=== PATIENT | male | born 1950 | race Caucasian/White ===

== ENCOUNTER 2021-09-23 12:42 | Inpatient (IN) | payer OTHER ==
--- NOTE | 2021-09-29 13:42 | R.PREADM ---
PRE-ADMISSION SCREENING FORM SCREENING DATE AND TIME 09/28/2021 12:39 (CDT) ANTICIPATED REHAB ADMISSION DATE 09/30/2021 REFERRING FACILITY [facility] REFERRAL DATE AND TIME 09/28/2021 12:40 (CDT) REFERRAL ROOM# 1505 ACUTE ADMIT DATE 09/21/2021 Previous Rehabilitation(s): No. 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 Everardo Tolbert M.D. MR# [id number] NAME MACHELLE ELAM ADDRESS [address] [facility] [address] [facility] [id number] DATE OF 1950 AGE 71 SSN# [id number] GENDER male MARITAL STATUS unknown race ADMIT FROM 02 - [facility] PRE-HOSPITAL LIVING SETTING 01 - Home (private home/apt. board/care, assisted living, jail, transitional living) HOME TYPE AND DETAILS Type of home: single family house # of levels in the residence: 1 # of steps within the residence: 0 # of steps to enter the residence: 0 PRE-HOSPITAL LIVING WITH Family/Relatives FAMILY SUPPORT Yes PRIMARY FAMILY CONTACT NAME KRISTA OGNZALEZ PRIMARY FAMILY CONTACT PHONE PRIMARY FAMILY CONTACT RELATIONSHIP Spouse PHONE PRIMARY FAMILY CONTACT ON ADM.? no IS PRIMARY FAMILY CONTACT AUTH. REP.? no 1ST EMERGENCY CONTACT KRISTA GONZALEZ 1ST CONTACT PHONE 1ST CONTACT RELATIONSHIP Spouse PHONE 1ST CONTACT ON ADM. no IS 1ST CONTACT AUTH. REP.? no PHONE 2ND CONTACT ON ADM.? no PATIENT EMPLOYMENT STATUS Retired (for age) PATIENT EMPLOYER No Employer PAYOR INFORMATION: 1ST PAYOR NAME WANDA MEDICARE 1ST PAYOR PHONE 1ST PAYOR INJURY/ILLNESS DUE TO ACCIDENT? No ANOTHER [employer] RESPONSIBLE? 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 Assess feet for temperature, pulses, color, and sensation. - Permissive Hypertension Administer medications when indicated by pt BP per MD order and monitor effectivness Assess/Monitor pt b/p regularly - Pain Anticipate the need for pain medication for optimal pain managment Assess/Monitor pt pain and treat with prescribed pain medications Educate pt on relaxation techniques and deep breathing Monitor for headaches Non pharmacological pain management - Parkinson's Disease Encourage deep breathing and coughing exercises every 2 hours Assess patient for pallor or cyanosis innailbeds and/or around the mouth Assess respiratory status for rate, depth, ease, use of accessory muscles, and work of breathing RISK FOR COMPLICATIONS: - DVT Active and Passive ROM exercises Assist patient with frequent position changes Elevate BLE - Skin Breakdown Repositioning q 2 hours Use of pillows or foam wedges while in bed Encourage ambulation as tolerated - Stroke Assess/ Monitor and maintain patient pain level Assess/ Monitor patient blood pressure - Respiratory Failure Administer supplemental O2 as needed Assess/ Monitor pt O2 sats Monitor pt O2 sats - Falls Provide assistance getting out of bed and with ambulation Provide assistive devices Assess for medication side effects Maintain call light within patient reach for easy access to nursing assistance SUMMARY OF ACUTE HOSPITALIZATION: On 09/19/2021 Pt. presented to [facility] with sudden onset of right-side weakness. Pt. is a 71 yo male of unknown race. On 09/19/2021 he was admitted to [facility] with diagnosis I63.81 Other cerebral infar ction due to occlusion or stenosis of small artery. His impairment category is Stroke 01 - Right Body (Left Brain) (01.2). Pre-morbidly, Pt. was independent/mod-I in Locomotion, Self-Care, and Communication; and he had good Balance, Transfers Control, Sphincter Control, Endurance, and Safety Awareness. Currently, he has deficits of Locomotion, Communication, Self-Care, Endurance, Transfers Control, Bal ance, and Safety Awareness. Pt. is now referred to [facility] for acute in-patient rehabilitation in order to maximize patient's functional independence in activities of daily living, strength, ROM, and mobi lity. Patient has realistic goal of being discharged at assistance level 6-Marian to reside at Home with Fam shadia/Relatives. 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 and stenosis of right carotid artery (I65.21) Other chronic pain (G89.29) Pain in thoracic spine (M54.6) Parkinson's disease (G20) Type 2 diabetes mellitus (E11) PAST SURGICAL HISTORY: Appendectomy back surgery cataract extraction coronary artery bypass graft coronary stent placement hernia repair knee surgery neck surgery pacemaker MEDICATION ALLERGIES: No Known Drug Allergies (NKDA) ENVIRONMENTAL ALLERGIES: - Substance Allergies None Known - Other Allergies None Known CODE STATUS: Full code WEIGHT/HEIGHT/BMI: WEIGHT 220 lbs HEIGHT 5' 10" BMI 31.6 DIET: - Diet Type Regular - Diet - Solid Texture Regular - Diet - Liquid Texture Regular - Tube Feed N/A SKIN DIAGRAM: Stabbing Back pain; level - 9. Pacemaker on Chest; extent - small; stage - NS(Not Stageable). Treatment - . REVIEW OF SYSTEMS: - Gen Alert and awake Lying in bed No apparent distress Oriented to: person, time, and place - Vital Signs Temperature: 97.5 F SBP/DBP: 110/62 Pulse: 52 Resp: 18 Vital signs stable, afebrile - CVS RRR VITAL SIGNS Temperature: 97.5 F SBP/DBP: 110/62 Pulse: 52 Resp: 18 Vital signs stable, afebrile MEDICATIONS/TREATMENT: Other- See attached MAR (Medication Administration Record). CURRENT SPHINCTER CONTROL: Pre-hospital bladder status: unspecified # of bladder accidents in the last 7 days prior to screenin Pre-hospital bowel status: unspecified # of bowel accidents in the last 7 days prior to screenin Last Bowel Movement Date: 09/22/2021 CURRENT LOCOMOTION STATUS: 60 feet without AD DETAILED CURRENT FUNCTIONAL STATUS: - Bladder accident frequency: 7-Ind - No accidents in the past 7 days - Bowel accident frequency: 7-Ind - No accidents in the past 7 days - Walking score based on distance walked: 0(N/A) - Wheelchair score based on distance traveled: 0(N/A) QI SCORES: - Self-Care A. Eating 04-Supervision or touching assistance B. Oral hygiene 04-Supervision or touching assistance C. Toileting hygiene 03-Partial/moderate assistance E. Shower/bathe self 02-Substantial/maximal assistance F. Upper body dressing 02-Substantial/maximal assistance G. Lower body dressing 03-Partial/moderate assistance H. Putting on/taking off footwear 04-Supervision or touching assistance - Mobility A. Roll left and right 04-Supervision or touching assistance B. Sit to lying 04-Supervision or touching assistance C. Lying to sitting on side of bed 04-Supervision or touching assistance D. Sit to stand 03-Partial/moderate assistance E. Chair/esr-dj-ytaug transfer 04-Supervision or touching assistance F. Toilet transfer 04-Supervision or touching assistance G. Car transfer 88-Not attempted due to medical condition or safety concerns I. Walk 10 feet 04-Supervision or touching assistance J. Walk 50 feet with two turns 04-Supervision or touching assistance K. Walk 150 feet 88-Not attempted due to medical condition or safety concerns L. Walking 10 feet on uneven surfaces 88-Not attempted due to medical condition or safety concerns M. 1 step (curb) 88-Not attempted due to medical condition or safety concerns N. 4 steps 88-Not attempted due to medical condition or safety concerns O. 12 steps 88-Not attempted due to medical condition or safety concerns P. Picking up object 88-Not attempted due to medical condition or safety concerns R. Wheel 50 feet with two turns 09-Not applicable S. Wheel 150 feet 09-Not applicable - Bladder and Bowel Bladder continence 2-Incontinent less than daily Bowel continence 1-Occasionally incontinent - Endurance Fair - Balance Fair - Safety Awareness Fair CURRENT FUNC. DEFICITS: Self-Care, Mobility, Endurance, Balance, and Safety Awareness HISTORY OF FALLS. HAS THE PATIENT HAD TWO OR MORE FALLS IN THE PAST YEAR OR ANY FALL WITH INJURY IN T HE PAST YEAR?: Yes PRIOR SURGERY. DID THE PATIENT HAVE MAJOR SURGERY DURING THE 100 DAYS PRIOR TO ADMISSION?: Yes THERAPY NOTES FROM ACUTE CARE: Attached. SPECIAL NEEDS: - Safety Concerns Skin breakdown and Fall precautions needed due to skin breakdown risk, Poor balance, Fall history, an d High fall risk - IV IVF inserted on unknown - Fall Precautions Due to poor balance PRECAUTIONS: - Fall Precaution Bed alarm TABS alarm Wheel chair alarm - DVT Risk due to restricted mobility and age - Incontinence Bowel Incontinence Bladder Incontinence - Skin Breakdown Risk due to restricted mobility due to restricted mobility and age - Pacer Precaution No forward shoulder flexion >90 degrees No weight lifting of arm on pacer side PATIENT NEEDS ACTIVE AND ONGOING THERAPEUTIC INTERVENTION OF MULTIPLE THERAPY DISCIPLINES, INCLUDING: - Dietary and Nutrition Adequate Nutrition. Nutritional Education. Nutritional Supplements. - Occupational Therapy Cognitive Retraining. Patient needs Occupational Therapy for a daily minimum of 1.5 hours at least 5 out of 7 days, to improve Activities of Daily Living, including: Eating, Grooming, Bathing, Dressing, Toileting, Toilet Transfers, Community Reintegration, Higher functional activities, Adaptive Equipme nt, Splinting, Household Tasks, and Other activities as determined. Visual Perceptual Training. - Speech Therapy Cognitive Training. Expressive Language Skills. Memory Strategies. Patient needs Speech Therapy for a daily minimum of 1.5 hours at least 5 out of 7 days, to improve: Swallowing, Cognition, Language Ski lls, and Compensatory Strategies. Receptive Language Skills. Speech Intelligibility Training. - Physical Therapy Patient needs Physical Therapy for a daily minimum of 1.5 hours at least 5 out of 7 days, to improve: Mobility, Strengthening, Transfers, Stretching, ROM, Endurance, Ability to manage stairs, Gait, and Balance. PATIENT NEEDS CLOSE MEDICAL SUPERVISION BY A REHABILITATION PHYSICIAN FOR: Coordination of Treatment Team Diabetes Management Medical and Co-Morbidity Management Pain Management Bowel and Bladder Management Wound Care PATIENT REQUIRES 24X7 REHAB NURSING FOR MEDICAL AND FUNCTIONAL MGT. OF THE FOLLOWING DEFICITS: Pain Management Patient requires 24x7 Rehabilitation Nursing for: Pain Issues, Identifying and preventing risk factor s, Monitoring and reporting current medical conditions, Assisting with ambulation and transfer, Ezequiel ting with all ADL-s, Teaching patients about disease process and medications, Family teaching, Provid ing safe environment, Bowel and Bladder Issues, Skin Integrity, and Medication Management Skin Integrity PATIENT REQUIRES INTENSIVE, COORDINATED INTERDISCIPLINARY APPROACH TO REHAB: Patient needs Dietary and Nutrition Services for: Adequate Nutrition, Nutritional Supplements, and Nu tritional Education Patient needs Electronic Scale Assembler And Tester and/or Case Management for: Discharge Planning, Arranging Home Equipmen t or Services, and Family Interventions PATIENT REHAB POTENTIAL: Ayesha ELAM is able and expected to receive 3 hours of individualized therapy daily on at least 5 of every 7 days DoronLuis Enrique GONZALEZLuis's prognosis for significant practical improvement within a reasonable period of time appe ars Good Expected level of measurable improvement will be of a practical value to Ayesha ELAM's functional cap acity or adaptations to impairments Has a viable Discharge Plan Medically appropriate; condition is sufficiently stable to participate in intensive rehab program DISCHARGE PLAN: - Estimated Length of Stay (days) 17. - Consensus on plan Discharge plan has been discussed with primary caregiver. Patient/Family is in agreement with the federico n. Primary caregiver is in agreement with the plan. - Patient/Family Goals Return home independently. - Potential barriers to discharge Any lines must be removed or patient/caregiver needs to be educated on line care. - Planned Living Setting Upon Discharge Home, to live with Family/Relatives. Transitional Living. RECOMMENDED CARE LEVEL: IRF RECOMMENDATION DETAILS: Recommended Admission to Comprehensive Rehabilitation Program to Increase Functional Walker SCREENER'S COMPLETENESS CONFIRMATION: - Screening Confirmation The patient data collection on this preadmission screening form is finished PHYSICIANS REVIEW AND ADMISSION DETERMINATION Admit - Based on my review of the Pre-Admission Screening results, in my medical judgment and experie nce, I concur with the findings and recommend admission to [facility], as this patient requires an IRF level of care. SIGNATURE PANEL: Clinical Liaison - [electronically] signed by Ghislaine Borjas on 09/28/2021 at 12:46 (CDT) Clinic Lpn - [electronically] signed by Jez Kirkpatrick PT on 09/29/2021 at 12:44 (CDT) Physician Reviewer - [electronically] signed by Dr. Everardo Tolbert M.D. on 09/29/2021 at 13:41 (CDT )
[2021-09-29] MEDS ORDERED: GLUCAGON 1 MG/VIAL IM PRN (20:28)
[2021-09-29] MEDS ORDERED: ACETAMINOPHEN 325 MG TABLET PO PRN (20:28)
[2021-09-29] MEDS ORDERED: NITROGLYCERIN 0.4 MG/TAB SL PRN (20:28)
[2021-09-29] MEDS ORDERED: BISACODYL 10 MG RECTAL SUPP PR PRN (20:28)
[2021-09-29] MEDS ORDERED: BENZONATATE 100 MG CAP PO PRN (20:28)
[2021-09-29] MEDS ORDERED: ALBUTEROL 2.5 MG/3 ML NEB SOL NEB PRN (20:28)
[2021-09-29] MEDS ORDERED: CETIRIZINE HCL 5 MG TABLET PO PRN (20:28)
[2021-09-29] MEDS ORDERED: POLYETHYL GLY 3350 17 GM/DOSE PO PRN (20:28)
[2021-09-29] MEDS ORDERED: D50W 25 GM/50 ML SYRINGE IV PRN (20:28)
[2021-09-29] MEDS ORDERED: D10W 125 ML IV PRN (20:45)
[2021-09-29] MEDS: ATORVASTATIN 40 MG TAB PO SCH (21:23)
[2021-09-29] MEDS: CARBIDOPA/LEVODOPA 25/100 TAB PO SCH (21:23)
[2021-09-29] MEDS: INSULIN -REGULAR HUMAN 50 UNIT/0.5 ML ML SQ SCH (21:27)
[2021-09-30] MEDS ORDERED: ZOLPIDEM TARTRATE 5 MG TABLET PO PRN (02:56)
[2021-09-30 04:38] LABS: Absolute Lymphocytes (CBC) 2.2 K/uL (0.7-4.9); Lymphocytes % 32.4 % (15.3-44.8); MCV 81.2 fL (80-100); MPV 7.3 fL (7.6-11.3); RBC Red Blood Cell Count 5.06 M/uL (4.33-5.43)
[2021-09-30 05:06] LABS: Urine Appearance Clear (Clear); Urine Bilirubin Negative (Negative); Urine Blood Negative (Negative); Urine Color Yellow (Yellow); Urine Glucose 2+ (Negative); Urine Protein Negative (Negative); Urine Specific Gravity 1.025 (1.005-1.030); Urine Urobilinogen 0.2 mg/dL (0.2-1.0); Urine pH 5.5 (5.0-7.0)
[2021-09-30 05:11] LABS: Albumin 3.3 g/dL (3.4-5.0); Prealbumin 14.9 mg/dL (20-40)
[2021-09-30 05:15] LABS: Urine Bacteria <20 /HPF (NONE SEEN); Urine RBC NONE SEEN /HPF (NONE SEEN)
[2021-09-30 05:16] LABS: Magnesium 1.9 mg/dL (1.8-2.4); Potassium 3.9 mmol/L (3.5-5.1)
[2021-09-30 05:36] LABS: Blood Morphology Comment NOT SEEN (NOT SEEN); Platelet Estimate ADEQ; White Blood Cell Scan OK (OK)
[2021-09-30] MEDS: VALSARTAN 80 MG TAB PO SCH (07:11)
[2021-09-30] MEDS: CARBIDOPA/LEVODOPA 25/100 TAB PO SCH ×3 (07:26→20:22)
[2021-09-30] MEDS: CLOPIDOGREL 75 MG TABLET PO SCH (07:26)
[2021-09-30] MEDS: VITAMIN B COMPLEX 1 CAP PO SCH (07:26)
[2021-09-30] MEDS: ASPIRIN EC 81 MG TAB PO SCH (07:26)
[2021-09-30] MEDS: THIAMINE HCL 100 MG TABLET PO SCH (07:26)
[2021-09-30] MEDS: ENOXAPARIN 30 MG/0.3 ML SQ SCH (07:27)
[2021-09-30] MEDS: INSULIN -REGULAR HUMAN 50 UNIT/0.5 ML ML SQ SCH ×4 (07:30→20:22)
[2021-09-30] MEDS ORDERED: LIDOCAINE 4% PATCH TOP SCH (08:00)
[2021-09-30] MEDS: cloNIDine HCL 0.1 MG TAB PO PRN (09:03)
[2021-09-30] MEDS ORDERED: LIDOCAINE 4% PATCH TOP ONE (15:00)
--- NOTE | 2021-09-30 17:24 | R.HP ---
HISTORY AND PHYSICAL FACILITY: [facility] ENCOUNTER DATE AND TIME: 09/30/2021 17:11 (CDT) MR#: [id number] NAME MACHELLE ELAM ADDRESS: [address] [place] [address] CITY: [place]IP [id number] PHONE: DATE OF : 1950 AGE: 71 SSN# [id number] GENDER: Male DEXTERITY Unknown dexterity MARITAL STATUS Unknown race PRE-HOSPITAL LIVING SETTING 01 - Home (private home/apt. board/care, assisted living, fci, transitional living) PRE-HOSPITAL LIVING WITH Family/Relatives ENCOUNTER PHYSICIAN: Dr. Everardo Tolbert M.D. 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 presented to [facility] with sudden onset of right-side weakness. Pt. is a 71 yo male of unknown race. On 09/19/2021 he was admitted to [facility] with diagnosis I63.81 Other cerebral infar ction due to occlusion or stenosis of small artery. His impairment category is Stroke 01 - Right Body (Left Brain) (01.2). Pre-morbidly, Pt. was independent/mod-I in Locomotion, Self-Care, and Communication; and he had good Balance, Transfers Control, Sphincter Control, Endurance, and Safety Awareness. Currently, he has deficits of Locomotion, Communication, Self-Care, Endurance, Transfers Control, Bal ance, and Safety Awareness. Pt. is now referred to [facility] for acute in-patient rehabilitation in order to maximize patient's functional independence in activities of daily living, strength, ROM, and mobi lity. Patient has realistic goal of being discharged at assistance level 6-Marian to reside at Home with Fam shadia/Relatives. 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) Other chronic pain (G89.29) Pain in thoracic spine (M54.6) Parkinson's disease (G20) Type 2 diabetes mellitus (E11) PAST SURGICAL HISTORY: Appendectomy back surgery cataract extraction coronary artery bypass graft coronary stent placement hernia repair knee surgery neck surgery pacemaker SOCIAL HISTORY: - Home Living Family/Relatives REVIEW OF SYSTEMS: - Gen No Chills Fatigue No Fever - Eyes No Double Vision No itchiness - ENMT No Difficulty Swallowing - CVS No Chest Discomfort No Chest Pain No Fatigue No Weight Gain - Resp No Cough No Shortness of Breath - GI Continent No Abdominal Pain No Constipation No Diarrhea - Continent No Kidney Pain No Painful Urination No Urinary Urgency - MSK Joint Pain Muscle Cramps Low back pain - Skin No Itching No Rash No Suspicious Lesions - Neuro Coordination Difficulty Difficulty with Concentration No Memory Loss No Seizures Weakness - Psych No Anxiety No Depression No HIV Exposure No Persistent Infections No Seasonal Allergies - Endo No Cold/Heat Intolerance No Excessive Hunger No Excessive Thirst No Excessive Urination PHYSICAL EXAM - Gen Alert and awake Lying in bed No apparent distress Oriented to: person, time, and place - Skin No skin breakdown. Normacephalic - Eyes No abnormalities - ENMT No abnormalities - Neck No abnormalities - CVS RRR - Chest No abnormalities - Resp No wheezing - Abd Soft - GI + bowel sounds Deferred - No abnormalities - Ext No significant edema - MSK 4+/5 weakness in right upper and lower extremities - Neuro 4/5 strength right upper and lower extremities. - Psych No abnormalities VITAL SIGNS Temperature: 97.5 F SBP/DBP: 181/87 Pulse: 60 Resp: 16 NURSING: - Shower allowing shower - Lab Results blood Sugar Check ACHS - Bladder care per protocol - Skin care per protocol PRECAUTIONS: - Fall Precaution Bed alarm TABS alarm Wheel chair alarm - DVT Risk due to restricted mobility and age - Incontinence Bowel Incontinence Bladder Incontinence - Skin Breakdown Risk due to restricted mobility due to restricted mobility and age - Pacer Precaution No forward shoulder flexion >90 degrees No weight lifting of arm on pacer side ACTIVITIES OOB only with supervision QI SCORES: - Self-Care A. Eating 04-Supervision or touching assistance B. Oral hygiene 04-Supervision or touching assistance C. Toileting hygiene 03-Partial/moderate assistance E. Shower/bathe self 02-Substantial/maximal assistance F. Upper body dressing 02-Substantial/maximal assistance G. Lower body dressing 03-Partial/moderate assistance H. Putting on/taking off footwear 04-Supervision or touching assistance - Mobility A. Roll left and right 04-Supervision or touching assistance B. Sit to lying 04-Supervision or touching assistance C. Lying to sitting on side of bed 04-Supervision or touching assistance D. Sit to stand 03-Partial/moderate assistance E. Chair/[id number]-[id number] transfer 04-Supervision or touching assistance F. Toilet transfer 04-Supervision or touching assistance G. Car transfer 88-Not attempted due to medical condition or safety concerns I. Walk 10 feet 04-Supervision or touching assistance J. Walk 50 feet with two turns 04-Supervision or touching assistance K. Walk 150 feet 88-Not attempted due to medical condition or safety concerns L. Walking 10 feet on uneven surfaces 88-Not attempted due to medical condition or safety concerns M. 1 step (curb) 88-Not attempted due to medical condition or safety concerns N. 4 steps 88-Not attempted due to medical condition or safety concerns O. 12 steps 88-Not attempted due to medical condition or safety concerns P. Picking up object 88-Not attempted due to medical condition or safety concerns R. Wheel 50 feet with two turns 09-Not applicable S. Wheel 150 feet 09-Not applicable - Bladder and Bowel Bladder continence 2-Incontinent less than daily Bowel continence 1-Occasionally incontinent - Endurance Fair - Balance Fair - Safety Awareness Fair CURRENT FUNC. DEFICITS: Self-Care, Mobility, Endurance, Balance, and Safety Awareness MEDICATIONS: - Other See attached MAR (Medication Administration Record) ASSESSMENT: On 09/19/2021 Pt. presented to [facility] with sudden onset of right-side weakness.Pt. is a 71 yo male of unknown race.On 09/19/2021 he was admitted to [facility] with diag nosis I63.81 Other cerebral infarction due to occlusion or stenosis of small artery.His impairment ca tegory is Stroke 01 - Right Body (Left Brain) (01.2).Pre-morbidly, Pt. was independent/mod-I in [place] motion, Self-Care, and Communication; and he had good Balance, Transfers Control, Sphincter Control, Endurance, and Safety Awareness.Currently, he has deficits of Locomotion, Communication, Self-Care, E ndurance, Transfers Control, Balance, and Safety Awareness.Pt. is now referred to [facility] for acute in-patient rehabilitation in order to maximize patient's functional independ ence in activities of daily living, strength, ROM, and mobility.- Rehab Goal Patient has realistic goal of being discharged at assistance level 6-Marian to reside at Home with Fam shadia/Relatives. for Dementia, TBI, Stroke, or others - Physical Therapy Gait dysfunction - to improve, our physical therapists will perform initial evaluation of pt's status upon admission and devise an individualized program for Gait Training, and Wheel Chair mobility Inability to transfer - to improve, our physical therapists will perform initial evaluation of pt's s tatus upon admission and devise an individualized program for Bed mobility Need for home safety evaluation - to improve, our physical therapists will perform initial evaluation of pt's status upon admission and devise an individualized program for Home Evaluation Need in caregiver upon discharge - to improve, our physical therapists will perform initial evaluatio n of pt's status upon admission and devise an individualized program for Caregiver Training New precaution - to improve, our physical therapists will perform initial evaluation of pt's status u pramod admission and devise an individualized program for Patient precaution education Edema - to improve, our physical therapists will perform initial evaluation of pt's status upon admi ssion and devise an individualized program for Elevation Training, and Lymphedema Therapy Pain - to improve, our physical therapists will perform initial evaluation of pt's status upon admiss ion and devise an individualized program for Modalities Poor balance - to improve, our physical therapists will perform initial evaluation of pt's status upo n admission and devise an individualized program for Balance Training Poor endurance - to improve, our physical therapists will perform initial evaluation of pt's status u pramod admission and devise an individualized program for Endurance Training Weakness - to improve, our physical therapists will perform initial evaluation of pt's status upon ad mission and devise an individualized program for Aquatic Therapy, Neuromuscular Reeducation, and Stre ngthening Achieving independence - to improve, our physical therapists will perform initial evaluation of pt's status upon admission and devise an individualized program for Community Reintegration Activities - Occupational Therapy ADL deficits - to improve, our occupation therapists will perform initial evaluation of pt's status u pramod admission and devise an individualized program for Bathing, Bed mobility, Community Reintegration , Cooking, Dressing, Eating, Fine Motor Skills, Grooming, Homemaking, Kitchen Mobility, Laundry, Laine ent Education, Safety Awareness, Splinting - Positioning, Transfers(Toilet, Tub, Shower), and Wheel C hair Management Need for career counselor - to improve, our occupation therapists will perform initial evaluation of pt's s tatus upon admission and devise an individualized program for Caregiver Training Weakness - to improve, our occupation therapists will perform initial evaluation of pt's status upon admission and devise an individualized program for Aquatic Therapy, Balance, Endurance, UE ROM, and U E strengthening MEDICAL PLAN: - Diet Type Start Regular - Diet - Liquid Texture Start Regular - Tube Feed Start N/A - Incontinence Bowel Incontinence Bladder Incontinence - Pacer Precaution No forward shoulder flexion >90 degrees No weight lifting of arm on pacer side - Lab Results blood Sugar Check ACHS - Bladder care per protocol - DVT Risk due to restricted mobility and age - Skin Breakdown Risk due to restricted mobility due to restricted mobility and age - Weight Bearing Precaution WBAT right LE - Fall Precaution Bed alarm TABS alarm Wheel chair alarm - Skin care per protocol - Other See attached MAR (Medication Administration Record) - Diet - Solid Texture Regular - Shower shower DISCHARGE PLAN: - Estimated Length of Stay (days) 17. - Consensus on plan Discharge plan has been discussed with primary caregiver. Patient/Family is in agreement with the federico n. Primary caregiver is in agreement with the plan. - Patient/Family Goals Return home independently. - Potential barriers to discharge Any lines must be removed or patient/caregiver needs to be educated on line care. - Planned Living Setting Upon Discharge Home, to live with Family/Relatives. Transitional Living. SIGNATURE PANEL: (CDT)
--- NOTE | 2021-09-30 17:28 | PAPE ---
POST ADMISSION PHYSICIAN EVALUATION PATIENT: [facility] MR# [id number] REFERRING DOCTOR omid Yi EVALUATION DATE AND TIME 09/30/2021 17:23 (CDT) NAME MACHELLE ELAM DATE OF 1950 AGE 71 PHONE SSN# [id number] GENDER male EVALUATING PHYSICIAN Dr. Everardo Tolbert M.D. 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 PATIENT NEEDS CLOSE MEDICAL SUPERVISION BY A REHABILITATION PHYSICIAN FOR: Coordination of Treatment Team Diabetes Management Medical and Co-Morbidity Management Pain Management Bowel and Bladder Management Wound Care PATIENT REQUIRES 24X7 REHAB NURSING FOR MEDICAL AND FUNCTIONAL MGT. OF THE FOLLOWING DEFICITS: Pain Management Patient requires 24x7 Rehabilitation Nursing for: Pain Issues, Identifying and preventing risk factor s, Monitoring and reporting current medical conditions, Assisting with ambulation and transfer, Ezequiel ting with all ADL-s, Teaching patients about disease process and medications, Family teaching, Provid ing safe environment, Bowel and Bladder Issues, Skin Integrity, and Medication Management Skin Integrity PATIENT REQUIRES INTENSIVE, COORDINATED INTERDISCIPLINARY APPROACH TO REHAB: Patient needs Dietary and Nutrition Services for: Adequate Nutrition, Nutritional Supplements, and Nu tritional Education Patient needs Shactor and/or Case Management for: Discharge Planning, Arranging Home Equipmen t or Services, and Family Interventions LIST OF IDENTIFIED AND POTENTIAL PROBLEMS: Alteration in leisure activities Bladder, Incontinence Bowel, Incontinence Diabetes, Hyperglycemia/hypoglycemia Issues Falls, Actual or Potential Infection, Actual or Potential Mobility Impaired Pain, Alteration in Comfort Self Care Deficit Skin Integrity, Actual or Potential Urinary Tract Infection (UTI), Actual or Potential RISK FOR COMPLICATIONS - DVT Active and Passive ROM exercises. Assist patient with frequent position changes. Elevate BLE. - Skin Breakdown Repositioning q 2 hours. Use of pillows or foam wedges while in bed. Encourage ambulation as tolerate d. - Stroke Assess/ Monitor and maintain patient pain level. Assess/ Monitor patient blood pressure. - Respiratory Failure Administer supplemental O2 as needed. Assess/ Monitor pt O2 sats. Monitor pt O2 sats. - Falls Provide assistance getting out of bed and with ambulation. Provide assistive devices. Assess for medi cation side effects. Maintain call light within patient reach for easy access to nursing assistance. INTERVENTIONS - Stroke Provide aggressive PT, OT and Speech to improve pt level of function. Assess pt neuro status regularl y. - Type 2 Diabetes Assess for signs of hyperglycemia. Assess feet for temperature, pulses, color, and sensation. - Permissive Hypertension Administer medications when indicated by pt BP per MD order and monitor effectivness. Assess/Monitor pt b/p regularly. - Pain Anticipate the need for pain medication for optimal pain managment. Assess/Monitor pt pain and treat with prescribed pain medications. Educate pt on relaxation techniques and deep breathing. Monitor for headaches. Non pharmacological pain management. - Parkinson's Disease Encourage deep breathing and coughing exercises every 2 hours. Assess patient for pallor or cyanosis innailbeds and/or around the mouth. Assess respiratory status for rate, depth, ease, use of acces mavis muscles, and work of breathing. PATIENT COULD BE AT RISK FOR COMPLICATIONS FROM ADVERSE MEDICAL CONDITIONS DUE TO HIS/HER COMORBIDITI ES AND THE RIGORS OF THE INTENSIVE REHABILLITATION PROGRAM. METHODS OR INTERVENTIONS TO AVOID COMPLIC ATIONS INCLUDE: - Bleeding Assess lab values and manage abnormalities. Nursing to teach precautions for anti-coagulation therapy . Stroke patients assessed for lethargy or change in status. Wound to be assessed every shift. - Infection Clinical staff to assess and manage the signs and symptoms of infection including fever, redness, war mth, etc. - Urinary Tract Infection - Aspiration Clinical staff will assess and manage coughing, drooling, congestion. - Falls Patient will be evaluated for Fall Precautions and will be placed on Fall Precautions as indicated pe r protocol. - Skin Breakdown Nursing will assess skin daily using assessment tool and will place on Skin Breakdown Precautions as indicated per protocol. - Pain Clinical staff may employ non-medication methods such as massage, distraction, decrease stimulus, etc . as needed. Clinical staff will assess patient's pain level every shift per protocol to assess and e nsure pain management effectiveness. Medications will be given and the pain level re-assessed. PRELIMINARY PLAN OF CARE: - Physical Therapy Patient needs Physical Therapy for a daily minimum of 1.5 hours at least 5 out of 7 days, to improve: Mobility, Strengthening, Transfers, Stretching, ROM, Endurance, Ability to manage stairs, Gait, and Balance. - Speech Therapy Patient needs Speech Therapy for a daily minimum of 0.5 hours at least 5 out of 7 days, to improve: S wallowing, Cognition, Language Skills, and Compensatory Strategies. - Rehabilitation Nursing Patient requires 24x7 Rehabilitation Nursing for: Pain Issues, Identifying and preventing risk factor s, Monitoring and reporting current medical conditions, Assisting with ambulation and transfer, Ezequiel ting with all ADL-s, Teaching patients about disease process and medications, Family teaching, Provid ing safe environment, Bowel and Bladder Issues, Skin Integrity, and Medication Management. Patient needs Shactor and/or Case Management for: Discharge Planning, Arranging Home Equipmen t or Services, and Family Interventions. - Dietary and Nutrition Services Patient needs Dietary and Nutrition Services for: Adequate Nutrition, Nutritional Supplements, and Nu tritional Education. - Occupational Therapy Patient needs Occupational Therapy for a daily minimum of 1.5 hours at least 5 out of 7 days, to impr ove Activities of Daily Living, including: Eating, Grooming, Bathing, Dressing, Toileting, Toilet Tra nsfers, Community Reintegration, Higher functional activities, Adaptive Equipment, Splinting, Househo ld Tasks, and Other activities as determined. QI SCORES: - Self-Care A. Eating 04-Supervision or touching assistance B. Oral hygiene 04-Supervision or touching assistance C. Toileting hygiene 03-Partial/moderate assistance E. Shower/bathe self 02-Substantial/maximal assistance F. Upper body dressing 02-Substantial/maximal assistance G. Lower body dressing 03-Partial/moderate assistance H. Putting on/taking off footwear 04-Supervision or touching assistance - Mobility A. Roll left and right 04-Supervision or touching assistance B. Sit to lying 04-Supervision or touching assistance C. Lying to sitting on side of bed 04-Supervision or touching assistance D. Sit to stand 03-Partial/moderate assistance E. Chair/qzj-zd-fptrs transfer 04-Supervision or touching assistance F. Toilet transfer 04-Supervision or touching assistance G. Car transfer 88-Not attempted due to medical condition or safety concerns I. Walk 10 feet 04-Supervision or touching assistance J. Walk 50 feet with two turns 04-Supervision or touching assistance K. Walk 150 feet 88-Not attempted due to medical condition or safety concerns L. Walking 10 feet on uneven surfaces 88-Not attempted due to medical condition or safety concerns M. 1 step (curb) 88-Not attempted due to medical condition or safety concerns N. 4 steps 88-Not attempted due to medical condition or safety concerns O. 12 steps 88-Not attempted due to medical condition or safety concerns P. Picking up object 88-Not attempted due to medical condition or safety concerns R. Wheel 50 feet with two turns 09-Not applicable S. Wheel 150 feet 09-Not applicable - Bladder and Bowel Bladder continence 2-Incontinent less than daily Bowel continence 1-Occasionally incontinent - Endurance Fair - Balance Fair - Safety Awareness Fair POTENTIAL FUNCTIONAL GOALS FOR PATIENT TO ACHIEVE BY DISCHARGE: - Safety Precaution Patient will remain free from falls or injury at time of discharge. - Bed Mobility Patient will perform bed mobility at 4-Stefan level of assistance. - Transfers Patient will complete transfers from bed to chair at 4-Stefan level of assistance. - Mobility Patient will ambulate 150 ft with 4-Stefan level of assistance with RW. PATIENT REHAB POTENTIAL Ayesha ELAM is able and expected to receive 3 hours of individualized therapy daily on at least 5 of every 7 days Ayesha ELAM's prognosis for significant practical improvement within a reasonable period of time appe ars Good Expected level of measurable improvement will be of a practical value to Ayesha ELAM's functional cap acity or adaptations to impairments Has a viable Discharge Plan Medically appropriate; condition is sufficiently stable to participate in intensive rehab program DISCHARGE PLAN: - Estimated Length of Stay (days) 17. - Consensus on plan Discharge plan has been discussed with primary caregiver. Patient/Family is in agreement with the federico n. Primary caregiver is in agreement with the plan. - Patient/Family Goals Return home independently. - Potential barriers to discharge Any lines must be removed or patient/caregiver needs to be educated on line care. - Planned Living Setting Upon Discharge Home, to live with Family/Relatives. Transitional Living. CONCLUSION ON REHABILITATION NECESSITY: I have evaluated patient's pre-admission functional status and, comparing it to the patient's post-ad mission functional status now, I conclude that the pre-admission assessment was accurate. Patient's c ondition on admission supports the medical necessity of admission to [facility]. It is safe to proceed with patient's therapy program. SIGNATURE PANEL: (CDT)
[2021-09-30] MEDS: ATORVASTATIN 40 MG TAB PO SCH (20:22)
[2021-09-30] MEDS: ENSURE HIGH PROTEIN 237 ML CAN PO SCH (20:22)
[2021-09-30] MEDS: TRAMADOL HCL 50 MG TAB PO PRN (20:28)
[2021-10-01] MEDS: TRAMADOL HCL 50 MG TAB PO PRN ×3 (04:09→14:22)
[2021-10-01] MEDS: INSULIN -REGULAR HUMAN 50 UNIT/0.5 ML ML SQ SCH ×4 (07:03→21:43)
[2021-10-01] MEDS: VALSARTAN 80 MG TAB PO SCH (07:17)
[2021-10-01] MEDS: THIAMINE HCL 100 MG TABLET PO SCH (07:19)
[2021-10-01] MEDS: ENOXAPARIN 30 MG/0.3 ML SQ SCH (07:19)
[2021-10-01] MEDS: CARBIDOPA/LEVODOPA 25/100 TAB PO SCH ×3 (07:21→19:48)
[2021-10-01] MEDS: CLOPIDOGREL 75 MG TABLET PO SCH (07:21)
[2021-10-01] MEDS: VITAMIN B COMPLEX 1 CAP PO SCH (07:21)
[2021-10-01] MEDS: ASPIRIN EC 81 MG TAB PO SCH (07:21)
[2021-10-01] MEDS: LIDOCAINE 4% PATCH TOP SCH (07:25)
[2021-10-01] MEDS ORDERED: GABAPENTIN 100 MG CAP PO SCH (08:00)
[2021-10-01] MEDS: ENSURE HIGH PROTEIN 237 ML CAN PO SCH ×2 (08:00→19:47)
--- NOTE | 2021-10-01 09:49 | P.RH.PN ---
Estimated Length of Stay: 14 Expected Discharge Date: 10/13/21 Discharge Disposition Plan: Home Family Support: Yes Longterm Goal: Mobility, Transfers, Self Care Vital Signs: Last Vital Signs Temp 97.9 F 10/01/21 07:44 Pulse 64 10/01/21 07:44 Resp 16 10/01/21 09:10 BP 194/93 H 10/01/21 07:44 Pulse Ox 93 10/01/21 09:10 Laboratory: Laboratory Last Values WBC 6.9 K/uL (4.3-10.9) 09/30/21 03:54 RBC 5.06 M/uL (4.33-5.43) 09/30/21 03:54 Hgb 14.1 g/dL (13.6-17.9) 09/30/21 03:54 Hct 41.0 % (39.6-49.0) 09/30/21 03:54 MCV 81.2 fL (80-100) 09/30/21 03:54 MCH 27.8 pg (27.0-35.0) 09/30/21 03:54 MCHC 34.3 g/dL (32.0-36.0) 09/30/21 03:54 RDW 15.1 % (12.1-15.2) 09/30/21 03:54 Plt Count 185 K/uL (152-406) 09/30/21 03:54 MPV 7.3 fL (7.6-11.3) L 09/30/21 03:54 Neutrophils % 54.9 % (41.7-73.7) 09/30/21 03:54 Lymphocytes % 32.4 % (15.3-44.8) 09/30/21 03:54 Monocytes % 8.5 % (3.3-12.3) 09/30/21 03:54 Eosinophils % 3.5 % (0-4.4) 09/30/21 03:54 Basophils % 0.7 % (0-1.3) 09/30/21 03:54 Absolute Neutrophils 3.8 K/uL (1.8-8.0) 09/30/21 03:54 Absolute Lymphocytes 2.2 K/uL (0.7-4.9) 09/30/21 03:54 Absolute Monocytes 0.6 K/uL (0.1-1.3) 09/30/21 03:54 Absolute Eosinophils 0.2 K/uL (0-0.5) 09/30/21 03:54 Absolute Basophils 0.0 K/uL (0-0.5) 09/30/21 03:54 Platelet Estimate Adeq 09/30/21 03:54 Morphology Comment Not seen (NOT SEEN) 09/30/21 03:54 Sodium 136 mmol/L (136-145) 09/30/21 03:59 Potassium 3.9 mmol/L (3.5-5.1) 09/30/21 03:59 Chloride 105 mmol/L (98-107) 09/30/21 03:59 Carbon Dioxide 25 mmol/L (21-32) 09/30/21 03:59 Anion Gap 9.9 mEq/L (5.0-15.0) 09/30/21 03:59 BUN 14 mg/dL (7-18) 09/30/21 03:59 Creatinine 0.75 mg/dL (0.55-1.3) 09/30/21 03:59 Est GFR (CKD-EPI) 96 ml/min (=/>90) 09/30/21 03:59 Glucose 140 mg/dL (74-106) H 09/30/21 03:59 POC Glucose 133 mg/dL (65-120) H 10/01/21 06:43 Calcium 8.9 mg/dL (8.5-10.1) 09/30/21 03:59 Magnesium 1.9 mg/dL (1.8-2.4) 09/30/21 03:59 Albumin 3.3 g/dL (3.4-5.0) L 09/30/21 03:59 Prealbumin 14.9 mg/dL (20-40) L 09/30/21 03:59 Urine Color Yellow (Yellow) 09/30/21 05:03 Urine Appearance Clear (Clear) 09/30/21 05:03 Urine pH 5.5 (5.0-7.0) 09/30/21 05:03 Ur Specific [place] 1.025 (1.005-1.030) 09/30/21 05:03 Glucose (UA)(Auto) 2+ (Negative) H 09/30/21 05:03 Urine Ketones Negative (Negative) 09/30/21 05:03 Urine Blood Negative (Negative) 09/30/21 05:03 Urine Nitrite Negative (Negative) 09/30/21 05:03 Urine Bilirubin Negative (Negative) 09/30/21 05:03 Urine Urobilinogen 0.2 mg/dL (0.2-1.0) 09/30/21 05:03 Ur Leukocyte Esterase Negative (Negative) 09/30/21 05:03 Urine RBC None seen /HPF (NONE SEEN) 09/30/21 05:03 Urine WBC <5 /HPF (<5) 09/30/21 05:03 Ur Squamous Epith Cells <5 /HPF (NONE SEEN) 09/30/21 05:03 Ur Urothelial Cells Cancelled 09/30/21 04:10 Calcium Oxalate Crystal Cancelled 09/30/21 04:10 Uric Acid Crystals Cancelled 09/30/21 04:10 Triple Phos Crystals Cancelled 09/30/21 04:10 Other Crystals Cancelled 09/30/21 04:10 Amorphous Sediment Cancelled 09/30/21 04:10 Glitter Cells Cancelled 09/30/21 04:10 Urine Bacteria <20 /HPF (NONE SEEN) 09/30/21 05:03 Hyaline Casts Cancelled 09/30/21 04:10 Fine Granular Casts Cancelled 09/30/21 04:10 Coarse Granular Casts Cancelled 09/30/21 04:10 Waxy Casts Cancelled 09/30/21 04:10 RBC Casts Cancelled 09/30/21 04:10 WBC Casts Cancelled 09/30/21 04:10 Urine Mucus Cancelled 09/30/21 04:10 Urine Other Cancelled 09/30/21 04:10 Urine Trichomonas Cancelled 09/30/21 04:10 Urine Yeast Cancelled 09/30/21 04:10 Ur Yeast w Hyphae Cancelled 09/30/21 04:10 Urine Yeast (Budding) Cancelled 09/30/21 04:10 Urine Sperm Cancelled 09/30/21 04:10 Urine Culture Reflexed Not needed 09/30/21 05:03 Urine Total Volume Cancelled 09/30/21 04:10 Urine Total Protein Negative (Negative) 09/30/21 05:03 SARS-CoV-2 Rap RNA(RT-PCR) Negative (NEGATIVE) 09/29/21 20:00 Smear Scan Ok (OK) 07/14/22 03:54 Weight: 213 lb 9.6 oz Wound Present: Yes Closed Surgical Incision Present: No Physician Update: Labs reviewed. CGA bed mobility, sit to stand min assist. 10' with min assist. WC 150' with min assistance. His left arm is in a sling due to a pacemaker restriction for 4 weeks total. He has residual right upper and lower extremity weakness 3-4/5. Will be evaluated today by speech. Set up for grooming, upper body dressing, mod assistance for showering. Summary: Patient's care plan and intermediate goals have been reviewed and revised as necessary. Please see the Rehabilitation Signature page for all necessary signatures.
[2021-10-01] MEDS: cloNIDine HCL 0.1 MG TAB PO PRN (11:18)
[2021-10-01] MEDS ORDERED: HYDROCODONE/APAP 5/325 MG TAB PO PRN (11:50)
--- NOTE | 2021-10-01 12:24 | RAD REPORT ---
EXAM DESCRIPTION: CT - Head Brain Wo Cont - 10/01/2021 12:07 pm CLINICAL HISTORY: hx of stroke COMPARISON: No comparisons TECHNIQUE: Axial 5 mm thick images of the head were obtained without IV contrast. All CT scans are performed using dose optimization technique as appropriate and may include automated exposure control or mA/KV adjustment according to patient size. FINDINGS: No intracranial hemorrhage is present. Patient has a chronic ischemic pattern in the cereb ral white matter that could potentially mask nonhemorrhagic CVA. Approximately 15 millimeter diameter area of diminished attenuation is seen in the deep periventricular white matter at the left frontopa rietal junction. This continues inferiorly along the lateral margin of thalamus and likely involves t he posterior limb internal capsule. This is diminished in attenuation compared to the contralateral s nissa. Acute or subacute CVA suspected. Focal decreased attenuation in the left anterior desmond could be acute or chronic ischemic change. CT imaging in the posterior fossa is limited. No acute infarction seen at the cerebral cortical level. No cortical edema or sulcal effacement. No a bnormal extra-axial fluid collections. Ventricles are normal size. Atrophy is mild. Mastoid air cells and visualized portions of the paranasal sinuses are clear. No acute bony findings. IMPRESSION: No intracranial hemorrhage is present. No focal mass lesion identified. Acute or subacute nonhemorrhagic CVA is suspected in the deep periventricular white matter of the lef t frontal parietal lobe junction extending inferiorly along the lateral thalamus into the left vmware administrator ior limb internal capsule. Small focus of diminished attenuation in the left anterior desmond is difficult to fully characterize du e to inherent an motion limitations. Chronic ischemic pattern in the cerebral white matter could potentially mask additional areas of nonh emorrhagic CVA.
[2021-10-01] MEDS ORDERED: LIDOCAINE 4% PATCH TOP ONE (15:00)
[2021-10-01] MEDS: GABAPENTIN 100 MG CAP PO SCH (19:47)
[2021-10-01] MEDS: ATORVASTATIN 40 MG TAB PO SCH (19:47)
[2021-10-01] MEDS: AMLODIPINE 5 MG TAB PO SCH (19:48)
[2021-10-01] MEDS: DOCUSATE NA/SENNA CONC 1 TAB PO PRN (19:49)
[2021-10-02] MEDS: LIDOCAINE 4% PATCH TOP SCH (07:03)
[2021-10-02] MEDS: INSULIN -REGULAR HUMAN 50 UNIT/0.5 ML ML SQ SCH ×4 (07:30→20:58)
[2021-10-02] MEDS: VALSARTAN 80 MG TAB PO SCH (07:44)
[2021-10-02] MEDS: ENOXAPARIN 40 MG/0.4 ML SQ SCH (07:44)
[2021-10-02] MEDS: CLOPIDOGREL 75 MG TABLET PO SCH (07:44)
[2021-10-02] MEDS: THIAMINE HCL 100 MG TABLET PO SCH (07:45)
[2021-10-02] MEDS: ASPIRIN EC 81 MG TAB PO SCH (07:46)
[2021-10-02] MEDS: ENSURE HIGH PROTEIN 237 ML CAN PO SCH ×2 (07:46→20:57)
[2021-10-02] MEDS: GABAPENTIN 100 MG CAP PO SCH ×2 (07:46→20:57)
[2021-10-02] MEDS: VITAMIN B COMPLEX 1 CAP PO SCH (07:46)
[2021-10-02] MEDS: CARBIDOPA/LEVODOPA 25/100 TAB PO SCH ×3 (07:46→20:58)
[2021-10-02] MEDS: AMLODIPINE 5 MG TAB PO SCH (20:57)
[2021-10-02] MEDS: ATORVASTATIN 40 MG TAB PO SCH (20:57)
[2021-10-03] MEDS: INSULIN -REGULAR HUMAN 50 UNIT/0.5 ML ML SQ SCH ×4 (07:30→20:21)
[2021-10-03] MEDS: ENOXAPARIN 40 MG/0.4 ML SQ SCH (07:35)
[2021-10-03] MEDS: LIDOCAINE 4% PATCH TOP SCH (07:35)
[2021-10-03] MEDS: VITAMIN B COMPLEX 1 CAP PO SCH (08:20)
[2021-10-03] MEDS: CARBIDOPA/LEVODOPA 25/100 TAB PO SCH ×3 (08:21→20:21)
[2021-10-03] MEDS: VALSARTAN 80 MG TAB PO SCH (08:21)
[2021-10-03] MEDS: CLOPIDOGREL 75 MG TABLET PO SCH (08:21)
[2021-10-03] MEDS: GABAPENTIN 100 MG CAP PO SCH ×2 (08:22→20:21)
[2021-10-03] MEDS: ASPIRIN EC 81 MG TAB PO SCH (08:22)
[2021-10-03] MEDS: THIAMINE HCL 100 MG TABLET PO SCH (08:22)
[2021-10-03] MEDS: ENSURE HIGH PROTEIN 237 ML CAN PO SCH ×2 (08:23→20:22)
[2021-10-03] MEDS: ATORVASTATIN 40 MG TAB PO SCH (20:21)
[2021-10-03] MEDS: AMLODIPINE 5 MG TAB PO SCH (20:21)
[2021-10-03] MEDS: TRAMADOL HCL 50 MG TAB PO PRN (20:26)
[2021-10-04] MEDS: ENOXAPARIN 40 MG/0.4 ML SQ SCH (07:14)
[2021-10-04] MEDS: LIDOCAINE 4% PATCH TOP SCH (07:15)
[2021-10-04] MEDS: ASPIRIN EC 81 MG TAB PO SCH (07:16)
[2021-10-04] MEDS: VITAMIN B COMPLEX 1 CAP PO SCH (07:16)
[2021-10-04] MEDS: GABAPENTIN 100 MG CAP PO SCH ×2 (07:16→19:26)
[2021-10-04] MEDS: CLOPIDOGREL 75 MG TABLET PO SCH (07:16)
[2021-10-04] MEDS: INSULIN -REGULAR HUMAN 50 UNIT/0.5 ML ML SQ SCH ×4 (07:20→20:50)
[2021-10-04] MEDS: VALSARTAN 80 MG TAB PO SCH (08:23)
[2021-10-04] MEDS: ENSURE HIGH PROTEIN 237 ML CAN PO SCH ×2 (08:24→19:26)
[2021-10-04] MEDS: THIAMINE HCL 100 MG TABLET PO SCH (08:24)
[2021-10-04] MEDS: TRAMADOL HCL 50 MG TAB PO PRN ×2 (08:25→19:26)
[2021-10-04] MEDS: CARBIDOPA/LEVODOPA 25/100 TAB PO SCH ×3 (08:31→19:25)
--- NOTE | 2021-10-04 17:45 | R.PN ---
PROGRESS NOTES ENCOUNTER DATE AND TIME: 10/04/2021 17:37 (CDT) NAME MACHELLE ELAM DATE OF : 1950 DATE OF ADMISSION: 09/29/2021 19:35 (CDT) I63.81 Other cerebral infarction due to occlusion or stenosis of small arteryCHIEF COMPLAINT: Left hemispheric stroke with right sided arm and leg weakness and numbness. SUBJECTIVE: Pt denied any Shortness of Breath. Pt denied any depression. CBC with differential is normal. Glucose 118 to 154, prealbumin 14.9. Covid-19 is negative. Ambulated 250' with contact guard assistance using a left upper extremity platform walker. VITAL SIGNS Temperature: 97.5 F SBP/DBP: 161/79 Pulse: 60 Resp: 16 MEDICATION ALLERGIES: No Known Drug Allergies (NKDA) ENVIRONMENTAL ALLERGIES: - Substance Allergies None Known - Other Allergies None Known NURSING: - Shower allowing shower - Lab Results blood Sugar Check ACHS - Bladder care per protocol - Skin care per protocol PRECAUTIONS: - Fall Precaution Bed alarm TABS alarm Wheel chair alarm - DVT Risk due to restricted mobility and age - Incontinence Bowel Incontinence Bladder Incontinence - Skin Breakdown Risk due to restricted mobility due to restricted mobility and age - Pacer Precaution No forward shoulder flexion >90 degrees No weight lifting of arm on pacer side ACTIVITIES OOB only with supervision THERAPIES: - Dietary and Nutrition Adequate Nutrition. Nutritional Education. Nutritional Supplements. - Occupational Therapy Cognitive Retraining. Patient needs Occupational Therapy for a daily minimum of 1.5 hours at least 5 out of 7 days, to improve Activities of Daily Living, including: Eating, Grooming, Bathing, Dressing, Toileting, Toilet Transfers, Community Reintegration, Higher functional activities, Adaptive Equipme nt, Splinting, Household Tasks, and Other activities as determined. Visual Perceptual Training. - Speech Therapy Cognitive Training. Expressive Language Skills. Memory Strategies. Patient needs Speech Therapy for a daily minimum of 1.5 hours at least 5 out of 7 days, to improve: Swallowing, Cognition, Language Ski lls, and Compensatory Strategies. Receptive Language Skills. Speech Intelligibility Training. - Physical Therapy Patient needs Physical Therapy for a daily minimum of 1.5 hours at least 5 out of 7 days, to improve: Mobility, Strengthening, Transfers, Stretching, ROM, Endurance, Ability to manage stairs, Gait, and Balance. PHYSICAL EXAM - Gen Alert and awake Lying in bed No apparent distress Oriented to: person, time, and place - Skin No skin breakdown. Normacephalic - Eyes No abnormalities - ENMT No abnormalities - Neck No abnormalities - CVS RRR - Chest No abnormalities - Resp No wheezing - Abd Soft - GI + bowel sounds Deferred - No abnormalities - Ext No significant edema - MSK 4+/5 weakness in right upper and lower extremities - Neuro 4/5 strength right upper and lower extremities. - Psych No abnormalities ASSESSMENT: On 09/19/2021 Pt. presented to [facility] with sudden onset of right-side weakness.Pt. 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 was independent/mod-I in [place] motion, Self-Care, and Communication; and he had good Balance, Transfers Control, Sphincter Control, Endurance, and Safety Awareness.Currently, he has deficits of Locomotion, Communication, Self-Care, E ndurance, Transfers Control, Balance, and Safety Awareness.Pt. is now referred to [facility] for acute in-patient rehabilitation in order to maximize patient's functional independ ence in activities of daily living, strength, ROM, and mobility.- Rehab Goal Patient has realistic goal of being discharged at assistance level 6-Marian to reside at Home with Fam shadia/Relatives. MDM/PLAN: - Physical Therapy Gait dysfunction - to improve, our physical therapists will perform initial evaluation of pt's statu s upon admission and devise an individualized program for Gait Training, and Wheel Chair mobility Inability to transfer - to improve, our physical therapists will perform initial evaluation of pt's status upon admission and devise an individualized program for Bed mobility Need for home safety evaluation - to improve, our physical therapists will perform initial evaluatio n of pt's status upon admission and devise an individualized program for Home Evaluation Need in caregiver upon discharge - to improve, our physical therapists will perform initial evaluati on of pt's status upon admission and devise an individualized program for Caregiver Training New precaution - to improve, our physical therapists will perform initial evaluation of pt's status upon admission and devise an individualized program for Patient precaution education Edema - to improve, our physical therapists will perform initial evaluation of pt's status upon admis ev and devise an individualized program for Elevation Training, and Lymphedema Therapy Pain - to improve, our physical therapists will perform initial evaluation of pt's status upon admis ev and devise an individualized program for Modalities Poor balance - to improve, our physical therapists will perform initial evaluation of pt's status up on admission and devise an individualized program for Balance Training Poor endurance - to improve, our physical therapists will perform initial evaluation of pt's status upon admission and devise an individualized program for Endurance Training Weakness - to improve, our physical therapists will perform initial evaluation of pt's status upon a dmission and devise an individualized program for Aquatic Therapy, Neuromuscular Reeducation, and Str engthening Achieving independence - to improve, our physical therapists will perform initial evaluation of pt's status upon admission and devise an individualized program for Community Reintegration Activities - Occupational Therapy ADL deficits - to improve, our occupation therapists will perform initial evaluation of pt's status upon admission and devise an individualized program for Bathing, Bed mobility, Community Reintegratio n, Cooking, Dressing, Eating, Fine Motor Skills, Grooming, Homemaking, Kitchen Mobility, Laundry, Pat ient Education, Safety Awareness, Splinting - Positioning, Transfers(Toilet, Tub, Shower), and Wheel Chair Management Need for care taker - to improve, our occupation therapists will perform initial evaluation of pt's status upon admission and devise an individualized program for Caregiver Training Weakness - to improve, our occupation therapists will perform initial evaluation of pt's status upon admission and devise an individualized program for Aquatic Therapy, Balance, Endurance, UE ROM, and UE strengthening - Other See attached MAR (Medication Administration Record) - Diet Type Continue Regular - Diet - Liquid Texture Continue Regular - Tube Feed Continue N/A - Incontinence Bowel Incontinence Bladder Incontinence - Pacer Precaution No forward shoulder flexion >90 degrees No weight lifting of arm on pacer side - Lab Results blood Sugar Check ACHS - Bladder care per protocol - DVT Risk due to restricted mobility and age - Skin Breakdown Risk due to restricted mobility due to restricted mobility and age - Weight Bearing Precaution WBAT right LE - Fall Precaution Bed alarm TABS alarm Wheel chair alarm - Skin care per protocol - Diet - Solid Texture Continue Regular - Shower allowing shower for Dementia, TBI, Stroke, or others FUNCTIONAL STATUS: UPDATED AT WEEKLY TEAM CONFERENCE - Bladder Same accident frequency: 7-Ind - No accidents in the past 7 days - Bowel Same accident frequency: 7-Ind - No accidents in the past 7 days - Walking Same score based on distance walked: 0(N/A) - Wheelchair Same score based on distance traveled: 0(N/A) FUNCTIONAL STATUS: - Self-Care A. Eating Ind B. Grooming Ind C. Bathing Steafn D. Dressing - Upper Marian E. Dressing - Lower Marian F. Toileting sup - Sphincter Control G. Bladder control Marian H. Bowel control Marian - Transfers Control I. Bed/Chair/Wheelchair sup J. Toilet sup K. Tub/Shower Stefan - Locomotion L. Walk/Wheelchair (B) Stefan M. Stairs Stefan - Communication N. Comprehension (B) Ind O. Expression (B) Marian - Social Cognition P. Social Interaction Ind Q. Problem Solving Marian R. Memory Marian - Endurance Good - Balance Good - Safety Awareness Good QI SCORES: - Self-Care A. Eating 04-Supervision or touching assistance B. Oral hygiene 04-Supervision or touching assistance C. Toileting hygiene 03-Partial/moderate assistance E. Shower/bathe self 02-Substantial/maximal assistance F. Upper body dressing 02-Substantial/maximal assistance G. Lower body dressing 03-Partial/moderate assistance H. Putting on/taking off footwear 04-Supervision or touching assistance - Mobility A. Roll left and right 04-Supervision or touching assistance B. Sit to lying 04-Supervision or touching assistance C. Lying to sitting on side of bed 04-Supervision or touching assistance D. Sit to stand 03-Partial/moderate assistance E. Chair/[id number] transfer 04-Supervision or touching assistance F. Toilet transfer 04-Supervision or touching assistance G. Car transfer 88-Not attempted due to medical condition or safety concerns I. Walk 10 feet 04-Supervision or touching assistance J. Walk 50 feet with two turns 04-Supervision or touching assistance K. Walk 150 feet 88-Not attempted due to medical condition or safety concerns L. Walking 10 feet on uneven surfaces 88-Not attempted due to medical condition or safety concerns M. 1 step (curb) 88-Not attempted due to medical condition or safety concerns N. 4 steps 88-Not attempted due to medical condition or safety concerns O. 12 steps 88-Not attempted due to medical condition or safety concerns P. Picking up object 88-Not attempted due to medical condition or safety concerns R. Wheel 50 feet with two turns 09-Not applicable S. Wheel 150 feet 09-Not applicable - Bladder and Bowel Bladder continence 2-Incontinent less than daily Bowel continence 1-Occasionally incontinent - Endurance Fair - Balance Fair - Safety Awareness Fair CURRENT [facility] DEFICITS: Self-Care, Mobility, Endurance, Balance, and Safety Awareness SIGNATURE PANEL: (CDT)
[2021-10-04] MEDS: ATORVASTATIN 40 MG TAB PO SCH (19:26)
[2021-10-04] MEDS: AMLODIPINE 5 MG TAB PO SCH (19:26)
[2021-10-05] MEDS: LIDOCAINE 4% PATCH TOP SCH (07:14)
[2021-10-05] MEDS: ENOXAPARIN 40 MG/0.4 ML SQ SCH (07:14)
[2021-10-05] MEDS: INSULIN -REGULAR HUMAN 50 UNIT/0.5 ML ML SQ SCH ×4 (07:30→19:54)
[2021-10-05] MEDS: VALSARTAN 80 MG TAB PO SCH (08:39)
[2021-10-05] MEDS: ASPIRIN EC 81 MG TAB PO SCH (08:40)
[2021-10-05] MEDS: VITAMIN B COMPLEX 1 CAP PO SCH (08:40)
[2021-10-05] MEDS: GABAPENTIN 100 MG CAP PO SCH ×2 (08:40→19:54)
[2021-10-05] MEDS: CLOPIDOGREL 75 MG TABLET PO SCH (08:41)
[2021-10-05] MEDS: CARBIDOPA/LEVODOPA 25/100 TAB PO SCH ×3 (08:41→19:59)
[2021-10-05] MEDS: ENSURE HIGH PROTEIN 237 ML CAN PO SCH ×2 (08:43→19:54)
[2021-10-05] MEDS: THIAMINE HCL 100 MG TABLET PO SCH (08:43)
[2021-10-05] MEDS: TRAMADOL HCL 50 MG TAB PO PRN ×2 (08:45→19:56)
--- NOTE | 2021-10-05 17:17 | R.PN ---
PROGRESS NOTES ENCOUNTER DATE AND TIME: 10/05/2021 17:12 (CDT) NAME MACHELLE ELAM DATE OF : 1950 DATE OF ADMISSION: 09/29/2021 19:35 (CDT) I63.81 Other cerebral infarction due to occlusion or stenosis of small arteryCHIEF COMPLAINT: Left hemispheric stroke with right sided arm and leg weakness and numbness. SUBJECTIVE: Pt denied any Shortness of Breath. Pt denied any depression. CBC with differential is normal. Glucose 128 to 187, prealbumin 14.9. Covid-19 is negative. ADLs and therapeutic exercises done with SBA. VITAL SIGNS Temperature: 97.4 F SBP/DBP: 131/70 Pulse: 65 Resp: 16 MEDICATION ALLERGIES: No Known Drug Allergies (NKDA) ENVIRONMENTAL ALLERGIES: - Substance Allergies None Known - Other Allergies None Known NURSING: - Shower allowing shower - Lab Results blood Sugar Check ACHS - Bladder care per protocol - Skin care per protocol PRECAUTIONS: - Fall Precaution Bed alarm TABS alarm Wheel chair alarm - DVT Risk due to restricted mobility and age - Incontinence Bowel Incontinence Bladder Incontinence - Skin Breakdown Risk due to restricted mobility due to restricted mobility and age - Pacer Precaution No forward shoulder flexion >90 degrees No weight lifting of arm on pacer side ACTIVITIES OOB only with supervision THERAPIES: - Dietary and Nutrition Adequate Nutrition. Nutritional Education. Nutritional Supplements. - Occupational Therapy Cognitive Retraining. Patient needs Occupational Therapy for a daily minimum of 1.5 hours at least 5 out of 7 days, to improve Activities of Daily Living, including: Eating, Grooming, Bathing, Dressing, Toileting, Toilet Transfers, Community Reintegration, Higher functional activities, Adaptive Equipme nt, Splinting, Household Tasks, and Other activities as determined. Visual Perceptual Training. - Speech Therapy Cognitive Training. Expressive Language Skills. Memory Strategies. Patient needs Speech Therapy for a daily minimum of 1.5 hours at least 5 out of 7 days, to improve: Swallowing, Cognition, Language Ski lls, and Compensatory Strategies. Receptive Language Skills. Speech Intelligibility Training. - Physical Therapy Patient needs Physical Therapy for a daily minimum of 1.5 hours at least 5 out of 7 days, to improve: Mobility, Strengthening, Transfers, Stretching, ROM, Endurance, Ability to manage stairs, Gait, and Balance. PHYSICAL EXAM - Gen Alert and awake Lying in bed No apparent distress Oriented to: person, time, and place - Skin No skin breakdown. Normacephalic - Eyes No abnormalities - ENMT No abnormalities - Neck No abnormalities - CVS RRR - Chest No abnormalities - Resp No wheezing - Abd Soft - GI + bowel sounds Deferred - No abnormalities - Ext No significant edema - MSK 4+/5 weakness in right upper and lower extremities - Neuro 4/5 strength right upper and lower extremities. - Psych No abnormalities ASSESSMENT: On 09/19/2021 Pt. presented to [facility] with sudden onset of right-side weakness.Pt. 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 was independent/mod-I in [place] motion, Self-Care, and Communication; and he had good Balance, Transfers Control, Sphincter Control, Endurance, and Safety Awareness.Currently, he has deficits of Locomotion, Communication, Self-Care, E ndurance, Transfers Control, Balance, and Safety Awareness.Pt. is now referred to [facility] for acute in-patient rehabilitation in order to maximize patient's functional independ ence in activities of daily living, strength, ROM, and mobility.- Rehab Goal Patient has realistic goal of being discharged at assistance level 6-Marian to reside at Home with Fam shadia/Relatives. MDM/PLAN: - Physical Therapy Gait dysfunction - to improve, our physical therapists will perform initial evaluation of pt's statu s upon admission and devise an individualized program for Gait Training, and Wheel Chair mobility Inability to transfer - to improve, our physical therapists will perform initial evaluation of pt's status upon admission and devise an individualized program for Bed mobility Need for home safety evaluation - to improve, our physical therapists will perform initial evaluatio n of pt's status upon admission and devise an individualized program for Home Evaluation Need in caregiver upon discharge - to improve, our physical therapists will perform initial evaluati on of pt's status upon admission and devise an individualized program for Caregiver Training New precaution - to improve, our physical therapists will perform initial evaluation of pt's status upon admission and devise an individualized program for Patient precaution education Edema - to improve, our physical therapists will perform initial evaluation of pt's status upon admi ssion and devise an individualized program for Elevation Training, and Lymphedema Therapy Pain - to improve, our physical therapists will perform initial evaluation of pt's status upon admis ev and devise an individualized program for Modalities Poor balance - to improve, our physical therapists will perform initial evaluation of pt's status up on admission and devise an individualized program for Balance Training Poor endurance - to improve, our physical therapists will perform initial evaluation of pt's status upon admission and devise an individualized program for Endurance Training Weakness - to improve, our physical therapists will perform initial evaluation of pt's status upon a dmission and devise an individualized program for Aquatic Therapy, Neuromuscular Reeducation, and Str engthening Achieving independence - to improve, our physical therapists will perform initial evaluation of pt's status upon admission and devise an individualized program for Community Reintegration Activities - Occupational Therapy ADL deficits - to improve, our occupation therapists will perform initial evaluation of pt's status upon admission and devise an individualized program for Bathing, Bed mobility, Community Reintegratio n, Cooking, Dressing, Eating, Fine Motor Skills, Grooming, Homemaking, Kitchen Mobility, Laundry, Pat ient Education, Safety Awareness, Splinting - Positioning, Transfers(Toilet, Tub, Shower), and Wheel Chair Management Need for health care social worker - to improve, our occupation therapists will perform initial evaluation of pt's status upon admission and devise an individualized program for Caregiver Training Weakness - to improve, our occupation therapists will perform initial evaluation of pt's status upon admission and devise an individualized program for Aquatic Therapy, Balance, Endurance, UE ROM, and UE strengthening - Other See attached MAR (Medication Administration Record) - Diet Type Continue Regular - Diet - Liquid Texture Continue Regular - Tube Feed Continue N/A - Incontinence Bowel Incontinence Bladder Incontinence - Pacer Precaution No forward shoulder flexion >90 degrees No weight lifting of arm on pacer side - Lab Results blood Sugar Check ACHS - Bladder care per protocol - DVT Risk due to restricted mobility and age - Skin Breakdown Risk due to restricted mobility due to restricted mobility and age - Weight Bearing Precaution WBAT right LE - Fall Precaution Bed alarm TABS alarm Wheel chair alarm - Skin care per protocol - Diet - Solid Texture Continue Regular - Shower allowing shower for Dementia, TBI, Stroke, or others FUNCTIONAL STATUS: UPDATED AT WEEKLY TEAM CONFERENCE - Bladder Same accident frequency: 7-Ind - No accidents in the past 7 days - Bowel Same accident frequency: 7-Ind - No accidents in the past 7 days - Walking Same score based on distance walked: 0(N/A) - Wheelchair Same score based on distance traveled: 0(N/A) FUNCTIONAL STATUS: - Self-Care A. Eating Ind B. Grooming Ind C. Bathing Stefan D. Dressing - Upper Marian E. Dressing - Lower Marian F. Toileting sup - Sphincter Control G. Bladder control Marian H. Bowel control Marian - Transfers Control I. Bed/Chair/Wheelchair sup J. Toilet sup K. Tub/Shower Stefan - Locomotion L. Walk/Wheelchair (B) Stefan M. Stairs Stefan - Communication N. Comprehension (B) Ind O. Expression (B) Marian - Social Cognition P. Social Interaction Ind Q. Problem Solving Marian R. Memory Marian - Endurance Good - Balance Good - Safety Awareness Good QI SCORES: - Self-Care A. Eating 04-Supervision or touching assistance B. Oral hygiene 04-Supervision or touching assistance C. Toileting hygiene 03-Partial/moderate assistance E. Shower/bathe self 02-Substantial/maximal assistance F. Upper body dressing 02-Substantial/maximal assistance G. Lower body dressing 03-Partial/moderate assistance H. Putting on/taking off footwear 04-Supervision or touching assistance - Mobility A. Roll left and right 04-Supervision or touching assistance B. Sit to lying 04-Supervision or touching assistance C. Lying to sitting on side of bed 04-Supervision or touching assistance D. Sit to stand 03-Partial/moderate assistance E. Chair/[id number] transfer 04-Supervision or touching assistance F. Toilet transfer 04-Supervision or touching assistance G. Car transfer 88-Not attempted due to medical condition or safety concerns I. Walk 10 feet 04-Supervision or touching assistance J. Walk 50 feet with two turns 04-Supervision or touching assistance K. Walk 150 feet 88-Not attempted due to medical condition or safety concerns L. Walking 10 feet on uneven surfaces 88-Not attempted due to medical condition or safety concerns M. 1 step (curb) 88-Not attempted due to medical condition or safety concerns N. 4 steps 88-Not attempted due to medical condition or safety concerns O. 12 steps 88-Not attempted due to medical condition or safety concerns P. Picking up object 88-Not attempted due to medical condition or safety concerns R. Wheel 50 feet with two turns 09-Not applicable S. Wheel 150 feet 09-Not applicable - Bladder and Bowel Bladder continence 2-Incontinent less than daily Bowel continence 1-Occasionally incontinent - Endurance Fair - Balance Fair - Safety Awareness Fair CURRENT [facility]. DEFICITS: Self-Care, Mobility, Endurance, Balance, and Safety Awareness SIGNATURE PANEL: (CDT)
[2021-10-05] MEDS: ATORVASTATIN 40 MG TAB PO SCH (19:54)
[2021-10-05] MEDS: AMLODIPINE 5 MG TAB PO SCH (19:54)
[2021-10-06] MEDS: ENOXAPARIN 40 MG/0.4 ML SQ SCH (07:20)
[2021-10-06] MEDS: INSULIN -REGULAR HUMAN 50 UNIT/0.5 ML ML SQ SCH ×4 (07:30→21:00)
[2021-10-06] MEDS: GABAPENTIN 100 MG CAP PO SCH ×2 (07:46→21:03)
[2021-10-06] MEDS: THIAMINE HCL 100 MG TABLET PO SCH (07:46)
[2021-10-06] MEDS: CLOPIDOGREL 75 MG TABLET PO SCH (07:46)
[2021-10-06] MEDS: CARBIDOPA/LEVODOPA 25/100 TAB PO SCH ×3 (07:46→21:04)
[2021-10-06] MEDS: ASPIRIN EC 81 MG TAB PO SCH (07:46)
[2021-10-06] MEDS: VITAMIN B COMPLEX 1 CAP PO SCH (07:46)
[2021-10-06] MEDS: VALSARTAN 80 MG TAB PO SCH (07:47)
[2021-10-06] MEDS: ENSURE HIGH PROTEIN 237 ML CAN PO SCH ×2 (07:47→21:03)
[2021-10-06] MEDS: LIDOCAINE 4% PATCH TOP SCH (10:11)
--- NOTE | 2021-10-06 19:02 | R.PN ---
PROGRESS NOTES ENCOUNTER DATE AND TIME: 10/06/2021 18:59 (CDT) NAME MACHELLE ELAM DATE OF : 1950 DATE OF ADMISSION: 09/29/2021 19:35 (CDT) I63.81 Other cerebral infarction due to occlusion or stenosis of small arteryCHIEF COMPLAINT: Left hemispheric stroke with right sided arm and leg weakness and numbness. SUBJECTIVE: Pt denied any Shortness of Breath. Pt denied any depression. CBC with differential is normal. Glucose 127 to 184, prealbumin 14.9. Covid-19 is negative. ADLs and therapeutic exercises done with SBA. Ambulated 540' with a contact guard assistance and no assistive device. VITAL SIGNS Temperature: 97.6 F SBP/DBP: 143/66 Pulse: 66 Resp: 16 MEDICATION ALLERGIES: No Known Drug Allergies (NKDA) ENVIRONMENTAL ALLERGIES: - Substance Allergies None Known - Other Allergies None Known NURSING: - Shower allowing shower - Lab Results blood Sugar Check ACHS - Bladder care per protocol - Skin care per protocol PRECAUTIONS: - Fall Precaution Bed alarm TABS alarm Wheel chair alarm - DVT Risk due to restricted mobility and age - Incontinence Bowel Incontinence Bladder Incontinence - Skin Breakdown Risk due to restricted mobility due to restricted mobility and age - Pacer Precaution No forward shoulder flexion >90 degrees No weight lifting of arm on pacer side ACTIVITIES OOB only with supervision THERAPIES: - Dietary and Nutrition Adequate Nutrition. Nutritional Education. Nutritional Supplements. - Occupational Therapy Cognitive Retraining. Patient needs Occupational Therapy for a daily minimum of 1.5 hours at least 5 out of 7 days, to improve Activities of Daily Living, including: Eating, Grooming, Bathing, Dressing, Toileting, Toilet Transfers, Community Reintegration, Higher functional activities, Adaptive Equipme nt, Splinting, Household Tasks, and Other activities as determined. Visual Perceptual Training. - Speech Therapy Cognitive Training. Expressive Language Skills. Memory Strategies. Patient needs Speech Therapy for a daily minimum of 1.5 hours at least 5 out of 7 days, to improve: Swallowing, Cognition, Language Ski lls, and Compensatory Strategies. Receptive Language Skills. Speech Intelligibility Training. - Physical Therapy Patient needs Physical Therapy for a daily minimum of 1.5 hours at least 5 out of 7 days, to improve: Mobility, Strengthening, Transfers, Stretching, ROM, Endurance, Ability to manage stairs, Gait, and Balance. PHYSICAL EXAM - Gen Alert and awake Lying in bed No apparent distress Oriented to: person, time, and place - Skin No skin breakdown. Normacephalic - Eyes No abnormalities - ENMT No abnormalities - Neck No abnormalities - CVS RRR - Chest No abnormalities - Resp No wheezing - Abd Soft - GI + bowel sounds Deferred - No abnormalities - Ext No significant edema - MSK 4+/5 weakness in right upper and lower extremities - Neuro 4/5 strength right upper and lower extremities. - Psych No abnormalities ASSESSMENT: On 09/19/2021 Pt. presented to [facility] with sudden onset of right-side weakness.Pt. is a 71 yo male of unknown race.On 09/19/2021 he was admitted to 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 was independent/mod-I in [place] motion, Self-Care, and Communication; and he had good Balance, Transfers Control, Sphincter Control, Endurance, and Safety Awareness.Currently, he has deficits of Locomotion, Communication, Self-Care, E ndurance, Transfers Control, Balance, and Safety Awareness.Pt. is now referred to [facility] for acute in-patient rehabilitation in order to maximize patient's functional independ ence in activities of daily living, strength, ROM, and mobility.- Rehab Goal Patient has realistic goal of being discharged at assistance level 6-Marian to reside at Home with Fam shadia/Relatives. MDM/PLAN: - Physical Therapy Gait dysfunction - to improve, our physical therapists will perform initial evaluation of pt's statu s upon admission and devise an individualized program for Gait Training, and Wheel Chair mobility Inability to transfer - to improve, our physical therapists will perform initial evaluation of pt's status upon admission and devise an individualized program for Bed mobility Need for home safety evaluation - to improve, our physical therapists will perform initial evaluatio n of pt's status upon admission and devise an individualized program for Home Evaluation Need in caregiver upon discharge - to improve, our physical therapists will perform initial evaluati on of pt's status upon admission and devise an individualized program for Caregiver Training New precaution - to improve, our physical therapists will perform initial evaluation of pt's status upon admission and devise an individualized program for Patient precaution education Edema - to improve, our physical therapists will perform initial evaluation of pt's status upon admi ssion and devise an individualized program for Elevation Training, and Lymphedema Therapy Pain - to improve, our physical therapists will perform initial evaluation of pt's status upon admis ev and devise an individualized program for Modalities Poor balance - to improve, our physical therapists will perform initial evaluation of pt's status up on admission and devise an individualized program for Balance Training Poor endurance - to improve, our physical therapists will perform initial evaluation of pt's status upon admission and devise an individualized program for Endurance Training Weakness - to improve, our physical therapists will perform initial evaluation of pt's status upon a dmission and devise an individualized program for Aquatic Therapy, Neuromuscular Reeducation, and Str engthening Achieving independence - to improve, our physical therapists will perform initial evaluation of pt's status upon admission and devise an individualized program for Community Reintegration Activities - Occupational Therapy ADL deficits - to improve, our occupation therapists will perform initial evaluation of pt's status upon admission and devise an individualized program for Bathing, Bed mobility, Community Reintegratio n, Cooking, Dressing, Eating, Fine Motor Skills, Grooming, Homemaking, Kitchen Mobility, Laundry, Pat ient Education, Safety Awareness, Splinting - Positioning, Transfers(Toilet, Tub, Shower), and Wheel Chair Management Need for healthcare educator - to improve, our occupation therapists will perform initial evaluation of pt's status upon admission and devise an individualized program for Caregiver Training Weakness - to improve, our occupation therapists will perform initial evaluation of pt's status upon admission and devise an individualized program for Aquatic Therapy, Balance, Endurance, UE ROM, and UE strengthening - Other See attached MAR (Medication Administration Record) - Diet Type Continue Regular - Diet - Liquid Texture Continue Regular - Tube Feed Continue N/A - Incontinence Bowel Incontinence Bladder Incontinence - Pacer Precaution No forward shoulder flexion >90 degrees No weight lifting of arm on pacer side - Lab Results blood Sugar Check ACHS - Bladder care per protocol - DVT Risk due to restricted mobility and age - Skin Breakdown Risk due to restricted mobility due to restricted mobility and age - Weight Bearing Precaution WBAT right LE - Fall Precaution Bed alarm TABS alarm Wheel chair alarm - Skin care per protocol - Diet - Solid Texture Continue Regular - Shower allowing shower for Dementia, TBI, Stroke, or others FUNCTIONAL STATUS: UPDATED AT WEEKLY TEAM CONFERENCE - Bladder Same accident frequency: 7-Ind - No accidents in the past 7 days - Bowel Same accident frequency: 7-Ind - No accidents in the past 7 days - Walking Same score based on distance walked: 0(N/A) - Wheelchair Same score based on distance traveled: 0(N/A) FUNCTIONAL STATUS: - Self-Care A. Eating Ind B. Grooming Ind C. Bathing Stefan D. Dressing - Upper Marian E. Dressing - Lower Marian F. Toileting sup - Sphincter Control G. Bladder control Marian H. Bowel control Marian - Transfers Control I. Bed/Chair/Wheelchair sup J. Toilet sup K. Tub/Shower Stefan - Locomotion L. Walk/Wheelchair (B) Stefan M. Stairs Stefan - Communication N. Comprehension (B) Ind O. Expression (B) Marian - Social Cognition P. Social Interaction Ind Q. Problem Solving Marian R. Memory Marian - Endurance Good - Balance Good - Safety Awareness Good QI SCORES: - Self-Care A. Eating 04-Supervision or touching assistance B. Oral hygiene 04-Supervision or touching assistance C. Toileting hygiene 03-Partial/moderate assistance E. Shower/bathe self 02-Substantial/maximal assistance F. Upper body dressing 02-Substantial/maximal assistance G. Lower body dressing 03-Partial/moderate assistance H. Putting on/taking off footwear 04-Supervision or touching assistance - Mobility A. Roll left and right 04-Supervision or touching assistance B. Sit to lying 04-Supervision or touching assistance C. Lying to sitting on side of bed 04-Supervision or touching assistance D. Sit to stand 03-Partial/moderate assistance E. Chair/[id number] transfer 04-Supervision or touching assistance F. Toilet transfer 04-Supervision or touching assistance G. Car transfer 88-Not attempted due to medical condition or safety concerns I. Walk 10 feet 04-Supervision or touching assistance J. Walk 50 feet with two turns 04-Supervision or touching assistance K. Walk 150 feet 88-Not attempted due to medical condition or safety concerns L. Walking 10 feet on uneven surfaces 88-Not attempted due to medical condition or safety concerns M. 1 step (curb) 88-Not attempted due to medical condition or safety concerns N. 4 steps 88-Not attempted due to medical condition or safety concerns O. 12 steps 88-Not attempted due to medical condition or safety concerns P. Picking up object 88-Not attempted due to medical condition or safety concerns R. Wheel 50 feet with two turns 09-Not applicable S. Wheel 150 feet 09-Not applicable - Bladder and Bowel Bladder continence 2-Incontinent less than daily Bowel continence 1-Occasionally incontinent - Endurance Fair - Balance Fair - Safety Awareness Fair CURRENT [facility]. DEFICITS: Self-Care, Mobility, Endurance, Balance, and Safety Awareness SIGNATURE PANEL: (CDT)
[2021-10-06] MEDS: ATORVASTATIN 40 MG TAB PO SCH (21:03)
[2021-10-06] MEDS: AMLODIPINE 5 MG TAB PO SCH (21:04)
[2021-10-06] MEDS: DOCUSATE NA/SENNA CONC 1 TAB PO PRN (21:05)
[2021-10-07] MEDS: TRAMADOL HCL 50 MG TAB PO PRN ×2 (01:41→08:18)
--- OUTSIDE RECORDS SUMMARY | 2021-10-07 04:23 | XMS REPORT | Continuity of Care Document ---
:[address] [facility] t Address [address] [place] [address] [address]. [address]. [address] [place] [address] Care Team Providers Name Role Phone NATALY BANSAL Primary Care Physician Unavailable ANTONIO BRAGG Attending Clinician Unavailable LAINE Attending Clinician Unavailable MD CAMACHO KOROMA Attending Clinician Unavailable Desi GONZALEZ, C. Attending Clinician Belem ELLIOTT Attending Clinician Doctor Unassigned, Name Attending Clinician Unavailable Singer ALLEN Attending Clinician Dianna GONZALEZ Attending Clinician Attending Clinician Unavailable Ciro GONZALEZ, P. Attending Clinician YEMI Attending Clinician Unavailable STEFANO Attending Clinician Unavailable GISELA Attending Clinician Unavailable ANTONIO BRAGG Admitting Clinician Unavailable GA Admitting Clinician Unavailable Dianna GONZALEZ Admitting Clinician NATALY BANSAL Admitting Clinician Unavailable Payers Payer Name Policy Type Policy Number Effective Date Expiration Date S oursidney [employer] PPO OPEN [facility] [id number] NAP Problems Condition Condition Condition Status Onset Resolution Last Treating Co mments Source Name Details Category Date Date Treatment Clinician Date Dyslipidem Dyslipidem Disease Active 2020-0 U nivers ia ia 3-21 ity of 00:00: [place] 00 Medical Branch Orthostati Orthostati Disease Active 2020-0 U nivers c c 3-21 [place] of dizziness [place] Coronary Coronary Disease Active Unive rs artery artery 3-21 ity of disease disease 00:00: [place] involving involving 00 Medi tony coronary coronary Branch bypass bypass graft of graft of [place] heart heart without without angina angina pectoris pectoris Essential Essential Disease Active Uni vers hypertensi hypertensi 3-21 it y of on on 00:00: [place] [facility] COVID-19 COVID-19 Disease Active Unive rs 3-20 ity of 00:00: [place] 00 Medical Branch 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 0-07 st 00:00: Hospita 00 l 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) 00:00: [facility] 00 l Other Other Disease Active 2019-03 Methodi insomnia insomnia 0-07 st 00:00: Hospita 00 l Cervical Cervical Disease [facility] 00[facility] Medica l 00 Center Parkinson' Parkinson' Disease Active M ethodi s disease s disease 5-01 st 00:00: Hospita 00 l Malignant Malignant Disease Active Met hodi neoplasm neoplasm 9-13 st metastatic metastatic 00:00: Ho spita 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 00 l Chronic Chronic Disease Active Methodi midline midline 9-04 st thoracic thoracic 00:00: Hospit a back pain back pain 00 l Allergies, Adverse Reactions, Alerts Allergy Allergy Status Severity Reaction(s) Onset Inactive Treating Comm ents Source Name Type Date Date Clinician NO KNOWN Drug Active Univers ALLERGIE Class ity of [facility] NO KNOWN Allergy Active [facility] St ALLERGIE [facility] Social History Social Habit Start Date Stop Date Quantity Comments Source Exposure to Not sure [facility]-CoV-2 [facility] (event) Branch History SDOH [facility] Alcohol Comment Medical C enter History of Snuff User [facility] tobacco use Medical Cente r History SDOH [facility] Alcohol Std Medical Cente r Drinks History SDOH [facility] Alcohol Binge Medical Kriss[address] ter Alcohol intake 2019-11-05 2019-11-[address] [facility] 00:00:00 00:00:00 non-drinker of Medical Ce nter alcohol (finding) Tobacco use and 2019-10-25 2019-10-25 Current user GIULIA Mcleod exposure 00:00:00 00:00:00 Medical Center History SDOH 2019-10-25 2019-10-25 1 GIULIA Mcleod Alcohol Frequency 00:00:00 00:00:00 Medical Center Sex [birth year] At [birth year] GIULIA Carlos 00:00:00 00:00:00 Medical Center Smoking Status Start Date Stop Date Source Never smoker [facility] 2018-11-21 00:00:00 2018-11-21 00:00:00 [facility] Medications Ordered Filled Start Stop Current Ordering Indication Dosage Frequency Signature Comments Components Source Medication Medication Date Date Medication? Clinician (SIG) Name Name carbidopa-l 2020-03 Yes TAKE 3 Meth valencia evodopa 2-[address] (SINEMET) 00:00: MOUTH Hospita 25-100 mg 00 THREE l per tablet TIMES DAILY carbidopa-l 2020-03 Yes TAKE 3 Meth valencia evodopa 2-[address] (SINEMET) 00:00: MOUTH Hospita 25-100 mg 00 THREE l per tablet TIMES DAILY carbidopa-l 2020- No TAKE 3 Met hodi evodopa 5-03 12-[address] (SINEMET) 00:00: 00:00 MOUTH Hospit a 25-100 mg 00 :00 THREE l per tablet TIMES DAILY carbidopa-l 2020-2020- No TAKE 3 Met hodi evodopa 5-03 12-[address] (SINEMET) 00:00: 00:00 MOUTH Hospit a 25-100 mg 00 :00 THREE l per tablet TIMES DAILY simvastatin Yes 40mg 40 mg, Univ ers (ZOCOR) 3-21 Oral, QHS, ity of tablet 40 02:00: [place] mg 00 on [facility] 06/06/20 at Branch 2100, Until Discontinu ed, Routine isosorbide Yes 30mg Take 30 mg U nivers mononitrate 3-20 by mouth. ity of 30 mg 24 hr 19:26: [address] simvastatin Yes Take by Un everette 80 mg 3-20 mouth at ity of tablet 19:26: bedtime. [place] 49 Medical Branch carbidopa-l 0 Yes 3{tbl} Take 3 Un everette evodopa 3-20 tablets by ity of 25-100 mg 19:26: mouth 3 [place] tablet 49 (three) Medical times Branch daily. predniSONE 0 Yes 50mg Take 50 mg U nivers 50 mg 3-20 by mouth ity of tablet 19:26: daily. [address] Branch vilazodone 0 Yes Take by Uni vers (VIIBRYD) 3-20 mouth. ity of 10 mg Tab 19:26: [address] Branch eszopiclone 0 Yes 3mg Take 3 mg U nivers 3 mg tablet 3-20 by mouth ity of 19:26: at [place] [address] bedtime. Medical Branch melatonin 0 Yes Take by Univ ers 10 mg Tab 3-20 mouth. ity of 19:26: [address] Branch empaglifloz Yes 1{tbl} Take 1 Un everette in-linaglip 3-20 tablet by ity of tin 19:26: mouth [place] (GLYXAMBI) daily. Medical 25-5 mg Tab Branch clopidogreL 0 Yes 75mg Take 75 mg Univers 75 mg 3-20 by mouth ity of tablet 19:26: daily. [address] Branch gabapentin 0 Yes 300mg Take 300 Un everette 300 mg 3-20 mg by ity of capsule 19:26: mouth 3 [place] [address] (three) Medical times Branch daily. isosorbide 0 Yes 30mg Take 30 mg U nivers mononitrate 3-20 by mouth. ity of 30 mg 24 hr 19:26: [place] [address] Medical Branch simvastatin 0 Yes Take by Un everette 80 mg 3-20 mouth at ity of tablet 19:26: bedtime. [place] [address] Medical Branch carbidopa-l 0 Yes 3{tbl} Take 3 Un everette evodopa 3-20 tablets by ity of 25-100 mg 19:26: mouth 3 [place] tablet 49 (three) Medical times Branch daily. predniSONE 0 Yes 50mg Take 50 mg U nivers 50 mg 3-20 by mouth ity of tablet 19:26: daily. [address] Branch vilazodone 0 Yes Take by Uni vers (VIIBRYD) 3-20 mouth. ity of 10 mg Tab 19:26: [place] [address] Medical Branch eszopiclone Yes 3mg Take 3 mg U nivers 3 mg tablet 3-20 by mouth ity of 19:26: at [place] [address] bedtime. Medical Branch melatonin Yes Take by Univ ers 10 mg Tab 3-20 mouth. ity of 19:26: [place] [address] Medical Branch empaglifloz Yes 1{tbl} Take 1 Un everette in-linaglip 3-20 tablet by ity of tin 19:26: mouth [place] (GLYXAMBI) 49 daily. Medical 25-5 mg Tab Branch clopidogreL 0 Yes 75mg Take 75 mg Univers 75 mg 3-20 by mouth ity of tablet 19:26: daily. [place] [address] Medical Branch gabapentin Yes 300mg Take 300 Un everette 300 mg 3-20 mg by ity of capsule 19:26: mouth 3 [place] [address] (three) Medical times Branch daily. isosorbide Yes 30mg Take 30 mg U nivers mononitrate 3-20 by mouth. ity of 30 mg 24 hr 19:26: [place] [address] Medical Branch simvastatin Yes Take by Un everette 80 mg 3-20 mouth at ity of tablet 19:26: bedtime. [place] [address] Medical Branch carbidopa-l Yes 3{tbl} Take 3 Un everette evodopa 3-20 tablets by ity of 25-100 mg 19:26: mouth 3 [place] tablet 49 (three) Medical times Branch daily. predniSONE Yes 50mg Take 50 mg U nivers 50 mg 3-20 by mouth ity of tablet 19:26: daily. [place] [address] Medical Branch vilazodone Yes Take by Uni vers (VIIBRYD) 3-20 mouth. ity of 10 mg Tab 19:26: [place] [address] Medical Branch eszopiclone Yes 3mg Take 3 mg U nivers 3 mg tablet 3-20 by mouth ity of 19:26: at [place] [address] bedtime. Medical Branch melatonin Yes Take by Univ ers 10 mg Tab 3-20 mouth. ity of 19:26: [place] [address] Medical Branch empaglifloz 2021-0 Yes 1{tbl} Take 1 Un everette in-linaglip 3-20 tablet by ity of tin 19:26: mouth [place] (GLYXAMBI) 49 daily. Medical 25-5 mg Tab Branch clopidogreL 0 Yes 75mg Take 75 mg Univers 75 mg 3-20 by mouth ity of tablet 19:26: daily. [place] [address] Medical Branch gabapentin 0 Yes 300mg Take 300 Un everette 300 mg 3-20 mg by ity of capsule 19:26: mouth 3 [place] [address] (three) Medical times Branch daily. isosorbide 0 Yes 30mg Take 30 mg U nivers mononitrate 3-20 by mouth. ity of 30 mg 24 hr 19:26: [place] [address] Medical Branch simvastatin 0 Yes Take by Un everette 80 mg 3-20 mouth at ity of tablet 19:26: bedtime. [place] [address] Medical Branch carbidopa-l Yes 3{tbl} Take 3 Un [place] evodopa 3-20 tablets by ity of 25-100 mg 19:26: mouth 3 [place] tablet (three) Medical times Branch daily. predniSONE 0 Yes 50mg Take 50 mg U nivers 50 mg 3-20 by mouth ity of tablet 19:26: daily. [place] [address] Medical Branch vilazodone 0 Yes Take by Uni vers (VIIBRYD) 3-20 mouth. ity of 10 mg Tab 19:26: [place] [address] Medical Branch eszopiclone 0 Yes 3mg Take 3 mg U nivers 3 mg tablet 3-20 by mouth ity of 19:26: at [place] [address] bedtime. Medical Branch melatonin Yes Take by Univ ers 10 mg Tab 3-20 mouth. ity of 19:26: [place] [address] Medical Branch empaglifloz Yes 1{tbl} Take 1 Un everette in-linaglip 3-20 tablet by ity of tin 19:26: mouth [place] (GLYXAMBI) 49 daily. Medical 25-5 mg Tab Branch clopidogreL 0 Yes 75mg Take 75 mg Univers 75 mg 3-20 by mouth ity of tablet 19:26: daily. [place] [address] Medical Branch gabapentin 0 Yes 300mg Take 300 Un everette 300 mg 3-20 mg by ity of capsule 19:26: mouth 3 [place] 49 (three) Medical times Branch daily. olmesartan 2020- No 20mg Take 20 mg Univers 20 mg 06-06 03-20 by mouth. ity of tablet 17:28: 00:00 [place] 53 :00 Medical Branch predniSONE 0 Yes 50mg 50 mg, Unive rs (DELTASONE) 3-20 Oral, ity of tablet 50 14:00: DAILY, [place] mg 00 First dose Medical on [place] Branch 06/06/20 at 0900, Until Discontinu ed, Routine isosorbide 0 Yes 30mg 30 mg, Unive rs mononitrate 3-20 Oral, ity of (IMDUR) 24 14:00: DAILY, [place] hr tablet 00 First dose Medi toyn 30 mg on [facility] 06/06/20 at 0900, Until Discontinu ed, Routine clopidogreL Yes 75mg 75 mg, Univ ers (PLAVIX) 3-20 Oral, ity of tablet 75 14:00: DAILY, [place] mg 00 First dose Medical on [facility] 06/06/20 at 0900, Until Discontinu ed, Routine ergocalcife 0 Yes [id number] 50,000 Un everette rol 3-20 Units, ity of (vitamin 14:00: Oral, [place] d2) 00 QWEEKLY, Medical (CALCIFEROL First dose Br anch ) capsule on [place] 50,000 06/06/20 at Units 0900, Until Discontinu ed, Routine carbidopa-l 2020-0 Yes 2{tbl} 2 tablet, Univers evodopa 3-20 Oral, TID, ity of (SINEMET-25 13:00: First dose [place] /100) 00 on [facility] 25-100 mg 06/06/20 at Bran ch tablet 2 0800, tablet Until Discontinu ed, Routine gabapentin 2020-0 Yes 300mg 300 mg, Uni vers (NEURONTIN) 3-20 Oral, TID, it y of capsule 300 13:00: First dose [place] mg 00 on [place] Medical 06/06/20 at Branch 0800, Until Discontinu ed, Routine zinc 2020-0 Yes 220mg 220 mg, Univers sulfate 3-20 Oral, TID, ity of (ORAZINC) 13:00: First dose [place] capsule 220 00 on [place] Medica l mg 06/06/20 at Branch 0800, Until Discontinu ed, Routine ascorbic 2020-0 Yes 500mg 500 mg, Unive rs acid 3-20 Oral, BID, ity of (vitamin C) 13:00: First dose [place] (VITAMIN C) 00 on Sat Medica l tablet 500 06/06/20 at [facility] mg 0800, Until Discontinu ed, Routine Sliding 2020-0 Yes Subcutaneo Univ ers Scale 3-20 us, AC, ity of Insulin-Reg 12:30: First dose [place] ular + Fsbg 00 on Sat Medica l Testing 06/06/20 at Branch 0730, Until Discontinu ed, Routine melatonin 2020-0 Yes 9mg 9 mg, Univers (MELATIN) 3-20 Oral, ity of tablet 9 mg 11:42: QHSPRN, [place] as 56 Starting Medical Sat Branch 06/06/20 at 0642, Until Discontinu ed, Insomnia heparin Yes 5000U 5,000 Univers (porcine) 3-20 Units, ity of injection 11:00: Subcutaneo [place] 5,000 Units 00 us, Q8H, Medi [facility] First dose Branch on 06/06/20 at 0600, Until Discontinu ed, Routine NaCl 0.9% 2020- No 1000mL at 125 Uni vers (NS) IV 3-20 03-20 mL/hr, IV ity of infusion 10:15: 11:09 Infusion, [place] as 1,000 mL 00 :00 ONCE, 1 Medical dose, Sat Branch 06/06/20 at 0515, Routine glucagon Yes 1mg 1 mg, Univers (GLUCAGEN 3-20 Intramuscu ity of DIAGNOSTIC 09:08: lar, PRN, [place] KIT) 47 Starting Medical injection 1 Sat Branch mg 06/06/20 at 0408, Until Discontinu ed, ANITA, Blood Glucose < or = 70 mg/dL and patient is unable to swallow or has mental changes. dextrose 50 0 Yes 25mL 25 mL, Univ ers % in water 3-20 Slow IV ity of (D50W) 09:08: Push, PRN, [place] injection 47 Starting Medica l 25 mL Sat Branch 06/06/20 at 0408, Until Discontinu ed, ANITA, Blood Glucose < or = 70 mg/dL and patient is unable to swallow or has mental status changes. ondansetron Yes 4mg 4 mg, Slow Univers (ZOFRAN 3-20 IV Push, ity of (PF)) 09:08: Q6HPRN, [place] injection 4 00 Starting Medi tony mg Sat Branch 06/06/20 at 0408, Until Discontinu ed, Routine, Nausea and Vomiting (N/V) traMADoL 0 2020- No 50mg 50 mg, Univer s (ULTRAM) 06-06 03-22 Oral, ity of tablet 50 09:07: 09:06 Q8HPRN, [place] mg 55 :55 Starting Medical Sat Branch 06/06/20 at 0407, Until 06/08/20 at 0406, Routine, Pain (scale 4-6) acetaminoph Yes 650mg 650 mg, Un everette en 3-20 Oral, ity of (TYLENOL) 09:07: Q6HPRN, [place] tablet 650 53 Starting Medic al mg Sat Branch 06/06/20 at 0407, Until Discontinu ed, Routine, Pain (scale 1-3) NaCl 0.9% 2020- No 1000mL at 999 Uni vers (NS) bolus 06-06 03-20 mL/hr, ity of infusion 05:30: 05:11 1,000 mL, [place] as 1,000 mL 00 :00 IV Medical Piggyback, Branch ONCE, 1 dose, [place] 06/06/20 at 0030, STAT ascorbic 0 Yes [id number] 500mg Take 1 U nivers acid, 3-20 tablet by ity of vitamin C, 00:00: mouth 2 [place] 500 mg 00 (two) Medical tablet times Branch daily. Cholecalcif Yes [id number] 1000U Take 1 Univers arjun, 3-20 capsule by ity of Vitamin D3, 00:00: mouth [place] 25 mcg 00 daily. Medical (1,000 Branch unit) capsule zinc 0 Yes [id number] 220mg Take 1 Unive rs sulfate 220 3-20 capsule by it y of (50) mg 00:00: mouth 3 [place] capsule 00 (three) Medical times Branch daily. ascorbic 2020-0 Yes [id number] 500mg Take 1 U nivers acid, 3-20 tablet by ity of vitamin C, 00:00: mouth 2 [place] 500 mg 00 (two) Medical tablet times Branch daily. Cholecalcif 2020-0 Yes [id number] 1000U Take 1 Univers arjun, 3-20 capsule by ity of Vitamin D3, 00:00: mouth [place] 25 mcg 00 daily. Medical (1,000 Branch unit) capsule zinc 2020-0 Yes [id number] 220mg Take 1 Unive rs sulfate 220 3-20 capsule by it y of (50) mg 00:00: mouth 3 [place] capsule 00 (three) Medical times Branch daily. ascorbic 2020-0 Yes [id number] 500mg Take 1 U nivers acid, 3-20 tablet by ity of vitamin C, 00:00: mouth 2 [place] 500 mg 00 (two) Medical tablet times Branch daily. Cholecalcif 2020-0 Yes [id number] 1000U Take 1 Univers arjun, 3-20 capsule by ity of Vitamin D3, 00:00: mouth [place] 25 mcg 00 daily. Medical (1,000 Branch unit) capsule zinc 2020-0 Yes [id number] 220mg Take 1 Unive rs sulfate 220 3-20 capsule by it y of (50) mg 00:00: mouth 3 [place] capsule 00 (three) Medical times Branch daily. ascorbic 2020-0 Yes [id number] 500mg Take 1 U nivers acid, 3-20 tablet by ity of vitamin C, 00:00: mouth 2 [place] 500 mg 00 (two) Medical tablet times Branch daily. Cholecalcif 2020-0 Yes [id number] 1000U Take 1 Univers arjun, 3-20 capsule by ity of Vitamin D3, 00:00: mouth [place] 25 mcg 00 daily. Medical (1,000 Branch unit) capsule zinc 2020-0 Yes [id number] 220mg Take 1 Unive rs sulfate 220 3-20 capsule by it y of (50) mg 00:00: mouth 3 [place] capsule 00 (three) Medical times Branch daily. acetaminoph 2020-0 2- No [id number] 650mg Take 2 Univers en 325 mg 3-20 03-21 tablets by ity of tablet 00:00: 04:59 mouth [place] 00 :00 every 6 Medical (six) Branch hours as needed for Pain (scale 1-3) or Temp > 38.5 C. acetaminoph 2021- No [id number] 650mg Take 2 Univers en 325 mg 3-20 -21 tablets by ity of tablet 00:00: 04:59 mouth [place] 00 :00 every 6 Medical (six) Branch hours as needed for Pain (scale 1-3) or Temp > 38.5 C. acetaminoph 2021- No [id number] 650mg Take 2 Univers en 325 mg 3-20 -21 tablets by ity of tablet 00:00: 04:59 mouth [place] 00 :00 every 6 Medical (six) Branch hours as needed for Pain (scale 1-3) or Temp > 38.5 C. acetaminoph 2021- No [id number] 650mg Take 2 Univers en 325 mg 3-20 -21 tablets by ity of tablet 00:00: 04:59 mouth [place] 00 :00 every 6 Medical (six) Branch hours as needed for Pain (scale 1-3) or Temp > 38.5 C. ondansetron 2019-03 Yes Take by Met morales (REBECCA) 8 2-[address] MG tablet 13:55: Hospita 46 l ondansetron 2019-03 Yes Take by Met morales (REBECCA) 8 2-[address] MG tablet 13:55: Hospita 46 l Ozempic 2019-03 Yes INJECT Methodi 0.25 mg or 2-[address] 0.5 mg(2 00:00: UNDER THE Hosp [place] mg/1.5 mL) 00 SKIN EVERY l pen WEEK FOR 4 injector WEEKS THEN 0.5MG EVERY WEEK FOR 4 WEEKS Ozempic 2019-03 Yes INJECT Methodi 0.25 mg or 2-[address] 0.5 mg(2 00:00: UNDER THE [facility]osp [place] mg/1.5 mL) 00 SKIN EVERY l pen WEEK FOR 4 injector WEEKS THEN 0.5MG EVERY WEEK FOR 4 WEEKS citalopram 2019-03 Yes 20mg QD Take 20 mg M ethodi (CeleXA) 20 0-[address] MG tablet 10:33: every Hospita 46 morning. l citalopram 2019-03 Yes 20mg QD Take 20 mg M ethodi (CeleXA) 20 0-[address] MG tablet 10:33: every Hospita 46 morning. l buPROPion 2019-03 Yes 300mg QD Take 300 Met hodi XL 0-[address] (WELLBUTRIN 10:22: mouth Hospi ta XL) 300 MG 20 every l 24 hr morning. tablet clopidogrel 2019-03 Yes 75mg QD Take 75 mg Methodi (PLAVIX) 75 0-[address] mg tablet 10:22: daily. Hospit a 20 l eszopiclone 2019-03 Yes 3mg QD Take 3 mg M ethodi (LUNESTA) 3 0-[address] mg tablet 10:22: nightly. [facility]osp [place] 20 Take l immediatel y before bedtime gabapentin 2019-03 Yes 300mg Q.5D Take 300 Me thodi (NEURONTIN) 0-[address] 300 mg 10:22: mouth 2 Hospita capsule 20 (two) l times a day. One tab in AM. isosorbide 2019-03 Yes 30mg QD Take 30 mg M ethodi mononitrate 0-[address] (IMDUR) 30 10:22: daily. Hospi ta MG 24 hr 20 l tablet traMADol 2019-03 Yes [id number] 50mg Q6H Take 50 mg Me thodi (ULTRAM) 50 0-[address] mg tablet 10:22: every 6 Hospi ta 20 (six) l hours as needed for moderate pain .Acute Pain. leuprolide 2019-03 Yes Lupron Metho di (LUPRON 0-[address] DEPOT, 3 10:22: 11.25 mg Hospi ta MONTH,) 20 (3 month) l 11.25 mg intramuscu injection lar syringe kit ONCE A MONTH buPROPion 2019-03 Yes 300mg QD Take 300 Met hodi XL 0-[address] (WELLBUTRIN 10:22: mouth Hospi ta XL) 300 MG 20 every l 24 hr morning. tablet clopidogrel 2019-03 Yes 75mg QD Take 75 mg Methodi (PLAVIX) 75 0-[address] mg tablet 10:22: daily. Hospit a 20 l eszopiclone 2019-03 Yes 3mg QD Take 3 mg M ethodi (LUNESTA) 3 0-[address] mg tablet 10:22: nightly. [facility] [place] 20 Take l immediatel y before bedtime gabapentin 2019-03 Yes 300mg Q.5D Take 300 Me thodi (NEURONTIN) 0-[address] 300 mg 10:22: mouth 2 Hospita capsule 20 (two) l times a day. One tab in AM. isosorbide 2019-03 Yes 30mg QD Take 30 mg M ethodi mononitrate 0-[address] (IMDUR) 30 10:22: daily. Hospi ta MG 24 hr 20 l tablet traMADol 2019-03 Yes [id number] 50mg Q6H Take 50 mg Me thodi (ULTRAM) 50 0-[address] mg tablet 10:22: every 6 Hospi ta 20 (six) l hours as needed for moderate pain .Acute Pain. leuprolide 2019-03 Yes Lupron Metho di (LUPRON 0-[address] DEPOT, 3 10:22: 11.25 mg Hospi ta MONTH,) 20 (3 month) l 11.25 mg intramuscu injection lar syringe kit ONCE A MONTH gabapentin 2019-03 Yes 600mg QD Take 600 Me thodi (NEURONTIN) 0-[address] 600 mg 10:22: mouth Hospita tablet 19 nightly. l gabapentin 2019-03 Yes 600mg QD Take 600 Me thodi (NEURONTIN) 0-[address] 600 mg 10:22: mouth Hospita tablet 19 nightly. l buPROPion Yes 300mg QD Take [address] (WELLBUTRIN 8-19 mg by [facility] XL) 300 MG 16:16: mouth Medica l 24 hr 27 daily. Center tablet isosorbide 0 Yes 30mg Take [address] dinitrate 8-19 by mouth [facility] (ISORDIL) 16:16: once. Medical 30 MG 27 Center tablet olmesartan 2019-0 Yes 20mg QD Take [address] (BENICAR) 8-19 by mouth [facility] 20 MG 16:16: daily. Medical tablet 27 Center citalopram 2020-0 Yes 20mg QD Take [address] (CELEXA) 20 8-19 by mouth Luke s MG tablet 16:16: daily. Medica l 27 Center clopidogreL 2020-0 Yes 75mg QD Take [address] (PLAVIX) 75 8-19 by mouth Luke s mg tablet 16:16: daily. Medica l 27 Center empaglifloz 2020-0 Yes 1{tbl} QD Take [address] in-linaglip 8-19 tablet by Mathew es tin 16:16: mouth Medical (GLYXAMBI) 27 daily. Center 10-5 mg per tablet simvastatin 2020-0 Yes 80mg QD Take [address] (ZOCOR) 80 8-19 by mouth [facility]ukes MG tablet 16:16: nightly. Medi tony 27 Center gabapentin 2020-0 Yes 300mg Q.[id number] Take [address] (NEURONTIN) 8-19 [id number] mg by L ukes 300 MG 16:16: 3D mouth 3 Medical capsule 27 (three) Center times daily. eszopiclone 2020-0 Yes 3mg Take [address] 3 mg tablet 8-19 by mouth Luke s 16:16: every Medical 27 night as Center needed Take immediatel y before bedtime . predniSONE 2020-0 Yes 5mg Q.5D Take [address] (DELTASONE) 8-19 by mouth 2 Ashlie kes 5 MG tablet 16:16: (two) Medic al 27 times Center daily. ondansetron 2020-0 Yes Take by [facility] (ZOFRAN) 8 8-19 mouth [facility] MG tablet 16:16: every 8 Medic al 27 (eight) Center hours as needed for Nausea. carbidopa-l 2020-0 Yes 1{tbl} Q.5D Take [address] evodopa 8-19 tablet by [facility]ukes (SINEMET 16:16: mouth 2 Medica l CR) 25-100 27 (two) Center mg per times tablet daily. mecobal/lev 2020-0 Yes Take by [facility] omefolat 8-19 mouth. [facility] Ca/B6 phos 16:16: Medical (METANX 27 Center ORAL) abiraterone 2020-0 Yes 1000mg QD Take 1,[address] 250 mg Tab 8-19 mg by [facility] 16:16: mouth Medical 27 daily. Center buPROPion 2020-0 Yes 300mg QD Take [address] (WELLBUTRIN 8-19 mg by [facility] XL) 300 MG 16:16: mouth Medica l 24 hr 27 daily. Center tablet isosorbide 2020-0 Yes 30mg Take [address] dinitrate 8-19 by mouth [facility] (ISORDIL) 16:16: once. Medical 30 MG 27 Center tablet olmesartan 2020-0 Yes 20mg QD Take [address] (BENICAR) 8-19 by mouth [facility] 20 MG 16:16: daily. Medical tablet 27 Center citalopram 2020-0 Yes 20mg QD Take [address] (CELEXA) 20 8-19 by mouth Luke s MG tablet 16:16: daily. Medica l 27 Center clopidogreL 2020-0 Yes 75mg QD Take [address] (PLAVIX) 75 8-19 by mouth Luke s mg tablet 16:16: daily. Medica l 27 Center empaglifloz 2020-0 Yes 1{tbl} QD Take [address] in-linaglip 8-19 tablet by Mathew es tin 16:16: mouth Medical (GLYXAMBI) 27 daily. Center 10-5 mg per tablet simvastatin 2020-0 Yes 80mg QD Take [address] (ZOCOR) 80 8-19 by mouth [facility] MG tablet 16:16: nightly. Medi tony 27 Center gabapentin 2020-0 Yes 300mg Q.[id number] Take [address] (NEURONTIN) 8-19 [id number] mg by L ukes 300 MG 16:16: 3D mouth 3 Medical capsule 27 (three) Center times daily. eszopiclone 2020-0 Yes 3mg Take [address] 3 mg tablet 8-19 by mouth Luke s 16:16: every Medical 27 night as Center needed Take immediatel y before bedtime . predniSONE 2020-0 Yes 5mg Q.5D Take [address] (DELTASONE) 8-19 by mouth 2 Ashlie kes 5 MG tablet 16:16: (two) Medic al 27 times Center daily. ondansetron 2020-0 Yes Take by [facility] (ZOFRAN) 8 8-19 mouth [facility] MG tablet 16:16: every 8 Medic al 27 (eight) Center hours as needed for Nausea. carbidopa-l 2020-0 Yes 1{tbl} Q.5D Take [address] evodopa 8-19 tablet by [facility] (SINEMET 16:16: mouth 2 Medica l CR) 25-100 27 (two) Center mg per times tablet daily. mecobal/lev 2020-0 Yes Take by [facility] omefolat 8-19 mouth. [facility]/B6 phos 16:16: Medical (METANX 27 Center ORAL) abiraterone 2020-0 Yes 1000mg QD Take 1,[address] 250 mg Tab 8-19 mg by [facility] 16:16: mouth Medical 27 daily. [facility] carbidopa-l 2020- No 3{tbl} Q.[id number] Take 3 [facility] evodopa 6- 05-[id number] (Sinemet) 00:00: 00:00 3D mouth 3 [facility]100 mg 00 :00 (three) l per tablet times a day. carbidopa-l 2020- No 3{tbl} Q.[id number] Take 3 [facility] evodopa 6 05-[id number] (Sinemet) 00:00: 00:00 3D mouth 3 [facility] 25-100 mg 00 :00 (three) l per tablet times a day. olmesartan 2020-0 Yes [facility] (BENICAR) 3-25 st 20 MG 00:00: Hospita tablet 00 l olmesartan 2020-0 Yes [facility] (BENICAR) 3-25 [facility] 20 MG 00:00: Hospita tablet 00 l predniSONE 2019-1 Yes 1 tab in [facility] (DELTASONE) 1-21 AM, [address] 5 mg tablet 00:00: in PM Hospi ta 00 l predniSONE 2019-1 Yes 1 tab in [facility] (DELTASONE) 1-21 AM, [address] 5 mg tablet 00:00: in PM Hospi ta 00 l Immunizations Ordered Immunization Filled Immunization Date Status Commen ts Source Name Name PFIZER COVID-19 MRNA 2020-05-17 Completed [facility]ACC[facility]ATION 00:00:00 Hospital PFIZER COVID-19 MRNA 2020-05-17 Completed [facility] VACC[facility]ATION 00:00:00 Hospital PFIZER COVID-19 MRNA 2020-04-26 Completed [facility] VACCINATION 00:00:00 Hospital PFIZER COVID-19 MRNA 2020-04-26 Completed [facility] VACCINATION 00:00:00 Hospital Vital Signs Vital Name Observation Time Observation Value Comments Source HEIGHT 2019-10-21 00:00:00 177.8 cm WEIGHT 2019-10-21 00:00:00 120.203 kg Systolic blood 2020-06-06 18:01:00 116 mm[Hg] [facility] [place], operated [facility] Diastolic blood 2020-06-06 18:01:00 78 mm[Hg] [facility] Heart rate 2020-06-06 18:01:00 88 /min [facility] Respiratory rate 2020-06-06 17:57:00 18 /min [facility] Oxygen saturation in 2020-06-06 16:50:00 95 /min [facility] Arterial blood by [facility] Pulse oximetry [place] Body temperature 2020-06-06 16:34:00 37.06 Elizabet [facility] Body height 2020-06-06 09:17:00 177.8 cm [facility] Body weight 2020-06-06 09:17:00 108.5 kg [facility] BMI 2020-06-06 09:17:00 34.32 kg/m2 [facility] HEIGHT 2019-10-21 00:00:00 177.8 cm WEIGHT 2019-10-21 00:00:00 120.203 kg Procedures Procedure Date / Time Performing Clinician Source Performed AUTHORIZATION FOR 2020-06-09 05:01:00 Doctor Unassigned, No [facility] RELEASE OF PHI Name [facility] TROPONIN I 2020-06-06 15:54:00 Arielle Murillo [facility] LIPID PANEL 2020-06-06 15:54:00 Arielle Murillo [facility] ([id number])(TOTAL [facility] Branch CHOLESTEROL, TRIGLYCERIDES, HDL) N-TERMINAL PRO-BNP 2020-06-06 15:54:00 Arielle Murillo [facility] COVID-19 (MOLECULAR 2020-06-06 08:46:00 Wilfredo Barr [facility] TESTING [facility] NUCLEIC ACID AMPLIFICATION) COVID-19 (ID NOW RAPID 2020-06-06 04:41:00 Wilfredo Barr [facility] TESTING) [facility] XR CHEST 1 VW 2020-06-06 03:04:04 Singer [facility] TROPONIN I 2020-06-06 02:53:00 Singer [facility] COMP. METABOLIC PANEL 2020-06-06 02:53:00 Wilfredo Barr [facility] ([id number]) Medical Branch CBC WITH DIFF 2020-06-06 02:53:00 Barr, [facility] GLYCOSYLATED HEMOGLOBIN 2020-06-06 02:53:00 Dianna Marycarmen [facility] (A1C) Medical Branch URINALYSIS 2020-06-06 02:53:00 Barr, [facility] NOTICE OF PRIVACY 2020-06-06 02:26:49 Doctor Unassigned, [facility] PRACTICES Name Medical Branch Plan of Care Planned Activity Planned Date Details Comments Source Future Scheduled 2021-04-21 65+ PNEUMOCOCCAL [facility] Test 00:17:20 VACCINE (1 of 2 - PPSV23) [code = 65+ PNEUMOCOCCAL VACCINE (1 of 2 - PPSV23)] Future Scheduled 2021-04-21 [facility] 00:17:20 (procedure) [code = 663627562] Future Scheduled 2021-04-21 COLONOSCOPY SCREENING [facility] Test 00:17:20 [code = COLONOSCOPY SCREENING] Future Scheduled 2021-04-21 SHINGLES VACCINES (#1) [facility] Test 00:17:20 [code = SHINGLES VACCINES (#1)] Future Scheduled 2021-04-21 INFLUENZA VACCINE [facility] Test 00:17:20 [code = INFLUENZA VACCINE] Future Scheduled 2021-04-21 COVID-19 VACCINE (3 - [facility] Test 00:17:20 Booster for Pfizer series) [code = COVID-19 VACCINE (3 - Booster for Pfizer series)] Future Scheduled 2021-04-21 65+ [facility]OCOCCAL [facility] Test 00:17:20 VACCINE (1 of 2 - PPSV23) [code = 65+ PNEUMOCOCCAL VACCINE (1 of 2 - PPSV23)] Future Scheduled 2021-04-21 [facility] Test 00:17:20 (procedure) [code = 972085920] Future Scheduled 2021-04-21 [facility]ING [facility] Test 00:17:20 [code = COLONOSCOPY SCREENING] Future Scheduled 2021-04-21 SHINGLES VACCINES (#1) [facility] Test 00:17:20 [code = SHINGLES VACCINES (#1)] Future Scheduled 2021-04-21 INFLUENZA VACCINE Method ist Hospital Test 00:17:20 [code = INFLUENZA VACCINE] Future Scheduled 2021-04-21 COVID-19 VACCINE (3 - [facility] Test 00:17:20 Booster for Pfizer series) [code = COVID-19 VACCINE (3 - Booster for Pfizer series)] Future Scheduled 2020-11-18 INFLUENZA VACCINE (#1[facility]00 [code = INFLUENZA Medical Ce nter VACCINE (#1)] Future Scheduled 2020-11-18 INFLUENZA VACCINE (#1[facility] 00:00:00 [code = INFLUENZA Medical Ce nter VACCINE (#1)] Future Scheduled 2020-03-[address] [facility] Test 00:00:00 WELLNESS (YEAR 2 or Medical Center FIRST YEAR if no IPPE) [code = MEDICARE ANNUAL WELLNESS (YEAR 2 or FIRST YEAR if no IPPE)] Future Scheduled 2020-03-[address] [facility] [facility] Test 00:00:00 WELLNESS (YEAR 2 or Medical Center FIRST YEAR if no IPPE) [code = MEDICARE ANNUAL WELLNESS (YEAR 2 or FIRST YEAR if no IPPE)] Future Scheduled 2020-03-[address] [facility] Test 00:00:00 (12+) [code = Medical Center DEPRESSION SCREENING (12+)] Future Scheduled 2020-03-20 FALLS RISK SCREENING [facility] Test 00:00:00 [code = FALLS RISK Medical C enter SCREENING] Future Scheduled 2020-03-[address] [facility] Test 00:00:00 (12+) [code = Medical Center DEPRESSION SCREENING (12+)] Future Scheduled 2020-03-20 FALLS RISK SCREENING [facility] Test 00:00:00 [code = FALLS RISK Medical C enter SCREENING] Future Scheduled 2014 PNEUMOCOCCAL 65+ Y[facility] Test 00:00:00 (1 of 1 - [facility] [id number] PCV13) [code = PNEUMOCOCCAL 65+ YRS (1 of 1 - [id number] PCV13)] Future Scheduled 2014 PNEUMOCOCCAL 65+ Y[facility] Test 00:00:00 (1 of 1 - [facility] [id number] PCV13) [code = PNEUMOCOCCAL 65+ YRS (1 of 1 - [id number] PCV13)] Future Scheduled 1999-08-13 SHINGLES VACCINES ([address] [facility] Test 00:00:00 of 2) [code = SHINGLES Medic al Center VACCINES (1 of 2)] Future Scheduled 1999-08-13 SHINGLES VACCINES ([address] [facility] Test 00:00:00 of 2) [code = SHINGLES Medic al Center VACCINES (1 of 2)] Future Scheduled 1968 DTAP/TDAP/TD [facility]ACCINES [facility] Test 00:00:00 (1 - Tdap) [code = Medical C enter DTAP/TDAP/TD VACCINES (1 - Tdap)] Future Scheduled 1968 DTAP/TDAP/TD [facility]ACCINES [facility] Test 00:00:00 (1 - Tdap) [code = Medical C enter DTAP/TDAP/TD VACCINES (1 - Tdap)] Future Scheduled 1967-08-13 HEPATITIS C [facility]CREENING [facility] Test 00:00:00 [code = HEPATITIS C Medical Center SCREENING] Future Scheduled 1967-08-13 HEPATITIS C [facility]CRE[facility]ING [facility] Test 00:00:00 [code = HEPATITIS C Medical Center SCREENING] Future Scheduled 1961 COVID-19 VACCINE (1) [facility] Test 00:00:00 [code = COVID-[address] VACCINE (1)] Future Scheduled 1961 COVID-19 VACCINE (1) [facility] Test 00:00:00 [code = COVID-[address] VACCINE (1)] Future Scheduled [address] [facility] Test 00:00:00 malignant neoplasm of Medica l Center colon (procedure) [code = 118976208] Future Scheduled [address] [facility] [facility] Test 00:00:00 malignant neoplasm of Medica l Center colon (procedure) [code = 281581787] Encounters Start End Encounter Admission Attending Care Care Encounter Source Date/Time Date/Time Type Type Clinicians Facility Department ID 2020-12-23 Outpatient JEFFERSON BRAGG [facility] Surgery [id number] [facility] 02:00:22 2021-09-21 2021-09-29 [address] JANG [facility] [id number] [place] 00:00:00 00:00:[address] 2021-03-03 2021-03-03 Refill Yaltho, 1.2.840.1 [id number] [facility] 00:00:00 00:00:[address] 3.430.2.7 Hospit a .3.227121 l .8 2020-07-20 2020-07-20 Refill Yaltho, 1.2.840.1 [id number] [facility] 00:00:00 00:00:[address] 3.430.2.7 Hospit a .3.547846 l .8 2020-06-11 2020-06-11 Transition Yadiel Patricia 1.2.840.114 [id number] Univers 00:00:00 00:00:00 of Care Teagan Avendaño 350.1.13.10 [place] [phone] [facility] 403 Branch 2020-06-09 2020-06-09 Orders Doctor JEFFERSON 1.2.840.114 [id number] Univers 00:00:00 00:00:00 Only Unassigned, JUDITH 350.1.13.10 ity of [place] [facility] 4.2.7.2.686 Roger as [phone] [facility] 009 Branch 2020-06-08 2020-06-08 Transition Yadiel Patricia 1.2.840.114 [id number] Univers 00:00:00 00:00:00 of Care Teagan Avendaño 350.1.13.10 [place] [id number] [facility] 403 Branch 2020-06-05 2020-06-06 Emergency Wilfredo Barr 1.2.840. 114 [id number] Univers 21:29:00 14:10:00 Marycarmen Bustamante 350.1.13.10 ity of [place] [phone] [place] [address] Branch 2020-06-05 2020-06-05 Emergency X , [facility] ERT [id number] Univers 21:29:00 21:29:00 WILFREDO leung [facility] 2020-05-17 2020-05-17 Clinical Sushantenoch, 1.2.840.1 [id number] [facility] 16:49:22 16:52:11 Support Demetrio 42492.1.[address] P. 3.430.2.7 Hospit a .3.067952 l .8 2020-04-30 2020-04-30 Telemedici Desi, 1.2.840.1 [id number] [facility] 09:41:31 09:51:08 ne Pablo Carrasquillo 10041.1.[address] 3.430.2.7 Hospit a .3.176646 l .8 2020-04-26 2020-04-26 Clinical 1.2.840.1 [id number] [facility] 16:28:39 16:43:[address] 3.430.2.7 Hospit a .3.091339 l .8 2020-04-26 2020-04-26 Travel 1.2.840.1 1.2.306.236 [id number] [facility] 00:00:00 00:00:[address] 3.430.2.7 0.2.7.3.698 spita .3.255006 084.8 l .8 2020-03-03 2020-03-03 Outpatient JEFFERSON BRAGG [facility] [id number] [place] 00:00:00 00:00:00 933 Method i 2020-02-26 2020-02-26 Outpatient STEFANO [facility] [id number] [place] 00:00:00 00:00:00 SAMREEN 173 Method i 2020-02-19 2020-02-[address] [facility] [id number] [place] 00:00:00 00:00:00 JOCELYN [address] 2020-02-19 2020-02-19 Outpatient GISELA, [facility] [id number] [place] 00:00:00 00:00:00 JOCELYN [address] 2020-02-19 2020-02-19 Outpatient GISELA, [facility] [id number] [place] 00:00:00 00:00:00 JOCELYN [address] 2019-12-25 2019-12-25 Outpatient YALTHO, [facility] [id number] [place] 00:00:00 00:00:00 PABLO [address] 2019-12-17 2019-12-17 Outpatient JEFFERSON BRAGG [facility] 2100 [id number] [place] 00:00:00 00:00:[address] 2019-11-19 2019-11-19 Outpatient JEFFERSON BRAGG [facility] 2100 [id number] [place] 00:00:00 00:00:[address] 2019-10-30 2019-10-30 Outpatient EL [facility] [id number] [facility] 00:00:00 00:00:00 2019-10-03 2019-10-03 Outpatient JEFFERSON BRAGG [facility] 2100 [id number] [place] 00:00:00 00:00:[address] 2019-10-03 2019-10-03 Outpatient JEFFERSON BRAGG [facility] 2100 [id number] [place] 00:00:00 00:00:[address] 2019-10-03 2019-10-03 Outpatient JEFFERSON BRAGG [facility] 2100 [id number] [place] 00:00:00 00:00:[address] 2019-08-22 2019-08-22 Outpatient SHKEDY, [facility] [id number] [place] 00:00:00 00:00:00 SAMREEN [address] 2019-08-22 2019-08-22 Outpatient YALTHO, [facility] [id number] [place] 00:00:00 00:00:00 PABLO [address] 2019-08-16 2019-08-16 Outpatient GISELA, [facility] [id number] [place] 00:00:00 00:00:00 JOCELYN [address] 2019-08-16 2019-08-16 Outpatient GISELA, [facility] [id number] [place] 00:00:00 00:00:00 JOCELYN [address] 2019-07-19 2019-07-19 Outpatient YALTHO, [facility] [id number] [place] 00:00:00 00:00:00 PABLO [address] 2019-05-03 2019-05-03 Outpatient YALTHO, [facility] [id number] [place] 00:00:00 00:00:00 PABLO [address] 2019-05-03 2019-05-03 Outpatient YALTHO, [facility] [id number] [place] 00:00:00 00:00:00 PABLO [address] 2019-03-09 2019-03-09 Outpatient GISELA, [facility] [id number] [place] 00:00:00 00:00:00 JOCELYN [address] 2019-02-25 2019-02-25 Outpatient GISELA, [facility] [id number] [place] 00:00:00 00:00:00 JOCELYN [address] 2019-02-25 2019-02-25 Outpatient GISELA, [facility] [id number] [place] 00:00:00 00:00:00 JOCELYN [address] 2019-01-17 2019-01-17 Outpatient SHKEDY, [facility] [id number] [place] 00:00:00 00:00:00 SAMREEN [address] 2018-12-18 2018-12-18 Outpatient SHKEDY, [facility] [id number] [place] 00:00:00 00:00:00 SAMREEN [address] 2018-12-06 2018-12-06 Outpatient SHKEDY, [facility] [id number] [place] 00:00:00 00:00:00 SAMREEN [address] 2018-12-04 2018-12-04 Outpatient SHKEDY, [facility] [id number] [place] 00:00:00 00:00:00 SAMREEN [address] 2018-11-30 2018-11-30 Outpatient SHKEDY, [facility] [id number] [place] 00:00:00 00:00:00 SAMREEN [address] 2018-11-28 2018-11-28 Outpatient SHKEDY, [facility] [id number] [place] 00:00:00 00:00:00 SAMREEN [address] 2018-11-26 2018-11-27 Outpatient SHKEDY, [facility] [id number] [place] 00:00:00 00:00:00 SAMREEN [address] 2018-11-26 2018-11-26 Outpatient STEFANO [facility] [id number] [place] 00:00:00 00:00:00 SAMREEN [address] Results Test Description Test Time Test Comments Results Result Comments Source SARS-CoV-2 (COVID-19) RNA [Presence] in Respiratory sp ecimen by 2021-09-29 16:13:23 SJ with probe detection Test Item Value Reference Range Interpretation Comme nts SARS-CoV-2 (COVID-19) RNA [Presence] in Respiratory specimen by Not detected SJ with probe detection (test code = 29450-1) Whether patient is employed in a healthcare setting (test code = Un known 83731-2) Whether the patient has symptoms related to condition of interest U nknown (test code = 13665-0) Whether the patient was hospitalized for condition of interest Unkn own (test code = 77321-1) Whether the patient was admitted to intensive care unit (ICU) for U nknown condition of interest (test code = 42219-5) Whether patient resides in a congregate care setting (test code = U nknown 44499-2) status (test code = 11202-4) Unknown Date and time of symptom onset (test code = 25315-1) Unknown SARS-CoV-2 (COVID-19) RNA [Presence] in Respiratory specimen by SJ with probe [id number] 18:25:31 Test Item Value Reference Range Interpretation Comments SARS-CoV-2 (COVID-19) RNA Not detected [Presence] in Respiratory specimen by SJ with probe detection (test code = 53334-8) Whether patient is employed in a Unknown healthcare setting (test code = 12722-9) Whether the patient has symptoms Unknown related to condition of interest (test code = 73234-0) Whether the patient was Unknown hospitalized for condition of interest (test code = 89034-6) Whether the patient was admitted Unknown to intensive care unit (ICU) for condition of interest (test code = 02855-5) Whether patient resides in a Unknown congregate care setting (test code = 54162-4) status (test code = Unknown 56754-3) Date and time of symptom onset Unknown (test code = 79829-0) TROPONIN [id number] 16:33:01 Test Item Value Reference Range Interpretation Comments TROPONIN I (test <0.012 See_Comment [Automated code = 3271131307) message] The system which generated this result transmitted reference range : <=0.034 ng/mL. The reference range was not used to interpr et this result as normal/abnormal . FRANK (test code = Equal or Less than FRANK) 0.034 ng/ml---Normal ?Note: Cardiac troponin begins to rise 3-4 hours after the onset of ischemia. Repeat in 4-6 hours if the sample was drawn within 3-4 hours of the onset of the symptom and found normal. Between 0.035 and 0.120 ng/mL--- Borderline. Questionable myocardial injury or necrosis ? ?Note: Serial measurement may be necessary to confirm or exclude the diagnosis of myocardial injury or necrosis; Clinical correlation (symptoms, EKGs, imaging studies, and others) required; Repeat in 4-6 hours if clinically indicated. ? Equal or Higher than 0.121 ng/mL---Abnormal. Myocardial Injury or Necrosis Likely ? Biotin has been reported to cause a negative bias, interpret results relative to patient's use of biotin. ? Lab Interpretation Normal (test code = 98694-2) [id number] 16:30:00 Test Item Value Reference Range Interpretation Comments NT-proBNP (test code 185 pg/mL See_Comment H [Autom ated = 3042125976) message] The system which generated this result transmitted reference range : <=125. The reference range was not used to interpret this result as normal/abnormal . FRANK (test code = FRANK) Biotin has been reported to cause a negative bias, interpret results relative to patient's use of biotin. Lab Interpretation Abnormal (test code = 50472-2) [facility] (38482)(TOTAL CHOLESTEROL, TRIGLYCERIDES, HDL)2020-06-06 16:22:02 Test Item Value Reference Range Interpretation Comments CHOL (test code = 214 mg/dL 120-200 H 9655595729) HDL (test code = 60 mg/dL >40 6617259125) HDLC RATIO (test code = See_Comment [Au tomated message] [id number]) The system Yowza generated this result transmit jozef reference range : <=5.0. The refe rence range was not u sed to interpret th is result as normal/abnormal . TRIG (test code = 316 mg/dL 30-170 H 3283582695) LDL CHOL (test code = 91 mg/dL See_Comment [Auto mated message] 24305-2) The system Yowza generated this result transmit jozef reference range : <=160. The refe rence range was not u sed to interpret th is result as normal/abnormal . VLDL (test code = 63 mg/dL 5-60 H 8180927009) Lab Interpretation (test Abnormal code = 09179-2) [facility] [id number] 11:58:49 Test Item Value Reference Range Interpretation Comments SARS-CoV-2 NAAT (test Positive Not Detected A code = 70488-9) FRANK (test code = FRANK) Kale[employer]oscope Xpert ?Xpress SARS-CoV-2 Assay is a rapid, real-time RT-PCR test intended for the qualitative detection of nucleic acid from the SARS-CoV-2 in nasopharyngeal ([employer]) specimens. It is used under Emergency Use Authorization (EUA) by FDA. A positive result is indicative of the presence of SARS-CoV-2 RNA. ?Clinical correlation with patient history and other diagnostic information is necessary to determine patient infection status. A negative (Not Detected) result does not preclude SARS-CoV-2 infection. A negative result does not rule out the presence of PCR inhibitors in the patient specimen or SARS-CoV-2 virus RNA concentrations below the limit of detection by the assay. Clinical correlation with patient history and other diagnostic information should be used in patient management decisions. Invalid: Please collect a new specimen for repeat patient testing if clinically indicated. Lab Interpretation Abnormal (test code = 21508-5) [facility] (A1C)2020-06-06 11:56:53 Test Item Value Reference Range Interpretation Comments HGB A1C (test code = 7.8 % 4.0-6.0 H 4548-4) FRANK (test code = FRANK) %A1C (NGSP) Interpretation (ADA)4.8-5.6 ? ? Normal or (Non-Diabetic Range)5.7-6.4 ? ? Increased Risk (Pre-Diabetic)>6.5 ?Diabetes Indicated Lab Interpretation Abnormal (test code = 87045-8) [facility]ID NOW RAPID TESTING)2020-06-06 04:57:34 Test Item Value Reference Range Interpretation Comments SARS-CoV-2 Rapid ID NOW Positive Not Detected A (test code = 07013-6) FRANK (test code = FRANK) ID NOW COVID-19 Assay is an isothermal nucleic acid amplification test intended for the qualitative detection of nucleic acid from SARS-CoV-2 viral RNA in nasopharyngeal ([employer]) specimens. It is used under Emergency Use Authorization (EUA) by FDA. The limit of detection (LOD) of the assay is 125 Genome Equivalents/mL. A positive result is indicative of the presence of SARS-CoV-2 RNA. ?Clinical correlation with patient history and other diagnostic information is necessary to determine patient infection status. A negative (Not Detected) result does not preclude SARS-CoV-2 infection. In patients with clinical symptoms and other tests that are consistent with SARS-CoV-2 infection, negative results should be treated as presumptive negative and a new specimen should be tested with alternative PCR molecular test. Invalid: Please collect a new specimen for repeat patient testing if clinically indicated. Lab Interpretation Abnormal (test code = 80169-4) [facility] [id number] 03:36:48 Test Item Value Reference Range Interpretation Comments TROPONIN I (test <0.012 See_Comment [Automated code = 0177111606) message] The system which generated this result transmitted reference range : <=0.034 ng/mL. The reference range was not used to interpr et this result as normal/abnormal . FRANK (test code = Equal or Less than FRANK) 0.034 ng/ml---Normal ?Note: Cardiac troponin begins to rise 3-4 hours after the onset of ischemia. Repeat in 4-6 hours if the sample was drawn within 3-4 hours of the onset of the symptom and found normal. Between 0.035 and 0.120 ng/mL--- Borderline. Questionable myocardial injury or necrosis ? ?Note: Serial measurement may be necessary to confirm or exclude the diagnosis of myocardial injury or necrosis; Clinical correlation (symptoms, EKGs, imaging studies, and others) required; Repeat in 4-6 hours if clinically indicated. ? Equal or Higher than 0.121 ng/mL---Abnormal. Myocardial Injury or Necrosis Likely ? Biotin has been reported to cause a negative bias, interpret results relative to patient's use of biotin. ? Lab Interpretation Normal (test code = 23638-6) [facility]. METABOLIC PANEL (08310)2020-06-06 03:23:27 Test Item Value Reference Range Interpretation Comments NA (test code = 135 mmol/L 135-145 2581504602) K (test code = 4.5 mmol/L 3.5-5.0 7753991070) CL (test code = 99 mmol/L 98-108 0418959283) CO2 TOTAL (test code = 27 mmol/L 23-31 5466474410) AGAP (test code = 2-16 1636975983) BUN (test code = 25 mg/dL 7-23 H 1762845643) GLUCOSE (test code = 203 mg/dL 70-110 H 6162451321) CREATININE (test code = 1.31 mg/dL 0.60-1.25 H 8275491885) TOTAL BILI (test code = 0.6 mg/dL 0.1-1.2 8343772726) CALCIUM (test code = 9.0 mg/dL 8.6-10.6 0027426853) T PROTEIN (test code = 6.9 g/dL 6.3-8.2 2145499967) ALBUMIN (test code = 4.3 g/dL 3.5-5.0 0227300814) ALK PHOS (test code = 54 U/L 34-122 6134155915) ALTv (test code = 12 U/L 5-50 1742-6) AST(SGOT) (test code = 25 U/L 13-40 8585229947) eGFR Calculation mL/min/1.73m2 (Non-) (test code = 7614473474) eGFR Calculation mL/min/1.73m2 () (test code = 9041221081) FRANK (test code = FRANK) Association of Glomerular Filtration Rate (GFR) and Staging of Kidney Disease* + --+ --+ ------+| GFR (mL/min/1.73 m2) ?| With Kidney Damage ?| ?Without Kidney Damage+ --------+ --------+ +| ?>90 ?| ?Stage one ?| ? Normal ?+ ---+ ---+ -------+| ?60-89 ?| ?Stage two ?| ? Decreased GFR ? + --+ --+ ------+| ?30-59 ?| ?Stage three ?| ? Stage three ? + --+ --+ ------+| ?15-29 ?| ?Stage four ? | ? Stage four ?+ ---+ ---+ -------+| ?<15 (or dialysis) ? ?| ?Stage five ? | ? Stage five ?+ ---+ ---+ -------+ *Each stage assumes the associated GFR level has been in effect for at least three months. ?Stages 1 to 5, with or without kidney disease, indicate chronic kidney disease. Notes: Determination of stages one and two (with eGFR >59mL/min/1.73 m2) requires estimation of kidney damage for at least three months as defined by structural or functional abnormalities of the kidney, manifested by either:Pathological abnormalities or Markers of kidney damage (including abnormalities in the composition of the blood or urine or abnormalities in imaging tests). Lab Interpretation Abnormal (test code = 29372-2) [facility] [id number] 03:19:40 Test Item Value Reference Range Interpretation Comments APPEARANCE (test code = Hazy Clear A 6670792813) COLOR (test code = Anais Yellow A 8655471093) PH (test code = 4.8-8.0 8378166666) SP GRAVITY (test code = 1.003-1.030 3789654162) GLU U QUAL (test code = 500 mg/dL Normal A 9841157997) BLOOD (test code = Negative Negative 4167349253) KETONES (test code = 5 mg/dL Negative A 9497393462) PROTEIN (test code = 30 mg/dL Negative A 2887-8) UROBILIN (test code = 2.0 mg/dL Normal A 7175481404) BILIRUBIN (test code = Negative Negative 1681864309) NITRITE (test code = Negative Negative 5469026601) LEUK RAIN (test code = Negative Negative 5793796275) RBC/HPF (test code = See_Comment [Autom ated message] 8284247180) The system Yowza generated this result transmit jozef reference range : 0 - 3 HPF. The refe rence range was not u sed to interpret th is result as normal/abnormal . WBC/HPF (test code = See_Comment [Autom ated message] 3178526616) The system Yowza generated this result transmit jozef reference range : 0 - 5 HPF. The refe rence range was not u sed to interpret th is result as normal/abnormal . BACTERIA (test code = Few Negative A 6222929771) MUCOUS (test code = Slight Negative LPF A 3839731564) SQ EPITH (test code = HPF 1427823662) HYAL CAST (test code = See_Comment H [Aut omated message] 3365443088) The system Yowza generated this result transmit jozef reference range : <=2 LPF. The refere nce range was not u sed to interpret th is result as normal/abnormal . Lab Interpretation (test Abnormal code = 32052-0) [facility] WITH [id number] 03:13:42 Test Item Value Reference Range Interpretation Comments WBC (test code = See_Comment [Automated 6690-2) message] The sy stem which generated this result transmitted reference range : 4.20 - 10.70 10*3/?L. The reference range was not used to interpret this result as normal/abnormal . RBC (test code = See_Comment [Automated 789-8) message] The sy stem which generated this result transmitted reference range : 4.26 - 5.52 10*6/?L. The reference range was not used to interpret this result as normal/abnormal . HGB (test code = 13.7 g/dL 12.2-16.4 718-7) HCT (test code = 42.4 % 38.4-49.3 4544-3) MCV (test code = 88.0 fL 81.7-95.6 787-2) MCH (test code = 28.4 pg 26.1-32.7 785-6) MCHC (test code = 32.3 g/dL 31.2-35.0 786-4) RDW-SD (test code = 46.5 fL 38.5-51.6 23851-1) RDW-CV (test code = 14.5 % 12.1-15.4 788-0) PLT (test code = See_Comment [Automated 777-3) message] The sy stem which generated this result transmitted reference range : 150 - 328 10*3/ ?L. The reference r denise was not used to interpret this result as normal/abnormal . MPV (test code = 9.6 fL 9.8-13.0 L 81808-3) NRBC/100 WBC (test See_Comment [Automat ed code = 5125426453) message] The system which generated this result transmitted reference range : 0.0 - 10.0 /100 WBCs. The refer ence range was not u sed to interpret th is result as normal/abnormal . NRBC x10^3 (test code <0.01 See_Comment [Auto mated = 8784638887) message] The s ystem which generated this result transmitted reference range : 10*3/?L. The reference range was not used to interpret this result as normal/abnormal . GRAN MAT (NEUT) % 54.8 % (test code = 770-8) IMM GRAN % (test code 1.30 % = 8309285969) LYMPH % (test code = 27.9 % 736-9) MONO % (test code = 7.8 % 5905-5) EOS % (test code = 7.6 % 713-8) BASO % (test code = 0.6 % 706-2) GRAN MAT x10^3(ANC) 5.66 10*3/uL 1.99-6.95 (test code = 0380590352) IMM GRAN x10^3 (test 0.13 10*3/uL 0.00-0.06 H code = 2903686772) LYMPH x10^3 (test code 2.88 10*3/uL 1.09-3.23 = 731-0) MONO x10^3 (test code 0.81 10*3/uL 0.36-1.02 = 742-7) EOS x10^3 (test code = 0.78 10*3/uL 0.06-0.53 H 711-2) BASO x10^3 (test code 0.06 10*3/uL 0.01-0.09 = 704-7) Lab Interpretation Abnormal (test code = 54430-6) [id number] 03:11:14 1. ?No acute cardiopulmonary abnormality.EXAM: XR CHEST 1 VW HISTORY: syncope COMPARISON: None available FINDINGS: Lines/Tubes: Right Port-A-Cath extends to distal SVC. Lungs: The lungs are poor expanded with perihilar vascular crowding.Retrocardiac opacity is likely atelectasis. Heart/Mediastinum: The cardiomediastinal silhouette is at upper limit ofnormal. Bones: Changes from medial sternotomy. An ACDF partial visualized. [facility], Radiant Results Inft User - 06/05/2020 10:12 PM CDTEXAM: XR CHEST 1 VWHISTORY: syncope COMPARISON: None availableFINDINGS:Lines/Tubes: Right Port-A-Cath extends to distal SVC.Lungs: The lungs are poor expanded with perihilar vascular crowding.Retrocardiac opacity is likely atelectasis.Heart/Mediastinum: The cardiomediastinal silhouette is at upper limit ofnormal.Bones:Changes from medial sternotomy. An ACDF partial visualized.IMPRESSION1. No acute cardiopulmonary abnormality. [facility] [id number] 09:06:00 Test Item Value Reference Range Interpretation Comments CULTURE (BEAKER) (test code = 1095) No growth POCT-GLUCOSE [id number] 12:32:00 Test Item Value Reference Range Interpretation Comments POC-GLUCOSE METER 188 mg/dL 70-110 H : TESTED A T [facility] [address] (BEAKER) (test code [address], = 1538) [facility] [address]: Research Compliance Specialist/Techni eddie ID = [id number] for Bhavin Carvajal POCT-GLUCOSE [id number] 08:42:00 Test Item Value Reference Range Interpretation Comments POC-GLUCOSE METER 135 mg/dL 70-110 H : TESTED A T [facility] [address] (BEAKER) (test code [address], = 1538) [facility] [place] [address]: Research Compliance Specialist/Techni eddie ID = [id number] for Bhavin Carvajal COMPREHENSIVE METABOLIC [id number] 05:20:00 Test Item Value Reference Range Interpretation Comments TOTAL PROTEIN 5.8 gm/dL 6.0-8.5 L (BEAKER) (test code = 770) ALBUMIN (BEAKER) 3.6 g/dL 3.5-5.0 (test code = 1145) ALKALINE PHOSPHATASE 47 U/L 30-115 (BEAKER) (test code = 346) BILIRUBIN TOTAL 0.6 mg/dL 0.1-1.2 (BEAKER) (test code = 377) SODIUM (BEAKER) (test 140 meq/L 135-148 code = 381) POTASSIUM (BEAKER) 4.0 meq/L 3.6-5.5 (test code = 379) CHLORIDE (BEAKER) 104 meq/L 98-106 (test code = 382) CO2 (BEAKER) (test 25 meq/L 20-29 code = 355) BLOOD UREA NITROGEN 14 mg/dL 10-26 (BEAKER) (test code = 354) CREATININE (BEAKER) 0.83 mg/dL 0.50-1.20 (test code = 358) GLUCOSE RANDOM 153 mg/dL 70-110 H (BEAKER) (test code = 652) CALCIUM (BEAKER) 8.5 mg/dL 8.5-10.5 (test code = 697) AST (SGOT) (BEAKER) 19 U/L 5-40 (test code = 353) ALT (SGPT) (BEAKER) 5 U/L 5-50 (test code = 347) EGFR (BEAKER) (test 92 mL/min/1.73 ESTIMA JOZEF GFR IS code = 1092) sq m NOT ACCURATE CREATININE CLEARANCE IN PREDICTING GLOMERULAR FILTRATION RATE . ESTIMATED GFR I S NOT APPLICABLE FOR DIALYSIS PATIEN TS. Research Compliance Specialist ID - [id number] W/PLT COUNT & AUTO [id number] 04:56:00 Test Item Value Reference Range Interpretation Comments WHITE BLOOD CELL COUNT (BEAKER) 9.5 K/ L 4.0-10.0 (test code = 775) RED BLOOD CELL COUNT (BEAKER) 4.18 M/ L 4.20-5.80 L (test code = 761) HEMOGLOBIN (BEAKER) (test code = 12.4 GM/DL 13.0-16.8 L 410) HEMATOCRIT (BEAKER) (test code = 38.0 % 36.0-50.0 411) MEAN CORPUSCULAR VOLUME (BEAKER) 90.9 fL 82.0-99.0 (test code = 753) MEAN CORPUSCULAR HEMOGLOBIN 29.7 pg 27.0-33.0 (BEAKER) (test code = 751) MEAN CORPUSCULAR HEMOGLOBIN CONC 32.6 GM/DL 32.0-36.0 (BEAKER) (test code = 752) RED CELL DISTRIBUTION WIDTH 13.4 % 12.0-15.0 (BEAKER) (test code = 412) PLATELET COUNT (BEAKER) (test 183 K/CU MM 150-430 code = 756) MEAN PLATELET VOLUME (BEAKER) 9.4 fL 6.0-11.5 (test code = 754) NUCLEATED RED BLOOD CELLS 0 /100 WBC 0-0 (BEAKER) (test code = 413) NEUTROPHILS RELATIVE PERCENT 72 % (BEAKER) (test code = 429) LYMPHOCYTES RELATIVE PERCENT 19 % (BEAKER) (test code = 430) MONOCYTES RELATIVE PERCENT 8 % (BEAKER) (test code = 431) EOSINOPHILS RELATIVE PERCENT 0 % (BEAKER) (test code = 432) BASOPHILS RELATIVE PERCENT 0 % (BEAKER) (test code = 437) NEUTROPHILS ABSOLUTE COUNT 6.88 K/ L 1.80-8.00 (BEAKER) (test code = 670) LYMPHOCYTES ABSOLUTE COUNT 1.83 K/ L 1.48-4.50 (BEAKER) (test code = 414) MONOCYTES ABSOLUTE COUNT (BEAKER) 0.75 K/ L 0.00-1.30 (test code = 415) EOSINOPHILS ABSOLUTE COUNT 0.02 K/ L 0.00-0.50 (BEAKER) (test code = 416) BASOPHILS ABSOLUTE COUNT (BEAKER) 0.01 K/ L 0.00-0.20 (test code = 417) IMMATURE GRANULOCYTES-RELATIVE 1 % 0-0 H PERCENT (BEAKER) (test code = 2801) POCT-GLUCOSE [id number] 20:27:00 Test Item Value Reference Range Interpretation Comments POC-GLUCOSE METER 258 mg/dL 70-110 H : TESTED A T [facility] [address] (BEAKER) (test code [address], = 1538) [place] [address]: Research Compliance Specialist/Techni eddie ID = [id number] for Bettina Leal POCT-GLUCOSE [id number] 17:51:00 Test Item Value Reference Range Interpretation Comments POC-GLUCOSE METER 262 mg/dL 70-110 H : TESTED A T [facility] [address] (BEAKER) (test code [address], = 1538) [place] [id number]: Research Compliance Specialist/Techni eddie ID = [id number] for Obik roberta, Ifeyinwa POCT-GLUCOSE [id number] 12:48:00 Test Item Value Reference Range Interpretation Comments POC-GLUCOSE METER 242 mg/dL 70-110 H : TESTED A T [facility] [address] (BEAKER) (test code [address], = 1538) [place] [address]: Research Compliance Specialist/Techni eddie ID = [id number] for Obik rboerta, Ifeyinwa PT/[id number] 10:22:00 Test Item Value Reference Range Interpretation Comments PROTIME (BEAKER) (test code = 759) 10.5 sec 9.3-12.0 INR (BEAKER) (test code = 370) 0.96 <=5.90 PARTIAL THROMBOPLASTIN TIME (BEAKER) 22.8 sec 23.0-35.0 L (test code = 760) RECOMMENDED COUMADIN/WARFARIN INR THERAPY RANGESSTANDARD DOSE: 2.0 - 3.0 Includes: PROPHYLAXIS forvenous thrombosis, systemic embolization; TREATMENT for venous thrombosis and/or pulmonary embolus.HIGH RISK: Target INR is 2.5-3.5 for patients with mechanical heart valves.Final Information (Auto Output)Final Information (Auto Output)Final Information (Auto Output)[id number] 10:19:00 Test Item Value Reference Range Interpretation Comments MAGNESIUM (BEAKER) (test code = 2.1 mg/dL 1.5-3.0 627) Research Compliance Specialist ID - [id number] METABOLIC [id number] 10:18:00 Test Item Value Reference Range Interpretation Comments SODIUM (BEAKER) 137 meq/L 135-148 (test code = 381) POTASSIUM (BEAKER) 4.7 meq/L 3.6-5.5 (test code = 379) CHLORIDE (BEAKER) 102 meq/L 98-106 (test code = 382) CO2 (BEAKER) (test 23 meq/L 20-29 code = 355) BLOOD UREA NITROGEN 12 mg/dL 10-26 (BEAKER) (test code = 354) CREATININE (BEAKER) 0.98 mg/dL 0.50-1.20 (test code = 358) GLUCOSE RANDOM 224 mg/dL 70-110 H (BEAKER) (test code = 652) CALCIUM (BEAKER) 8.9 mg/dL 8.5-10.5 (test code = 697) EGFR (BEAKER) (test 76 mL/min/1.73 ESTIMA JOZEF GFR IS code = 1092) sq m NOT ACCURATE CREATININE CLEARANCE IN PREDICTING GLOMERULAR FILTRATION RATE . ESTIMATED GFR I S NOT APPLICABLE FOR DIALYSIS PATIEN TS. Research Compliance Specialist ID - [id number] W/PLT COUNT & AUTO [id number] 10:14:00 Test Item Value Reference Range Interpretation Comments WHITE BLOOD CELL COUNT (BEAKER) 13.9 K/ L 4.0-10.0 H (test code = 775) RED BLOOD CELL COUNT (BEAKER) 4.63 M/ L 4.20-5.80 (test code = 761) HEMOGLOBIN (BEAKER) (test code = 13.6 GM/DL 13.0-16.8 410) HEMATOCRIT (BEAKER) (test code = 42.0 % 36.0-50.0 411) MEAN CORPUSCULAR VOLUME (BEAKER) 90.7 fL 82.0-99.0 (test code = 753) MEAN CORPUSCULAR HEMOGLOBIN 29.4 pg 27.0-33.0 (BEAKER) (test code = 751) MEAN CORPUSCULAR HEMOGLOBIN CONC 32.4 GM/DL 32.0-36.0 (BEAKER) (test code = 752) RED CELL DISTRIBUTION WIDTH 13.6 % 12.0-15.0 (BEAKER) (test code = 412) PLATELET COUNT (BEAKER) (test 211 K/CU MM 150-430 code = 756) MEAN PLATELET VOLUME (BEAKER) 9.0 fL 6.0-11.5 (test code = 754) NUCLEATED RED BLOOD CELLS 0 /100 WBC 0-0 (BEAKER) (test code = 413) NEUTROPHILS RELATIVE PERCENT 88 % (BEAKER) (test code = 429) LYMPHOCYTES RELATIVE PERCENT 8 % (BEAKER) (test code = 430) MONOCYTES RELATIVE PERCENT 4 % (BEAKER) (test code = 431) EOSINOPHILS RELATIVE PERCENT 0 % (BEAKER) (test code = 432) BASOPHILS RELATIVE PERCENT 0 % (BEAKER) (test code = 437) NEUTROPHILS ABSOLUTE COUNT 12.18 K/ L 1.80-8.00 H (BEAKER) (test code = 670) LYMPHOCYTES ABSOLUTE COUNT 1.07 K/ L 1.48-4.50 L (BEAKER) (test code = 414) MONOCYTES ABSOLUTE COUNT (BEAKER) 0.54 K/ L 0.00-1.30 (test code = 415) EOSINOPHILS ABSOLUTE COUNT 0.00 K/ L 0.00-0.50 (BEAKER) (test code = 416) BASOPHILS ABSOLUTE COUNT (BEAKER) 0.01 K/ L 0.00-0.20 (test code = 417) IMMATURE GRANULOCYTES-RELATIVE 1 % 0-0 H PERCENT (BEAKER) (test code = 2801) POCT-GLUCOSE [id number] 09:14:00 Test Item Value Reference Range Interpretation Comments POC-GLUCOSE METER 198 mg/dL 70-110 H : [facility]) (test code [facility], = 1538) [place] [address]: Research Compliance Specialist/Techni eddie ID = [id number] for Bhavin Carvajal POCT-GLUCOSE [id number] 21:33:00 Test Item Value Reference Range Interpretation Comments POC-GLUCOSE METER 218 mg/dL 70-110 H : [facility] (BEAKER) (test code [facility], = 1538) [place] [id number]: Research Compliance Specialist/Techni eddie ID = [id number] for Roney Chapa POCT-GLUCOSE [id number] 16:23:00 Test Item Value Reference Range Interpretation Comments POC-GLUCOSE METER 225 mg/dL 70-110 H : Notified RN/MD: TESTED (BEAKER) (test code AT [facility] [address] = 1538) [place] [address]: Research Compliance Specialist/Techni eddie ID = [id number] for Felicitas Tolliver POCT-GLUCOSE [id number] 14:34:00 Test Item Value Reference Range Interpretation Comments POC-GLUCOSE METER 167 mg/dL 70-110 H : TESTED A T [facility] [address] (BEAKER) (test code [address], = 1538) [place] [id number]: Research Compliance Specialist/Techni eddie ID = [id number] for [place], [place], FLUORO, NON-SPECIFIC, UP TO 1 [id number] 13:30:00Reason for exam:->surgeryFluoroscopic unit utilized for a procedure performed in the OR. No interpretation was requested. Refer to the operative report for findings. Refer to PACS for patient radiation dose information.URINALYSIS WITHOUT [id number] 11:32:00 Test Item Value Reference Range Interpretation Comments COLOR (BEAKER) (test code = Yellow 470) CLARITY (BEAKER) (test code = Slightly Cloudy 469) SPECIFIC GRAVITY UA (BEAKER) 1.025 1.001-1.035 (test code = 468) PH UA (BEAKER) (test code = 6.0 5.0-8.0 467) PROTEIN UA (BEAKER) (test Negative Negative code = 464) GLUCOSE UA (BEAKER) (test 500 mg/dL Negative A code = 365) KETONES UA (BEAKER) (test 15 mg/dL Negative A code = 371) BILIRUBIN UA (BEAKER) (test Negative Negative code = 462) BLOOD UA (BEAKER) (test code Trace Negative A = 461) NITRITE UA (BEAKER) (test Negative Negative code = 465) LEUKOCYTE ESTERASE UA Negative Negative (BEAKER) (test code = 466) UROBILINOGEN UA (BEAKER) 0.2 mg/dL 0.2-1.0 (test code = 463) SOURCE(BEAKER) (test code = 2795) POCT-GLUCOSE [id number] 07:56:00 Test Item Value Reference Range Interpretation Comments POC-GLUCOSE METER 179 mg/dL 70-110 H : TESTED A T [facility] [address] (BEAKER) (test code [address], = 1538) [place] [address]: Research Compliance Specialist/Techni eddie ID = [id number] for Yogesh Padilla SARS-COV2/RT-PCR ([facility])2019-10-30 13:51:00 Test Item Value Reference Range Interpretation Comments SARS-COV2/RT-PCR (test code = See reflex 2937004) SARS-COV-2 PERFORMING LAB (test code CPL = 8567828) BASIC METABOLIC [id number] 09:33:00 Test Item Value Reference Range Interpretation Comments SODIUM (BEAKER) (test 138 meq/L 135-148 code = 381) POTASSIUM (BEAKER) 4.9 meq/L 3.6-5.5 Specimen slightly (test code = 379) hemolyzed CHLORIDE (BEAKER) 101 meq/L 98-106 (test code = 382) CO2 (BEAKER) (test 27 meq/L 20-29 code = 355) BLOOD UREA NITROGEN 20 mg/dL 10-26 (BEAKER) (test code = 354) CREATININE (BEAKER) 1.21 mg/dL 0.50-1.20 H Specimen slightly (test code = 358) hemolyzed GLUCOSE RANDOM 150 mg/dL 70-110 H (BEAKER) (test code = 652) CALCIUM (BEAKER) 9.3 mg/dL 8.5-10.5 (test code = 697) EGFR (BEAKER) (test INSUFFIC IENT CLINICAL code = 1092) DATA TO CALCULA TE ESTIMATED GFR. Research Compliance Specialist ID - [id number] W/PLT COUNT & AUTO [id number] 09:03:00 Test Item Value Reference Range Interpretation Comments WHITE BLOOD CELL COUNT (BEAKER) 6.9 K/ L 4.0-10.0 (test code = 775) RED BLOOD CELL COUNT (BEAKER) 4.91 M/ L 4.20-5.80 (test code = 761) HEMOGLOBIN (BEAKER) (test code = 14.6 GM/DL 13.0-16.8 410) HEMATOCRIT (BEAKER) (test code = 45.2 % 36.0-50.0 411) MEAN CORPUSCULAR VOLUME (BEAKER) 92.1 fL 82.0-99.0 (test code = 753) MEAN CORPUSCULAR HEMOGLOBIN 29.7 pg 27.0-33.0 (BEAKER) (test code = 751) MEAN CORPUSCULAR HEMOGLOBIN CONC 32.3 GM/DL 32.0-36.0 (BEAKER) (test code = 752) RED CELL DISTRIBUTION WIDTH 13.2 % 12.0-15.0 (BEAKER) (test code = 412) PLATELET COUNT (BEAKER) (test 225 K/CU MM 150-430 code = 756) MEAN PLATELET VOLUME (BEAKER) 9.3 fL 6.0-11.5 (test code = 754) NUCLEATED RED BLOOD CELLS 0 /100 WBC 0-0 (BEAKER) (test code = 413) NEUTROPHILS RELATIVE PERCENT 65 % (BEAKER) (test code = 429) LYMPHOCYTES RELATIVE PERCENT 23 % (BEAKER) (test code = 430) MONOCYTES RELATIVE PERCENT 8 % (BEAKER) (test code = 431) EOSINOPHILS RELATIVE PERCENT 3 % (BEAKER) (test code = 432) BASOPHILS RELATIVE PERCENT 1 % (BEAKER) (test code = 437) NEUTROPHILS ABSOLUTE COUNT 4.44 K/ L 1.80-8.00 (BEAKER) (test code = 670) LYMPHOCYTES ABSOLUTE COUNT 1.59 K/ L 1.48-4.50 (BEAKER) (test code = 414) MONOCYTES ABSOLUTE COUNT (BEAKER) 0.54 K/ L 0.00-1.30 (test code = 415) EOSINOPHILS ABSOLUTE COUNT 0.22 K/ L 0.00-0.50 (BEAKER) (test code = 416) BASOPHILS ABSOLUTE COUNT (BEAKER) 0.04 K/ L 0.00-0.20 (test code = 417) IMMATURE GRANULOCYTES-RELATIVE 0 % 0-0 PERCENT (BEAKER) (test code = 1473)"
[2021-10-07 06:37] LABS: Absolute Lymphocytes (CBC) 1.7 K/uL (0.7-4.9); Hematocrit 40.6 % (39.6-49.0); Lymphocytes % 33.1 % (15.3-44.8); MCV 80.3 fL (80-100); RBC Red Blood Cell Count 5.05 M/uL (4.33-5.43)
[2021-10-07] MEDS: LIDOCAINE 4% PATCH TOP SCH (06:55)
[2021-10-07] MEDS: CARBIDOPA/LEVODOPA 25/100 TAB PO SCH ×3 (06:55→19:58)
[2021-10-07] MEDS: INSULIN -REGULAR HUMAN 50 UNIT/0.5 ML ML SQ SCH ×4 (06:55→19:48)
[2021-10-07] MEDS: VITAMIN B COMPLEX 1 CAP PO SCH (06:56)
[2021-10-07] MEDS: ASPIRIN EC 81 MG TAB PO SCH (06:56)
[2021-10-07] MEDS: CLOPIDOGREL 75 MG TABLET PO SCH (06:56)
[2021-10-07] MEDS: ENSURE HIGH PROTEIN 237 ML CAN PO SCH ×2 (06:56→19:47)
[2021-10-07] MEDS: GABAPENTIN 100 MG CAP PO SCH ×2 (06:56→19:47)
[2021-10-07] MEDS: THIAMINE HCL 100 MG TABLET PO SCH (06:56)
[2021-10-07] MEDS: ENOXAPARIN 40 MG/0.4 ML SQ SCH (07:29)
[2021-10-07] MEDS: VALSARTAN 80 MG TAB PO SCH (08:00)
[2021-10-07 08:20] LABS: Albumin 3.6 g/dL (3.4-5.0); Potassium 3.9 mmol/L (3.5-5.1); Prealbumin 16.3 mg/dL (20-40)
--- NOTE | 2021-10-07 09:54 | P.RH.PN ---
Estimated Length of Stay: 14 Expected Discharge Date: 10/13/21 Discharge Disposition Plan: Home Family Support: Yes Fdc Goal: Mobility, Transfers, Self Care Vital Signs: Last Vital Signs Temp 97.6 F 10/07/21 06:54 Pulse 61 10/07/21 08:00 Resp 16 10/07/21 09:18 BP 136/67 10/07/21 08:00 Pulse Ox 97 10/07/21 09:18 Laboratory: Laboratory Last Values WBC 5.0 K/uL (4.3-10.9) D 10/07/21 06:04 RBC 5.05 M/uL (4.33-5.43) 10/07/21 06:04 Hgb 14.4 g/dL (13.6-17.9) 10/07/21 06:04 Hct 40.6 % (39.6-49.0) 10/07/21 06:04 MCV 80.3 fL (80-100) 10/07/21 06:04 MCH 28.5 pg (27.0-35.0) 10/07/21 06:04 MCHC 35.4 g/dL (32.0-36.0) 10/07/21 06:04 RDW 14.8 % (12.1-15.2) 10/07/21 06:04 Plt Count 205 K/uL (152-406) 10/07/21 06:04 MPV 7.0 fL (7.6-11.3) L 10/07/21 06:04 Neutrophils % 55.2 % (41.7-73.7) 10/07/21 06:04 Lymphocytes % 33.1 % (15.3-44.8) 10/07/21 06:04 Monocytes % 7.0 % (3.3-12.3) 10/07/21 06:04 Eosinophils % 3.7 % (0-4.4) 10/07/21 06:04 Basophils % 1.0 % (0-1.3) 10/07/21 06:04 Absolute Neutrophils 2.8 K/uL (1.8-8.0) 10/07/21 06:04 Absolute Lymphocytes 1.7 K/uL (0.7-4.9) 10/07/21 06:04 Absolute Monocytes 0.3 K/uL (0.1-1.3) 10/07/21 06:04 Absolute Eosinophils 0.2 K/uL (0-0.5) 10/07/21 06:04 Absolute Basophils 0.0 K/uL (0-0.5) 10/07/21 06:04 Platelet Estimate Adeq 09/30/21 03:54 Morphology Comment Not seen (NOT SEEN) 09/30/21 03:54 Sodium 138 mmol/L (136-145) 10/07/21 06:04 Potassium 3.9 mmol/L (3.5-5.1) 10/07/21 06:04 Chloride 105 mmol/L (98-107) 10/07/21 06:04 Carbon Dioxide 26 mmol/L (21-32) 10/07/21 06:04 Anion Gap 10.9 mEq/L (5.0-15.0) 10/07/21 06:04 BUN 14 mg/dL (7-18) 10/07/21 06:04 Creatinine 0.86 mg/dL (0.55-1.3) 10/07/21 06:04 Est GFR (CKD-EPI) 92 ml/min (=/>90) 10/07/21 06:04 Glucose 154 mg/dL (74-106) H 10/07/21 06:04 POC Glucose 144 mg/dL (65-120) H 10/07/21 06:51 Calcium 9.3 mg/dL (8.5-10.1) 10/07/21 06:04 Magnesium 2.0 mg/dL (1.8-2.4) 10/07/21 06:04 Albumin 3.6 g/dL (3.4-5.0) 10/07/21 06:04 Prealbumin 16.3 mg/dL (20-40) L 10/07/21 06:04 Urine Color Yellow (Yellow) 09/30/21 05:03 Urine Appearance Clear (Clear) 09/30/21 05:03 Urine pH 5.5 (5.0-7.0) 09/30/21 05:03 Ur Specific [place] 1.025 (1.005-1.030) 09/30/21 05:03 Glucose (UA)(Auto) 2+ (Negative) H 09/30/21 05:03 Urine Ketones Negative (Negative) 09/30/21 05:03 Urine Blood Negative (Negative) 09/30/21 05:03 Urine Nitrite Negative (Negative) 09/30/21 05:03 Urine Bilirubin Negative (Negative) 09/30/21 05:03 Urine Urobilinogen 0.2 mg/dL (0.2-1.0) 09/30/21 05:03 Ur Leukocyte Esterase Negative (Negative) 09/30/21 05:03 Urine RBC None seen /HPF (NONE SEEN) 09/30/21 05:03 Urine WBC <5 /HPF (<5) 09/30/21 05:03 Ur Squamous Epith Cells <5 /HPF (NONE SEEN) 09/30/21 05:03 Ur Urothelial Cells Cancelled 09/30/21 04:10 Calcium Oxalate Crystal Cancelled 09/30/21 04:10 Uric Acid Crystals Cancelled 09/30/21 04:10 Triple Phos Crystals Cancelled 09/30/21 04:10 Other Crystals Cancelled 09/30/21 04:10 Amorphous Sediment Cancelled 09/30/21 04:10 Glitter Cells Cancelled 09/30/21 04:10 Urine Bacteria <20 /HPF (NONE SEEN) 09/30/21 05:03 Hyaline Casts Cancelled 09/30/21 04:10 Fine Granular Casts Cancelled 09/30/21 04:10 Coarse Granular Casts Cancelled 09/30/21 04:10 Waxy Casts Cancelled 09/30/21 04:10 RBC Casts Cancelled 09/30/21 04:10 WBC Casts Cancelled 09/30/21 04:10 Urine Mucus Cancelled 09/30/21 04:10 Urine Other Cancelled 09/30/21 04:10 Urine Trichomonas Cancelled 09/30/21 04:10 Urine Yeast Cancelled 09/30/21 04:10 Ur Yeast w Hyphae Cancelled 09/30/21 04:10 Urine Yeast (Budding) Cancelled 09/30/21 04:10 Urine Sperm Cancelled 09/30/21 04:10 Urine Culture Reflexed Not needed 09/30/21 05:03 Urine Total Volume Cancelled 09/30/21 04:10 Urine Total Protein Negative (Negative) 09/30/21 05:03 SARS-CoV-2 Rap RNA(RT-PCR) Negative (NEGATIVE) 10/06/21 04:05 Smear Scan Ok (OK) 09/30/21 03:54 Weight: 215 lb 11.2 oz Wound Present: No Closed Surgical Incision Present: Yes Negative Pressure Wound Therapy Present: No Physician Update: Labs were reviewed. Bed mobility, sit to stand, transfers SBA, walked 270' x 2 with SBA. Set up for bathing, and other ADLs. Doing better with slower speech, cognitive functioning is better. Swallowing is good. Summary: Patient's care plan and terminal gauger goals have been reviewed and revised as necessary. Please see the Rehabilitation Signature page for all necessary signatures.
[2021-10-07] MEDS: ATORVASTATIN 40 MG TAB PO SCH (19:47)
[2021-10-07] MEDS: AMLODIPINE 5 MG TAB PO SCH (19:47)
[2021-10-07] MEDS: DOCUSATE NA/SENNA CONC 1 TAB PO PRN (19:58)
[2021-10-08] MEDS: ENOXAPARIN 40 MG/0.4 ML SQ SCH (07:18)
[2021-10-08] MEDS: INSULIN -REGULAR HUMAN 50 UNIT/0.5 ML ML SQ SCH ×4 (07:30→19:35)
[2021-10-08] MEDS: CLOPIDOGREL 75 MG TABLET PO SCH (07:50)
[2021-10-08] MEDS: GABAPENTIN 100 MG CAP PO SCH ×2 (07:50→19:13)
[2021-10-08] MEDS: CARBIDOPA/LEVODOPA 25/100 TAB PO SCH ×3 (07:50→19:12)
[2021-10-08] MEDS: ASPIRIN EC 81 MG TAB PO SCH (07:51)
[2021-10-08] MEDS: VITAMIN B COMPLEX 1 CAP PO SCH (07:51)
[2021-10-08] MEDS: THIAMINE HCL 100 MG TABLET PO SCH (07:51)
[2021-10-08] MEDS: VALSARTAN 80 MG TAB PO SCH (07:51)
[2021-10-08] MEDS: ENSURE HIGH PROTEIN 237 ML CAN PO SCH ×2 (07:52→19:13)
[2021-10-08] MEDS: LIDOCAINE 4% PATCH TOP SCH (09:59)
[2021-10-08] MEDS: AMLODIPINE 5 MG TAB PO SCH (19:12)
[2021-10-08] MEDS: ATORVASTATIN 40 MG TAB PO SCH (19:12)
[2021-10-08] MEDS: TRAMADOL HCL 50 MG TAB PO PRN (19:12)
[2021-10-09] MEDS: TRAMADOL HCL 50 MG TAB PO PRN ×2 (03:38→08:31)
[2021-10-09 05:37] VITALS: BMI 31.3
[2021-10-09] MEDS: INSULIN -REGULAR HUMAN 50 UNIT/0.5 ML ML SQ SCH (07:11)
[2021-10-09 07:49] VITALS: BP 134/82; TEMP 97.1
[2021-10-09] MEDS: ENOXAPARIN 40 MG/0.4 ML SQ SCH (08:00)
[2021-10-09] MEDS: ENSURE HIGH PROTEIN 237 ML CAN PO SCH (08:00)
[2021-10-09] MEDS: THIAMINE HCL 100 MG TABLET PO SCH (08:30)
[2021-10-09] MEDS: VITAMIN B COMPLEX 1 CAP PO SCH (08:30)
[2021-10-09] MEDS: CLOPIDOGREL 75 MG TABLET PO SCH (08:30)
[2021-10-09] MEDS: VALSARTAN 80 MG TAB PO SCH (08:31)
[2021-10-09] MEDS: ASPIRIN EC 81 MG TAB PO SCH (08:31)
[2021-10-09] MEDS: GABAPENTIN 100 MG CAP PO SCH (08:31)
[2021-10-09] MEDS: LIDOCAINE 4% PATCH TOP SCH (08:32)
[2021-10-09] MEDS: CARBIDOPA/LEVODOPA 25/100 TAB PO SCH (09:00)
== END 2021-10-09 10:30 | disposition home health service (06) | DRG 57 ==
LOC: 5TH 09-29 19:35
PROVIDERS: ADMIT Psychiatry & Neurology Neurology with Special Qualifications in Child Neurology; ATTEND Psychiatry & Neurology Neurology with Special Qualifications in Child Neurology
DX: I69.351 Hemiplegia and hemiparesis following cerebral infarction affecting right dominant side (principal); E11.9 Type 2 diabetes mellitus without complications; G20 Parkinson's disease; Z95.1 Presence of aortocoronary bypass graft; Z95.5 Presence of coronary angioplasty implant and graft; Z95.0 Presence of cardiac pacemaker; Z20.822 Contact with and (suspected) exposure to COVID-19
CPT/HCPCS: 36415; 70450; 80048; 81003; 81015; 82040; 82947; 83735; 84134; 85025; 87086; 87088; 92507; 92523; 97110; 97112; 97116; 97129; 97130; 97161; 97165; 97530; 97542; J1650; J1815; J2001; U0003

== ENCOUNTER 2022-01-01 20:15 | Emergency (ER) | payer OTHER ==
--- OUTSIDE RECORDS SUMMARY | 2022-01-01 20:29 | XMS REPORT | Continuity of Care Document ---
:1950 Author Organization [facility] t Address [facility] [place] [address] Care Team Providers Name Role Phone RUY BANSAL Primary Care Physician Unavailable JEFFERSON BRAGG Attending Clinician Unavailable Janell Khan MA Attending Clinician Unavailable Kd GONZALEZ, Ramon Gonzalez Attending Clinician Shree Koroma MD Attending Clinician Deshawn Flores MD Attending Clinician France Khan MD Attending Clinician Provider, Unknown Attending Clinician Unavailable Radhames RT, Maite Attending Clinician Unavailable Gilles Weeks MD Attending Clinician Teagan Patricia RN Attending Clinician Doctor Unassigned, [place] Attending Clinician Unavailable STONE ADAME Attending Clinician Unavailable Hamzah Barr DO Attending Clinician Stone Adame MD Attending Clinician Ciro GONZALEZ, Demetrio Sultana Attending Clinician [phone] JEFFERSON BRAGG Attending Clinician Unavailable SAMREEN AGARWAL Attending Clinician Unavailable JOCELYN HIGGINS Attending Clinician Unavailable JEFFERSON BRAGG Admitting Clinician Unavailable SHREE KOROMA Admitting Clinician Unavailable STONE ADAME Admitting Clinician Unavailable Stone Adame MD Admitting Clinician RUY BANSAL Admitting Clinician Unavailable Payers Payer Name Policy Type Policy Number Effective Date Expiration Date Jessie MUÑOZ PPO OPEN [facility] [id number] NAP Problems Condition Condition Condition Status Onset Resolution Last Treating Co mments Source Name Details Category Date Date Treatment Clinician Date Cerebrovas Cerebrovas Disease Active M ethodi cular cular 7 st accident accident 00:00: Hospit a (CVA) (CVA) 00 l Sick sinus Sick sinus Disease Active Overview : Methodi syndrome syndrome 09-[address] 00:00: g of this Hospita 00 note l might be different from the original. Added automatic ally from request for surgery [id number] Dyslipidem Dyslipidem Disease Active U nivers ia ia 3-21 ity of 00:00: [place] [facility] Orthostati Orthostati Disease Active U nivers c c 3-21 ity of dizziness [place] Coronary Coronary Disease Active Unive rs artery artery 3-21 ity of disease disease 00:00: [place] involving involving 00 Medi tony coronary coronary Branch bypass bypass graft of graft of tribe tribe heart heart without without angina angina pectoris pectoris Essential Essential Disease Active Uni vers hypertensi hypertensi 3-21 it y of on on 00:00: [place] 00 Medical Branch COVID-19 COVID-19 Disease Active Unive rs 3-20 ity of 00:00: [place] 00 Medical Branch Memory Memory Disease Active [...] Active M ethodi s disease s disease 5 st 00:00: Hospita 00 l Malignant Malignant Disease Active Met hodi neoplasm neoplasm 9-13 st metastatic metastatic 00:00: Ho spita 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 00 l Chronic Chronic Disease Active Methodi midline midline 9 st thoracic thoracic 00:00: Hospit a back pain back pain 00 l Allergies, Adverse Reactions, Alerts Allergy Allergy Status Severity Reaction(s) Onset Inactive Treating Comm ents Source Name Type Date Date Clinician NO KNOWN [facility] Drug Active [facility] of [facility] Family History Family Member Diagnosis Comments Start Date Stop Date Source Natural father [facility] Natural mother [facility] Social History Social Habit Start Date Stop Date Quantity Comments Source History SDOH [facility] Alcohol Comment Medical C enter History SDOH [facility] Alcohol Std Medical Cente r Drinks History SDOH [facility] Alcohol Binge Medical Krissy ter Exposure to Not sure [facility]-CoV-2 [facility] (event) Branch History of Current smoker [facility] tobacco use Hospital Alcohol intake 2021-10-12 2021-10-12 Ex-drinker [facility] 00:00:00 00:00:00 (finding) Hospital Tobacco use and 2021-09-21 2021-09-21 User of smokeless [facility] exposure 00:00:00 00:00:00 tobacco Hospital History SDOH 2019-10-25 2019-10-[address] [facility] Alcohol Frequency 00:00:00 00:00:00 [facility] Sex Assigned At [address] [facility] 00:00:00 00:00:00 [facility] Smoking Status Start Date Stop Date Source Ex-smoker 2021-09-21 00:00:00 2021-09-21 00:00:00 [facility] Never smoker [facility] Medications Ordered Filled Start Stop Current Ordering Indication Dosage Frequency Signature Comments Components Source Medication Medication Date Date Medication? Clinician (SIG) Name Name acetaminoph Yes 500mg Q6H Take 500 M ethodi en 7-[address] (TYLENOL) 13:02: mouth Hospita 500 MG 17 every 6 l tablet (six) hours as needed for mild pain. eszopiclone Yes 3mg QD Take 3 mg M ethodi (LUNESTA) 3 7-[address] mg tablet 13:01: nightly. [facility] 49 Take l immediatel y before bedtime empaglifloz Yes 1{tbl} QD Take 1 Me thodi in-linaglip 7- tablet by st tin 13:01: mouth Hospita (Glyxambi) 49 daily. l 25-5 mg tablet triptorelin Yes Q90D Inject Meth valencia pamoate - into the st (TRELSTAR 13:01: shoulder, Hos efren DEPOT IM) 49 thigh, or l buttocks every 3 (three) months. traMADoL Yes [id number] 50mg Q6H Take 50 mg Me thodi (ULTRAM) 50 7-[address] mg tablet 13:01: every 6 Hospi ta 49 (six) l hours as needed for moderate pain .acute pain. valsartan Yes 80mg QD Take 80 mg Me thodi (DIOVAN) 80 7-[address] MG tablet 13:01: daily. Hospit a 49 l isosorbide 0 Yes 30mg QD Take 30 mg M ethodi mononitrate 7-[address] (IMDUR) 30 13:01: daily. Hospi ta MG 24 hr 49 l tablet simvastatin 0 Yes 80mg QD Take 80 mg Methodi (ZOCOR) 80 7-[address] MG tablet 13:01: nightly. [facility] 49 l citalopram 0 Yes 40mg QD Take 40 mg M ethodi (CeleXA) 40 7-[address] MG tablet 13:01: daily. Hospit a 49 l olmesartan 0 Yes 20mg Q.5D Take 1 Metho di (BENICAR) 7-13 tablet (20 st 20 MG 00:00: mg total) Hospita tablet 00 by mouth 2 l (two) times a day. Hold if SBP is less than 120 clopidogrel 2021-0 2021- No 75mg QD Take 75 mg Methodi (PLAVIX) 75 08 07-[address] mg tablet 09:14: 00:00 daily. Hospi ta 12 :00 l clopidogreL 0 Yes 75mg QD Take 1 Meth valencia (PLAVIX) 75 -08 tablet (75 st mg tablet 00:00: mg total) Hos efren 00 by mouth l daily. aspirin Yes 81mg QD Take 1 Methodi (ECOTRIN) -08 tablet (81 st 81 MG 00:00: mg total) Hospita enteric 00 by mouth l coated daily. tablet atorvastati Yes 40mg QD Take 1 Meth valencia n (LIPITOR) -08 tablet (40 st 40 mg 00:00: mg total) Hospita tablet 00 by mouth l nightly. B Yes 1{tbl} QD Take 1 Methodi complex-vit [address] nix 00:00: mouth Hospita C-folic 00 daily. l acid (FOLBEE PLUS 5 MG) 5 mg tablet per tablet insulin Yes 0U [id number] Inject Ms jannethvalencia lispro 09-24 [id number] 0-12 Units s t (ADMELOG) 00:00: 3D under the Hos efren 100 unit/mL 00 skin 3 l injection (three) times a day before meals. lidocaine Yes 1{patch Q24H Place 1 Me thodi (LIDODERM) 09-24 } patch on st 5 % 00:00: the skin Hospita 00 daily. l Remove & Discard patch within 12 hours or as directed by MD reilly Yes 50mg QD Take 0.5 Metho di mononitrate -[address] , vit B1, 00:00: (50 mg Hospit a (B-1) 100 00 total) by l mg tablet mouth daily. traMADol 2021- [place] [id number] 50mg Q6H Take 50 mg M ethodi (ULTRAM) 50 09-[address] mg tablet 17:22: 00:00 every 6 [facility] 12 :00 (six) l hours as needed for moderate pain .Acute Pain. ondansetron 2021- No Take by Ms thodi (ZOFRAN) 8 09-[address] MG tablet 17:21: 00:00 Hospita 55 :00 l leuprolide 2021- No Lupron Meth valencia (LUPRON 09-[address] DEPOT, 3 17:21: 00:00 11.25 mg [facility] MONTH,) 32 :00 (3 month) l 11.25 mg intramuscu injection lar syringe kit ONCE A MONTH isosorbide 2021- No 30mg QD Take 30 mg Methodi mononitrate 09-[address] (IMDUR) 30 17:21: 00:00 daily. [facility] MG 24 hr 24 :00 l tablet gabapentin 2021- No 600mg QD Take 600 M ethodi (NEURONTIN) 09-21 07-[address] 600 mg 17:21: 00:00 mouth Hospita tablet 17 :00 nightly. l gabapentin 2021- No 300mg Q.5D Take 300 M ethodi (NEURONTIN) 09-21 07-[address] 300 mg 17:21: 00:00 mouth 2 Hospita capsule 07 :00 (two) l times a day. One tab in AM. citalopram 2021- No 20mg QD Take 20 mg Methodi (CeleXA) 20 09-21- by mouth st MG tablet 17:20: 00:00 every Hospit a 40 :00 morning. l buPROPion 2021- No 300mg QD Take 300 Me thodi XL 09-21 07-[address] (WELLBUTRIN 17:19: 00:00 mouth [facility] XL) 300 MG 41 :00 every l 24 hr morning. tablet carbidopa-l 2020-03 Yes TAKE 3 Meth valencia [...] First dose [place] mg 00 on [facility] 06/06/20 at Branch 2100, Until Discontinu ed, Routine empaglifloz Yes 1{tbl} Take 1 Un everette in-linaglip 3-20 tablet by ity of tin 19:26: mouth [place] (GLYXAMBI) daily. Medical 25-5 mg Tab Branch clopidogreL 0 Yes 75mg Take 75 mg Univers 75 mg 3-20 by mouth ity of tablet 19:26: daily. [address] gabapentin 0 Yes 300mg Take 300 Un everette 300 mg 3-20 mg by ity of capsule 19:26: mouth 3 [place] [address] (three) Medical times [place] daily. isosorbide Yes 30mg Take 30 mg U nivers mononitrate 3-20 by mouth. ity of 30 mg 24 hr 19:26: [address] simvastatin Yes Take by Uni vers 80 mg 3-20 mouth at ity of tablet 19:26: bedtime. [address] carbidopa-l Yes 3{tbl} Take 3 Un eve[place] evodopa 3-20 tablets by ity of 25-100 mg 19:26: mouth 3 [facility] 49 (three) Medical times [place] daily. predniSONE Yes 50mg Take 50 mg U nivers 50 mg 3-20 by mouth ity of tablet 19:26: daily. [address] vilazodone Yes Take by Univ ers (VIIBRYD) 3-20 mouth. ity of 10 mg Tab 19:26: [address] eszopiclone 2021-0 Yes 3mg Take 3 mg U nivers 3 mg tablet 3-20 by mouth ity of 19:26: at [place] [address] bedtime. Medical Branch melatonin Yes Take by Unive rs 10 mg Tab 3-20 mouth. ity of 19:26: [place] [address] Medical Branch empaglifloz Yes 1{tbl} Take 1 Un everette in-linaglip 3-20 tablet by ity of tin 19:26: mouth [place] (GLYXAMBI) 49 daily. Medical 25-5 mg Tab Branch clopidogreL 0 Yes 75mg Take 75 mg Univers 75 mg 3-20 by mouth ity of tablet 19:26: daily. [place] [address] Medical Branch gabapentin 0 Yes 300mg Take 300 Un everette 300 mg 3-20 mg by ity of capsule 19:26: mouth 3 [place] [address] (three) Medical times Branch daily. isosorbide Yes 30mg Take 30 mg U nivers mononitrate 3-20 by mouth. ity of 30 mg 24 hr 19:26: [place] [address] Medical Branch simvastatin Yes Take by Uni vers 80 mg 3-20 mouth at ity of tablet 19:26: bedtime. [place] [address] Medical Branch carbidopa-l Yes 3{tbl} Take 3 Un everette evodopa 3-20 tablets by ity of 25-100 mg 19:26: mouth 3 [place] tablet 49 (three) Medical times Branch daily. predniSONE Yes 50mg Take 50 mg U nivers 50 mg 3-20 by mouth ity of tablet 19:26: daily. [place] [address] Medical Branch vilazodone Yes Take by Univ ers (VIIBRYD) 3-20 mouth. ity of 10 mg Tab 19:26: [place] [address] Medical Branch eszopiclone Yes 3mg Take 3 mg U nivers 3 mg tablet 3-20 by mouth ity of 19:26: at [place] [address] bedtime. Medical Branch melatonin Yes Take by Unive rs 10 mg Tab 3-20 mouth. ity of 19:26: [place] [address] Medical Branch empaglifloz Yes 1{tbl} Take 1 Un everette in-linaglip 3-20 tablet by ity of tin 19:26: mouth [place] (GLYXAMBI) 49 daily. Medical 25-5 mg Tab Branch clopidogreL 0 Yes 75mg Take 75 mg Univers 75 mg 3-20 by mouth ity of tablet 19:26: daily. [place] [address] Medical Branch gabapentin 0 Yes 300mg Take 300 Un everette 300 mg 3-20 mg by ity of capsule 19:26: mouth 3 [place] [address] (three) Medical times Branch daily. isosorbide 0 Yes 30mg Take 30 mg U nivers mononitrate 3-20 by mouth. ity of 30 mg 24 hr 19:26: [place] [address] Medical Branch simvastatin 0 Yes Take by Uni vers 80 mg 3-20 mouth at ity of tablet 19:26: bedtime. [place] [address] Medical Branch carbidopa-l Yes 3{tbl} Take 3 Un eve[place] evodopa 3-20 tablets by ity of 25-100 mg 19:26: mouth 3 [place] tablet (three) Medical times [place] daily. predniSONE 0 Yes 50mg Take 50 mg U nivers 50 mg 3-20 by mouth ity of tablet 19:26: daily. [place] [address] Medical Branch vilazodone 0 Yes Take by [facility] ers (VIIBRYD) 3-20 mouth. ity of 10 mg Tab 19:26: [place] [address] Medical Branch eszopiclone 0 Yes 3mg Take 3 mg U nivers 3 mg tablet 3-20 by mouth ity of 19:26: at [place] [address] bedtime. Medical Branch melatonin 0 Yes Take by Unive rs 10 mg Tab 3-20 mouth. ity of 19:26: [place] [address] Medical Branch empaglifloz 0 Yes 1{tbl} Take 1 Un eve[place] in-linaglip 3-20 tablet by ity of tin 19:26: mouth [place] (GLYXAMBI) 49 daily. Medical 25-5 mg Tab Branch clopidogreL 2020-0 Yes 75mg Take 75 mg Univers 75 mg 3-20 by mouth ity of tablet 19:26: daily. [place] [address] Medical Branch gabapentin 0 Yes 300mg Take 300 Un everette 300 mg 3-20 mg by ity of capsule 19:26: mouth 3 [place] [address] (three) Medical times Branch daily. isosorbide 0 Yes 30mg Take 30 mg U nivers mononitrate 3-20 by mouth. ity of 30 mg 24 hr 19:26: [address] Branch simvastatin Yes Take by Uni vers 80 mg 3-20 mouth at ity of tablet 19:26: bedtime. [address] Branch carbidopa-l Yes 3{tbl} Take 3 Un [place] evodopa 3-20 tablets by ity of 25-100 mg 19:26: mouth 3 [facility] 49 (three) Medical times Branch daily. predniSONE 0 Yes 50mg Take 50 mg U nivers 50 mg 3-20 by mouth ity of tablet 19:26: daily. [address] Branch vilazodone Yes Take by Univ ers (VIIBRYD) 3-20 mouth. ity of 10 mg Tab 19:26: [address] eszopiclone Yes 3mg Take 3 mg U nivers 3 mg tablet 3-20 by mouth ity of 19:26: at [place] [address] bedtime. Medical Branch melatonin Yes Take by Unive rs 10 mg Tab 3-20 mouth. ity of 19:26: [address] olmesartan 0 2020- No 20mg Take 20 mg Univers 20 mg 3-20 03-20 by mouth. ity of tablet 17:28: 00:00 [place] 53 :00 [facility] Branch predniSONE Yes 50mg 50 mg, Unive rs (DELTASONE) 3-20 Oral, ity of tablet 50 14:00: DAILY, [place] mg 00 First dose Medical on [facility] 06/06/20 at 0900, Until Discontinu ed, Routine isosorbide Yes 30mg 30 mg, Unive rs mononitrate 3-20 Oral, ity of (IMDUR) 24 14:00: DAILY, [facility] tablet 00 First dose Medi tony 30 mg on [facility] 06/06/20 at 0900, Until Discontinu ed, Routine clopidogreL Yes 75mg 75 mg, Univ ers (PLAVIX) 3-20 Oral, ity of tablet 75 14:00: DAILY, [place] mg 00 First dose Medical on [facility] 06/06/20 at 0900, Until Discontinu ed, Routine ergocalcife Yes [id number] 50,000 Un everette rol 3-20 Units, ity of (vitamin 14:00: Oral, [place] d2) 00 QWEEKLY, Medical (CALCIFEROL First dose Br anch ) capsule on [facility] 50,000 06/06/20 at Units 0900, Until Discontinu ed, Routine carbidopa-l 202-0 Yes 2{tbl} 2 tablet, Univers evodopa 3-20 Oral, TID, ity of (SINEMET-25 13:00: First dose [place] /100) 00 on [facility] Medical 25-100 mg 06/06/20 at Bran ch tablet 2 0800, tablet Until Discontinu ed, Routine gabapentin 2020-0 Yes 300mg 300 mg, Uni vers (NEURONTIN) 3-20 Oral, TID, it y of capsule 300 13:00: First dose [place] mg 00 on [facility] Medical 06/06/20 at Branch 0800, Until Discontinu ed, Routine zinc 2020-0 Yes 220mg 220 mg, Univers sulfate 3-20 Oral, TID, ity of (ORAZINC) 13:00: First dose [place] capsule 220 00 on [facility] Medica l mg 06/06/20 at Branch 0800, Until Discontinu ed, Routine ascorbic 2020-0 Yes 500mg 500 mg, Unive rs acid 3-20 Oral, BID, ity of (vitamin C) 13:00: First dose [place] (VITAMIN C) 00 on [facility] Medica l tablet 500 06/06/20 at Bra nc mg 0800, Until Discontinu ed, Routine Sliding 2020-0 Yes Subcutaneo Univ ers Scale 3-20 us, AC, ity of Insulin-Reg 12:30: First dose [place] ular + Fsbg 00 on [facility] Medica l Testing 06/06/20 at Branch 0730, Until Discontinu ed, Routine melatonin 2020-0 Yes 9mg 9 mg, Univers (MELATIN) 3-20 Oral, ity of tablet 9 mg 11:42: QHSPRN, [place] 56 Starting Medical [facility] Branch 06/06/20 at 0642, Until Discontinu ed, Insomnia heparin 2020-0 Yes 5000U 5,000 Univers (porcine) 3-20 Units, ity of injection 11:00: Subcutaneo [place] 5,000 Units 00 us, Q8H, Medi tony First dose Branch on [facility] 06/06/20 at 0600, Until Discontinu ed, Routine NaCl 0.9% 2020- No 1000mL at 125 Uni vers (NS) IV 3-20 03-20 mL/hr, IV ity of infusion 10:15: 11:09 Infusion, [place] as 1,000 mL 00 :00 ONCE, 1 Medical dose, Sat Branch 06/06/20 at 0515, Routine glucagon 2020- Yes 1mg 1 mg, Univers (GLUCAGEN 3-20 Intramuscu ity of DIAGNOSTIC 09:08: lar, PRN, [place] KIT) 47 Starting Medical injection 1 Sat Branch mg 06/06/20 at 0408, Until Discontinu ed, ANITA, Blood Glucose < or = 70 mg/dL and patient is unable to swallow or has mental changes. dextrose 50 Yes 25mL 25 mL, Univ ers % [...] IV Push, ity of (PF)) 09:08: Q6HPRN, [place] injection 4 00 Starting Medi tony mg Sat Branch 06/06/20 at 0408, Until Discontinu ed, Routine, Nausea and Vomiting (N/V) traMADoL 2020- No 50mg 50 mg, Univer s (ULTRAM) 06-06 03-22 Oral, ity of tablet 50 09:07: 09:06 Q8HPRN, [place] mg 55 :55 Starting Medical Sat Branch 06/06/20 at 0407, Until 06/08/20 at 0406, Routine, Pain (scale 4-6) acetaminoph 0 Yes 650mg 650 mg, Un everette en 3-20 Oral, ity of (TYLENOL) 09:07: Q6HPRN, [place] tablet 650 53 Starting Medic al mg Sat Branch 06/06/20 at 0407, Until Discontinu ed, Routine, Pain (scale 1-3) NaCl 0.9% 2020- No 1000mL at 999 Uni vers (NS) bolus 3-20 03-20 mL/hr, ity of infusion 05:30: 05:11 1,000 mL, [place] as 1,000 mL 00 :00 IV Medical Piggyback, Branch ONCE, 1 dose, 06/06/20 at 0030, STAT ascorbic 2020-0 Yes [id number] 500mg Take 1 U nivers acid, 3-20 tablet by ity of vitamin C, 00:00: mouth 2 [place] 500 mg 00 (two) Medical tablet times Branch daily. Cholecalcif 2020-0 Yes [id number] 1000U Take 1 Univers arjun, 3-20 capsule by ity of Vitamin D3, 00:00: mouth [place] 25 mcg 00 daily. Medical (1,000 Branch unit) capsule zinc 2020-0 Yes [id number] 220mg Take 1 Unive rs sulfate 220 3-20 capsule by it y of (50) mg 00:00: mouth 3 [place] capsule 00 (three) Medical times Branch daily. ascorbic 2020-0 Yes [id number] 500mg Take 1 U nivers acid, 3-20 tablet by ity of vitamin C, 00:00: mouth 2 [place] 500 mg 00 (two) Medical tablet times Branch daily. Cholecalcif 2020-0 Yes [id number] 1000U Take 1 Univers arjun, 3-20 capsule by ity of Vitamin D3, 00:00: mouth [place] 25 mcg 00 daily. Medical (1,000 Branch unit) capsule zinc 2020-0 Yes [id number] 220mg Take 1 Unive rs sulfate 220 3-20 capsule by it y of (50) mg 00:00: mouth 3 [place] capsule 00 (three) Medical times Branch daily. ascorbic 2020-0 Yes [id number] 500mg Take 1 U nivers acid, 3-20 tablet by ity of vitamin C, 00:00: mouth 2 [place] 500 mg 00 (two) Medical tablet times Branch daily. Cholecalcif 2020-0 Yes [id number] 1000U Take 1 Univers arjun, 3-20 capsule by ity of Vitamin D3, 00:00: mouth [place] 25 mcg 00 daily. Medical (1,000 Branch unit) capsule zinc 2020-0 Yes [id number] 220mg Take 1 Unive rs sulfate 220 3-20 capsule by it y of (50) mg 00:00: mouth 3 [place] capsule 00 (three) Medical times Branch daily. ascorbic Yes [id number] 500mg Take 1 U nivers acid, 3-20 tablet by ity of vitamin C, 00:00: mouth 2 [place] 500 mg 00 (two) Medical tablet times Branch daily. Cholecalcif Yes [id number] 1000U Take 1 Univers arjun, 3-20 capsule by ity of Vitamin D3, 00:00: mouth [place] 25 mcg 00 daily. Medical (1,000 Branch unit) capsule zinc Yes [id number] 220mg Take 1 Unive rs sulfate 220 3-20 capsule by it y of (50) mg 00:00: mouth 3 [place] capsule 00 (three) Medical times Branch daily. acetaminoph 2021- No [id number] 650mg Take 2 Univers en 325 mg 3-20 03-21 tablets by ity of tablet 00:00: 04:59 mouth [place] 00 :00 every 6 Medical (six) Branch hours as needed for Pain (scale 1-3) or Temp > 38.5 C. acetaminoph 2021- No [id number] 650mg Take 2 Univers en 325 mg 3-20 03-21 tablets by ity of tablet 00:00: 04:59 mouth [place] 00 :00 every 6 Medical (six) Branch hours as needed for Pain (scale 1-3) or Temp > 38.5 C. acetaminoph 2021- No [id number] 650mg Take 2 Univers en 325 mg 3-20 03-21 tablets by ity of tablet 00:00: 04:59 mouth [place] 00 :00 every 6 Medical (six) Branch hours as needed for Pain (scale 1-3) or Temp > 38.5 C. acetaminoph 2021- No [id number] 650mg Take 2 Univers en 325 mg 3-20 03-21 tablets by ity of tablet 00:00: 04:59 mouth [place] 00 :00 every 6 Medical (six) Branch hours as needed for Pain (scale 1-3) or Temp > 38.5 C. ondansetron 2019-03 Yes Take by Met carmen SANTOYO) 8 2-[address] MG tablet 13:55: Hospita 46 l ondansetron 2019-03 Yes Take by Met hodi (ZOFRAN) 8 2-[address] MG tablet 13:55: [...] 0.5MG EVERY WEEK FOR 4 WEEKS Ozempic 2019-03- No INJECT Methodi 0.25 mg or 2- 07-[address] 0.5 mg(2 00:00: 00:00 UNDER THE Hos efren mg/1.5 mL) 00 :00 SKIN EVERY l pen WEEK FOR 4 [...] hr 20 l tablet traMADol 2019-03 Yes [id number] 50mg Q6H Take 50 mg Me thodi [...] hr 20 l tablet traMADol 2019-03 Yes [id number] 50mg Q6H Take 50 mg Me thodi [...] lar syringe kit ONCE A MONTH gabapentin 2019- Yes 600mg QD Take 600 Me thodi (NEURONTIN) 0-[address] 600 mg 10:22: mouth Hospita tablet 19 nightly. l gabapentin 2019-1 Yes 600mg QD Take 600 Me thodi (NEURONTIN) 0-[address] 600 mg 10:22: mouth Hospita tablet 19 nightly. l buPROPion 2020-0 Yes 300mg QD Take 300 [...] 16:16: daily. Medical tablet 27 Center citalopram 2019-0 Yes 20mg QD Take [address] (CELEXA) 20 8-19 by mouth Luke s MG tablet 16:16: daily. Medica l 27 Center clopidogreL 2019-0 Yes 75mg QD Take [address] (PLAVIX) 75 8-19 by mouth Luke s mg tablet 16:16: daily. Medica l 27 Center empaglifloz 2019-0 Yes 1{tbl} QD Take [address] in-linaglip 8-19 tablet by Mathew es tin 16:16: mouth Medical (GLYXAMBI) 27 daily. Center 10-5 mg per tablet simvastatin 2020-0 Yes 80mg QD Take [address] (ZOCOR) 80 8-19 by mouth [facility] MG tablet 16:16: nightly. Medi tnoy 27 Center gabapentin 2020-0 Yes 300mg Q.[id number] Take [address] (NEURONTIN) 8-19 [id number] mg by L ukes 300 MG 16:16: [...] tony 27 Center gabapentin 2020-0 Yes 300mg Q.[id number] Take [address] (NEURONTIN) 8-19 [id number] mg by L ukes 300 MG 16:16: [...] by [facility]ukes 16:16: mouth Medical 27 daily. [place] carbidopa-l 2019-0 2020- No 3{tbl} Q.[id number] Take 3 Methodi evodopa 6- 05-[id number] (Sinemet) 00:00: 00:00 3D mouth 3 [facility] 25-100 mg 00 :00 (three) l per tablet times a day. carbidopa-l 2019-0 2020- No 3{tbl} Q.[id number] Take 3 Methodi evodopa 6- 05-[id number] (Sinemet) 00:00: 00:00 3D mouth 3 [facility] 25-100 mg 00 :00 (three) l per tablet times a day. olmesartan 2020-0 Yes Methodi (BENICAR) 3-25 st 20 MG 00:00: Hospita tablet 00 l olmesartan 2020-0 Yes Methodi (BENICAR) 3-25 st 20 MG 00:00: Hospita tablet 00 l olmesartan 2020-0 2022- No 20mg QD Take 20 mg Methodi (BENICAR) 3 07-[address] 20 MG 00:00: 00:00 daily. Hospita tablet 00 :00 l predniSONE 2019- Yes 1 tab in Met hodi (DELTASONE) 1-21 AM, [address] 5 mg tablet 00:00: in PM Hospi ta 00 l predniSONE 2018- Yes 1 tab in Met hodi (DELTASONE) 1-21 AM, [address] 5 mg tablet 00:00: in PM Hospi ta 00 l predniSONE 2018-2- No [address] [facility] 04-09 07-05 AM, [address] 5 mg tablet 00:00: 00:00 in PM [facility] 00 :00 l Immunizations Ordered Immunization Filled Immunization Date Status Commen ts Source Name Name PFIZER COVID-19 MRNA 2020-05-17 Completed Meth odist VACCINATION 00:00:00 Hospital PFIZER COVID-19 MRNA 2020-05-17 Completed Meth odist VACCINATION 00:00:00 [facility] PFIZER COVID-19 MRNA 2020-05-17 Completed Meth odist [...] kg Systolic blood 2020-06-06 18:01:00 116 mm[Hg] Univer sity of pressure [facility] [facility] Diastolic blood 2020-06-06 18:01:00 78 mm[Hg] Unive rsity of pressure [facility] Heart rate 2020-06-06 18:01:00 88 /min [facility] Respiratory rate 2020-06-06 17:57:00 18 /min [facility] Oxygen saturation in 2020-06-06 16:50:00 95 /min [facility] Arterial blood by [facility] Pulse oximetry [place] Body temperature 2020-06-06 16:34:[address] [facility] Body height 2020-06-06 09:17:00 177.8 cm [facility] Body weight 2020-06-06 09:17:00 108.5 kg [facility] BMI 2020-06-06 09:17:00 34.32 kg/m2 [facility] HEIGHT 2019-10-21 00:00:00 177.8 cm WEIGHT 2019-10-21 00:00:00 120.203 kg Body height 2021-10-12 18:02:00 177.8 cm [facility] Body weight 2021-10-12 18:02:00 97.523 kg [facility] BMI 2021-10-12 18:02:00 30.85 kg/m2 [facility] Systolic blood 2021-09-29 16:58:01 133 mm[Hg] [facility] pressure Diastolic blood 2021-09-29 16:58:01 72 mm[Hg] [facility] pressure Heart rate 2021-09-29 16:58:01 73 /min [facility] Body temperature 2021-09-29 16:58:01 36.17 Elizabet [facility] Respiratory rate 2021-09-29 16:58:01 18 /min [facility] Oxygen saturation in 2021-09-29 16:58:01 91 /min [facility] Arterial blood by Pulse oximetry Procedures Procedure Date / Time Performing Clinician Source Performed POC GLUCOSE 2021-09-29 16:57:00 Deshawn Flores COVID-19 QUALITATIVE 2021-09-29 15:52:00 Deshawn Flores [facility] RT-PCR POC GLUCOSE 2021-09-29 13:19:00 Deshawn Flores HC COMPLETE BLD COUNT 2021-09-29 09:29[facility] BASIC METABOLIC PANEL 2021-09-29 09:29:00 [facility] ESTIMATED GFR 2021-09-29 09:29:00 [facility] 2021-09-29 01:18:00 Laine, Iti Bahai Ho spital POC GLUCOSE 2021-09-28 20:07:00 Laine, Iti Bahai Ho spital ECG PRE/POST OP 2021-09-28 19:07:55 Corrine [facility] XR CHEST 1 VW PORTABLE 2021-09-28 19:05:15 [facility] INSERT ELECTRODE 2021-09-28 18:28:03 [facility] PACEMAKER OR DEFIBRILLATOR POC GLUCOSE 2021-09-28 16:19:00 Laine, Iti Bahai Ho spital ABO AND RH CONFIRMATION 2021-09-28 16:02:00 [facility] BY PROTOCOL POC GLUCOSE 2021-09-28 13:04:00 Laine, Iti Bahai Ho spital TYPE AND SCREEN 2021-09-28 10:34:00 [employer] BASIC METABOLIC PANEL 2021-09-28 10:25:00 [facility] HC COMPLETE BLD COUNT 2021-09-28 10:25:00 [facility] W/AUTO DIFF PROTHROMBIN TIME WITH INR 2021-09-28 10:25:00 GilletteDharmesh perez [facility] ESTIMATED GFR 2021-09-28 10:25:00 [employer] POC GLUCOSE 2021-09-28 01:34:00 Laine, Iti Bahai [facility] POC GLUCOSE 2021-09-27 22:10:00 Laine, Iti [facility]ai [facility] sp[facility] POC GLUCOSE 2021-09-27 16:55:00 Laine, Iti [facility] POC GLUCOSE 2021-09-27 01:42:00 Laine, Iti [facility]ai [facility] sp[facility] POC GLUCOSE 2021-09-26 22:25:00 Laine, Iti [facility]ai [facility] ECG 12-LEAD 2021-09-26 18:09:57 Laine, Iti Bahai Ho spital POC GLUCOSE 2021-09-26 15:50:00 Laine, Iti [facility] POC GLUCOSE 2021-09-26 12:40:00 Laine, Iti Bahai [facility] sp[facility] POC GLUCOSE 2021-09-26 01:45:00 Laine, Iti [facility]ai [facility] POC GLUCOSE 2021-09-25 21:25:00 Laine, Iti [facility]ai [facility] POC GLUCOSE 2021-09-25 16:35:00 Laine, Iti Bahai Ho spital POC GLUCOSE 2021-09-25 01:40:00 Laeeq, [facility] POC GLUCOSE 2021-09-24 21:30:00 Laeeq, [facility] POC GLUCOSE 2021-09-24 16:36:00 Laeeq, [facility] POC GLUCOSE 2021-09-24 12:29:00 Laeeq, [facility] POC GLUCOSE 2021-09-24 01:35:00 Laeeq, [facility] POC GLUCOSE 2021-09-23 22:13:00 Laeeq, [facility] POC GLUCOSE 2021-09-23 17:13:00 Laeeq, [facility] COVID-19 SEROLOGY PATIENT 2021-09-23 08:41:00 Kan Guillen [facility] SURVEILLANCE [facility] COMPLETE BLD COUNT 2021-09-23 08:41:00 Laeeq, [facility] W/AUTO DIFF COMPREHENSIVE METABOLIC 2021-09-23 08:41:00 Laeeq, [facility] PANEL MAGNESIUM LEVEL 2021-09-23 08:41:00 Laeeq, [facility] PHOSPHORUS LEVEL 2021-09-23 08:41:00 Laeeq, [facility] ESTIMATED GFR 2021-09-23 08:41:00 Laeeq, [facility] COVID-19 ANTI-SPIKE IGG 2021-09-23 08:41:00 Kan Guillen [facility] ANTIBODY TITER Rolando POC GLUCOSE 2021-09-23 01:51:00 Laeeq, [facility] TTE COMPLETE, WO 2021-09-22 19:25:00 Laeeq, [facility] CONTRAST, W DOPPLER ([id number]) POC GLUCOSE 2021-09-22 13:07:00 Laeeq, [facility] MRI BRAIN WO CONTRAST 2021-09-22 11:01:34 Laeeq, [facility] HC COMPLETE BLD COUNT 2021-09-22 10:09:00 Laeeq, [facility] W/AUTO DIFF COMPREHENSIVE METABOLIC 2021-09-22 10:09:00 Laeeq, [facility] PANEL MAGNESIUM LEVEL 2021-09-22 10:09:00 Laeeq, [facility] PHOSPHORUS LEVEL 2021-09-22 10:09:00 Laeeq, [facility] ESTIMATED GFR 2021-09-22 10:09:00 Laeeq, [facility] US CAROTID DUPLEX 2021-09-22 03:47:[facility] POC GLUCOSE 2021-09-22 01:51:00 Laeeq, [facility] POC GLUCOSE 2021-09-21 22:20:00 Laeeq, [facility] LACTIC ACID LEVEL, SEPSIS 2021-09-21 19:31:00 Laeeq, [facility] - NOW AND REPEAT 2X EVERY 3 HOURS AMMONIA LEVEL 2021-09-21 19:31:00 Laeeq, [facility] VITAMIN B12 LEVEL 2021-09-21 19:31:00 Laeeq, [facility] THYROID STIMULATING 2021-09-21 19:31:00 Laeeq, [facility] HORMONE VITAMIN B1 LEVEL, WHOLE 2021-09-21 19:31:00 Laeeq, [facility] BLOOD SYPHILIS TREPONEMA SCREEN 2021-09-21 19:31:00 Laeeq, [facility] WITH RPR CONFIRMATION (REVERSE ALGORITHM) TROPONIN T 2021-09-21 19:31:00 Laeeq, [facility] VITAMIN D 25 HYDROXY 2021-09-21 19:24:00 Lae, [facility] LEVEL CT ANGIOGRAM NECK W WO 2021-09-21 18:32:06 Lae, [facility] CONTRAST CT ANGIOGRAM HEAD W WO 2021-09-21 18:30:49 [facility], [facility] CONTRAST HEMOGLOBIN A1C 2021-09-21 17:59:00 Lae, [facility] COVID-19 QUALITATIVE 2021-09-21 17:59:00 Ramon Yi [facility] RT-PCR POC GLUCOSE 2021-09-21 17:58:00 Laeeq, [facility] VENOUS BLOOD GAS 2021-09-21 17:54:00 Lae, [facility] LIPID PANEL 2021-09-21 17:52:00 Lae, [facility] XR CHEST 1 VW PORTABLE 2021-09-21 17:32:48 Ramon Yi [facility] ECG ED PRELIMINARY 2021-09-21 17:16:17 Ramon Yi [facility] INTERPRETATION [facility], E/M 2021-09-21 17:16:17 Ramon Yi [facility] 30-[address] HEAD WO CONTRAST 2021-09-21 16:37:26 Ramon Yi [facility] HC COMPLETE BLD COUNT 2021-09-21 15:55:00 Ramon Yi [facility] W/AUTO DIFF COMPREHENSIVE METABOLIC 2021-09-21 15:55:00 Ramon Yi [facility] PANEL MAGNESIUM LEVEL 2021-09-21 15:55:00 [facility] LACTIC ACID LEVEL, SEPSIS 2021-09-21 15:55:00 [facility], [facility] - NOW AND REPEAT 2X EVERY 3 HOURS TROPONIN T 2021-09-21 15:55:00 [facility] B NATRIURETIC PEPTIDE 2021-09-21 15:55:00 Ramon Yi [facility] ESTIMATED GFR 2021-09-21 15:55:00 [facility] 12-LEAD 2021-09-21 15:45:18 [facility] POC GLUCOSE 2021-09-21 15:41:00 Ramon Yi [facility] AUTHORIZATION FOR RELEASE 2020-06-09 05:01:00 Doctor Unassigned, [facility] [place] TROPONIN I 2020-06-06 15:54:00 Arielle Murillo K.HLuis Enrique [facility] LIPID PANEL ([id number])(TOTAL 2020-06-06 15:54:00 Chidi Sendcoleen [facility] CHOLESTEROL, [facility] TRIGLYCERIDES, HDL) N-TERMINAL PRO-BNP 2020-06-06 15:54:00 Chidi Sendil [facility] COVID-19 (MOLECULAR 2020-06-06 08:46:00 Singer [facility] TESTING [facility] NUCLEIC ACID AMPLIFICATION) COVID-19 (ID NOW RAPID 2020-06-06 04:41:00 Singer [facility] TESTING) Medical Branch XR CHEST 1 VW 2020-06-06 03:04:04 [facility] TROPONIN I 2020-06-06 02:53:00 [facility] COMP. METABOLIC PANEL 2020-06-06 02:53:00 Singer [facility] ([id number]) Medical Branch CBC WITH DIFF 2020-06-06 02:53[facility] 2020-06-06 02:53:00 Stone [facility] (A1C) Medical Branch URINALYSIS 2020-06-06 02:53:00 [facility] NOTICE OF PRIVACY 2020-06-06 02:26:49 Doctor Unassigned, [facility] Plan of Care Planned Activity Planned Date Details Comments Source Future Scheduled 2021-12-24 HEPATITIS B VACCINES [facility] Test 17:00:45 (1 of 3 - 3-dose series) [code = HEPATITIS B VACCINES (1 of 3 - 3-dose series)] Future Scheduled 2021-12-24 [facility] 17:00:45 (procedure) [code = 440552788] Future Scheduled 2021-12-24 COLONOSCOPY SCREENING [facility] Test 17:00:45 [code = COLONOSCOPY SCREENING] Future Scheduled 2021-12-24 SHINGLES VACCINES (1 [facility] Test 17:00:45 of 2) [code = SHINGLES VACCINES (1 of 2)] Future Scheduled 2021-12-24 65+ P[facility]UMOCOCCAL [facility] Test 17:00:45 VACCINE (1 - PCV) [code = 65+ PNEUMOCOCCAL VACCINE (1 - PCV)] Future Scheduled 2021-12-24 COVID-19 VACCINE (3 - Me [facility] Test 17:00:45 Booster for Pfizer series) [code = COVID-19 VACCINE (3 - Booster for Pfizer series)] Future Scheduled 2021-12-24 INFLUENZA VACCINE [facility] Test 17:00:45 [code = INFLUENZA VACCINE] Future Scheduled 2021-04-21 65+ [facility]OCOCCAL [facility] Test 00:17:20 VACCINE (1 of 2 - PPSV23) [code = 65+ PNEUMOCOCCAL VACCINE (1 of 2 - PPSV23)] Future Scheduled 2021-04-21 Hepatitis C screening [facility] Test 00:17:20 (procedure) [code = 833015254] Future Scheduled 2021-04-21 COLONOSCOPY SCREENING [facility] Test 00:17:20 [code = COLONOSCOPY SCREENING] Future Scheduled 2021-04-21 [facility]INGLES [facility]INES (#[facility] 00:17:20 [code = SHINGLES VACCINES (#1)] Future Scheduled 2021-04-21 INFLUENZA VACCINE [facility] Test 00:17:20 [code = INFLUENZA VACCINE] Future Scheduled 2021-04-21 COVID-19 VACCINE (3 - [facility] Test 00:17:20 Booster for Pfizer series) [code = COVID-19 VACCINE (3 - Booster for Pfizer series)] Future Scheduled 2021-04-21 65+ P[facility]UMOCOCCAL [facility] Test 00:17:20 VACCINE (1 of 2 - PPSV23) [code = 65+ PNEUMOCOCCAL VACCINE (1 of 2 - PPSV23)] Future Scheduled 2021-04-21 [facility] 00:17:20 (procedure) [code = 012622162] Future Scheduled 2021-04-21 [facility]ENING [facility] Test 00:17:20 [code = COLONOSCOPY SCREENING] [...] [facility] Test [facility]00 (1 of 1 - Medical Center RYHS99_Lhnnzcf PCV13) [code = PNEUMOCOCCAL 65+ YRS (1 of 1 - LLPW40_Twsduwe PCV13)] Future Scheduled 2014 PNEUMOCOCCAL 65+ YRS [facility] Test 00:00:00 (1 of 1 - Medical Center FBDV87_Pevpzxb PCV13) [code = PNEUMOCOCCAL 65+ YRS (1 of 1 - LJHI99_Gxqisus PCV13)] Future Scheduled 1999-08-13 SHINGLES VACCINES (1 [...] [facility] Center colon (procedure) [code = 771604472] Future Scheduled [address] [facility] Test 00:00:00 malignant neoplasm of Medica l Center colon (procedure) [code = 825404106] Encounters Start End Encounter Admission Attending Care Care Encounter Source Date/Time Date/Time Type Type Clinicians Facility Department ID 2020-12-23 Outpatient JEFFERSON BRAGG [facility] Surgery [id number] [facility] 02:00:22 2021-10-12 2021-10-12 Clinical 1.2.840.1 [id number] [facility] 14:00:00 14:29:[address] 3.430.2.7 Hospit a .3.181728 l .8 2021-10-12 2021-10-12 Outpatient [facility] [id number] [place] 00:00:00 00:00:[address] 2021-10-12 2021-10-12 Travel 1.2.840.1 1.2.361.699 [id number] [facility] 00:00:00 00:00:[address] 3.430.2.7 0.2.7.3.698 Ho spita .3.255113 084.8 l .8 2021-10-04 2021-10-04 Telephone Khan, 1.2.840.1 [id number] [facility] 00:00:00 00:00:[address] 3.430.2.7 Hospit a .3.821833 l .8 2021-09-21 2021-09-29 [facility] Ramon Yi 1.2.840.1 [id number] Methodi 10:38:00 18:12:00 Encounter Shree Koroma Sidney 21547.1.[address] [place], [place] 3.430.2.7 Hos efren .3.063734 l .8 2021-09-21 2021-09-29 Inpatient LAINE, ITI [facility] 064 [id number] [place] 00:00:00 00:00:[address] 2021-09-28 2021-09-28 Surgery Khan, 1.2.840.1 [id number] [facility] 12:00:00 13:35:[address] 3.430.2.7 Hospit a .3.443565 l .8 2021-09-22 2021-09-22 Documentat Provider, 1.2.840.1 [id number] Methodi 00:00:00 00:00:00 ion Unknown 62040.1.[address] 3.430.2.7 Hospit a .3.064312 l .8 2021-09-22 2021-09-22 Orders Radhames, 1.2.840.1 [id number] [facility] 00:00:00 00:00:00 Only Maite 85813.1.[address] 3.430.2.7 Hospit a .3.038545 l .8 2021-09-21 2021-09-21 Travel 1.2.840.1 1.2.547.762 1153 [id number] [facility] 00:00:00 00:00:[address] 3.430.2.7 0.2.7.3.698 Ho spita .3.911816 084.8 l .8 2021-03-03 2021-03-03 Refill Yaltho, 1.2.840.1 [id number] Methodi 00:00:00 00:00:[address] 3.430.2.7 Hospit a .3.670016 l .8 2021-03-03 2021-03-03 Refill Yaltho, 1.2.840.1 [id number] [facility] 00:00:00 00:00:[address] 3.430.2.7 Hospit a .3.741559 l .8 2020-07-20 2020-07-20 Refill Yaltho, 1.2.840.1 [id number] 7976 [facility] 00:00:00 00:00:[address] 3.430.2.7 Hospit a .3.047938 l .8 2020-06-11 2020-06-11 Transition Yadiel Patricia 1.2.840.114 [id number] Univers 00:00:00 00:00:00 of Care Teagan Avendaño 350.1.13.10 [place] [phone] [facility] 403 Branch 2020-06-09 2020-06-09 Orders Doctor JEFFERSON 1.2.840.114 [id number] Univers 00:00:00 00:00:00 Only Unassigned, JUDITH 350.1.13.10 [facility]y [place] [facility] 4.2.7.2.686 Roger as [phone] [facility] 009 Branch 2020-06-08 2020-06-08 Transition Yadiel Patricia 1.2.840.114 [id number] Univers 00:00:00 00:00:00 of Care Teaganrigoberto Gillettey 350.1.13.10 [place] [phone] [facility] 403 Branch 2020-06-05 2020-06-06 Outpatient X [facility] [id number] Univers 21:29:00 14:10:00 STONE leung of [facility] 2020-06-05 2020-06-06 Emergency Hamzah Barr [facility] 1.2.840. 114 [id number] Univers 21:29:00 14:10:00 Deep [place] 350.1.13.10 [place] [phone] [facility] 080 Branch 2020-05-17 2020-05-17 Clinical Ciro, 1.2.840.1 [id number] Methodi 16:49:22 16:52:11 Support Demetrio Parker50.1.[address] P. 3.430.2.7 Hospit a .3.024667 l .8 2020-04-30 2020-04-30 Telemedici Desi, 1.2.840.1 [id number] Methodi 09:41:31 09:51:08 ne Gilles Parker50.1.[address] 3.430.2.7 Hospit a .3.467493 l .8 2020-04-26 2020-04-26 Clinical 1.2.840.1 [id number] [facility]i 16:28:39 16:43:[address] 3.430.2.7 Hospit a .3.856731 l .8 2020-04-26 2020-04-26 Travel 1.2.840.1 1.2.853.367 [id number] [id number] [facility] 00:00:00 00:00:[address] 3.430.2.7 0.2.7.3.698 spita .3.919954 084.8 l .8 2020-03-03 2020-03-03 Outpatient JEFFERSON BRAGG [facility] [id number] [place] 00:00:00 00:00:[address] 2020-02-26 2020-02-26 Outpatient SHKEDY, [facility] [id number] [place] 00:00:00 00:00:00 SAMREEN [address] 2020-02-19 2020-02-19 Outpatient GISELA, [facility] [id number] [address] [place] [address] 00:00:00 00:00:00 JOCELYN [address] 2020-02-19 2020-02-19 Outpatient GISELA, [facility] [id number] [place] 00:00:00 00:00:00 JOCELYN [address] 2020-02-19 2020-02-19 Outpatient GISELA, [facility] [id number] [place] 00:00:00 00:00:00 JOCELYN [address] 2019-12-25 2019-12-25 Outpatient YALTHO [facility] [id number] [place] 00:00:00 00:00:00 GILLES [address] 2019-12-17 2019-12-17 Outpatient JEFFERSON BRAGG [facility] [id number] [place] 00:00:00 00:00:[address] 2019-11-19 2019-11-19 Outpatient JEFFERSON BRAGG [facility] [id number] [place] 00:00:00 00:00:[address] 2019-10-30 2019-10-30 Outpatient EL [facility] [id number] [facility] 00:00:00 00:00:00 2019-10-03 2019-10-03 Outpatient JEFFERSON BRAGG [facility] [id number] [place] 00:00:00 00:00:[address] 2019-10-03 2019-10-03 Outpatient JEFFERSON BRAGG [facility] [id number] [place] 00:00:00 00:00:[address] 2019-10-03 2019-10-03 Outpatient JEFFERSON BRAGG [facility] [id number] [place] 00:00:00 00:00:[address] 2019-08-22 2019-08-22 Outpatient SHREBECCA, [facility] [id number] [place] 00:00:00 00:00:00 SAMREEN [address] 2019-08-22 2019-08-22 Outpatient YALTHO, [facility] [id number] [place] 00:00:00 00:00:00 GILLES [address] 2019-08-16 2019-08-16 Outpatient GISELA, [facility] [id number] [place] 00:00:00 00:00:00 JOCELYN [address] 2019-08-16 2019-08-16 Outpatient GISELA, [facility] [id number] [place] 00:00:00 00:00:00 JOCELYN [address] 2019-07-19 2019-07-19 Outpatient YALTHO, [facility] [id number] [place] 00:00:00 00:00:00 GILLES [address] 2019-05-03 2019-05-03 Outpatient YALTHO, [facility] [id number] [place] 00:00:00 00:00:00 GILLES [address] 2019-05-03 2019-05-03 Outpatient YALTHO, [facility] [id number] [place] 00:00:00 00:00:00 GILLES [address] 2019-03-09 2019-03-09 Outpatient GISELA, [facility] [id number] [address] [place] [address] 00:00:00 00:00:00 JOCELYN [address] 2019-02-25 2019-02-25 Outpatient GISELA, [facility] [id number] [place] 00:00:00 00:00:00 JOCELYN [address] 2019-02-25 2019-02-25 Outpatient GISELA, [facility] [id number] [place] 00:00:00 00:00:00 JOCELYN [address] 2019-01-17 2019-01-17 Outpatient STEFANO, [facility] [id number] [place] 00:00:00 00:00:00 SAMREEN [address] 2018-12-18 2018-12-18 Outpatient STEFANO [facility] [id number] [place] 00:00:00 00:00:00 SAMREEN [address] 2018-12-06 2018-12-06 Outpatient STEFANO [facility] [id number] [place] 00:00:00 00:00:00 SAMREEN [address] 2018-12-04 2018-12-04 Outpatient STEFANO [facility] [id number] [place] 00:00:00 00:00:00 SAMREEN [address] 2018-11-30 2018-11-30 Outpatient STEFANO [facility] [id number] [place] 00:00:00 00:00:00 SAMREEN [address] 2018-11-28 2018-11-28 Outpatient STEFANO [facility] [id number] [place] 00:00:00 00:00:00 SAMREEN [address] 2018-11-26 2018-11-27 Outpatient STEFANO [facility] [id number] [place] 00:00:00 00:00:00 SAMREEN [address] 2018-11-26 2018-11-26 Outpatient STEFANO [facility] [id number] [place] 00:00:00 00:00:00 SAMREEN [address] Results Test Description Test Time Test Comments Results Result Comments Source ECG Pre/Post Op 2021-10-01 13:15:02 Test Item Value Reference Range Interpretation Comme nts Ventricular rate (test code = 253) Atrial rate (test code = 255) UT interval (test code = 266) QRSD interval (test code = 260) QT interval (test code = 264) QTC interval (test code = 265) QRS axis 1 (test code = 268) T wave axis (test code = 270) EKG impression (test code = 273) Atrial-paced rhythm with prolonged AV conduction-Minimal voltage criteria for LVH, may be normal variant-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)- [facility] [id number] 17:27:00 Test Item Value Reference Range Interpretation Comments POC glucose (test code 225 mg/dL 65-99 H Opera tor Name: = 80590-3) Compa oakes ID: [id number] able: RN Notified Lab Interpretation Abnormal (test code = 74623-5) Bahai [id number]-TcE-3 (COVID-19) RNA [Presence] in Respiratory specimen by JS with probe [id number] 16:13:23 Test Item Value Reference Range Interpretation Comments SARS-CoV-2 (COVID-19) RNA Not detected [Presence] in Respiratory specimen by SJ with probe detection (test code = 54111-1) Whether patient is employed in a Unknown healthcare setting (test code = 49009-9) Whether the patient has symptoms Unknown related to condition of interest (test code = 33689-4) Whether the patient was Unknown hospitalized for condition of interest (test code = 18898-9) Whether the patient was admitted Unknown to intensive care unit (ICU) for condition of interest (test code = 15776-4) Whether patient resides in a Unknown congregate care setting (test code = 59130-7) status (test code = Unknown 52243-2) Date and time of symptom onset Unknown (test code = 72971-3) ECG 12 [id number] 01:10:55 Test Item Value Reference Range Interpretation Comments Ventricular rate (test code = 253) Atrial rate (test code = 255) UT interval (test code = 266) QRSD interval (test code = 260) QT interval (test code = 264) QTC interval (test code = 265) P axis 1 (test code = 267) QRS axis 1 (test code = 268) T wave axis (test code = 270) EKG impression (test Marked sinus code = 273) bradycardia with premature atrial complexes-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)-Abnormal ECG-In automated comparison with ECG of 21-SEP-2021 10:45,-premature atrial complexes are now present-Vent. rate has decreased BY 31 BPM-Minimal criteria for Anterior infarct are no longer present-Nonspecific T wave abnormality now evident in Inferior leads-QT has shortened-Electronical ly Signed By Kriss Iglesias MD ([id number]) on 09/26/2021 8:10:48 [facility], (w Contrast, Strain and 3D if needed)2021-09-22 23:49:22 Test Item Value Reference Range Interpretation Comments Ao Root Diameter (test 3.52 cm code = 2382368044) AoV Area, Vmax (test 2.34 cm2 code = 4379548533) AoV Area, VTI (test 2.60 cm2 code = 3812713872) AoV Mean PG (test code mmHg = 2720394089) AoV Peak PG (test code mmHg = 2243427577) AoV Vmax (test code = 1.58 m/s 7100367708) AoV VTI (test code = 0.27 m 2201024968) IVS,d (test code = 1.24 cm 0.6-1.0 A 7468923357) IVS/LVPW,2D (test code = 9982731954) Left Atrium Dimension 4.50 cm Anterior (test code = 0112752605) LV,d (test code = 5.53 cm 6244075085) LV EF,2D (test code = 61.39 % 1276370886) LV,s (test code = 4.03 cm 3035315864) LVOT area (test code = 3.17 cm2 0003134522) LVOT Diam,S (test code 2.01 cm = 5986671100) LVOT Vmax (test code = 1.02 m/s 8512676568) LVOT VTI (test code = 0.23 m 5018373587) LVPWD,d (test code = 1.26 cm 0.6-1.0 A 9546666803) PV Pk Grad (test code mmHg = 5906973305) PV VMAX (test code = 1.39 m/s 4362279833) RVOT Vmax (test code = 0.78 m/s 0020030966) TR Vpeak (test code = 2.70 m/s 5946902094) MV E A ratio (test code = 2609969281) TR pk grad (test code mmHg = 2821116838) MR Vmax (test code = 3.82 m/s 5270068024) E wave decelartion msec time (test code = 4485065455) MV Peak A Jese (test 0.80 m/s code = 8037236586) MV valve area p 1/2 3.51 cm2 method (test code = 0954692747) MV Peak E Jese (test 0.63 m/s code = 1640616039) MV stenosis pressure 62.63 ms 1/2 time (test code = 0535073490) LVOT stroke volume 0.73 ml (test code = 0391939936) AV LVOT peak gradient mmHg (test code = 1053071114) Ascending aorta (test 3.62 cm code = 7391170333) Ao Root Diameter (test 3.52 cm code = 4164081753) MV mean gradient (test mmHg code = 0343072046) LV SYS VOL (test code 71.15 ml 21-61 A = 7789589205) LV HANEY VOL (test code 149.32 ml 62-150 = 8417966433) LA area s A4C (test 13.11 cm2 code = 4619043858) LV SV Teich 2D (test 78.18 ml code = 3945708171) LV Vol s Teich PSAX 71.15 ml (test code = 2065800913) MR peak grad (test mmHg code = 1467756970) MV Vmax (test code = 0.95 m 5944085668) MV VTI Tips (test code 0.32 m = 7087949762) RVOT pk grad (test mmHg code = 9459178026) AoV Vmn (test code = 0.85 m/s 4848652633) LV FS Teich 2D (test code = 5218800787) MV AE ratio (test code = 9062019900) LV FS Cube 2D (test code = 3985002044) LVOT Vmn (test code = 2261693674) Aov area Vmn (test 2.37 cm2 code = 3403691191) LVOT mean grad (test mmHg code = 1592735322) MAX Pred HR (test code = 5776772291) 85 of MPHR (test code = 0142298451) Calc MPHR (test code = bpm 6141526831) LV SV Cube 2D (test 103.85 ml code = 8059807224) LV vol d cube 2D (test 169.18 ml code = 8972370352) LV vol s cube 2D (test 65.33 ml code = 2026819872) MV Decel slope (test 2.91 m/s2 code = 1080221498) Pred Exer Dur R1 (test code = 1274235704) Pred METS R1 (test code = 0731056718) LA Vol MOD A4C (test 25.42 ml code = 7504097928) E miranda sept (test code = 6881110058) E prime lat (test code = 1365293208) Velocity Ratio (V1/V2) 0.65 m/s (test code = 4689) EF (test code = 52 % 4471551635) E/A ratio (test code = 1767558807) LVOT VTI (CM) (test 23.00 cm code = 7363211517) FARNK (test code = FRANK) Left Ventricle: Left ventricle size is normal. Mildly increased wall thickness. Mild basal septal thickening. Findings consistent with mild asymmetric hypertrophy. Normal systolic function with a visually estimated EF of 55 - 60%. Grade I (impaired relaxation) diastolic dysfunction. Pericardium: There is a small circumferential pericardial effusion present. Aorta: Mildly dilated sinus of Valsalva. Mildly dilated aortic root. Mildly dilated ascending aorta. Left VentricleNot well visualized. Left ventricle size is normal. Mildly increased wall thickness. Mild basal septal thickening. Findings consistent with mild asymmetric hypertrophy. Normal systolic function with a visually estimated EF of 55 - 60%. Grade I (impaired relaxation) diastolic dysfunction.Right VentricleNot well visualized. Right ventricle size is normal. Normal systolic function.Left AtriumNot well visualized. Left atrium size is normal. No ASD present. No PFO present.Right AtriumNot well visualized. Right atrium size is normal.IVC/SVCIVC was not assessed.Mitral ValveNot well visualized. Valve structure is normal. Trace valvular regurgitation. No stenosis.Tricuspid ValveNot well visualized. Valve structure is normal. Trace valvular regurgitation. Unable to assess PA systolic pressure.Aortic ValveNot well visualized. Valve structure appears probably tricuspid. Physiologically normal valvular regurgitation. No stenosis.Pulmonic ValveNot well visualized. Valve structure is normal. Trace valvular regurgitation.Pericardi umNot well visualized. There is a small circumferential pericardial effusion present.AortaNot well visualized. Mildly dilated sinus of Valsalva. Mildly dilated aortic root. Mildly dilated ascending aorta.Study DetailsStudy quality was suboptimal. A complete 2D, color flow Doppler and spectral Doppler echocardiogram was performed.The apical, parasternal, subcostal and suprasternal views were obtained. Lab Interpretation Abnormal (test code = 10611-6) Andrew SnyderARS-CoV-2 (COVID-19) RNA [Presence] in Respiratory specimen by SJ with probe [id number] 18:25:31 Test Item Value Reference Range Interpretation Comments SARS-CoV-2 (COVID-19) RNA Not detected [Presence] in Respiratory specimen by SJ with probe detection (test code = 90989-6) Whether patient is employed in a Unknown healthcare setting (test code = 76768-9) Whether the patient has symptoms Unknown related to condition of interest (test code = 05698-9) Whether the patient was Unknown hospitalized for condition of interest (test code = 58681-2) Whether the patient was admitted Unknown to intensive care unit (ICU) for condition of interest (test code = 56072-9) Whether patient resides in a Unknown congregate care setting (test code = 90934-6) status (test code = Unknown 34136-8) Date and time of symptom onset Unknown (test code = 14741-9) ECG ED Preliminary Interpretation - Not an [id number] 17:16:17 Test Item Value Reference Range Interpretation Comments FRANK (test code = FRANK) Ramon Yi MD 09/21/2021 2:20 PMEG ED Preliminary Interpretation - Not an OrderPerformed by: Ramon Yi [facility] CENTERuthorized by: Ramon Yi MD ECG reviewed by ED Physician in the absence of a sports nutritionist: yes Interpretation: Interpretation: abnormal Quality: Tracing quality: Limited by artifactRate: ECG rate: 70 ECG rate assessment: normal Rhythm: Rhythm: sinus rhythm Ectopy: Ectopy: none QRS: QRS axis: Normal QRS intervals: NormalConduction: Conduction: normal ST segments: ST segments: NormalT waves: T waves: flattening and inverted Flattening: V1, V2, V3 and V4 Inverted: I and aVL Lab Interpretation Abnormal (test code = 86787-0) Andrew GarciaBRENTON [id number] 16:33:01 Test Item Value Reference Range Interpretation Comments TROPONIN I (test <0.012 See_Comment [Automated code = 0401326290) message] The system which generated this result [...] ? Lab Interpretation Normal (test code = 69386-9) [facility] [id number] 16:30:00 Test Item Value Reference Range Interpretation Comments NT-proBNP (test code 185 pg/mL See_Comment H [Autom ated = 9737004794) message] The system which generated this result transmitted reference range : <=125. The reference range was not used to interpret this result as normal/abnormal . FRANK (test code = FRANK) Biotin has been reported to cause a negative bias, interpret results relative to patient's use of biotin. Lab Interpretation Abnormal (test code = 54291-9) [facility] CenterLIPID PANEL (69784)(TOTAL CHOLESTEROL, TRIGLYCERIDES, HDL)2020-06-06 16:22:02 Test Item Value Reference Range Interpretation Comments CHOL (test code = 214 mg/dL 120-200 H 8778163866) HDL (test code = 60 mg/dL >40 8091601454) HDLC RATIO (test code = See_Comment [Au tomated message] 1616557215) The system [email or web address] generated this result transmit tammy reference range : <=5.0. The refe rence range was not u sed to interpret th is result as normal/abnormal . TRIG (test code = 316 mg/dL 30-170 H 1526193541) LDL CHOL (test code = 91 mg/dL See_Comment [Auto mated message] 21731-9) The system [email or web address] generated this result transmit tammy reference range : <=160. The refe rence range was not u sed to interpret th is result as normal/abnormal . VLDL (test code = 63 mg/dL 5-60 H 2175436095) Lab Interpretation (test Abnormal code = 69258-0) [facility] CenterCORON[facility]IR[facility] COVID-19 [id number] 11:58:49 Test Item Value Reference Range Interpretation Comments SARS-CoV-2 NAAT (test Positive Not Detected A code = 92083-5) FRANK (test code = FRANK) MemfoACT Xpert ?Xpress SARS-CoV-2 Assay is a rapid, real-time RT-PCR test intended for the qualitative detection of nucleic acid from the SARS-CoV-2 in nasopharyngeal (END USER CONSULTANT) specimens. It is used under Emergency Use [...] indicated. Lab Interpretation Abnormal (test code = 38927-8) [facility] CenterGLYCOSYLATED HEMOGLOBIN (A1C)2020-06-06 11:56:53 Test Item Value Reference Range Interpretation Comments HGB A1C (test code = 7.8 % 4.0-6.0 H 4548-4) FRANK (test code = FRANK) %A1C (NGSP) Interpretation (ADA)4.8-5.6 ? ? Normal or (Non-Diabetic Range)5.7-6.4 ? ? Increased Risk (Pre-Diabetic)>6.5 ?Diabetes Indicated Lab Interpretation Abnormal (test code = 98144-0) [facility] CenterCOVID[facility] (ID NOW RAPID TESTING)2020-06-06 04:57:34 Test Item Value Reference Range Interpretation Comments SARS-CoV-2 Rapid ID NOW Positive Not Detected A (test code = 69209-8) FRANK (test code = FRANK) ID NOW COVID-19 Assay is an isothermal nucleic acid amplification test intended for the qualitative detection of nucleic acid from SARS-CoV-2 viral RNA in nasopharyngeal (END USER CONSULTANT) specimens. It is used under Emergency Use [...] indicated. Lab Interpretation Abnormal (test code = 59938-0) [facility] CenterTRROYER [id number] 03:36:48 Test Item Value Reference Range Interpretation Comments TROPONIN I (test <0.012 See_Comment [Automated code = 8322537960) message] The system which generated this result [...] ? Lab Interpretation Normal (test code = 46208-7) [facility]. METABOLIC PANEL (82022)2020-06-06 03:23:27 Test Item Value Reference Range Interpretation Comments NA (test code = 135 mmol/L 135-145 0525396664) K (test code = 4.5 mmol/L 3.5-5.0 8495665468) CL (test code = 99 mmol/L 98-108 3761554203) CO2 TOTAL (test code = 27 mmol/L 23-31 1715643071) AGAP (test code = 2-16 0773077836) BUN (test code = 25 mg/dL 7-23 H 0401486310) GLUCOSE (test code = 203 mg/dL 70-110 H 1848683123) CREATININE (test code = 1.31 mg/dL 0.60-1.25 H 5956832679) TOTAL BILI (test code = 0.6 mg/dL 0.1-1.0 9246643131) CALCIUM (test code = 9.0 mg/dL 8.6-10.6 8295195999) T PROTEIN (test code = 6.9 g/dL 6.3-8.2 8573643943) ALBUMIN (test code = 4.3 g/dL 3.5-5.0 2754081842) ALK PHOS (test code = 54 U/L 34-122 1542708994) ALTv (test code = 12 U/L 5-50 1742-6) AST(SGOT) (test code = 25 U/L 13-40 9644082036) eGFR Calculation mL/min/1.73m2 (Non-) (test code = 5213524845) eGFR Calculation mL/min/1.73m2 () (test code = 1891856746) FRANK (test code = FRANK) Association of [...] tests). Lab Interpretation Abnormal (test code = 05624-3) [facility] CenterURINALYSIS2021-03-20 03:19:40 Test Item Value Reference Range Interpretation Comments APPEARANCE (test code = Hazy Clear A 6876067479) COLOR (test code = Anais Yellow A 8849244615) PH (test code = 4.8-8.0 3161491893) SP GRAVITY (test code = 1.003-1.030 4659965848) GLU U QUAL (test code = 500 mg/dL Normal A 1270614745) BLOOD (test code = Negative Negative 4101836564) KETONES (test code = 5 mg/dL Negative A 3752855031) PROTEIN (test code = 30 mg/dL Negative A 2887-8) UROBILIN (test code = 2.0 mg/dL Normal A 1899739563) BILIRUBIN (test code = Negative Negative 7554642923) NITRITE (test code = Negative Negative 0312398446) LEUK RAIN (test code = Negative Negative 2982220938) RBC/HPF (test code = See_Comment [Autom ated message] 5495792712) The system [email or web address] generated this result transmit tammy reference range : 0 - 3 HPF. The refe rence range was not u sed to interpret th is result as normal/abnormal . WBC/HPF (test code = See_Comment [Autom ated message] 4935918860) The system [email or web address] generated this result transmit tammy reference range : 0 - 5 HPF. The refe rence range was not u sed to interpret th is result as normal/abnormal . BACTERIA (test code = Few Negative A 3201656334) MUCOUS (test code = Slight Negative LPF A 5278770318) SQ EPITH (test code = HPF 1976695223) HYAL CAST (test code = See_Comment H [Aut omated message] 1523958874) The system [email or web address] generated this result transmit tammy reference range : <=2 LPF. The refere nce range was not u sed to interpret th is result as normal/abnormal . Lab Interpretation (test Abnormal code = 10954-6) [facility] WITH [id number] 03:13:42 Test Item Value Reference Range Interpretation Comments WBC (test code = See_Comment [Automated 6690-2) message] The sy stem which generated this result transmitted reference range : 4.20 - 10.70 10*3/?L. The reference range was not used to interpret this result as normal/abnormal . RBC (test code = See_Comment [Automated 479-8) message] The sy stem which generated this [...] RDW-SD (test code = 46.5 fL 38.5-51.6 07547-0) RDW-CV (test code = 14.5 % 12.1-15.4 788-0) PLT (test code = See_Comment [Automated 777-3) message] The sy stem which generated this result transmitted reference range : 150 - 328 10*3/ ?L. The reference r denise was not used to interpret this result as normal/abnormal . MPV (test code = 9.6 fL 9.8-13.0 L 94363-5) NRBC/100 WBC (test See_Comment [Automat ed code = 2835792163) message] The system which generated this result transmitted reference range : 0.0 - 10.0 /100 WBCs. The refer ence range was not u sed to interpret th is result as normal/abnormal . NRBC x10^3 (test code <0.01 See_Comment [Auto mated = 0188604949) message] The s ystem which generated this result transmitted reference range : 10*3/?L. The reference range was not used to interpret this result as normal/abnormal . GRAN MAT (NEUT) % 54.8 % (test code = 770-8) IMM GRAN % (test code 1.30 % = 8148836354) LYMPH % (test code = 27.9 % 736-9) MONO % (test code = 7.8 % 5905-5) EOS % (test code = 7.6 % 713-8) BASO % (test code = 0.6 % 706-2) GRAN MAT x10^3(ANC) 5.66 10*3/uL 1.99-6.95 (test code = 1791270506) IMM GRAN x10^3 (test 0.13 10*3/uL 0.00-0.06 H code = 5556242983) LYMPH x10^3 (test code 2.88 10*3/uL 1.09-3.23 = 731-0) MONO x10^3 (test code 0.81 10*3/uL 0.36-1.02 = 742-7) EOS x10^3 (test code = 0.78 10*3/uL 0.06-0.53 H 711-2) BASO x10^3 (test code 0.06 10*3/uL 0.01-0.09 = 704-7) Lab Interpretation Abnormal (test code = 33721-8) [facility] CenterXR CHEST 1 [id number] 03:11:14 1. ?No acute cardiopulmonary abnormality.EXAM: XR [...] COMPARISON: None availableFINDINGS:Lines/Tubes: Right Port-A-Cath extends to distalSVC.Lungs: The lungs are poor expanded with perihilar vascular crowding.Retrocardiac opacity is likely atelectasis.Heart/Mediastinum: The cardiomediastinal silhouette is at upper limit ofnormal.Bones: Changes from medial sternotomy. An ACDF partial visualized.IMPRESSION1. No acute cardiopulmonary abnormality.[facility] CenterURINE [id number] 09:06:00 Test Item Value Reference Range Interpretation Comments CULTURE (BEAKER) (test code = 1095) No growth POCT-GLUCOSE [id number] 12:32:00 Test Item Value Reference Range Interpretation Comments POC-GLUCOSE METER 188 mg/dL 70-110 H : TESTED A T [facility] (BEAKER) (test code [address], = 1538) [place] [id number]: Pilot Control Operator/Techni eddie ID = [id number] for Bhavin Carvajal POCT-GLUCOSE [id number] 08:42:00 Test Item Value Reference Range Interpretation Comments POC-GLUCOSE METER 135 mg/dL 70-110 H : TESTED A T [facility] (BEAKER) (test code [address], = 1538) [place] [address]: Pilot Control Operator/Techni eddie ID = [id number] for Bhavin Carvajal COMPREHENSIVE METABOLIC [id number] 05:20:00 Test Item Value Reference Range Interpretation [...] 347) EGFR (BEAKER) (test 92 mL/min/1.73 ESTIMA TAMMY GFR IS code = 1092) sq m NOT ACCURATE CREATININE CLEARANCE IN PREDICTING GLOMERULAR FILTRATION RATE . ESTIMATED GFR I S NOT APPLICABLE FOR DIALYSIS PATIEN TS. Pilot Control Operator ID - [id number] W/PLT COUNT & AUTO [id number] 04:56:00 Test Item Value Reference Range Interpretation [...] PERCENT (BEAKER) (test code = 2801) POCT-GLUCOSE [id number] 20:27:00 Test Item Value Reference Range Interpretation Comments POC-GLUCOSE METER 258 mg/dL 70-110 H : TESTED A T [facility] (BEAKER) (test code [address], = 1538) [place] [address]: Pilot Control Operator/Techni eddie ID = [id number] for Will iaLiliana nixons POCT-GLUCOSE [id number] 17:51:00 Test Item Value Reference Range Interpretation Comments POC-GLUCOSE METER 262 mg/dL 70-110 H : TESTED A T [facility] (BEAKER) (test code [address], = 1538) [place] [address]: Pilot Control Operator/Techni eddie ID = [id number] for Objose roberta, Ifmarisainwa POCT-GLUCOSE [id number] 12:48:00 Test Item Value Reference Range Interpretation Comments POC-GLUCOSE METER 242 mg/dL 70-110 H : TESTED A T [facility] (BEAKER) (test code [address], = 1538) [place] [address]: Pilot Control Operator/Techni eddie ID = [id number] for Objose granados, Ifmarisainwa PT/[id number] 10:22:00 Test Item Value Reference Range Interpretation Comments PROTIME (BEAKER) (test code = 759) 10.5 sec 9.3-12.0 INR (BEAKER) (test code = 370) 0.96 <=5.90 PARTIAL THROMBOPLASTIN TIME (BEAKER) 22.8 sec 23.0-35.0 L (test code = 760) RECOMMENDED COUMADIN/WARFARIN INR THERAPY RANGESSTANDARD DOSE: 2.0 - 3.0 Includes: PROPHYLAXIS for venous thrombosis, systemic embolization; TREATMENT for venous thrombosis and/or pulmonary embolus.HIGH RISK: Target INR is 2.5-3.5 for patients with mechanical heart valves.Final Information (Auto Output)Final Information (Auto Output)Final Information (Auto Output)[id number] 10:19:00 Test Item Value Reference Range Interpretation Comments MAGNESIUM (BEAKER) (test code = 2.1 mg/dL 1.5-3.0 627) Pilot Control Operator ID - [id number] METABOLIC [id number] 10:18:00 Test Item Value Reference Range Interpretation [...] 697) EGFR (BEAKER) (test 76 mL/min/1.73 ESTIMA TAMMY GFR IS code = 1092) sq m NOT ACCURATE CREATININE CLEARANCE IN PREDICTING GLOMERULAR FILTRATION RATE . ESTIMATED GFR I S NOT APPLICABLE FOR DIALYSIS PATIEN TS. Pilot Control Operator ID - [id number] W/PLT COUNT & AUTO [id number] 10:14:00 Test Item Value Reference Range Interpretation [...] PERCENT (BEAKER) (test code = 2801) POCT-GLUCOSE [id number] 09:14:00 Test Item Value Reference Range Interpretation Comments POC-GLUCOSE METER 198 mg/dL 70-110 H : TESTED A T [facility] ([facility]) (test code [facility], = 1538) [place] [address]: Pilot Control Operator/Techni eddie ID = [id number] for Bhavin Carvajal POCT-GLUCOSE [id number] 21:33:00 Test Item Value Reference Range Interpretation Comments POC-GLUCOSE METER 218 mg/dL 70-110 H : TESTED A [facility] ([facility]) (test code [facility], = 1538) [place] [address]: Pilot Control Operator/Techni eddie ID = [id number] for Andersandra jose fsandraPujakeith POCT-GLUCOSE [id number] 16:23:00 Test Item Value Reference Range Interpretation Comments POC-GLUCOSE METER 225 mg/dL 70-110 H : Notified RN/MD: TESTED ([facility]) (test code AT [facility] [address] = 1538) [place] [id number]: Pilot Control Operator/Techni eddie ID = [id number] for Felicitas Tolliver POCT-GLUCOSE [id number] 14:34:00 Test Item Value Reference Range Interpretation Comments POC-GLUCOSE METER 167 mg/dL 70-110 H : TESTED A T [facility] (BEAKER) (test code [address], = 1538) [place] [address]: Pilot Control Operator/Techni eddie ID = [id number] for [place], [place], FLUORO, NON-SPECIFIC, UP TO 1 [id number] 13:30:00Reason for exam:->surgeryFluoroscopic unit utilized for a procedure performed in the OR. No interpretation was requested. Refer to the operative report for findings. Refer to PACS for patient radiation dose information.URINALYSIS WITHOUT [id number] 11:32:00 Test Item Value Reference Range Interpretation [...] 463) SOURCE(BEAKER) (test code = 2795) POCT-GLUCOSE [id number] 07:56:00 Test Item Value Reference Range Interpretation Comments POC-GLUCOSE METER 179 mg/dL 70-110 H : TESTED A T [facility] (BEAKER) (test code [address], = 1538) [place] [address]: Pilot Control Operator/Techni eddie ID = [id number] for Yogesh Padilla SARS-COV2/RT-PCR ([facility])2019-10-30 13:51:00 Test Item Value Reference Range Interpretation Comments SARS-COV2/RT-PCR (test code = See reflex 9990393) SARS-COV-2 PERFORMING LAB (test code CPL = 8794212) BASIC METABOLIC [id number] 09:33:00 Test Item Value Reference Range Interpretation [...] 1092) DATA TO CALCULA TE ESTIMATED GFR. Pilot Control Operator ID - [id number] W/PLT COUNT & AUTO [id number] 09:03:00 Test Item Value Reference Range Interpretation [...] % 0-0 PERCENT (BEAKER) (test code = 5990)"
[2022-01-01] MEDS ORDERED: MORPHINE 4 MG/ML SYR ONE ×2 (20:39→23:21)
[2022-01-01 21:59] LABS: Absolute Lymphocytes (CBC) 1.3 K/uL (0.7-4.9); Hematocrit 41.2 % (39.6-49.0); Lymphocytes % 12.1 % (15.3-44.8); MCV 81.5 fL (80-100); MPV 6.8 fL (7.6-11.3); RBC Red Blood Cell Count 5.05 M/uL (4.33-5.43)
[2022-01-01 22:15] LABS: Albumin 4.1 g/dL (3.4-5.0); Bilirubin Total 0.7 mg/dL (0.2-1.0); Potassium 4.2 mmol/L (3.5-5.1); Protein, Total 7.8 g/dL (6.4-8.2)
[2022-01-02] MEDS ORDERED: FENTANYL CITR 100 MCG/2 ML ONE (00:01)
[2022-01-02] MEDS ORDERED: HYDROMORPHONE HCL 0.5 MG/0.5 ML INJ ONE (00:33)
--- NOTE | 2022-01-02 02:02 | ER ---
Nurse's Notes [facility] Name: Blaine Silva Jr Age: 71 yrs Sex: Male : 1950 Arrival Date: 01/01/2022 Time: 20:16 Bed 13 Private MD: Diagnosis: Low back pain;Abdominal pain, Generalized Presentation: 01/01 20:36 Chief complaint: Severe low back pain that radiates to lower abdomen since last night. hb Hx of prostate CA. Coronavirus screen: At this time, the client does not indicate any symptoms associated with coronavirus-19. Ebola Screen: No symptoms or risks identified at this time. Onset of symptoms was December 31, 2021. 20:36 Method Of Arrival: Ambulatory hb 20:36 Acuity: FAWN 2 hb 20:50 Initial Sepsis Screen: Does the patient meet any 2 criteria? No. Patient's initial em6 sepsis screen is negative. Does the patient have a suspected source of infection? No. Patient's initial sepsis screen is negative. Risk Assessment: Do you want to hurt yourself or someone else? Patient reports no desire to harm self or others. Historical: - Allergies: 20:50 No Known Allergies; em6 - Immunization history:: Adult Immunizations unknown. - Social history:: Smoking status: unknown. Screenin:49 Abuse screen: Denies threats or abuse. Nutritional screening: No deficits noted. em6 Tuberculosis screening: No symptoms or risk factors identified. 20:49 Fall Risk Ambulatory Aid- None/Bed Rest/Nurse Assist (0 pts). Total Delaney Fall Scale em6 indicates No Risk (0-24 pts). Assessment: 20:48 General: Appears uncomfortable, Behavior is cooperative. Pain: Complains of pain in em6 back Pain radiates to abdomen Pain currently is 10 out of 10 on a pain scale. Neuro: Level of Consciousness is awake, alert, obeys commands, Oriented to person, place, time, situation. Cardiovascular: Patient's skin is warm and dry. Respiratory: Airway is patent Respiratory effort is even, unlabored, Breath sounds are clear bilaterally. GI: Abdomen is non-distended, Bowel sounds present X 4 quads. Abd is soft and non tender X 4 quads. : No signs and/or symptoms were reported regarding the genitourinary system. EENT: No signs and/or symptoms were reported regarding the EENT system. Derm: No signs and/or symptoms reported regarding the dermatologic system. Musculoskeletal: Circulation, motion, and sensation intact. 22:00 Reassessment: No changes from previously documented assessment. Patient and/or family em6 updated on plan of care and expected duration. Pain level reassessed. Patient is alert, oriented x 3, equal unlabored respirations, skin warm/dry/pink. 23:15 Reassessment: notified provider of the pain. new order given. Pain: Complains of pain em6 in abdomen and back Pain currently is 6 out of 10 on a pain scale. Neuro: Level of Consciousness is awake, alert, obeys commands, Oriented to person, place, time, situation. 01/02 00:00 Reassessment: notified provider of the pain. new orders given. Pain: Complains of pain em6 in abdomen and back Pain currently is 8 out of 10 on a pain scale. Neuro: Level of Consciousness is awake, alert, obeys commands, Oriented to person, place, time, situation. 01:14 Reassessment: No changes from previously documented assessment. Patient and/or family ll3 updated on plan of care and expected duration. Pain level reassessed. Patient is alert, oriented x 3, equal unlabored respirations, skin warm/dry/pink. Vital Signs: 01/01 20:36 Pulse 86; Resp 16; Temp 97; Pulse Ox 100% on R/A; Weight 96.62 kg (M); Height 5 ft. 10 hb in. (177.80 cm); Pain 12/27; 22:32 BP 156 / 98; Pulse 83; Resp 18; Pulse Ox 100% ; em6 23:40 BP 185 / 107; Pulse 86; Resp 20; Pulse Ox 100% ; em6 01/02 01:14 BP 191 / 100; Pulse 88; Resp 17; Pulse Ox 96% on R/A; ll3 01/01 20:36 Body Mass Index 30.56 (96.62 kg, 177.80 cm) hb ED Course: 01/01 20:16 Patient arrived in ED. as 20:16 Derek Patel DO is Attending Physician. ms3 20:36 Triage completed. hb 20:37 Sonia Yi, RN is Primary Nurse. em6 20:50 Arm band placed on. em6 20:50 Patient has correct armband on for positive identification. Bed in low position. Call em6 light in reach. Side rails up X2. Pulse ox on. NIBP on. Warm blanket given. 21:25 Missed attempt(s): 20 gauge in right antecubital area. 22 gauge in right forearm. mm9 01/02 00:29 Abdomen In Process Unspecified. EDMS 02:19 No provider procedures requiring assistance completed. IV discontinued, intact, ll3 bleeding controlled, No redness/swelling at site. Pressure dressing applied. Administered Medications: 01/01 21:49 Drug: morphine 4 mg Route: IVP; Infused Over: 4 mins; Site: Port-a-cath; em6 22:28 Follow up: Response: No adverse reaction; RASS: Alert and Calm (0) em6 23:27 Drug: morphine 4 mg Route: IVP; Infused Over: 4 mins; Site: Port-a-cath; em6 01/02 00:07 Follow up: Response: No adverse reaction; RASS: Alert and Calm (0) em6 00:06 Drug: fentaNYL (PF) 50 mcg Route: IVP; Site: Port-a-cath; em6 01:38 Follow up: Response: No adverse reaction; No change in condition ll3 00:38 Drug: Dilaudid (HYDROmorphone) 0.5 mg Route: IVP; Site: Port-a-cath; ll3 02:18 Drug: HEParin Flush (100 units/mL) 500 units Route: IVP; Site: Port-a-cath; ll3 02:18 Follow up: Response: No adverse reaction ll3 Medication: 02:19 VIS not applicable for this client. ll3 Outcome: 02:01 Discharge ordered by . ms3 02:19 Discharged to home via wheelchair, with significant other. ll3 02:19 Condition: stable 02:19 Discharge instructions given to patient, significant other, Instructed on discharge instructions, follow up and referral plans. medication usage, Demonstrated understanding of instructions, follow-up care, medications, Prescriptions given X 1. 02:19 Patient left the ED. ll3 Signatures: Dispatcher [employer] Mai Wood Heather, RN RN Derek Patel, DO ms3 Humza Govea RN RN ll3 Sonia Yi RN RN em6 Nneka Yi mm9
--- NOTE | 2022-01-02 02:02 | EDPHYS ---
Physician Documentation [facility] Name: Blaine Silva Jr Age: 71 yrs Sex: Male : 1950 Arrival Date: 01/01/2022 Time: 20:16 Bed 13 Private MD: ED Physician Derek Patel HPI: 01/02 02:01 This 71 yrs old Male presents to ER via Ambulatory with complaints of Abdominal Pain, ms3 Back Pain. 02:01 1-year-old male with past medical history of Parkinson's, diabetes, CABG, prostate ms3 cancer presents for lower back pain that began 12 hours prior to arrival. Patient rates his pain a 10/10 and describes the pain as sharp and stabbing. Patient states he took his tramadol at 6 PM without relief. Patient denies alleviating factors. Patient states the bumps on the ride to the emergency department made his pain worse.. Historical: - Allergies: 01/01 20:50 No Known Allergies; em6 - Immunization history:: Adult Immunizations unknown. - Social history:: Smoking status: unknown. ROS: 01/02 02:01 Constitutional: Negative for fever, and chills. Neck: Negative for injury, pain, and ms3 swelling, Cardiovascular: Negative for chest pain, and palpitations. Respiratory: Negative for shortness of breath, cough, wheezing, and pleuritic chest pain. Abdomen/GI: Positive for abdominal pain. Back: Positive for pain at rest, pain with movement. All other systems are negative. Exam: 02:01 Constitutional: This is a well developed, well nourished patient who is awake, alert, ms3 and in no acute distress. Head/Face: Normocephalic, atraumatic. Neck: Trachea midline, no cervical lymphadenopathy. Supple, full range of motion without nuchal rigidity, or vertebral point tenderness. No Meningismus. Chest/axilla: Normal chest wall appearance and motion. Nontender with no deformity. Cardiovascular: Regular rate and rhythm with a normal S1 and S2. No gallops, murmurs, or rubs. Normal PMI, no JVD. No pulse deficits. Respiratory: Lungs have equal breath sounds bilaterally, clear to auscultation and percussion. No rales, rhonchi or wheezes noted. No increased work of breathing, no retractions or nasal flaring. Abdomen/GI: Soft, non-tender, with normal bowel sounds. No distension or tympany. No guarding or rebound. No evidence of tenderness throughout. 02:01 Back: pain, that is severe, of the lumbar area, ROM is painful, with all movement. Vital Signs: 01/01 20:36 Pulse 86; Resp 16; Temp 97; Pulse Ox 100% on R/A; Weight 96.62 kg (M); Height 5 ft. 10 hb in. (177.80 cm); Pain 12/27; 22:32 BP 156 / 98; Pulse 83; Resp 18; Pulse Ox 100% ; em6 23:40 BP 185 / 107; Pulse 86; Resp 20; Pulse Ox 100% ; em6 01/02 01:14 BP 191 / 100; Pulse 88; Resp 17; Pulse Ox 96% on R/A; ll3 01/01 20:36 Body Mass Index 30.56 (96.62 kg, 177.80 cm) hb MDM: 01/01 20: Patient medically screened. ms3 01/02 02:01 Data reviewed: vital signs, nurses notes, lab test result(s), radiologic studies, and ms3 as a result, I will discharge patient. Counseling: I had a detailed discussion with the patient and/or guardian regarding: the historical points, exam findings, and any diagnostic results supporting the discharge/admit diagnosis, lab results, radiology results, the need for outpatient follow up, to return to the emergency department if symptoms worsen or persist or if there are any questions or concerns that arise at home. ED course: Discussed observation for pain control and physical therapy with patient and his . They declined at this time as patient has recently had physical therapy. Patient requests hydrocodone prescription as he has taken this in the past for his pain. On reevaluation patient symptoms have improved, patient is alert and orient x4, in no apparent distress, nontoxic appearing. Patient to follow-up with his primary care physician in 2 to 3 days. Patient understands and agrees with plan. All questions were answered to include worsening symptoms, or any other concerns. 01/01 20:29 Order name: CBC with Diff; Complete Time: 22:19 ms3 01/02 20: Order name: CMP; Complete Time: 22:19 ms3 10/15 20:29 Order name: Lipase; Complete Time: 22:19 ms3 01/01 21:38 Order name: Abdomen EDMS 01/01 20:29 Order name: IV Saline Lock; Complete Time: 21:50 ms3 01/01 20:29 Order name: Labs collected and sent; Complete Time: 21:50 ms3 Administered Medications: 01/01 21:49 Drug: morphine 4 mg Route: IVP; Infused Over: 4 mins; Site: Port-a-cath; em6 22:28 Follow up: Response: No adverse reaction; RASS: Alert and Calm (0) em6 23:27 Drug: morphine 4 mg Route: IVP; Infused Over: 4 mins; Site: Port-a-cath; em6 01/02 00:07 Follow up: Response: No adverse reaction; RASS: Alert and Calm (0) em6 00:06 Drug: fentaNYL (PF) 50 mcg Route: IVP; Site: Port-a-cath; em6 01:38 Follow up: Response: No adverse reaction; No change in condition ll3 00:38 Drug: Dilaudid (HYDROmorphone) 0.5 mg Route: IVP; Site: Port-a-cath; ll3 02:18 Drug: HEParin Flush (100 units/mL) 500 units Route: IVP; Site: Port-a-cath; ll3 02:18 Follow up: Response: No adverse reaction ll3 Disposition Summary: 01/02/22 02:01 Discharge Ordered Location: Home ms3 Condition: Stable ms3 Diagnosis - Low back pain ms3 - Abdominal pain, Generalized ms3 Followup: ms3 - With: Private Physician - When: 2 - 3 days - Reason: Recheck today's complaints Discharge Instructions: - Discharge Summary Sheet ms3 - Abdominal Pain, Adult ms3 - Chronic Back Pain ms3 Forms: - Medication Reconciliation Form ms3 - Thank You Letter ms3 - Antibiotic Education ms3 - Prescription Opioid Use ms3 Prescriptions: - Hydrocodone-Acetaminophen 5-325 mg Oral Tablet - take 1 tablet by ORAL route every 4 hours As needed; 15 tablet; Refills: 0, ms3 Product Selection Permitted Signatures: Dispatcher [employer] EDDerek Harper DO DO ms3 Humza Govea RN RN ll3 Sonia Yi RN RN em6
[2022-01-02] MEDS ORDERED: HEPARIN 500 UNIT/5 ML SYR IV ONE (02:05)
[2022-01-02 02:25] VITALS: TEMP 97
[2022-01-02 02:28] VITALS: BP 191/100; O2SAT 96
--- NOTE | 2022-01-03 10:29 | RAD REPORT ---
EXAM DESCRIPTION: CT - Abdomen Pelvis W Contrast - 01/02/2022 12:27 am CLINICAL HISTORY: 71 years, Male, Lower Back Pain COMPARISON: 08/10/2021 TECHNIQUE: Contrast-enhanced images of the abdomen and pelvis were performed utilizing 5 mm slice th ickness at 5 mm interval reconstruction from the lung bases to the ischial tuberosities after the adm inistration of IV contrast. In addition multiplanar reformats in the coronal and sagittal plane were obtained and reviewed. This exam was performed according to our departmental dose-optimization protocol, which includes auto mated exposure control, adjustment of the mA and/or kV according to patient size and/or use of iterat park reconstruction technique. FINDINGS: The lung bases stable left lung base subpleural nodule measuring 1.2 cm and 1 cm on axial image 21 and 24 respectively. There is a pacemaker in place. The liver demonstrates slight decreased attenuation corresponding to mild fatty dictation. Otherwise the liver, gallbladder, pancreas, spleen and adrenal glands demonstrate to be unremarkable, no focal lesions are noted. The kidneys demonstrate normal uptake of contrast media. No evidence for nephrolithiasis and/or hydro nephrosis. There is a lower pole simple left renal cyst measuring 1.5 cm on image 51. No follow-up is recommended Grossly the unopacified stomach, small bowel and large bowel demonstrate to be within normal limits. There is no evidence for bowel dilatation/or free air the appendix was not visualized although no s ignificant inflammatory changes are seen within the right lower quadrant. There is diverticulosis wit hin the left site colon/sigmoid colon. The urinary bladder demonstrate to be unremarkable. The pituitary prostate gland demonstrated prese nce of 3 metallic artifact perhaps corresponding to fiducial markers for radiation treatment. The a yash demonstrate atherosclerotic disease extending into the aortic bifurcation/iliac arteries. Ther e is no retroperitoneal lymphadenopathy. There is no evidence for ascites/or significant abnormal flu id collections. The bone windows demonstrate sclerotic lesion at T11 and S1 similar to prior study. IMPRESSION: No acute intra-abdominal process. Diverticulosis without evidence for acute diverticulitis. Stable sclerotic lesion at T11 and S1. Stable left lung base subpleural nodules. Electronically signed by: Maurisio Carlin MD 01/02/2022 1:32 AM CDT Due to temporary technical issues with the PACS/Fluency reporting system, reports are being signed by the in house radiologists without review as a courtesy to insure prompt reporting. The interpreting radiologist is fully responsible for the content of the report.
== END 2022-01-02 02:19 | disposition home or self-care (01) ==
LOC: ER 20:15
DX: M54.50 Low back pain, unspecified (principal); R10.84 Generalized abdominal pain
CPT/HCPCS: 85025; 36415; 83690; 80053; 74177; 96375; 96374; 99284; Q9967; J3010; J1170; J1642

== ENCOUNTER 2022-02-02 11:59 | Emergency (ER) | payer OTHER ==
--- OUTSIDE RECORDS SUMMARY | 2022-02-02 12:06 | XMS REPORT | Continuity of Care Document ---
:1950 Author Organization [facility] t Address [facility] [place] [address] Care Team Providers Name Role Phone NIMISHA RUY Roman Primary Care Physician Unavailable JEFFERSON BRAGG Attending Clinician Unavailable Sangeeta GONZALEZ, Arron Tyson Attending Clinician XENIA BLANCHARD Attending Clinician Unavailable Janell Khan MA Attending Clinician Unavailable Kd GONZALEZ, Ramon Gonzalez Attending Clinician Lois GONZALEZ, Shree Little Attending Clinician Deshawn Flores MD Attending Clinician France Khan MD Attending Clinician Provider, Unknown Attending Clinician Unavailable Radhames RT, Maite Attending Clinician Unavailable Desi GONZALEZ, Gilles Carrasquillo Attending Clinician Teagan Patricia RN Attending Clinician Doctor Unassigned, [place] Attending Clinician Unavailable STONE ADAME Attending Clinician Unavailable Hamzah Barr DO Attending Clinician Stone Adame MD Attending Clinician Ciro GONZALEZ, Demetrio Sultana Attending Clinician [phone] JEFFERSON BRAGG Attending Clinician Unavailable SAMREEN AGARWAL Attending Clinician Unavailable JOCELYN HIGGINS Attending Clinician Unavailable JEFFERSON BRAGG Admitting Clinician Unavailable SHREE KOROMA Admitting Clinician Unavailable STONE ADAME Admitting Clinician Unavailable Stone Adame MD Admitting Clinician RUY BANSAL Admitting Clinician Unavailable Payers Payer Name Policy Type Policy Number Effective Date Expiration Date Jessie MUÑOZ PPO OPEN CHC [id number] NAP Problems Condition Condition Condition Status Onset Resolution Last Treating Co mments Source Name Details Category Date Date Treatment Clinician Date Cerebrovas Cerebrovas Disease Active M ethodi cular cular 09-21 st accident accident 00:00: Hospit a (CVA) (CVA) 00 l Sick sinus Sick sinus Disease Active Overview : Methodi syndrome syndrome 09-[address] 00:00: g of this Hospita 00 note l might be different from the original. Added automatic ally from request for surgery [id number] Dyslipidem Dyslipidem Disease Active U nivers ia ia 3-21 ity of 00:00: [place] 00 Medical Branch Orthostati Orthostati Disease Active U nivers c c 3-21 ity of dizziness [place] Coronary Coronary Disease Active Unive rs artery artery 3-21 ity of disease disease 00:00: [place] involving involving 00 Medi tony coronary coronary Branch bypass bypass graft of graft of [place] heart heart without without angina angina pectoris pectoris Essential Essential Disease Active Uni vers hypertensi hypertensi 3-21 it y of on on 00:00: [place] 00 Medical Branch COVID-19 COVID-19 Disease Active Unive rs 3-20 ity of 00:00: [place] 00 Medical Branch 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 0-07 st 00:00: Hospita 00 l 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) 00:00: [facility] 00 [...] 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 00:00: Ho spita 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 00 l Chronic Chronic Disease Active Methodi midline midline 9-04 st thoracic thoracic 00:00: Hospit a back pain back pain 00 l Allergies, Adverse Reactions, Alerts Allergy Allergy Status Severity Reaction(s) Onset Inactive Treating Comm ents Source Name Type Date Date Clinician NO KNOWN Drug Active Univers ALLERGIE Class ity of [facility] NO KNOWN Allergy Active [facility] Family History Family Member Diagnosis Comments Start Date Stop Date Source Natural father [facility] Natural mother [facility] Social History Social Habit Start Date Stop Date Quantity Comments Source Exposure to Not sure [facility]-CoV-2 [place] [facility] (event) Branch History of Chews Tobacco [facility] tobacco use History SDOH [facility] Alcohol St[facility] r Drinks History SDOH [facility] Alcohol Binge Medical Krissy ter History SDOH [facility] Alcohol Comment Medical C enter Alcohol intake 2021-10-12 2021-10-12 Ex-drinker [facility] 00:00:00 00:00:00 (finding) Tobacco use and 2019-10-25 2019-10-[address] [facility] exposure 00:00:00 00:00:00 Medical Center History SDOH 2019-10-25 2019-10-[address] [facility] Alcohol Frequency 00:00:00 00:00:00 [facility] Sex Assigned At [address] 00:00:00 00:00:00 [facility] Smoking Status Start Date Stop Date Source Ex-smoker 2021-09-21 00:00:00 2021-09-21 00:00:00 [facility] Never smoker [facility] Branch Medications Ordered Filled Start Stop Current Ordering Indication Dosage Frequency Signature Comments Components Source Medication Medication Date Date Medication? Clinician (SIG) Name Name acetaminoph Yes 500mg Q6H Take 500 M ethodi en 7-[address] (TYLENOL) 13:02: mouth Hospita 500 MG 17 every 6 l tablet (six) hours as needed for mild pain. acetaminoph 2022-0 Yes 500mg Q6H Take 500 M ethodi en 7-[address] (TYLENOL) 13:02: mouth Hospita 500 MG 17 every 6 l tablet (six) hours as needed for mild pain. eszopiclone 0 Yes 3mg QD Take 3 mg M ethodi (LUNESTA) 3 7-[address] mg tablet 13:01: nightly. [facility]osp [facility] 49 Take l immediatel y before bedtime empaglifloz 0 Yes 1{tbl} QD Take 1 Me thodi in-linaglip 7-[address] tin 13:01: mouth Hospita (Glyxambi) 49 daily. l 25-5 mg tablet triptorelin 0 Yes Q90D Inject Meth valencia pamoate - into the st (TRELSTAR 13:01: shoulder, Hos efren DEPOT IM) 49 thigh, or l buttocks every 3 (three) months. traMADoL 0 Yes [id number] 50mg Q6H Take 50 mg Me thodi (ULTRAM) 50 7-[address] mg tablet 13:01: every 6 Hospi ta 49 (six) l hours as needed for moderate pain .acute pain. valsartan 0 Yes 80mg QD Take 80 mg Me [...] tablet 13:01: daily. Hospit a 49 l eszopiclone 0 Yes 3mg QD Take 3 mg M ethodi (LUNESTA) 3 7-[address] mg tablet 13:01: nightly. [facility]osp [facility] 49 Take l immediatel y before bedtime empaglifloz 0 Yes 1{tbl} QD Take 1 Me thodi in-linaglip 7-[address] tin 13:01: mouth Hospita (Glyxambi) 49 daily. l 25-5 mg tablet triptorelin 0 Yes Q90D Inject Meth valencia pamoate - into the st (TRELSTAR 13:01: shoulder, Hos efren DEPOT IM) 49 thigh, or l buttocks every 3 (three) months. traMADoL 0 Yes [id number] 50mg Q6H Take 50 mg Me thodi (ULTRAM) 50 7-[address] mg tablet 13:01: every 6 Hospi ta 49 (six) l hours as needed for moderate pain .acute pain. valsartan 0 Yes 80mg QD Take 80 mg Me [...] Hold if SBP is less than 120 olmesartan 0 Yes 20mg Q.5D Take 1 Metho di (BENICAR) 7-13 tablet (20 st 20 MG 00:00: mg total) Hospita tablet 00 by mouth 2 l (two) times a day. Hold if SBP is less than 120 clopidogrel 0 2021- No 75mg QD Take 75 mg Methodi (PLAVIX) 75 09-24 07-[address] mg tablet 09:14: 00:00 daily. Hospi ta 12 :00 l clopidogrel 2021-0 2022- No 75mg QD Take 75 mg [facility] (PLAVIX) 75 -08 07-[address] mg tablet 09:14: 00:00 daily. Hospi ta 12 :00 l clopidogreL 2021-0 Yes 75mg QD Take 1 Meth valencia (PLAVIX) 75 7-08 tablet (75 st mg tablet 00:00: mg total) Hos efren 00 by mouth l daily. aspirin 2021-0 Yes 81mg QD Take 1 [facility] (ECOTRIN) 7-08 tablet (81 st 81 MG 00:00: mg total) Hospita enteric 00 by mouth l coated daily. tablet atorvastati 0 Yes 40mg QD Take 1 Meth valencia n (LIPITOR) 7-08 tablet (40 st 40 mg 00:00: mg total) Hospita tablet 00 by mouth l nightly. B Yes 1{tbl} QD Take 1 [facility]i complex-vit -[address] nix 00:00: mouth Hospita C-folic 00 daily. l acid (FOLBEE PLUS 5 MG) 5 mg tablet per tablet insulin Yes 0U Q.[id number] Inject Me thodi lispro 09-24 [id number] 0-12 Units s t (ADMELOG) 00:00: 3D under the Hos efren 100 unit/mL 00 skin 3 l injection (three) times a day before meals. lidocaine Yes 1{patch Q24H Place 1 Me thodi (LIDODERM) 08 } patch on st 5 % 00:00: the skin Hospita 00 daily. l Remove & Discard patch within 12 hours or as directed by MD reilly 2021-0 Yes 50mg QD Take 0.5 Metho di mononitrate 7-[address] , vit B1, 00:00: (50 mg Hospit a (B-1) 100 00 total) by l mg tablet mouth daily. clopidogreL 2021-0 Yes 75mg QD Take 1 Meth valencia (PLAVIX) 75 7-08 tablet (75 st mg tablet 00:00: mg total) Hos efren 00 by mouth l daily. aspirin 2021-0 Yes 81mg QD Take 1 Methodi (ECOTRIN) 7-08 tablet (81 st 81 MG 00:00: mg total) Hospita enteric 00 by mouth l coated daily. tablet atorvastati Yes 40mg QD Take 1 Meth valencia n (LIPITOR) 7-08 tablet (40 st 40 mg 00:00: mg total) Hospita tablet 00 by mouth l nightly. B Yes 1{tbl} QD Take 1 Methodi complex-vit 7-[address] nix 00:00: mouth Hospita C-folic 00 daily. l acid (FOLBEE PLUS 5 MG) 5 mg tablet per tablet insulin Yes 0U Q.[id number] Inject [facility] lispro 09-24 [id number] 0-12 Units s t (ADMELOG) 00:00: 3D [...] mg tablet mouth daily. traMADol 2021- No [id number] 50mg Q6H Take 50 mg M ethodi (ULTRAM) 50 09-21-[address] mg tablet 17:22: 00:00 every 6 [facility]osp [facility] 12 :00 (six) l hours as needed for moderate pain .Acute Pain. traMADol 2021- [place] [id number] 50mg Q6H Take 50 mg M ethodi (ULTRAM) 50 09-21-[address] mg tablet 17:22: 00:00 every 6 [facility] 12 :00 (six) l hours as needed for moderate pain .Acute Pain. ondansetron 2021- No Take by Mi thodi (ZOFRAN) 8 09-21- mouth. st MG tablet 17:21: 00:00 Hospita 55 :00 l ondansetron 2021- No Take by Mi thodi (ZOFRAN) 8 09-21- mouth. st MG tablet 17:21: 00:00 Hospita 55 :00 l leuprolide 2021- No Lupron Meth valencia (LUPRON -09-[address] DEPOT, 3 17:21: 00:00 11.25 mg [facility] MONTH,) 32 :00 (3 month) l 11.25 mg intramuscu injection lar syringe kit ONCE A MONTH leuprolide 2021-2021- No Lupron Meth valencia (LUPRON 09-[address] DEPOT, 3 17:21: 00:00 11.25 mg [facility] MONTH,) 32 :00 (3 month) l 11.25 mg intramuscu injection lar syringe kit ONCE A MONTH isosorbide 2021-2021- No 30mg QD Take 30 mg [facility] mononitrate 09-[address] (IMDUR) 30 17:21: 00:00 daily. [facility] MG 24 hr 24 :00 l tablet isosorbide 2021-2021- No 30mg QD Take 30 mg [facility] mononitrate 09-[address] (IMDUR) 30 17:21: 00:00 daily. [facility] MG 24 hr 24 :00 l tablet gabapentin 2021-2021- No 600mg QD Take 600 M ethodi (NEURONTIN) 7-05 07-[address] 600 mg 17:21: 00:00 mouth Hospita tablet 17 :00 nightly. l gabapentin 2021-2021- No 600mg QD Take 600 M ethodi (NEURONTIN) 7-05 07-[address] 600 mg 17:21: 00:00 mouth Hospita tablet 17 :00 nightly. l gabapentin 2021-2021- No 300mg Q.5D Take 300 M ethodi (NEURONTIN) 7-05 07-[address] 300 mg 17:21: 00:00 mouth 2 Hospita capsule 07 :00 (two) l times a day. One tab in AM. gabapentin 2021-0 2021- No 300mg Q.5D Take 300 M ethodi (NEURONTIN) 7-05 07-[address] 300 mg 17:21: 00:00 mouth 2 Hospita capsule 07 :00 (two) l times a day. One tab in AM. citalopram No 20mg QD Take 20 mg [facility] (CeleXA) 20 09-21-[address] MG tablet 17:20: 00:00 every Hospit a 40 :00 morning. l citalopram No 20mg QD Take 20 mg [facility] (CeleXA) 20 09-[address] MG tablet 17:20: 00:00 every Hospit a 40 :00 morning. l buPROPion No 300mg QD Take 300 Me thodi XL 09-21-[address] (WELLBUTRIN 17:19: 00:00 mouth [facility]osp [facility] XL) 300 MG 41 :00 every l 24 hr morning. tablet buPROPion No 300mg QD Take 300 Me thodi XL 09-21-[address] (WELLBUTRIN 17:19: 00:00 mouth [...] THREE l per tablet TIMES DAILY carbidopa-l 2020-0 2020- No TAKE 3 Met hodi evodopa 5-03 12-[address] (SINEMET) 00:00: 00:00 MOUTH Hospit a 25-100 mg 00 :00 THREE l per tablet TIMES DAILY carbidopa-l 2020-0 2020- No TAKE 3 Met hodi evodopa 5-03 12-[address] (SINEMET) 00:00: 00:00 MOUTH Hospit a 25-100 mg 00 :00 THREE l per tablet TIMES DAILY simvastatin Yes 40mg 40 mg, [facility] ers (ZOCOR) 3-21 Oral, QHS, ity of tablet 40 02:00: [place] dose [place] 00 on [facility] Medical 06/06/20 at Branch 2100, Until Discontinu ed, Routine predniSONE Yes 50mg Take 50 mg U nivers 50 mg 3-20 by mouth ity of tablet 19:26: daily. [address] vilazodone Yes Take by [facility] ers (VIIBRYD) 3-20 mouth. ity of 10 mg Tab 19:26: [address] eszopiclone Yes 3mg Take 3 mg U nivers 3 mg tablet 3-20 by mouth ity of 19:26: at [place] [address] bedtime. Medical Branch melatonin Yes Take by [facility] rs 10 mg Tab 3-20 mouth. ity of 19:26: [address] empaglifloz Yes 1{tbl} Take 1 Un everette in-linaglip 3-20 tablet by ity of tin 19:26: mouth [place] (GLYXAMBI) daily. Medical 25-5 mg Tab Branch clopidogreL Yes 75mg Take 75 mg Univers 75 mg 3-20 by mouth ity of tablet 19:26: daily. [place] [address] Medical [place] gabapentin 0 Yes 300mg Take 300 Un eve[place] 300 mg 3-20 mg by ity of capsule 19:26: mouth 3 [place] [address] (three) Medical times Branch daily. isosorbide Yes 30mg Take 30 mg U nivers mononitrate 3-20 by mouth. ity of 30 mg 24 hr 19:26: [place] [address] Medical Branch simvastatin Yes Take by Uni vers 80 mg 3-20 mouth at ity of tablet 19:26: bedtime. [place] [address] Medical Branch carbidopa-l Yes 3{tbl} Take 3 Un eve[place] evodopa 3-20 tablets by ity of 25-100 mg 19:26: mouth 3 [place] tablet 49 (three) Medical times Branch daily. predniSONE 0 Yes 50mg Take 50 mg U nivers 50 mg 3-20 by mouth ity of tablet 19:26: daily. [place] [address] Medical Branch vilazodone 0 Yes Take by [facility] ers (VIIBRYD) 3-20 mouth. ity of 10 mg Tab 19:26: [place] [address] Medical Branch eszopiclone 0 Yes 3mg Take 3 mg U nivers 3 mg tablet 3-20 by mouth ity of 19:26: at [place] [address] bedtime. Medical Branch melatonin 0 Yes [facility] Tab 3-20 mouth. ity of 19:26: [place] [address] Medical Branch empaglifloz Yes 1{tbl} Take 1 Un everette in-linaglip 3-20 tablet by ity of tin 19:26: mouth [place] (GLYXAMBI) 49 daily. Medical 25-5 mg Tab Branch clopidogreL 0 Yes 75mg Take 75 mg Univers 75 mg 3-20 by mouth ity of tablet 19:26: daily. [place] [address] Medical Branch gabapentin 0 Yes 300mg Take 300 Un everette 300 mg 3-20 mg by ity of capsule 19:26: mouth 3 [place] 49 (three) Medical times Branch daily. isosorbide 0 Yes 30mg Take 30 mg U nivers mononitrate 3-20 by mouth. ity of 30 mg 24 hr 19:26: [place] [address] Medical Branch simvastatin 0 Yes Take by Uni vers 80 mg 3-20 mouth at ity of tablet 19:26: bedtime. [place] [address] Medical Branch carbidopa-l 0 Yes 3{tbl} Take 3 Un everette evodopa 3-20 tablets by ity of 25-100 mg 19:26: mouth 3 [place] tablet 49 (three) Medical times Branch daily. predniSONE 0 Yes 50mg Take 50 mg U nivers 50 mg 3-20 by mouth ity of tablet 19:26: daily. [place] [address] Medical Branch vilazodone Yes Take by [facility] ers (VIIBRYD) 3-20 mouth. ity of 10 mg Tab 19:26: [place] [address] Medical Branch eszopiclone 0 Yes 3mg Take 3 mg U nivers 3 mg tablet 3-20 by mouth ity of 19:26: at [place] [address] bedtime. Medical Branch melatonin Yes Take by Unive rs 10 mg Tab 3-20 mouth. ity of 19:26: [place] [address] Medical Branch empaglifloz Yes 1{tbl} Take 1 Un everette in-linaglip 3-20 tablet by ity of tin 19:26: mouth [place] (GLYXAMBI) daily. Medical 25-5 mg Tab Branch clopidogreL 0 Yes 75mg Take 75 mg Univers 75 mg 3-20 by mouth ity of tablet 19:26: daily. [place] [address] Medical Branch gabapentin Yes 300mg Take 300 Un everette 300 mg 3-20 mg by ity of capsule 19:26: mouth 3 [place] [address] (three) Medical times Branch daily. isosorbide Yes 30mg Take 30 mg U nivers mononitrate 3-20 by mouth. ity of 30 mg 24 hr 19:26: [place] [address] Medical Branch simvastatin Yes Take by Uni vers 80 mg 3-20 mouth at ity of tablet 19:26: bedtime. [place] [address] Medical Branch carbidopa-l Yes 3{tbl} Take 3 Un everette evodopa 3-20 tablets by ity of 25-100 mg 19:26: mouth 3 [place] tablet 49 (three) Medical times Branch daily. predniSONE 0 Yes 50mg Take 50 mg U nivers 50 mg 3-20 by mouth ity of tablet 19:26: daily. [place] [address] Medical Branch vilazodone 0 Yes Take by [facility] ers (VIIBRYD) 3-20 mouth. ity of 10 mg Tab 19:26: [place] [address] Medical Branch eszopiclone Yes 3mg Take 3 mg U nivers 3 mg tablet 3-20 by mouth ity of 19:26: at [place] [address] bedtime. Medical Branch melatonin Yes Take by Univ ers 10 mg Tab 3-20 mouth. ity of 19:26: [place] [address] Medical Branch empaglifloz 0 Yes 1{tbl} Take 1 Un everette in-linaglip 3-20 tablet by ity of tin 19:26: mouth [place] (GLYXAMBI) 49 daily. Medical 25-5 mg Tab Branch clopidogreL 0 Yes 75mg Take 75 mg Univers 75 mg 3-20 by mouth ity of tablet 19:26: daily. [place] [address] Medical Branch gabapentin 2020-0 Yes 300mg Take 300 Un everette 300 mg 3-20 mg by ity of capsule 19:26: mouth 3 [place] [address] (three) Medical times Branch daily. isosorbide 0 Yes 30mg Take 30 mg U nivers mononitrate 3-20 by mouth. ity of 30 mg 24 hr 19:26: [place] [address] Medical Branch simvastatin 0 Yes Take by Uni vers 80 mg 3-20 mouth at ity of tablet 19:26: bedtime. [address] Branch carbidopa-l Yes 3{tbl} Take 3 Un [place] evodopa 3-20 tablets by ity of 25-100 mg 19:26: mouth 3 [place] tablet 49 (three) Medical times Branch daily. olmesartan 2020- No 20mg Take 20 mg Univers 20 mg 3-20 03-20 by mouth. ity of tablet 17:28: 00:00 [place] 53 :00 Medical Branch predniSONE 0 Yes 50mg 50 mg, Unive rs (DELTASONE) 3-20 Oral, ity of tablet 50 14:00: DAILY, [place] mg 00 First dose Medical on [facility] 06/06/20 at 0900, Until Discontinu ed, Routine isosorbide Yes 30mg 30 mg, Unive rs mononitrate 3-20 Oral, ity of (IMDUR) 24 14:00: DAILY, [place] hr tablet 00 First dose Medi tony 30 mg on [facility] 06/06/20 at 0900, Until Discontinu ed, Routine clopidogreL 0 Yes 75mg 75 mg, Univ ers (PLAVIX) 3-20 Oral, ity of tablet 75 14:00: DAILY, [place] mg 00 First dose Medical on [facility] 06/06/20 at 0900, Until Discontinu ed, Routine ergocalcife 0 Yes [id number] 50,000 Un everette rol 3-20 Units, ity of (vitamin 14:00: Oral, [place] d2) 00 QWEEKLY, Medical (CALCIFEROL First dose Br anch ) capsule on [facility] 50,000 06/06/20 at Units 0900, Until Discontinu ed, Routine carbidopa-l 2020-0 Yes 2{tbl} 2 tablet, Univers evodopa 3-20 Oral, TID, ity of (SINEMET-25 13:00: First dose /100) 00 on [facility] Medical 25-100 mg 06/06/20 at Bran ch tablet 2 0800, tablet Until Discontinu ed, Routine gabapentin 0 Yes 300mg 300 mg, Uni vers (NEURONTIN) 3-20 Oral, TID, it y of capsule 300 13:00: First dose [place] mg 00 on [facility] Medical 06/06/20 at Branch 0800, Until Discontinu ed, Routine zinc 2020-0 Yes 220mg 220 mg, Univers sulfate 3-20 Oral, TID, ity of (ORAZINC) 13:00: First dose [place] capsule 220 00 on [facility] Medica l mg 06/06/20 at Branch 0800, Until Discontinu ed, Routine ascorbic 2020-0 Yes 500mg 500 mg, Unive rs acid 3-20 Oral, BID, ity of (vitamin C) 13:00: First dose [place] (VITAMIN C) 00 on Sat Medica l tablet 500 06/06/20 at Bra nch mg 0800, Until Discontinu ed, Routine Sliding 0 Yes Subcutaneo Univ ers Scale 3-20 us, AC, ity of Insulin-Reg 12:30: First dose [place] ular + Fsbg 00 on [facility] Medica l Testing 06/06/20 at Branch 0730, Until Discontinu ed, Routine melatonin 2020-0 Yes 9mg 9 mg, Univers (MELATIN) 3-20 Oral, ity of tablet 9 mg 11:42: QHSPRN, [place] 56 Starting Medical [facility] Branch 06/06/20 at 0642, Until Discontinu ed, Insomnia heparin 2020-0 Yes 5000U 5,000 Univers (porcine) 3-20 Units, ity of injection 11:00: Subcutaneo [place] 5,000 Units 00 us, Q8H, Medi tony First dose Branch on 06/06/20 at 0600, [...] IV ity of (D50W) 09:08: Push, PRN, [place] injection 47 Starting Medica l 25 mL Sat Branch 06/06/20 at 0408, Until Discontinu ed, ANITA, Blood Glucose < or = 70 mg/dL and patient is unable to swallow or has mental status changes. ondansetron Yes 4mg 4 mg, Slow Univers (ZOFRAN 3-20 IV Push, ity of (PF)) 09:08: [facility] [place] injection 4 00 Starting Medi tony mg Sat Branch 06/06/20 at 0408, Until Discontinu ed, Routine, Nausea and Vomiting (N/V) traMADoL 2020- No 50mg 50 mg, Univer s (ULTRAM) 20 -22 Oral, ity of tablet 50 09:07: 09:06 Q8HPRN, [place] mg 55 :55 Starting Medical Sat Branch 06/06/20 at 0407, Until 06/08/20 at 0406, Routine, Pain (scale 4-6) acetaminoph Yes 650mg 650 mg, Un everette en 3-20 Oral, ity of (TYLENOL) 09:07: Q6Avis, [place] tablet 650 53 Starting Medic al mg Sat Branch 06/06/20 at 0407, Until Discontinu ed, Routine, Pain (scale 1-3) NaCl 0.9% 2020-0 202- No 1000mL at 999 Uni vers (NS) bolus 3-20 03-20 mL/hr, ity of infusion 05:30: 05:11 1,000 mL, [place] as 1,000 mL 00 :00 IV Medical Piggyback, Branch ONCE, 1 dose, 06/06/20 at 0030, STAT ascorbic 2020-0 Yes [id number] 500mg Take 1 U nivers acid, 3-20 tablet by ity of vitamin C, 00:00: mouth 2 [place] 500 mg 00 (two) Medical tablet times Branch daily. Cholecalcif 2020-0 Yes [id number] 1000U Take 1 Univers arjun, 3-20 capsule by ity of Vitamin D3, 00:00: mouth [place] 25 mcg 00 daily. Medical (1,000 Branch unit) capsule zinc 2020-0 Yes [id number] 220mg Take 1 Unive rs sulfate 220 3-20 capsule by it y of (50) mg 00:00: mouth 3 [place] capsule 00 (three) Medical times Branch daily. ascorbic 2020-0 Yes [id number] 500mg Take 1 U nivers acid, 3-20 tablet by ity of vitamin C, 00:00: mouth 2 [place] 500 mg 00 (two) Medical tablet times Branch daily. Cholecalcif 2020-0 Yes [id number] 1000U Take 1 Univers arjun, 3-20 capsule by ity of Vitamin D3, 00:00: mouth [place] 25 mcg 00 daily. Medical (1,000 Branch unit) capsule zinc 2020-0 Yes [id number] 220mg Take 1 Unive rs sulfate 220 3-20 capsule by it y of (50) mg 00:00: mouth 3 [place] capsule 00 (three) Medical times Branch daily. ascorbic 2020-0 Yes [id number] 500mg Take 1 U nivers acid, 3-20 tablet by ity of vitamin C, 00:00: mouth 2 [place] 500 mg 00 (two) Medical tablet times Branch daily. Cholecalcif 2020-0 Yes [id number] 1000U Take 1 Univers arjun, 3-20 capsule by ity of Vitamin D3, 00:00: mouth [place] 25 mcg 00 daily. Medical (1,000 Branch unit) capsule zinc 2020-0 Yes [id number] 220mg Take 1 Unive rs sulfate 220 3-20 capsule by it y of (50) mg 00:00: mouth 3 [place] capsule 00 (three) Medical times Branch daily. ascorbic Yes [id number] 500mg Take 1 U nivers acid, 3-20 tablet by ity of vitamin C, 00:00: mouth 2 [place] 500 mg 00 (two) Medical tablet times Branch daily. Cholecalcif Yes [id number] 1000U Take 1 Univers arjun, 3-20 capsule by ity of Vitamin D3, 00:00: mouth [place] 25 mcg 00 daily. Medical (1,000 Branch unit) capsule zinc Yes [id number] 220mg Take 1 Unive rs sulfate 220 3-20 capsule by it y of (50) mg 00:00: mouth 3 [place] capsule 00 (three) Medical times Branch daily. acetaminoph 2021- No [id number] 650mg Take 2 Univers en 325 mg 3-20 03-21 tablets by ity of tablet 00:00: 04:59 mouth [place] 00 :00 every 6 Medical (six) Branch hours as needed for Pain (scale 1-3) or Temp > 38.5 C. acetaminoph 2021- No [id number] 650mg Take 2 Univers en 325 mg 3-20 03-21 tablets by ity of tablet 00:00: 04:59 mouth [place] 00 :00 every 6 Medical (six) Branch hours as needed for Pain (scale 1-3) or Temp > 38.5 C. acetaminoph 2021- No [id number] 650mg Take 2 Univers en 325 mg 3-20 03-21 tablets by ity of tablet 00:00: 04:59 mouth [place] 00 :00 every 6 Medical (six) Branch hours as needed for Pain (scale 1-3) or Temp > 38.5 C. acetaminoph 2021- No [id number] 650mg Take 2 Univers en 325 mg 3-20 03-21 tablets by ity of tablet 00:00: 04:59 mouth [place] 00 :00 every 6 Medical (six) Branch hours as needed for Pain (scale 1-3) or Temp > 38.5 C. ondansetron 2019-03 Yes Take by Met hodi [...] 2019-03- No INJECT Methodi 0.25 mg or -03 26-[address] 0.5 mg(2 00:00: 00:00 UNDER [...] hr 20 l tablet traMADol 2019-03 Yes [id number] 50mg Q6H Take 50 mg Me thodi [...] hr 20 l tablet traMADol 2019-03 Yes [id number] 50mg Q6H Take 50 mg Me thodi [...] mouth Hospita tablet 19 nightly. l buPROPion 0 Yes 300mg QD Take [address] [...] daily. Center 10-5 mg per tablet simvastatin 2019-0 Yes 80mg QD Take 80 [facility] ([facility] 80 8-19 by [facility] tablet 16:16: [facility]ly. [facility] gabapentin 2019-0 Yes 300mg Q.[id number] Take [address] [facility] (NEURONTIN) 8-19 [id number] mg by L [facility]kes 300 MG 16:16: [...] [facility] gabapentin 2020-0 Yes 300mg Q.[id number] Take [address] [facility] (NEURONTIN) 8-19 [id number] mg by L ukes 300 MG 16:16: [...] [facility] gabapentin 2020-0 Yes 300mg Q.[id number] Take [address] (NEURONTIN) 8-19 [id number] mg by L ukes 300 MG 16:16: [...] [facility] 16:16: mouth [facility] 27 daily. Center carbidopa-l 2020-0 2020- No 3{tbl} Q.[id number] Take 3 [facility] evodopa 08-21- [id number] tablets by st (Sinemet) 00:00: 00:00 3D mouth 3 [facility] 25-100 mg 00 :00 (three) l per tablet times a day. carbidopa-l 2020-0 2020- No 3{tbl} Q.[id number] Take 3 [facility] evodopa 08-21- [id number] tablets by st (Sinemet) 00:00: 00:00 3D mouth 3 [facility] 25-100 mg 00 :00 (three) l per tablet times a day. olmesartan 2020-0 Yes [facility] (BENICAR[facility]-25 [facility] 20 MG 00:00: Hospita tablet 00 l olmesartan 2020-0 Yes [facility] ([facility]IC[facility] 20 MG 00:00: Hospita tablet 00 l olmesartan 2020-0 2021- No 20mg QD Take 20 mg [facility] (BENICAR) 06-11 07-[address] 20 MG 00:00: 00:00 daily. [facility]ospita tablet 00 :00 l olmesartan 2020-0 2021- No 20mg QD Take 20 mg [facility] (BENICAR) 06-11-[address] 20 MG 00:00: 00:00 daily. [facility]ospita tablet 00 :00 l predniSONE 2019- Yes 1 tab in Met [facility] (DELTASONE) 1-21 AM, [address] 5 mg tablet 00:00: in PM Hospi ta 00 l predniSONE 2019- Yes 1 tab in [facility] (DELTASONE) 1-21 AM, [address] 5 mg tablet 00:00: in PM Hospi ta 00 l predniSONE 2018-2021- No 1 tab in Mi [facility] (DELTASONE) 04-09 07-05 AM, [address] 5 mg tablet 00:00: 00:00 in PM [facility] 00 :00 l predniSONE 2018-2021- No 1 tab in Me [facility] (DELTASONE) 04-09 0705 AM, [address] 5 mg tablet 00:00: 00:00 in PM [facility] 00 :00 l Immunizations Ordered Immunization Filled Immunization Date Status Commen ts Source Name Name PFIZER COVID-19 MRNA 2020-05-17 Completed Meth [facility] VACCINATION 00:00:00 [facility] PFIZER COVID-19 MRNA 2020-05-17 Completed [facility]ist VACCINATION 00:00:00 [facility] PFIZER COVID-19 MRNA 2020-05-17 Completed [facility] VACCINATION 00:00:00 Hospital PFIZER COVID-19 MRNA 2020-05-17 Completed Meth odist VACCINATION 00:00:00 [facility] PFIZER COVID-19 MRNA 2020-04-26 Completed Meth odist VACCINATION 00:00:00 [facility] PFIZER COVID-19 MRNA 2020-04-26 Completed Meth odist VACCINATION 00:00:00 [facility] PFIZER COVID-19 MRNA 2020-04-26 Completed Meth odist VACCINATION 00:00:00 [facility] PFIZER COVID-19 MRNA 2020-04-26 Completed Meth odist VACCINATION 00:00:00 Hospital Vital Signs Vital Name Observation Time Observation Value Comments Source HEIGHT 2019-10-21 00:00:00 177.8 cm WEIGHT 2019-10-21 00:00:00 120.203 kg Systolic blood 2020-06-06 18:01:00 116 mm[Hg] Univer sity of pressure [facility] Diastolic blood 2020-06-06 18:01:00 78 mm[Hg] Unive rsity of [facility] Heart rate 2020-06-06 18:01:00 88 /min [facility] Respiratory rate 2020-06-06 17:57:00 18 /min [facility] Oxygen saturation in 2020-06-06 16:50:00 95 /min [facility] Arterial blood by [facility] Pulse oximetry Branch Body temperature 2020-06-06 16:34:00 37.06 [facility] height 2020-06-06 09:17:00 177.8 cm [facility] Body weight 2020-06-06 09:17:00 108.5 kg [facility] BMI 2020-06-06 09:17:00 34.32 kg/m2 [facility] HEIGHT 2019-10-21 00:00:00 177.8 cm WEIGHT 2019-10-21 00:00:00 120.203 kg Body height 2021-10-12 18:02:00 177.8 cm [facility] Body weight 2021-10-12 18:02:00 97.523 kg [facility] BMI 2021-10-12 18:02:00 30.85 kg/m2 [facility] Systolic blood 2021-09-29 16:58:01 133 mm[Hg] [facility] pressure Diastolic blood 2021-09-29 16:58:01 72 mm[Hg] [facility] pressure Heart rate 2021-09-29 16:58:01 73 /min [facility] Body temperature 2021-09-29 16:58:01 36.17 Elizabet [facility] Respiratory rate 2021-09-29 16:58:01 18 /min [facility] Oxygen saturation in 2021-09-29 16:58:01 91 /min [facility] Arterial blood by Pulse oximetry Procedures Procedure Date / Time Performing Clinician Source Performed POC GLUCOSE 2021-09-29 16:57:00 Deshawn Flores COVID-19 QUALITATIVE 2021-09-29 15:52:00 Deshawn Flores [facility] RT-PCR POC GLUCOSE 2021-09-29 13:19:00 Deshawn Flores HC COMPLETE BLD COUNT 2021-09-29 09:29:00 Tiki Castle [facility] W/AUTO DIFF BASIC METABOLIC PANEL 2021-09-29 09:29:00 Tiki Castle [facility] ESTIMATED GFR 2021-09-29 09:29:00 Tiki Castle [facility] POC GLUCOSE 2021-09-29 01:18:00 Deshawn Flores POC GLUCOSE 2021-09-28 20:07:00 Deshawn Flores ECG PRE/POST OP 2021-09-28 19:07:55 Corrine [facility] XR CHEST 1 VW PORTABLE 2021-09-28 19:05:15 Tiki Castle [facility] EP INSERT ELECTRODE 2021-09-28 18:28:03 France Khan [facility] PACEMAKER OR DEFIBRILLATOR POC GLUCOSE 2021-09-28 16:19:00 Sandra, [facility] ABO AND RH CONFIRMATION 2021-09-28 16:02:00 [facility] BY PROTOCOL POC GLUCOSE 2021-09-28 13:04:00 Sandra, [facility] TYPE AND SCREEN 2021-09-28 10:34:00 [facility] BASIC METABOLIC PANEL 2021-09-28 10:25:00 [facility] HC COMPLETE BLD COUNT 2021-09-28 10:25:00 [facility] W/AUTO DIFF PROTHROMBIN TIME WITH INR 2021-09-28 10:25:00 [facility] ESTIMATED GFR 2021-09-28 10:25:00 [facility] POC GLUCOSE 2021-09-28 01:34:00 Sandra, [facility] POC GLUCOSE 2021-09-27 22:10:00 Sandra, [facility] POC GLUCOSE 2021-09-27 16:55:00 Sandra, [facility] POC GLUCOSE 2021-09-27 01:42:00 Sandra, [facility] POC GLUCOSE 2021-09-26 22:25:00 Sandra, [facility] ECG 12-LEAD 2021-09-26 18:09:57 Sandra, [facility] POC GLUCOSE 2021-09-26 15:50:00 Sandra, [facility] POC GLUCOSE 2021-09-26 12:40:00 Sandra, [facility] POC GLUCOSE 2021-09-26 01:45:00 Sandra, [facility] POC GLUCOSE 2021-09-25 21:25:00 Sandra, [facility] POC GLUCOSE 2021-09-25 16:35:00 Deshawn Flores [facility] POC GLUCOSE 2021-09-25 01:40:00 Laeeq, [facility] POC GLUCOSE 2021-09-24 21:30:00 Laeeq, [facility] POC GLUCOSE 2021-09-24 16:36:00 Laeeq, [facility] POC GLUCOSE 2021-09-24 12:29:00 Laeeq, [facility] POC GLUCOSE 2021-09-24 01:35:00 Laeeq, [facility] POC GLUCOSE 2021-09-23 22:13:00 Laeeq, [facility] POC GLUCOSE 2021-09-23 17:13:00 Laeeq, [facility] COVID-19 ANTI-SPIKE IGG 2021-09-23 08:41:[address] [facility] ANTIBODY TITER Rolando COVID-19 SEROLOGY PATIENT 2021-09-23 08:41:00 Wilmer [facility] SURVEILLANCE Rolando HC COMPLETE BLD COUNT 2021-09-23 08:41:00 Laeeq, [facility] W/AUTO DIFF COMPREHENSIVE METABOLIC 2021-09-23 08:41:00 Laeeq, [facility] PANEL MAGNESIUM LEVEL 2021-09-23 08:41:00 Laeeq, [facility] PHOSPHORUS LEVEL 2021-09-23 08:41:00 Laeeq, [facility] ESTIMATED GFR 2021-09-23 08:41:00 Laeeq, [facility] POC GLUCOSE 2021-09-23 01:51:00 Laeeq, [facility] TTE COMPLETE, WO 2021-09-22 19:25:00 Laeeq, [facility] CONTRAST, W DOPPLER ([id number]) POC GLUCOSE 2021-09-22 13:07:00 Laeeq, [facility] MRI BRAIN WO CONTRAST 2021-09-22 11:01:34 Laeeq, [facility] HC COMPLETE BLD COUNT 2021-09-22 10:09:00 Laeeq, [facility] W/AUTO DIFF COMPREHENSIVE METABOLIC 2021-09-22 10:09:00 Lae, [facility] PANEL MAGNESIUM LEVEL 2021-09-22 10:09:00 Laeeq, [facility] PHOSPHORUS LEVEL 2021-09-22 10:09:00 Laeeq, [facility] ESTIMATED GFR 2021-09-22 10:09:00 Laeeq, [facility] US CAROTID DUPLEX 2021-09-22 03:47:21 [facility] BILATERAL Sara POC GLUCOSE 2021-09-22 01:51:00 Laeeq, [facility] POC GLUCOSE 2021-09-21 22:20:00 Laeeq, [facility] LACTIC ACID LEVEL, SEPSIS 2021-09-21 19:31:00 Laeeq, [facility] - NOW AND REPEAT 2X EVERY 3 HOURS AMMONIA LEVEL 2021-09-21 19:31:00 Laeeq, [facility] VITAMIN B12 LEVEL 2021-09-21 19:31:00 Laeeq, [facility] THYROID STIMULATING 2021-09-21 19:31:00 Laeeq, [facility] HORMONE VITAMIN B1 LEVEL, WHOLE 2021-09-21 19:31:00 Laeeq, [facility] BLOOD SYPHILIS TREPONEMA SCREEN 2021-09-21 19:31:00 Laeeq, [facility] WITH RPR CONFIRMATION (REVERSE ALGORITHM) TROPONIN T 2021-09-21 19:31:00 Laeeq, [facility] VITAMIN D 25 HYDROXY 2021-09-21 19:24:00 Laeeq, [facility] LEVEL CT ANGIOGRAM NECK W WO 2021-09-21 18:32:06 Laemaru [facility] CONTRAST CT ANGIOGRAM HEAD W WO 2021-09-21 18:30:49 Lois [facility] Met [facility] CONTRAST COVID-19 QUALITATIVE 2021-09-21 17:59:00 Ramon Yi Met [facility] RT-PCR HEMOGLOBIN A1C 2021-09-21 17:59:00 Laeeq, [facility] POC GLUCOSE 2021-09-21 17:58:00 Lae, [facility] VENOUS BLOOD GAS 2021-09-21 17:54:00 [facility] LIPID PANEL 2021-09-21 17:52:00 [facility], [facility] XR CHEST 1 VW PORTABLE 2021-09-21 17:32:48 Ramon Yi [facility] [place] CRITICAL CARE, E/M 2021-09-21 17:16:17 [facility] ED PRELIMINARY 2021-09-21 17:16:17 [facility] HEAD WO CONTRAST 2021-09-21 16:37:26 Ramon Yi [facility] HC COMPLETE BLD COUNT 2021-09-21 15:55:00 [facility] W/AUTO DIFF COMPREHENSIVE METABOLIC 2021-09-21 15:55:00 Kd [facility] PANEL MAGNESIUM LEVEL 2021-09-21 15:55:00 Kd [facility] LACTIC ACID LEVEL, SEPSIS 2021-09-21 15:55:00 [facility], [facility] - NOW AND REPEAT 2X EVERY 3 HOURS TROPONIN T 2021-09-21 15:55:00 [facility] B NATRIURETIC PEPTIDE 2021-09-21 15:55:00 [facility]FR 2021-09-21 15:55:00 Ramon Yi [facility] ECG 12-LEAD 2021-09-21 15:45:18 Kd [facility] POC GLUCOSE 2021-09-21 15:41:00 [facility] FOR RELEASE 2020-06-09 05:01:00 Doctor Unassigned, [facility] [place] [facility] TROPONIN I 2020-06-06 15:54:00 Arielle Murillo [facility] LIPID PANEL ([id number])(TOTAL 2020-06-06 15:54:00 Arielle Murillo [facility] CHOLESTEROL, Medical Branch TRIGLYCERIDES, HDL) N-TERMINAL PRO-BNP 2020-06-06 15:54:00 Arielle Murillo [facility] COVID-19 (MOLECULAR 2020-06-06 08:46:00 Singer Hamzah [facility] TESTING Medical Branch NUCLEIC ACID AMPLIFICATION) COVID-19 (ID NOW RAPID 2020-06-06 04:41:00 Singer Hamzah [facility] TESTING) Medical Branch XR CHEST 1 VW 2020-06-06 03:04:04 Singer [facility] TROPONIN I 2020-06-06 02:53:00 [facility] METABOLIC PANEL 2020-06-06 02:53:00 Singer Hamzah [facility] ([id number]) Medical Branch CBC WITH DIFF 2020-06-06 02:53:00 [facility] GLYCOSYLATED HEMOGLOBIN 2020-06-06 02:53:00 [facility] (A1C[facility] Medical Branch URINALYSIS 2020-06-06 02:53:00 Singer [facility] NOTICE OF PRIVACY 2020-06-06 02:26:49 Doctor Unassigned, [facility] PRACTICES [place] [facility] Plan of Care Planned Activity Planned Date Details Comments Source Future Scheduled 2022-01-29 COVID-19 VACCINE (3 - [facility] Test 09:22:42 Booster for Pfizer series) [code = COVID-19 VACCINE (3 - Booster for Pfizer series)] Future Scheduled 2022-01-29 INFLUENZA VACCINE [facility] Test 09:22:42 [code = INFLUENZA VACCINE] Future Scheduled 2022-01-29 HEPATITIS B VACCINES Met [facility] Test 09:22:42 (1 of 3 - 3-dose series) [code = HEPATITIS B VACCINES (1 of 3 - 3-dose series)] Future Scheduled 2022-01-29 Hepatitis C screening [facility] Test 09:22:42 (procedure) [code = 035789509] Future Scheduled 2022-01-29 COLONOSCOPY SCREENING [facility] Test 09:22:42 [code = COLONOSCOPY SCREENING] Future Scheduled 2022-01-29 SHINGLES VACCINES (1 [facility] Test 09:22:42 of 2) [code = SHINGLES VACCINES (1 of 2)] Future Scheduled 2022-01-29 65+ PNEUMOCOCCAL [facility] Test 09:22:42 VACCINE (1 - PCV) [code = 65+ PNEUMOCOCCAL VACCINE (1 - PCV)] Future Scheduled 2021-12-24 HEPATITIS B VACCINES Met [facility] Test 17:00:45 (1 of 3 - 3-dose series) [code = HEPATITIS B VACCINES (1 of 3 - 3-dose series)] Future Scheduled 2021-12-24 Hepatitis C screening [facility] Test 17:00:45 (procedure) [code = 714031905] Future Scheduled 2021-12-24 COLONOSCOPY SCREENING [facility] Test 17:00:45 [code = COLONOSCOPY SCREENING] Future Scheduled 2021-12-24 SHINGLES VACCINES (1 Met [facility] Test 17:00:45 of 2) [code = SHINGLES VACCINES (1 of 2)] Future Scheduled 2021-12-24 65+ [facility]CCAL [facility] Test 17:00:45 VACCINE (1 - PCV) [code = 65+ PNEUMOCOCCAL VACCINE (1 - PCV)] Future Scheduled 2021-12-24 COVID-19 VACCINE (3 - Me [facility] Test 17:00:45 Booster for Pfizer series) [code = COVID-19 VACCINE (3 - Booster for Pfizer series)] Future Scheduled 2021-12-24 INFLUENZA VACCINE Method [facility] Hospital Test 17:00:45 [code = INFLUENZA VACCINE] Future Scheduled 2021-11-18 INFLUENZA VACCINE (#1) [facility] Test 00:00:00 [code = INFLUENZA Medical Ce nter VACCINE (#1)] Future Scheduled 2021-04-21 65+ PNEUMOCOCCAL [facility] Test 00:17:20 VACCINE (1 of 2 - PPSV23) [code = 65+ PNEUMOCOCCAL VACCINE (1 of 2 - PPSV23)] Future Scheduled 2021-04-21 Hepatitis C screening [facility] Test 00:17:20 (procedure) [code = 864257412] Future Scheduled 2021-04-21 COLONOSCOPY SCREENING [facility] Test 00:17:20 [code = COLONOSCOPY SCREENING] [...] PPSV23)] Future Scheduled 2021-04-21 [facility] 00:17:20 (procedure) [code = 258656742] Future Scheduled 2021-04-21 [facility] 00:17:20 [code = COLONOSCOPY SCREENING] [...] - Booster for Pfizer series)] Future Scheduled 2021-03-[address] [facility] Test 00:00:00 (12+) [code = Medical Center DEPRESSION SCREENING (12+)] Future Scheduled 2021-03-20 FALLS RISK SCREENING [facility] Test 00:00:00 [code = FALLS RISK Medical C enter SCREENING] Future Scheduled 2020-11-18 INFLUENZA VACCINE (#1) C [...] 00:00:00 (1 of 1 - Medical Center [id number] PCV13) [code = PNEUMOCOCCAL 65+ YRS (1 of 1 - [id number] PCV13)] Future Scheduled 2014 PNEUMOCOCCAL 65+ [facility] Test 00:00:00 (1 of 1 - Medical Center [id number] PCV13) [code = PNEUMOCOCCAL 65+ YRS (1 of 1 - [id number] PCV13)] Future Scheduled 2014 PNEUMOCOCCAL 65+ Y[facility] Test 00:00:00 (1 - PCV) [code = Medical nt PNEUMOCOCCAL 65+ YRS (1 - PCV)] Future Scheduled 1999-08-13 SHINGLES VACCINES (1 CHI [...] Medical Krissy ter VACCINE (1)] Future Scheduled 1950-02-12 COVID-19 VACCINE (#1) [facility] Test 00:00:00 [code = COVID-[address] VACCINE (#1)] Future Scheduled [address] [facility] Test 00:00:00 malignant neoplasm of Medica l Center colon (procedure) [code = 513842954] Future Scheduled [address] [facility] Test 00:00:00 malignant neoplasm of Medica l Center colon (procedure) [code = 725121645] Future Scheduled [address] [facility] Test 00:00:00 (combo) [code = CT Medical C enter Colonography (combo)] Future Scheduled [address] [facility] Test 00:00:00 malignant neoplasm of Medica l Center colon (procedure) [code = 559694914] Future Scheduled [address] [facility] Test 00:00:00 malignant neoplasm of Medica l Center colon (procedure) [code = 497818473] Future Scheduled [address] [facility] Test 00:00:00 malignant neoplasm of Medica l Center colon (procedure) [code = 043137393] Future Scheduled [address] [facility] Test 00:00:00 malignant neoplasm of Medica l Center colon (procedure) [code = 963595670] Future Scheduled 1949 Sigmoidoscopy [code [facility] Test [facility]] [facility] Start End Encounter Admission Attending Care Care Encounter Source Date/Time Date/Time Type Type Clinicians Facility Department ID 2020-12-23 Outpatient YEMI JEFFERSON [facility] Surgery [id number] [facility] 02:00:22 2022-01-26 2022-01-26 Transcribe Bindal, 1.2.840.1 [id number] Methodi 00:00:00 00:00:00 Orders Arron Tyson 82358.1.[address] 3.430.2.7 Hospit a .3.247884 l .8 2022-01-17 2022-01-17 Transcribe Bindal, 1.2.840.1 [id number] Methodi 00:00:00 00:00:00 Orders Arron Tyson 71089.1.[address] 3.430.2.7 Hospit a .3.130289 l .8 2022-01-04 2022-01-04 Outpatient BRENDA BLANCHARD [facility] [id number] Maulik 13:14:00 13:14:00 XENIA [id number] [facility] 2021-10-12 2021-10-12 Clinical 1.2.840.1 [id number] Methodi 14:00:00 14:29:[address] 3.430.2.7 Hospit a .3.956464 l .8 2021-10-12 2021-10-12 Clinical 1.2.840.1 [id number] Methodi 14:00:00 14:29:[address] 3.430.2.7 Hospit a .3.602331 l .8 2021-10-12 2021-10-12 Travel 1.2.840.1 1.2.579.176 [id number] Methodi 00:00:00 00:00:[address] 3.430.2.7 0.2.7.3.698 Ho spita .3.557988 084.8 l .8 2021-10-12 2021-10-12 Travel 1.2.840.1 1.2.254.170 [id number] Methodi 00:00:00 00:00:[address] 3.430.2.7 0.2.7.3.698 Ho spita .3.521493 084.8 l .8 2021-10-04 2021-10-04 Telephone Khan, 1.2.840.1 [id number] Methodi 00:00:00 00:00:[address] 3.430.2.7 Hospit a .3.255392 l .8 2021-10-04 2021-10-04 Telephone Khan, 1.2.840.1 [id number] Methodi 00:00:00 00:00:[address] 3.430.2.7 Hospit a .3.162299 l .8 2021-09-21 2021-09-29 [facility] Ramon Yi 1.2.840.1 [id number] Methodi 10:38:00 18:12:00 Shree Rosenthal 75460.1.[address] Sandra, Iti 3.430.2.7 Hos efren .3.971062 l .8 2021-09-21 2021-09-29 [facility] 1.2.840.1 [id number] Methodi 10:38:00 18:12:00 Shree Rosenthal 50419.1.[address] Sandra, Iti 3.430.2.7 Hos efren .3.793582 l .8 2021-09-28 2021-09-28 Surgery Khan, 1.2.840.1 [id number] Methodi 12:00:00 13:35:[address] 3.430.2.7 Hospit a .3.366562 l .8 2021-09-28 2021-09-28 Surgery Khan, 1.2.840.1 [id number] Methodi 12:00:00 13:35:[address] 3.430.2.7 Hospit a .3.816465 l .8 2021-09-22 2021-09-22 Documentat Provider, 1.2.840.1 [id number] Methodi 00:00:00 00:00:00 ion Unknown 31998.1.[address] 3.430.2.7 Hospit a .3.291916 l .8 2021-09-22 2021-09-22 Orders Radhames, 1.2.840.1 [id number] Methodi 00:00:00 00:00:00 Only Maite 25450.1.[address] 3.430.2.7 Hospit a .3.345268 l .8 2021-09-22 2021-09-22 Documentat Provider, 1.2.840.1 [id number] Methodi 00:00:00 00:00:00 ion Unknown 34618.1.[address] 3.430.2.7 Hospit a .3.050961 l .8 2021-09-22 2021-09-22 Orders Radhames, 1.2.840.1 [id number] Methodi 00:00:00 00:00:00 Only Maite 78364.1.[address] 3.430.2.7 Hospit a .3.967479 l .8 2021-09-21 2021-09-21 Travel 1.2.840.1 1.2.639.247 [id number] [id number] Methodi 00:00:00 00:00:[address] 3.430.2.7 0.2.7.3.698 Ho spita .3.514878 084.8 l .8 2021-09-21 2021-09-21 Travel 1.2.840.1 1.2.781.777 [id number] Methodi 00:00:00 00:00:[address] 3.430.2.7 0.2.7.3.698 Ho spita .3.857480 084.8 l .8 2021-03-03 2021-03-03 Refill Yaltho, 1.2.840.1 [id number] Methodi 00:00:00 00:00:[address] 3.430.2.7 Hospit a .3.803121 l .8 2021-03-03 2021-03-03 Refill Yaltho, 1.2.840.1 [id number] Methodi 00:00:00 00:00:[address] 3.430.2.7 Hospit a .3.871931 l .8 2020-07-20 2020-07-20 Refill Yaltho, 1.2.840.1 [id number] Methodi 00:00:00 00:00:[address] 3.430.2.7 Hospit a .3.632069 l .8 2020-06-11 2020-06-11 Yadiel Cruz 1.2.840.114 [id number] Univers 00:00:00 00:00:00 of Care Teagan Avendaño 350.1.13.10 [place] [id number] [facility] 403 Branch 2020-06-09 2020-06-09 Orders Doctor JEFFERSON 1.2.840.114 [id number] Univers 00:00:00 00:00:00 Only Unassigned, JUDITH 350.1.13.10 [facility] 4.2.7.2.686 Roger as [id number] [facility] 009 Branch 2020-06-08 2020-06-08 Transition Yadiel Patricia 1.2.840.114 [id number] Univers 00:00:00 00:00:00 of Care Teaganrigoberto Gillettey 350.1.13.10 [place] [id number] [facility] 403 Branch 2020-06-05 2020-06-06 Outpatient [facility] [id number] Univers 21:29:00 14:10:00 STONE leung of [facility] 2020-06-05 2020-06-06 Emergency Hamzah Barr [facility] 1.2.840. 114 [id number] Univers 21:29:00 14:10:00 Stone Adame 350.1.13.10 [place] [id number] [facility] 080 Branch 2020-05-17 2020-05-17 Clinical Ciro, 1.2.840.1 [id number] Methodi 16:49:22 16:52:11 Support Demetrio Parker50.1.[address] P. 3.430.2.7 Hospit a .3.808559 l .8 2020-04-30 2020-04-30 Telemedici Desi, 1.2.840.1 [id number] Methodi 09:41:31 09:51:08 ne Gilles Parker50.1.[address] 3.430.2.7 Hospit a .3.620055 l .8 2020-04-26 2020-04-26 Clinical 1.2.840.1 [id number] Methodi 16:28:39 16:43:[address] 3.430.2.7 Hospit a .3.629645 l .8 2020-04-26 2020-04-26 Travel 1.2.840.1 1.2.746.641 [id number] Methodi 00:00:00 00:00:[address] 3.430.2.7 0.2.7.3.698 Ho spita .3.709328 084.8 l .8 2020-03-03 2020-03-03 Outpatient JEFFERSON BRAGG [facility] [id number] Man 00:00:00 00:00:[address] 2020-02-26 2020-02-26 Outpatient SHKEDY, [facility] [id number] Man 00:00:00 00:00:00 SAMREEN [address] 2020-02-19 2020-02-19 Outpatient GISELA, [facility] [id number] Man 00:00:00 00:00:00 JOCELYN [address] 2020-02-19 2020-02-19 Outpatient GISELA, [facility] [id number] Man 00:00:00 00:00:00 JOCELYN [address] 2020-02-19 2020-02-19 [facility] [id number] Man 00:00:00 00:00:00 JOCELYN [address] 2019-12-25 2019-12-25 Outpatient YALTHO [facility] [id number] Man 00:00:00 00:00:00 GILLES [address] 2019-12-17 2019-12-17 Outpatient JEFFERSON BRAGG [facility] [id number] Man 00:00:00 00:00:[address] 2019-11-19 2019-11-19 Outpatient YEMIJEFFERSON [facility] [id number] Man 00:00:00 00:00:[address] 2019-10-30 2019-10-30 Outpatient EL [facility]SL [facility] [id number] [facility]SL 00:00:00 00:00:00 2019-10-03 2019-10-03 Outpatient JEFFERSON BRAGG [facility] [id number] Man 00:00:00 00:00:[address] 2019-10-03 2019-10-03 Outpatient JEFFERSON BRAGG [facility] [id number] Man 00:00:00 00:00:[address] 2019-10-03 2019-10-03 Outpatient JEFFERSON BRAGG [facility] [id number] Man 00:00:00 00:00:[address] 2019-08-22 2019-08-22 Outpatient SHREBECCA, [facility] [id number] Man 00:00:00 00:00:00 SAMREEN [address] 2019-08-22 2019-08-22 Outpatient YALTHO, [facility] [id number] Man 00:00:00 00:00:00 GILLES [address] 2019-08-16 2019-08-16 Outpatient GISELA, [facility] [id number] Man 00:00:00 00:00:00 JOCELYN [address] 2019-08-16 2019-08-16 Outpatient GISELA, [facility] [id number] Man 00:00:00 00:00:00 JOCELYN [address] 2019-07-19 2019-07-19 Outpatient YALTHO, [facility] [id number] Man 00:00:00 00:00:00 GILLES [address] 2019-05-03 2019-05-03 Outpatient YALTHO, [facility] [id number] Man 00:00:00 00:00:00 GILLES [address] 2019-05-03 2019-05-03 Outpatient YALTHO, [facility] [id number] Man 00:00:00 00:00:00 GILLES [address] 2019-03-09 2019-03-09 Outpatient GISELA, [facility] [id number] [address] [place] [address] 00:00:00 00:00:00 JOCELYN [address] 2019-02-25 2019-02-25 Outpatient GISELA, [facility] [id number] Man 00:00:00 00:00:00 JOCELYN [address] 2019-02-25 2019-02-25 Outpatient GISELA, [facility] [id number] Man 00:00:00 00:00:00 JOCELYN [address] 2019-01-17 2019-01-17 Outpatient STEFANO, [facility] [id number] Man 00:00:00 00:00:00 SAMREEN [address] 2018-12-18 2018-12-18 Outpatient STEFANO [facility] [id number] Man 00:00:00 00:00:00 SAMREEN [address] 2018-12-06 2018-12-06 Outpatient STEFANO [facility] [id number] Man 00:00:00 00:00:00 SAMREEN [address] 2018-12-04 2018-12-04 Outpatient STEFANO, [facility] [id number] Man 00:00:00 00:00:00 SAMREEN [address] 2018-11-30 2018-11-30 Outpatient STEFANO [facility] [id number] Man 00:00:00 00:00:00 SAMREEN [address] 2018-11-28 2018-11-28 Outpatient STEFANO [facility] [id number] Man 00:00:00 00:00:00 SAMREEN [address] 2018-11-26 2018-11-27 Outpatient STEFANO, [facility] [id number] Man 00:00:00 00:00:00 SAMREEN [address] 2018-11-26 2018-11-26 Outpatient STEFANO [facility] [id number] Man 00:00:00 00:00:00 SAMREEN [address] Results Test Description Test Time Test Comments Results Result Comments Source ECG Pre/Post Op 2021-10-01 13:15:02 Test Item Value Reference Range Interpretation Comme nts Ventricular rate (test code = 253) Atrial rate (test code = 255) OK interval (test code = 266) QRSD interval (test code = 260) QT interval (test code = 264) QTC interval (test code = 265) QRS axis 1 (test code = 268) T wave axis (test code = 270) EKG impression (test code = 273) Atrial-paced rhythm with prolonged AV conduction-Minimal voltage criteria for LVH, may be normal variant-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)- [facility] Pre/Post [id number] 13:15:02 Test Item Value Reference Range Interpretation Comments Ventricular rate (test code = 253) Atrial rate (test code = 255) OK interval (test code = 266) QRSD interval (test code = 260) QT interval (test code = 264) QTC interval (test code = 265) QRS axis 1 (test code = 268) T wave axis (test code = 270) EKG impression (test Atrial-paced rhythm code = 273) with prolonged AV conduction-Minimal voltage criteria for LVH, may be normal variant-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)-Electron ically Signed By Chris Courtney MD (2024) on 10/01/2021 8:15:00 AM [facility] [id number] 17:27:00 Test Item Value Reference Range Interpretation Comments POC glucose (test code 225 mg/dL 65-99 H Opera tor Name: = 85571-8) Compa oakes ID: [id number] able: RN Notified Lab Interpretation Abnormal (test code = 18505-4) [facility] [id number] 17:27:00 Test Item Value Reference Range Interpretation Comments POC glucose (test code 225 mg/dL 65-99 H Opera tor Name: = 88114-5) Compa oakes ID: [id number] able: RN Notified Lab Interpretation Abnormal (test code = 80278-7) [facility] [Presence] in Respiratory specimen by SJ with probe [id number] 16:13:23 Test Item Value Reference Range Interpretation Comments SARS-CoV-2 (COVID-19) RNA Not detected [Presence] in Respiratory specimen by SJ with probe detection (test code = 02901-4) Whether patient is employed in a Unknown healthcare setting (test code = 15541-4) Whether the patient has symptoms Unknown related to condition of interest (test code = 28006-0) Whether the patient was Unknown hospitalized for condition of interest (test code = 68514-2) Whether the patient was admitted Unknown to intensive care unit (ICU) for condition of interest (test code = 92372-2) Whether patient resides in a Unknown congregate care setting (test code = 06966-5) status (test code = Unknown 30845-1) Date and time of symptom onset Unknown (test code = 12495-5) [address]2022-07-11 01:10:55 Test Item Value Reference Range Interpretation Comments Ventricular rate (test code = 253) Atrial rate (test code = 255) OK interval (test code = 266) QRSD interval [...] Iglesias MD (2064) on 09/26/2021 8:10:[address]2022-07-11 01:10:55 Test Item Value Reference Range Interpretation Comments Ventricular rate (test code = 253) Atrial rate (test code = 255) OK interval (test code = 266) QRSD interval [...] Iglesias MD (2064) on 09/26/2021 8:10:48 PM [facility], (w Contrast, Strain and 3D if needed)2021-09-22 23:49:22 Test Item Value Reference Range Interpretation Comments Ao Root Diameter (test 3.52 cm code = 1703657241) AoV Area, Vmax (test 2.34 cm2 code = 2035236093) AoV Area, VTI (test 2.60 cm2 code = 4987562901) AoV Mean PG (test code mmHg = 9875274362) AoV Peak PG (test code mmHg = 0670062562) AoV Vmax (test code = 1.58 m/s 4204363219) AoV VTI (test code = 0.27 m 8052027292) IVS,d (test code = 1.24 cm 0.6-1.0 A 4930645545) IVS/LVPW,2D (test code = 1314992978) Left Atrium Dimension 4.50 cm Anterior (test code = 9031410133) LV,d (test code = 5.53 cm 7536277734) LV EF,2D (test code = 61.39 % 6631563509) LV,s (test code = 4.03 cm 0187514706) LVOT area (test code = 3.17 cm2 5907775231) LVOT Diam,S (test code 2.01 cm = 5291674100) LVOT Vmax (test code = 1.02 m/s 9346280038) LVOT VTI (test code = 0.23 m 0953049287) LVPWD,d (test code = 1.26 cm 0.6-1.0 A 7559414714) PV Pk Grad (test code mmHg = 3907634149) PV VMAX (test code = 1.39 m/s 5017105142) RVOT Vmax (test code = 0.78 m/s 1575211028) TR Vpeak (test code = 2.70 m/s 2563499421) MV E A ratio (test code = 3653311994) TR pk grad (test code mmHg = 8099710287) MR Vmax (test code = 3.82 m/s 9540355109) E wave decelartion msec time (test code = 7222483092) MV Peak A Jese (test 0.80 m/s code = 1462748060) MV valve area p 1/2 3.51 cm2 method (test code = 3479455986) MV Peak E Jese (test 0.63 m/s code = 0719097216) MV stenosis pressure 62.63 ms 1/2 time (test code = 5144541035) LVOT stroke volume 0.73 ml (test code = 6295477790) AV LVOT peak gradient mmHg (test code = 2632722187) Ascending aorta (test 3.62 cm code = 1600335407) Ao Root Diameter (test 3.52 cm code = 9372212013) MV mean gradient (test mmHg code = 3089844808) LV SYS VOL (test code 71.15 ml 21-61 A = 0501589524) LV HANEY VOL (test code 149.32 ml 62-150 = 7840816885) LA area s A4C (test 13.11 cm2 code = 4599211282) LV SV Teich 2D (test 78.18 ml code = 0308374799) LV Vol s Teich PSAX 71.15 ml (test code = 7344282102) MR peak grad (test mmHg code = 2678346924) MV Vmax (test code = 0.95 m 3637467373) MV VTI Tips (test code 0.32 m = 0698073838) RVOT pk grad (test mmHg code = 1733855177) AoV Vmn (test code = 0.85 m/s 3958977484) LV FS Teich 2D (test code = 5374440106) MV AE ratio (test code = 4049580037) LV FS Cube 2D (test code = 9443111211) LVOT Vmn (test code = 6850618677) Aov area Vmn (test 2.37 cm2 code = 2373933826) LVOT mean grad (test mmHg code = 5082427117) MAX Pred HR (test code = 1464620962) 85 of MPHR (test code = 3247471321) Calc MPHR (test code = bpm 3108063415) LV SV Cube 2D (test 103.85 ml code = 1692093567) LV vol d cube 2D (test 169.18 ml code = 0479041866) LV vol s cube 2D (test 65.33 ml code = 2221060242) MV Decel slope (test 2.91 m/s2 code = 0105678593) Pred Exer Dur R1 (test code = 3331413187) Pred METS R1 (test code = 7522242012) LA Vol MOD A4C (test 25.42 ml code = 8660005489) E miranda sept (test code = 5898929424) E prime lat (test code = 5038561859) Velocity Ratio (V1/V2) 0.65 m/s (test code = 4689) EF (test code = 52 % 4221272920) E/A ratio (test code = 2389245526) LVOT VTI (CM) (test 23.00 cm code = 2052520248) FRANK (test code = FRANK) Left Ventricle: Left [...] obtained. Lab Interpretation Abnormal (test code = 49701-1) [facility], (w Contrast, Strain and 3D if needed)2021-09-22 23:49:22 Test Item Value Reference Range Interpretation Comments Ao Root Diameter (test 3.52 cm code = 9588367486) AoV Area, Vmax (test 2.34 cm2 code = 5834056138) AoV Area, VTI (test 2.60 cm2 code = 0071495513) AoV Mean PG (test code mmHg = 1694043182) AoV Peak PG (test code mmHg = 3533360993) AoV Vmax (test code = 1.58 m/s 0130683301) AoV VTI (test code = 0.27 m 5488959680) IVS,d (test code = 1.24 cm 0.6-1.0 A 5104563961) IVS/LVPW,2D (test code = 0702286070) Left Atrium Dimension 4.50 cm Anterior (test code = 5773528539) LV,d (test code = 5.53 cm 7898763666) LV EF,2D (test code = 61.39 % 0049207730) LV,s (test code = 4.03 cm 4409113914) LVOT area (test code = 3.17 cm2 2181714667) LVOT Diam,S (test code 2.01 cm = 2196821513) LVOT Vmax (test code = 1.02 m/s 4898534922) LVOT VTI (test code = 0.23 m 6958971066) LVPWD,d (test code = 1.26 cm 0.6-1.0 A 7235123371) PV Pk Grad (test code mmHg = 9886300556) PV VMAX (test code = 1.39 m/s 9347222973) RVOT Vmax (test code = 0.78 m/s 4947019627) TR Vpeak (test code = 2.70 m/s 0650661535) MV E A ratio (test code = 9430350132) TR pk grad (test code mmHg = 0491076594) MR Vmax (test code = 3.82 m/s 3925120936) E wave decelartion msec time (test code = 5789837553) MV Peak A Jese (test 0.80 m/s code = 1977553151) MV valve area p 1/2 3.51 cm2 method (test code = 9437161483) MV Peak E Jese (test 0.63 m/s code = 3393799939) MV stenosis pressure 62.63 ms 1/2 time (test code = 6936925681) LVOT stroke volume 0.73 ml (test code = 6922948671) AV LVOT peak gradient mmHg (test code = 7042948108) Ascending aorta (test 3.62 cm code = 4727055539) Ao Root Diameter (test 3.52 cm code = 8553408613) MV mean gradient (test mmHg code = 6800586967) LV SYS VOL (test code 71.15 ml 21-61 A = 0211701519) LV HANEY VOL (test code 149.32 ml 62-150 = 6862194676) LA area s A4C (test 13.11 cm2 code = 9263718836) LV SV Teich 2D (test 78.18 ml code = 1667309636) LV Vol s Teich PSAX 71.15 ml (test code = 3692572758) MR peak grad (test mmHg code = 8464905560) MV Vmax (test code = 0.95 m 8330113412) MV VTI Tips (test code 0.32 m = 3048819181) RVOT pk grad (test mmHg code = 2154591166) AoV Vmn (test code = 0.85 m/s 5496387123) LV FS Teich 2D (test code = 9673814065) MV AE ratio (test code = 7443332265) LV FS Cube 2D (test code = 3158033019) LVOT Vmn (test code = 5332266091) Aov area Vmn (test 2.37 cm2 code = 7888088669) LVOT mean grad (test mmHg code = 8031138372) MAX Pred HR (test code = 7498606154) 85 of MPHR (test code = 1647046049) Calc MPHR (test code = bpm 1378572559) LV SV Cube 2D (test 103.85 ml code = 1835233048) LV vol d cube 2D (test 169.18 ml code = 8869847319) LV vol s cube 2D (test 65.33 ml code = 9492733951) MV Decel slope (test 2.91 m/s2 code = 3254207691) Pred Exer Dur R1 (test code = 7373692029) Pred METS R1 (test code = 0395966671) LA Vol MOD A4C (test 25.42 ml code = 8024220913) E miranda sept (test code = 1325293046) E prime lat (test code = 2079806080) Velocity Ratio (V1/V2) 0.65 m/s (test code = 4689) EF (test code = 52 % 2999384136) E/A ratio (test code = 1302301474) LVOT VTI (CM) (test 23.00 cm code = 9033226869) FRANK (test code = FRANK) Left Ventricle: Left [...] obtained. Lab Interpretation Abnormal (test code = 95248-6) [facility] [Presence] in Respiratory specimen by SJ with probe [id number] 18:25:31 Test Item Value Reference Range Interpretation Comments SARS-CoV-2 (COVID-19) RNA Not detected [Presence] in Respiratory specimen by SJ with probe detection (test code = 00289-6) Whether patient is employed in a Unknown healthcare setting (test code = 03710-2) Whether the patient has symptoms Unknown related to condition of interest (test code = 96106-7) Whether the patient was Unknown hospitalized for condition of interest (test code = 83037-0) Whether the patient was admitted Unknown to intensive care unit (ICU) for condition of interest (test code = 09160-4) Whether patient resides in a Unknown congregate care setting (test code = 31993-0) status (test code = Unknown 71209-2) Date and time of symptom onset Unknown (test code = 86627-9) [facility] ED Preliminary Interpretation - Not an [id number] 17:16:17 Test Item Value Reference Range Interpretation Comments FRANK (test code = FRANK) Ramon Yi MD 09/21/2021 2:20 [facility] ED Preliminary Interpretation - Not an OrderPerformed by: Ramon Yi MDAuthorized by: Ramon Yi MD ECG reviewed by ED Physician in the absence of a regional account executive: yes Interpretation: Interpretation: abnormal Quality: Tracing quality: Limited by artifactRate: ECG rate: 70 ECG rate assessment: normal Rhythm: Rhythm: sinus rhythm Ectopy: Ectopy: none QRS: QRS axis: Normal QRS intervals: NormalConduction: Conduction: normal ST segments: ST segments: NormalT waves: T waves: flattening and inverted Flattening: V1, V2, V3 and V4 Inverted: I and aVL Lab Interpretation Abnormal (test code = 36357-8) [facility] ED Preliminary Interpretation - Not an [id number] 17:16:17 Test Item Value Reference Range Interpretation Comments FRANK (test code = FRANK) Ramon Yi MD 09/21/2021 2:20 [facility] ED Preliminary Interpretation - Not an OrderPerformed by: Ramon Yi MDAuthorized by: Ramon Yi MD ECG reviewed by ED Physician in the absence of a regional account executive: yes Interpretation: Interpretation: abnormal Quality: Tracing quality: Limited by artifactRate: ECG rate: 70 ECG rate assessment: normal Rhythm: Rhythm: sinus rhythm Ectopy: Ectopy: none QRS: QRS axis: Normal QRS intervals: NormalConduction: Conduction: normal ST segments: ST segments: NormalT waves: T waves: flattening and inverted Flattening: V1, V2, V3 and V4 Inverted: I and aVL Lab Interpretation Abnormal (test code = 52987-5) [facility] SurinderMIHAELAFrantz [id number] 16:33:01 Test Item Value Reference Range Interpretation Comments TROPONIN I (test <0.012 See_Comment [Automated code = 5508639571) message] The system which generated this result [...] ? Lab Interpretation Normal (test code = 05060-4) [facility] [id number] 16:30:00 Test Item Value Reference Range Interpretation Comments NT-proBNP (test code 185 pg/mL See_Comment H [Autom ated = 4010859579) message] The system which generated this result transmitted reference range : <=125. The reference range was not used to interpret this result as normal/abnormal . FRANK (test code = FRANK) Biotin has been reported to cause a negative bias, interpret results relative to patient's use of biotin. Lab Interpretation Abnormal (test code = 03226-4) [facility] (21688)(TOTAL CHOLESTEROL, TRIGLYCERIDES, HDL)2020-06-06 16:22:02 Test Item Value Reference Range Interpretation Comments CHOL (test code = 214 mg/dL 120-200 H 1519491930) HDL (test code = 60 mg/dL >40 9798343030) HDLC RATIO (test code = See_Comment [Au tomated message] 5927151207) The system [employer] generated this result transmit tammy reference range : <=5.0. The refe rence range was not u sed to interpret th is result as normal/abnormal . TRIG (test code = 316 mg/dL 30-170 H 4039215167) LDL CHOL (test code = 91 mg/dL See_Comment [Auto mated message] 99762-0) The system [employer] generated this result transmit tammy reference range : <=160. The refe rence range was not u sed to interpret th is result as normal/abnormal . VLDL (test code = 63 mg/dL 5-60 H 4243369052) Lab Interpretation (test Abnormal code = 34717-0) [facility] COVID-19 [id number] 11:58:49 Test Item Value Reference Range Interpretation Comments SARS-CoV-2 NAAT (test Positive Not Detected A code = 05515-5) FRANK (test code = FRANK) Ceptracxid Xpert ?Xpress SARS-CoV-2 Assay is a rapid, real-time RT-PCR test intended for the qualitative detection of nucleic acid from the SARS-CoV-2 in nasopharyngeal (FEED HANDLER) specimens. It is used under Emergency Use [...] indicated. Lab Interpretation Abnormal (test code = 29680-5) [facility]YCOSYLATED HEMOGLOBIN (A1C)2020-06-06 11:56:53 Test Item Value Reference Range Interpretation Comments HGB A1C (test code = 7.8 % 4.0-6.0 H 4548-4) FRANK (test code = FRANK) %A1C (NGSP) Interpretation (ADA)4.8-5.6 ? ? Normal or (Non-Diabetic Range)5.7-6.4 ? ? Increased Risk (Pre-Diabetic)>6.5 ?Diabetes Indicated Lab Interpretation Abnormal (test code = 85105-6) [facility] (ID NOW RAPID TESTING)2020-06-06 04:57:34 Test Item Value Reference Range Interpretation Comments SARS-CoV-2 Rapid ID NOW Positive Not Detected A (test code = 02242-6) FRANK (test code = FRANK) ID NOW COVID-19 Assay is an isothermal nucleic acid amplification test intended for the qualitative detection of nucleic acid from SARS-CoV-2 viral RNA in nasopharyngeal (FEED HANDLER) specimens. It is used under Emergency Use [...] indicated. Lab Interpretation Abnormal (test code = 38098-0) [facility] [id number] 03:36:48 Test Item Value Reference Range Interpretation Comments TROPONIN I (test <0.012 See_Comment [Automated code = 1382078913) message] The system which generated this result [...] ? Lab Interpretation Normal (test code = 35668-9) [facility]. METABOLIC PANEL (74943)2020-06-06 03:23:27 Test Item Value Reference Range Interpretation Comments NA (test code = 135 mmol/L 135-145 9594980045) K (test code = 4.5 mmol/L 3.5-5.0 4924377828) CL (test code = 99 mmol/L 98-108 0527968420) CO2 TOTAL (test code = 27 mmol/L 23-31 6820837701) AGAP (test code = 2-16 3595110575) BUN (test code = 25 mg/dL 7-23 H 6763157381) GLUCOSE (test code = 203 mg/dL 70-110 H 4825236074) CREATININE (test code = 1.31 mg/dL 0.60-1.25 H 2190771747) TOTAL BILI (test code = 0.6 mg/dL 0.1-1.6 3308467094) CALCIUM (test code = 9.0 mg/dL 8.6-10.6 2773830688) T PROTEIN (test code = 6.9 g/dL 6.3-8.2 7122756421) ALBUMIN (test code = 4.3 g/dL 3.5-5.0 0407600113) ALK PHOS (test code = 54 U/L 34-122 3252862927) ALTv (test code = 12 U/L 5-50 1742-6) AST(SGOT) (test code = 25 U/L 13-40 1159093354) eGFR Calculation mL/min/1.73m2 (Non-) (test code = 1019455942) eGFR Calculation mL/min/1.73m2 () (test code = 4208604109) FRANK (test code = FRANK) Association of [...] tests). Lab Interpretation Abnormal (test code = 27240-1) [facility]2021-[facility]-20 03:19:40 Test Item Value Reference Range Interpretation Comments APPEARANCE (test code = Hazy Clear A 0877025137) COLOR (test code = Anais Yellow A 1930051233) PH (test code = 4.8-8.0 1488839700) SP GRAVITY (test code = 1.003-1.030 3700632918) GLU U QUAL (test code = 500 mg/dL Normal A 6046286993) BLOOD (test code = Negative Negative 7265838047) KETONES (test code = 5 mg/dL Negative A 8358699756) PROTEIN (test code = 30 mg/dL Negative A 2887-8) UROBILIN (test code = 2.0 mg/dL Normal A 0521625898) BILIRUBIN (test code = Negative Negative 0840644300) NITRITE (test code = Negative Negative 8100937091) LEUK RAIN (test code = Negative Negative 3169254093) RBC/HPF (test code = See_Comment [Autom ated message] 7470986674) The system [employer] generated this result transmit tammy reference range : 0 - 3 HPF. The refe rence range was not u sed to interpret th is result as normal/abnormal . WBC/HPF (test code = See_Comment [Autom ated message] 7243655180) The system [employer] generated this result transmit tammy reference range : 0 - 5 HPF. The refe rence range was not u sed to interpret th is result as normal/abnormal . BACTERIA (test code = Few Negative A 4072847865) MUCOUS (test code = Slight Negative LPF A 5017297275) SQ EPITH (test code = HPF 6851285268) HYAL CAST (test code = See_Comment H [Aut omated message] 5713990102) The system [employer] generated this result transmit tammy reference range : <=2 LPF. The refere nce range was not u sed to interpret th is result as normal/abnormal . Lab Interpretation (test Abnormal code = 96479-8) [facility]anoCB WITH [id number] 03:13:42 Test Item Value Reference Range Interpretation [...] RDW-SD (test code = 46.5 fL 38.5-51.6 03084-3) RDW-CV (test code = 14.5 % 12.1-15.4 788-0) PLT (test code = See_Comment [Automated 777-3) message] The sy stem which generated this result transmitted reference range : 150 - 328 10*3/ ?L. The reference r denise was not used to interpret this result as normal/abnormal . MPV (test code = 9.6 fL 9.8-13.0 L 19882-3) NRBC/100 WBC (test See_Comment [Automat ed code = 3144588314) message] The system which generated this result transmitted reference range : 0.0 - 10.0 /100 WBCs. The refer ence range was not u sed to interpret th is result as normal/abnormal . NRBC x10^3 (test code <0.01 See_Comment [Auto mated = 1504680284) message] The s ystem which generated this result transmitted reference range : 10*3/?L. The reference range was not used to interpret this result as normal/abnormal . GRAN MAT (NEUT) % 54.8 % (test code = 770-8) IMM GRAN % (test code 1.30 % = 9998745572) LYMPH % (test code = 27.9 % 736-9) MONO % (test code = 7.8 % 5905-5) EOS % (test code = 7.6 % 713-8) BASO % (test code = 0.6 % 706-2) GRAN MAT x10^3(ANC) 5.66 10*3/uL 1.99-6.95 (test code = 4785392467) IMM GRAN x10^3 (test 0.13 10*3/uL 0.00-0.06 H code = 9636835122) LYMPH x10^3 (test code 2.88 10*3/uL 1.09-3.23 = 731-0) MONO x10^3 (test code 0.81 10*3/uL 0.36-1.02 = 742-7) EOS x10^3 (test code = 0.78 10*3/uL 0.06-0.53 H 711-2) BASO x10^3 (test code 0.06 10*3/uL 0.01-0.09 = 704-7) Lab Interpretation Abnormal (test code = 29001-2) [facility]anoXR [facility]ST 1 [id number] 03:11:14 1. ?No acute cardiopulmonary abnormality.EXAM: XR CHEST 1 VW HISTORY: syncope COMPARISON: None available FINDINGS: Lines/Tubes: Right Port-A-Cath extends to distal SVC. Lungs: The lungs are poor expanded with perihilar vascular crowding.Retrocardiac opacity is likely atelectasis. Heart/Mediastinum: The cardiomediastinal silhouette is at upper limit ofnormal. Bones: Changes from medial sternotomy. An ACDF partial visualized. Nymb, Radiant Results Inft User - 06/05/2020 10:12 PM CDTEXAM: XR CHEST 1 VWHISTORY: syncope COMPARISON: None availableFINDINGS:Lines/Tubes: Right Port-A-Cath extends to distalSVC.Lungs: The lungs are poor expanded with perihilar vascular crowding.Retrocardiac opacity is likely atelectasis.Heart/Mediastinum: The cardiomediastinal silhouette is at upper limit ofnormal.Bones: Changes from medial sternotomy. An ACDF partial visualized.IMPRESSION1. No acute cardiopulmonary abnormality.[facility] [id number] 09:06:00 Test Item Value Reference Range Interpretation Comments CULTURE (BEAKER) (test code = 1095) No growth POCT-GLUCOSE [id number] 12:32:00 Test Item Value Reference Range Interpretation Comments POC-GLUCOSE METER 188 mg/dL 70-110 H : TESTED A T [address] (BEAKER) (test code [address], = 1538) [place] [id number]: Real Estate Executive Assistant/Techni eddie ID = [id number] for Bhavin Carvajal POCT-GLUCOSE [id number] 08:42:00 Test Item Value Reference Range Interpretation Comments POC-GLUCOSE METER 135 mg/dL 70-110 H : TESTED A T [address] (BEAKER) (test code [address], = 1538) [place] [id number]: Real Estate Executive Assistant/Techni eddie ID = [id number] for Bhavin Carvjaal COMPREHENSIVE METABOLIC [id number] 05:20:00 Test Item Value Reference Range Interpretation [...] S NOT APPLICABLE FOR DIALYSIS PATIEN TS. Real Estate Executive Assistant ID - [id number] W/PLT COUNT & AUTO [id number] 04:56:00 Test Item Value Reference Range Interpretation [...] PERCENT (BEAKER) (test code = 2801) POCT-GLUCOSE [id number] 20:27:00 Test Item Value Reference Range Interpretation Comments POC-GLUCOSE METER 258 mg/dL 70-110 H : TESTED A T [address] (BEAKER) (test code [facility], = 1538) [place] [address]: Real Estate Executive Assistant/Techni eddie ID = [id number] for Will Bettina martinez POCT-GLUCOSE [id number] 17:51:00 Test Item Value Reference Range Interpretation Comments POC-GLUCOSE METER 262 mg/dL 70-110 H : TESTED A T [address] (BEAKER) (test code [facility], = 1538) [place] [address]: Real Estate Executive Assistant/Techni eddie ID = [id number] for Obik roberta, Ifeyinwa POCT-GLUCOSE [id number] 12:48:00 Test Item Value Reference Range Interpretation Comments POC-GLUCOSE METER 242 mg/dL 70-110 H : TESTED A T [address] (BEAKER) (test code [facility], = 1538) [place] [address]: Real Estate Executive Assistant/Techni eddie ID = [id number] for Obik roberta, Ifeyinwa PT/[id number] 10:22:00 Test Item Value Reference Range Interpretation [...] (Auto Output)Final Information (Auto Output)Final Information (Auto Output)[id number] 10:19:00 Test Item Value Reference Range Interpretation Comments MAGNESIUM (BEAKER) (test code = 2.1 mg/dL 1.5-3.0 627) Real Estate Executive Assistant ID - [id number] METABOLIC [id number] 10:18:00 Test Item Value Reference Range Interpretation [...] S NOT APPLICABLE FOR DIALYSIS PATIEN TS. Real Estate Executive Assistant ID - [id number] W/PLT COUNT & AUTO [id number] 10:14:00 Test Item Value Reference Range Interpretation [...] PERCENT (BEAKER) (test code = 2801) POCT-GLUCOSE [id number] 09:14:00 Test Item Value Reference Range Interpretation Comments POC-GLUCOSE METER 198 mg/dL 70-110 H : TESTED A T [address] (BEAKER) (test code [address], = 1538) [facility] [address]: Real Estate Executive Assistant/Techni eddie ID = [id number] for Bhavin Carvajal POCT-GLUCOSE [id number] 21:33:00 Test Item Value Reference Range Interpretation Comments POC-GLUCOSE METER 218 mg/dL 70-110 H : TESTED A T [address] (BEAKER) (test code [address] [facility], = 1538) [place] [id number]: Real Estate Executive Assistant/Techni eddie ID = [id number] for Roney Chapa POCT-GLUCOSE [id number] 16:23:00 Test Item Value Reference Range Interpretation Comments POC-GLUCOSE METER 225 mg/dL 70-110 H : Notified RN/MD: TESTED (BEAKER) (test code AT [address] = 1538) [address], [facility] [address]: Real Estate Executive Assistant/Techni eddie ID = [id number] for Felicitas Tolliver POCT-GLUCOSE [id number] 14:34:00 Test Item Value Reference Range Interpretation Comments POC-GLUCOSE METER 167 mg/dL 70-110 H : TESTED A T [address] (BEAKER) (test code [address] [facility], = 1538) [place] [id number]: Real Estate Executive Assistant/Techni eddie ID = [id number] for [place], [place], FLUORO, NON-SPECIFIC, UP TO 1 [id number] 13:30:00Reason for exam:->surgeryFluoroscopic unit utilized for a procedure performed in the OR. No interpretation was requested. Refer to the operative report for findings. Refer to PACS for patient radiation dose information.URINALYSIS WITHOUT [id number] 11:32:00 Test Item Value Reference Range Interpretation [...] 463) SOURCE(BEAKER) (test code = 2795) POCT-GLUCOSE [id number] 07:56:00 Test Item Value Reference Range Interpretation Comments POC-GLUCOSE METER 179 mg/dL 70-110 H : TESTED A T [address] (BEAKER) (test code [address], = 1538) [facility] [place] [address]: Real Estate Executive Assistant/Techni eddie ID = [id number] for Yogesh Padilla SARS-COV2/RT-PCR ([facility])2019-10-30 13:51:00 Test Item Value Reference Range Interpretation Comments SARS-COV2/RT-PCR (test code = See reflex [id number]) SARS-COV-2 PERFORMING LAB (test code CPL = 1475888) BASIC METABOLIC [id number] 09:33:00 Test Item Value Reference Range Interpretation [...] 1092) DATA TO CALCULA TE ESTIMATED GFR. Real Estate Executive Assistant ID - [id number] W/PLT COUNT & AUTO [id number] 09:03:00 Test Item Value Reference Range Interpretation [...] % 0-0 PERCENT (BEAKER) (test code = 2801)"
[2022-02-02] MEDS ORDERED: FENTANYL CITR 100 MCG/2 ML ONE (12:49)
[2022-02-02] MEDS ORDERED: ONDANSETRON 4 MG/2 ML VIAL ONE (12:50)
[2022-02-02] MEDS ORDERED: dexAMETHasone 10 MG/ML VIAL ONE (12:50)
--- NOTE | 2022-02-02 12:51 | ER ---
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 He states sliding down his recliner. he did not lose consciousness and he did not hit head. his currently taking aspirin. he has history of prostate cancer and has a pacemaker. we couldn't get an IV we gave him 50 mcg IM of fentanyl at 1200 for the back pain. He wears a neck brace due to fracture of t1 and t2". Coronavirus screen: Client denies travel out of the [place] in the last 14 days. Ebola Screen: Patient negative for fever greater than or equal to 101.5 degrees Fahrenheit, and additional compatible Ebola Virus Disease symptoms. Initial Sepsis Screen: Does the patient meet any 2 criteria? No. Patient's initial sepsis screen is negative. Does the patient have a suspected source of infection? No. Patient's initial sepsis screen is negative. Risk Assessment: Do you want to hurt yourself or someone else? Patient reports no desire to harm self or others. Onset of symptoms was February 02, 2022. 12:32 Method Of Arrival: EMS: [facility] em6 Historical: - Allergies: 12:39 No Known Allergies; em6 - Home Meds: 13:27 Hydrocodone-Acetaminophen Oral [Active]; aspirin 81 mg Oral cap [Active]; atorvastatin em6 oral [Active]; 13:30 clopidogrel oral [Active]; Tramadol Oral [Active]; em6 13:31 eszopiclone oral [Active]; Glimepiride Oral [Active]; Isosorbide Mononitrate Oral em6 [Active]; - PMHx: 13:27 Prostate cancer; Spinal Tumor; Stroke; em6 - PSHx: 13:27 Tripple bypass; Pacemaker; em6 - Immunization history:: Adult Immunizations unknown. - Social history:: Smoking status: unknown. - Family history:: not pertinent. Screenin:30 Abuse screen: Denies threats or abuse. Nutritional screening: No deficits noted. em6 Tuberculosis screening: No symptoms or risk factors identified. 14:40 Fall Risk Fall in past 12 months (25 points). Secondary diagnosis (15 points) impaired em6 mobility, IV access (20 points). Ambulatory Aid- None/Bed Rest/Nurse Assist (0 pts). Gait- Impaired (20 pts.). Mental Status- Oriented to own ability (0 pts). Total Delaney Fall Scale indicates High Risk Score (45 or more points). Fall prevention measures have been instituted. Side Rails Up X 2 Placed Close to Nursing Station Frequent Obs/Assessments Occuring Family Present and informed to notify staff if the need to leave the bedside As available patient and family educated on Fall Prevention Program and Strategies. Assessment: 12:28 General: Appears uncomfortable, Behavior is cooperative. Pain: Complains of pain in em6 right leg and left leg Pain does not radiate. Pain currently is 10 out of 10 on a pain scale. Quality of pain is described as numb, Pain began 1 day ago. Is continuous. Neuro: Level of Consciousness is awake, alert, obeys commands, Oriented to person, place, time, situation, Reports numbness in right leg and left leg since 02/02/22 at 11. Cardiovascular: Heart tones present Patient's skin is warm and dry. Respiratory: Airway is patent Respiratory effort is even, unlabored, Breath sounds are clear bilaterally. GI: Abdomen is distended, Bowel sounds present X 4 quads. Abdomen is tender to palpation X 4 quads. : Reports no feeling below the waist. EENT: No signs and/or symptoms were reported regarding the EENT system. Derm: No signs and/or symptoms reported regarding the dermatologic system. Musculoskeletal: Range of motion: limited in right leg and left leg. 13:27 Reassessment: patient in CT. em6 13:30 Reassessment: No changes from previously documented assessment. Patient and/or family em6 updated on plan of care and expected duration. Pain level reassessed. Patient is alert, oriented x 3, equal unlabored respirations, skin warm/dry/pink. 14:30 Reassessment: No changes from previously documented assessment. Patient and/or family em6 updated on plan of care and expected duration. Pain level reassessed. Patient is alert, oriented x 3, equal unlabored respirations, skin warm/dry/pink. 15:30 Reassessment: No changes from previously documented assessment. Patient and/or family em6 updated on plan of care and expected duration. Pain level reassessed. Patient is alert, oriented x 3, equal unlabored respirations, skin warm/dry/pink. 15:45 Reassessment: gave EMS report to sabi and nurse to nurse report to damien from em6 [facility]. Vital Signs: 12:32 BP 169 / 93; Pulse 74; Resp 20; Temp 97.6; Pulse Ox 100% ; Weight 95.25 kg; Height 5 em6 ft. 10 in. (177.80 cm); Pain 10/10; 13:30 BP 154 / 89; Pulse 66; Resp 18; Pulse Ox 100% on R/A; em6 14:30 BP 187 / 85; Pulse 67; Resp 18; Pulse Ox 96% on R/A; em6 15:00 BP 159 / 80; Pulse 69; Resp 18; Pulse Ox 97% on R/A; em6 12:32 Body Mass Index 30.13 (95.25 kg, 177.80 cm) em6 ED Course: 12:21 Patient arrived in ED. [place] 12:22 Blas Jimenez MD is Attending Physician. [place] 12:27 Sonia Yi, RN is Primary Nurse. em6 12:31 Triage completed. em6 12:31 Arm band placed on. em6 12:40 Bed in low position. Call light in reach. Side rails up X2. revenue director on. Pulse em6 ox on. NIBP on. Warm blanket given. 12:46 transfer intiated to [facility] by Dr Jimenez. bd 13:13 XRAY Chest (1 view) In Process Unspecified. EDMS 13:36 CT Traumagram (Head C Spine CAP wo con) In Process Unspecified. EDMS 14:30 Accessed peripheral vein via ultrasound, utilizing dynamic ultrasound technique using em6 accessed w/ # 20 Bonilla needle, 20G Nexia IV catheter ,sterile technique, per hospital protocol. Clean \\T\\ dry. Dressing intact. Good blood return. Flushes easily. perform by Ivan Heaton RN. 14:43 Coud inserted, using sterile technique, 14 Fr. Returned clear yellow urine. To gravity em6 drainage. Urine specimen collected. 15:54 No provider procedures requiring assistance completed. Patient transferred, IV remains em6 in place. intact, bleeding controlled, No redness/swelling at site. Pressure dressing applied. Administered Medications: 14:14 Drug: Decadron - Dexamethasone 10 mg Route: IVP; Site: right antecubital; em6 14:50 Follow up: Response: No adverse reaction em6 14:14 Drug: fentaNYL (PF) 25 mcg Route: IVP; Site: right antecubital; em6 14:50 Follow up: Response: No adverse reaction; RASS: Alert and Calm (0) em6 14:14 Drug: Zofran (Ondansetron) 4 mg Route: IVP; Site: right antecubital; em6 14:50 Follow up: Response: No adverse reaction em6 Medication: 15:49 VIS not applicable for this client. em6 Intake: 15:43 IV: 50ml; Total: 50ml. em6 Output: 15:43 Urine: 1500ml (Herrera); Total: 1500ml. em6 Outcome: 12:51 ER care complete, transfer ordered by . [place] 15:54 Transferred by ground EMS to [facility], Transfer form completed. em6 15:54 Condition: stable 15:54 Instructed on the need for transfer, Demonstrated understanding of instructions. 15:55 Patient left the ED. em6 Signatures: Dispatcher [employer] EDMS Sonia Powell Corey, MD MD cha Martinez, Erika, RN RN em6 Corrections: (The following items were deleted from the chart) 13:33 12:28 GI: Abdomen is non-distended, Abd is soft and non tender X 4 quads. em6 em6 15:43 12:28 GI: Abdomen is non-distended, Abd is soft and non tender X 4 quads. em6 em6 15:55 15:54 Reassessment: gave EMS report to [facility] em6 em6
--- NOTE | 2022-02-02 12:51 | EDPHYS ---
Physician Documentation [facility] Name: Blaine Silva Jr Age: 71 yrs Sex: Male : 1950 Arrival Date: 02/02/2022 Time: 12:21 Bed 30 Private MD: ED Physician Bals Jimenez HPI: 02/02 12:39 This 71 yrs old Male presents to ER via EMS with complaints of Numbness. sl[place] 12:39 The patient's problem is reported as paresthesias, weakness, in the right lower [place] extremity, in the left lower extremity. Onset: The symptoms/episode began/occurred this morning. Duration: The episode is continuous. Context: the episode(s) was witnessed, by family, . The symptoms are alleviated by nothing. The symptoms are aggravated by changing position. Associated signs and symptoms: Pertinent positives: back pain, tingling, weakness. Severity of symptoms: At their worst the symptoms were moderate in the emergency department the symptoms are unchanged. Patient's baseline: Neuro:. The patient has experienced a previous episode. Historical: - Allergies: 12:39 No Known Allergies; em6 - Home Meds: 13:27 Hydrocodone-Acetaminophen Oral [Active]; aspirin 81 mg Oral cap [Active]; atorvastatin em6 oral [Active]; 13:30 clopidogrel oral [Active]; Tramadol Oral [Active]; em6 13:31 eszopiclone oral [Active]; Glimepiride Oral [Active]; Isosorbide Mononitrate Oral em6 [Active]; - PMHx: 13:27 Prostate cancer; Spinal Tumor; Stroke; em6 - PSHx: 13:27 Tripple bypass; Pacemaker; em6 - Immunization history:: Adult Immunizations unknown. - Social history:: Smoking status: unknown. - Family history:: not pertinent. ROS: 12:39 Constitutional: Negative for fever, chills, and weight loss, Eyes: Negative for injury, [place] pain, redness, and discharge, ENT: Negative for injury, pain, and discharge, Neck: Negative for injury, pain, and swelling, Cardiovascular: Negative for chest pain, palpitations, and edema, Respiratory: Negative for shortness of breath, cough, wheezing, and pleuritic chest pain, Abdomen/GI: Negative for abdominal pain, nausea, vomiting, diarrhea, and constipation, : Negative for injury, bleeding, discharge, and swelling, MS/Extremity: Negative for injury and deformity, Skin: Negative for injury, rash, and discoloration, Neuro: Negative for headache, weakness, numbness, tingling, and seizure, Psych: Negative for depression, anxiety, suicide ideation, homicidal ideation, and hallucinations, Allergy/Immunology: Negative for hives, rash, and allergies, Endocrine: Negative for neck swelling, polydipsia, polyuria, polyphagia, and marked weight changes, Hematologic/Lymphatic: Negative for swollen nodes, abnormal bleeding, and unusual bruising. 12:39 Back: Positive for decreased range of motion, pain at rest, pain with movement, of the lumbar area, left low back and right low back. Exam: 12:39 Constitutional: This is a well developed, well nourished patient who is awake, alert, [place] and in no acute distress. Head/Face: Normocephalic, atraumatic. Eyes: Pupils equal round and reactive to light, extra-ocular motions intact. Lids and lashes normal. Conjunctiva and sclera are non-icteric and not injected. Cornea within normal limits. Periorbital areas with no swelling, redness, or edema. ENT: Nares patent. No nasal discharge, no septal abnormalities noted. Tympanic membranes are normal and external auditory canals are clear. Oropharynx with no redness, swelling, or masses, exudates, or evidence of obstruction, uvula midline. Mucous membranes moist. Neck: Trachea midline, no thyromegaly or masses palpated, and no cervical lymphadenopathy. Supple, full range of motion without nuchal rigidity, or vertebral point tenderness. No Meningismus. Chest/axilla: Normal chest wall appearance and motion. Nontender with no deformity. No lesions are appreciated. Cardiovascular: Regular rate and rhythm with a normal S1 and S2. No gallops, murmurs, or rubs. Normal PMI, no JVD. No pulse deficits. Respiratory: Lungs have equal breath sounds bilaterally, clear to auscultation and percussion. No rales, rhonchi or wheezes noted. No increased work of breathing, no retractions or nasal flaring. Abdomen/GI: Soft, non-tender, with normal bowel sounds. No distension or tympany. No guarding or rebound. No evidence of tenderness throughout. Male : Normal genitalia with no discharge or lesions. Skin: Warm, dry with normal turgor. Normal color with no rashes, no lesions, and no evidence of cellulitis. Psych: Awake, alert, with orientation to person, place and time. Behavior, mood, and affect are within normal limits. 12:39 Back: pain, that is moderate, ROM is decreased, normal spinal alignment noted, CVA tenderness, is absent, vertebral tenderness, is appreciated at T10, T11, T12, L1, L2, L3, L4 and L5, muscle spasm, is appreciated in the left low back, left mid back, right mid back and right low back. 12:39 Neuro: Orientation: is normal, appropriate for stated age, no acute changes, Mentation: is normal, appropriate for stated age, no acute changes, Memory: is normal, appropriate for stated age, no acute changes, Cranial nerves: grossly normal, is grossly normal based on the patient's age, no acute changes, Cerebellar function: is grossly normal, is grossly normal based on the patient's age, no acute changes, Motor: Strength is 1/5 in the right leg and left leg, Sensation: numbness, that is moderate, of the right leg and left leg, Gait: not tested. Deep tendon reflexes are 0 (absent) in the right patellar, right Achilles, left patellar and left Achilles, seizure activity, is not displayed by the patient. 12:44 Radiologist reports: see report [facility] 13:01 ECG was reviewed by the Attending Physician. [facility] Vital Signs: 12:32 BP 169 / 93; Pulse 74; Resp 20; Temp 97.6; Pulse Ox 100% ; Weight 95.25 kg; Height 5 em6 ft. 10 in. (177.80 cm); Pain 10/10; 13:30 BP 154 / 89; Pulse 66; Resp 18; Pulse Ox 100% on R/A; em6 14:30 BP 187 / 85; Pulse 67; Resp 18; Pulse Ox 96% on R/A; em6 15:00 BP 159 / 80; Pulse 69; Resp 18; Pulse Ox 97% on R/A; em6 12:32 Body Mass Index 30.13 (95.25 kg, 177.80 cm) em6 MDM: 12:22 Patient medically screened. [facility] 12:44 Differential diagnosis: paralysis, metabolic disorder, drug effects. Data reviewed: [facility] vital signs, nurses notes, EMS record, lab test result(s), EKG, radiologic studies, CT scan, plain films. Data interpreted: satellite project site monitor: rate is 74 beats/min, rhythm is regular, Pulse oximetry: on room air is 100 %. Test interpretation: by ED physician or midlevel provider: ECG, plain radiologic studies. Counseling: I had a detailed discussion with the patient and/or guardian regarding: the historical points, exam findings, and any diagnostic results supporting the discharge/admit diagnosis, lab results, radiology results, the need to transfer to another facility, for higher level of care, [facility] does not immediately have the required specialist. 02/02 12:39 Order name: Basic Metabolic Panel; Complete Time: 15:28 [facility] 02/02 12:39 Order name: CBC with Diff; Complete Time: 14:34 [facility] 02/02 12:39 Order name: LFT's; Complete Time: 15:28 [facility] 02/02 12:39 Order name: Magnesium; Complete Time: 15:28 [facility] 02/02 12:39 Order name: NT PRO-BNP; Complete Time: 15:28 [facility] 02/02 12:39 Order name: PT-INR; Complete Time: 14:34 [facility] 02/02 12:39 Order name: Troponin HS; Complete Time: 15:28 [facility] 02/02 12:39 Order name: XRAY Chest (1 view); Complete Time: 14:34 [facility] 02/02 12:39 Order name: CT Traumagram (Head C Spine CAP wo con); Complete Time: 14:34 [facility] 02/02 12:39 Order name: Urine Culture [facility] 02/02 15:07 Order name: Urine Dipstick-Ancillary; Complete Time: 15:28 EDIN 02/02 12:39 Order name: EKG; Complete Time: 12:40 [facility] 02/02 12:39 Order name: Cardiac monitoring; Complete Time: 14:44 [facility] 02/02 12:39 Order name: EKG - Nurse/Tech; Complete Time: 13:01 [facility] 02/02 12:39 Order name: IV Saline Lock; Complete Time: 14:44 [facility] 02/02 12:39 Order name: Labs collected and sent; Complete Time: 14:44 [facility] 02/02 12:39 Order name: O2 Per Protocol; Complete Time: 13:01 [facility] 02/02 12:39 Order name: O2 Sat Monitoring; Complete Time: 13:01 [facility] 02/02 12:39 Order name: Urine Dipstick-Ancillary (obtain specimen); Complete Time: 15:07 [facility] 02/02 12:39 Order name: Herrera; Complete Time: 14:43 [facility] EC:01 Rate is 72 beats/min. Rhythm is regular. QRS [place] is Normal. DC interval is normal. QT [place] interval is normal. No Q waves. T waves are Normal. No ST changes noted. Clinical impression: Abnormal EKG without significant change and No evidence of ischemia. Interpreted by me. Reviewed by me. Administered Medications: 14:14 Drug: Decadron - Dexamethasone 10 mg Route: IVP; Site: right antecubital; em6 14:50 Follow up: Response: No adverse reaction em6 14:14 Drug: fentaNYL (PF) 25 mcg Route: IVP; Site: right antecubital; em6 14:50 Follow up: Response: No adverse reaction; RASS: Alert and Calm (0) em6 14:14 Drug: Zofran (Ondansetron) 4 mg Route: IVP; Site: right antecubital; em6 14:50 Follow up: Response: No adverse reaction em6 Disposition Summary: 02/02/22 12:51 Transfer Ordered Transfer Location: [facility] Reason: Higher level of care [place] Condition: Serious [place] Problem: new [place] Symptoms: are unchanged [place] [facility] 15[facility]55[facility] em6 Diagnosis - Low back pain [place] - Other cord compression [place] - Malignant neoplasm of spinal cord - and associated fractures [place] - Malignant neoplasm of prostate - metastatic [place] Forms: - Medication Reconciliation Form sl[place]ane - SBAR form [place] Signatures: Dispatcher [employer] EDBlas Zheng MD MD cha Martinez, Erika RN RN em6 Corrections: (The following items were deleted from the chart) 15:55 12:51 [facility] [place] em6
--- NOTE | 2022-02-02 13:44 | RAD REPORT ---
EXAM DESCRIPTION: RAD - Chest Single View - 02/02/2022 1:11 pm CLINICAL HISTORY: COUGH Chest pain. COMPARISON: No comparisons FINDINGS: Portable technique limits examination quality. The lungs are grossly clear. The heart is normal in size. No displaced fractures.Sternotomy wires pre sent. Multi lead pacer device present. Right-sided port catheter has tip in the SVC. Cervical spine h ardware plate. IMPRESSION: No acute intrathoracic process suspected.
--- NOTE | 2022-02-02 14:06 | RAD REPORT ---
EXAM DESCRIPTION: CT - Head C Spine Cap Wo Con - 02/02/2022 1:35 pm CLINICAL HISTORY: Trauma, head and neck injury. Chest, abdomen and pelvis pain. fall COMPARISON: Abdomen Pelvis W Contrast dated 08/10/2021; Head Brain Wo Cont dated 10/01/2021; Abdomen Pelvis W Contrast dated 01/02/2022; Bone Imaging Whole Body dated 08/10/2021 TECHNIQUE: CT head without contrast. CT cervical spine without contrast with coronal and sagittal reformatted images. CT chest, abdomen and pelvis without contrast with coronal and sagittal reformatted images of the spi ne. All CT scans are performed using dose optimization technique as appropriate and may include automated exposure control or mA/KV adjustment according to patient size. FINDINGS: CT HEAD WITHOUT CONTRAST: No intracranial hemorrhage, hydrocephalus or extra-axial fluid collection. Mild periventricular and d eep white matter chronic microvascular ischemic changes. No areas of brain edema or midline shift. Ve rtebral atherosclerosis. The paranasal sinuses and mastoids are clear. The calvarium is intact. CT CERVICAL SPINE WITHOUT CONTRAST: No fracture or subluxation. Anterior fusion hardware is present spanning C4-7. Minimal degenerative a nterolisthesis C3 on 4 and C7 on T1. The prevertebral soft tissues are normal in thickness. CT CHEST, ABDOMEN, PELVIS WITHOUT CONTRAST: NOTE: Lack of contrast is a significant limitation in the assessment of trauma related findings. Spec ifically, solid organ, vascular and bowel evaluation is significantly limited. In the posterior left gutter there is subpleural 13 mm pulmonary nodule seen, increased in size mildl y since 08/10/2021. More inferiorly additional subpleural nodule is present measuring 11 mm, also inc reased in size from 8 mm on of 07/21/2021.Pacemaker wires noted.No pneumothorax or pericardial/pleura l fluid. Right-sided port catheter is in place. No evidence of intra-abdominal visceral injury, free fluid or free air is seen within the above detai led limitations. Sclerotic lesion again noted in the T11 vertebral body. Subtle sclerosis also seen affecting S1 level . No acute fracture is demonstrated. Old mild L1 compression deformity anteriorly. IMPRESSION: Negative for acute traumatic findings within the above detailed limitations. There has been mild suspected size increase left posterior gutter subpleural nodularity since 022. Recommend follow-up nonemergent PET-CT assessment. Mild sclerotic lesions involving T11 and S1 are stable.
[2022-02-02 14:24] LABS: Absolute Lymphocytes (CBC) 0.9 K/uL (0.7-4.9); Hematocrit 41.8 % (39.6-49.0); MCV 81.8 fL (80-100); MPV 6.5 fL (7.6-11.3); RBC Red Blood Cell Count 5.11 M/uL (4.33-5.43)
[2022-02-02 14:29] LABS: Protime INR 1.04
[2022-02-02 15:03] LABS: Alkaline Phosphatase 74 U/L (45-117); BUN Blood Urea Nitrogen 11 mg/dL (7-18); Bicarbonate 26 mmol/L (21-32); Bilirubin Direct 0.2 mg/dL (0-0.2); Bilirubin Total 1.4 mg/dL (0.2-1.0); Glomerular Filtration Rate 91 ml/min (=/>90); Glucose Level 153 mg/dL (74-106); NT PRO-BNP 3971 pg/mL (<125); Protein, Total 7.9 g/dL (6.4-8.2); Sodium Level 129 mmol/L (136-145)
[2022-02-02 15:04] LABS: ALT/SGPT < 10 U/L (12-78); AST/SGOT 26 U/L (15-37); Magnesium 2.1 mg/dL (1.8-2.4)
[2022-02-02 15:05] LABS: Troponin High Sensitivity 72.2 pg/mL (<58.9)
[2022-02-02 15:07] LABS: Urine Blood 3+ (Negative); Urine Glucose Negative (Negative); Urine Protein Negative (Negative); Urine Specific Gravity 1.015 (1.005-1.030)
[2022-02-02 16:02] VITALS: TEMP 97.6
[2022-02-02 16:06] VITALS: BP 159/80; O2SAT 97
--- NOTE | 2022-02-05 19:21 | EKG ---
Test Date: 2022-02-02 Test Time: 12:56:19 Biomedical Equipment Specialist: MEASUREMENT RESULTS: Intervals: Rate: 76 DC: 192 QRSD: 102 QT: 438 QTc: 492 [place]: P: DC: 192 QRS: 7 T: 45 INTERPRETIVE STATEMENTS: Atrial-paced rhythm with occasional premature ventricular complexes Possible Inferior infarct, age undetermined Cannot rule out Anterior infarct, age undetermined Abnormal ECG No previous ECG available for comparison Electronically Signed On 02-05-22 19:11:23 [employer] by Teodoro Mota
== END 2022-02-02 15:55 | disposition short-term general hospital (02) ==
LOC: ER 11:59
DX: G95.29 Other cord compression (principal); C72.0 Malignant neoplasm of spinal cord; C61 Malignant neoplasm of prostate; Z95.0 Presence of cardiac pacemaker; Z95.1 Presence of aortocoronary bypass graft; Z79.82 Long term (current) use of aspirin
CPT/HCPCS: 93005; 87088; 85025; 87086; 80048; 36415; 83735; 85610; 80076; 81003; 84484; 83880; 70450; 71250; 72125; 71045; 96375; 96374; 99285; J3010; J1100; J2405

== ENCOUNTER 2022-10-31 17:40 | Inpatient (IN) | payer OTHER ==
--- OUTSIDE RECORDS SUMMARY | 2022-10-31 18:07 | XMS REPORT | Continuity of Care Document ---
:1950 Author Organization [facility] t Address [address] [place] [address] [place] [id number] Care Team Providers Name Role Phone RUY BANSAL Jessie Primary Care Physician Unavailable JEFFERSON BRAGG Attending Clinician Unavailable Provider, Unknown Attending Clinician Unavailable BROOKE PATE Attending Clinician Unavailable BROOKE PATE Attending Clinician Unavailable Sangeeta GONZALEZ, Arron Tyson Attending Clinician XENIA BLANCHARD Attending Clinician Unavailable Janell Khan MA Attending Clinician Unavailable Kd GONZALEZ, Ramon Gonzalez Attending Clinician Shree Koroma MD Attending Clinician Deshawn Flores MD Attending Clinician France Khan MD Attending Clinician Radhames RT, Maite Attending Clinician Unavailable Desi GONZALEZ, Gilles Carrasquillo Attending Clinician Belem ELLIOTT, Teagan Attending Clinician Doctor Unassigned, [place] Attending Clinician Unavailable STONE ADAME Attending Clinician Unavailable Hamzah Barr DO Attending Clinician Stone Adame MD Attending Clinician Demetrio Tanner MD Attending Clinician [phone] JEFFERSON BRAGG Attending Clinician Unavailable SAMREEN AGARWAL Attending Clinician Unavailable JOCELYN HIGGINS Attending Clinician Unavailable JEFFERSON BRAGG Admitting Clinician Unavailable BROOKE PATE Admitting Clinician Unavailable SHREE KOROMA Admitting Clinician Unavailable STONE ADAME Admitting Clinician Unavailable Stone Adame MD Admitting Clinician RUY BANSAL Admitting Clinician Unavailable Payers Payer Name Policy Type Policy Number Effective Date Expiration Date [place] [employer]ET[employer] MEDICARE [id number] 2019 PPO 00:00:00 [employer]ET[employer] PPO OPEN [id number] [facility] NAP Problems Condition Condition Condition Status Onset Resolution Last Treating Co mments Source Name Details Category Date Date Treatment Clinician Date Cerebrovas Cerebrovas Disease Active M ethodi cular cular 7 [facility] accident accident 00:00: Hospit a (CVA) (CVA) 00 l Sick sinus Sick 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 without without angina angina pectoris pectoris Essential Essential Disease Active Uni vers hypertensi hypertensi 3-21 it y of on on 00:00: [place] 00 [facility] COVID-19 COVID-19 Disease Active Unive rs 3-20 ity of 00:00: [place] 00 [facility] Memory Memory Disease Active [...] Date Date Clinician NO KNOWN Allergy Active [facility] NO KNOWN Drug Active [facility] ALLERG[facility] Class ity of S [facility] Family History Family Member Diagnosis Comments Start Date Stop Date Source [facility] Social History Social Habit Start Date Stop Date Quantity Comments Source Gender identity 2020-07-18 Identifies as male M ethodist 15:36:00 gender (finding) Hospital Sexual orientation 2020-07-18 Heterosexual Meth odist 15:36:00 (finding) Hospital History of tobacco Chews Tobacco Met hodist use Hospital History SDOH [facility] Alcohol Std Dr[facility] SDOH [facility] Alcohol Binge Medical Kriss[address] ter Exposure to Not sure [facility] SARS-CoV-2 (event) [facility] History SDOH [facility] Alcohol Comment Medical C enter History of Social 2022-05-25 2022-05-[address] function 00:00:00 00:00:00 Hospital Tobacco use and 2021-09-21 2021-09-21 User of smokeless Me thodist exposure 00:00:00 00:00:00 tobacco Hospital Alcohol intake 2019-11-05 2019-11-05 Current non-drinker [facility] (finding) History SDOH 2019-10-25 2019-10-[address] [facility] Alcohol Frequency 00:00:00 00:00:00 Medical Center Sex Assigned At [address] 00[facility] Smoking Status Start Date Stop Date Source Ex-smoker 2021-09-21 00:00:00 2021-09-21 00:00:00 [facility] Never smoker General acute hospital Medications Ordered Filled Start Stop Current Ordering Indication Dosage Frequency Signature Comments Components Source Medication Medication Date Date Medication? Clinician (SIG) Name Name acetaminoph 2022-0 Yes 500mg Q6H Take 500 [...] (six) hours as needed for mild pain. empaglifloz 2021-0 Yes 1{tbl} QD Take 1 [facility] in-linaglip 7-[address] tin 13:01: mouth Hospita (Glyxambi) 49 daily. l 25-5 mg tablet triptorelin 2021-0 Yes Q90D Inject Meth valencia pamoate -[address] (TRELSTAR 13:01: shoulder, Hos efren DEPOT IM) 49 thigh, or l buttocks every 3 (three) months. traMADoL 2021-0 Yes [id number] 50mg Q6H Take 50 mg Me thodi [...] MG 24 hr 49 l tablet simvastatin 2021-0 Yes 80mg QD Take 80 mg [facility] (ZOCOR) 80 7-[address] MG tablet 13:01: nightly. [facility]osp [facility] 49 l citalopram 2021-0 Yes 40mg QD Take 40 mg M ethodi (CeleXA) 40 7-[address] MG tablet 13:01: daily. Hospit a 49 l eszopiclone 0 Yes 3mg QD Take 3 mg M ethodi (LUNESTA) 3 7-[address] mg tablet 13:01: nightly. [facility]osp [facility] 49 Take l immediatel y before bedtime empaglifloz 2021-0 Yes 1{tbl} QD Take 1 [facility] in-linaglip -[address] tin 13:01: mouth Hospita (Glyxambi) 49 daily. l 25-5 mg tablet triptorelin 2021-0 Yes Q90D Inject Meth valencia pamoate 10-[address] (TRELSTAR 13:01: shoulder, Hos efren DEPOT IM) 49 thigh, or l buttocks every 3 (three) months. traMADoL 2021-0 Yes [id number] 50mg Q6H Take 50 mg [facility] (ULTRAM) 50 - by mouth st mg tablet 13:01: every 6 Hospi ta 49 (six) l hours as needed for moderate pain .acute pain. valsartan 0 Yes 80mg QD Take 80 mg [facility] (DIOVAN) 80 7-[address] MG tablet 13:01: daily. Hospit a 49 l isosorbide 0 Yes 30mg QD Take 30 mg M ethodi mononitrate 7- by mouth st (IMDUR) 30 13:01: daily. [...] Take l immediatel y before bedtime empaglifloz 2021-0 Yes 1{tbl} QD Take 1 [facility] in-linaglip - tablet by st tin 13:01: mouth Hospita (Glyxambi) 49 daily. l 25-5 mg tablet triptorelin 2022-0 Yes Q90D Inject Meth valencia pamoate 7-[address] (TRELSTAR 13:01: shoulder, Hos efren DEPOT IM) 49 thigh, or l buttocks every 3 (three) months. traMADoL 0 Yes [id number] 50mg Q6H Take 50 mg Me thodi [...] 49 daily. l 25-5 mg tablet triptorelin 2021-0 Yes Q90D Inject Meth valencia pamoate 7-[address] (TRELSTAR 13:01: shoulder, Hos efren DEPOT IM) 49 thigh, or l buttocks every 3 (three) months. traMADoL 2021-0 Yes [id number] 50mg Q6H Take 50 mg [facility] (ULTRAM) 50 7-[address] mg tablet 13:01: every 6 Hospi ta 49 (six) l hours as needed for moderate pain .acute pain. valsartan 0 Yes 80mg QD Take 80 mg [facility] (DIOVAN) 80 7-[address] MG tablet 13:01: daily. Hospit a 49 l isosorbide 2021-0 Yes 30mg QD Take 30 mg M [...] 0 Yes Q90D Inject Meth valencia pamoate 7-[address] (TRELSTAR 13:01: shoulder, Hos efren DEPOT IM) 49 thigh, or l buttocks every 3 (three) months. traMADoL 0 Yes [id number] 50mg Q6H Take 50 mg [facility] (ULTRAM) 50 7-[address] mg tablet 13:01: every 6 Hospi ta 49 (six) l hours as needed for moderate pain .acute pain. valsartan 0 Yes 80mg QD Take 80 mg [facility] (DIOVAN) 80 7-[address] MG tablet 13:01: daily. Hospit a 49 l isosorbide 2021-0 Yes 30mg QD Take 30 mg M ethodi mononitrate 7-[address] (IMDUR) 30 13:01: daily. Hospi ta MG 24 hr 49 l tablet simvastatin 2021-0 Yes 80mg QD Take 80 mg Methodi [...] Take l immediatel y before bedtime empaglifloz 2021-0 Yes 1{tbl} QD Take 1 [facility] in-linaglip -[address] tin 13:01: mouth Hospita (Glyxambi) 49 daily. l 25-5 mg tablet triptorelin 0 Yes Q90D Inject Meth valencia pamoate 10-[address] (TRELSTAR 13:01: shoulder, Hos efren DEPOT IM) 49 thigh, or l buttocks every 3 (three) months. traMADoL 0 Yes [id number] 50mg Q6H Take 50 mg Me thodi [...] triptorelin Yes Q90D Inject Meth valencia pamoate 7-[address] (TRELSTAR 13:01: shoulder, Hos efren DEPOT IM) 49 thigh, or l buttocks every 3 (three) months. traMADoL Yes [id number] 50mg Q6H Take 50 mg Me thodi [...] MG 24 hr 49 l tablet simvastatin Yes 80mg QD Take 80 mg Methodi [...] 0 Yes Q90D Inject Meth valencia pamoate 7-[address] (TRELSTAR 13:01: shoulder, Hos efren DEPOT IM) 49 thigh, or l buttocks every 3 (three) months. traMADoL 2021-0 Yes [id number] 50mg Q6H Take 50 mg [facility] (ULTRAM) 50 7-[address] mg tablet 13:01: every 6 Hospi ta 49 (six) l hours as needed for moderate pain .acute pain. valsartan 0 Yes 80mg QD Take 80 mg [facility] (DIOVAN) 80 7-[address] MG tablet 13:01: daily. Hospit a 49 l isosorbide 2021-0 Yes 30mg QD Take 30 mg M [...] 0 Yes Q90D Inject Meth valencia pamoate 7-[address] (TRELSTAR 13:01: shoulder, Hos efren DEPOT IM) 49 thigh, or l buttocks every 3 (three) months. traMADoL 2021-0 Yes [id number] 50mg Q6H Take 50 mg [facility] (ULTRAM) 50 7-[address] mg tablet 13:01: every 6 Hospi ta 49 (six) l hours as needed for moderate pain .acute pain. valsartan 0 Yes 80mg QD Take 80 mg [facility] (DIOVAN) 80 7-[address] MG tablet 13:01: daily. Hospit a 49 l isosorbide 2022-0 Yes 30mg QD Take 30 mg M [...] every 3 (three) months. traMADoL 0 Yes [id number] 50mg Q6H Take 50 mg Me thodi [...] 13:01: daily. Hospit a 49 l eszopiclone 2021-0 Yes 3mg QD Take 3 mg M ethodi (LUNESTA) 3 7-[address] mg tablet 13:01: nightly. [facility]osp [facility] 49 Take l immediatel y before bedtime empaglifloz 2021-0 Yes 1{tbl} QD Take 1 [facility] in-linaglip 7-[address] tin 13:01: mouth Hospita (Glyxambi) 49 daily. l 25-5 mg tablet triptorelin 2021-0 Yes Q90D Inject Meth valencia pamoate - into the st (TRELSTAR 13:01: shoulder, Hos efren DEPOT IM) 49 thigh, or l buttocks every 3 (three) months. traMADoL 2021-0 Yes [id number] 50mg Q6H Take 50 mg Me thodi [...] 13:01: daily. Hospit a 49 l eszopiclone 2021-0 Yes 3mg QD Take 3 mg M ethodi (LUNESTA) 3 7-[address] mg tablet 13:01: nightly. [facility]osp [facility] 49 Take l immediatel y before bedtime empaglifloz 2021-0 Yes 1{tbl} QD Take 1 [facility] in-linaglip 7-[address] tin 13:01: mouth Hospita (Glyxambi) 49 daily. l 25-5 mg tablet triptorelin 2021-0 Yes Q90D Inject Meth valencia pamoate 7-[address] (TRELSTAR 13:01: shoulder, Hos efren DEPOT IM) 49 thigh, or l buttocks every 3 (three) months. traMADoL 2021-0 Yes [id number] 50mg Q6H Take 50 mg Me thodi [...] Take l immediatel y before bedtime empaglifloz 2021-0 Yes 1{tbl} QD Take 1 [facility] in-linaglip 7-[address] tin 13:01: mouth Hospita (Glyxambi) 49 daily. l 25-5 mg tablet triptorelin 2021-0 Yes Q90D Inject Meth valenica pamoate 7-[address] (TRELSTAR 13:01: shoulder, Hos efren DEPOT IM) 49 thigh, or l buttocks every 3 (three) months. traMADoL 2021-0 Yes [id number] 50mg Q6H Take 50 mg [facility] (ULTRAM) 50 7-[address] mg tablet 13:01: every 6 Hospi ta 49 (six) l hours as needed for moderate pain .acute pain. valsartan 2021-0 Yes 80mg QD Take 80 mg [facility] (DIOVAN) 80 7-[address] MG tablet 13:01: daily. Hospit a 49 l isosorbide 2021-0 Yes 30mg QD Take 30 mg M ethodi mononitrate 7-[address] (IMDUR) 30 13:01: daily. Hospi ta MG 24 hr 49 l tablet simvastatin 2021-0 Yes 80mg QD Take 80 mg Methodi [...] Take l immediatel y before bedtime empaglifloz 2021-0 Yes 1{tbl} QD Take 1 [facility] in-linaglip 7-[address] tin 13:01: mouth Hospita (Glyxambi) 49 daily. l 25-5 mg tablet triptorelin 0 Yes Q90D Inject Meth valencia pamoate -[address] (TRELSTAR 13:01: shoulder, Hos efren DEPOT IM) 49 thigh, or l buttocks every 3 (three) months. traMADoL 2021-0 Yes [id number] 50mg Q6H Take 50 mg [facility] (ULTRAM) 50 7-[address] mg tablet 13:01: every 6 Hospi ta 49 (six) l hours as needed for moderate pain .acute pain. valsartan 2021-0 Yes 80mg QD Take 80 mg [facility] (DIOVAN) 80 7-[address] MG tablet 13:01: daily. Hospit a 49 l isosorbide 2021-0 Yes 30mg QD Take 30 mg M ethodi mononitrate 7-[address] (IMDUR) 30 13:01: daily. Hospi ta MG 24 hr 49 l tablet simvastatin 2021-0 Yes 80mg QD Take 80 mg Methodi [...] 0 Yes Q90D Inject Meth valencia pamoate 10-[address] (TRELSTAR 13:01: shoulder, Hos efren DEPOT IM) 49 thigh, or l buttocks every 3 (three) months. traMADoL Yes [id number] 50mg Q6H Take 50 mg Me thodi [...] Take l immediatel y before bedtime empaglifloz 2021-0 Yes 1{tbl} QD Take 1 [facility] in-linaglip 7-[address] tin 13:01: mouth Hospita (Glyxambi) 49 daily. l 25-5 mg tablet triptorelin 2021-0 Yes Q90D Inject Meth valencia pamoate 7-[address] (TRELSTAR 13:01: shoulder, Hos efren DEPOT IM) 49 thigh, or l buttocks every 3 (three) months. traMADoL 2021-0 Yes [id number] 50mg Q6H Take 50 mg Me thodi [...] Take l immediatel y before bedtime empaglifloz 2021-0 Yes 1{tbl} QD Take 1 [facility] in-linaglip 7-[address] tin 13:01: mouth Hospita (Glyxambi) 49 daily. l 25-5 mg tablet triptorelin 2021-0 Yes Q90D Inject Meth valencia pamoate 7-[address] (TRELSTAR 13:01: shoulder, Hos efren DEPOT IM) 49 thigh, or l buttocks every 3 (three) months. traMADoL 2021-0 Yes [id number] 50mg Q6H Take 50 mg Me thodi [...] 0 Yes Q90D Inject Meth valencia pamoate 7-[address] (TRELSTAR 13:01: shoulder, Hos efren DEPOT IM) 49 thigh, or l buttocks every 3 (three) months. traMADoL 2021-0 Yes [id number] 50mg Q6H Take 50 mg [facility] (ULTRAM) 50 7-[address] mg tablet 13:01: every 6 Hospi ta 49 (six) l hours as needed for moderate pain .acute pain. valsartan 0 Yes 80mg QD Take 80 mg [facility] (DIOVAN) 80 7-[address] MG tablet 13:01: daily. Hospit a 49 l isosorbide 2022-0 Yes 30mg QD Take 30 mg M [...] 0 Yes Q90D Inject Meth valencia pamoate 7-[address] (TRELSTAR 13:01: shoulder, Hos efren DEPOT IM) 49 thigh, or l buttocks every 3 (three) months. traMADoL 0 Yes [id number] 50mg Q6H Take 50 mg Me thodi [...] 49 Take l immediatel y before bedtime eszopiclone 2021-0 Yes 3mg QD Take 3 mg M ethodi (LUNESTA) 3 7-[address] mg tablet 13:01: nightly. [facility] 49 Take l immediatel y before bedtime empaglifloz 2021-0 Yes 1{tbl} QD Take 1 [facility] in-linaglip 7-[address] tin 13:01: mouth Hospita (Glyxambi) 49 daily. l 25-5 mg tablet triptorelin 0 Yes Q90D Inject Meth valencia pamoate - into the st (TRELSTAR 13:01: shoulder, Hos efren DEPOT IM) 49 thigh, or l buttocks every 3 (three) months. traMADoL 0 Yes [id number] 50mg Q6H Take 50 mg Me thodi [...] if SBP is less than 120 olmesartan 2022-0 Yes 20mg Q.5D Take 1 [facility] di (BENICAR) 7-13 tablet (20 st 20 MG 00:00: mg total) Hospita tablet 00 by mouth 2 l (two) times a day. Hold if SBP is less than 120 olmesartan 2022-0 Yes 20mg Q.5D Take 1 [facility] di (BENICAR) 7-13 tablet (20 st 20 MG 00:00: mg total) Hospita tablet 00 by mouth 2 l (two) times a day. Hold if SBP is less than 120 olmesartan 2022-0 Yes 20mg Q.5D Take 1 [facility]o di (BENICAR) 7-13 tablet (20 st 20 MG 00:00: mg total) Hospita tablet 00 by mouth 2 l (two) times a day. Hold if SBP is less than 120 olmesartan 2022-0 Yes 20mg Q.5D Take 1 [facility]o di (BENICAR) 7-13 tablet (20 st 20 MG 00:00: mg total) Hospita tablet 00 by mouth 2 l (two) times a day. Hold if SBP is less than 120 olmesartan 2022-0 Yes 20mg Q.5D Take 1 Metho di (BENICAR) 7-13 tablet (20 st 20 MG 00:00: mg total) Hospita tablet 00 by mouth 2 l (two) times a day. Hold if SBP is less than 120 olmesartan 2022-0 Yes 20mg Q.5D Take 1 [facility]o di (BENICAR) 7-13 tablet (20 st 20 MG 00:00: mg total) Hospita tablet 00 by mouth 2 l (two) times a day. Hold if SBP is less than 120 olmesartan 2022-0 Yes 20mg Q.5D Take 1 Metho di (BENICAR) 7-13 tablet (20 st 20 MG 00:00: mg total) Hospita tablet 00 by mouth 2 l (two) times a day. Hold if SBP is less than 120 olmesartan 2022-0 Yes 20mg Q.5D Take 1 Metho di (BENICAR) 7-13 tablet (20 st 20 MG 00:00: mg total) Hospita tablet 00 by mouth 2 l (two) times a day. Hold if SBP is less than 120 olmesartan 2022-0 Yes 20mg Q.5D Take 1 Metho di (BENICAR) 7-13 tablet (20 st 20 MG 00:00: mg total) Hospita tablet 00 by mouth 2 l (two) times a day. Hold if SBP is less than 120 olmesartan 2022-0 Yes 20mg Q.5D Take 1 [facility]o di (BENICAR) 7-13 tablet (20 st 20 MG 00:00: mg total) Hospita tablet 00 by mouth 2 l (two) times a day. Hold if SBP is less than 120 olmesartan 2022-0 Yes 20mg Q.5D Take 1 [facility]o di (BENICAR) 7-13 tablet (20 st 20 MG 00:00: mg total) Hospita tablet 00 by mouth 2 l (two) times a day. Hold if SBP is less than 120 olmesartan 2022-0 Yes 20mg Q.5D Take 1 [facility]o di (BENICAR) 7-13 tablet (20 st 20 MG 00:00: mg total) Hospita tablet 00 by mouth 2 l (two) times a day. Hold if SBP is less than 120 olmesartan 2022-0 Yes 20mg Q.5D Take 1 [facility]o di (BENICAR) 7-13 tablet (20 st 20 MG 00:00: mg total) Hospita tablet 00 by mouth 2 l (two) times a day. Hold if SBP is less than 120 olmesartan 2022-0 Yes 20mg Q.5D Take 1 [facility]o di (BENICAR) 7-13 tablet (20 st 20 MG 00:00: mg total) Hospita tablet 00 by mouth 2 l (two) times a day. Hold if SBP is less than 120 olmesartan 2022-0 Yes 20mg Q.5D Take 1 [facility]o di (BENICAR) 7-13 tablet (20 st 20 MG 00:00: mg total) Hospita tablet 00 by mouth 2 l (two) times a day. Hold if SBP is less than 120 olmesartan 2022-0 Yes 20mg Q.5D Take 1 [facility]o di (BENICAR) 7-13 tablet (20 st 20 MG 00:00: mg total) Hospita tablet 00 by mouth 2 l (two) times a day. Hold if SBP is less than 120 olmesartan 2022-0 Yes 20mg Q.5D Take 1 [facility]o di (BENICAR) 7-13 tablet (20 st 20 MG 00:00: mg total) Hospita tablet 00 by mouth 2 l (two) times a day. Hold if SBP is less than 120 olmesartan 2022-0 Yes 20mg Q.5D Take 1 [facility]o di (BENICAR) 7-13 tablet (20 st 20 MG 00:00: mg total) Hospita tablet 00 by mouth 2 l (two) times a day. Hold if SBP is less than 120 olmesartan 2022-0 Yes 20mg Q.5D Take 1 Metho di (BENICAR) 7-13 tablet (20 st 20 MG 00:00: mg total) Hospita tablet 00 by mouth 2 l (two) times a day. Hold if SBP is less than 120 clopidogrel 2022-0 2022- No 75mg QD Take 75 mg [facility] (PLAVIX) 75 09-24-[address] mg tablet 09:14: 00:00 daily. Hospi ta 12 :00 l clopidogrel 2022-0 2022- No 75mg QD Take 75 mg [facility] (PLAVIX) 75 09-24-[address] mg tablet 09:14: 00:00 daily. Hospi ta 12 :00 l clopidogrel 2022-0 2022- No 75mg QD Take 75 mg [facility] (PLAVIX) 75 09-24-[address] mg tablet 09:14: 00:00 daily. Hospi ta 12 :00 l clopidogrel 2022-0 2022- No 75mg QD Take 75 mg [facility] (PLAVIX) 75 09-24-[address] mg tablet 09:14: 00:00 daily. Hospi ta 12 :00 l clopidogrel 2022-0 2022- No 75mg QD Take 75 mg [facility] (PLAVIX) 75 09-24-[address] mg tablet 09:14: 00:00 daily. Hospi ta 12 :00 l clopidogrel 2022-0 2022- No 75mg QD Take 75 mg [facility] (PLAVIX) 75 09-24-[address] mg tablet 09:14: 00:00 daily. Hospi ta 12 :00 l clopidogrel 2022-0 2022- No 75mg QD Take 75 mg [facility] (PLAVIX) 75 09-24-[address] mg tablet 09:14: 00:00 daily. [facility] ta 12 :00 l clopidogrel 2022-0 2022- No 75mg QD Take 75 mg [facility] (PLAVIX) 75 09-24-[address] mg tablet 09:14: 00:00 daily. [facility] 12 :00 l clopidogrel 2022-0 2022- No 75mg QD Take 75 mg [facility] (PLAVIX) 75 09-24-[address] mg tablet 09:14: 00:00 daily. [facility] 12 :00 l clopidogrel 2022-0 2022- No 75mg QD Take 75 mg [facility] (PLAVIX) 75 09-24-[address] mg tablet 09:14: 00:00 daily. [facility] 12 :00 l clopidogrel 2022-0 2022- No 75mg QD Take 75 mg [facility] (PLAVIX) 75 09-24-[address] mg tablet 09:14: 00:00 daily. [facility] 12 :00 l clopidogrel 2022-0 2022- No 75mg QD Take 75 mg [facility] (PLAVIX) 75 09-24-[address] mg tablet 09:14: 00:00 daily. [facility] 12 :00 l clopidogrel 2022-0 2022- No 75mg QD Take 75 mg [facility] (PLAVIX) 75 09-24-[address] mg tablet 09:14: 00:00 daily. [facility] 12 :00 l clopidogrel 2022-0 2022- No 75mg QD Take 75 mg [facility] (PLAVIX) 75 09-24-[address] mg tablet 09:14: 00:00 daily. [facility] 12 :00 l clopidogrel 2022-0 2022- No 75mg QD Take 75 mg [facility] (PLAVIX) 75 09-24-[address] mg tablet 09:14: 00:00 daily. [facility] 12 :00 l clopidogrel 2022-0 2022- No 75mg QD Take 75 mg [facility] (PLAVIX) 75 09-24-[address] mg tablet 09:14: 00:00 daily. [facility] 12 :00 l clopidogrel 2022-0 2022- No 75mg QD Take 75 mg [facility] (PLAVIX) 75 09-24-[address] mg tablet 09:14: 00:00 daily. Hospi ta 12 :00 l clopidogrel 2021-0 2021- No 75mg QD Take 75 mg [facility] (PLAVIX) 75 09-[address] mg tablet 09:14: 00:00 daily. Hospi ta 12 :00 l clopidogrel 2021-0 2021- No 75mg QD Take 75 mg [facility] (PLAVIX) 75 09-24-[address] mg tablet 09:14: 00:00 daily. Hospi ta 12 :00 l clopidogreL 2021-0 Yes 75mg QD Take 1 Meth valencia (PLAVIX) 75 -08 tablet (75 st mg tablet 00:00: mg total) Hos efren 00 by mouth l daily. aspirin 0 Yes 81mg QD Take 1 [facility] (ECOTRIN) -08 tablet (81 st 81 MG 00:00: mg total) Hospita enteric 00 by mouth l coated daily. tablet atorvastati Yes 40mg QD Take 1 Meth valencia n (LIPITOR) 09-24 tablet (40 st 40 mg 00:00: mg total) Hospita tablet 00 by mouth l nightly. B Yes 1{tbl} QD Take 1 [facility] complex-vit 09-[address] nix 00:00: mouth Hospita C-folic 00 daily. l acid (FOLBEE PLUS 5 MG) 5 mg tablet per tablet insulin Yes 0U [id number] Inject [facility] lispro 09-24 [id number] 0-12 Units s t (ADMELOG) 00:00: 3D under the Hos efren 100 unit/mL 00 skin 3 l injection (three) times a day before meals. lidocaine Yes 1{patch Q24H Place 1 [facility] (LIDODERM) 09-24 } patch on st 5 % 00:00: the skin Hospita 00 daily. l Remove & Discard patch within 12 hours or as directed by MD reilly 0 Yes 50mg QD Take 0.5 Meth[facility] di mononitrate 7-[address] , vit B1, 00:00: (50 mg Hospit a (B-1) 100 00 total) by l mg tablet mouth daily. clopidogreL 0 Yes 75mg QD Take 1 [...] tablet 00 by mouth l nightly. B 2021-0 Yes 1{tbl} QD Take 1 [facility] complex-vit -[address] nix 00:00: mouth Hospita C-folic 00 daily. l acid (FOLBEE PLUS 5 MG) 5 mg tablet per tablet insulin Yes 0U [id number] Inject Me [facility] lispro 09-24 [id number] 0-12 Units s t (ADMELOG) 00:00: 3D [...] by l mg tablet mouth daily. clopidogreL 0 Yes 75mg QD Take 1 Meth valencia (PLAVIX) 75 -08 tablet (75 st mg tablet 00:00: mg total) Hos efren 00 by mouth l daily. aspirin 2021-0 Yes 81mg QD Take 1 [facility] (ECOTRIN) 7-08 tablet (81 st 81 MG 00:00: mg total) Hospita enteric 00 by mouth l coated daily. tablet atorvastati 2021-0 Yes 40mg QD Take 1 Meth valencia n (LIPITOR) 7-08 tablet (40 st 40 mg 00:00: mg total) Hospita tablet 00 by mouth l nightly. B 2021-0 Yes 1{tbl} QD Take 1 [facility] complex-vit 7-[address] nix 00:00: mouth Hospita C-folic 00 daily. l acid (FOLBEE PLUS 5 MG) 5 mg tablet per tablet insulin 0 Yes 0U [id number] Inject Me [facility] lispro -08 [id number] 0-12 Units s t (ADMELOG) 00:00: 3D under the Hos efren 100 unit/mL 00 skin 3 l injection (three) times a day before meals. lidocaine 2021-0 Yes 1{patch Q24H Place 1 [facility] (LIDODERM) 7-08 } patch on st 5 % 00:00: the skin Hospita 00 daily. l Remove & Discard patch within 12 hours or as directed by MD reilly 2021-0 Yes 50mg QD Take 0.5 [facility] di mononitrate [address] , vit B1, 00:00: (50 mg Hospit a (B-1) 100 00 total) by l mg tablet mouth daily. clopidogreL 0 Yes 75mg QD Take 1 Meth valencia (PLAVIX) 75 -08 tablet (75 st mg tablet 00:00: mg total) Hos efren 00 by mouth l daily. aspirin 0 Yes 81mg QD Take 1 [facility] (ECOTRIN) [...] MG) 5 mg tablet per tablet insulin 2021-0 Yes 0U [id number] Inject Me [facility] lispro -08 [id number] 0-12 Units s t (ADMELOG) 00:00: 3D under the Hos efren 100 unit/mL 00 skin 3 l injection (three) times a day before meals. lidocaine 2021-0 Yes 1{patch Q24H Place 1 [facility] (LIDODERM) 7-08 } patch on st 5 % 00:00: the skin Hospita 00 daily. l Remove & Discard patch within 12 hours or as directed by thiamine 0 Yes 50mg QD Take 0.5 Metho di [...] tablet 00 by mouth l nightly. B 0 Yes 1{tbl} QD Take 1 [facility] complex-vit -[address] [facility] 00:[facility]: [facility] C-folic 00 daily. l acid (FOLBEE PLUS 5 MG) 5 mg tablet per tablet insulin 0 Yes 0U [id number] Inject [facility] lispro 08 [id number] 0-12 Units s t (ADMELOG) 00:00: 3D under the Hos efren 100 unit/mL 00 skin 3 l injection (three) times a day before meals. lidocaine 0 Yes 1{patch Q24H Place 1 [facility] (LIDODERM) 09-24 } patch on st 5 % 00:00: the skin [facility] 00 daily. l Remove & Discard patch within 12 hours or as directed by thiamine 2021-0 Yes 50mg QD Take 0.5 Metho [...] mg tablet per tablet insulin Yes 0U [id number] Inject [facility] lispro 09-24 [id number] 0-12 Units s t (ADMELOG) 00:00: 3D under the [facility] efren 100 unit/mL 00 skin 3 l injection (three) times a day before meals. lidocaine Yes 1{patch Q24H Place 1 [facility] (LIDODERM) 09-24 } patch on st 5 % 00:00: the skin [facility] 00 daily. l Remove & Discard patch within 12 hours or as directed by thiamine Yes 50mg QD Take 0.5 Metho di mononitrate 7-[address] , vit B1, 00:00: (50 mg [facility] (B-1) 100 00 total) by l mg tablet mouth daily. clopidogreL Yes 75mg QD Take 1 Meth valencia [...] mg tablet per tablet insulin Yes 0U [id number] Inject [facility] lispro 7-08 [id number] 0-12 Units s t (ADMELOG) 00:00: 3D under the [facility] efren 100 unit/mL 00 skin 3 l injection (three) times a day before meals. lidocaine Yes 1{patch Q24H Place 1 [facility] (LIDODERM) 7-08 } patch on st 5 % 00:00: the skin [facility] 00 daily. l Remove & Discard patch within 12 hours or as directed by thiamine Yes 50mg QD Take 0.5 Metho di mononitrate 7-[address] , vit B1, 00:00: (50 mg [facility] (B-1) 100 00 total) by l mg tablet mouth daily. clopidogreL Yes 75mg QD Take 1 Meth valencia [...] mg tablet per tablet insulin Yes 0U [id number] Inject [facility] lispro 7-08 [id number] 0-12 Units s t (ADMELOG) 00:00: 3D under the [facility] efren 100 unit/mL 00 skin 3 l injection (three) times a day before meals. lidocaine Yes 1{patch Q24H Place 1 [facility] (LIDODERM) 7-08 } patch on st 5 % 00:00: the skin [facility] 00 daily. l Remove & Discard patch within 12 hours or as directed by thiamine Yes 50mg QD Take 0.5 Metho di [...] tablet 00 by mouth l nightly. B 0 Yes 1{tbl} QD Take 1 [facility] complex-vit -[address] [facility] 00:[facility]: [facility] C-folic 00 daily. l acid (FOLBEE PLUS 5 MG) 5 mg tablet per tablet insulin Yes 0U [id number] Inject [facility] lispro 09-24 [id number] 0-12 Units s t (ADMELOG) 00:00: 3D under the [facility] efren 100 unit/mL 00 skin 3 l injection (three) times a day before meals. lidocaine 0 Yes 1{patch Q24H Place 1 [facility] [...] mg tablet per tablet insulin Yes 0U [id number] Inject [facility] lispro - [id number] 0-12 Units s t (ADMELOG) 00:00: 3D [...] by l mg tablet mouth daily. clopidogreL Yes 75mg QD Take 1 [facility] (PLAVIX) 75 -08 tablet (75 st mg tablet 00:00: mg total) [facility] efren 00 by mouth l daily. aspirin 0 Yes 81mg QD Take 1 [facility] (ECOTRIN) [...] mg tablet per tablet insulin Yes 0U [id number] Inject [facility] lispro - [id number] 0-12 Units s t (ADMELOG) 00:00: 3D under the [facility] efren 100 unit/mL 00 skin 3 l injection (three) times a day before meals. lidocaine 2021-0 Yes 1{patch Q24H Place 1 [facility] (LIDODERM) 7-08 } patch on st 5 % 00:00: the skin [facility] 00 daily. l Remove & Discard patch within 12 hours or as directed by thiamine 2021- Yes 50mg QD Take 0.5 Metho di mononitrate 7-[address] , vit B1, 00:00: (50 mg Hospit [facility] (B-1) 100 00 total) by l mg tablet mouth daily. clopidogreL 0 Yes 75mg QD Take 1 [facility] (PLAVIX) 75 7-08 tablet (75 st mg tablet 00:00: mg total) Hos efren 00 by mouth l daily. aspirin 0 Yes 81mg QD Take 1 [facility] (ECOTRIN) -08 tablet (81 st 81 MG 00:00: mg total) [facility] enteric 00 by mouth l coated daily. tablet atorvastati Yes 40mg QD Take 1 Meth valencia n (LIPITOR) -08 tablet (40 st 40 mg 00:00: mg total) [facility]osp[facility] tablet 00 by mouth l nightly. B 0 Yes 1{tbl} QD Take 1 [facility] complex-vit -[address] [facility] 00:00: mouth [facility] C-folic 00 daily. l acid (FOLBEE PLUS 5 MG) 5 mg tablet per tablet insulin Yes 0U [id number] Inject [facility] lispro 7-08 [id number] 0-12 Units s t (ADMELOG) 00:00: 3D under the [facility] efren 100 unit/mL 00 skin 3 l injection (three) times a day before meals. lidocaine 2021-0 Yes 1{patch Q24H Place 1 [facility] (LIDODERM) 7-08 } patch on st 5 % 00:00: the skin [facility] 00 daily. l Remove & Discard patch within 12 hours or as directed by thiamine Yes 50mg QD Take 0.5 Metho di mononitrate 7-[address] , vit B1, 00:00: (50 mg [facility] (B-1) 100 00 total) by l mg tablet mouth daily. clopidogreL 2021-0 Yes 75mg QD Take 1 [facility] (PLAVIX) 75 7-08 tablet (75 st mg tablet 00:00: mg total) [facility] efren 00 by mouth l daily. aspirin 2-0 Yes 81mg QD Take 1 [facility] (ECOTRIN) 7-08 tablet (81 st 81 MG 00:00: mg total) [facility] enter[facility] 00 by mouth l coated daily. tablet atorvastati 2021-0 Yes 40mg QD Take 1 [facility] valencia n (LIPITOR) 7-08 tablet (40 st 40 mg 00:00: mg total) [facility]osp[facility] tablet 00 by mouth l nightly. B 2021-0 Yes 1{tbl} QD Take 1 [facility] complex-vit -[address] [facility] 00:00: mouth [facility] C-folic 00 daily. l acid (FOLBEE PLUS 5 MG) 5 mg tablet per tablet insulin 2021-0 Yes 0U [id number] Inject [facility] lispro 09-24 [id number] 0-12 Units s t (ADMELOG) 00:00: 3D under the [facility] efren 100 unit/mL 00 skin 3 l injection (three) times a day before meals. lidocaine 2021-0 Yes 1{patch Q24H Place 1 [facility] [...] efren 00 by mouth l daily. aspirin 2-0 Yes 81mg QD Take 1 [facility] (ECOTRIN) 7-08 tablet (81 st 81 MG 00:00: mg total) [facility] enter[facility] 00 by mouth l coated daily. tablet atorvastati 2021-0 Yes 40mg QD Take 1 [facility]encia n (LIPITOR) 7-08 tablet (40 st 40 mg 00:00: mg total) [facility]osp[facility] tablet 00 by mouth l nightly. B Yes 1{tbl} QD Take 1 [facility] complex-vit 7-[address] [facility] 00:00: mouth [facility] C-folic 00 daily. l acid (FOLBEE PLUS 5 MG) 5 mg tablet per tablet insulin Yes 0U [id number] Inject [facility] lispro 7-08 [id number] 0-12 Units s t (ADMELOG) 00:00: 3D under the [facility] efren 100 unit/mL 00 skin 3 l injection (three) times a day before meals. lidocaine Yes 1{patch Q24H Place 1 [facility] (LIDODERM) 7-08 } patch on st 5 % 00:00: the skin [facility] 00 daily. l Remove & Discard patch within 12 hours or as directed by MD reilly Yes 50mg QD Take 0.5 Metho di mononitrate 7-[address] , vit B1, 00:00: (50 mg [facility] (B-1) 100 00 total) by l mg tablet mouth daily. clopidogreL Yes 75mg QD Take 1 Meth valencia [...] mg tablet per tablet insulin Yes 0U Q.[id number] Inject [facility] lispro 7-08 [id number] 0-12 Units s t (ADMELOG) 00:00: 3D under the [facility] efren 100 unit/mL 00 skin 3 l injection (three) times a day before meals. lidocaine 2022-0 Yes 1{patch Q24H Place 1 [facility] (LIDODERM) 7-08 } patch on st 5 % 00:00: [...] MG) 5 mg tablet per tablet insulin 0 Yes 0U [id number] Inject [facility] lispro 7-08 [id number] 0-12 Units s t (ADMELOG) 00:00: 3D under the [facility] efren 100 unit/mL 00 skin 3 l injection (three) times a day before meals. lidocaine 0 Yes 1{patch Q24H Place 1 [facility] (LIDODERM) 7-08 } patch on st 5 % 00:00: the skin [facility] 00 daily. l Remove & Discard patch within 12 hours or as directed by thiamine Yes 50mg QD Take 0.5 Metho di [...] mg tablet per tablet insulin Yes 0U Q.[id number] Inject [facility] lispro 09-24 [id number] 0-12 Units s t (ADMELOG) 00:00: 3D under the [facility] efren 100 unit/mL 00 skin 3 l injection (three) times a day before meals. lidocaine Yes 1{patch Q24H Place 1 [facility] (LIDODERM) 09-24 } patch on st 5 % 00:00: the skin [facility] 00 daily. l Remove & Discard patch within 12 hours or as directed by MD reilly 2021- Yes 50mg QD Take 0.5 [facility] di mononitrate 7-[address] , vit B1, 00:00: (50 mg [facility] (B-1) 100 00 total) by l mg tablet mouth daily. clopidogreL 0 Yes 75mg QD Take 1 [...] tablet 00 by mouth l nightly. B 2021-0 Yes 1{tbl} QD Take 1 [facility] complex-vit 7-[address] [facility] 00:00: mouth [facility] C-folic 00 daily. l acid (FOLBEE PLUS 5 MG) 5 mg tablet per tablet insulin 0 Yes 0U [id number] Inject [facility] lispro 7-08 [id number] 0-12 Units s t (ADMELOG) 00:00: 3D under the [facility] efren 100 unit/mL 00 skin 3 l injection (three) times a day before meals. lidocaine 2021-0 Yes 1{patch Q24H Place 1 [facility] (LIDODERM) 7-08 } patch on st 5 % 00:00: the skin [facility] 00 daily. l Remove & Discard patch within 12 hours or as directed by thiamine 2021-0 Yes 50mg QD Take 0.5 [facility] di mononitrate 7-[address] , vit B1, 00:00: (50 mg [facility] (B-1) 100 00 total) by l mg tablet mouth daily. clopidogreL 0 Yes 75mg QD Take 1 [facility] (PLAVIX) 75 7-08 tablet (75 st mg tablet 00:00: mg total) [facility] efren 00 by mouth l daily. aspirin 0 Yes 81mg QD Take 1 [facility] (ECOTRIN) 7-08 tablet (81 st 81 MG 00:00: mg total) [facility] enter[facility] 00 by mouth l coated daily. tablet atorvastati 0 Yes 40mg QD Take 1 [facility] n (LIPITOR) 7-08 tablet (40 st 40 mg 00:00: mg total) [facility]osp[facility] tablet 00 by mouth l nightly. B 0 Yes 1{tbl} QD Take 1 [facility] complex-vit 7-[address] [facility] 00:00: mouth [facility] C-folic 00 daily. l acid (FOLBEE PLUS 5 MG) 5 mg tablet per tablet insulin 2021-0 Yes 0U [id number] Inject [facility] lispro 7-08 [id number] 0-12 Units s t (ADMELOG) 00:00: 3D under the [facility] efren 100 unit/mL 00 skin 3 l injection (three) times a day before meals. lidocaine 2021-0 Yes 1{patch Q24H Place 1 [facility] (LIDODERM) 7-08 } patch on st 5 % 00:00: the skin [facility] 00 daily. l Remove & Discard patch within 12 hours or as directed by thiamine Yes 50mg QD Take 0.5 Metho di mononitrate 7-[address] , vit B1, 00:00: (50 mg [facility] (B-1) 100 00 total) by l mg tablet mouth daily. clopidogreL Yes 75mg QD Take 1 Meth valencia [...] mg tablet per tablet insulin Yes 0U Q.[id number] Inject [facility] lispro -08 [id number] 0-12 Units s t (ADMELOG) 00:00: 3D under the [facility] efren 100 unit/mL 00 skin 3 l injection (three) times a day before meals. lidocaine Yes 1{patch Q24H Place 1 [facility] (LIDODERM) 08 } patch on st 5 % 00:00: the skin [facility] 00 daily. l Remove & Discard patch within 12 hours or as directed by thiamine Yes 50mg QD Take 0.5 Metho di mononitrate 7-[address] , vit B1, 00:00: (50 mg Hospit [facility] (B-1) 100 00 total) by l mg tablet mouth daily. traMADol 2021- No [id number] 50mg Q6H Take 50 mg [facility] (ULTRAM) 50 09-21 07-[address] mg tablet 17:22: 00:00 every 6 [facility] 12 :00 (six) l hours as needed for moderate pain .Acute Pain. traMADol 50mg Q6H Take 50 mg [facility] (ULTRAM) 50 7-05 07-[address] mg tablet 17:22: 00:00 every 6 [facility] 12 :00 (six) l hours as needed for moderate pain .Acute Pain. traMADol 50mg Q6H Take 50 mg [facility] (ULTRAM) 50 7-05 07-[address] mg tablet 17:22: 00:00 every 6 [facility] 12 :00 (six) l hours as needed for moderate pain .Acute Pain. traMADol 50mg Q6H Take 50 mg [facility] (ULTRAM) 50 7-05 07-[address] mg tablet 17:22: 00:00 every 6 [facility] 12 :00 (six) l hours as needed for moderate pain .Acute Pain. traMADol 50mg Q6H Take 50 mg [facility] (ULTRAM) 50 7-05 07-[address] mg tablet 17:22: 00:00 every 6 [facility] 12 :00 (six) l hours as needed for moderate pain .Acute Pain. traMADol 50mg Q6H Take 50 mg [facility] (ULTRAM) 50 7-05 07-[address] mg tablet 17:22: 00:00 every 6 [facility] 12 :00 (six) l hours as needed for moderate pain .Acute Pain. traMADol 50mg Q6H Take 50 mg [facility] (ULTRAM) 50 7-05 07-[address] mg tablet 17:22: 00:00 every 6 [facility] 12 :00 (six) l hours as needed for moderate pain .Acute Pain. traMADol 50mg Q6H Take 50 mg [facility] (ULTRAM) 50 7-05 07-[address] mg tablet 17:22: 00:00 every 6 [facility] 12 :00 (six) l hours as needed for moderate pain .Acute Pain. traMADol 50mg Q6H Take 50 mg [facility] (ULTRAM) 50 7-05 07-[address] mg tablet 17:22: 00:00 every 6 [facility] 12 :00 (six) l hours as needed for moderate pain .Acute Pain. traMADol No 50mg Q6H Take 50 mg [facility] (ULTRAM) 50 7-05 07-[address] mg tablet 17:22: 00:00 every 6 [facility] 12 :00 (six) l hours as needed for moderate pain .Acute Pain. traMADol 28 50mg Q6H Take 50 mg [facility] (ULTRAM) 50 7-05 07-[address] mg tablet 17:22: 00:00 every 6 [facility] 12 :00 (six) l hours as needed for moderate pain .Acute Pain. traMADol 28 50mg Q6H Take 50 mg [facility] (ULTRAM) 50 7-05 07-[address] mg tablet 17:: 00:00 every 6 [facility] 12 :00 (six) l hours as needed for moderate pain .[place]ute [place]. [place] [id number] 50mg Q6H Take 50 mg [facility] (ULTRAM) 50 7-05 07-[address] mg tablet 17:: 00:00 every 6 [facility] 12 :00 (six) l hours as needed for moderate pain .[place] [id number] 50mg Q6H Take 50 mg [facility] (ULTRAM) 50 7-05 07-[address] mg tablet 17:22: 00:00 every 6 [facility] 12 :00 (six) l hours as needed for moderate pain .[place]ute [place] [id number] 50mg Q6H Take 50 mg [facility] (ULTRAM) 50 7-05 07-[address] mg tablet 17:22: 00:00 every 6 [facility] 12 :00 (six) l hours as needed for moderate pain .[place] [id number] 50mg Q6H Take 50 mg [facility] (ULTRAM) 50 7-05 07-[address] mg tablet 17:22: 00:00 every 6 [facility] 12 :00 (six) l hours as needed for moderate pain .Acute Pain. traMADol 2021- [place] [id number] 50mg Q6H Take 50 mg [facility] (ULTRAM) 50 7-05 07-[address] mg tablet 17:22: 00:00 every 6 [facility] 12 :00 (six) l hours as needed for moderate pain .Acute Pain. [place]ol 2021-2021- [place] [id number] 50mg Q6H Take 50 mg [facility] (ULTRAM) 50 7-05 07-[address] mg tablet 17:22: 00:00 every 6 [facility] 12 :00 (six) l hours as needed for moderate pain .Acute Pain. [place] 2021-2021- [place] [id number] 50mg Q6H Take 50 mg [facility] (ULTRAM) 50 7-05 07-[address] mg tablet 17:22: 00:00 every 6 [facility] 12 :00 (six) l hours as needed for moderate pain .Acute Pain. ondansetron 2021-0 2021- No Take by [facility] (ZOFRAN) 8 7- 07-[address] MG tablet 17:21: 00:00 [facility]osp[facility] 55 :00 l ondansetron 2-0 2021- No Take by [facility] (ZOFRAN) 8 7-05 07-[address] MG tablet 17:21: 00:00 [facility]ospita 55 :00 l ondansetron 2022-0 2- No Take by [facility] (ZOFRAN) 8 7-05 07-[address] MG tablet 17:21: 00:00 [facility]ospita 55 :00 l ondansetron 2022-0 2- No Take by [facility] (ZOFRAN) 8 7-05 07-[address] MG tablet 17:21: 00:00 [facility]ospita 55 :00 l ondansetron 2022-0 2021- No Take by [facility] (ZOFRAN) 8 7-05 07-[address] MG tablet 17:21: 00:00 [facility]osp[facility] 55 :00 l ondansetron 2022-0 2- No Take by [facility] (ZOFRAN) 8 7-05 07-[address] MG tablet 17:21: 00:00 [facility]ospita 55 :00 l ondansetron 2022-0 2022- No Take by [facility] (ZOFRAN) 8 7 07-[address] MG tablet 17:21: 00:00 [facility]osp[facility] 55 :00 l ondansetron 2022-0 2022- No Take by [facility] (ZOFRAN) 8 7 07-[address] MG tablet 17:21: 00:00 [facility]ospita 55 :00 l ondansetron 2022-0 2022- No Take by [facility] (ZOFRAN) 8 7 07-[address] MG tablet 17:21: 00:00 [facility]osp[facility] 55 :00 l ondansetron 2022-0 2022- No Take by [facility] (ZOFRAN) 8 09-21 07-[address] MG tablet 17:21: 00:00 [facility]osp[facility] 55 :00 l ondansetron 2022-0 2022- No Take by [facility] (ZOFRAN) 8 09-21 07-[address] MG tablet 17:21: 00:00 [facility]osp[facility] 55 :00 l ondansetron 2022-0 2022- No Take by [facility] (ZOFRAN) 8 09-21 07-[address] MG tablet 17:21: 00:00 [facility]osp[facility] 55 :00 l ondansetron 2022-0 2022- No Take by [facility] (ZOFRAN) 8 09-21 07-[address] MG tablet 17:21: 00:00 [facility]osp[facility] 55 :00 l ondansetron 2022-0 2022- No Take by [facility] (ZOFRAN) 8 09-21 07-[address] MG tablet 17:21: 00:00 [facility] 55 :00 l ondansetron 2022-0 2022- No Take by [facility] (ZOFRAN) 8 7 07-[address] MG tablet 17:21: 00:00 [facility] 55 :00 l ondansetron 2022-0 2022- No Take by [facility] (ZOFRAN) 8 7 07-[address] MG tablet 17:21: 00:00 [facility]osp[facility] 55 :00 l ondansetron 2022-0 2022- No Take by [facility] (ZOFRAN) 8 7 07- mouth. st MG tablet 17:21: 00:00 [facility]osp[facility] 55 :00 l ondansetron 2021- No Take by Me [facility] (ZOFRAN) 8 09-21- mouth. st MG tablet 17:21: 00:00 [facility]osp[facility] 55 :00 l ondansetron 2021- No Take by [facility] (ZOFRAN) 8 09-[address] MG tablet 17:21: 00:00 [facility]osp[facility] 55 :00 l leuprolide 2021- No Lupron [facility] (LUPRON 09-[address] DEPOT, 3 17:21: 00:00 11.25 mg [facility] MONTH,) 32 :00 (3 month) l 11.25 mg intramuscu injection lar syringe kit ONCE A MONTH leuprolide 2021- No Lupron [facility] (LUPRON 09-[address] DEPOT, 3 17:21: 00:00 11.25 mg [facility] MONTH,) 32 :00 (3 month) l 11.25 mg intramuscu injection lar syringe kit ONCE A MONTH leuprolide 2021- No Lupron [facility] (LUPRON 09-[address] DEPOT, 3 17:21: 00:00 11.25 mg [facility] MONTH,) 32 :00 (3 month) l 11.25 mg intramuscu injection lar syringe kit ONCE A MONTH leuprolide 2021- No Lupron [facility] (LUPRON 09-[address] DEPOT, 3 17:21: 00:00 11.25 mg [facility] MONTH,) 32 :00 (3 month) l 11.25 mg intramuscu injection lar syringe kit ONCE A MONTH leuprolide 2021- No Lupron [facility] (LUPRON 09-[address] DEPOT, 3 17:21: 00:00 11.25 mg [facility] MONTH,) 32 :00 (3 month) l 11.25 mg intramuscu injection lar syringe kit ONCE A MONTH leuprolide 2021- No Lupron [facility] (LUPRON 09-[address] DEPOT, 3 17:21: 00:00 11.25 mg [facility] MONTH,) 32 :00 (3 month) l 11.25 mg intramuscu injection lar syringe kit ONCE A MONTH leuprolide 2021- No Lupron [facility] (LUPRON 7-09-[address] DEPOT, 3 17:21: 00:00 11.25 mg [facility] MONTH,) 32 :00 (3 month) l 11.25 mg intramuscu injection lar syringe kit ONCE A MONTH leuprolide 2021- No Lupron [facility] (LUPRON -09-[address] DEPOT, 3 17:21: 00:00 11.25 mg [facility] MONTH,) 32 :00 (3 month) l 11.25 mg intramuscu injection lar syringe kit ONCE A MONTH leuprolide 2021- No Lupron [facility] (LUPRON 09-[address] DEPOT, 3 17:21: 00:00 11.25 mg [facility] MONTH,) 32 :00 (3 month) l 11.25 mg intramuscu injection lar syringe kit ONCE A MONTH leuprolide 2021- No Lupron [facility] (LUPRON -09-[address] DEPOT, 3 17:21: 00:00 11.25 mg [facility] MONTH,) 32 :00 (3 month) l 11.25 mg intramuscu injection lar syringe kit ONCE A MONTH leuprolide 2021- No Lupron [facility] (LUPRON 09-[address] DEPOT, 3 17:21: 00:00 11.25 mg [facility] MONTH,) 32 :00 (3 month) l 11.25 mg intramuscu injection lar syringe kit ONCE A MONTH leuprolide 2021- No Lupron [facility] (LUPRON 09-[address] DEPOT, 3 17:21: 00:00 11.25 mg [facility] MONTH,) 32 :00 (3 month) l 11.25 mg intramuscu injection lar syringe kit ONCE A MONTH leuprolide 2021- No Lupron [facility] (LUPRON 7-09-[address] DEPOT, 3 17:21: 00:00 11.25 mg [facility] MONTH,) 32 :00 (3 month) l 11.25 mg intramuscu injection lar syringe kit ONCE A MONTH leuprolide 2021- No Lupron [facility] (LUPRON 09-[address] DEPOT, 3 17:21: 00:00 11.25 mg [facility] MONTH,) 32 :00 (3 month) l 11.25 mg intramuscu injection lar syringe kit ONCE A MONTH leuprolide 2021- No Lupron [facility] (LUPRON 09-[address] DEPOT, 3 17:21: 00:00 11.25 mg [facility] MONTH,) 32 :00 (3 month) l 11.25 mg intramuscu injection lar syringe kit ONCE A MONTH leuprolide 2021- No Lupron Meth [facility] (LUPRON 09-[address] DEPOT, 3 17:21: 00:00 11.25 mg [facility] MONTH,) 32 :00 (3 month) l 11.25 mg intramuscu injection lar syringe kit ONCE A MONTH leuprolide 2021- No Lupron Meth [facility] (LUPRON 09-[address] DEPOT, 3 17:21: 00:00 11.25 mg [facility] MONTH,) 32 :00 (3 month) l 11.25 mg intramuscu injection lar syringe kit ONCE A MONTH leuprolide 2021- No Lupron Meth [facility] (LUPRON 09-[address] DEPOT, 3 17:21: 00:00 11.25 mg [facility] MONTH,) 32 :00 (3 month) l 11.25 mg intramuscu injection lar syringe kit ONCE A MONTH leuprolide 2021- No Lupron Meth [facility] (LUPRON 09-[address] DEPOT, 3 17:21: 00:00 11.25 mg [facility] MONTH,) 32 :00 (3 month) l 11.25 mg intramuscu injection lar syringe kit ONCE A MONTH isosorbide 2021- No 30mg QD Take 30 mg [facility] mononitrate 09-[address] (IMDUR) 30 17:21: 00:00 daily. [facility] MG 24 hr 24 :00 l tablet isosorbide 2022-0 2022- No 30mg QD Take 30 mg [facility] mononitrate 7-05 07-[address] (IMDUR) 30 17:21: 00:00 daily. [facility] MG 24 hr 24 :00 l tablet isosorbide 2022-0 2022- No 30mg QD Take 30 mg [facility] mononitrate 7-05 07-[address] (IMDUR) 30 17:21: 00:00 daily. [facility] MG 24 hr 24 :00 l tablet isosorbide 2022-0 2022- No 30mg QD Take 30 mg [facility] mononitrate 7-05 07-[address] (IMDUR) 30 17:21: 00:00 daily. [facility] MG 24 hr 24 :00 l tablet isosorbide 2022-0 2022- No 30mg QD Take 30 mg [facility] mononitrate 7-05 07-[address] (IMDUR) 30 17:21: 00:00 daily. [facility] MG 24 hr 24 :00 l tablet isosorbide 2022-0 2022- No 30mg QD Take 30 mg [facility] mononitrate 7-05 07-[address] (IMDUR) 30 17:21: 00:00 daily. [facility] MG 24 hr 24 :00 l tablet isosorbide 2022-0 2022- No 30mg QD Take 30 mg [facility] mononitrate 7-05 07-[address] (IMDUR) 30 17:21: 00:00 daily. [facility] MG 24 hr 24 :00 l tablet isosorbide 2022-0 2022- No 30mg QD Take 30 mg [facility] mononitrate 7-05 07-[address] (IMDUR) 30 17:21: 00:00 daily. [facility] MG 24 hr 24 :00 l tablet isosorbide 2022-0 2022- No 30mg QD Take 30 mg [facility] mononitrate 7-05 07-[address] (IMDUR) 30 17:21: 00:00 daily. [facility] MG 24 hr 24 :00 l tablet isosorbide 2022-0 2022- No 30mg QD Take 30 mg [facility] mononitrate 7-05 07-[address] (IMDUR) 30 17:21: 00:00 daily. [facility] MG 24 hr 24 :00 l tablet isosorbide 2022-0 2022- No 30mg QD Take 30 mg [facility] mononitrate 7-05 07-[address] (IMDUR) 30 17:21: 00:00 daily. [facility] MG 24 hr 24 :00 l tablet isosorbide 2022-0 2022- No 30mg QD Take 30 mg [facility] mononitrate 7-05 07-[address] (IMDUR) 30 17:21: 00:00 daily. [facility] MG 24 hr 24 :00 l tablet isosorbide 2022-0 2022- No 30mg QD Take 30 mg [facility] mononitrate 7-05 07-[address] (IMDUR) 30 17:21: 00:00 daily. [facility] MG 24 hr 24 :00 l tablet isosorbide 2022-0 2022- No 30mg QD Take 30 mg [facility] mononitrate 7-05 07-[address] (IMDUR) 30 17:21: 00:00 daily. [facility] MG 24 hr 24 :00 l tablet isosorbide 2022-0 2022- No 30mg QD Take 30 mg [facility] mononitrate 7-05 07-[address] (IMDUR) 30 17:21: 00:00 daily. [facility] MG 24 hr 24 :00 l tablet isosorbide 2022-0 2022- No 30mg QD Take 30 mg [facility] mononitrate 7-05 07-[address] (IMDUR) 30 17:21: 00:00 daily. [facility] MG 24 hr 24 :00 l tablet isosorbide 2022-0 2022- No 30mg QD Take 30 mg [facility] mononitrate 7-05 07-[address] (IMDUR) 30 17:21: 00:00 daily. [facility] MG 24 hr 24 :00 l tablet isosorbide 2022-0 2022- No 30mg QD Take 30 mg [facility] mononitrate 7-05 07-[address] (IMDUR) 30 17:21: 00:00 daily. [facility] MG 24 hr 24 :00 l tablet isosorbide 2022-0 2022- No 30mg QD Take 30 mg [facility] mononitrate 7-05 07-[address] (IMDUR) 30 17:21: 00:00 daily. [facility] MG 24 hr 24 :00 l tablet gabapentin 2021-0 2022- No 600mg QD Take 600 [facility] (NEURONTIN) 7-05 07-[address] 600 mg 17:21: 00:00 [facility] :00 nightly. l gabapentin 2-0 2022- No 600mg QD Take 600 [facility] (NEURONTIN) 7-05 07-[address] 600 mg 17:21: 00:00 [facility] 17 :00 nightly. l gabapentin 2-0 2022- No 600mg QD Take 600 [facility] (NEURONTIN) 7-05 07-[address] 600 mg 17:21: 00:00 [facility] 17 :00 nightly. l gabapentin 2-0 2022- No 600mg QD Take 600 [facility] (NEURONTIN) 7-05 07-[address] 600 mg 17:21: 00:00 [facility] 17 :00 nightly. l gabapentin 2021-0 2022- No 600mg QD Take 600 [facility] (NEURONTIN) 7-05 07-[address] 600 mg 17:21: 00:00 [facility] 17 :00 nightly. l gabapentin 2-0 2022- No 600mg QD Take 600 [facility] (NEURONTIN) 7-05 07-[address] 600 mg 17:21: 00:00 [facility] 17 :00 nightly. l gabapentin 2-0 2022- No 600mg QD Take 600 [facility] (NEURONTIN) 7-05 07-[address] 600 mg 17:21: 00:00 [facility] 17 :00 nightly. l gabapentin 2-0 2022- No 600mg QD Take 600 [facility] (NEURONTIN) 7-05 07-[address] 600 mg 17:21: 00:00 [facility] 17 :00 nightly. l gabapentin 2022-0 2022- No 600mg QD Take 600 [facility] (NEURONTIN) 7-05 07-[address] 600 mg 17:21: 00:00 [facility] 17 :00 nightly. l gabapentin 2022-0 2022- No 600mg QD Take 600 [facility] (NEURONTIN) 7-05 07-[address] 600 mg 17:21: 00:00 [facility] tablet 17 :00 nightly. l gabapentin 2-0 2022- No 600mg QD Take 600 [facility] (NEURONTIN) 7-05 07-[address] 600 mg 17:21: 00:00 [facility] tablet 17 :00 nightly. l gabapentin 2021-0 2022- No 600mg QD Take 600 [facility] (NEURONTIN) 7-05 07-[address] 600 mg 17:21: 00:00 [facility] tablet 17 :00 nightly. l gabapentin 2021-0 2022- No 600mg QD Take 600 [facility] (NEURONTIN) 7-05 07-[address] 600 mg 17:21: 00:00 [facility] tablet 17 :00 nightly. l gabapentin 2021-0 2022- No 600mg QD Take 600 [facility] (NEURONTIN) 7-05 07-[address] 600 mg 17:21: 00:00 [facility] tablet 17 :00 nightly. l gabapentin 2021-0 2022- No 600mg QD Take 600 [facility] (NEURONTIN) 7-05 07-[address] 600 mg 17:21: 00:00 [facility] tablet 17 :00 nightly. l gabapentin 2021-0 2022- No 600mg QD Take 600 [facility] (NEURONTIN) 7-05 07-[address] 600 mg 17:21: 00:00 [facility] tablet 17 :00 nightly. l gabapentin 2021-0 2022- No 600mg QD Take 600 [facility] (NEURONTIN) 7-05 07-[address] 600 mg 17:21: 00:00 [facility] tablet 17 :00 nightly. l gabapentin 2021-0 2022- No 600mg QD Take 600 [facility] (NEURONTIN) 7-05 07-[address] 600 mg 17:21: 00:00 [facility] tablet 17 :00 nightly. l gabapentin 2021-0 2022- No 600mg QD Take 600 [facility] (NEURONTIN) 7-05 07-[address] 600 mg 17:21: 00:00 [facility] tablet 17 :00 nightly. l gabapentin 2021-0 2022- No 300mg Q.5D Take 300 M [facility] (NEURONTIN) 7-05 07-[address] 300 mg 17:21: 00:00 mouth 2 [facility] capsule 07 :00 (two) l times a day. One tab in AM. gabapentin 2-0 2022- No 300mg Q.5D Take 300 M [facility] (NEURONTIN) 7-05 07-[address] 300 mg 17:21: 00:00 mouth [facility] capsule 07 :00 (two) l times a day. One tab in AM. gabapentin 2-0 2022- No 300mg Q.5D Take 300 [facility] (NEURONTIN) 7-05 07-[address] 300 mg 17:21: 00:00 mouth 2 [facility] capsule 07 :00 (two) l times a day. One tab in AM. gabapentin 2021-0 2- No 300mg Q.5D Take 300 M [facility] (NEURONTIN) 7-05 07-[address] 300 mg 17:21: 00:00 mouth 2 [facility] capsule 07 :00 (two) l times a day. One tab in AM. gabapentin 2021-0 2- No 300mg Q.5D Take 300 [facility] (NEURONTIN) 7-05 07-[address] 300 mg 17:21: 00:00 mouth 2 [facility] capsule 07 :00 (two) l times a day. One tab in AM. gabapentin 2021-0 2- No 300mg Q.5D Take 300 M [facility] (NEURONTIN) 7-05 07-[address] 300 mg 17:21: 00:00 mouth 2 [facility] capsule 07 :00 (two) l times a day. One tab in AM. gabapentin 2-0 2022- No 300mg Q.5D Take 300 M [facility] (NEURONTIN) 7-05 07-[address] 300 mg 17:21: 00:00 mouth 2 [facility] capsule 07 :00 (two) l times a day. One tab in AM. gabapentin 2022-0 2022- No 300mg Q.5D Take 300 M [facility] (NEURONTIN) 7-05 07-[address] 300 mg 17:21: 00:00 mouth 2 [facility] capsule 07 :00 (two) l times a day. One tab in AM. gabapentin 2022-0 2022- No 300mg Q.5D Take 300 [facility] (NEURONTIN) 7-05 07-[address] 300 mg 17:21: 00:00 mouth 2 [facility] capsule 07 :00 (two) l times a day. One tab in AM. gabapentin 2-0 2022- No 300mg Q.5D Take 300 [facility] (NEURONTIN) 7-05 07-[address] 300 mg 17:21: 00:00 mouth 2 [facility] capsule 07 :00 (two) l times a day. One tab in AM. gabapentin 2-0 2022- No 300mg Q.5D Take 300 [facility] (NEURONTIN) 7-05 07-[address] 300 mg 17:21: 00:00 mouth 2 [facility] capsule 07 :00 (two) l times a day. One tab in AM. gabapentin 2021-0 2- No 300mg Q.5D Take 300 [facility] (NEURONTIN) 7-05 07-[address] 300 mg 17:21: 00:00 mouth 2 [facility] capsule 07 :00 (two) l times a day. One tab in AM. gabapentin 2021-0 2- No 300mg Q.5D Take 300 [facility] (NEURONTIN) 7-05 07-[address] 300 mg 17:21: 00:00 mouth 2 [facility] capsule 07 :00 (two) l times a day. One tab in AM. gabapentin 2021-0 2- No 300mg Q.5D Take 300 [facility] (NEURONTIN) 7-05 07-[address] 300 mg 17:21: 00:00 mouth 2 [facility] capsule 07 :00 (two) l times a day. One tab in AM. gabapentin 2-0 2022- No 300mg Q.5D Take 300 [facility] (NEURONTIN) 7-05 07-[address] 300 mg 17:21: 00:00 mouth 2 [facility] capsule 07 :00 (two) l times a day. One tab in AM. gabapentin 2022-0 2022- No 300mg Q.5D Take 300 [facility] (NEURONTIN) 7-05 07-[address] 300 mg 17:21: 00:00 mouth 2 [facility] capsule 07 :00 (two) l times a day. One tab in AM. gabapentin 2022-0 2022- No 300mg Q.5D Take 300 M ethodi [...] day. One tab in AM. gabapentin 2021-0 202- No 300mg Q.5D Take 300 [facility] (NEURONTIN) 7- 07-[address] 300 mg 17:21: 00:00 mouth 2 [facility] capsule 07 :00 (two) l times a day. One tab in AM. citalopram 2021-0 202- No 20mg QD Take 20 mg [facility] (CeleXA) 20 09-[address] [facility] tablet 17:20: 00:00 every [facility] a 40 :00 morning. l citalopram 2-0 2022- No 20mg QD Take 20 mg [facility] (CeleXA) 20 09-[address] [facility] tablet 17:20: 00:00 every Hospit a 40 :00 morning. l citalopram 2-0 2- No 20mg QD Take 20 mg [facility] (CeleXA) 20 09-[address] [facility] tablet 17:20: 00:00 every Hospit a 40 :00 morning. l citalopram 2-0 2022- No 20mg QD Take 20 mg [facility] (CeleXA) 20 09-[address] [facility] tablet 17:20: 00:00 every Hospit a 40 :00 morning. l citalopram 2022-0 2022- No 20mg QD Take 20 mg [facility] (CeleXA) 20 09-21-[address] [facility] tablet 17:20: 00:00 every Hospit a 40 :00 morning. l citalopram 2022-0 2022- No 20mg QD Take 20 mg [facility] (CeleXA) 20 09-21-[address] [facility] tablet 17:20: 00:00 every Hospit a 40 :00 morning. l citalopram 2021-0 2022- No 20mg QD Take 20 mg [facility] (CeleXA) 20 09-[address] [facility] tablet 17:20: 00:00 every Hospit a 40 :00 morning. l citalopram 2021- No 20mg QD Take 20 mg [facility] (CeleXA) 20 09-[address] [facility] tablet 17:20: 00:00 every Hospit a 40 :00 morning. l citalopram 2021-2021- No 20mg QD Take 20 mg [facility] (CeleXA) 20 09-[address] [facility] tablet 17:20: 00:00 every Hospit a 40 :00 morning. l citalopram 2021-2021- No 20mg QD Take 20 mg [facility] (CeleXA) 09-[address] [facility] tablet 17:20: 00:00 every Hospit a 40 :00 morning. l citalopram 2021- No 20mg QD Take 20 mg [facility] (CeleXA) 09-[address] [facility] tablet 17:20: 00:00 every Hospit a 40 :00 morning. l citalopram 2021- No 20mg QD Take 20 mg [facility] (CeleXA) 09-[address] [facility] tablet 17:20: 00:00 every Hospit a 40 :00 morning. l citalopram 2021- No 20mg QD Take 20 mg [facility] (CeleXA) 09-[address] [facility] tablet 17:20: 00:00 every Hospit a 40 :00 morning. l citalopram 2021- No 20mg QD Take 20 mg [facility] (CeleXA) 09-[address] [facility] tablet 17:20: 00:00 every Hospit a 40 :00 morning. l citalopram 2021-2021- No 20mg QD Take 20 mg [facility] (CeleXA) 09-[address] [facility] tablet 17:20: 00:00 every Hospit a 40 :00 morning. l citalopram 2021-2021- No 20mg QD Take 20 mg [facility] (CeleXA) 20 09-[address] [facility] tablet 17:20: 00:00 every Hospit a 40 :00 morning. l citalopram 2021- No 20mg QD Take 20 mg [facility] (CeleXA) 20 09-21-[address] [facility] tablet 17:20: 00:00 every Hospit a 40 :00 morning. l citalopram 2021- No 20mg QD Take 20 mg [facility] (CeleXA) 20 09-21- by mouth [facility] tablet 17:20: 00:00 every Hospit a 40 :00 morning. l citalopram 2021- No 20mg QD Take 20 mg [facility] (CeleXA) 09-21- by mouth [facility] tablet 17:20: 00:00 every Hospit a 40 :00 morning. l buPROPion 2021- No 300mg QD Take 300 [facility] XL 7-05 07-[address] (WELLBUTRIN 17:19: 00:00 mouth [facility] XL) 300 MG 41 :00 every l 24 hr morning. tablet buPROPion 2021- No 300mg QD Take 300 [facility] XL 7-05 07-[address] (WELLBUTRIN 17:19: 00:00 [facility] [place] XL) 300 MG 41 :00 every l 24 hr morning. tablet buPROPion 2021- No 300mg QD Take 300 [facility] XL 7-05 07-[address] (WELLBUTRIN 17:19: 00:00 [facility] [place] XL) 300 MG 41 :00 every l 24 hr morning. tablet buPROPion 2021- No 300mg QD Take 300 [facility] XL 7-05 07-[address] (WELLBUTRIN 17:19: 00:00 [facility] [place] XL) 300 MG 41 :00 every l 24 hr morning. tablet buPROPion 2021- No 300mg QD Take 300 [facility] XL 7-05 07-[address] (WELLBUTRIN 17:19: 00:00 [facility] [place] XL) 300 MG 41 :00 every l 24 hr morning. tablet buPROPion 2021- No 300mg QD Take 300 [facility] XL 7-05 07-[address] (WELLBUTRIN 17:19: 00:00 [facility] [place] XL) 300 MG 41 :00 every l 24 hr morning. tablet buPROPion 2021- No 300mg QD Take 300 [facility] XL 7-05 07-[address] (WELLBUTRIN 17:19: 00:00 [facility] [place] XL) 300 MG 41 :00 every l 24 hr morning. tablet buPROPion 2021- No 300mg QD Take 300 [facility] XL 7-05 07-[address] (WELLBUTRIN 17:19: 00:00 [facility] [place] XL) 300 MG 41 :00 every l 24 hr morning. tablet buPROPion 2021- No 300mg QD Take 300 [facility] XL 7-05 07-[address] (WELLBUTRIN 17:19: 00:00 [facility] [place] XL) 300 MG 41 :00 every l 24 hr morning. tablet buPROPion 2021- No 300mg QD Take 300 [facility] XL 7-05 07-[address] (WELLBUTRIN 17:19: 00:00 [facility] [place] XL) 300 MG 41 :00 every l 24 hr morning. tablet buPROPion 2021- No 300mg QD Take 300 [facility] XL 7-05 07-[address] (WELLBUTRIN 17:19: 00:00 [facility] [place] XL) 300 MG 41 :00 every l 24 hr morning. tablet buPROPion 2021- No 300mg QD Take 300 [facility] XL 7-05 07-[address] (WELLBUTRIN 17:19: 00:00 [facility] [place] XL) 300 MG 41 :00 every l 24 hr morning. tablet buPROPion 2021-2021- No 300mg QD Take 300 [facility] XL 7-05 07-[address] (WELLBUTRIN 17:19: 00:00 [facility] [place] XL) 300 MG 41 :00 every l 24 hr morning. tablet buPROPion 2021- No 300mg QD Take 300 [facility] XL 7-05 07-[address] (WELLBUTRIN 17:19: 00:00 [facility] [place] XL) 300 MG 41 :00 every l 24 hr morning. tablet buPROPion 2021- No 300mg QD Take 300 [facility] XL 7-05 07-[address] (WELLBUTRIN 17:19: 00:00 [facility] [place] XL) 300 MG 41 :00 every l 24 hr morning. tablet buPROPion 2021- No 300mg QD Take 300 [facility] XL 7-05 07-[address] (WELLBUTRIN 17:19: 00:00 [facility] [place] XL) 300 MG 41 :00 every l 24 hr morning. tablet buPROPion 2021- No 300mg QD Take 300 [facility] XL 7-05 07-[address] (WELLBUTRIN 17:19: 00:00 [facility] [place] XL) 300 MG 41 :00 every l 24 hr morning. tablet buPROPion No 300mg QD Take 300 [facility] XL 7-05 07-[address] (WELLBUTRIN 17:19: 00:00 [facility] [place] XL) 300 MG 41 :00 every l 24 hr morning. tablet buPROPion No 300mg QD Take 300 [facility] XL 7-05 07-[address] (WELLBUTRIN 17:19: 00:00 [...] 2020- No TAKE 3 [facility] evodopa 5- 12-[address] (SINEMET) 00:00: 00:00 MOUTH Hospit a 25-100 mg 00 :00 THREE l per tablet TIMES DAILY carbidopa-l 2020-0 2020- No TAKE 3 [facility] evodopa 5- 12-[address] (SINEMET) 00:00: 00:00 MOUTH Hospit a 25-100 mg 00 :00 THREE l per tablet TIMES DAILY carbidopa-l 2020-0 2020- No TAKE 3 [facility] evodopa 5- 12-[address] (SINEMET) 00:00: 00:00 MOUTH Hospit a 25-100 mg 00 :00 THREE l per tablet TIMES DAILY carbidopa-l 2020-0 2020- No TAKE 3 [facility] evodopa 5- 12-[address] (SINEMET) 00:00: 00:00 MOUTH Hospit a 25-100 mg 00 :00 THREE l per tablet TIMES DAILY simvastatin Yes 40mg 40 mg, Univ ers (ZOCOR) 3-21 Oral, QHS, ity of tablet 40 02:00: [place] mg 00 on [facility] Medical 06/06/20 at Branch 2100, Until Discontinu ed, Routine empaglifloz Yes 1{tbl} Take 1 Un [place] in-linaglip 3-20 tablet by ity of tin 19:26: mouth [place] (GLYXAMBI) 49 daily. Medical 25-5 mg Tab Branch clopidogreL 0 Yes 75mg Take 75 mg Univers 75 mg 3-20 by mouth ity of tablet 19:26: daily. [place] [address] Medical Branch gabapentin 2020-0 Yes 300mg Take 300 Un [place] 300 mg 3-20 mg by ity of capsule 19:26: mouth 3 [place] 49 (three) Medical times Branch daily. isosorbide 0 Yes 30mg Take 30 mg U nivers mononitrate 3-20 by mouth. ity of 30 mg 24 hr 19:26: [place] [facility] 49 Medical Branch simvastatin Yes Take by Uni vers 80 mg 3-20 mouth at ity of tablet 19:26: bedtime. [place] [address] Medical Branch carbidopa-l 0 Yes 3{tbl} Take 3 Un [place] evodopa 3-20 tablets by ity of 25-100 mg 19:26: mouth 3 [place] tablet 49 (three) Medical times Branch daily. predniSONE 0 Yes 50mg Take 50 mg U nivers 50 mg 3-20 by mouth ity of tablet 19:26: daily. [place] [address] Medical Branch vilazodone [address] [facility] ers (VIIBRYD) 3-20 mouth. ity of 10 mg Tab 19:26: [place] [address] Medical Branch eszopiclone 0 Yes 3mg Take 3 mg U nivers 3 mg tablet 3-20 by mouth ity of 19:26: at [place] [address] bedtime. Medical Branch melatonin 0 Yes Take by [facility] rs 10 mg Tab 3-20 mouth. ity of 19:26: [address] Branch empaglifloz Yes 1{tbl} Take 1 Un [place] in-linaglip 3-20 tablet by ity of tin 19:26: mouth [place] (GLYXAMBI) daily. Medical 25-5 mg Tab Branch clopidogreL 0 Yes 75mg Take 75 mg Univers 75 mg 3-20 by mouth ity of tablet 19:26: daily. [place] [address] Medical Branch gabapentin 0 Yes 300mg Take 300 Un [place] 300 mg 3-20 mg by ity of capsule 19:26: mouth 3 [place] 49 (three) Medical times Branch daily. isosorbide 0 Yes 30mg Take 30 mg U nivers mononitrate 3-20 by mouth. ity of 30 mg 24 hr 19:26: [place] [address] Medical Branch simvastatin 0 Yes Take by Uni vers 80 mg 3-20 mouth at ity of tablet 19:26: bedtime. [place] [address] Medical Branch carbidopa-l 0 Yes 3{tbl} Take 3 Un [place] evodopa 3-20 tablets by ity of 25-100 mg 19:26: mouth 3 [place] tablet 49 (three) Medical times Branch daily. predniSONE 0 Yes 50mg Take 50 mg U nivers 50 mg 3-20 by mouth ity of tablet 19:26: daily. [place] [address] Medical Branch vilazodone 2021-0 Yes Take by Univ ers (VIIBRYD) 3-20 mouth. ity of 10 mg Tab 19:26: [place] [address] Medical Branch eszopiclone Yes 3mg Take 3 mg U nivers 3 mg tablet 3-20 by mouth ity of 19:26: at [place] [address] bedtime. Medical Branch melatonin Yes Take by Unive rs 10 mg Tab 3-20 mouth. ity of 19:26: [place] [address] Medical Branch empaglifloz Yes 1{tbl} Take 1 Un [place] in-linaglip 3-20 tablet by ity of tin 19:26: mouth [place] (GLYXAMBI) 49 daily. Medical 25-5 mg Tab Branch clopidogreL 0 Yes 75mg Take 75 mg Univers 75 mg 3-20 by mouth ity of tablet 19:26: daily. [place] [address] Medical Branch gabapentin Yes 300mg Take 300 Un [place] 300 mg 3-20 mg by ity of capsule 19:26: mouth 3 [place] [address] (three) Medical times Branch daily. isosorbide Yes 30mg Take 30 mg U nivers mononitrate 3-20 by mouth. ity of 30 mg 24 hr 19:26: [place] [address] Medical Branch simvastatin Yes Take by Uni vers 80 mg 3-20 mouth at ity of tablet 19:26: bedtime. [place] [address] Medical Branch carbidopa-l Yes 3{tbl} Take 3 Un [place] evodopa 3-20 tablets by ity of 25-100 mg 19:26: mouth 3 [place] tablet 49 (three) Medical times Branch daily. predniSONE Yes 50mg Take 50 mg U nivers 50 mg 3-20 by mouth ity of tablet 19:26: daily. [place] [address] Medical Branch vilazodone Yes Take by Univ ers (VIIBRYD) 3-20 mouth. ity of 10 mg Tab 19:26: [place] [address] Medical Branch eszopiclone Yes 3mg Take 3 mg U nivers 3 mg tablet 3-20 by mouth ity of 19:26: at [place] [address] bedtime. Medical Branch melatonin Yes Take by Unive rs 10 mg Tab 3-20 mouth. ity of 19:26: [place] [address] Medical Branch empaglifloz Yes 1{tbl} Take 1 Un [place] in-linaglip 3-20 tablet by ity of tin 19:26: mouth [place] (GLYXAMBI) daily. Medical 25-5 mg Tab Branch clopidogreL 0 Yes 75mg Take 75 mg Univers 75 mg 3-20 by mouth ity of tablet 19:26: daily. [place] [address] Medical Branch gabapentin 0 Yes 300mg Take 300 Un [place] 300 mg 3-20 mg by ity of capsule 19:26: mouth 3 [place] [address] (three) Medical times Branch daily. isosorbide 0 Yes 30mg Take 30 mg U nivers mononitrate 3-20 by mouth. ity of 30 mg 24 hr 19:26: [place] [address] Medical Branch simvastatin 0 Yes Take by Uni vers 80 mg 3-20 mouth at ity of tablet 19:26: bedtime. [place] [address] Medical Branch carbidopa-l 0 Yes 3{tbl} Take 3 Un [place] evodopa 3-20 tablets by ity of 25-100 mg 19:26: mouth 3 [place] tablet 49 (three) Medical times Branch daily. predniSONE 0 Yes 50mg Take 50 mg U nivers 50 mg 3-20 by mouth ity of tablet 19:26: daily. [place] [address] Medical Branch vilazodone 0 Yes Take by Univ ers (VIIBRYD) 3-20 mouth. ity of 10 mg Tab 19:26: [address] Branch eszopiclone Yes 3mg Take 3 mg U nivers 3 mg tablet 3-20 by mouth ity of 19:26: at [place] [address] bedtime. Medical Branch melatonin 0 Yes Take by Unive rs 10 mg Tab 3-20 mouth. ity of 19:26: [place] [address] Medical Branch olmesartan 2020-0 2020- No 20mg Take 20 mg Univers 20 mg 3-20 03-20 by mouth. ity of tablet 17:28: 00:00 [place] 53 :00 Medical Branch predniSONE 2020-0 Yes 50mg 50 mg, Unive rs (DELTASONE) 3-20 Oral, ity of tablet 50 14:00: DAILY, [place] mg 00 First dose Medical on Sat Branch 06/06/20 at 0900, Until Discontinu ed, Routine isosorbide 2021-0 Yes 30mg 30 mg, Unive rs mononitrate 3-20 Oral, ity of (IMDUR) 24 14:00: DAILY, [place] hr tablet 00 First dose Medi tony 30 mg on [facility] Branch 06/06/20 at 0900, Until Discontinu ed, Routine clopidogreL 2020-0 Yes 75mg 75 mg, Univ ers (PLAVIX) 3-20 Oral, ity of tablet 75 14:00: DAILY, [place] mg 00 First dose Medical on [facility] Branch 06/06/20 at 0900, Until Discontinu ed, Routine ergocalcife 2020-0 Yes [id number] 50,000 Un [place] rol 3-20 Units, ity of (vitamin 14:00: Oral, [place] d2) 00 QWEEKLY, Medical (CALCIFEROL First dose Br anch ) capsule on [facility] 50,000 06/06/20 at Units 0900, Until Discontinu ed, Routine carbidopa-l 2020-0 Yes 2{tbl} 2 tablet, Univers evodopa 3-20 Oral, TID, ity of (SINEMET-25 13:00: First dose [place] /100) 00 on [facility] Medical 25-100 mg 06/06/20 at Bran ch tablet 2 0800, tablet Until Discontinu ed, Routine gabapentin 2020-0 Yes 300mg 300 mg, Uni vers (NEURONTIN) 3-20 Oral, TID, it y of capsule 300 13:00: First dose [place] mg 00 on [facility] Medical 06/06/20 at Branch 0800, Until Discontinu ed, Routine zinc 2020-0 Yes 220mg 220 mg, Univers sulfate 3-20 Oral, TID, ity of (ORAZINC) 13:00: First dose [place] capsule 220 00 on [facility] Medica l mg 06/06/20 at Branch 0800, Until Discontinu ed, Routine ascorbic 202-0 Yes 500mg 500 mg, Unive rs acid 3-20 Oral, BID, ity of (vitamin C) 13:00: First dose [place] (VITAMIN C) 00 on [facility] Medica l tablet 500 06/06/20 at [facility] mg 0800, Until Discontinu ed, Routine Sliding 2020-0 Yes Subcutaneo Univ ers Scale 3-20 us, AC, ity of Insulin-Reg 12:30: First dose [place] ular + Fsbg 00 on [facility] Medica l Testing 3/20/21 at Branch 0730, Until Discontinu ed, Routine melatonin 0 Yes 9mg 9 mg, Univers (MELATIN) 3-20 [...] IV Push, ity of (PF)) 09:08: Q6HPRN, [place] injection 4 00 Starting Medi tony mg Sat Branch 06/06/20 at 0408, Until Discontinu ed, Routine, Nausea and Vomiting (N/V) traMADoL 2020-0 202- No 50mg 50 mg, Univer s (ULTRAM) 3-20 03-22 Oral, ity of tablet 50 09:07: 09:06 Q8HPRN, [place] mg 55 :55 Starting Medical Sat Branch 06/06/20 at 0407, Until 06/08/20 at 0406, Routine, Pain (scale 4-6) acetaminoph 2020-0 Yes 650mg 650 mg, Un everette en 06-06 Oral, ity of (TYLENOL) 09:07: Q6HPRN, [place] tablet 650 53 Starting Medic al mg Sat Branch 06/06/20 at 0407, Until Discontinu ed, Routine, Pain (scale 1-3) NaCl 0.9% 0 202- No 1000mL at 999 Uni vers (NS) bolus 06-06-20 mL/hr, ity of infusion 05:30: 05:11 1,000 mL, [place] as 1,000 mL 00 :00 IV Medical Piggyback, Branch ONCE, 1 dose, [facility] 06/06/20 at 0030, STAT ascorbic 2020-0 Yes [id number] 500mg Take 1 U nivers acid, 3-20 tablet by ity of vitamin C, 00:00: mouth 2 [place] 500 mg 00 (two) Medical tablet times Branch daily. Cholecalcif 2020-0 Yes [id number] 1000U Take 1 Univers arjun, 3-20 capsule by ity of Vitamin D3, 00:00: mouth [place] 25 mcg 00 daily. Medical (1,000 Branch unit) capsule zinc 2020-0 Yes [id number] 220mg Take 1 Unive rs sulfate 220 3-20 capsule by it y of (50) mg 00:00: mouth 3 [place] capsule 00 (three) Medical times Branch daily. ascorbic 2020-0 Yes [id number] 500mg Take 1 U nivers acid, 3-20 tablet by ity of vitamin C, 00:00: mouth 2 [place] 500 mg 00 (two) Medical tablet times Branch daily. Cholecalcif 2020-0 Yes [id number] 1000U Take 1 [facility] arjun, 3-20 capsule by ity of Vitamin D3, 00:00: mouth [place] 25 mcg 00 daily. Medical (1,000 Branch unit) capsule zinc 2020-0 Yes [id number] 220mg Take 1 Unive rs sulfate 220 3-20 capsule by it y of (50) mg 00:00: mouth 3 [place] capsule 00 (three) Medical times Branch daily. ascorbic 2020-0 Yes [id number] 500mg Take 1 U nivers acid, 3-20 tablet by ity of vitamin C, 00:00: mouth 2 [place] 500 mg 00 (two) Medical tablet times Branch daily. Cholecalcif 2020-0 Yes [id number] 1000U Take 1 Univers arjun, 3-20 capsule by ity of Vitamin D3, 00:00: mouth [place] 25 mcg 00 daily. Medical (1,000 Branch unit) capsule zinc 2020-0 Yes [id number] 220mg Take 1 Unive rs sulfate 220 3-20 capsule by it y of (50) mg 00:00: mouth 3 [place] capsule 00 (three) Medical times Branch daily. ascorbic 2020-0 Yes [id number] 500mg Take 1 U nivers acid, 3-20 tablet by ity of vitamin C, 00:00: mouth 2 [place] 500 mg 00 (two) Medical tablet times Branch daily. Cholecalcif 0 Yes [id number] 1000U Take 1 [facility] arjun, 3-20 capsule by ity of Vitamin D3, 00:00: mouth [place] 25 mcg 00 daily. Medical (1,000 Branch unit) capsule zinc 2020-0 Yes [id number] 220mg Take 1 Unive rs sulfate 220 3-20 capsule by it y of (50) mg 00:00: mouth 3 [place] capsule 00 (three) Medical times Branch daily. acetaminoph 2021- No [id number] 650mg Take 2 Univers en 325 mg 3-20 03-21 tablets by ity of tablet 00:00: 04:59 mouth [place] 00 :00 every 6 Medical (six) Branch hours as needed for Pain (scale 1-3) or Temp > 38.5 C. acetaminoph 2021- No [id number] 650mg Take 2 Univers en 325 mg 3-20 03-21 tablets by ity of tablet 00:00: 04:59 mouth [place] 00 :00 every 6 Medical (six) Branch hours as needed for Pain (scale 1-3) or Temp > 38.5 C. acetaminoph 2021- No [id number] 650mg Take 2 Univers en 325 mg 3-20 03-21 tablets by ity of tablet 00:00: 04:59 mouth [place] 00 :00 every 6 Medical (six) Branch hours as needed for Pain (scale 1-3) or Temp > 38.5 C. acetaminoph 2021- No [id number] 650mg Take 2 Univers en 325 mg 3-20 03-21 tablets by ity of tablet 00:00: 04:59 mouth [place] 00 :00 every 6 Medical (six) Branch hours as needed for Pain (scale 1-3) or Temp > 38.5 C. ondansetron 2019-03 Yes Take by [facility] (REBECCA) 8 2-[address] MG tablet 13:55: Hospita 46 l ondansetron 2019-03 Yes Take by Met [facility] (REBECCA) 8 2-[address] MG tablet 13:55: Hospita 46 l Ozempic 2019-03 Yes INJECT Methodi 0.25 mg or 2-[address] 0.5 mg(2 00:00: UNDER THE [facility]osp [place] mg/1.5 mL) 00 SKIN EVERY l pen WEEK FOR 4 injector WEEKS THEN 0.5MG EVERY WEEK FOR 4 WEEKS Ozic 2019-03 Yes INJECT Methodi 0.25 mg or 2-[address] 0.5 mg(2 00:00: UNDER THE [facility]osp [place] mg/1.5 mL) 00 SKIN EVERY l pen WEEK FOR 4 injector WEEKS THEN 0.5MG EVERY WEEK FOR 4 WEEKS Ozempic 2019-03- No INJECT [facility]i 0.25 mg or 2-01 07-[address] 0.5 mg(2 00:00: 00:00 UNDER THE Hos efren mg/1.5 mL) 00 :00 SKIN EVERY l pen WEEK FOR 4 injector WEEKS THEN 0.5MG EVERY WEEK FOR 4 WEEKS Ozempic 2019-03- No INJECT [facility]i 0.25 mg or 2-01 07-[address] 0.5 mg(2 00:00: 00:00 UNDER THE Hos efren mg/1.5 mL) 00 :00 SKIN EVERY l pen WEEK FOR 4 injector WEEKS THEN 0.5MG EVERY WEEK FOR 4 WEEKS Ozempic 2019-03- No INJECT [facility] 0.25 mg or 2-01 07-[address] 0.5 mg(2 00:00: 00:00 UNDER THE Hos efren mg/1.5 mL) 00 :00 SKIN EVERY l pen WEEK FOR 4 injector WEEKS THEN 0.5MG EVERY WEEK FOR 4 WEEKS Oz2019-03- No INJECT Methodi 0.25 mg or 2-01 07-[address] 0.5 mg(2 00:00: 00:00 UNDER THE Hos efren mg/1.5 mL) 00 :00 SKIN EVERY l pen WEEK FOR 4 injector WEEKS THEN 0.5MG EVERY WEEK FOR 4 WEEKS Oz2019-03- No INJECT Methodi 0.25 mg or 2- 07-[address] 0.5 mg(2 00:00: 00:00 UNDER THE Hos efren mg/1.5 mL) 00 :00 SKIN EVERY l pen WEEK FOR 4 injector WEEKS THEN 0.5MG EVERY WEEK FOR 4 WEEKS Oz2019-03- No INJECT Methodi 0.25 mg or 2- 07-[address] 0.5 mg(2 00:00: 00:00 UNDER THE Hos efren mg/1.5 mL) 00 :00 SKIN EVERY l pen WEEK FOR 4 injector WEEKS THEN 0.5MG EVERY WEEK FOR 4 WEEKS Oz2019-03- No INJECT Methodi 0.25 mg or 2- 07-[address] 0.5 mg(2 00:00: 00:00 UNDER THE Hos efren mg/1.5 mL) 00 :00 SKIN EVERY l pen WEEK FOR 4 injector WEEKS THEN 0.5MG EVERY WEEK FOR 4 WEEKS Oz2019-03- No INJECT Methodi 0.25 mg or 2- 07-[address] 0.5 mg(2 00:00: 00:00 UNDER THE Hos efren mg/1.5 mL) 00 :00 SKIN EVERY l pen WEEK FOR 4 injector WEEKS THEN 0.5MG EVERY WEEK FOR 4 WEEKS Oz2019-03- No INJECT [facility] 0.25 mg or 2- 07-[address] 0.5 mg(2 00:00: 00:00 UNDER THE Hos efren mg/1.5 mL) 00 :00 SKIN EVERY l pen WEEK FOR 4 injector WEEKS THEN 0.5MG EVERY WEEK FOR 4 WEEKS Oz2019-03- No INJECT [facility] 0.25 mg or 2-01 07-[address] 0.5 mg(2 00:00: 00:00 UNDER THE Hos efren mg/1.5 mL) 00 :00 SKIN EVERY l pen WEEK FOR 4 injector WEEKS THEN 0.5MG EVERY WEEK FOR 4 WEEKS Oz2019-03- No INJECT [facility] 0.25 mg or 2- 07-[address] 0.5 mg(2 00:00: 00:00 UNDER THE Hos efren mg/1.5 mL) 00 :00 SKIN EVERY l pen WEEK FOR 4 injector WEEKS THEN 0.5MG EVERY WEEK FOR 4 WEEKS Oz2019-03- No INJECT [facility] 0.25 mg or 2- 07-[address] 0.5 mg(2 00:00: 00:00 UNDER THE Hos efren mg/1.5 mL) 00 :00 SKIN EVERY l pen WEEK FOR 4 injector WEEKS THEN 0.5MG EVERY WEEK FOR 4 WEEKS Oz2019-03- No INJECT [facility] 0.25 mg or 2- 07-[address] 0.5 mg(2 00:00: 00:00 UNDER THE Hos efren mg/1.5 mL) 00 :00 SKIN EVERY l pen WEEK FOR 4 injector WEEKS THEN 0.5MG EVERY WEEK FOR 4 WEEKS Oz2019-03- No INJECT [facility] 0.25 mg or 2- 07-[address] 0.5 mg(2 00:00: 00:00 UNDER THE Hos efren mg/1.5 mL) 00 :00 SKIN EVERY l pen WEEK FOR 4 injector WEEKS THEN 0.5MG EVERY WEEK FOR 4 WEEKS Oz2019-03- No INJECT [facility] 0.25 mg or 2-01 07-[address] 0.5 mg(2 00:00: 00:00 UNDER THE Hos efren mg/1.5 mL) 00 :00 SKIN EVERY l pen WEEK FOR 4 injector WEEKS THEN 0.5MG EVERY WEEK FOR 4 WEEKS Oz2019-03- No INJECT [facility] 0.25 mg or 2-01 07-[address] 0.5 mg(2 00:00: 00:00 UNDER THE Hos efren mg/1.5 mL) 00 :00 SKIN EVERY l pen WEEK FOR 4 injector WEEKS THEN [facility] 0.25 mg or 04-[address] 0.5 mg(2 00:00: 00:00 UNDER THE Hos efren mg/1.5 mL) 00 :00 SKIN EVERY l pen WEEK FOR 4 injector WEEKS THEN 0.5MG EVERY WEEK FOR 4 WEEKS Oz 2019-03- No INJECT [facility] 0.25 mg or 04-[address] 0[address] 0.5 mg(2 00:00: 00:00 UNDER THE Hos efren mg/1.5 mL) 00 :00 SKIN EVERY l pen WEEK FOR 4 injector WEEKS THEN 0.5[facility] INJECT [facility] 0.25 mg or 04-[address] 0.5 mg(2 00:00: 00:00 UNDER [...] hr 20 l tablet traMADol 2019-03 Yes [id number] 50mg Q6H Take 50 mg Me [facility] [...] hr 20 l tablet traMADol 2019-03 Yes [id number] 50mg Q6H Take 50 mg [facility] (ULTRAM) 50 0-[address] mg tablet 10:22: every 6 Hospi ta 20 (six) l hours as needed for moderate pain .Acute Pain. leuprolide 2020-1 Yes Lupron Metho di (LUPRON 0-07 Dep[place] [...] mouth Hospita tablet 19 nightly. l buPROPion 2019-0 Yes 300mg QD Take [address] [facility] (WELLBUTRIN 8-19 [facility]) 300 MG 16:16: mouth Medica l 24 hr 27 daily. Center tablet isosorbide 2019-0 Yes 30mg Take 30 mg C HI [...] tony 27 Center gabapentin 2020-0 Yes 300mg Q.[id number] Take [address] [facility] (NEURONTIN) 8-19 [id number] mg by L ukes 300 MG 16:16: [...] tony 27 Center gabapentin 2020-0 Yes 300mg Q.[id number] Take [address] [facility] (NEURONTIN) 8-19 [id number] mg by L ukes 300 MG 16:16: [...] MG tablet 16:16: daily. Medica l [place] clopidogreL 2020-0 Yes 75mg QD Take [address] [facility] (PLAVIX) 75 8-19 by mouth Luke s mg tablet 16:16: daily. Medica l [address] [place] [address] empaglifloz 2020-0 Yes 1{tbl} QD Take [address] in-linaglip 8-19 tablet by Mathew es tin 16:16: mouth Medical (GLYXAMBI) 27 daily. Center 10-5 mg per tablet simvastatin 2020-0 Yes 80mg QD Take [address] [facility] (ZOCOR) 80 8-19 by mouth [facility] MG tablet 16:16: nightly. Medi tony 27 Center gabapentin 2020-0 Yes 300mg Q.[id number] Take [address] (NEURONTIN) 8-19 [id number] mg by L ukes 300 MG 16:16: [...] mg tablet 16:16: daily. Medica l [place] empaglifloz 2020-0 Yes 1{tbl} QD Take [address] in-lin[facility] 8-19 tablet by Mathew es tin 16:16: mouth Medical (GLYXAMBI) 27 daily. Center 10-5 mg per tablet simvastatin 2019-0 Yes 80mg QD Take [address] [facility] (ZOCOR) 80 8-19 by mouth [facility] MG tablet 16:16: nightly. Medi tony 27 Center gabapentin 2020-0 Yes 300mg Q.[id number] Take [address] [facility] (NEURONTIN) 8-19 [id number] mg by L ukes 300 MG 16:16: [...] MG tablet 16:16: daily. Medica l [place] clopidogreL 2020-0 Yes 75mg QD Take [address] [facility] (PLAVIX) 75 8-19 by mouth Luke s mg tablet 16:16: daily. Medica l [place] empaglifloz 2020-0 Yes 1{tbl} QD Take [address] [facility]-[place] 8-19 tablet by Mathew es tin 16:16: mouth Medical (GLYXAMBI) 27 daily. Center 10-5 mg per tablet simvastatin 2020-0 Yes 80mg QD Take [address] [facility] (ZOCOR) 80 8-19 by mouth [facility] MG tablet 16:16: nightly. Medi tony 27 Center gabapentin 2020-0 Yes 300mg Q.[id number] Take [address] [facility] (NEURONTIN) 8-19 [id number] mg by L ukes 300 MG 16:16: [...] tablet 16:16: daily. Medica l 27 Center buPROPion 2020-0 Yes 300mg QD Take [address] [facility] (WELLBUTRIN 8-19 mg [facility] XL) 300 MG 16:16: mouth Medica l 24 hr 27 daily. Center tablet clopidogreL 2020-0 Yes 75mg QD Take 75 [...] tony 27 Center gabapentin 2020-0 Yes 300mg Q.[id number] Take [address] (NEURONTIN) 8-19 [id number] mg by L ukes 300 MG 16:16: [...] [facility]ukes 16:16: mouth Medical 27 daily. Center isosorbide 2020-0 Yes 30mg Take [address] dinitrate 8-19 by [facility] (ISORDIL) 16:16: once. Medical 30 MG 27 Center tablet olmesartan 2020-0 Yes 20mg QD Take [address] (BENICAR) 8-19 by [facility] 20 MG 16:16: daily. Medical tablet 27 Center buPROPion 2020-0 Yes 300mg QD Take [...] 20 MG 16:16: daily. Medical tablet [place] citalopram 2020-0 Yes 20mg QD Take [address] (CELEXA) 20 8-19 by mouth Luke s MG tablet 16:16: [facility]. [facility] [place] [facility] [place] citalopram 2020-0 Yes 20mg QD Take [address] (CELEXA) 20 8-19 by mouth Luke s MG tablet 16:16: daily. Medica l [place] clopidogreL 2020-0 Yes 75mg QD Take [address] [facility] (PLAVIX) 75 8-19 by mouth Luke [facility] mg tablet 16:16: daily. [facility] [place] [address] empaglifloz 2020-0 Yes 1{tbl} QD Take [address] [facility]-[place] 8-19 tablet by Mathew es tin 16:16: mouth Medical (GLYXAMBI) 27 daily. Center 10-5 mg per tablet simvastatin 2019-0 Yes 80mg QD Take [address] [facility] (ZOCOR) 80 8-19 by mouth [facility] MG tablet 16:16: nightly. Medi tony [place] gabapentin 2020-0 Yes 300mg Q.[id number] Take [address] (NEURONTIN) 8-19 [id number] mg by L ukes 300 MG 16:16: [...] [facility]ukes 16:16: mouth Medical 27 daily. Center clopidogreL 2020-0 Yes 75mg QD Take [address] [facility] (PLAVIX) 75 8-19 by mouth Luke s mg tablet 16:16: daily. Medica l 27 Center empaglifloz 2020-0 Yes 1{tbl} QD Take [address] [facility] 8-19 tablet by Mathew es tin 16:16: mouth Medical (GLYXAMBI) 27 daily. Center 10-5 mg per tablet buPROPion 2020-0 Yes 300mg QD Take 300 [...] tablet 16:16: daily. Medica l 27 Center simvastatin 2020-0 Yes 80mg QD Take [address] [facility] [address] (ZOCOR) 80 8-19 by mouth [facility] MG tablet 16:16: nightly. [facility] tony 27 [place] clopidogreL 2020-0 Yes 75mg QD Take 75 [...] by mouth [facility] MG tablet 16:16: nightly. [facility] [place] gabapentin 2020-0 Yes 300mg Q.[id number] Take [address] (NEURONTIN) 8-19 [id number] mg by Noé ukes 300 MG 16:16: 3D mouth 3 [...] Lukes 16:16: mouth Medical 27 daily. Center gabapentin 2020-0 Yes 300mg Q.[id number] Take [address] [facility] (NEURONTIN) 8-19 [id number] mg by L ukes 300 MG 16:16: 3D mouth 3 Medical capsule 27 (three) Center times daily. eszopiclone 2020-0 Yes 3mg Take [address] 3 mg tablet 8-19 by mouth Luke s 16:16: every Medical 27 night as Center needed Take immediatel y before bedtime . buPROPion 2020-0 Yes 300mg QD Take 300 [...] tablet 16:16: daily. Medica l 27 Center predniSONE 2020-0 Yes 5mg Q.5D Take [address] (DELTASONE) 8-19 by mouth 2 Ashlie kes 5 MG tablet 16:16: (two) Medic al 27 times Center daily. clopidogreL 2020-0 Yes 75mg QD Take 75 [...] tony 27 Center gabapentin 2020-0 Yes 300mg Q.[id number] Take [address] (NEURONTIN) 8-19 [id number] mg by L ukes 300 MG 16:16: [...] Lukes 16:16: mouth Medical 27 daily. Center ondansetron 2020-0 Yes Take by [facility] (ZOFRAN) 8 8-19 [facility] MG tablet 16:16: every 8 Medic al 27 (eight) Center hours as needed for Nausea. carbidopa-l 2020-0 Yes 1{tbl} Q.5D Take [address] evodopa 8-19 tablet by [facility] (SINEMET 16:16: mouth 2 Medica l CR) 25-100 27 (two) Center mg per times tablet daily. buPROPion 2020-0 Yes 300mg QD Take 300 [...] tablet 16:16: daily. Medica l 27 Center mecobal/lev 2020-0 Yes Take by [facility] omefolat 8-19 mouth. [facility] Ca/B6 phos 16:16: Medical (METANX 27 Center ORAL) clopidogreL 2020-0 Yes 75mg QD Take 75 [...] by mouth [facility]ukes MG tablet 16:16: nightly. [facility] tony 27 Center gabapentin 2020-0 Yes 300mg Q.[id number] Take [address] (NEURONTIN) 8-19 [id number] mg by L ukes 300 MG 16:16: [...] Lukes 16:16: mouth Medical 27 daily. Center abiraterone 2020-0 Yes 1000mg QD Take 1,000 [...] tony 27 Center gabapentin 2020-0 Yes 300mg Q.[id number] Take [address] (NEURONTIN) 8-19 [id number] mg by L ukes 300 MG 16:16: [...] tony 27 Center gabapentin 2020-0 Yes 300mg Q.[id number] Take [address] (NEURONTIN) 8-19 [id number] mg by L ukes 300 MG 16:16: [...] tony 27 Center gabapentin 2020-0 Yes 300mg Q.[id number] Take [address] (NEURONTIN) 8-19 [id number] mg by L ukes 300 MG 16:16: [...] [facility] evodopa 8-19 tablet by [place] (SINEMET 16:16: mouth 2 Medica l CR) [...] tablet 16:16: daily. Medica l 27 Center buPROPion 2020-0 Yes 300mg QD Take [address] (WELLBUTRIN 8-19 mg by [facility] XL) 300 MG 16:16: mouth Medica l 24 hr 27 daily. Center tablet clopidogreL 2020-0 Yes 75mg QD Take 75 [...] tony 27 Center gabapentin 2020-0 Yes 300mg Q.[id number] Take [address] (NEURONTIN) 8-19 [id number] mg by L ukes 300 MG 16:16: [...] Lukes 16:16: mouth Medical 27 daily. Center isosorbide 2020-0 Yes 30mg Take [address] dinitrate 8-19 by mouth [facility] (ISORDIL) 16:16: once. Medical 30 MG 27 Center tablet olmesartan 2020-0 Yes 20mg QD Take [address] (BENICAR) 8-19 by mouth [facility] 20 MG 16:16: daily. Medical tablet 27 Center buPROPion 2020-0 Yes 300mg QD Take [...] tablet 16:16: daily. Medica l 27 Center citalopram 2020-0 Yes 20mg QD [...] tony 27 Center gabapentin 2020-0 Yes 300mg Q.[id number] Take [address] (NEURONTIN) 8-19 [id number] mg by L ukes 300 MG 16:16: [...] [facility] evodopa 8-19 tablet by Bernadette (SINEMET 16:16: mouth 2 Medica l CR) 25-100 27 (two) Center mg per times tablet daily. mecobal/lev 2020-0 Yes Take by [facility] omefolat 8-19 mouth. Bernadette Ca/B6 phos 16:16: Medical (METANX 27 Center ORAL) abiraterone 2020-0 Yes 1000mg QD Take 1,[address] 250 mg Tab 8-19 mg by [facility]ukes 16:16: mouth Medical 27 daily. Center clopidogreL 2020-0 Yes 75mg QD Take [address] [facility] (PLAVIX) 75 8-19 by mouth Luke s mg tablet 16:16: daily. Medica l 27 Center empaglifloz 2020-0 Yes 1{tbl} QD Take [address] [facility]-[place] 8-19 tablet by Mathew es tin 16:16: mouth Medical (GLYXAMBI) 27 daily. Center 10-5 mg per tablet buPROPion 2020-0 Yes 300mg QD Take 300 [...] Luke s MG tablet 16:16: daily. Medica [facility] Center simvastatin 2020-0 Yes 80mg QD Take [address] [facility] [address] (ZOCOR) 80 8-19 by mouth [facility]ukes MG tablet 16:16: nightly. [address] clopidogreL 2020-0 Yes 75mg QD Take [address] [facility] (PLAVIX) 75 8-19 by mouth Luke s mg tablet 16:16: daily. Medica [address] empaglifloz 2020-0 Yes 1{tbl} QD Take [address] [place] 8-19 tablet by Mathew es tin 16:16: mouth Medical (GLYXAMBI) 27 daily. Center 10-5 mg per tablet simvastatin 2020-0 Yes 80mg QD Take [address] [facility] (ZOCOR) 80 8-19 by mouth [facility]ukes MG tablet 16:16: nightly. [address] gabapentin 2020-0 Yes 300mg Q.[id number] Take [address] (NEURONTIN) 8-19 [id number] mg by L ukes 300 MG 16:16: [...] Lukes 16:16: mouth Medical 27 daily. Center gabapentin 2020-0 Yes 300mg Q.[id number] Take [address] (NEURONTIN) 8-19 [id number] mg by L ukes 300 MG 16:16: 3D mouth 3 Medical capsule 27 (three) Center times daily. eszopiclone 2020-0 Yes 3mg Take [address] 3 mg tablet 8-19 by mouth Luke s 16:16: every Medical 27 night as Center needed Take immediatel y before bedtime . buPROPion 2020-0 Yes 300mg QD Take 300 [...] tablet 16:16: daily. Medica l 27 Center predniSONE 2020-0 Yes 5mg Q.5D Take [address] [facility] (DELTASONE) 8-19 by mouth 2 Ashlie kes 5 MG tablet 16:16: (two) Medic al 27 times Center daily. clopidogreL 2020-0 Yes 75mg QD Take [address] [facility] (PLAVIX) 75 8-19 by mouth Luke s mg tablet 16:16: daily. Medica l 27 Center empaglifloz 2020-0 Yes 1{tbl} QD Take [address] in-[facility] 8-19 tablet by Mathew ana tin 16:16: mouth Medical (GLYXAMBI) 27 daily. Center 10-5 mg per tablet simvastatin 2020-0 Yes 80mg QD Take [address] [facility] (ZOCOR) 80 8-19 by mouth [facility] MG tablet 16:16: nightly. Medi tony 27 Center gabapentin 2020-0 Yes 300mg Q.[id number] Take [address] (NEURONTIN) 8-19 [id number] mg by Noé ukes 300 MG 16:16: 3D mouth 3 [...] Lukes 16:16: mouth Medical 27 daily. Center ondansetron 2020-0 Yes Take by [facility] (ZOFRAN) 8 8-19 mouth [facility] MG tablet 16:16: every 8 Medic al 27 (eight) Center hours as needed for Nausea. carbidopa-l 2020-0 Yes 1{tbl} Q.5D Take [address] evodopa 8-19 tablet by Bernadette (SINEMET 16:16: mouth 2 Medica l CR) 25-100 27 (two) Center mg per times tablet daily. buPROPion 2020-0 Yes 300mg QD Take 300 [...] MG tablet 16:16: daily. Medica l [place] mecobal/lev 2020-0 Yes Take by [facility] omefolat 8-19 mouth. [facility] Ca/B6 phos 16:16: Medical (METANX 27 Center ORAL) clopidogreL 2020-0 Yes 75mg QD Take [address] [facility] (PLAVIX) 75 8-19 by mouth Luke s mg tablet 16:16: daily. [facility] [place] empaglifloz 2020-0 Yes 1{tbl} QD Take [address] in-lin[facility] 8-19 tablet by Mathew es tin 16:16: mouth Medical (GLYXAMBI) 27 daily. Center 10-5 mg per tablet simvastatin 2020-0 Yes 80mg QD Take [address] [facility] (ZOCOR) 80 8-19 by mouth [facility]ukes MG tablet 16:16: nightly. Medi tony 27 Center gabapentin 2020-0 Yes 300mg Q.[id number] Take [address] (NEURONTIN) 8-19 [id number] mg by L ukes 300 MG 16:16: [...] Lukes 16:16: mouth Medical 27 daily. Center abiraterone 2020-0 Yes 1000mg QD Take 1,000 [...] tony 27 Center gabapentin 2020-0 Yes 300mg Q.[id number] Take [address] (NEURONTIN) 8-19 [id number] mg by L ukes 300 MG 16:16: [...] daily. Center carbidopa-l 2020-0 2020- No 3{tbl} Q.[id number] Take 3 [facility] evodopa 6-04 05-[id number] (Sinemet) 00:00: 00:00 3D mouth 3 [facility] 25-100 mg 00 :00 (three) l per tablet times a day. carbidopa-l 2020-0 2020- No 3{tbl} Q.[id number] Take 3 [facility] evodopa 6-04 05-[id number] (Sinemet) 00:00: 00:00 3D mouth 3 [facility] 25-100 mg 00 :00 (three) l per tablet times a day. olmesartan 2020-0 Yes [facility] (BENICAR[facility]-11 [facility] 20 MG 00:00: Hospita tablet 00 l olmesartan 2020-0 Yes [facility] (BENICAR[facility]-11 [facility] 20 MG 00:00: Hospita tablet 00 l olmesartan 2020-0 2022- No 20mg QD Take 20 mg [facility] (BENICAR) 06-11-[address] 20 MG 00:00: 00:00 daily. Hospita tablet 00 :00 l olmesartan 2020-0 2022- No 20mg QD Take 20 mg [facility] (BENICAR) 06-11- by mouth [facility] 20 MG 00:00: 00:00 daily. Hospita tablet 00 :00 l olmesartan 2020-0 2022- No 20mg QD Take 20 mg [facility] (BENICAR) 06-11- by mouth [facility] 20 MG 00:00: 00:00 daily. Hospita tablet 00 :00 l olmesartan 2020-0 2022- No 20mg QD Take 20 mg [facility] (BENICAR) 06-11- by mouth [facility] 20 MG 00:00: 00:00 daily. Hospita tablet 00 :00 l olmesartan 2020-0 2022- No 20mg QD Take 20 mg [facility] (BENICAR) 06-11- by mouth [facility] 20 MG 00:00: 00:00 daily. Hospita tablet 00 :00 l olmesartan 2020-0 2022- No 20mg QD Take 20 mg [facility] (BENICAR) 06-11- by mouth [facility] 20 MG 00:00: 00:00 daily. Hospita tablet 00 :00 l olmesartan 2020-0 2022- No 20mg QD Take 20 mg [facility] (BENICAR) 06-11-[address] 20 MG 00:00: 00:00 daily. Hospita tablet 00 :00 l olmesartan 2020-0 2022- No 20mg QD Take 20 mg [facility] (BENICAR) 06-11-[address] 20 MG 00:00: 00:00 daily. Hospita tablet 00 :00 l olmesartan 2020-0 2022- No 20mg QD Take 20 mg [facility] (BENICAR) 06-11-[address] 20 MG 00:00: 00:00 daily. Hospita tablet 00 :00 l olmesartan 2020-0 2022- No 20mg QD Take 20 mg [facility] (BENICAR) 06-11-[address] 20 MG 00:00: 00:00 daily. Hospita tablet 00 :00 l olmesartan 2020-0 2022- No 20mg QD Take 20 mg [facility] (BENICAR) 06-11- by mouth [facility] 20 MG 00:00: 00:00 daily. Hospita tablet 00 :00 l olmesartan 2020-0 2022- No 20mg QD Take 20 mg [facility] (BENICAR) 06-11- by mouth [facility] 20 MG 00:00: 00:00 daily. Hospita tablet 00 :00 l olmesartan 2020-0 2022- No 20mg QD Take 20 mg [facility] (BENICAR) 06-[address] 20 MG 00:00: 00:00 daily. Hospita tablet 00 :00 l olmesartan 2020-0 2022- No 20mg QD Take 20 mg [facility] (BENICAR) 06-11- by mouth [facility] 20 MG 00:00: 00:00 daily. Hospita tablet 00 :00 l olmesartan 2020-0 2022- No 20mg QD Take 20 mg [facility] (BENICAR) 06-11- by mouth [facility] 20 MG 00:00: 00:00 daily. Hospita tablet 00 :00 l olmesartan 2020-0 2022- No 20mg QD Take 20 mg [facility] (BENICAR) 06-11- by mouth [facility] 20 MG 00:00: 00:00 daily. Hospita tablet 00 :00 l olmesartan 2020-0 2022- No 20mg QD Take 20 mg [facility] (BENICAR) 06-11-[address] 20 MG 00:00: 00:00 daily. Hospita tablet 00 :00 l olmesartan 2020-0 2022- No 20mg QD Take 20 mg [facility] (BENICAR) 06-11-[address] 20 MG 00:00: 00:00 daily. Hospita tablet 00 :00 l olmesartan 2020-0 2022- No 20mg QD Take 20 mg [facility] (BENICAR) 3-25 07-[address] 20 MG 00:00: 00:00 daily. Hospita tablet 00 :00 l predniSONE 2018-03 Yes 1 tab in [facility] (DELTASONE) 1-21 AM, [address] 5 mg tablet 00:00: in PM Hospi ta 00 l predniSONE 2018-03 [facility] 04-[facility] AM, [address] 5 mg tablet 00:00: in PM Hospi ta 00 l predniSONE 2018-03- No 1 tab in [place] [facility] (DELTASONE) 04-0905 AM, [address] 5 mg tablet 00:00: 00:00 in PM [facility] 00 :00 l predniSONE 2018-03- No 1 tab in [place] [facility] (DELTASONE) 04-09 0705 AM, [address] 5 mg tablet 00:00: 00:00 in PM [facility] 00 :00 l predniSONE 2018-03- No 1 tab in [place] [facility] (DELTASONE) 04-0905 AM, [address] 5 mg tablet 00:00: 00:00 in PM [facility] 00 :00 l predniSONE 2018-2021- No 1 tab in [place] [facility] (DELTASONE) 04-09 0705 AM, [address] 5 mg tablet 00:00: 00:00 in PM [facility] 00 :00 l predniSONE 2018-2021- No [facility] AM, [address] 5 mg tablet 00:00: 00:00 in PM [facility] 00 :00 l predniSONE 2018-2021- No [facility] 04-0905 AM, [address] 5 mg tablet 00:00: 00:00 in PM [facility] 00 :00 l predniSONE 2018-2021- No 1 tab in [place] [facility] (DELTASONE) 04-0905 AM, [address] 5 mg tablet 00:00: 00:00 in PM [facility] 00 :00 l predniSONE 2018-03- No 1 tab in [place] [facility] (DELTASONE) 04-09 0705 AM, [address] 5 mg tablet 00:00: 00:00 in PM [facility] 00 :00 l predniSONE 2018-2- No 1 tab in [place] (DELTASONE) 04-09 07-05 AM, [address] 5 mg tablet 00:00: 00:00 in PM [facility] 00 :00 l predniSONE 2018-2- No 1 tab in [place] (DELTASONE) 04-09 0705 AM, [address] 5 mg tablet 00:00: 00:00 in PM [facility] 00 :00 l predniSONE 2018-2021- No 1 tab in [place] (DELTASONE) 04-0905 AM, [address] 5 mg tablet 00:00: 00:00 in PM [facility] 00 :00 l predniSONE 2018-2021- No 1 tab in [facility] [place] (DELTASONE) 04-0905 AM, [address] 5 mg tablet 00:00: 00:00 in PM [facility] 00 :00 l predniSONE 2018-2- No 1 tab in [facility] (DELTASONE) 04-0905 AM, [address] 5 mg tablet 00:00: 00:00 in PM [facility] 00 :00 l predniSONE 2018-2021- No 1 tab in [place] (DELTASONE) 04-0905 AM, [address] 5 mg tablet 00:00: 00:00 in PM [facility] 00 :00 l predniSONE 2018-2- No 1 tab in [place] (DELTASONE) 04-0905 AM, [address] 5 mg tablet 00:00: 00:00 in PM [facility] 00 :00 l predniSONE 2018-2- No 1 tab in [place] (DELTASONE) 04-0905 AM, [address] 5 mg tablet 00:00: 00:00 in PM [facility] 00 :00 l predniSONE 2018-2021- No 1 tab in [place] (DELTASONE) 04-09 0705 AM, [address] 5 mg tablet 00:00: 00:00 in PM [facility] 00 :00 l predniSONE 2018-2- No 1 tab in [place] (DELTASONE) 04-09 07-05 AM, [address] 5 mg tablet 00:00: 00:00 in PM [facility] 00 :00 l predniSONE 2018-2- No 1 tab in [facility] (DELTASONE) 1-21 07-05 AM, [address] 5 mg tablet 00:00: 00:00 in PM [facility] 00 :00 l Immunizations Ordered Immunization Filled Immunization Date Status Commumm ts Source Name Name PFIZER COVID-19 MRNA 2020-05-17 Completed [facility] VACCINATION 00:00:00 [facility] PFIZER COVID-19 MRNA 2020-05-17 Completed [facility] VACCINATION 00:00:00 [facility] PFIZER COVID-19 MRNA 2020-05-17 Completed [facility]ist VACCINATION 00:00:00 [facility] PFIZER COVID-19 MRNA 2020-05-17 Completed [facility] odist VACCINATION 00:00:00 [facility] PFIZER COVID-19 MRNA 2020-05-17 Completed [facility] odist VACCINATION 00:00:00 [facility] PFIZER COVID-19 MRNA 2020-05-17 Completed Meth odist VACCINATION 00:00:00 [facility] PFIZER COVID-19 MRNA 2020-05-17 Completed Meth odist VACCINATION 00:00:00 [facility] PFIZER COVID-19 MRNA 2020-05-17 Completed Meth odist VACCINATION 00:00:00 [facility] PFIZER COVID-19 MRNA 2020-05-17 Completed [facility] odist VACCINATION 00:00:00 [facility] PFIZER COVID-19 MRNA 2020-05-17 Completed Meth odist VACCINATION 00:00:00 [facility] PFIZER COVID-19 MRNA 2020-05-17 Completed [facility] odist VACCINATION 00:00:00 [facility] PFIZER COVID-19 MRNA 2020-05-17 Completed [facility] odist VACCINATION 00:00:00 [facility] PFIZER COVID-19 MRNA 2020-05-17 Completed Meth odist VACCINATION 00:00:00 [facility] PFIZER COVID-19 MRNA 2020-05-17 Completed Meth odist VACCINATION 00:00:00 [facility] PFIZER COVID-19 MRNA 2020-05-17 Completed Meth odist VACCINATION 00:00:00 [facility] PFIZER COVID-19 MRNA 2020-05-17 Completed Meth odist VACCINATION 00:00:00 [facility] PFIZER COVID-19 MRNA 2020-05-17 Completed Meth odist VACCINATION 00:00:00 [facility] PFIZER COVID-19 MRNA 2020-05-17 Completed Meth odist VACCINATION 00:00:00 [facility] PFIZER COVID-19 MRNA 2020-05-17 Completed Meth odist VACCINATION 00:00:00 [facility] PFIZER COVID-19 MRNA 2020-05-17 Completed Meth odist VACCINATION 00:00:00 [facility] PFIZER COVID-19 MRNA 2020-05-17 Completed Meth odist VACCINATION 00:00:00 [facility] PFIZER COVID-19 MRNA 2020-05-17 Completed Meth odist VACCINATION 00:00:00 [facility] PFIZER COVID-19 MRNA 2020-04-26 Completed [facility] VACCINATION 00:00:00 [facility] PFIZER COVID-19 MRNA 2020-04-26 Completed [facility] VACCINATION 00:00:00 [facility] PFIZER COVID-19 MRNA 2020-04-26 Completed [facility] VACCINATION 00:00:00 [facility] PFIZER COVID-19 MRNA 2020-04-26 Completed [facility] VACCINATION 00:00:00 [facility] PFIZER COVID-19 MRNA 2020-04-26 Completed [facility] VACCINATION 00:00:00 [facility] PFIZER COVID-19 MRNA 2020-04-26 Completed [facility] VACCINATION 00:00:00 [facility] PFIZER COVID-19 MRNA 2020-04-26 Completed [facility] VACCINATION 00:00:00 [facility] PFIZER COVID-19 MRNA 2020-04-26 Completed [facility] VACCINATION 00:00:00 [facility] PFIZER COVID-19 MRNA 2020-04-26 Completed [facility] VACCINATION 00:00:00 [facility] PFIZER COVID-19 MRNA 2020-04-26 Completed [facility] VACCINATION 00:00:00 [facility] PFIZER COVID-19 MRNA 2020-04-26 Completed [facility] VACCINATION 00:00:00 [facility] PFIZER COVID-19 MRNA 2020-04-26 Completed [facility] VACCINATION 00:00:00 [facility] PFIZER COVID-19 MRNA 2020-04-26 Completed [facility] VACCINATION 00:00:00 [facility] PFIZER COVID-19 MRNA 2020-04-26 Completed [facility] VACCINATION 00:00:00 [facility] PFIZER COVID-19 MRNA 2020-04-26 Completed [facility] VACCINATION 00:00:00 [facility] PFIZER COVID-19 MRNA 2020-04-26 Completed [facility] VACCINATION 00:00:00 [facility] PFIZER COVID-19 MRNA 2020-04-26 Completed [facility] VACCINATION 00:00:00 [facility] PFIZER COVID-19 MRNA 2020-04-26 Completed [facility] VACCINATION 00:00:00 [facility] PFIZER COVID-19 MRNA 2020-04-26 Completed [facility] VACCINATION 00:00:00 [facility] PFIZER COVID-19 MRNA 2020-04-26 Completed [facility] VACCINATION 00:00:00 [facility] PFIZER COVID-19 MRNA 2020-04-26 Completed [facility] od[facility] VACCINATION 00:00:00 [facility] PFIZER COVID-19 MRNA 2020-04-26 Completed [facility] odist VACCINATION 00:00:00 [facility] Vital Signs Vital Name Observation Time Observation Value Comments Source HEIGHT 2019-10-21 00:00:00 177.8 cm WEIGHT 2019-10-21 00:00:00 120.203 kg Systolic blood 2020-06-06 18:01:00 116 mm[Hg] [facility] Diastolic blood 2020-06-06 18:01:00 78 mm[Hg] Unive rsity [facility] Heart rate 2020-06-06 18:01:00 88 /min [facility] Respiratory rate 2020-06-06 17:57:00 18 /min [facility] Oxygen saturation in 2020-06-06 16:50:00 95 /min [facility] Arterial blood by [facility] Pulse oximetry [place] Body temperature 2020-06-06 16:34:00 37.06 Elizabet [facility] Body height 2020-06-06 09:17:00 177.8 cm [facility] Body weight 2020-06-06 09:17:00 108.5 kg [facility] BMI 2020-06-06 09:17:00 34.32 kg/m2 [facility] HEIGHT 2019-10-21 00:00:00 177.8 cm WEIGHT 2019-10-21 00:00:00 120.203 kg Body height 2021-10-12 18:02:00 177.8 cm [facility] Body weight 2021-10-12 18:02:00 97.523 kg [facility] BMI 2021-10-12 18:02:00 30.85 kg/m2 [facility] Systolic blood 2021-09-29 16:58:01 133 mm[Hg] [facility] Di[facility] blood 2021-09-29 16:58:01 72 mm[Hg] [facility] pressure Heart rate 2021-09-29 16:58:01 73 /min [facility] Body temperature 2021-09-29 16:58:01 36.17 Elizabet [facility] Respiratory rate 2021-09-29 16:58:01 18 /min [facility] Oxygen saturation in 2021-09-29 16:58:01 91 /min [facility] Arterial blood by Pulse oximetry Procedures Procedure Date / Time Performing Clinician Source Performed RAD ONC COURSE SUMMARY 2022-07-13 17:53:10 Provider, Unknown [facility] POC GLUCOSE 2021-09-29 16:57:00 Sandra, Iti [facility] COVID-19 QUALITATIVE 2021-09-29 15:52:00 Sandra, Iti [facility] RT-PCR POC GLUCOSE 2021-09-29 13:19:00 Sandra, Iti [facility] CBC WITH PLATELET AND 2021-09-29 09:29:00 Tiki Castle [facility] DIFFERENTIAL BASIC METABOLIC PANEL 2021-09-29 09:29:00 Corrine [facility] ESTIMATED GFR 2021-09-29 09:29:00 Corrine [facility] POC GLUCOSE 2021-09-29 01:18:00 Sandra, Iti [facility] POC GLUCOSE 2021-09-28 20:07:00 Sandra, Iti [facility] ECG PRE/POST OP 2021-09-28 19:07:55 Corrine [facility] XR CHEST 1 VW PORTABLE 2021-09-28 19:05:15 [facility]DE 2021-09-28 18:28:03 [facility] PACEMAKER OR DEFIBRILLATOR POC GLUCOSE 2021-09-28 16:19:00 Sandra, Iti [facility] ABO AND RH CONFIRMATION 2021-09-28 16:02:00 Dharmesh Gillette [facility] BY PROTOCOL POC GLUCOSE 2021-09-28 13:04:00 Sandra, Iti [facility] TYPE AND SCREEN 2021-09-28 10:34:00 Dharmesh Gillette [facility] BASIC METABOLIC PANEL 2021-09-28 10:25:00 Dharmesh Gillette [facility] CBC WITH PLATELET AND 2021-09-28 10:25:00 Dharmesh Gillette [facility] DIFFERENTIAL PROTHROMBIN TIME WITH INR 2021-09-28 10:25:[address] [facility] ESTIMATED GFR 2021-09-28 10:25:00 Dharmesh Gillette [facility] POC GLUCOSE 2021-09-28 01:34:00 Sandra, Iti [facility] POC GLUCOSE 2021-09-27 22:10:00 Sandra, [facility]i [facility] POC GLUCOSE 2021-09-27 16:55:00 Sandra, [facility]i [facility] POC GLUCOSE 2021-09-27 01:42:00 Sandra, Iti [facility] POC GLUCOSE 2021-09-26 22:25:00 Sandra, Iti [facility] ECG 12-LEAD 2021-09-26 18:09:57 Sandra, Iti [facility] POC GLUCOSE 2021-09-26 15:50:00 Sandra, Iti [facility] POC GLUCOSE 2021-09-26 12:40:00 Sandra, Iti [facility] POC GLUCOSE 2021-09-26 01:45:00 Sandra, Iti [facility] POC GLUCOSE 2021-09-25 21:25:00 Sandra, Iti [facility] POC GLUCOSE 2021-09-25 16:35:00 Sandra, Iti [facility] POC GLUCOSE 2021-09-25 01:40:00 Laeeq, [facility] POC GLUCOSE 2021-09-24 21:30:00 Laeeq, [facility] POC GLUCOSE 2021-09-24 16:36:00 Laeeq, [facility] POC GLUCOSE 2021-09-24 12:29:00 Laeeq, [facility] POC GLUCOSE 2021-09-24 01:35:00 Laeeq, [facility] POC GLUCOSE 2021-09-23 22:13:00 Laeeq, [facility] POC GLUCOSE 2021-09-23 17:13:00 Laeeq, [facility] ZZCOVID-19 ANTI-SPIKE IGG 2021-09-23 08:41:00 Kan Guillen [facility] ANTIBODY TITER Rolando ZZCOVID-19 SEROLOGY 2021-09-23 08:41:00 Kan Guillen [facility] PATIENT SURVEILLANCE Rolando CBC WITH PLATELET AND 2021-09-23 08:41:00 Laeeq, [facility] DIFFERENTIAL COMPREHENSIVE METABOLIC 2021-09-23 08:41:00 Laeeq, [facility] PANEL MAGNESIUM LEVEL 2021-09-23 08:41:00 Laeeq, [facility] PHOSPHORUS LEVEL 2021-09-23 08:41:00 Laeeq, [facility] ESTIMATED GFR 2021-09-23 08:41:00 Laeeq, [facility] POC GLUCOSE 2021-09-23 01:51:00 Laeeq, [facility] TTE COMPLETE, WO 2021-09-22 19:25:00 Laeeq, [facility] CONTRAST, W DOPPLER ([id number]) POC GLUCOSE 2021-09-22 13:07:00 Laeeq, [facility] MRI BRAIN WO CONTRAST 2021-09-22 11:01:34 Laeeq, [facility] CBC WITH PLATELET AND 2021-09-22 10:09:00 Laeeq, [facility] DIFFERENTIAL COMPREHENSIVE METABOLIC 2021-09-22 10:09:00 Laeeq, [facility] PANEL MAGNESIUM LEVEL 2021-09-22 10:09:00 Laeeq, [facility] PHOSPHORUS LEVEL 2021-09-22 10:09:00 Laeeq, [facility] ESTIMATED GFR 2021-09-22 10:09:00 Laeeq, [facility] US CAROTID DUPLEX 2021-09-22 03:47:21 [facility] POC GLUCOSE 2021-09-22 01:51:00 Laeeq, [facility] POC GLUCOSE 2021-09-21 22:20:00 Laeeq, [facility] LACTIC ACID LEVEL, SEPSIS 2021-09-21 19:31:00 Laeeq, [facility] - NOW AND REPEAT 2X EVERY 3 HOURS AMMONIA LEVEL 2021-09-21 19:31:00 Lae, [facility] VITAMIN B12 LEVEL 2021-09-21 19:31:00 [facility], [facility] THYROID STIMULATING 2021-09-21 19:31:00 Lae, [facility] HORMONE VITAMIN B1 LEVEL, WHOLE 2021-09-21 19:31:00 Lae, [facility] BLOOD SYPHILIS TREPONEMA SCREEN 2021-09-21 19:31:00 Laeeq, [facility] WITH RPR CONFIRMATION (REVERSE ALGORITHM) TROPONIN T 2021-09-21 19:31:00 Lae, [facility] VITAMIN D 25 HYDROXY 2021-09-21 19:24:00 Lae, [facility] LEVEL CT ANGIOGRAM NECK W WO 2021-09-21 18:32:06 Laeeq, [facility] CONTRAST CT ANGIOGRAM HEAD W WO 2021-09-21 18:30:49 [facility], [facility] CONTRAST COVID-19 QUALITATIVE 2021-09-21 17:59:00 Ramon Yi [facility] RT-PCR HEMOGLOBIN A1C 2021-09-21 17:59:00 Lae, [facility] POC GLUCOSE 2021-09-21 17:58:00 [facility], [facility] VENOUS BLOOD GAS 2021-09-21 17:54:[address] [facility] LIPID PANEL 2021-09-21 17:52:00 Lae, [facility] XR CHEST 1 VW PORTABLE 2021-09-21 17:32:48 Ramon Yi [facility] DC CRITICAL CARE 2021-09-21 17:16:17 [facility]INJUR[facility] PATIENT INIT 30-74 MIN ECG ED PRELIMINARY 2021-09-21 17:16:17 Ramon Yi [facility] INTERPRETATION CT HEAD WO CONTRAST 2021-09-21 16:37:26 Ramon Yi [facility] CBC WITH PLATELET AND 2021-09-21 15:55:00 Kd Ramon [facility] DIFFERENTIAL COMPREHENSIVE METABOLIC 2021-09-21 15:55[facility]00 [facility] MAGNESIUM LEVEL 2021-09-21 15:55:00 [facility] LACTIC ACID LEVEL, SEPSIS 2021-09-21 15:55:00 Laeeq, [facility] - NOW AND REPEAT 2X EVERY 3 HOURS TROPONIN T 2021-09-21 15:55:00 Laeeq, [facility] B NATRIURETIC PEPTIDE 2021-09-21 15:55:00 [facility] 2021-09-21 15:55:00 [facility] 12-LEAD 2021-09-21 15:45:18 [facility] POC GLUCOSE 2021-09-21 15:41:00 [facility] AUTHORIZATION FOR RELEASE 2020-06-09 05:01:00 Doctor Unassigned, [facility] [place] [facility] TROPONIN I 2020-06-06 15:54:00 Chidi Sendil [facility] LIPID PANEL ([id number])(TOTAL 2020-06-06 15:54:00 Chidi Sendil [facility] CHOLESTEROL, [facility] TRIGLYCERIDES, HDL) N-TERMINAL PRO-BNP 2020-06-06 15:54:[address] [facility] COVID-19 (MOLECULAR 2020-06-06 08:46:00 Hamzah Barr [facility] TESTING [facility] NUCLEIC ACID AMPLIFICATION) COVID-19 (ID NOW RAPID 2020-06-06 04:41:00 Singer Hamzah [facility] TESTING) Medical Branch XR CHEST 1 VW 2020-06-06 03:04:04 Singer [facility] TROPONIN I 2020-06-06 02:53:00 Singer [facility] COMP. METABOLIC PANEL 2020-06-06 02:53:[id number] CBC WITH DIFF 2020-06-06 02:53:00 [facility] GLYCOSYLATED HEMOGLOBIN 2020-06-06 02:53:00 Stone Adame [facility] (A1C) Medical Branch URINALYSIS 2020-06-06 02:53:00 [facility] NOTICE OF PRIVACY 2020-06-06 02:26:49 Doctor Unassigned, [facility] PRACTICES [place] [facility] Plan of Care Planned Activity Planned Date Details Comments Source Future Scheduled 2022-11-18 Influenza Vaccine (#1) [facility] 00:00:00 [code = Influenza Medical Ce nter Vaccine (#1)] Future Scheduled 2022-10-21 [facility] 05:09:04 malignant neoplasm of colon (procedure) [code = 097053956] Future Scheduled 2022-10-21 [facility] 05:09:04 malignant neoplasm of colon (procedure) [code = 961602346] Future Scheduled 2022-10-21 [facility] 05:09:04 malignant neoplasm of colon (procedure) [code = 673492021] Future Scheduled 2022-10-21 [facility] 05:09:04 (procedure) [code = 375163562] Future Scheduled 2022-10-21 [facility] 05:09:04 malignant neoplasm of colon (procedure) [code = 280737238] Future Scheduled 2022-10-21 [facility] 05:09:04 malignant neoplasm of colon (procedure) [code = 221156628] Future Scheduled 2022-10-21 SHINGLES VACCINES (1 [facility] 05:09:04 of 2) [code = SHINGLES VACCINES (1 of 2)] Future Scheduled 2022-10-21 65+ [facility] [facility] 05:09:04 VACCINE (1 - PCV) [code = 65+ PNEUMOCOCCAL VACCINE (1 - PCV)] Future Scheduled 2022-10-21 COVID-19 VACCINE (3 - [facility] 05:09:04 Pfizer series) [code = COVID-19 VACCINE (3 - Pfizer series)] Future Scheduled 2022-10-21 INFLUENZA VACCINE [facility] 05:09:04 [code = INFLUENZA VACCINE] Future Scheduled 2022-05-25 [facility] 10:45:03 (procedure) [code = 667967945] Future Scheduled 2022-05-25 COLONOSCOPY SCREENING [facility] 10:45:03 [code = COLONOSCOPY SCREENING] Future Scheduled 2022-05-25 SHINGLES VACCINES (1 Met [facility] Test 10:45:03 of 2) [code = SHINGLES VACCINES (1 of 2)] Future Scheduled 2022-05-25 65+ [facility]OCOCCAL [facility] 10:45:03 VACCINE (1 - PCV) [code = 65+ PNEUMOCOCCAL VACCINE (1 - PCV)] Future Scheduled 2022-05-25 COVID-19 VACCINE (3 - [facility] 10:45:03 Booster for Pfizer series) [code = COVID-19 VACCINE (3 - Booster for Pfizer series)] Future Scheduled 2022-05-25 INFLUENZA VACCINE [facility] 10:45:03 [code = INFLUENZA VACCINE] Future Scheduled 2022-05-25 [facility] 10:45:03 (procedure) [code = 671515426] Future Scheduled 2022-05-25 [facility] 10:45:03 [code = COLONOSCOPY SCREENING] Future Scheduled 2022-05-25 SHINGLES VACCINES (1 Met [facility] Test 10:45:03 of 2) [code = SHINGLES VACCINES (1 of 2)] Future Scheduled 2022-05-25 65+ [facility]OCOCCAL [facility] Test 10:45:03 VACCINE (1 - PCV) [code = 65+ PNEUMOCOCCAL VACCINE (1 - PCV)] Future Scheduled 2022-05-25 COVID-19 VACCINE (3 - [facility] 10:45:03 Booster for Pfizer series) [code = COVID-19 VACCINE (3 - Booster for Pfizer series)] Future Scheduled 2022-05-25 INFLUENZA VACCINE [facility] Test 10:45:03 [code = INFLUENZA VACCINE] Future Scheduled 2022-04-15 [facility] 10:50:51 (procedure) [code = 725513001] Future Scheduled 2022-04-15 [facility] SCREENING [facility] 10:50:51 [code = COLONOSCOPY SCREENING] Future Scheduled 2022-04-15 SHINGLES VACCINES (1 Met [facility] Test 10:50:51 of 2) [code = SHINGLES VACCINES (1 of 2)] Future Scheduled 2022-04-15 65+ [facility]OCOCCAL [facility] 10:50:51 VACCINE (1 - PCV) [code = 65+ PNEUMOCOCCAL VACCINE (1 - PCV)] Future Scheduled 2022-04-15 COVID-19 VACCINE (3 - [facility] Test 10:50:51 Booster for Pfizer series) [code = COVID-19 VACCINE (3 - Booster for Pfizer series)] Future Scheduled 2022-04-15 INFLUENZA VACCINE [facility] Test 10:50:51 [code = INFLUENZA VACCINE] Future Scheduled 2022-03-[address] [facility] Test 00:00:00 (12+) [code = Medical Center DEPRESSION SCREENING (12+)] Future Scheduled 2022-03-[address] F[address]S [address]K SCREENING [facility] Test 00:00:00 [code = FALLS RISK Medical C enter SCREENING] Future Scheduled 2022-03-[address] [facility] Test 00:00:00 (12+) [code = Medical Center DEPRESSION SCREENING (12+)] Future Scheduled 2022-03-20 FALLS RISK SCREENING [facility] Test 00:00:00 [code = FALLS RISK Medical C enter SCREENING] Future Scheduled 2022-03-[address] [facility] Test 00:00:00 (12+) [code = Medical Center DEPRESSION SCREENING (12+)] Future Scheduled 2022-03-20 F[address]S RISK SCREENING [facility] Test 00:00:00 [code = FALLS RISK Medical C enter SCREENING] Future Scheduled 2022-03-[address] [facility] Test 00:00:00 (12+) [code = Medical Center DEPRESSION SCREENING (12+)] Future Scheduled 2022-03-20 [address]ISK SCREENING [facility] Test 00:00:00 [code = FALLS RISK Medical C enter SCREENING] Future Scheduled 2022-03-04 Hepatitis C screening [facility] Test 08:17:18 (procedure) [code = [id number]] Future Scheduled 2022-03-04 COLONOSCOPY SCREENING [facility] Test 08:17:18 [code = COLONOSCOPY SCREENING] Future Scheduled 2022-03-04 SHINGLES VACCINES (1 Met [facility] Test 08:17:18 of 2) [code = SHINGLES VACCINES (1 of 2)] Future Scheduled 2022-03-04 65+ [facility]OCOCCAL [facility] 08:17:18 VACCINE (1 - PCV) [code = 65+ PNEUMOCOCCAL VACCINE (1 - PCV)] Future Scheduled 2022-03-04 COVID-19 VACCINE (3 - [facility] Test 08:17:18 Booster for Pfizer series) [code = COVID-19 VACCINE (3 - Booster for Pfizer series)] Future Scheduled 2022-03-04 INFLUENZA VACCINE [facility] Test 08:17:18 [code = INFLUENZA VACCINE] Future Scheduled 2022-02-08 HEPATITIS B VACCINES Met [facility] Test 08:58:12 (1 of 3 - 3-dose series) [code = HEPATITIS B VACCINES (1 of 3 - 3-dose series)] Future Scheduled 2022-02-08 Hepatitis C screening [facility] Test 08:58:12 (procedure) [code = [id number]] Future Scheduled 2022-02-08 COLONOSCOPY SCREENING [facility] Test 08:58:12 [code = COLONOSCOPY SCREENING] Future Scheduled 2022-02-08 SHINGLES VACCINES (1 Met [facility] Test 08:58:12 of 2) [code = SHINGLES VACCINES (1 of 2)] Future Scheduled 2022-02-08 65+ [facility]OCOCCAL [facility] 08:58:12 VACCINE (1 - PCV) [code = 65+ PNEUMOCOCCAL VACCINE (1 - PCV)] Future Scheduled 2022-02-08 COVID-19 VACCINE (3 - [facility] Test 08:58:12 Booster for Pfizer series) [code = COVID-19 VACCINE (3 - Booster for Pfizer series)] Future Scheduled 2022-02-08 INFLUENZA VACCINE [email or web address] Test 08:58:12 [code = INFLUENZA VACCINE] Future Scheduled 2022-02-08 HEPATITIS B VACCINES Met [facility] Test 08:58:12 (1 of 3 - 3-dose series) [code = HEPATITIS B VACCINES (1 of 3 - 3-dose series)] Future Scheduled 2022-02-08 Hepatitis C screening [facility] Test 08:58:12 (procedure) [code = [id number]] Future Scheduled 2022-02-08 COLONOSCOPY SCREENING [facility] Test 08:58:12 [code = COLONOSCOPY SCREENING] Future Scheduled 2022-02-08 SHINGLES VACCINES (1 [facility] Test 08:58:12 of 2) [code = SHINGLES VACCINES (1 of 2)] Future Scheduled 2022-02-08 65+ P[facility]UMOCOCCAL [facility] Test 08:58:12 VACCINE (1 - PCV) [code = 65+ PNEUMOCOCCAL VACCINE (1 - PCV)] Future Scheduled 2022-02-08 COVID-19 VACCINE (3 - [facility] Test 08:58:12 Booster for Pfizer series) [code = COVID-19 VACCINE (3 - Booster for Pfizer series)] Future Scheduled 2022-02-08 INFLUENZA VACCINE [facility] Test 08:58:12 [code = INFLUENZA VACCINE] Future Scheduled 2022-02-08 HEPATITIS B VACCINES [facility] Test 08:58:12 (1 of 3 - 3-dose series) [code = HEPATITIS B VACCINES (1 of 3 - 3-dose series)] Future Scheduled 2022-02-08 Hepatitis C screening [facility] Test 08:58:12 (procedure) [code = 717340465] Future Scheduled 2022-02-08 COLONOSCOPY SCREENING [facility] Test 08:58:12 [code = COLONOSCOPY SCREENING] Future Scheduled 2022-02-08 SHINGLES VACCINES (1 [facility] Test 08:58:12 of 2) [code = SHINGLES VACCINES (1 of 2)] Future Scheduled 2022-02-08 65+ P[facility]UMOCOCCAL [facility] Test 08:58:12 VACCINE (1 - PCV) [code = 65+ PNEUMOCOCCAL VACCINE (1 - PCV)] Future Scheduled 2022-02-08 COVID-19 VACCINE (3 - [facility] Test 08:58:12 Booster for Pfizer series) [code = COVID-19 VACCINE (3 - Booster for Pfizer series)] Future Scheduled 2022-02-08 INFLUENZA VACCINE [facility] Test 08:58:12 [code = INFLUENZA VACCINE] Future Scheduled 2022-02-08 HEPATITIS B VACCINES [facility] Test 08:58:12 (1 of 3 - 3-dose series) [code = HEPATITIS B VACCINES (1 of 3 - 3-dose series)] Future Scheduled 2022-02-08 Hepatitis C screening [facility] Test 08:58:12 (procedure) [code = [id number]] Future Scheduled 2022-02-08 COLONOSCOPY SCREENING [facility] Test 08:58:12 [code = COLONOSCOPY SCREENING] Future Scheduled 2022-02-08 SHINGLES VACCINES (1 [facility] Test 08:58:12 of 2) [code = SHINGLES VACCINES (1 of 2)] Future Scheduled 2022-02-08 65+ P[facility]UMOCOCCAL [facility] Test 08:58:12 VACCINE (1 - PCV) [code = 65+ PNEUMOCOCCAL VACCINE (1 - PCV)] Future Scheduled 2022-02-08 COVID-19 VACCINE (3 - [facility] 08:58:12 Booster for Pfizer series) [code = COVID-19 VACCINE (3 - Booster for Pfizer series)] Future Scheduled 2022-02-08 INFLUENZA VACCINE [facility] Test 08:58:12 [code = INFLUENZA VACCINE] Future Scheduled 2022-02-08 HEPATITIS B VACCINES [facility] Test 08:58:12 (1 of 3 - 3-dose series) [code = HEPATITIS B VACCINES (1 of 3 - 3-dose series)] Future Scheduled 2022-02-08 Hepatitis C screening [facility] Test 08:58:12 (procedure) [code = 976668530] Future Scheduled 2022-02-08 COLONOSCOPY SCREENING [facility] Test 08:58:12 [code = COLONOSCOPY SCREENING] Future Scheduled 2022-02-08 SHINGLES VACCINES (1 [facility] Test 08:58:12 of 2) [code = SHINGLES VACCINES (1 of 2)] Future Scheduled 2022-02-08 65+ P[facility]UMOCOCCAL [facility] Test 08:58:12 VACCINE (1 - PCV) [code = 65+ PNEUMOCOCCAL VACCINE (1 - PCV)] Future Scheduled 2022-02-08 COVID-19 VACCINE (3 - [facility] 08:58:12 Booster for Pfizer series) [code = COVID-19 VACCINE (3 - Booster for Pfizer series)] Future Scheduled 2022-02-08 INFLUENZA VACCINE [facility] Test 08:58:12 [code = INFLUENZA VACCINE] Future Scheduled 2022-02-08 HEPATITIS B VACCINES [facility] Test 08:58:12 (1 of 3 - 3-dose series) [code = HEPATITIS B VACCINES (1 of 3 - 3-dose series)] Future Scheduled 2022-02-08 Hepatitis C screening [facility] Test 08:58:12 (procedure) [code = 994910072] Future Scheduled 2022-02-08 COLONOSCOPY SCREENING [facility] Test 08:58:12 [code = COLONOSCOPY SCREENING] Future Scheduled 2022-02-08 SHINGLES VACCINES (1 [facility] Test 08:58:12 of 2) [code = SHINGLES VACCINES (1 of 2)] Future Scheduled 2022-02-08 65+ P[facility]UMOCOCCAL [facility] Test 08:58:12 VACCINE (1 - PCV) [code = 65+ PNEUMOCOCCAL VACCINE (1 - PCV)] Future Scheduled 2022-02-08 COVID-19 VACCINE (3 - [facility] 08:58:12 Booster for Pfizer series) [code = COVID-19 VACCINE (3 - Booster for Pfizer series)] Future Scheduled 2022-02-08 INFLUENZA VACCINE [facility] Test 08:58:12 [code = INFLUENZA VACCINE] Future Scheduled 2022-02-08 HEPATITIS B VACCINES [facility] Test 08:58:12 (1 of 3 - 3-dose series) [code = HEPATITIS B VACCINES (1 of 3 - 3-dose series)] Future Scheduled 2022-02-08 [facility] screening [facility] Test 08:58:12 (procedure) [code = 625221259] Future Scheduled 2022-02-08 COLONOSCOPY SCREENING [facility] Test 08:58:12 [code = COLONOSCOPY SCREENING] Future Scheduled 2022-02-08 SHINGLES VACCINES (1 [facility] Test 08:58:12 of 2) [code = SHINGLES VACCINES (1 of 2)] Future Scheduled 2022-02-08 65+ P[facility]UMOCOCCAL [facility] Test 08:58:12 VACCINE (1 - PCV) [code = 65+ PNEUMOCOCCAL VACCINE (1 - PCV)] Future Scheduled 2022-02-08 COVID-19 VACCINE (3 - [facility] 08:58:12 Booster for Pfizer series) [code = COVID-19 VACCINE (3 - Booster for Pfizer series)] Future Scheduled 2022-02-08 INFLUENZA VACCINE [facility] Test 08:58:12 [code = INFLUENZA VACCINE] Future Scheduled 2022-02-08 HEPATITIS B VACCINES [facility] Test 08:58:12 (1 of 3 - 3-dose series) [code = HEPATITIS B VACCINES (1 of 3 - 3-dose series)] Future Scheduled 2022-02-08 Hepatitis C screening [facility] Test 08:58:12 (procedure) [code = [id number]] Future Scheduled 2022-02-08 COLONOSCOPY SCREENING [facility] Test 08:58:12 [code = COLONOSCOPY SCREENING] Future Scheduled 2022-02-08 SHINGLES VACCINES (1 [facility] Test 08:58:12 of 2) [code = SHINGLES VACCINES (1 of 2)] Future Scheduled 2022-02-08 65+ P[facility]UMOCOCCAL [facility] Test 08:58:12 VACCINE (1 - PCV) [code = 65+ PNEUMOCOCCAL VACCINE (1 - PCV)] Future Scheduled 2022-02-08 COVID-19 VACCINE (3 - [facility] Test 08:58:12 Booster for Pfizer series) [code = COVID-19 VACCINE (3 - Booster for Pfizer series)] Future Scheduled 2022-02-08 INFLUENZA VACCINE [email or web address] Test 08:58:12 [code = INFLUENZA VACCINE] Future Scheduled 2022-02-07 HEPATITIS B VACCINES [facility] Test 10:48:43 (1 of 3 - 3-dose series) [code = HEPATITIS B VACCINES (1 of 3 - 3-dose series)] Future Scheduled 2022-02-07 Hepatitis C screening [facility] Test 10:48:43 (procedure) [code = [id number]] Future Scheduled 2022-02-07 COLONOSCOPY SCREENING [facility] Test 10:48:43 [code = COLONOSCOPY SCREENING] Future Scheduled 2022-02-07 SHINGLES VACCINES (1 [facility] Test 10:48:43 of 2) [code = SHINGLES VACCINES (1 of 2)] Future Scheduled 2022-02-07 65+ [facility]OCCAL [facility] 10:48:43 VACCINE (1 - PCV) [code = 65+ PNEUMOCOCCAL VACCINE (1 - PCV)] Future Scheduled 2022-02-07 COVID-19 VACCINE (3 - Me [facility] Test 10:48:43 Booster for Pfizer series) [code = COVID-19 VACCINE (3 - Booster for Pfizer series)] Future Scheduled 2022-02-07 INFLUENZA VACCINE [facility] Test 10:48:43 [code = INFLUENZA VACCINE] Future Scheduled 2022-02-02 HEPATITIS B VACCINES Met [facility] Test 16:39:32 (1 of 3 - 3-dose series) [code = HEPATITIS B VACCINES (1 of 3 - 3-dose series)] Future Scheduled 2022-02-02 Hepatitis C screening [facility] Test 16:39:32 (procedure) [code = [id number]] Future Scheduled 2022-02-02 COLONOSCOPY SCREENING [facility] Test 16:39:32 [code = COLONOSCOPY SCREENING] Future Scheduled 2022-02-02 SHINGLES VACCINES (1 [facility] Test 16:39:32 of 2) [code = SHINGLES VACCINES (1 of 2)] Future Scheduled 2022-02-02 65+ [facility] 16:39:32 VACCINE (1 - PCV) [code = 65+ PNEUMOCOCCAL VACCINE (1 - PCV)] Future Scheduled 2022-02-02 COVID-19 VACCINE (3 - Me [facility] Test 16:39:32 Booster for Pfizer series) [code = COVID-19 VACCINE (3 - Booster for Pfizer series)] Future Scheduled 2022-02-02 INFLUENZA VACCINE [email or web address] Test 16:39:32 [code = INFLUENZA VACCINE] Future Scheduled 2022-02-02 HEPATITIS B VACCINES Met [facility] Test 16:39:32 (1 of 3 - 3-dose series) [code = HEPATITIS B VACCINES (1 of 3 - 3-dose series)] Future Scheduled 2022-02-02 Hepatitis C screening [facility] Test 16:39:32 (procedure) [code = [id number]] Future Scheduled 2022-02-02 COLONOSCOPY SCREENING [facility] Test 16:39:32 [code = COLONOSCOPY SCREENING] Future Scheduled 2022-02-02 SHINGLES VACCINES (1 [facility] Test 16:39:32 of 2) [code = SHINGLES VACCINES (1 of 2)] Future Scheduled 2022-02-02 65+ [facility] 16:39:32 VACCINE (1 - PCV) [code = 65+ PNEUMOCOCCAL VACCINE (1 - PCV)] Future Scheduled 2022-02-02 COVID-19 VACCINE (3 - Me [facility] Test 16:39:32 Booster for Pfizer series) [code = COVID-19 VACCINE (3 - Booster for Pfizer series)] Future Scheduled 2022-02-02 INFLUENZA VACCINE [email or web address] Test 16:39:32 [code = INFLUENZA VACCINE] Future Scheduled 2022-02-02 HEPATITIS B VACCINES Met [facility] Test 16:39:32 (1 of 3 - 3-dose series) [code = HEPATITIS B VACCINES (1 of 3 - 3-dose series)] Future Scheduled 2022-02-02 Hepatitis C screening [facility] Test 16:39:32 (procedure) [code = [id number]] Future Scheduled 2022-02-02 COLONOSCOPY SCREENING [facility] Test 16:39:32 [code = COLONOSCOPY SCREENING] Future Scheduled 2022-02-02 SHINGLES VACCINES (1 [facility] Test 16:39:32 of 2) [code = SHINGLES VACCINES (1 of 2)] Future Scheduled 2022-02-02 65+ [facility] 16:39:32 VACCINE (1 - PCV) [code = 65+ PNEUMOCOCCAL VACCINE (1 - PCV)] Future Scheduled 2022-02-02 COVID-19 VACCINE (3 - [facility] Test 16:39:32 Booster for Pfizer series) [code = COVID-19 VACCINE (3 - Booster for Pfizer series)] Future Scheduled 2022-02-02 INFLUENZA VACCINE [email or web address] Test 16:39:32 [code = INFLUENZA VACCINE] Future Scheduled 2022-02-02 HEPATITIS B VACCINES Met [facility] Test 16:39:32 (1 of 3 - 3-dose series) [code = HEPATITIS B VACCINES (1 of 3 - 3-dose series)] Future Scheduled 2022-02-02 Hepatitis C screening [facility] Test 16:39:32 (procedure) [code = [id number]] Future Scheduled 2022-02-02 COLONOSCOPY SCREENING [facility] Test 16:39:32 [code = COLONOSCOPY SCREENING] Future Scheduled 2022-02-02 SHINGLES VACCINES (1 Met [facility] Test 16:39:32 of 2) [code = SHINGLES VACCINES (1 of 2)] Future Scheduled 2022-02-02 65[facility] 16:39:32 VACCINE (1 - PCV) [code = 65+ PNEUMOCOCCAL VACCINE (1 - PCV)] Future Scheduled 2022-02-02 COVID-19 VACCINE (3 - [facility] Test 16:39:32 Booster for Pfizer series) [code = COVID-19 VACCINE (3 - Booster for Pfizer series)] Future Scheduled 2022-02-02 INFLUENZA VACCINE [email or web address] Test 16:39:32 [code = INFLUENZA VACCINE] Future Scheduled 2022-01-29 HEPATITIS B VACCINES Met [facility] Test 09:22:42 (1 of 3 - 3-dose series) [code = HEPATITIS B VACCINES (1 of 3 - 3-dose series)] Future Scheduled 2022-01-29 Hepatitis C screening [facility] Test 09:22:42 (procedure) [code = [id number]] Future Scheduled 2022-01-29 COLONOSCOPY SCREENING [facility] Test 09:22:42 [code = COLONOSCOPY SCREENING] Future Scheduled 2022-01-29 SHINGLES VACCINES (1 [facility] Test 09:22:42 of 2) [code = SHINGLES VACCINES (1 of 2)] Future Scheduled 2022-01-29 65[facility] 09:22:42 VACCINE (1 - PCV) [code = 65+ PNEUMOCOCCAL VACCINE (1 - PCV)] Future Scheduled 2022-01-29 COVID-19 VACCINE (3 - [facility] Test 09:22:42 Booster for Pfizer series) [code = COVID-19 VACCINE (3 - Booster for Pfizer series)] Future Scheduled 2022-01-29 INFLUENZA VACCINE [email or web address] Test 09:22:42 [code = INFLUENZA VACCINE] Future Scheduled 2021-12-24 HEPATITIS B VACCINES Met [facility] Test 17:00:45 (1 of 3 - 3-dose series) [code = HEPATITIS B VACCINES (1 of 3 - 3-dose series)] Future Scheduled 2021-12-24 Hepatitis C screening [facility] Test 17:00:45 (procedure) [code = [id number]] Future Scheduled 2021-12-24 COLONOSCOPY SCREENING [facility] Test 17:00:45 [code = COLONOSCOPY SCREENING] Future Scheduled 2021-12-24 SHINGLES VACCINES (1 Met [facility] Test 17:00:45 of 2) [code = SHINGLES VACCINES (1 of 2)] Future Scheduled 2021-12-24 65+ [facility] 17:00:45 VACCINE (1 - PCV) [code = 65+ PNEUMOCOCCAL VACCINE (1 - PCV)] Future Scheduled 2021-12-24 COVID-19 VACCINE (3 - Me [facility] Test 17:00:45 Booster for Pfizer series) [code = COVID-19 VACCINE (3 - Booster for Pfizer series)] Future Scheduled 2021-12-24 INFLUENZA VACCINE [facility] 17:00:45 [code = INFLUENZA VACCINE] Future Scheduled 2021-11-18 INFLUENZA VACCINE (#1) [facility] Test 00:00:00 [code = INFLUENZA Medical Ce nter VACCINE (#1)] Future Scheduled 2021-11-18 INFLUENZA VACCINE (#1) [facility] 00:00:00 [code = INFLUENZA Medical Ce nter VACCINE (#1)] Future Scheduled 2021-11-18 INFLUENZA VACCINE (#1) [facility] 00:00:00 [code = INFLUENZA Medical Ce nter VACCINE (#1)] Future Scheduled 2021-11-18 INFLUENZA VACCINE (#1) [facility] 00:00:00 [code = INFLUENZA Medical Ce nter VACCINE (#1)] Future Scheduled 2021-11-18 INFLUENZA VACCINE (#1) [facility] 00:00:00 [code = INFLUENZA Medical Ce nter VACCINE (#1)] Future Scheduled 2021-11-18 INFLUENZA VACCINE (#1) [facility] 00:00:00 [code = INFLUENZA Medical Ce nter VACCINE (#1)] Future Scheduled 2021-11-18 INFLUENZA VACCINE (#1) [facility] 00:00:00 [code = INFLUENZA Medical Ce nter VACCINE (#1)] Future Scheduled 2021-11-18 INFLUENZA VACCINE (#1) [facility] 00:00:00 [code = INFLUENZA Medical Ce nter VACCINE (#1)] Future Scheduled 2021-11-18 INFLUENZA VACCINE (#1) [facility] 00:00:00 [code = INFLUENZA Medical Ce nter VACCINE (#1)] Future Scheduled 2021-11-18 INFLUENZA VACCINE (#1) [facility] 00:00:00 [code = INFLUENZA Medical Ce nter VACCINE (#1)] Future Scheduled 2021-11-18 INFLUENZA VACCINE (#1) [facility] 00:00:00 [code = INFLUENZA Medical Ce nter VACCINE (#1)] Future Scheduled 2021-11-18 INFLUENZA VACCINE (#1) [facility] 00:00:00 [code = INFLUENZA Medical Ce nter VACCINE (#1)] Future Scheduled 2021-11-18 INFLUENZA VACCINE (#1) [facility] 00:00:00 [code = INFLUENZA Medical Ce nter VACCINE (#1)] Future Scheduled 2021-11-18 INFLUENZA VACCINE (#1) [facility] 00:00:00 [code = INFLUENZA Medical Ce nter VACCINE (#1)] Future Scheduled 2021-11-18 INFLUENZA VACCINE (#1) [facility] 00:00:00 [code = INFLUENZA Medical Ce nter VACCINE (#1)] Future Scheduled 2021-11-18 INFLUENZA VACCINE (#1) [facility] 00:00:00 [code = INFLUENZA Medical Ce nter VACCINE (#1)] Future Scheduled 2021-11-18 INFLUENZA VACCINE (#1) [facility] 00:00:00 [code = INFLUENZA Medical Ce nter VACCINE (#1)] Future Scheduled 2021-11-18 INFLUENZA VACCINE (#1) [facility] 00:00:00 [code = INFLUENZA Medical Ce nter VACCINE (#1)] Future Scheduled 2021-04-21 65[facility] 00:17:20 VACCINE (1 of 2 - PPSV23) [code = 65+ PNEUMOCOCCAL VACCINE (1 of 2 - PPSV23)] Future Scheduled 2021-04-21 [facility]:20 (procedure) [code = [id number]] Future Scheduled 2021-04-21 [facility] PPSV23)] Future Scheduled 2021-04-21 Hepatitis C screening [facility] Test 00:17:20 (procedure) [code = [id number]] Future Scheduled 2021-04-21 COLONOSCOPY SCREENING [facility] Test 00:17:20 [code = COLONOSCOPY SCREENING] Future Scheduled 2021-04-21 SHINGLES [facility]ACCINES (#[facility]) [facility]:17:20 [code = SHINGLES VACCINES (#1)] Future Scheduled 2021-04-21 [facility]ZA [facility]ACCINE [facility] 00:17:20 [code = INFLUENZA VACCINE] Future Scheduled 2021-04-21 COVID-19 VACCINE (3 - [facility] Test 00:17:20 Booster for Pfizer series) [code = COVID-19 VACCINE (3 - Booster for Pfizer series)] Future Scheduled 2021-03-[address] [facility] Test 00:00:00 (12+) [code = Medical Center DEPRESSION SCREENING (12+)] Future Scheduled 2021-03-[address] F[address]ENING [facility] Test 00:00:00 [code = FALLS RISK Medical C enter SCREENING] Future Scheduled 2021-03-[address] [facility] Test 00:00:00 (12+) [code = Medical Center DEPRESSION SCREENING (12+)] Future Scheduled 2021-03-[address] SCREENING [facility] Test 00:00:00 [code = FALLS RISK Medical C enter SCREENING] Future Scheduled 2021-03-[address] [facility] Test 00:00:00 (12+) [code = Medical Center DEPRESSION SCREENING (12+)] Future Scheduled 2021-03-[address] SCREENING [facility] Test 00:00:00 [code = FALLS RISK Medical C enter SCREENING] Future Scheduled 2021-03-[address] [facility] Test 00:00:00 (12+) [code = Medical Center DEPRESSION SCREENING (12+)] Future Scheduled 2021-03-[address] SCREENING [facility] Test 00:00:00 [code = FALLS RISK Medical C enter SCREENING] Future Scheduled 2021-03-[address] [facility] Test 00:00:00 (12+) [code = Medical Center DEPRESSION SCREENING (12+)] Future Scheduled 2021-03-[address] SCREENING [facility] Test 00:00:00 [code = FALLS RISK Medical C enter SCREENING] Future Scheduled 2021-03-[address] [facility] Test 00:00:00 (12+) [code = Medical Center DEPRESSION SCREENING (12+)] Future Scheduled 2021-03-[address] SCREENING [facility] Test 00:00:00 [code = FALLS RISK Medical C enter SCREENING] Future Scheduled 2021-03-[address] [facility] Test 00:00:00 (12+) [code = Medical Center DEPRESSION SCREENING (12+)] Future Scheduled 2021-03-[address] SCREENING [facility] Test 00:00:00 [code = FALLS RISK Medical C enter SCREENING] Future Scheduled 2021-03-[address] [facility] Test 00:00:00 (12+) [code = Medical Center DEPRESSION SCREENING (12+)] Future Scheduled 2021-03-[address] SCREENING [facility] Test 00:00:00 [code = FALLS RISK Medical C enter SCREENING] Future Scheduled 2021-03-[address] [facility] Test 00:00:00 (12+) [code = Medical Center DEPRESSION SCREENING (12+)] Future Scheduled 2021-03-[address] SCREENING [facility] Test 00:00:00 [code = FALLS RISK Medical C enter SCREENING] Future Scheduled 2021-03-[address] [facility] Test 00:00:00 (12+) [code = Medical Center DEPRESSION SCREENING (12+)] Future Scheduled 2021-03-[address]K SCREENING [facility] Test 00:00:00 [code = FALLS RISK Medical C enter SCREENING] Future Scheduled 2021-03-[address] [facility] Test 00:00:00 (12+) [code = Medical Center DEPRESSION SCREENING (12+)] Future Scheduled 2021-03-[address] SCREENING [facility] Test 00:00:00 [code = FALLS RISK Medical C enter SCREENING] Future Scheduled 2021-03-[address] [facility] Test 00:00:00 (12+) [code = Medical Center DEPRESSION SCREENING (12+)] Future Scheduled 2021-03-20 [address]K SCREENING [facility] Test 00:00:00 [code = FALLS RISK Medical C enter SCREENING] Future Scheduled 2021-03-[address] [facility] Test 00:00:00 (12+) [code = Medical Center DEPRESSION SCREENING (12+)] Future Scheduled 2021-03-[address] SCREENING [facility] Test 00:00:00 [code = FALLS RISK Medical C enter SCREENING] Future Scheduled 2021-03-[address] [facility] Test 00:00:00 (12+) [code = Medical Center DEPRESSION SCREENING (12+)] Future Scheduled 2021-03-[address] SCREENING [facility] Test 00:00:00 [code = FALLS RISK Medical C enter SCREENING] Future Scheduled 2021-03-[address] [...] Medical Ce nter VACCINE (#1)] Future Scheduled 2020-10-[address] [facility] Test 00:00:00 Counseling and Medical Cente r Screening (12+) [code = Tobacco Cessation Counseling and Screening (12+)] Future Scheduled 2020-10-[address] [facility] Test 00:00:00 Counseling and Medical Cent[facility] r Screening (12+) [code = Tobacco Cessation Counseling and Screening (12+)] Future Scheduled 2020-10-[address] [facility] Test 00:00:00 Counseling and Medical Cent[facility] r Screening (12+) [code = Tobacco Cessation Counseling and Screening (12+)] Future Scheduled 2020-10-[address] [facility] Test 00:00:00 Counseling and Medical Cente r Screening (12+) [code = Tobacco Cessation Counseling and Screening (12+)] Future Scheduled 2020-10-[address] [facility] Test 00:00:00 Counseling and Medical Cent[facility] r Screening (12+) [code = Tobacco Cessation Counseling and Screening (12+)] Future Scheduled 2020-10-[address] [facility] Test 00:00:00 Counseling and Medical Cent[facility] r Screening (12+) [code = Tobacco Cessation Counseling and Screening (12+)] Future Scheduled 2020-10-[address] [facility] Test 00:00:00 Counseling and Medical Cent[facility] r Screening (12+) [code = Tobacco Cessation Counseling and Screening (12+)] Future Scheduled 2020-10-[address] [facility] Test 00:00:00 Counseling and Medical Cent[facility] r Screening (12+) [code = Tobacco Cessation Counseling and Screening (12+)] Future Scheduled 2020-10-[address] [facility] Test 00:00:00 Counseling and Medical Cent[facility] r Screening (12+) [code = Tobacco Cessation Counseling and Screening (12+)] Future Scheduled 2020-10-[address] [facility] Test 00:00:00 Counseling and Medical Cent[facility] Screening (12+) [code = Tobacco Cessation Counseling and Screening (12+)] Future Scheduled 2020-10-[address] [facility] Test 00:00:00 Counseling and Medical Cent[facility] r Screening (12+) [code = Tobacco Cessation Counseling and Screening (12+)] Future Scheduled 2020-10-[address] [facility] Test 00:00:00 Counseling and Medical Cent[facility] r Screening (12+) [code = Tobacco Cessation Counseling and Screening (12+)] Future Scheduled 2020-10-[address] [facility] Test 00:00:00 Counseling and Medical Cent[facility] Screening (12+) [code = Tobacco Cessation Counseling and Screening (12+)] Future Scheduled 2020-10-[address] [facility] Test 00:00:00 Counseling and Medical Cent[facility] r Screening (12+) [code = Tobacco Cessation Counseling and Screening (12+)] Future Scheduled 2020-10-[address] [facility] Test 00:00:00 Counseling and Medical Cent[facility] r Screening (12+) [code = Tobacco Cessation Counseling and Screening (12+)] Future Scheduled 2020-10-[address] [facility] Test 00:00:00 Counseling and Medical Cent[facility] r Screening (12+) [code = Tobacco Cessation Counseling and Screening (12+)] Future Scheduled 2020-10-[address] [facility] Test 00:00:00 Counseling and Medical Cent[facility] Screening (12+) [code = Tobacco Cessation Counseling and Screening (12+)] Future Scheduled 2020-10-[address] [facility] Test 00:00:00 Counseling and Medical Cent[facility] Screening (12+) [code = Tobacco Cessation Counseling and Screening (12+)] Future Scheduled 2020-03-[address] [...] 00:00:00 (1 - PCV) [code = Medical Ce nter PNEUMOCOCCAL 65+ YRS (1 - PCV)] Future Scheduled 2014 PNEUMOCOCCAL 65+ YRS [facility] Test 00:00:00 (1 - PCV) [code = Medical Ce nter PNEUMOCOCCAL 65+ YRS (1 - PCV)] Future Scheduled 2014 PNEUMOCOCCAL 65+ YRS [facility] Test 00:00:00 (1 - PCV) [code = Medical Ce nter PNEUMOCOCCAL 65+ YRS (1 - PCV)] Future Scheduled 2014 PNEUMOCOCCAL 65+ YRS [facility] Test 00:00:00 (1 - PCV) [code = Medical Ce nter PNEUMOCOCCAL 65+ YRS (1 - PCV)] Future Scheduled 2014 PNEUMOCOCCAL 65+ YRS [facility] Test 00:00:00 (1 of 1 - Medical Center [id number]) [code = PNEUMOCOCCAL 65+ YRS (1 of 1 - [id number])] Future Scheduled 2014 PNEUMOCOCCAL 65+ YRS [facility] Test 00:00:00 (1 - PCV) [code = Medical Ce nter PNEUMOCOCCAL 65+ YRS (1 - PCV)] Future Scheduled 2014 PNEUMOCOCCAL 65+ YRS [facility] Test 00:00:00 (1 - PCV) [code = Medical Ce nter PNEUMOCOCCAL 65+ YRS (1 - PCV)] Future Scheduled 2014 PNEUMOCOCCAL 65+ YRS [facility] Test 00:00:00 (1 - PCV) [code = Medical Ce nter PNEUMOCOCCAL 65+ YRS (1 - PCV)] Future Scheduled 2014 PNEUMOCOCCAL 65+ YRS [facility] Test 00:00:00 (1 - PCV) [code = Medical Ce nter PNEUMOCOCCAL 65+ YRS (1 - PCV)] Future Scheduled 2014 PNEUMOCOCCAL 65+ YRS [facility] Test 00:00:00 (1 - PCV) [code = Medical Ce nter PNEUMOCOCCAL 65+ YRS (1 - PCV)] Future Scheduled 2014 PNEUMOCOCCAL 65+ YRS [facility] Test 00:00:00 (1 - PCV) [code = Medical Ce nter PNEUMOCOCCAL 65+ YRS (1 - PCV)] Future Scheduled 2014 PNEUMOCOCCAL 65+ YRS [facility] Test 00:00:00 (1 - PCV) [code = Medical Ce nter PNEUMOCOCCAL 65+ YRS (1 - PCV)] Future Scheduled 2014 PNEUMOCOCCAL 65+ YRS [facility] Test 00:00:00 (1 - PCV) [code = Medical Ce nter PNEUMOCOCCAL 65+ YRS (1 - PCV)] Future Scheduled 2014 PNEUMOCOCCAL 65+ YRS [facility] Test 00:00:00 (1 of 1 - Medical Center [id number] PCV13) [code = PNEUMOCOCCAL 65+ YRS (1 of 1 - [id number])] Future Scheduled 2014 PNEUMOCOCCAL 65+ YRS [facility] Test 00:00:00 (1 - PCV) [code = Medical Ce nter PNEUMOCOCCAL 65+ YRS (1 - PCV)] Future Scheduled 2014 PNEUMOCOCCAL 65+ YRS [facility] Test 00:00:00 (1 - PCV) [code = Medical Ce nter PNEUMOCOCCAL 65+ YRS (1 - PCV)] Future Scheduled 2014 PNEUMOCOCCAL 65+ YRS [facility] Test 00:00:00 (1 - PCV) [code = Medical Ce nter PNEUMOCOCCAL 65+ YRS (1 - PCV)] Future Scheduled 2014 PNEUMOCOCCAL 65+ YRS [facility] Test 00:00:00 (1 - PCV) [code = Medical Ce nter PNEUMOCOCCAL 65+ YRS (1 - PCV)] Future Scheduled 2014 PNEUMOCOCCAL 65+ YRS [facility] Test 00:00:00 (1 - PCV) [code = Medical Ce nter PNEUMOCOCCAL 65+ YRS (1 - PCV)] Future Scheduled 2014 PNEUMOCOCCAL 65+ YRS [facility] Test 00:00:00 (1 - PCV) [code = Medical Ce nter PNEUMOCOCCAL 65+ YRS (1 - PCV)] Future Scheduled 2014 PNEUMOCOCCAL 65+ YRS [facility] Test 00:00:00 (1 - PCV) [code = Medical Ce nter PNEUMOCOCCAL 65+ YRS (1 - PCV)] Future [...] Medical [facility] VACCINE (#1)] Future Scheduled 1950-02-12 COVID-19 VACCINE (#1) [facility]:00 [code = COVID-[address] VACCINE (#1)] Future Scheduled 1950-02-12 COVID-19 VACCINE (#1) [facility] 00:00:00 [code = COVID-[address] VACCINE (#1)] Future Scheduled 1950-02-12 COVID-19 VACCINE (#1) [facility] 00:00:00 [code = COVID-[address] VACCINE (#1)] Future Scheduled 1950-02-12 COVID-19 VACCINE (#1) [facility] 00:00:00 [code = COVID-[address] VACCINE (#1)] Future Scheduled 1950-02-12 COVID-19 VACCINE (#1) [facility] 00:00:00 [code = COVID-[address] VACCINE (#1)] Future Scheduled 1950-02-12 COVID-19 VACCINE (#1) [facility] 00:00:00 [code = COVID-[address] VACCINE (#1)] Future Scheduled 1950-02-12 COVID-19 VACCINE (#1) [facility] 00:00:00 [code = COVID-[address] VACCINE (#1)] Future Scheduled 1950-02-12 COVID-19 VACCINE (#1) [facility] 00:00:00 [code = COVID-[address] VACCINE (#1)] Future Scheduled 1950-02-12 COVID-19 VACCINE (#1) [facility] 00:00:00 [code = COVID-[address] VACCINE (#1)] Future Scheduled 1950-02-12 COVID-19 VACCINE (#1) [facility] 00:00:00 [code = COVID-[address] VACCINE (#1)] Future Scheduled 1950-02-12 COVID-19 VACCINE (#1) [facility] 00:00:00 [code = COVID-[address] VACCINE (#1)] Future Scheduled 1950-02-12 COVID-19 VACCINE (#1) [facility] 00:00:00 [code = COVID-[address] VACCINE (#1)] Future Scheduled 1950-02-12 COVID-19 VACCINE (#1) [facility] 00:00:00 [code = COVID-[address] VACCINE (#1)] Future Scheduled 1950-02-12 COVID-19 VACCINE (#1) [facility] 00:00:00 [code = COVID-[address] VACCINE (#1)] Future Scheduled 1950-02-12 COVID-19 VACCINE (#1) [facility] 00:00:00 [code = COVID-[address] VACCINE (#1)] Future Scheduled 1950-02-12 COVID-19 VACCINE (#1) [facility] 00:00:00 [code = COVID-[address] VACCINE (#1)] Future Scheduled 1950-02-12 COVID-19 VACCINE (#1) [facility] 00:00:00 [code = COVID-[address] VACCINE (#1)] Future Scheduled 1950-02-12 COVID-19 VACCINE (#1) [facility] 00:00:00 [code = COVID-[address] VACCINE (#1)] Future Scheduled [address] [facility] 00:00:00 (combo) [code = CT Medical C enter Colonography (combo)] Future Scheduled [address] [facility] ne[facility] of [facility] Center colon (procedure) [code = [id number]] Future Scheduled [address] [facility] 00:[facility] colon (procedure) [code = [id number]] Future Scheduled [address] [facility] 00:00:00 [facility] Center colon (procedure) [code = [id number]] Future Scheduled [address] [facility] 00:[facility] malignant ne[facility] of [facility] Center colon (procedure) [code = [id number]] Future Scheduled 1949 Sigmoidoscopy [facility]code [facility]] Medical Cent[facility] r Future Scheduled [address] [facility] 00:00:00 (combo) [code = CT Medical C enter Colonography (combo)] Future Scheduled [address] [facility] 00:00:00 [facility] Center colon (procedure) [code = 719655702] Future Scheduled [address] [facility] (procedure) [code = 341086859] Future Scheduled [address] [facility] 00:[facility]:00 [facility] (procedure) [code = 405796921] Future Scheduled [address] [facility] 00:00:00 [facility] (procedure) [code = 987529679] Future Scheduled 1949 Sigmoidoscopy [facility]] Medical [facility] Future Scheduled [address] [facility] 00:00:00 [facility] colon (procedure) [code = 100391917] Future Scheduled [address] [facility] 00:00:00 (combo) [code = CT Medical C enter Colonography (combo)] Future Scheduled [address] [facility] 00:00:00 [facility] (procedure) [code = 167659181] Future Scheduled [address] [facility] 00:00:00 [facility] colon (procedure) [code = 268460403] Future Scheduled [address] [facility] 00:00:00 [facility] colon (procedure) [code = 916762072] Future Scheduled [address] [facility] 00:00:00 [facility] colon (procedure) [code = 978338578] Future Scheduled 1949 Sigmoidoscopy [facility] 00[facility]] Medical [facility] Future Scheduled [address] [facility] 00:00:00 (combo) [code = CT Medical C enter Colonography (combo)] Future Scheduled [address] [facility] 00:00:00 [facility] (procedure) [code = 844557394] Future Scheduled [address] [facility] 00:00:00 [facility] (procedure) [code = 830862483] Future Scheduled [address] [facility] 00:00:00 [facility] (procedure) [code = 696235142] Future Scheduled [address] [facility] 00:00:00 [facility] colon (procedure) [code = 803160985] Future Scheduled 1949 Sigmoidoscopy [facility]] [facility] r Future Scheduled [address] [facility] 00:00:00 (combo) [code = CT Medical C enter Colonography (combo)] Future Scheduled [address] [facility] 00:00:00 [facility] colon (procedure) [code = 952412596] Future Scheduled [address] [facility] 00:00:00 [facility] colon (procedure) [code = 793779026] Future Scheduled [address] [facility] 00:00:00 [facility] (procedure) [code = 107725278] Future Scheduled [address] [facility] 00:00:00 [facility] colon (procedure) [code = 773580536] Future Scheduled 1949 Sigmoidoscopy [facility] [address] [facility] 00:00:00 (combo) [code = CT Medical C enter Colonography (combo)] Future Scheduled [address] [facility] 00:00:00 [facility] colon (procedure) [code = 889193756] Future Scheduled [address] [facility] 00:00:00 [facility] colon (procedure) [code = 012731996] Future Scheduled [address] [facility] 00:00:00 [facility] colon (procedure) [code = 340773472] Future Scheduled [address] [facility] 00:00:00 [facility] colon (procedure) [code = 947409628] Future Scheduled 1949 Sigmoidoscopy [facility]] [facility] Future Scheduled [address] [facility] 00:00:00 (combo) [code = CT Medical C enter Colonography (combo)] Future Scheduled [address] [facility] 00:00:00 [facility] (procedure) [code = 381976608] Future Scheduled [address] [facility] 00:00:00 [facility] (procedure) [code = 535728494] Future Scheduled [address] [facility] 00:00:00 [facility] colon (procedure) [code = 562075273] Future Scheduled [address] [facility] 00:00:00 [facility] colon (procedure) [code = 650540267] Future Scheduled 1949 Sigmoidoscopy [facility]] [facility] Future Scheduled [address] [facility] 00:00:00 (combo) [code = CT Medical C enter Colonography (combo)] Future Scheduled [address] [facility] 00:00:00 [facility] colon (procedure) [code = 303706219] Future Scheduled [address] [facility] 00:00:00 [facility] colon (procedure) [code = 857490043] Future Scheduled [address] [facility] 00:00:00 [facility] colon (procedure) [code = 866214043] Future Scheduled [address] [facility] 00:00:00 [facility] colon (procedure) [code = 523015107] Future Scheduled 1949 Sigmoidoscopy [facility]] [facility] Future Scheduled [address] [facility] 00:00:00 (combo) [code = CT Medical C enter Colonography (combo)] Future Scheduled [address] [facility] 00:00:00 [facility] colon (procedure) [code = 548738871] Future Scheduled [address] [facility] 00:00:00 [facility] colon (procedure) [code = 056366164] Future Scheduled [address] [facility] 00:00:00 [facility] colon (procedure) [code = 645535597] Future Scheduled [address] [facility] 00:00:00 [facility] colon (procedure) [code = 634037406] Future Scheduled 1949 Sigmoidoscopy [facility]] [facility] Future Scheduled [address] [facility] 00:00:00 (combo) [code = CT Medical C enter Colonography (combo)] Future Scheduled [address] [facility] 00:00:00 [facility] colon (procedure) [code = 628491064] Future Scheduled [address] [facility] 00:00:00 [facility] colon (procedure) [code = 858889082] Future Scheduled [address] [facility] 00:00:00 [facility] colon (procedure) [code = 269514179] Future Scheduled [address] [facility] 00:00:00 [facility] colon (procedure) [code = 224411024] Future Scheduled 1949 Sigmoidoscopy [facility]] [facility] Future Scheduled [address] [facility] 00:00:00 [facility] colon (procedure) [code = 504177043] Future Scheduled [address] [facility] 00:00:00 (combo) [code = CT Medical C enter Colonography (combo)] Future Scheduled [address] [facility] 00:00:00 [facility] colon (procedure) [code = 769920369] Future Scheduled [address] [facility] 00:00:00 [facility] colon (procedure) [code = 849221943] Future Scheduled [address] [facility] 00:00:00 [facility] colon (procedure) [code = 400577652] Future Scheduled [address] [facility] 00:00:00 [facility] colon (procedure) [code = 916646866] Future Scheduled 1949 Sigmoidoscopy [facility]] [facility] Future Scheduled [address] [facility] 00:00:00 (combo) [code = CT Medical C enter Colonography (combo)] Future Scheduled [address] [facility] 00:00:00 [facility] (procedure) [code = 959886404] Future Scheduled [address] [facility] 00:00:00 [facility] (procedure) [code = 433326020] Future Scheduled [address] [facility] 00:00:00 [facility] colon (procedure) [code = 970219931] Future Scheduled [address] [facility] 00:00:00 [facility] colon (procedure) [code = 685656180] Future Scheduled 1949 Sigmoidoscopy [facility]] [facility] Future Scheduled [address] [facility] 00:00:00 (combo) [code = CT Medical C enter Colonography (combo)] Future Scheduled [address] [facility] 00:00:00 [facility] colon (procedure) [code = 211116680] Future Scheduled [address] [facility] 00:00:00 [facility] colon (procedure) [code = 303099715] Future Scheduled [address] [facility] 00:00:00 [facility] colon (procedure) [code = 244978935] Future Scheduled [address] [facility] 00:00:00 [facility] colon (procedure) [code = 589218623] Future Scheduled 1949 Sigmoidoscopy [facility]] [facility] Future Scheduled [address] [facility] 00:00:00 (combo) [code = CT Medical C enter Colonography (combo)] Future Scheduled [address] [facility] 00:00:00 [facility] colon (procedure) [code = 502084216] Future Scheduled [address] [facility] 00:00:00 [facility] colon (procedure) [code = 506438017] Future Scheduled [address] [facility] 00:00:00 [facility] colon (procedure) [code = 026044590] Future Scheduled [address] [facility] 00:00:00 [facility] colon (procedure) [code = 781487028] Future Scheduled 1949 Sigmoidoscopy [facility]] [facility] Future Scheduled [address] [facility] 00:00:00 (combo) [code = CT Medical C enter Colonography (combo)] Future Scheduled [address] [facility] 00:00:00 [facility] colon (procedure) [code = 514079866] Future Scheduled [address] [facility] 00:00:00 [facility] colon (procedure) [code = 245166440] Future Scheduled [address] [facility] 00:00:00 [facility] colon (procedure) [code = 648035970] Future Scheduled [address] [facility] 00:00:00 [facility] colon (procedure) [code = 723914154] Future Scheduled 1949 Sigmoidoscopy [facility]] [facility] Future Scheduled [address] [facility] 00:00:00 (combo) [code = CT Medical C enter Colonography (combo)] Future Scheduled [address] [facility] 00:00:00 [facility] colon (procedure) [code = 318918187] Future Scheduled [address] [facility] 00:00:00 [facility] colon (procedure) [code = 849671557] Future Scheduled [address] [facility] 00:00:00 [facility] colon (procedure) [code = 927325889] Future Scheduled [address] [facility] 00:00:00 [facility] colon (procedure) [code = 911154982] Future Scheduled 1949 Sigmoidoscopy [facility]] [facility] Future Scheduled [address] [facility] 00:00:00 (combo) [code = CT Medical C enter Colonography (combo)] Future Scheduled [address] [facility] 00:00:00 [facility] colon (procedure) [code = 228619777] Future Scheduled [address] [facility] 00:00:00 [facility] colon (procedure) [code = 789603083] Future Scheduled [address] [facility] 00:00:00 [facility] colon (procedure) [code = 259178538] Future Scheduled [address] [facility] 00:00:00 [facility] colon (procedure) [code = 671767268] Future Scheduled 1949 Sigmoidoscopy [facility]] [facility] Future Scheduled [address] [facility] 00:00:00 (combo) [code = CT Medical C enter Colonography (combo)] Future Scheduled [address] [facility] 00:00:00 [facility] colon (procedure) [code = 120218628] Future Scheduled [address] [facility] 00:00:00 [facility] colon (procedure) [code = 914722602] Future Scheduled [address] [facility] 00:00:00 [facility] colon (procedure) [code = 588768198] Future Scheduled [address] [facility] 00:00:00 [facility] colon (procedure) [code = 770115417] Future Scheduled 1949 Sigmoidoscopy [facility]] [facility] Future Scheduled [address] [facility] 00:00:00 (combo) [code = CT Medical C enter Colonography (combo)] Future Scheduled [address] [facility] 00:00:00 [facility] colon (procedure) [code = 283033609] Future Scheduled [address] [facility] 00:00:00 [facility] colon (procedure) [code = 910860941] Future Scheduled [address] [facility] 00:00:00 [facility] colon (procedure) [code = 340492682] Future Scheduled [address] [facility] 00:00:00 [facility] colon (procedure) [code = 902897714] Future Scheduled 1949 Sigmoidoscopy [facility]] Medical Cent[facility] r Encounters Start End Encounter Admission Attending Care Care Encounter Source Date/Time Date/Time Type Type Clinicians Facility Department ID 2022-09-22 Outpatient [facility] [id number] [place] 21:12:19 [id number] [facility] 2022-02-17 Outpatient [facility] [id number] [place] 16:19:33 [id number] [facility] 2022-02-14 Outpatient [facility] [id number] [place] 11:11:26 [id number] [facility] 2020-12-23 Outpatient JEFFERSON BRAGG [facility] Surgery [id number] [facility] 02:00:22 2022-07-13 2022-07-13 Orders Provider, 1.2.840.1 [id number] [facility] 00:00:00 00:00:00 Only Unknown 59516.1.[address] 3.430.2.7 Hospit a .3.310053 l .8 2022-02-02 2022-02-08 Inpatient [facility] [id number] [facility] 22:22:00 18:45:00 [facility] 2022-02-02 2022-02-02 Outpatient [facility] [id number] [place] 22:15:[place] 22:15:00 [facility] 2022-01-26 2022-01-26 Transcribe Bindal, 1.2.840.1 [id number] [facility] 00:00:00 00:00:00 Orders Arron Tyson 58023.1.[address] 3.430.2.7 Hospit a .3.627627 l .8 2022-01-262022-01-26 Transcribe Bindal, 1.2.840.1 [id number] [facility] 00:00:00 00:00:00 Orders Arron Tyson 20068.1.[address] 3.430.2.7 Hospit a .3.831224 l .8 2022-01-17 2022-01-17 Transcribe Bindal, 1.2.840.1 [id number] [id number] [facility]i 00:00:00 00:00:00 Orders Arron Tyson 82821.1.[address] 3.430.2.7 Hospit a .3.885071 l .8 2022-01-17 2022-01-17 Transcribe Bindal, 1.2.840.1 [id number] [id number] [facility] 00:00:00 00:00:00 Orders Arron Tyson 54301.1.[address] 3.430.2.7 Hospit a .3.821852 l .8 2022-01-04 2022-01-04 Outpatient [facility] [id number] [facility] 13:14:00 13:14:00 [id number] 2021-10-12 2021-10-12 Clinical 1.2.840.1 [id number] [facility]i 14:00:00 14:29:[address] 3.430.2.7 Hospit a .3.241569 l .8 2021-10-12 2021-10-12 Travel 1.2.840.1 1.2.961.713 [id number] [facility]i 00:00:00 00:00:[address] 3.430.2.7 0.2.7.3.698 Ho spita .3.225969 084.8 l .8 2021-10-04 2021-10-04 Telephone Khan, 1.2.840.1 [id number] [facility] 00:00:00 00:00:[address] 3.430.2.7 Hospit a .3.696393 l .8 2021-09-21 2021-09-29 Hospital Kd Ramon Lisa 1.2.840.1 [id number] Methodi 10:38:00 18:12:00 Encounter Shree Koroma Sidney 02387.1.[address] Sandra, Iti 3.430.2.7 Hos efren .3.059362 l .8 2021-09-28 2021-09-28 Surgery [facility], 1.2.840.1 [id number] Methodi 12:00:00 13:35:[address] 3.430.2.7 Hospit a .3.624099 l .8 2021-09-22 2021-09-22 Documentat Provider, 1.2.840.1 [id number] Methodi 00:00:00 00:00:00 ion Unknown 56159.1.[address] 3.430.2.7 Hospit a .3.806974 l .8 2021-09-22 2021-09-22 Orders Radhames, 1.2.840.1 [id number] [facility]i 00:00:00 00:00:00 Only Maite 99478.1.[address] 3.430.2.7 Hospit a .3.313222 l .8 2021-09-21 2021-09-21 Travel 1.2.840.1 1.2.487.622 [id number] [id number] Methodi 00:00:00 00:00:[address] 3.430.2.7 0.2.7.3.698 Ho spita .3.543160 084.8 l .8 2021-03-03 2021-03-03 Refill [place], 1.2.840.1 [id number] 0690 Methodi 00:00:00 00:00:[address] 3.430.2.7 Hospit a .3.277756 l .8 2020-07-20 2020-07-20 Refill Desi, 1.2.840.1 [id number] [facility]i 00:00:00 00:00:00 [address]rasqu[address] 3.430.2.7 Hospit a .3.708322 l .8 2020-06-11 2020-06-11 Transition Yadiel Patricia 1.2.840.114 [id number] [id number] [facility] 00:00:00 00:00:00 of Care Teagan Avendaño 350.1.13.10 [place] [phone] [facility] [address] 2020-06-09 2020-06-09 Orders Doctor JEFFERSON 1.2.840.114 [id number] [facility] 00:00:00 00:00:00 Only Unassigned, JUDITH 350.1.13.10 ity of [place] [facility] 4.2.7.2.686 Roger as [phone] [facility] 00[address] Branch 2020-06-08 2020-06-08 Transition Yadiel Patricia 1.2.840.114 [id number] [facility] 00:00:00 00:00:00 of Care Teagan Avendaño 350.1.13.10 [place] [id number] [facility] [address] 2020-06-05 2020-06-06 Outpatient X DEEP RUST ANIL [id number] [facility] 21:29:00 14:10:00 STONE leung of [facility] 2020-06-05 2020-06-06 Emergency Hamzah Barr RUST 1.2.840. 114 [id number] Univers 21:29:00 14:10:00 Stone Adame 350.1.13.10 ity [place] [id number] [facility] 080 Branch 2020-05-17 2020-05-17 Clinical Ciro 1.2.840.1 [id number] Methodi 16:49:22 16:52:11 Support Demetrio 46818.1.[address] P. 3.430.2.7 Hospit a .3.202324 l .8 2020-04-30 2020-04-30 Telemedici Desi, 1.2.840.1 [id number] [id number] Methodi 09:41:31 09:51:08 tosin Carrasquillo 86157.1.[address] 3.430.2.7 Hospit a .3.670963 l .8 2020-04-26 2020-04-26 Clinical 1.2.840.1 [id number] [facility] 16:28:39 16:43:[address] 3.430.2.7 Hospit a .3.398200 l .8 2020-04-26 2020-04-26 Travel 1.2.840.1 1.2.742.222 0802 [id number] [facility]i 00:00:00 00:00:[address] 3.430.2.7 0.2.7.3.698 Ho spita .3.977860 084.8 l .8 2020-03-03 2020-03-03 Outpatient JEFFERSON BRAGG [facility] [id number] [place] 00:00:00 00:00:[address] 2020-02-26 2020-02-26 Outpatient STEFANO, [facility] [id number] [place] 00:00:00 00:00:00 SAMREEN [address] 2020-02-19 2020-02-19 Outpatient GISELA, [facility] [id number] [place] 00:00:00 00:00:00 JOCELYN [address] 2020-02-19 2020-02-19 Outpatient GISELA, [facility] [id number] [place] 00:00:00 00:00:00 JOCELYN [address] 2020-02-19 2020-02-19 Outpatient GISELA, [facility] [id number] [place] 00:00:00 00:00:00 JOCELYN [address] 2019-12-25 2019-12-25 Outpatient YA, [facility] [id number] 535 [place] 00:00:00 00:00:00 GILLES [address] 2019-12-17 2019-12-17 Outpatient JEFFERSON BRAGG [facility] [id number] [place] 00:00:00 00:00:[address] 2019-11-19 2019-11-19 Outpatient JEFFERSON BRAGG [facility] [id number] [place] 00:00:00 00:00:[address] 2019-10-30 2019-10-30 Outpatient EL [facility] [id number] [facility] 00:00:00 00:00:00 2019-10-03 2019-10-03 Outpatient JEFFERSON BRAGG [facility] [id number] [place] 00:00:00 00:00:[address] 2019-10-03 2019-10-03 Outpatient JEFFERSON BRAGG [facility] [id number] [place] 00:00:00 00:00:[address] 2019-10-03 2019-10-03 Outpatient JEFFERSON BRAGG [facility] [id number] [place] 00:00:00 00:00:[address] 2019-08-22 2019-08-22 Outpatient SHKEDY [facility] [id number] [place] 00:00:00 00:00:00 SAMREEN [address] 2019-08-22 2019-08-22 Outpatient MARIMARHO [facility] [id number] [place] 00:00:00 00:00:00 GILLES [address] 2019-08-16 2019-08-16 Outpatient GISELA, [facility] [id number] 112 [place] 00:00:00 00:00:00 JOCELYN [address] 2019-08-16 2019-08-16 Outpatient GISELA, [facility] [id number] 112 [place] 00:00:00 00:00:00 JOCELYN [address] 2019-07-19 2019-07-19 Outpatient YALTHO, [facility] [id number] 246 [place] 00:00:00 00:00:00 GILLES [address] 2019-05-03 2019-05-03 Outpatient YALTHO, [facility] [id number] 393 [place] 00:00:00 00:00:00 GILLES [address] 2019-05-03 2019-05-03 Outpatient YALTHO, [facility] [id number] 393 [place] 00:00:00 00:00:00 GILLES [address] 2019-03-09 2019-03-09 Outpatient GISELA, [facility] [id number] 924 [place] 00:00:00 00:00:00 JOCELYN [address] 2019-02-25 2019-02-25 Outpatient GISELA, [facility] [id number] 924 [place] 00:00:00 00:00:00 JOCELYN [address] 2019-02-25 2019-02-25 Outpatient GISELA, [facility] [id number] 924 [place] 00:00:00 00:00:00 JOCELYN [address] 2019-01-17 2019-01-17 Outpatient SHKEDY, [facility] [id number] 909 [place] 00:00:00 00:00:00 SAMREEN [address] 2018-12-18 2018-12-18 Outpatient SHKEDY, [facility] [id number] 925 [place] 00:00:00 00:00:00 SAMREEN [address] 2018-12-06 2018-12-06 Outpatient SHKEDY, [facility] [id number] 826 [place] 00:00:00 00:00:00 SAMREEN [address] 2018-12-04 2018-12-04 Outpatient SHKEDY, [facility] [id number] 799 [place] 00:00:00 00:00:00 SAMREEN [address] 2018-11-30 2018-11-30 Outpatient SHKEDY, [facility] [id number] 381 [place] 00:00:00 00:00:00 SAMREEN [address] 2018-11-28 2018-11-28 Outpatient SHKEDY, [facility] [id number] 377 [place] 00:00:00 00:00:00 SAMREEN [address] 2018-11-26 2018-11-27 Outpatient SHKEDY, [facility] [id number] 460 [place] 00:00:00 00:00:00 SAMREEN [address] 2018-11-26 2018-11-26 Outpatient SHKEDY, [facility] [id number] 375 [place] 00:00:00 00:00:00 SAMREEN [address] Results Test Description Test Time Test Comments Results Result Comments Source RAD ONC COURSE SUMMARY 2022-07-13 17:53:10 Test Item Value Reference Range Interpretation Comme nts Course ID (test code = 5706) C1 Course Start Date (test code = 5707) 2018-11-22 @16:32 Treatment Elapsed Days (test code = 5709) 10 Treatment Dates (test code = 5685) Course End Date: 2018-12-06 @12:52First Treatment Date: 2018-11-26 @13:49Last Treatment Date: 2018-12-06 @13:31 Reference Point ID (test code = 5710) Iso_check Dosage Given to Date in Gy (test code = 46.717480 8757) Plan ID (test code = 5713) SBRT_Spine Plan Name (test code = 5714) SBRT_Spine Fractions Treated to Date (test code = 5 of 5 5715) Prescribed Dose Per Fraction in Gy (test 8 code = 5716) Prescription Dose in cGy (test code = 4000 5717) [facility] Pre/Post [id number] 13:15:02 Test Item Value Reference Range Interpretation Comments Ventricular rate (test code = 253) Atrial rate (test code = 255) DC interval (test code = 266) QRSD interval [...] Courtney MD (2024) on 10/01/2021 8:15:[address] [facility] Pre/Post [id number] 13:15:02 Test Item Value Reference Range Interpretation Comments Ventricular rate (test code = 253) Atrial rate (test code = 255) DC interval (test code = 266) QRSD interval [...] Courtney MD (2024) on 10/01/2021 8:15:[address] 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 Pre/Post [id number] 13:15:02 Test Item Value Reference Range Interpretation Comments Ventricular rate (test code = 253) Atrial rate (test code = 255) DC interval (test code = 266) QRSD interval [...] Courtney MD (2024) on 10/01/2021 8:15:[address] [facility] Pre/Post [id number] 13:15:02 Test Item Value Reference Range Interpretation Comments Ventricular rate (test code = 253) Atrial rate (test code = 255) DC interval (test code = 266) QRSD interval [...] Courtney MD (2024) on 10/01/2021 8:15:[address] [facility] Pre/Post [id number] 13:15:02 Test Item Value Reference Range Interpretation Comments Ventricular rate (test code = 253) Atrial rate (test code = 255) DC interval (test code = 266) QRSD interval [...] Courtney MD (2024) on 10/01/2021 8:15:[address] [facility] Pre/Post [id number] 13:15:02 Test Item Value Reference Range Interpretation Comments Ventricular rate (test code = 253) Atrial rate (test code = 255) DC interval (test code = 266) QRSD interval [...] Courtney MD (2024) on 10/01/2021 8:15:[address] [facility] Pre/Post [id number] 13:15:02 Test Item Value Reference Range Interpretation Comments Ventricular rate (test code = 253) Atrial rate (test code = 255) DC interval (test code = 266) QRSD interval [...] Courtney MD (2024) on 10/01/2021 8:15:[address] [facility] Pre/Post [id number] 13:15:02 Test Item Value Reference Range Interpretation Comments Ventricular rate (test code = 253) Atrial rate (test code = 255) DC interval (test code = 266) QRSD interval [...] Courtney MD (2024) on 10/01/2021 8:15:[address] [facility] Pre/Post [id number] 13:15:02 Test Item Value Reference Range Interpretation Comments Ventricular rate (test code = 253) Atrial rate (test code = 255) DC interval (test code = 266) QRSD interval [...] Courtney MD (2024) on 10/01/2021 8:15:[address] [facility] Pre/Post [id number] 13:15:02 Test Item Value Reference Range Interpretation Comments Ventricular rate (test code = 253) Atrial rate (test code = 255) DC interval (test code = 266) QRSD interval [...] Courtney MD (2024) on 10/01/2021 8:15:[address] [facility] Pre/Post [id number] 13:15:02 Test Item Value Reference Range Interpretation Comments Ventricular rate (test code = 253) Atrial rate (test code = 255) DC interval (test code = 266) QRSD interval [...] Courtney MD (2024) on 10/01/2021 8:15:[address] [facility] Pre/Post [id number] 13:15:02 Test Item Value Reference Range Interpretation Comments Ventricular rate (test code = 253) Atrial rate (test code = 255) DC interval (test code = 266) QRSD interval [...] Courtney MD (2024) on 10/01/2021 8:15:[address] [facility] Pre/Post [id number] 13:15:02 Test Item Value Reference Range Interpretation Comments Ventricular rate (test code = 253) Atrial rate (test code = 255) DC interval (test code = 266) QRSD interval [...] Courtney MD (2024) on 10/01/2021 8:15:[address] [facility] Pre/Post [id number] 13:15:02 Test Item Value Reference Range Interpretation Comments Ventricular rate (test code = 253) Atrial rate (test code = 255) DC interval (test code = 266) QRSD interval [...] Courtney MD (2024) on 10/01/2021 8:15:[address] [facility] Pre/Post [id number] 13:15:02 Test Item Value Reference Range Interpretation Comments Ventricular rate (test code = 253) Atrial rate (test code = 255) DC interval (test code = 266) QRSD interval [...] Courtney MD (2024) on 10/01/2021 8:15:[address] [facility] Pre/Post [id number] 13:15:02 Test Item Value Reference Range Interpretation Comments Ventricular rate (test code = 253) Atrial rate (test code = 255) DC interval (test code = 266) QRSD interval [...] or before 08-MAR-2010)-Electron ically Signed By Chris Coutrney MD (2024) on 10/01/2021 8:15:[address] [facility] Pre/Post [id number] 13:15:02 Test Item Value Reference Range Interpretation Comments Ventricular rate (test code = 253) Atrial rate (test code = 255) DC interval (test code = 266) QRSD interval [...] Courtney MD (2024) on 10/01/2021 8:15:00 AM [facility]2022-07-13 17:27:00 Test Item Value Reference Range Interpretation Comments POC glucose (test code 225 mg/dL 65-99 H Opera tor Name: = 76668-9) Compa oakes ID: [id number] able: RN Notified Lab Interpretation Abnormal (test code = 86163-2) [facility] [id number] 17:27:00 Test Item Value Reference Range Interpretation Comments POC glucose (test code 225 mg/dL 65-99 H Opera tor Name: = 41692-6) Compa oakes ID: [id number] able: RN Notified Lab Interpretation Abnormal (test code = 95938-1) [facility]2022-07-13 17:27:00 Test Item Value Reference Range Interpretation Comments POC glucose (test code 225 mg/dL 65-99 H Opera tor Name: = 62038-6) Compa oakes ID: [id number] able: RN Notified Lab Interpretation Abnormal (test code = 81623-6) [facility]2022-07-13 17:27:00 Test Item Value Reference Range Interpretation Comments POC glucose (test code 225 mg/dL 65-99 H Opera tor Name: = 55069-3) Compa oakes ID: [id number] able: RN Notified Lab Interpretation Abnormal (test code = 93742-8) [facility]2022-07-13 17:27:00 Test Item Value Reference Range Interpretation Comments POC glucose (test code 225 mg/dL 65-99 H Opera tor Name: = 96626-8) Compa oakes ID: [id number] able: RN Notified Lab Interpretation Abnormal (test code = 88934-1) [facility]2022-07-13 17:27:00 Test Item Value Reference Range Interpretation Comments POC glucose (test code 225 mg/dL 65-99 H Opera tor Name: = 51738-8) Compa oakes ID: [id number] able: RN Notified Lab Interpretation Abnormal (test code = 85420-6) [facility]2022-07-13 17:27:00 Test Item Value Reference Range Interpretation Comments POC glucose (test code 225 mg/dL 65-99 H Opera tor Name: = 27131-0) Compa oakes ID: [id number] able: RN Notified Lab Interpretation Abnormal (test code = 72200-3) [facility]2022-07-13 17:27:00 Test Item Value Reference Range Interpretation Comments POC glucose (test code 225 mg/dL 65-99 H Opera tor Name: = 59452-6) Compa oakes ID: [id number] able: RN Notified Lab Interpretation Abnormal (test code = 63729-1) [place] [id number] 17:27:00 Test Item Value Reference Range Interpretation Comments POC glucose (test code 225 mg/dL 65-99 H Opera tor Name: = 34947-4) Compa oakes ID: [id number] able: RN Notified Lab Interpretation Abnormal (test code = 85244-9) [facility]2022-07-13 17:27:00 Test Item Value Reference Range Interpretation Comments POC glucose (test code 225 mg/dL 65-99 H Opera tor Name: = 31472-2) Compa oakes ID: [id number] able: RN Notified Lab Interpretation Abnormal (test code = 91085-5) [facility]2022-07-13 17:27:00 Test Item Value Reference Range Interpretation Comments POC glucose (test code 225 mg/dL 65-99 H Opera tor Name: = 98867-9) Compa oakes ID: [id number] able: RN Notified Lab Interpretation Abnormal (test code = 15185-5) [facility]2022-07-13 17:27:00 Test Item Value Reference Range Interpretation Comments POC glucose (test code 225 mg/dL 65-99 H Opera tor Name: = 06641-9) Compa oakes ID: [id number] able: RN Notified Lab Interpretation Abnormal (test code = 20572-3) [facility]2022-07-13 17:27:00 Test Item Value Reference Range Interpretation Comments POC glucose (test code 225 mg/dL 65-99 H Opera tor Name: = 51867-7) Compa oakes ID: [id number] able: RN Notified Lab Interpretation Abnormal (test code = 02736-1) [facility]2022-07-13 17:27:00 Test Item Value Reference Range Interpretation Comments POC glucose (test code 225 mg/dL 65-99 H Opera tor Name: = 51227-1) Compa oakes ID: [id number] able: RN Notified Lab Interpretation Abnormal (test code = 18499-8) [facility]2022-07-13 17:27:00 Test Item Value Reference Range Interpretation Comments POC glucose (test code 225 mg/dL 65-99 H Opera tor Name: = 07993-9) Compa oakes ID: [id number] able: RN Notified Lab Interpretation Abnormal (test code = 21009-8) [facility] [id number] 17:27:00 Test Item Value Reference Range Interpretation Comments POC glucose (test code 225 mg/dL 65-99 H Opera tor Name: = 15219-8) Compa oakes ID: [id number] able: RN Notified Lab Interpretation Abnormal (test code = 91070-8) [facility]2022-07-13 17:27:00 Test Item Value Reference Range Interpretation Comments POC glucose (test code 225 mg/dL 65-99 H Opera tor Name: = 36382-7) Compa oakes ID: [id number] able: RN Notified Lab Interpretation Abnormal (test code = 57720-8) [facility]2022-07-13 17:27:00 Test Item Value Reference Range Interpretation Comments POC glucose (test code 225 mg/dL 65-99 H Opera tor Name: = 90483-9) Compa oakes ID: [id number] able: RN Notified Lab Interpretation Abnormal (test code = 02242-8) [facility]2022-07-13 17:27:00 Test Item Value Reference Range Interpretation Comments POC glucose (test code 225 mg/dL 65-99 H Opera tor Name: = 63795-8) Compa oakes ID: [id number] able: RN Notified Lab Interpretation Abnormal (test code = 22570-9) [facility] [Presence] in Respiratory specimen by SJ with probe [id number] 16:13:23 Test Item Value Reference Range Interpretation Comments SARS-CoV-2 (COVID-19) RNA Not detected [Presence] in Respiratory specimen by SJ with probe detection (test code = 57209-6) Whether patient is employed in a Unknown healthcare setting (test code = 18648-7) Whether the patient has symptoms Unknown related to condition of interest (test code = 71023-6) Whether the patient was Unknown hospitalized for condition of interest (test code = 25036-1) Whether the patient was admitted Unknown to intensive care unit (ICU) for condition of interest (test code = 41262-6) Whether patient resides in a Unknown congregate care setting (test code = 83413-8) status (test code = Unknown 90275-6) Date and time of symptom onset Unknown (test code = 68613-8) [address]2022-07-11 01:10:55 Test Item Value Reference Range Interpretation Comments Ventricular rate (test code = 253) Atrial rate (test code = 255) DC interval (test code = 266) QRSD interval [...] Iglesias MD (2064) on 09/26/2021 8:10:48 PM [address]2022-07-11 01:10:55 Test Item Value Reference Range Interpretation Comments Ventricular rate (test code = 253) Atrial rate (test code = 255) DC interval (test code = 266) QRSD interval [...] Iglesias MD (2064) on 09/26/2021 8:10:48 PM [address]2022-07-11 01:10:55 Test Item Value Reference Range Interpretation Comments Ventricular rate (test 39 code = 253) Atrial rate (test code 39 = 255) DC interval (test code 174 = 266) QRSD interval (test 108 code = 260) QT interval (test code 468 = 264) QTC interval (test code 376 = 265) P axis 1 (test code = 54 267) QRS axis 1 (test code = -9 268) T wave axis (test code 14 = 270) EKG impression (test Marked sinus [...] Iglesias MD (2064) on 09/26/2021 8:10:48 PM [address]2022-07-11 01:10:55 Test Item Value Reference Range Interpretation Comments Ventricular rate (test 39 code = 253) Atrial rate (test code 39 = 255) DC interval (test code 174 = 266) QRSD interval (test 108 code = 260) QT interval (test code 468 = 264) QTC interval (test code 376 = 265) P axis 1 (test code = 54 267) QRS axis 1 (test code = -9 268) T wave axis (test code 14 = 270) EKG impression (test Marked sinus [...] Iglesias MD (2064) on 09/26/2021 8:10:48 PM [address]2022-07-11 01:10:55 Test Item Value Reference Range Interpretation Comments Ventricular rate (test code = 253) Atrial rate (test code = 255) DC interval (test code = 266) QRSD interval [...] Iglesias MD (2064) on 09/26/2021 8:10:48 PM [address]2022-07-11 01:10:55 Test Item Value Reference Range Interpretation Comments Ventricular rate (test code = 253) Atrial rate (test code = 255) DC interval (test code = 266) QRSD interval [...] Iglesias MD (2064) on 09/26/2021 8:10:48 PM [address]2022-07-11 01:10:55 Test Item Value Reference Range Interpretation Comments Ventricular rate (test code = 253) Atrial rate (test code = 255) DC interval (test code = 266) QRSD interval [...] Iglesias MD (2064) on 09/26/2021 8:10:48 PM [address]2022-07-11 01:10:55 Test Item Value Reference Range Interpretation Comments Ventricular rate (test code = 253) Atrial rate (test code = 255) DC interval (test code = 266) QRSD interval [...] Iglesias MD (2064) on 09/26/2021 8:10:48 PM [place] [address] [id number] 01:10:55 Test Item Value Reference Range Interpretation Comments Ventricular rate (test code = 253) Atrial rate (test code = 255) DC interval (test code = 266) QRSD interval [...] Iglesias MD (2064) on 09/26/2021 8:10:48 PM [address]2022-07-11 01:10:55 Test Item Value Reference Range Interpretation Comments Ventricular rate (test code = 253) Atrial rate (test code = 255) DC interval (test code = 266) QRSD interval [...] Iglesias MD (2064) on 09/26/2021 8:10:48 PM [address]2022-07-11 01:10:55 Test Item Value Reference Range Interpretation Comments Ventricular rate (test code = 253) Atrial rate (test code = 255) DC interval (test code = 266) QRSD interval [...] Iglesias MD (2064) on 09/26/2021 8:10:48 PM [address]2022-07-11 01:10:55 Test Item Value Reference Range Interpretation Comments Ventricular rate (test code = 253) Atrial rate (test code = 255) DC interval (test code = 266) QRSD interval [...] Iglesias MD (2064) on 09/26/2021 8:10:48 PM [address]2022-07-11 01:10:55 Test Item Value Reference Range Interpretation Comments Ventricular rate (test code = 253) Atrial rate (test code = 255) DC interval (test code = 266) QRSD interval [...] Iglesias MD (2064) on 09/26/2021 8:10:48 PM [address]2022-07-11 01:10:55 Test Item Value Reference Range Interpretation Comments Ventricular rate (test code = 253) Atrial rate (test code = 255) DC interval (test code = 266) QRSD interval [...] Iglesias MD (2064) on 09/26/2021 8:10:48 PM [address]2022-07-11 01:10:55 Test Item Value Reference Range Interpretation Comments Ventricular rate (test code = 253) Atrial rate (test code = 255) DC interval (test code = 266) QRSD interval [...] Iglesias MD (2064) on 09/26/2021 8:10:48 PM [address]2022-07-11 01:10:55 Test Item Value Reference Range Interpretation Comments Ventricular rate (test code = 253) Atrial rate (test code = 255) DC interval (test code = 266) QRSD interval [...] Iglesias MD (2064) on 09/26/2021 8:10:48 PM [address]2022-07-11 01:10:55 Test Item Value Reference Range Interpretation Comments Ventricular rate (test code = 253) Atrial rate (test code = 255) DC interval (test code = 266) QRSD interval [...] Iglesias MD (2064) on 09/26/2021 8:10:48 PM [address]2022-07-11 01:10:55 Test Item Value Reference Range Interpretation Comments Ventricular rate (test code = 253) Atrial rate (test code = 255) DC interval (test code = 266) QRSD interval [...] Iglesias MD (2064) on 09/26/2021 8:10:[address] [facility] 12 [id number] 01:10:55 Test Item Value Reference Range Interpretation Comments Ventricular rate (test code = 253) Atrial rate (test code = 255) DC interval (test code = 266) QRSD interval [...] Iglesias MD (2064) on 09/26/2021 8:10:48 [facility] (w Contrast, Strain and 3D if needed)2021-09-22 23:49:22 Test Item Value Reference Range Interpretation Comments Ao Root Diameter (test 3.52 cm code = 8004859031) AoV Area, Vmax (test 2.34 cm2 code = 0174404656) AoV Area, VTI (test 2.60 cm2 code = 2480521070) AoV Mean PG (test code 3.29 mmHg = 2741818116) AoV Peak PG (test code 7.75 mmHg = 1117480940) AoV Vmax (test code = 1.58 m/s 0004249182) AoV VTI (test code = 0.27 m 9318524755) IVS,d (test code = 1.24 cm 0.6-1.0 A 2946448826) IVS/LVPW,2D (test code 0.98 = 9747601487) Left Atrium Dimension 4.50 cm Anterior (test code = 7048504280) LV,d (test code = 5.53 cm 4306624634) LV EF,2D (test code = 61.39 % 8650735746) LV,s (test code = 4.03 cm 5586865233) LVOT area (test code = 3.17 cm2 9392754617) LVOT Diam,S (test code 2.01 cm = 4549557359) LVOT Vmax (test code = 1.02 m/s 8916396781) LVOT VTI (test code = 0.23 m 6609548016) LVPWD,d (test code = 1.26 cm 0.6-1.0 A 4527815372) PV Pk Grad (test code 7.75 mmHg = 5282945826) PV VMAX (test code = 1.39 m/s 6037336096) RVOT Vmax (test code = 0.78 m/s 1588417757) TR Vpeak (test code = 2.70 m/s 1585803882) MV E A ratio (test 0.78 code = 5745251118) TR pk grad (test code 14.89 mmHg = 3622904287) MR Vmax (test code = 3.82 m/s 0145338572) E wave decelartion 215.97 msec time (test code = 4372454652) MV Peak A Stormy (test 0.80 m/s code = 0661351689) MV valve area p 1/2 3.51 cm2 method (test code = 8617086088) MV Peak E Stormy (test 0.63 m/s code = 3783749317) MV stenosis pressure 62.63 ms 1/2 time (test code = 7573244272) LVOT stroke volume 0.73 ml (test code = 6161437357) AV LVOT peak gradient 4.20 mmHg (test code = 7532371354) Ascending aorta (test 3.62 cm code = 0316265366) Ao Root Diameter (test 3.52 cm code = 2316471169) MV mean gradient (test 1.49 mmHg code = 4910737636) LV SYS VOL (test code 71.15 ml 21-61 A = 4636286867) LV HANEY VOL (test code 149.32 ml 62-150 = 8554319557) LA area s A4C (test 13.11 cm2 code = 5310846814) LV SV Teich 2D (test 78.18 ml code = 0384798530) LV Vol s Teich PSAX 71.15 ml (test code = 0023072231) MR peak grad (test 3.60 mmHg code = 7274190342) MV Vmax (test code = 0.95 m 7867569435) MV VTI Tips (test code 0.32 m = 6351523088) RVOT pk grad (test 2.42 mmHg code = 4336319983) AoV Vmn (test code = 0.85 m/s 8746922985) LV FS Teich 2D (test 27.18 code = 1055208318) MV AE ratio (test code 1.28 = 1843479869) LV FS Cube 2D (test 27.18 code = 0664244438) LVOT Vmn (test code = 0.66 7205150340) Aov area Vmn (test 2.37 cm2 code = 9516949484) LVOT mean grad (test 1.99 mmHg code = 4385081324) MAX Pred HR (test code 147.89 = 4435583964) 85 of MPHR (test code 125.70 = 0572547882) Calc MPHR (test code = 147.89 bpm 0816830854) LV SV Cube 2D (test 103.85 ml code = 2241814573) LV vol d cube 2D (test 169.18 ml code = 7771656164) LV vol s cube 2D (test 65.33 ml code = 5078901557) MV Decel slope (test 2.91 m/s2 code = 7073896574) Pred Exer Dur R1 (test 6.85 code = 9690369122) Pred METS R1 (test 7.18 code = 1756656745) LA Vol MOD A4C (test 25.42 ml code = 2426703191) E miranda sept (test 0.10 code = 3520995939) E prime lat (test code 0.15 = 5108512187) Velocity Ratio (V1/V2) 0.65 m/s (test code = 4689) EF (test code = 52 % 3495461499) E/A ratio (test code = 0.79 1309482579) LVOT VTI (CM) (test 23.00 cm code = 1874107000) FRANK (test code = FRANK) Left Ventricle: [...] obtained. Lab Interpretation Abnormal (test code = 39888-8) [facility]anda[facility] HnqmuctiURAM-MdS-5 (COVID-19) RNA [Presence] in Respiratory specimen by SJ with probe [id number] 18:25:31 Test Item Value Reference Range Interpretation Comments SARS-CoV-2 (COVID-19) RNA Not detected [Presence] in Respiratory specimen by SJ with probe detection (test code = 17963-7) Whether patient is employed in a Unknown healthcare setting (test code = 40351-0) Whether the patient has symptoms Unknown related to condition of interest (test code = 58372-6) Whether the patient was Unknown hospitalized for condition of interest (test code = 52825-2) Whether the patient was admitted Unknown to intensive care unit (ICU) for condition of interest (test code = 40033-5) Whether patient resides in a Unknown congregate care setting (test code = 91909-0) status (test code = Unknown 94701-8) Date and time of symptom onset Unknown (test code = 63389-3) [facility] [place] ED Preliminary Interpretation - Not an [id number] 17:16:17 Test Item Value Reference Range Interpretation Comments FRANK (test code = FRANK) Ramon Yi MD 09/21/2021 2:20 [facility] Preliminary Interpretation - Not an OrderPerformed by: Ramon Yi, MDAuthorized by: Ramon Yi MD ECG reviewed by ED Physician in the absence of a quality control checker: yes Interpretation: Interpretation: abnormal Quality: Tracing quality: Limited by artifactRate: ECG rate: 70 ECG rate assessment: normal Rhythm: Rhythm: sinus rhythm Ectopy: Ectopy: none QRS: QRS axis: Normal QRS intervals: NormalConduction: Conduction: normal ST segments: ST segments: NormalT waves: T waves: flattening and inverted Flattening: V1, V2, V3 and V4 Inverted: I and aVL Lab Interpretation Abnormal (test code = 23414-1) [facility] Preliminary Interpretation - Not an [id number] 17:16:17 Test Item Value Reference Range Interpretation Comments FRANK (test code = FRANK) Ramon Yi MD 09/21/2021 2:20 [facility] Preliminary Interpretation - Not an OrderPerformed by: Ramon Yi, MDAuthorized by: Ramon Yi MD ECG reviewed by ED Physician in the absence of a quality control checker: yes Interpretation: Interpretation: abnormal Quality: Tracing quality: Limited by artifactRate: ECG rate: 70 ECG rate assessment: normal Rhythm: Rhythm: sinus rhythm Ectopy: Ectopy: none QRS: QRS axis: Normal QRS intervals: NormalConduction: Conduction: normal ST segments: ST segments: NormalT waves: T waves: flattening and inverted Flattening: V1, V2, V3 and V4 Inverted: I and aVL Lab Interpretation Abnormal (test code = 33258-0) [facility] [facility] Preliminary Interpretation - Not an [id number] 17:16:17 Test Item Value Reference Range Interpretation Comments FRANK (test code = FRANK) Ramon Yi MD 09/21/2021 2:20 [facility] ED Preliminary Interpretation - Not an OrderPerformed by: Ramon Yi, MDAuthorized by: Ramon Yi MD ECG reviewed by ED Physician in the absence of a quality control checker: yes Interpretation: Interpretation: abnormal Quality: Tracing quality: Limited by artifactRate: ECG rate: 70 ECG rate assessment: normal Rhythm: Rhythm: sinus rhythm Ectopy: Ectopy: none QRS: QRS axis: Normal QRS intervals: NormalConduction: Conduction: normal ST segments: ST segments: NormalT waves: T waves: flattening and inverted Flattening: V1, V2, V3 and V4 Inverted: I and aVL Lab Interpretation Abnormal (test code = 27207-7) [facility] ED Preliminary Interpretation - Not an [id number] 17:16:17 Test Item Value Reference Range Interpretation Comments FRANK (test code = FRANK) Ramon Yi MD 09/21/2021 2:20 [facility] ED Preliminary Interpretation - Not an OrderPerformed by: Ramon Yi, MDAuthorized by: Ramon Yi MD ECG reviewed by ED Physician in the absence of a quality control checker: yes Interpretation: Interpretation: abnormal Quality: Tracing quality: Limited by artifactRate: ECG rate: 70 ECG rate assessment: normal Rhythm: Rhythm: sinus rhythm Ectopy: Ectopy: none QRS: QRS axis: Normal QRS intervals: NormalConduction: Conduction: normal ST segments: ST segments: NormalT waves: T waves: flattening and inverted Flattening: V1, V2, V3 and V4 Inverted: I and aVL Lab Interpretation Abnormal (test code = 05397-8) [facility] ED Preliminary Interpretation - Not an [id number] 17:16:17 Test Item Value Reference Range Interpretation Comments FRANK (test code = FRANK) Ramon Yi MD 09/21/2021 2:20 [facility] ED Preliminary Interpretation - Not an OrderPerformed by: Ramon Yi, MDAuthorized by: Ramon Yi MD ECG reviewed by ED Physician in the absence of a quality control checker: yes Interpretation: Interpretation: abnormal Quality: Tracing quality: Limited by artifactRate: ECG rate: 70 ECG rate assessment: normal Rhythm: Rhythm: sinus rhythm Ectopy: Ectopy: none QRS: QRS axis: Normal QRS intervals: NormalConduction: Conduction: normal ST segments: ST segments: NormalT waves: T waves: flattening and inverted Flattening: V1, V2, V3 and V4 Inverted: I and aVL Lab Interpretation Abnormal (test code = 13724-5) [facility] ED Preliminary Interpretation - Not an [id number] 17:16:17 Test Item Value Reference Range Interpretation Comments FRANK (test code = FRANK) Ramon Yi MD 09/21/2021 2:20 [facility] ED Preliminary Interpretation - Not an OrderPerformed by: Ramon Yi, MDAuthorized by: Ramon Yi MD ECG reviewed by ED Physician in the absence of a quality control checker: yes Interpretation: Interpretation: abnormal Quality: Tracing quality: Limited by artifactRate: ECG rate: 70 ECG rate assessment: normal Rhythm: Rhythm: sinus rhythm Ectopy: Ectopy: none QRS: QRS axis: Normal QRS intervals: NormalConduction: Conduction: normal ST segments: ST segments: NormalT waves: T waves: flattening and inverted Flattening: V1, V2, V3 and V4 Inverted: I and aVL Lab Interpretation Abnormal (test code = 67922-7) [facility] Preliminary Interpretation - Not an [id number] 17:16:17 Test Item Value Reference Range Interpretation Comments FRANK (test code = FRANK) Ramon Yi MD 09/21/2021 2:20 [facility] ED Preliminary Interpretation - Not an OrderPerformed by: Ramon Yi, MDAuthorized by: Ramon Yi MD ECG reviewed by ED Physician in the absence of a quality control checker: yes Interpretation: Interpretation: abnormal Quality: Tracing quality: Limited by artifactRate: ECG rate: 70 ECG rate assessment: normal Rhythm: Rhythm: sinus rhythm Ectopy: Ectopy: none QRS: QRS axis: Normal QRS intervals: NormalConduction: Conduction: normal ST segments: ST segments: NormalT waves: T waves: flattening and inverted Flattening: V1, V2, V3 and V4 Inverted: I and aVL Lab Interpretation Abnormal (test code = 32038-0) [facility] ED Preliminary Interpretation - Not an [id number] 17:16:17 Test Item Value Reference Range Interpretation Comments FRANK (test code = FRANK) Ramon Yi MD 09/21/2021 2:20 [facility] ED Preliminary Interpretation - Not an OrderPerformed by: Ramon Yi, MDAuthorized by: Ramon Yi MD ECG reviewed by ED Physician in the absence of a quality control checker: yes Interpretation: Interpretation: abnormal Quality: Tracing quality: Limited by artifactRate: ECG rate: 70 ECG rate assessment: normal Rhythm: Rhythm: sinus rhythm Ectopy: Ectopy: none QRS: QRS axis: Normal QRS intervals: NormalConduction: Conduction: normal ST segments: ST segments: NormalT waves: T waves: flattening and inverted Flattening: V1, V2, V3 and V4 Inverted: I and aVL Lab Interpretation Abnormal (test code = 35140-7) [facility] ED Preliminary Interpretation - Not an [id number] 17:16:17 Test Item Value Reference Range Interpretation Comments FRANK (test code = FRANK) Ramon Yi MD 09/21/2021 2:20 [facility] ED Preliminary Interpretation - Not an OrderPerformed by: Ramon Yi, PAMELAuthorized by: Ramon Yi MD ECG reviewed by ED Physician in the absence of a quality control checker: yes Interpretation: Interpretation: abnormal Quality: Tracing quality: Limited by artifactRate: ECG rate: 70 ECG rate assessment: normal Rhythm: Rhythm: sinus rhythm Ectopy: Ectopy: none QRS: QRS axis: Normal QRS intervals: NormalConduction: Conduction: normal ST segments: ST segments: NormalT waves: T waves: flattening and inverted Flattening: V1, V2, V3 and V4 Inverted: I and aVL Lab Interpretation Abnormal (test code = 05479-9) [facility] ED Preliminary Interpretation - Not an [id number] 17:16:17 Test Item Value Reference Range Interpretation Comments FRANK (test code = FRANK) Ramon Yi MD 09/21/2021 2:20 [facility] ED Preliminary Interpretation - Not an OrderPerformed by: Ramon Yi, PAMELAuthorized by: Ramon Yi MD ECG reviewed by ED Physician in the absence of a quality control checker: yes Interpretation: Interpretation: abnormal Quality: Tracing quality: Limited by artifactRate: ECG rate: 70 ECG rate assessment: normal Rhythm: Rhythm: sinus rhythm Ectopy: Ectopy: none QRS: QRS axis: Normal QRS intervals: NormalConduction: Conduction: normal ST segments: ST segments: NormalT waves: T waves: flattening and inverted Flattening: V1, V2, V3 and V4 Inverted: I and aVL Lab Interpretation Abnormal (test code = 92844-8) [facility] ED Preliminary Interpretation - Not an [id number] 17:16:17 Test Item Value Reference Range Interpretation Comments FRANK (test code = FRANK) Ramon Yi MD 09/21/2021 2:20 [facility] ED Preliminary Interpretation - Not an OrderPerformed by: Ramon Yi, MDAuthorized by: Ramon Yi MD ECG reviewed by ED Physician in the absence of a quality control checker: yes Interpretation: Interpretation: abnormal Quality: Tracing quality: Limited by artifactRate: ECG rate: 70 ECG rate assessment: normal Rhythm: Rhythm: sinus rhythm Ectopy: Ectopy: none QRS: QRS axis: Normal QRS intervals: NormalConduction: Conduction: normal ST segments: ST segments: NormalT waves: T waves: flattening and inverted Flattening: V1, V2, V3 and V4 Inverted: I and aVL Lab Interpretation Abnormal (test code = 94754-7) [facility] ED Preliminary Interpretation - Not an [id number] 17:16:17 Test Item Value Reference Range Interpretation Comments FRANK (test code = FRANK) Ramon Yi MD 09/21/2021 2:20 [facility] ED Preliminary Interpretation - Not an OrderPerformed by: Ramon Yi, MDAuthorized by: Ramon Yi MD ECG reviewed by ED Physician in the absence of a quality control checker: yes Interpretation: Interpretation: abnormal Quality: Tracing quality: Limited by artifactRate: ECG rate: 70 ECG rate assessment: normal Rhythm: Rhythm: sinus rhythm Ectopy: Ectopy: none QRS: QRS axis: Normal QRS intervals: NormalConduction: Conduction: normal ST segments: ST segments: NormalT waves: T waves: flattening and inverted Flattening: V1, V2, V3 and V4 Inverted: I and aVL Lab Interpretation Abnormal (test code = 58654-4) [facility] ED Preliminary Interpretation - Not an [id number] 17:16:17 Test Item Value Reference Range Interpretation Comments FRANK (test code = FRANK) Raomn Yi MD 09/21/2021 2:20 [facility] ED Preliminary Interpretation - Not an OrderPerformed by: Ramon Yi, MDAuthorized by: Ramon Yi MD ECG reviewed by ED Physician in the absence of a quality control checker: yes Interpretation: Interpretation: abnormal Quality: Tracing quality: Limited by artifactRate: ECG rate: 70 ECG rate assessment: normal Rhythm: Rhythm: sinus rhythm Ectopy: Ectopy: none QRS: QRS axis: Normal QRS intervals: NormalConduction: Conduction: normal ST segments: ST segments: NormalT waves: T waves: flattening and inverted Flattening: V1, V2, V3 and V4 Inverted: I and aVL Lab Interpretation Abnormal (test code = 10794-0) [facility] ED Preliminary Interpretation - Not an [id number] 17:16:17 Test Item Value Reference Range Interpretation Comments FRANK (test code = FRANK) Ramon Yi MD 09/21/2021 2:20 [facility] ED Preliminary Interpretation - Not an OrderPerformed by: Ramon Yi, MDAuthorized by: Ramon Yi MD ECG reviewed by ED Physician in the absence of a quality control checker: yes Interpretation: Interpretation: abnormal Quality: Tracing quality: Limited by artifactRate: ECG rate: 70 ECG rate assessment: normal Rhythm: Rhythm: sinus rhythm Ectopy: Ectopy: none QRS: QRS axis: Normal QRS intervals: NormalConduction: Conduction: normal ST segments: ST segments: NormalT waves: T waves: flattening and inverted Flattening: V1, V2, V3 and V4 Inverted: I and aVL Lab Interpretation Abnormal (test code = 55080-8) [facility] ED Preliminary Interpretation - Not an [id number] 17:16:17 Test Item Value Reference Range Interpretation Comments FRANK (test code = FRANK) Ramon Yi MD 09/21/2021 2:20 [facility] ED Preliminary Interpretation - Not an OrderPerformed by: Ramon Yi, MDAuthorized by: Ramon Yi MD ECG reviewed by ED Physician in the absence of a quality control checker: yes Interpretation: Interpretation: abnormal Quality: Tracing quality: Limited by artifactRate: ECG rate: 70 ECG rate assessment: normal Rhythm: Rhythm: sinus rhythm Ectopy: Ectopy: none QRS: QRS axis: Normal QRS intervals: NormalConduction: Conduction: normal ST segments: ST segments: NormalT waves: T waves: flattening and inverted Flattening: V1, V2, V3 and V4 Inverted: I and aVL Lab Interpretation Abnormal (test code = 29065-0) [facility] ED Preliminary Interpretation - Not an [id number] 17:16:17 Test Item Value Reference Range Interpretation Comments FRANK (test code = FRANK) Ramon Yi MD 09/21/2021 2:20 [facility] ED Preliminary Interpretation - Not an OrderPerformed by: Ramon Yi, MDAuthorized by: Ramon Yi MD ECG reviewed by ED Physician in the absence of a quality control checker: yes Interpretation: Interpretation: abnormal Quality: Tracing quality: Limited by artifactRate: ECG rate: 70 ECG rate assessment: normal Rhythm: Rhythm: sinus rhythm Ectopy: Ectopy: none QRS: QRS axis: Normal QRS intervals: NormalConduction: Conduction: normal ST segments: ST segments: NormalT waves: T waves: flattening and inverted Flattening: V1, V2, V3 and V4 Inverted: I and aVL Lab Interpretation Abnormal (test code = 47473-6) [facility] ED Preliminary Interpretation - Not an [id number] 17:16:17 Test Item Value Reference Range Interpretation Comments FRANK (test code = FRANK) Ramon Yi MD 09/21/2021 2:20 [facility] ED Preliminary Interpretation - Not an OrderPerformed by: Ramon Yi, PAMELAuthorized by: Ramon Yi MD ECG reviewed by ED Physician in the absence of a quality control checker: yes Interpretation: Interpretation: abnormal Quality: Tracing quality: Limited by artifactRate: ECG rate: 70 ECG rate assessment: normal Rhythm: Rhythm: sinus rhythm Ectopy: Ectopy: none QRS: QRS axis: Normal QRS intervals: NormalConduction: Conduction: normal ST segments: ST segments: NormalT waves: T waves: flattening and inverted Flattening: V1, V2, V3 and V4 Inverted: I and aVL Lab Interpretation Abnormal (test code = 86678-4) [facility] Preliminary Interpretation - Not an [id number] 17:16:17 Test Item Value Reference Range Interpretation Comments FRANK (test code = FRANK) Ramon Yi MD 09/21/2021 2:20 [facility] ED Preliminary Interpretation - Not an OrderPerformed by: Ramon Yi, MDAuthorized by: Ramon Yi MD ECG reviewed by ED Physician in the absence of a quality control checker: yes Interpretation: Interpretation: abnormal Quality: Tracing quality: Limited by artifactRate: ECG rate: 70 ECG rate assessment: normal Rhythm: Rhythm: sinus rhythm Ectopy: Ectopy: none QRS: QRS axis: Normal QRS intervals: NormalConduction: Conduction: normal ST segments: ST segments: NormalT waves: T waves: flattening and inverted Flattening: V1, V2, V3 and V4 Inverted: I and aVL Lab Interpretation Abnormal (test code = 81237-4) [facility] Preliminary Interpretation - Not an [id number] 17:16:17 Test Item Value Reference Range Interpretation Comments FRANK (test code = FRANK) Ramon Yi MD 09/21/2021 2:20 [facility] ED Preliminary Interpretation - Not an OrderPerformed by: Ramon Yi, MDAuthorized by: Ramon Yi MD ECG reviewed by ED Physician in the absence of a quality control checker: yes Interpretation: Interpretation: abnormal Quality: Tracing quality: Limited by artifactRate: ECG rate: 70 ECG rate assessment: normal Rhythm: Rhythm: sinus rhythm Ectopy: Ectopy: none QRS: QRS axis: Normal QRS intervals: NormalConduction: Conduction: normal ST segments: ST segments: NormalT waves: T waves: flattening and inverted Flattening: V1, V2, V3 and V4 Inverted: I and aVL Lab Interpretation Abnormal (test code = 53550-2) [facility] [id number] 16:33:01 Test Item Value Reference Range Interpretation Comments TROPONIN I (test <0.012 See_Comment [Automated code = 7508165677) message] The system which generated this result [...] ? Lab Interpretation Normal (test code = 74908-8) [id number] 16:30:00 Test Item Value Reference Range Interpretation Comments NT-proBNP (test code 185 pg/mL See_Comment H [Autom ated = 9129359936) message] The system which generated this result transmitted reference range : <=125. The reference range was not used to interpret this result as normal/abnormal . FRANK (test code = FRANK) Biotin has been reported to cause a negative bias, interpret results relative to patient's use of biotin. Lab Interpretation Abnormal (test code = 38281-9) [facility] (94147)(TOTAL CHOLESTEROL, TRIGLYCERIDES, HDL)2020-06-06 16:22:02 Test Item Value Reference Range Interpretation Comments CHOL (test code = 214 mg/dL 120-200 H 0455656922) HDL (test code = 60 mg/dL >40 8284017691) HDLC RATIO (test code = See_Comment [Au tomated message] 0677677831) The system whic h generated this result transmit tammy reference range : <=5.0. The refe rence range was not u sed to interpret th is result as normal/abnormal . TRIG (test code = 316 mg/dL 30-170 H 9722204441) LDL CHOL (test code = 91 mg/dL See_Comment [Auto mated message] 06821-8) The system [employer] generated this result transmit tammy reference range : <=160. The refe rence range was not u sed to interpret th is result as normal/abnormal . VLDL (test code = 63 mg/dL 5-60 H 7373482251) Lab Interpretation (test Abnormal code = 65778-4) [facility] [id number] 11:58:49 Test Item Value Reference Range Interpretation Comments SARS-CoV-2 NAAT (test Positive Not Detected A code = 51356-9) FRANK (test code = FRANK) [employer] Volume Wizard App Xpert ?Xpress SARS-CoV-2 Assay is a rapid, real-time RT-PCR test intended for the qualitative detection of nucleic acid from the SARS-CoV-2 in nasopharyngeal (OPTICIAN APPRENTICE DISPENSING) specimens. It is used under Emergency Use [...] indicated. Lab Interpretation Abnormal (test code = 03294-8) [facility] (A1C)2020-06-06 11:56:53 Test Item Value Reference Range Interpretation Comments HGB A1C (test code = 7.8 % 4.0-6.0 H 4548-4) FRANK (test code = FRANK) %A1C (NGSP) Interpretation (ADA)4.8-5.6 ? ? Normal or (Non-Diabetic Range)5.7-6.4 ? ? Increased Risk (Pre-Diabetic)>6.5 ?Diabetes Indicated Lab Interpretation Abnormal (test code = 72124-4) [facility] (ID NOW RAPID TESTING)2020-06-06 04:57:34 Test Item Value Reference Range Interpretation Comments SARS-CoV-2 Rapid ID NOW Positive Not Detected A (test code = 32106-7) FRANK (test code = FRANK) ID NOW COVID-19 Assay is an isothermal nucleic acid amplification test intended for the qualitative detection of nucleic acid from SARS-CoV-2 viral RNA in nasopharyngeal (OPTICIAN APPRENTICE DISPENSING) specimens. It is used under Emergency Use [...] indicated. Lab Interpretation Abnormal (test code = 99398-8) [facility] [id number] 03:36:48 Test Item Value Reference Range Interpretation Comments TROPONIN I (test <0.012 See_Comment [Automated code = 7157036726) message] The system which generated this result [...] ? Lab Interpretation Normal (test code = 41506-4) [facility]. METABOLIC PANEL (93552)2020-06-06 03:23:27 Test Item Value Reference Range Interpretation Comments NA (test code = 135 mmol/L 135-145 9945327729) K (test code = 4.5 mmol/L 3.5-5.0 6564770887) CL (test code = 99 mmol/L 98-108 0873296646) CO2 TOTAL (test code = 27 mmol/L 23-31 4581189315) AGAP (test code = 2-16 1524223523) BUN (test code = 25 mg/dL 7-23 H 3725892821) GLUCOSE (test code = 203 mg/dL 70-110 H 6343997686) CREATININE (test code = 1.31 mg/dL 0.60-1.25 H 8439063072) TOTAL BILI (test code = 0.6 mg/dL 0.1-1.0 5134344743) CALCIUM (test code = 9.0 mg/dL 8.6-10.6 3263904671) T PROTEIN (test code = 6.9 g/dL 6.3-8.2 8070171533) ALBUMIN (test code = 4.3 g/dL 3.5-5.0 9424020440) ALK PHOS (test code = 54 U/L 34-122 9263504902) ALTv (test code = 12 U/L 5-50 1742-6) AST(SGOT) (test code = 25 U/L 13-40 8063206133) eGFR Calculation mL/min/1.73m2 (Non-) (test code = 5989847687) eGFR Calculation mL/min/1.73m2 () (test code = 5751903496) FRANK (test code = FRANK) Association of [...] tests). Lab Interpretation Abnormal (test code = 89468-7) [facility] 03:19:40 Test Item Value Reference Range Interpretation Comments APPEARANCE (test code = Hazy Clear A 0231976294) COLOR (test code = Anais Yellow A 1022760287) PH (test code = 4.8-8.0 2096151877) SP GRAVITY (test code = 1.003-1.030 0706123495) GLU U QUAL (test code = 500 mg/dL Normal A 5820581818) BLOOD (test code = Negative Negative 9115376414) KETONES (test code = 5 mg/dL Negative A 8923783549) PROTEIN (test code = 30 mg/dL Negative A 2887-8) UROBILIN (test code = 2.0 mg/dL Normal A 6219709343) BILIRUBIN (test code = Negative Negative 2189993145) NITRITE (test code = Negative Negative 3605031250) LEUK RAIN (test code = Negative Negative 4770002276) RBC/HPF (test code = See_Comment [Autom ated message] 9433617118) The system [employer] generated this result transmit tammy reference range : 0 - 3 HPF. The refe rence range was not u sed to interpret th is result as normal/abnormal . WBC/HPF (test code = See_Comment [Autom ated message] 7387240159) The system [employer] generated this result transmit tammy reference range : 0 - 5 HPF. The refe rence range was not u sed to interpret th is result as normal/abnormal . BACTERIA (test code = Few Negative A 1303418999) MUCOUS (test code = Slight Negative LPF A 8652226010) SQ EPITH (test code = HPF 9789536380) HYAL CAST (test code = See_Comment H [Aut omated message] 5051653141) The system [employer] generated this result transmit tammy reference range : <=2 LPF. The refere nce range was not u sed to interpret th is result as normal/abnormal . Lab Interpretation (test Abnormal code = 53374-7) [facility] WITH [id number] 03:13:42 Test Item Value Reference Range Interpretation [...] RDW-SD (test code = 46.5 fL 38.5-51.6 57659-1) RDW-CV (test code = 14.5 % 12.1-15.4 788-0) PLT (test code = See_Comment [Automated 777-3) message] The sy stem which generated this result transmitted reference range : 150 - 328 10*3/ ?L. The reference r denise was not used to interpret this result as normal/abnormal . MPV (test code = 9.6 fL 9.8-13.0 L 85749-7) NRBC/100 WBC (test See_Comment [Automat ed code = 1634550790) message] The system which generated this result transmitted reference range : 0.0 - 10.0 /100 WBCs. The refer ence range was not u sed to interpret th is result as normal/abnormal . NRBC x10^3 (test code <0.01 See_Comment [Auto mated = 5797562251) message] The s ystem which generated this result transmitted reference range : 10*3/?L. The reference range was not used to interpret this result as normal/abnormal . GRAN MAT (NEUT) % 54.8 % (test code = 770-8) IMM GRAN % (test code 1.30 % = 4216274447) LYMPH % (test code = 27.9 % 736-9) MONO % (test code = 7.8 % 5905-5) EOS % (test code = 7.6 % 713-8) BASO % (test code = 0.6 % 706-2) GRAN MAT x10^3(ANC) 5.66 10*3/uL 1.99-6.95 (test code = 3461880233) IMM GRAN x10^3 (test 0.13 10*3/uL 0.00-0.06 H code = 1940033692) LYMPH x10^3 (test code 2.88 10*3/uL 1.09-3.23 = 731-0) MONO x10^3 (test code 0.81 10*3/uL 0.36-1.02 = 742-7) EOS x10^3 (test code = 0.78 10*3/uL 0.06-0.53 H 711-2) BASO x10^3 (test code 0.06 10*3/uL 0.01-0.09 = 704-7) Lab Interpretation Abnormal (test code = 32586-8) [facility] [id number] 03:11:14 1. ?No acute cardiopulmonary abnormality.EXAM: XR [...] An ACDF partial visualized.IMPRESSION1. No acute cardiopulmonary abnormality.[facility] HospitalURINE [id number] 09:06:00 Test Item Value Reference Range Interpretation Comments CULTURE (BEAKER) (test code = 1095) No growth POCT-GLUCOSE [id number] 12:32:00 Test Item Value Reference Range Interpretation Comments POC-GLUCOSE METER 188 mg/dL 70-110 H : TESTED A T [facility] [address] (BEAKER) (test code [address], = 1538) [place] [id number]: Spring Coverer/Techni eddie ID = [id number] for Obik roberta, Ifeyinwa POCT-GLUCOSE [id number] 08:42:00 Test Item Value Reference Range Interpretation Comments POC-GLUCOSE METER 135 mg/dL 70-110 H : TESTED A T [facility] [address] (BEAKER) (test code [address], = 1538) [place] [address]: Spring Coverer/Techni eddie ID = [id number] for Obik roberta, Ifeyinwa COMPREHENSIVE METABOLIC [id number] 05:20:00 Test Item Value Reference Range Interpretation [...] S NOT APPLICABLE FOR DIALYSIS PATIEN TS. Spring Coverer ID - [id number] W/PLT COUNT & AUTO [id number] 04:56:00 Test Item Value Reference Range Interpretation [...] PERCENT (BEAKER) (test code = 2801) POCT-GLUCOSE [id number] 20:27:00 Test Item Value Reference Range Interpretation Comments POC-GLUCOSE METER 258 mg/dL 70-110 H : TESTED A T [facility] [address] (BEAKER) (test code [facility] [address], = 1538) [facility] 77 478: Spring Coverer/Techni eddie ID = [id number] for Bettina Leal POCT-GLUCOSE [id number] 17:51:00 Test Item Value Reference Range Interpretation Comments POC-GLUCOSE METER 262 mg/dL 70-110 H : TESTED A T [facility] (BEAKER) (test code [address], = 1538) [place] [id number]: Spring Coverer/Techni eddie ID = [id number] for Bhavin Carvajal POCT-GLUCOSE [id number] 12:48:00 Test Item Value Reference Range Interpretation Comments POC-GLUCOSE METER 242 mg/dL 70-110 H : TESTED A T [facility] (BEAKER) (test code [address], = 1538) [place] [id number]: Spring Coverer/Techni eddie ID = [id number] for Bhavin Carvajal [id number] 10:22:00 Test Item Value Reference Range Interpretation [...] (Auto Output)Final Information (Auto Output)Final Information (Auto Output)[id number] 10:19:00 Test Item Value Reference Range Interpretation Comments MAGNESIUM (BEAKER) (test code = 2.1 mg/dL 1.5-3.0 627) Spring Coverer ID - [id number] METABOLIC [id number] 10:18:00 Test Item Value Reference Range Interpretation [...] S NOT APPLICABLE FOR DIALYSIS PATIEN TS. Spring Coverer ID - [id number] W/PLT COUNT & AUTO [id number] 10:14:00 Test Item Value Reference Range Interpretation [...] PERCENT (BEAKER) (test code = 2801) POCT-GLUCOSE [id number] 09:14:00 Test Item Value Reference Range Interpretation Comments POC-GLUCOSE METER 198 mg/dL 70-110 H : TESTED A [facility] 1317 ([facility]) (test code [facility], = 1538) [place] [id number]: Spring Coverer/Techni eddie ID = [id number] for Bhavin Carvajal POCT-GLUCOSE [id number] 21:33:00 Test Item Value Reference Range Interpretation Comments POC-GLUCOSE METER 218 mg/dL 70-110 H : TESTED A T [facility] 1317 ([facility]) (test code [facility], = 1538) [place] [id number]: Spring Coverer/Techni eddie ID = [id number] for Roney Chapa POCT-GLUCOSE [id number] 16:23:00 Test Item Value Reference Range Interpretation Comments POC-GLUCOSE METER 225 mg/dL 70-110 H : Notified RN/MD: TESTED ([facility]) (test code AT [facility] [address] = 1538) [place] [id number]: Spring Coverer/Techni eddie ID = [id number] for Felicitas Tolliver POCT-GLUCOSE [id number] 14:34:00 Test Item Value Reference Range Interpretation Comments POC-GLUCOSE METER 167 mg/dL 70-110 H : TESTED A T [facility] 1317 (BEAKER) (test code [address], = 1538) [place] [id number]: Spring Coverer/Techni eddie ID = [id number] for Pramod er, [place], FLUORO, NON-SPECIFIC, UP TO 1 [id number] 13:30:00Reason for exam:->surgeryFluoroscopic unit utilized for a procedure performed in the OR. No interpretation was requested. Refer to the operative report for findings. Refer to PACS for patient radiation dose information.URINALYSIS WITHOUT [id number] 11:32:00 Test Item Value Reference Range Interpretation [...] 463) SOURCE(BEAKER) (test code = 2795) POCT-GLUCOSE [id number] 07:56:00 Test Item Value Reference Range Interpretation Comments POC-GLUCOSE METER 179 mg/dL 70-110 H : TESTED A T [facility] (BEAKER) (test code [address], = 1538) [place] [id number]: Spring Coverer/Techni eddie ID = [id number] for Yogesh Padilla SARS-COV2/RT-PCR ([facility])2019-10-30 13:51:00 Test Item Value Reference Range Interpretation Comments SARS-COV2/RT-PCR (test code = See reflex [id number]) SARS-COV-2 PERFORMING LAB (test code [facility] = 6724424) BASIC METABOLIC [id number] 09:33:00 Test Item Value Reference Range Interpretation [...] 1092) DATA TO CALCULA TE ESTIMATED GFR. Spring Coverer ID - [id number] W/PLT COUNT & AUTO [id number] 09:03:00 Test Item Value Reference Range Interpretation [...] % 0-0 PERCENT (BEAKER) (test code = 2801) Notes Date/Time Note Provider Source 2019-11-04 21:59:23-00:00 JEFFERSON BRAGG [facility] OPERATIVE/PROCEDURE REPORT MACHELLE ELAM FACILITY: [facility] Billing #: [id number] Room: [address] [place] [address] MR #: [id number] : 1950 DATE OF PROCEDURE: 11/04/2019 SURGEON: Jefferson Bragg MD PREOPERATIVE DIAGNOSES: Multilevel cervical dege nerative disk disease and stenosis, with intractable neck and right deltoid pain. POSTOPERATIVE DIAGNOSES: Multilevel cervical degenerative disk disease an d stenosis, with intractable neck and right deltoid pain. OPERATIONS PERFORMED: C4-C5, C5-C6, and C6-C7 an terior cervical diskectomy and fusion, with spinal edyta l and exiting nerve root decompression. Use of structural bone allograft x3. C4-C7 anterior cervical fixation, using Synthes Vectra plate. Use of operative microscope. TELEVISION NEWS PRODUCER: Paulino Asher PA-C. Mr. Asher's assistance was required throughout this case, for retraction of cervical tissue including trachea and esophagus medially, to allow for visualization of the vent ral cervical spine, suctioning to provide clear surgical visu al field, and assistance with wound closure. ANESTHESIA: General endotracheal anesthesia. OPERATIVE INDICATION: This is a 69-year-old daniel mccormackan with a history of severe neck pain and right deltoid pa in since December 2018 following a fall. The pain radiated into the occipital region as well as into the midthoracic region. He was found on MRI studies to have multilevel cerv ical degenerative disk disease with severe multilevel foraminal stenosis at several levels. He was seen by Pain Management and was subsequently told that epidural steroid inje ctions were not an option due to his past medical history. Becau se nonsurgical treatment options were unavailable, surgical shahid atment was discussed with the patient, consisting of a 3-le stormy anterior cervical diskectomy and fusion for treatment of the multilevel degenerative disk disease and stenosis. Risks, b enefits, and alternatives of this operation was discussed in detail with the patient, who understood and desired to proceed. OPERATIVE FINDINGS: Severe degenerative disk dis ease with foraminal stenosis at C4-C5, C5-C6, and C6-C7. OPERATIVE COURSE: After general endotracheal ane sthesia was obtained and neuromonitoring electrodes were federico lisbeth, the patient was positioned in a supine position with his head in slight extension, and all pressure points were c hecked and adequately padded. Preoperative antibiotics were administered and preoperative time-out was taken. The patient 's anterior cervical region was then prepped and draped in t he standard sterile fashion. Longitudinal incision was made on the right, following the medial border of the sternocleidom astoid muscle. Incision was carried down to the underlying plat ysma muscle, which was opened in a lengthwise fashion. Plane between the trachea and esophagus medially, and the carotid sheath laterally, was then followed using spreading dis section down to the ventral surface of the cervical spine. Intra operative x-ray was done to confirm the correct operative levels. Once this was confirmed, longus colli muscle was diss ected away from the ventral cervical spine from C4 down to C7. A nterior osteophytes located over the disk spaces were re moved and smoothed off with a Leksell rongeur. Attention was first directed to the C4-C5 level. Self-retaining retractor was placed. [place] pins were placed into the C4 and C5 vertebral bodies. Disk was in cised and [place] pins were placed under distraction, to op en up the disk space and to promote cervical lordotic curvature . Operative microscope was then draped and brought into the operating field. Under operative magnification, complete d iskectomy was performed at C4-C5, with removal of cartilaginou s endplates to expose the underlying bony endplates. Anterior a nd posterior osteophytes, as well as bilateral uncinate proce sses, were drilled down, and bone shavings were harvested a nd set aside. Posterior longitudinal ligament was then incised and removed to expose the underlying dura. Complete central and bilateral exiting nerve root decompression was then perfor med with Kerrison rongeurs. Decompression was confirmed b y direct microscopic visualization as well as by palpatio n with a blunt tip nerve hook. Once decompression had been comp leted and confirmed, an 8 mm height machined allograft bon e dowel was selected. Hollow portion of the bone dowel was f illed with previously harvested bone shavings, and the bone dowel was then tamped into place into the C4-C5 disk space. [place] pin was removed from C4. [place] pins were then placed into the C6 and C7 vertebral bodies, and attenti on was then directed to the C6-C7 disk space. The disk was i ncised and [place] pins were placed under distraction. Compl ete diskectomy was then performed at C6-C7, with removal of car tilaginous endplates to again expose the underlying bony en dplates. Anterior and posterior osteophytes and bilateral uncinate processes were drilled off. The posterior longit udinal ligament was incised and removed to expose the u nderlying dura, and complete central and bilateral exiting nerve root decompression was again performed. Once decompre ssion had been completed and confirmed, a tricortical iliac cre st allograft bone dowel was selected. The bone dowel was shav ed down into an appropriate size and was then inserted into t he C6-C7 disk space. [place] pin was removed from C7. Attention was th en directed to the C5-C6 disk space. Disk was incised and Caspa r pins were placed under distraction. Complete diskectomy wa s then performed at C5-C6, with removal of cartilaginou s endplates and subsequent removal of anterior and posterior ost eophytes and bilateral uncinate processes. Posterior longitud inal ligament was then incised and removed, and complete centr al and bilateral exiting nerve root decompression was o nce again performed. Once decompression had been completed and confirmed, another tricortical iliac crest allog raft bone dowel was selected. Bone dowel was once again shaved d own to an appropriate size and was then inserted into the C5-C6 disk space. [place] pins were then all removed. An appropriat e size Synthes Vectra plate was selected. Plate was bent into a lordotic configuration and was then attached to the C4, C 5, C6, and C7 vertebral bodies, using fixed angle screws. Jessica l x-ray was then done to confirm good placement of the plate and bone grafts from C4 down to C7. Once this was confirm ed, hemostasis was obtained and the wound was thoroughly irriga tammy with antibiotic impregnated irrigation. SHASHA drain was left in the wound cavity, tunneled out and secured. Platysma muscle was then reapproximated with Vicryl sutures. Overlyi ng skin was then closed with inverted Vicryl sutures followe d by subcuticular stitch. Steri-Strips and dressings were then applied. The patient was then fitted with a rigi d cervical collar. He was then awakened, extubated, and the n transferred to the recovery room in satisfactory condition. OPERATIVE COMPLICATIONS: None. ESTIMATED BLOOD LOSS: 200 mL. SPECIMENS SENT: None. DRAINS: SHASHA drain x1. ZAID/ASHLEY /[id number]"
--- NOTE | 2022-10-31 18:35 | RAD REPORT ---
EXAM DESCRIPTION: RAD - Chest Single View - 10/31/2022 6:27 pm CLINICAL HISTORY: DYSPNEA Chest pain. COMPARISON: <Comparisons> FINDINGS: Portable technique limits examination quality. The lungs are grossly clear. The heart is normal in size. Pacer device noted. Sternotomy wires noted. Right-sided port catheter tip in the SVC. Cervical spine hardware. IMPRESSION: No acute intrathoracic process suspected.
[2022-10-31 19:15] LABS: Absolute Lymphocytes (CBC) 1.5 K/uL (0.7-4.9); Hematocrit 34.5 % (39.6-49.0); Lymphocytes % 15.4 % (15.3-44.8); MCV 79.6 fL (80-100); MPV 6.5 fL (7.6-11.3); Platelets 301 thou/uL (152-406); RBC Red Blood Cell Count 4.34 M/uL (4.33-5.43)
[2022-10-31 19:18] LABS: Protime INR 1.11
[2022-10-31 19:32] LABS: SARS-CoV-2 Antigen Rapid Res Negative (Negative)
[2022-10-31 19:33] LABS: AST/SGOT 15 U/L (15-37); Albumin 2.8 g/dL (3.4-5.0); Alkaline Phosphatase 59 U/L (45-117); BUN Blood Urea Nitrogen 10 mg/dL (7-18); Bicarbonate 24 mEq/L (21-32); Bilirubin Direct 0.2 mg/dL (0-0.2); Bilirubin Indirect, Calculated 0.5 mg/dL (0.2-0.8); Bilirubin Total 0.7 mg/dL (0.2-1.0); Glomerular Filtration Rate 90 ml/min (=/>90); Glucose Level 151 mg/dL (74-106); Lipase 29 U/L (13-75); Magnesium 2.1 mg/dL (1.6-2.4); NT PRO-BNP 1040 pg/mL (<125); Potassium 3.5 mEq/L (3.5-5.1); Protein, Total 6.5 g/dL (6.4-8.2); Sodium Level 135 mEq/L (136-145); Troponin High Sensitivity 26.4 pg/mL (<58.9)
[2022-10-31] MEDS ORDERED: NA CHLORIDE 0.9% 100 ML ONE (19:34)
[2022-10-31] MEDS ORDERED: Meropenem 1000 MG/VIAL IV ONE (19:34)
[2022-10-31] MEDS ORDERED: FAMOTIDINE 20 MG/2 ML VIAL IV ONE (19:34)
[2022-10-31] MEDS ORDERED: NA CHLORIDE 0.9% 1,000 ML ONE (19:34)
[2022-10-31 19:48] LABS: ALT/SGPT < 10 U/L (16-61)
[2022-10-31] MEDS ORDERED: ONDANSETRON 4 MG/2 ML VIAL ONE (21:15)
[2022-10-31] MEDS ORDERED: FENTANYL CITR 100 MCG/2 ML ONE (21:15)
[2022-10-31 21:26] LABS: Specific Gravity 1.014 (1.005-1.030); Urine Bacteria >50 /HPF (<20); Urine Bilirubin NEGATIVE (Negative); Urine Blood Negative (Negative); Urine Clarity Extremely Turbid (Clear); Urine Color Yellow (Yellow); Urine Glucose NEGATIVE (Negative); Urine Mucus Slight /HPF (None Seen); Urine Protein TRACE (Negative); Urine RBC <5 /HPF (None Seen); Urine Urobilinogen Normal (Normal); Urine pH 5.5 (5.0-7.0)
[2022-10-31] MEDS ORDERED: HYDROMORPHONE HCL 1 MG/ML INJ ONE ×2 (22:19→23:18)
[2022-10-31] MEDS ORDERED: METOCLOPRAMIDE 10 MG/2mL INJ ONE (23:18)
[2022-11-01] MEDS ORDERED: HYDROMORPHONE HCL 1 MG/ML INJ ONE ×2 (00:45→02:38)
--- NOTE | 2022-11-01 00:49 | EDPHYS ---
Physician Documentation [facility] Name: Blaine Silva Jr Age: 72 yrs Sex: Male : 1950 Arrival Date: 10/31/2022 Time: 17:40 Bed 16 Private MD: ED Physician Ra Navarro HPI: 10/31 18:05 This 72 yrs old Male presents to ER via EMS with complaints of Shortness Of slo[place] Breath. 18:05 The patient has shortness of breath at rest, with light activity. Onset: The [place] symptoms/episode began/occurred 2 day(s) ago. Duration: The symptoms are continuous, and are steadily getting worse. The patient's shortness of breath has no apparent modifying factors. Associated signs and symptoms: The patient has no apparent associated signs or symptoms. Severity of symptoms: At their worst the symptoms were mild moderate in the emergency department the symptoms are unchanged. The patient has not experienced similar symptoms in the past. Historical: - PMHx: 18:04 Prostate Cancer; Spinal Tumor; stroke; db - PSHx: 18:04 pacemaker; tripple bypass; db - Immunization history:: Adult Immunizations unknown. - Social history:: Smoking status: Patient reports use of chewing tobacco. ROS: 18:08 Constitutional: Negative for fever, chills, and weight loss, Eyes: Negative for injury, [place] pain, redness, and discharge, ENT: Negative for injury, pain, and discharge, Neck: Negative for injury, pain, and swelling, Cardiovascular: Negative for chest pain, palpitations, and edema, Abdomen/GI: Negative for abdominal pain, nausea, vomiting, diarrhea, and constipation, Back: Negative for injury and pain, : Negative for injury, bleeding, discharge, and swelling, MS/Extremity: Negative for injury and deformity, Psych: Negative for depression, anxiety, suicide ideation, homicidal ideation, and hallucinations, Allergy/Immunology: Negative for hives, rash, and allergies, Endocrine: Negative for neck swelling, polydipsia, polyuria, polyphagia, and marked weight changes, Hematologic/Lymphatic: Negative for swollen nodes, abnormal bleeding, and unusual bruising. 18:08 Respiratory: Positive for shortness of breath. 18:08 Abdomen/GI: Positive for abdominal pain, abdominal cramps, of the right lower quadrant and left lower quadrant. 18:08 Skin: Positive for pallor. 18:08 Neuro: Positive for PARALYSIS LOWER EXTREMITIES SECONDARY TO TUMOR. Exam: 18:08 Constitutional: The patient appears frail, lethargic. [facility] 18:08 ECG was reviewed by the Attending Physician. 21:34 Constitutional: This is a well developed, well nourished patient who is awake, alert, sl[place] and in no acute distress. Head/Face: Normocephalic, atraumatic. Eyes: Pupils equal round and reactive to light, extra-ocular motions intact. Lids and lashes normal. Conjunctiva and sclera are non-icteric and not injected. Cornea within normal limits. Periorbital areas with no swelling, redness, or edema. ENT: Nares patent. No nasal discharge, no septal abnormalities noted. Tympanic membranes are normal and external auditory canals are clear. Oropharynx with no redness, swelling, or masses, exudates, or evidence of obstruction, uvula midline. Mucous membranes moist. Neck: Trachea midline, no thyromegaly or masses palpated, and no cervical lymphadenopathy. Supple, full range of motion without nuchal rigidity, or vertebral point tenderness. No Meningismus. Chest/axilla: Normal chest wall appearance and motion. Nontender with no deformity. No lesions are appreciated. Cardiovascular: Regular rate and rhythm with a normal S1 and S2. No gallops, murmurs, or rubs. Normal PMI, no JVD. No pulse deficits. Respiratory: Lungs have equal breath sounds bilaterally, clear to auscultation and percussion. No rales, rhonchi or wheezes noted. No increased work of breathing, no retractions or nasal flaring. Back: No spinal tenderness. No costovertebral tenderness. Full range of motion. Male : Normal genitalia with no discharge or lesions. MS/ Extremity: Pulses equal, no cyanosis. Neurovascular intact. Full, normal range of motion. Neuro: Awake and alert, GCS 15, oriented to person, place, time, and situation. Cranial nerves II-XII grossly intact. Motor strength 5/5 in all extremities. Sensory grossly intact. Cerebellar exam normal. Normal gait. Psych: Awake, alert, with orientation to person, place and time. Behavior, mood, and affect are within normal limits. 21:34 Abdomen/GI: Inspection: distension, that is mild, in the right upper quadrant, left upper quadrant, right lower quadrant and left lower quadrant. 21:34 Abdomen/GI: Bowel sounds: normal, Palpation: moderate abdominal tenderness, in the [place] right lower quadrant and left lower quadrant, Liver: no appreciated palpable abnormalities, Hernia: not appreciated. 21:34 Skin: Appearance: Color: pale, Temperature: normal temperature, Moisture: normal moisture, petechiae, not noted, ecchymosis, not noted, abscess, not appreciated, cellulitis, is not appreciated. Vital Signs: 17:50 BP 80 / 43; Pulse 71; Resp 14; Temp 98.1(O); Pulse Ox 94% on R/A; Weight 95.25 kg; db Height 5 ft. 10 in. ; Pain 0/10; 18:00 BP 85 / 51; Pulse 69; Resp 18; Pulse Ox 100% on 2 lpm NC; db 18:45 BP 82 / 49; Pulse 72; Resp 16; Pulse Ox 100% on 2 lpm NC; db 19:30 BP 91 / 59; Pulse 82; Resp 16 S; Pulse Ox 99% on 2 lpm NC; lg3 20:15 BP 90 / 42; Pulse 74; Resp 16 S; Pulse Ox 100% on 2 lpm NC; lg3 21:00 BP 110 / 72; Pulse 88; Resp 17 S; Pulse Ox 99% on 2 lpm NC; lg3 22:04 BP 163 / 88; Pulse 89; Resp 19 S; Pulse Ox 100% on 2 lpm NC; lg3 23:04 BP 147 / 84; Pulse 91; Resp 18 S; Pulse Ox 100% on 2 lpm NC; lg3 08 00:12 BP 161 / 84; Pulse 96; Resp 17 S; Pulse Ox 100% on 2 lpm NC; lg3 01:02 BP 120 / 75; Pulse 103; Resp 16 S; Pulse Ox 100% on 2 lpm NC; lg3 02:34 BP 161 / 86; Pulse 98; Resp 16 S; Pulse Ox 100% on R/A; lg3 03:21 BP 155 / 88; Pulse 107; Resp 16 S; Pulse Ox 100% on R/A; lg3 10/31 17:50 Body Mass Index 30.13 (95.25 kg, 177.8 cm) db 10/31 17:50 Pain Scale: Adult db Darrian Coma Score: 10/31 21:34 Eye Response: spontaneous(4). Motor Response: obeys commands(6). Verbal Response: slo[place] oriented(5). Total: 15. MDM: 17:49 Patient medically screened. [place] 18:11 Differential diagnosis: Anemia CHF exacerbation, Chronic Obstructive Pulmonary Disease [place] appendicitis, UTI, urinary retention, urethritis, pulmonary edema, Pulmonary Embolism reactive airway disease, Sepsis. Antibiotic administration: MEREM. Immunization status: Pneumococcal vaccine: within last 5 years. Influenza vaccine: within last 5 years. Data reviewed: vital signs, nurses notes, EMS record, lab test result(s), EKG, radiologic studies, CT scan, plain films. Consideration of Admission/Observation Escalation of care including admission/observation considered. I considered the following discharge prescriptions or medication management in the emergency department Medications were administered in the Emergency Department. See MAR. Independent interpretation of the following test(s) in the Emergency Department EKG: See my EKG interpretation above. Test considered but Not performed: MRI: MRI SPINE. Care significantly affected by the following chronic conditions: Obesity, Cancer, PROSTRATE CANCER, CVA. Counseling: I had a detailed discussion with the patient and/or guardian regarding: the historical points, exam findings, and any diagnostic results supporting the discharge/admit diagnosis, lab results, radiology results, the need for further work-up and treatment in the hospital. 21:37 ED course: DR MANE TO FOLLOW UP ON CT CHEST, ABD AND PELVIS , ADMIT OR TRANSFER. [facility] 11/01 00:47 ED course: Patient care was assumed from Dr. Jimenez. Patient had to be given total of sp4 4 mg IV Dilaudid for moderate to severe pain control.. Patient has completed a CT chest abdomen pelvis which has revealed signs of proctocolitis. Patient was started on IV Rocephin and Flagyl for acute proctocolitis. Renal medicine was requested to admit patient for pain control also consideration of hospice. . 10/31 17:52 Order name: Basic Metabolic Panel; Complete Time: 20:50 [facility] 10/31 17:52 Order name: CBC with Diff; Complete Time: 19:39 [facility] 10/31 17:52 Order name: LFT's; Complete Time: 20:50 [facility] 10/31 17:52 Order name: Magnesium; Complete Time: 20:50 [facility] 10/31 17:52 Order name: NT PRO-BNP; Complete Time: 20:50 [facility] 10/31 17:52 Order name: PT-INR; Complete Time: 19:39 [facility] 10/31 17:52 Order name: Troponin HS; Complete Time: 20:50 [facility] 10/31 17:52 Order name: Lipase; Complete Time: 20:50 [facility] 10/31 17:52 Order name: Urinalysis w/ reflexes; Complete Time: 22:07 [facility] 10/31 17:52 Order name: Type And Screen; Complete Time: 20:50 [facility] 10/31 17:52 Order name: Blood Culture Adult (2) [facility] 10/31 17:52 Order name: Lactate w/ 2H reflex if indic.; Complete Time: 19:39 [facility] 10/31 17:52 Order name: SARS RAPID; Complete Time: 19:39 [facility] 10/31 17:52 Order name: Flu; Complete Time: 20:50 [facility] 10/31 18:11 Order name: Bb Add On bd 10/31 18:14 Order name: Packed RBC Leukored [facility] 10/31 20:01 Order name: ABO/RH no charge; Complete Time: 20:50 EDVT 10/31 21:37 Order name: Urine Culture [facility] 10/31 17:52 Order name: XRAY Chest (1 view); Complete Time: 18:59 [facility] 10/31 21:09 Order name: CT Chest For PE Angio [facility] 10/31 21:09 Order name: CT Abd/Pelvis - IV Contrast Only [facility] 10/31 17:52 Order name: EKG; Complete Time: 17:53 [facility] 10/31 17:52 Order name: Cardiac monitoring; Complete Time: 19:14 [facility] 10/31 17:52 Order name: EKG - Nurse/Tech; Complete Time: 19:14 [facility] 10/31 17:52 Order name: IV Saline Lock; Complete Time: 19:14 [facility] 10/31 17:52 Order name: Labs collected and sent; Complete Time: 19:14 [facility] 10/31 17:52 Order name: O2 Per Protocol; Complete Time: 19:14 [facility] 10/31 17:52 Order name: O2 Sat Monitoring; Complete Time: 19:14 [facility] 10/31 17:52 Order name: IV Saline Lock - Large Bore; Complete Time: 19:20 [facility] 10/31 18:02 Order name: Misc. Order: ACCESS PORT A CATH; Complete Time: 20:02 [facility] 10/31 20:02 Order name: Herrera; Complete Time: 20:33 lg3 10/31 21:41 Order name: Radha. Order: DR Moe TO DISPO; Complete Time: 22:23 [place] EC/14 18:08 Rate is 74 beats/min. Rhythm is regular. QRS [place] is Normal. AR interval is normal. QRS [place] interval is normal. QT interval is normal. No Q waves. T waves are Normal. T waves are Inverted in leads II, III, aVF, V3, V4, V5, V6. Clinical impression: Abnormal EKG without significant change and No evidence of ischemia. Interpreted by me. Reviewed by me. Administered Medications: 20:02 Drug: NS 0.9% IV 1000 ml Route: IV; Rate: 1 bolus; Site: right antecubital; lg3 20:04 Drug: Famotidine IVP 20 mg Route: IVP; Site: Port-a-cath; lg3 20:46 Follow up: Response: No adverse reaction lg3 20:04 Drug: Meropenem IV 1 grams Route: IV; Rate: per protocol; Site: Port-a-cath; lg3 21:10 Drug: fentaNYL (PF) IVP 25 mcg Route: IVP; Site: Port-a-cath; lg3 21:24 Follow up: Response: No adverse reaction; No change in condition; Pain is unchanged, lg3 physician notified 21:10 Drug: Ondansetron IVP 4 mg Route: IVP; Site: Port-a-cath; lg3 23:03 Follow up: Response: No adverse reaction lg3 21:25 Drug: fentaNYL (PF) IVP 25 mcg Route: IVP; Site: Port-a-cath; lg3 23:03 Follow up: Response: No adverse reaction; No change in condition lg3 22:23 Drug: HYDROmorphone IVP 1 mg Route: IVP; Site: Port-a-cath; lg3 23:03 Follow up: Response: No adverse reaction; No change in condition lg3 23:12 Drug: HYDROmorphone IVP 1 mg Route: IVP; Site: Port-a-cath; lg3 11/01 00:42 Follow up: Response: No adverse reaction; No change in condition; Pain is unchanged, lg3 physician notified 10/31 23:12 Drug: metoCLOPramide IVP 10 mg Route: IVP; Site: Port-a-cath; lg3 11/01 00:43 Follow up: Response: No adverse reaction lg3 00:43 Drug: HYDROmorphone IVP 1 mg Route: IVP; Site: Port-a-cath; lg3 01:20 Follow up: Response: No adverse reaction; Marked relief of symptoms; RASS: Alert and lg3 Calm (0) 01:01 Drug: Rocephin - (NS 0.9% IV 50 ml, Rocephin (cefTRIAXone) IVPB 1 grams) 1 grams Route: lg3 IVPB; Infused Over: 30 mins; Site: Port-a-cath; 01:20 Follow up: Response: No adverse reaction; IV Status: Completed infusion; IV Intake: [id number] 01:20 Drug: metroNIDAZOLE IVPB 500 mg Volume: 100 ml; Route: IVPB; Rate: 200 ml/hr; Infused lg3 Over: 30 mins; Site: Port-a-cath; 02:35 Follow up: Response: No adverse reaction; IV Status: Completed infusion; IV Intake: lg3 100ml 02:30 Drug: HYDROmorphone IVP 1 mg Route: IVP; Site: Port-a-cath; lg3 03:20 Follow up: Response: No adverse reaction; RASS: Alert and Calm (0) lg3 Disposition Summary: 11/01/22 00:49 Hospitalization Ordered Hospitalization Status: Inpatient Admission sp4 Provider: Familia Baker [facility] sp4 Condition: Stable sp4 Problem: new sp4 Symptoms: have improved sp4 Bed/Room Type: Standard sp4 Room Assignment: 209(11/01/22 02:28) eb1 Diagnosis - Left sided colitis without complications sp4 - .Proctocolitis,cancer, history of metastatic cancer, pulmonary metastatic disease, sp4 cancer related pain prostatomegaly, left lower lung mass, acute pelvic pain Forms: - Medication Reconciliation Form sp4 - SBAR form sp4 - Leadership Thank You Letter sp4 Signatures: Dispatcher [employer] EDBlas Zheng MD MD cha Attema, Lee, CERAMICS MACHINE OPERATOR-C CERAMICS MACHINE OPERATOR-Cla1 Kayleigh Fonseca RN RN eb1 Neyda Mckenna RN RN lg3 Mallika Ibarra RN RN db Potepalov, Sergey, MD MD sp4 Corrections: (The following items were deleted from the chart) 10/31 18:05 18:04 Social history: Smoking status: Patient reports use of chewing tobacco. Patient db denies any tobacco usage or history of. db 21:35 18:08 Head/Face: Normocephalic, atraumatic. Eyes: Pupils equal round and reactive to [place] light, extra-ocular motions intact. Lids and lashes normal. Conjunctiva and sclera are non-icteric and not injected. Cornea within normal limits. Periorbital areas with no swelling, redness, or edema. ENT: Nares patent. No nasal discharge, no septal abnormalities noted. Tympanic membranes are normal and external auditory canals are clear. Oropharynx with no redness, swelling, or masses, exudates, or evidence of obstruction, uvula midline. Mucous membranes moist. Neck: Trachea midline, no thyromegaly or masses palpated, and no cervical lymphadenopathy. Supple, full range of motion without nuchal rigidity, or vertebral point tenderness. No Meningismus. Chest/axilla: Normal chest wall appearance and motion. Nontender with no deformity. No lesions are appreciated. Cardiovascular: Regular rate and rhythm with a normal S1 and S2. No gallops, murmurs, or rubs. Normal PMI, no JVD. No pulse deficits. Abdomen/GI: Soft, non-tender, with normal bowel sounds. No distension or tympany. No guarding or rebound. No evidence of tenderness throughout. Back: No spinal tenderness. No costovertebral tenderness. Full range of motion. Male : Normal genitalia with no discharge or lesions. MS/ Extremity: Pulses equal, no cyanosis. Neurovascular intact. Full, normal range of motion. Psych: Awake, alert, with orientation to person, place and time. Behavior, mood, and affect are within normal limits. [place] 11/01 02:28 00:49 sp4 eb1 20:14 00:47 ED course: Patient care was assumed from Dr. Jimenez. Patient had to be given sp4 total of 40 mg IV Dilaudid for moderate to severe pain control.. Patient has completed a CT chest abdomen pelvis which has revealed signs of proctocolitis. Patient was started on IV Rocephin and Flagyl for acute proctocolitis. Renal medicine was requested to admit patient for pain control also consideration of hospice. . sp4
--- NOTE | 2022-11-01 00:49 | ER ---
Nurse's Notes [facility] Name: Blaine Silva Jr Age: 72 yrs Sex: Male : 1950 Arrival Date: 10/31/2022 Time: 17:40 Bed 16 Private MD: Diagnosis: Left sided colitis without complications;.Proctocolitis,cancer, history of metastatic cancer, pulmonary metastatic disease, cancer related pain prostatomegaly, left lower lung mass, acute pelvic pain Presentation: 10/31 17:50 Chief complaint: EMS states: SHORTNESS OF BREATH WITH HYPOTENSION. PATIENT CALLED db BECAUSE PT WAS COLD TO TOUCH WITH DIFFICULTY BREATHING. UPON EMS ARRIVAL PT WITH BP 70/40'S. PT IS PALE. HX OF LUNG CANCER NOT TREATABLE. Coronavirus screen: Vaccine status: Patient reports receiving the 2nd dose of the covid vaccine. Client denies travel out of the [place] in the last 14 days. At this time, the client does not indicate any symptoms associated with coronavirus-19. Ebola Screen: Patient negative for fever greater than or equal to 101.5 degrees Fahrenheit, and additional compatible Ebola Virus Disease symptoms Patient denies exposure to infectious person. Patient denies travel to an Ebola-affected area in the 21 days before illness onset. No symptoms or risks identified at this time. Initial Sepsis Screen: Does the patient meet any 2 criteria? Mean Arterial Pressure (MAP) < 65. Yes Does the patient have a suspected source of infection? No. Patient's initial sepsis screen is negative. Risk Assessment: Do you want to hurt yourself or someone else? Patient reports no desire to harm self or others. Onset of symptoms was October 31, 2022. Care prior to arrival: IV initiated. 20 GA, in the right antecubital area. 17:50 Method Of Arrival: EMS: [facility] db 17:50 Acuity: FAWN 2 db Triage Assessment: 18:04 General: Appears in no apparent distress. comfortable, Behavior is calm, cooperative. db Pain: Denies pain. Respiratory: Reports shortness of breath at rest Airway is patent Respiratory effort is even, unlabored, Respiratory pattern is regular, symmetrical, Onset: The symptoms/episode began/occurred gradually, the patient has mild shortness of breath. Historical: - PMHx: 18:04 Prostate Cancer; Spinal Tumor; stroke; db - PSHx: 18:04 pacemaker; tripple bypass; db - Immunization history:: Adult Immunizations unknown. - Social history:: Smoking status: Patient reports use of chewing tobacco. Screenin:11 [facility] ED Fall Risk Assessment (Adult) History of falling in the last 3 months, db including since admission No falls in past 3 months (0 pts) Confusion or Disorientation No (0 pts) Intoxicated or Sedated No (0 pts) Impaired Gait No (0 pts) Mobility Assist Device Used No (0 pt) Altered Elimination No (0 pt) Score/Fall Risk Level 0 - 2 = Low Risk Oriented to surroundings, Maintained a safe environment. Abuse screen: Denies threats or abuse. Denies injuries from another. Nutritional screening: No deficits noted. Tuberculosis screening: No symptoms or risk factors identified. Assessment: 18:45 Reassessment: COUNSELING SERVICES MANAGER AT BEDSIDE FOR BLOOD DRAW DUE TO DIFFICULT ACCESS. PATIENT db PORT ACCESSED AND WILL FLUSH BUT NOT DRAW BLOOD. 19:11 Reassessment: Patient appears in no apparent distress at this time. Patient and/or db family updated on plan of care and expected duration. Pain level reassessed. Patient is alert, oriented x 3, equal unlabored respirations, skin warm/dry/pink. General: Appears in no apparent distress. comfortable, Behavior is calm, cooperative. Neuro: Level of Consciousness is awake, alert, obeys commands, Oriented to person, place, time, situation. Cardiovascular: Rhythm is Respiratory: Reports shortness of breath at rest Airway is patent Respiratory effort is even, unlabored, Respiratory pattern is regular, symmetrical, Breath sounds are clear bilaterally. 19:20 General: Appears in no apparent distress. comfortable, Behavior is calm, cooperative. lg3 Pain: Complains of pain in back. Neuro: No deficits noted. Thorpe Agitation-Sedation Scale (RASS): 0 - Alert and Calm Level of Consciousness is awake, alert, obeys commands, Oriented to person, place, time, situation. Cardiovascular: Denies chest pain, Capillary refill < 3 seconds Clubbing of nail beds is absent JVD is absent Patient's skin is warm and dry. Respiratory: Reports shortness of breath at rest Airway is patent Respiratory effort is even, unlabored, Respiratory pattern is regular, symmetrical, Breath sounds are clear bilaterally. the patient has mild shortness of breath. GI: No deficits noted. No signs and/or symptoms were reported involving the gastrointestinal system. Abdomen is round non-distended, Bowel sounds present X 4 quads. Abd is soft and non tender X 4 quads. : No deficits noted. No signs and/or symptoms were reported regarding the genitourinary system. EENT: No deficits noted. No signs and/or symptoms were reported regarding the EENT system. Derm: Skin is intact, is healthy with good turgor, Skin is dry, Skin is pale, Skin temperature is warm. Musculoskeletal: Circulation, motion, and sensation intact. Range of motion: paralysis from pelvis down. 20:15 General: PT's port not functioning at this time. physician notified. Port re-accessed. lg3 21:00 Pain: Complains of pain in pelvis and back Pain currently is 10 out of 10 on a pain lg3 scale. Noted to be grimacing, guarding, resistant to movement, restless, Also complains of nausea. GI: Pt is actively vomiting bile. 22:02 General: administered home medications at bedside. medications administered were lg3 carbidopa-levodopa 25-100 tab and new 50mcg Fentanyl patch to right shoulder. physician notifed. 22:04 General: Appears in no apparent distress. uncomfortable, Behavior is anxious. Pain: lg3 Complains of pain in abdomen and pelvis and back Pain currently is 10 out of 10 on a pain scale. 08 00:12 General: Appears in no apparent distress. uncomfortable. Pain: Complains of pain in lg3 abdomen and pelvis and back Pain currently is 10 out of 10 on a pain scale. 01:03 General: Appears in no apparent distress. comfortable, Behavior is calm, cooperative. lg3 Pain: Complains of pain in abdomen and pelvis Pain currently is 6 out of 10 on a pain scale. Respiratory: No deficits noted. Airway is patent Respiratory effort is even, unlabored, Respiratory pattern is. 02:25 General: Appears in no apparent distress. uncomfortable, Behavior is agitated, anxious, lg3 restless. Pain: Complains of pain in pelvis and back Pain currently is 10 out of 10 on a pain scale. Noted to be agitated, moaning, restless. 03:20 General: attempted to call report X3. no answer on 2nd floor. lg3 03:29 General: attempted to call report. no answer on 2nd floor. house notified . lg3 Vital Signs: 10/31 17:50 BP 80 / 43; Pulse 71; Resp 14; Temp 98.1(O); Pulse Ox 94% on R/A; Weight 95.25 kg; db Height 5 ft. 10 in. ; Pain 0/10; 18:00 BP 85 / 51; Pulse 69; Resp 18; Pulse Ox 100% on 2 lpm NC; db 18:45 BP 82 / 49; Pulse 72; Resp 16; Pulse Ox 100% on 2 lpm NC; db 19:30 BP 91 / 59; Pulse 82; Resp 16 S; Pulse Ox 99% on 2 lpm NC; lg3 20:15 BP 90 / 42; Pulse 74; Resp 16 S; Pulse Ox 100% on 2 lpm NC; lg3 21:00 BP 110 / 72; Pulse 88; Resp 17 S; Pulse Ox 99% on 2 lpm NC; lg3 22:04 BP 163 / 88; Pulse 89; Resp 19 S; Pulse Ox 100% on 2 lpm NC; lg3 23:04 BP 147 / 84; Pulse 91; Resp 18 S; Pulse Ox 100% on 2 lpm NC; lg3 11/01 00:12 BP 161 / 84; Pulse 96; Resp 17 S; Pulse Ox 100% on 2 lpm NC; lg3 01:02 BP 120 / 75; Pulse 103; Resp 16 S; Pulse Ox 100% on 2 lpm NC; lg3 02:34 BP 161 / 86; Pulse 98; Resp 16 S; Pulse Ox 100% on R/A; lg3 03:21 BP 155 / 88; Pulse 107; Resp 16 S; Pulse Ox 100% on R/A; lg3 10/31 17:50 Body Mass Index 30.13 (95.25 kg, 177.8 cm) db 10/31 17:50 Pain Scale: Adult db Darrian Coma Score: 10/31 21:34 Eye Response: spontaneous(4). Motor Response: obeys commands(6). Verbal Response: sloane oriented(5). Total: 15. ED Course: 17:48 Patient arrived in ED. db 17:49 Blas Jimenez MD is Attending Physician. sloane 18:00 Missed attempt(s): 20 gauge in left antecubital area. bc6 18:04 Triage completed. db 18:05 Arm band placed on Patient placed in an exam room. db 18:05 Maintain EMS IV. Dressing intact. Good blood return noted. Site clean \T\ dry. Gauge \T\ db site: 20 G RAC. 18:29 XRAY Chest (1 view) In Process Unspecified. EDMS 19:11 Patient has correct armband on for positive identification. Bed in low position. Call db light in reach. Side rails up X2. Client placed on continuous cardiac and pulse oximetry monitoring. NIBP monitoring applied. Warm blanket given. 19:11 Accessed Medi-Port. using ,sterile technique, Clean \T\ dry. Dressing intact. Dressing db loose. No blood return. Flushes easily. 19:17 Report received from EARL Tena. lg3 19:30 Client placed on continuous cardiac and pulse oximetry monitoring. NIBP monitoring lg3 applied. night monitor on. Door closed. Noise minimized. Warm blanket given. 20:00 Neyda Mckenna RN is Primary Nurse. lg3 20:10 Herrera cath inserted, using sterile technique, 18 Fr., by ks, balloon inflated, to nj1 gravity drainage. 20:15 Accessed Medi-Port. Clean \T\ dry. Dressing loose. No blood return. Difficult to flush. lg3 20:30 Accessed Medi-Port. using 20G Nexia IV catheter ,sterile technique, Clean \T\ dry. lg3 Dressing intact. Good blood return. Flushes easily. 20:46 Bb Add On Sent. lg3 20:46 Urinalysis w/ reflexes Sent. lg3 20:46 Blood Culture Adult (2) Sent. lg3 22:07 Attending Physician role handed off by Blas Jimenez MD sp4 22:07 Ra Navarro MD is Attending Physician. sp4 11/01 00:08 CT Chest For PE Angio In Process Unspecified. EDMS 00:09 CT Abd/Pelvis - IV Contrast Only In Process Unspecified. EDMS 00:47 Familia Baker MD is Hospitalizing Provider. sp4 04:03 No provider procedures requiring assistance completed. Patient admitted, IV remains in lg3 place. No redness/swelling at site. Administered Medications: 10/31 20:02 Drug: NS 0.9% IV 1000 ml Route: IV; Rate: 1 bolus; Site: right antecubital; lg3 20:04 Drug: Famotidine IVP 20 mg Route: IVP; Site: [facility]; lg3 20:46 Follow up: Response: No adverse reaction lg3 20:04 Drug: Meropenem IV 1 grams Route: IV; Rate: per protocol; Site: [facility]; lg3 21:10 Drug: fentaNYL (PF) IVP 25 mcg Route: IVP; Site: [facility]; lg3 21:24 Follow up: Response: No adverse reaction; No change in condition; Pain is unchanged, lg3 physician notified 21:10 Drug: Ondansetron IVP 4 mg Route: IVP; Site: [facility]; lg3 23:03 Follow up: Response: No adverse reaction lg3 21:25 Drug: fentaNYL (PF) IVP 25 mcg Route: IVP; Site: [facility]; lg3 23:03 Follow up: Response: No adverse reaction; No change in condition lg3 22:23 Drug: HYDROmorphone IVP 1 mg Route: IVP; Site: [facility]; lg3 23:03 Follow up: Response: No adverse reaction; No change in condition lg3 23:12 Drug: HYDROmorphone IVP 1 mg Route: IVP; Site: [facility]; lg3 11/01 00:42 Follow up: Response: No adverse reaction; No change in condition; Pain is unchanged, lg3 physician notified 10/31 23:12 Drug: metoCLOPramide IVP 10 mg Route: IVP; Site: [facility]; lg3 11/01 00:43 Follow up: Response: No adverse reaction lg3 00:43 Drug: HYDROmorphone IVP 1 mg Route: IVP; Site: [facility]; lg3 01:20 Follow up: Response: No adverse reaction; Marked relief of symptoms; RASS: Alert and lg3 Calm (0) 01:01 Drug: Rocephin - (NS 0.9% IV 50 ml, Rocephin (cefTRIAXone) IVPB 1 grams) 1 grams Route: lg3 IVPB; Infused Over: 30 mins; Site: [facility]; 01:20 Follow up: Response: No adverse reaction; IV Status: Completed infusion; IV Intake: [id number] 01:20 Drug: metroNIDAZOLE IVPB 500 mg Volume: 100 ml; Route: IVPB; Rate: 200 ml/hr; Infused lg3 Over: 30 mins; Site: [facility]; 02:35 Follow up: Response: No adverse reaction; IV Status: Completed infusion; IV Intake: lg3 100ml 02:30 Drug: HYDROmorphone IVP 1 mg Route: IVP; Site: [facility]; lg3 03:20 Follow up: Response: No adverse reaction; RASS: Alert and Calm (0) lg3 Medication: 10/31 19:11 VIS not applicable for this client. db Intake: 11/01 01:20 IV: 50ml; Total: 50ml. lg3 02:35 IV: 100ml; Total: 150ml. lg3 Outcome: 00:49 Decision to Hospitalize by Provider. sp4 04:03 Admitted to Med/surg accompanied by tech, via stretcher, room 209, Report called to lg3 Lisa 04:03 Condition: stable 04:03 Instructed on the need for admit, Demonstrated understanding of instructions. 04:42 Patient left the ED. rv1 Signatures: Dispatcher [employer] EDMS Blas Jimenez MD MD cha Gibson, Lacie RN RN lg3 Mallika Ibarra, RN RN db Mervat Velazquez rv1 Virginia Medina Sergey, MD MD sp4 Yin Queen, RN RN nj1 Corrections: (The following items were deleted from the chart) 10/31 18:05 18:04 Social history: Smoking status: Patient reports use of chewing tobacco. Patient db denies any tobacco usage or history of. db 19:19 19:11 Respiratory: Airway is patent Respiratory effort is even, unlabored, Respiratory db pattern is regular, symmetrical, Breath sounds are clear bilaterally. db 21:13 20:15 BP 90 / 42; Pulse 74bpm; Resp 16bpm; Spontaneous; Pulse Ox 100% RA; lg3 lg3
[2022-11-01] MEDS ORDERED: CEFTRIAXONE 1000 MG/VIAL ONE (01:04)
[2022-11-01] MEDS ORDERED: METRONIDAZOLE 500mg IVPB 500 MG/100 ML BAG IV ONE (01:05)
[2022-11-01] MEDS ORDERED: NA CHLORIDE 0.9% 50 ML ONE (01:05)
[2022-11-01] MEDS ORDERED: HYDROMORPHONE HCL 1 MG/ML INJ IV PRN (04:13)
[2022-11-01] MEDS: HYDROMORPHONE HCL 1 MG/ML INJ IV PRN ×5 (04:58→20:01)
[2022-11-01] MEDS: ONDANSETRON 4 MG/2 ML VIAL IV PRN ×2 (04:58→17:46)
[2022-11-01] MEDS: NA CHLORIDE 0.9% 1,000 ML IV SCH ×2 (04:58→14:28)
[2022-11-01 05:25] LABS: Absolute Lymphocytes (CBC) 1.1 K/uL (0.7-4.9); Hematocrit 37.1 % (39.6-49.0); Lymphocytes % 13.6 % (15.3-44.8); MCV 79.6 fL (80-100); MPV 6.4 fL (7.6-11.3); Platelets 292 thou/uL (152-406); RBC Red Blood Cell Count 4.66 M/uL (4.33-5.43)
[2022-11-01 05:28] VITALS: BMI 30.4
--- NOTE | 2022-11-01 06:17 | P.HP ---
Certification for Inpatient Patient admitted to: Inpatient With expected LOS: >2 Midnights Patient will require the following post-hospital care: None Practitioner: I am a practitioner with admitting privileges, knowledge of patient current condition, hospital course, and medical plan of care. Services: Services provided to patient in accordance with Admission requirements found in Title 42 Section 412.3 of the Code of Federal Regulations <Paul Murillo - Last Filed: 11/01/22 06:12> Patient History Date of Service: 10/31/22 Reason for admission: Proctocolitis History of Present Illness: 72-year-old male with history of metastatic prostate cancer, paraplegia presents emerged department chief complaint of lower abdominal pain. He reports his pain started today, he also had a near syncopal episode prior to arrival after having a bowel movement with severe pain in his lower abdomen. Upon arrival to the ER he was hypertensive and tachycardic which improved with IV fluids. His labs were significant for WBC 9.9, Hgb 11.5, Hct 34.[address] showed proctocolitis. bp improved with ivf and antibiotics. Lactate <2, meets no severe sepsis or septic shock. - Past Medical/Surgical History Has patient received pneumonia vaccine in the past: Yes Diabetic: Yes -: DM -: Stroke -: prostate cancer metatasized -: triple bypass -: multiple back surgerys Psychosocial/ Personal History: Lives at home with . - Social History Smoking Status: Current some day smoker Alcohol use: No CD- Drugs: No Caffeine use: Yes Place of Residence: Home <Paul Murillo - Last Filed: 11/01/22 06:12> Date of Service: 11/01/22 <Familia Baker - Last Filed: 11/01/22 15:41> Allergies No Known Allergies Allergy (Unverified 09/29/21 20:08) Home Medications: Acetaminophen [Tylenol] 325 mg PO Q6H PRN 09/30/21 Aspirin [Aspirin EC 81 MG] 81 mg PO DAILY 09/30/21 Atorvastatin Calcium [Lipitor] 40 mg PO BEDTIME 09/30/21 Carbidopa/Levodopa [Sinemet 25-100 mg Tablet] 3 each PO BID 09/30/21 Clopidogrel Bisulfate [Plavix] 75 mg PO DAILY 09/30/21 Nitroglycerin [Nitrostat*] 0.4 mg SL PRN PRN 09/30/21 Citalopram Hydrobromide [Citalopram HBr] 40 mg PO DAILY 11/01/22 Eszopiclone 3 mg PO BEDTIME 11/01/22 Famotidine 20 mg PO Q12HP 11/01/22 Gabapentin 300 mg PO TID 11/01/22 Gabapentin 600 mg PO BEDTIME 11/01/22 Glimepiride 4 mg PO DAILY 11/01/22 Hydrocodone Bit/Acetaminophen [Hydrocodon-Acetaminoph 2.5-325] 1 each PO TID PRN 11/01/22 Isosorbide Mononitrate [Isosorbide Mononitrate ER] 30 mg PO DAILY 11/01/22 Tamsulosin [Flomax*] 1 cap PO DAILY 11/01/22 methocarbamoL [Methocarbamol] 500 mg PO BID PRN 11/01/22 Review of Systems 10-point ROS is otherwise unremarkable Gastrointestinal: Nausea, Abdominal Pain <Paul Murillo Mario - Last Filed: 11/01/22 06:12> Physical Examination - Vital Signs Temperature: 97.9 F Blood Pressure: 175/85 Pulse: 98 Respirations: 20 Pulse Ox (%): 99 - Physical Exam General: Alert, In no apparent distress, Oriented x3 HEENT: Atraumatic, PERRLA, Mucous membr. moist/pink, EOMI, Sclerae nonicteric Neck: Supple, 2+ carotid pulse no bruit, No LAD, Without JVD or thyroid abnormality Respiratory: Clear to auscultation bilaterally, Normal air movement Cardiovascular: Regular rate/rhythm, Normal S1 S2 Gastrointestinal: Normal bowel sounds, No tenderness Musculoskeletal: No tenderness Integumentary: No rashes Neurological: Normal speech, Normal strength at 5/5 x4 extr, Normal tone, Normal affect - Studies Laboratory Data (last 24 hrs) 10/31/22 10/31/22 10/31/22 18:58 18:58 18:58 WBC 9.90 Hgb 11.5 L Hct 34.5 L Plt Count 301 PT 12.2 INR 1.11 Sodium 135 L Potassium 3.5 BUN 10 Creatinine 0.89 Glucose 151 H Magnesium 2.1 Total Bilirubin 0.7 AST 15 ALT < 10 L Alkaline Phosphatase 59 Lipase 29 Microbiology Data (last 24 hrs): 10/31/22 16:55 Blood - Blood Anaerobic Blood Culture - Final 10/31/22 19:13 Blood - Blood Anaerobic Blood Culture - Final 10/31/22 19:00 Nasopharnyx Influenza Type A Antigen Screen - Final 10/31/22 19:00 Nasopharnyx Influenza Type B Antigen Screen - Final <SerggayatriPaul Mario - Last Filed: 11/01/22 06:12> - Studies Laboratory Data (last 24 hrs) 10/31/22 10/31/22 10/31/22 18:58 18:58 18:58 WBC 9.90 Hgb 11.5 L Hct 34.5 L Plt Count 301 PT 12.2 INR 1.11 Sodium 135 L Potassium 3.5 BUN 10 Creatinine 0.89 Glucose 151 H Magnesium 2.1 Total Bilirubin 0.7 AST 15 ALT < 10 L Alkaline Phosphatase 59 Lipase 29 Microbiology Data (last 24 hrs): 10/31/22 16:55 Blood - Blood Anaerobic Blood Culture - Final 10/31/22 19:13 Blood - Blood Anaerobic Blood Culture - Final 10/31/22 19:00 Nasopharnyx Influenza Type A Antigen Screen - Final 10/31/22 19:00 Nasopharnyx Influenza Type B Antigen Screen - Final <Familia Baker - Last Filed: 11/01/22 15:41> Assessment and Plan - Plan Assessment: Sepsis, intractable abdominal pain secondary to proctocolitis Near syncope History of CVA, spinal tumor resulting in paraplegia UTI Plan: Sepsis, intractable abdominal pain secondary to proctocolitis SIRS criteria present including tachycardia, tachypnea source infection confirmed on CT with proctocolitis. Blood cultures obtained, lactate less than 2. Continue respiratory monitoring Cipro, Flagyl. Also noted to have urinary tract infection, patient helps him self cath at home 2-3 times per day. Herrera catheter was inserted in the emergency department. Near syncope Family describes what sounds like vasovagal syncope was hypotensive on arrival to ER, responded to IV fluids. Will trend troponins, monitor on telemetry. History of CVA, spinal tumor resulting in paraplegia At baseline, 's help care for patient at home. UTI Continue as above, continue antibiotics. DVT PPX: Lovenox Code status: Full Discharge Plan: Home Plan to discharge in: 48 Hours - Advance Directives Does patient have a Living Will: Yes Does patient have a Durable POA for Healthcare: Yes - Code Status/Comfort Care Code Status Assessed: Yes (full code) Critical Care: No Time Spent Managing Pts Care (In Minutes): 55 <Paul Murillo - Last Filed: 11/01/22 06:12> - Plan Patient seen and examined on rounds this morning. Reports having ongoing lower abdominal pain, cramping pain at times. Feels rectal pressure progressively worsening over the last several days - possibly weeks. denies any bleeding General surgery - sylvain Acevedo states similar back pain occurred during prior spinal surgery, but this time having lower abdominal pain and rectal pressure continue antibiotics, supprotive care reports some shortness of breath, trop pending DOS: 11/01 <Familia Baker - Last Filed: 11/01/22 15:41>
--- NOTE | 2022-11-01 07:04 | P.PN ---
Date of Service: 11/02/22 Subjective: Feeling a little better abdominal pain slightly improved at rest, triggered with movement no new / worsening problems afebrile, no BM ROS: 10 point ROS as noted above, otherwise negative Physical Exam: GEN: Alert, oriented, NAD, Herrera in place HEENT: Normal conjunctiva, sclera anicteric CV: Regular rate and rhythm, no edema Pulm: Nonlabored respirations on room air ABD: Soft, mild-mod tendnerness, suprapubic; nondistended Integumentary: No rashes Neuro: Normal speech, normal affect, Paraplegia - waist down Herrera in place vitals reviewed Problem List: Sepsis, intractable abdominal pain secondary to proctocolitis UTI, gram negative bacteriuria Near syncope History of CVA, spinal tumor resulting in paraplegia Sepsis, intractable abdominal pain secondary to proctocolitis CT abdomen (10/31): Mild mucosal thickening along the distal rectosigmoid and rectum which may represent proctocolitis. Sigmoid diverticulosis with no evidence of diverticulitis. Diffuse fatty infiltration of the liver. Blood cultures: pending continue empiric Cipro / Flagyl (11/01-) afebrile, no leukocytosis General surgery consulted continue stool softener, fiber, probiotic consider enema if no relief continue IVF Clear liquids PRN antiemetics UTI, gram negative bacteriuria patient helps him self cath at home 2-3 times per day. Herrera placed in ED urine culture: 4+ GNR continue empiric Cipro / Flagyl () afebrile, no leukocytosis Near syncope Family describes what sounds like vasovagal syncope was hypotensive on arrival to ER, responded to IV fluids. trend troponins -elevated x2, monitor on telemetry Cardiology consulted History of CVA, spinal tumor resulting in paraplegia At baseline, 's help care for patient at home. VTE: Lovenox Code: Full Dispo: Home with HH ~2-3 days ss/cm consulted
[2022-11-01 08:05] LABS: Potassium 3.7 mEq/L (3.5-5.1)
[2022-11-01] MEDS: ENOXAPARIN 40 MG/0.4 ML SQ SCH (08:23)
[2022-11-01] MEDS: METRONIDAZOLE 500mg IVPB 500 MG/100 ML BAG IV SCH ×2 (08:23→16:22)
[2022-11-01] MEDS: CIPROFLOXACIN 400mg IV 400 MG/200 ML BAG IV SCH ×2 (09:13→20:01)
--- NOTE | 2022-11-01 12:41 | RAD REPORT ---
EXAM DESCRIPTION: CT - Abdomen Pelvis W Contrast - 11/01/2022 6:46 am ABD PAIN TECHNIQUE: Contiguous axial images obtained through the abdomen and pelvis following the uneventful administration of IV contrast. Coronal and sagittal reformatted images were provided. This exam was performed according to our departmental dose-optimization program, which includes autom ated exposure control, adjustment of the mA and/or kV according to patient size and/or use of iterati ve reconstruction technique. COMPARISON: July 2021. FINDINGS: Lung bases: See separate report of CTA of the chest. Liver: Diffuse fatty infiltration of the liver. Gallbladder and biliary system: Unremarkable Pancreas: Unremarkable Spleen: Unremarkable Adrenals: Unremarkable Kidneys: Normal renal cortical enhancement. No calculi. No hydronephrosis. GI: Mild mucosal thickening along the distal rectosigmoid and rectum with mild perirectal stranding w hich may represent proctocolitis. Sigmoid diverticulosis with no evidence of diverticulitis. Appendix: No findings to suggest acute appendicitis. Urinary bladder: Herrera catheter in the urinary bladder. Reproductive: Unremarkable as visualized Lymph nodes: No pathologically enlarged lymph nodes. Peritoneum: No focal fluid collection. No free air. Vessels: No abdominal aortic aneurysm. Abdominal wall: Small fat-containing periumbilical ventral hernia. Bones: Sclerotic focus at T11, mild sclerosis of S1, and compression deformity of L1, chronic and unc hanged. IMPRESSION: 1. Mild mucosal thickening along the distal rectosigmoid and rectum with mild perirect al stranding which may represent proctocolitis. 2. Sigmoid diverticulosis with no evidence of diverticulitis. 3. Diffuse fatty infiltration of the liver. Electronically signed by: Lui Vazquez MD 11/01/2022 12:40 AM CDT Due to temporary technical issues with the PACS/Fluency reporting system, reports are being signed by the in house radiologists without review as a courtesy to insure prompt reporting. The interpreting radiologist is fully responsible for the content of the report.
--- NOTE | 2022-11-01 12:46 | RAD REPORT ---
EXAM DESCRIPTION: CT - Chest For Pe Angio - 11/01/2022 6:45 am CLINICAL HISTORY: DYSPNEA TECHNIQUE: Contiguous axial images obtained through the chest during angiographic phase following th e uneventful administration of IV contrast. Sagittal and coronal reformatted images were provided. 3- D MIP reformatted images were provided. This exam was performed according to our departmental dose-optimization program, which includes autom ated exposure control, adjustment of the mA and/or kV according to patient size and/or use of iterati ve reconstruction technique. COMPARISON: CT of the chest abdomen and pelvis from June 09 FINDINGS: Diagnostic quality: There is adequate opacification of the pulmonary arterial tree. Lungs: Small left upper lobe granuloma. Pulmonary nodules in the lower lobes bilaterally are increased in size in the interval since the prio r examination. The largest pleural-based pulmonary nodule in the posterobasal segment of the left low er lobe measures approximately 2.6 cm in diameter transversely, previously measuring approximately 2 cm. Findings are suspicious for metastatic disease, as previously reported. Further evaluation may be obtained with PET/CT or tissue sampling Pleura: No effusion. No pneumothorax. Heart and pericardium: The heart is normal in size. No pericardial effusion. Mediastinum and antonio: No pathologically enlarged lymph nodes. Lower neck and chest wall: Pacemaker in the left pectoral region. Status post median sternotomy. Vessels: No pulmonary arterial filling defects. No thoracic aortic aneurysm. MediPort line in the SVC. Upper abdomen: Unremarkable Bones: Sclerotic focus at T11, which may represent osteoblastic involvement, and compression deformit ies of T4, and L1, chronic and also present on the prior examination IMPRESSION: 1. No pulmonary embolic disease. 2. Pulmonary nodules in the lower lobes bilaterally are increased in size in the interval since the prior examination. The largest pleural-based pulmonary nodule in the posterobasal segment of the lef t lower lobe measures approximately 2.6 cm in diameter transversely, previously measuring approximate ly 2 cm. Findings are suspicious for metastatic disease, as previously reported. 3. Sclerotic focus at T11, which may represent osteoblastic involvement, and compression deformitie s of T4, and L1, chronic and also present on the prior examination. Electronically signed by: Lui Vazquez MD 11/01/2022 12:53 AM CDT Due to temporary technical issues with the PACS/Fluency reporting system, reports are being signed by the in house radiologists without review as a courtesy to insure prompt reporting. The interpreting radiologist is fully responsible for the content of the report.
--- NOTE | 2022-11-01 17:03 | EKG ---
Test Date: 2022-10-31 Test Time: 17:47:40 Bingo Floater: REHAN MEASUREMENT RESULTS: Intervals: Rate: 74 CT: 168 QRSD: 92 QT: 436 QTc: 483 [place]: P: 50 CT: 168 QRS: -4 T: -55 INTERPRETIVE STATEMENTS: Atrial-paced complex(es) Inferior infarct, age undetermined Cannot rule out Anterior infarct, age undetermined Abnormal ECG Compared to ECG 02/02/2022 12:56:19 Ventricular premature complex(es) no longer present Ventricular-paced complex(es) or rhythm no longer present Myocardial infarct finding still present Electronically Signed On 11-01-22 17:02:08 CDT by Eduardo Castle
[2022-11-01] MEDS: DOCUSATE NA 100 MG CAP PO SCH (20:00)
[2022-11-01] MEDS: CARBIDOPA/LEVODOPA 25/100 TAB PO SCH (20:00)
[2022-11-01] MEDS: ATORVASTATIN 40 MG TAB PO SCH (20:01)
[2022-11-01] MEDS: ENSURE CLEAR 200 ML CAN PO SCH (20:09)
[2022-11-02] MEDS: NA CHLORIDE 0.9% 1,000 ML IV SCH ×3 (00:13→20:13)
[2022-11-02] MEDS: METRONIDAZOLE 500mg IVPB 500 MG/100 ML BAG IV SCH ×3 (00:34→16:09)
[2022-11-02] MEDS: HYDROMORPHONE HCL 1 MG/ML INJ IV PRN ×4 (00:34→20:41)
[2022-11-02] MEDS: ONDANSETRON 4 MG/2 ML VIAL IV PRN ×2 (00:34→20:42)
[2022-11-02 04:28] LABS: Absolute Lymphocytes (CBC) 1.5 K/uL (0.7-4.9); Hematocrit 36.1 % (39.6-49.0); Lymphocytes % 17.3 % (15.3-44.8); MCV 79.4 fL (80-100); MPV 6.7 fL (7.6-11.3); Platelets 250 thou/uL (152-406); RBC Red Blood Cell Count 4.54 M/uL (4.33-5.43)
[2022-11-02 04:46] LABS: Potassium 3.4 mEq/L (3.5-5.1)
[2022-11-02] MEDS ORDERED: POTASSIUM CL SA 10 MEQ TAB PO ONE ×2 (06:00→12:56)
[2022-11-02] MEDS ORDERED: FAMOTIDINE 20 MG TAB PO SCH (07:00)
[2022-11-02] MEDS: ENOXAPARIN 40 MG/0.4 ML SQ SCH (08:23)
[2022-11-02] MEDS: CLOPIDOGREL 75 MG TABLET PO SCH (08:24)
[2022-11-02] MEDS: TAMSULOSIN 0.4 MG SR CAP PO SCH (08:24)
[2022-11-02] MEDS: DOCUSATE NA 100 MG CAP PO SCH ×2 (08:24→20:28)
[2022-11-02] MEDS: CITALOPRAM 10 MG TABLET PO SCH (08:24)
[2022-11-02] MEDS: CARBIDOPA/LEVODOPA 25/100 TAB PO SCH ×2 (08:24→20:28)
[2022-11-02] MEDS: ENSURE CLEAR 200 ML CAN PO SCH ×2 (08:25→20:29)
[2022-11-02] MEDS ORDERED: GABAPENTIN 300 MG CAP PO SCH (09:00)
[2022-11-02] MEDS: CIPROFLOXACIN 400mg IV 400 MG/200 ML BAG IV SCH ×2 (09:18→20:27)
--- NOTE | 2022-11-02 10:33 | CON ---
Date of Consultation: 11/01/2022 Brief History Of Present Illness: The patient is a 72-year-old male with a history of metastatic pro state cancer, paraplegia, who presented to the emergency department with chief complaints of lower ab dominal pain and back pain. He states the pain has gotten significantly worse over the past few days and he had a near syncopal episode prior to having a bowel movement. His was present during th e examination and explained to me that he had a large, firm bowel movement followed by significant am ount of liquid stool. Shortly thereafter, he got pale, diaphoretic and as such she called for assist sharonda, brought him to the emergency room. He was treated with multiple radiation treatments before in the past for his prostate cancer. He has had by his description metastatic prostate cancer to the b one and had multiple back surgeries for this type of issue. His pain he states has been present ever since the back surgeries over several months ago and has not significantly changed. He does have so me mild abdominal pain in addition to that, although it is not his primary pain complaint, which is p redominantly located to his abdomen, which he states was similar to previously ever since he had his spinal surgery by his description. He continues to have bowel function, but it has been loose and sm aller in character. He has had some nausea, vomiting, and dry heaves associated with this. His abdo shefali pain is predominantly in the lower quadrants. He has not had similar episodes before in the [facility] as this is a chronic issue per his recollection. Past Medical History: Significant for diabetes, stroke, prostate cancer with metastatic component. Past Surgical History: Includes a triple bypass, multiple back surgeries, and radiation. Social History: He has a significant tobacco use history. He denies alcohol or recreational drug us e. Home Medications: Include Tylenol, aspirin, Lipitor, sentiment, Plavix, Nitrostat, citalopram, Pepci d, gabapentin, glimepiride, [place], isosorbide mononitrate, Flomax, methocarbamol. Review of Systems: A 10-point review of systems other than HPI, denies. Physical Examination: Vital Signs: At the time of my examination; his temperature was 97.9, blood pressure 175/85, pulse r ate 98, respiratory rate 20, pulse ox 99% on room air. General: He seems awake, alert, oriented x3. HEENT: Normocephalic. Sclerae anicteric. Mucous membranes are moist. Oropharynx clear. Neck: Supple without JVD. Chest: Expansion and excursion. Cardiovascular: Regular rate and rhythm. Pulmonary: Clear to auscultation bilaterally. Abdomen: Soft with mild global tenderness to palpation. It is minimal, only to deep palpation, pred ominantly in the bilateral lower quadrants. No rebound. No guarding. No focal peritonitis. Musculoskeletal: No clubbing, cyanosis, or edema. Skin: Warm and dry. Laboratory Data: Revealed a white blood cell count of 8.4, hemoglobin 12.1, hematocrit 37.1, platele t count was 292. His neutrophils are 80%. Sodium 133, potassium 3.7, chloride 113, carbon dioxide 2 1, BUN 10, creatinine 0.8, glucose is 163. His troponin was 239, subsequent check was 230. ProBNP i s 1040. Lipase is 29. His urinalysis showed turbid, 500 leukocyte esterase, greater than 50 white b lood cells, greater than 50 bacteria, trace protein. He had imaging performed, which included a CT o f the abdomen and pelvis, which was read as mild mucosal thickening along the distal rectosigmoid and rectum wall with mild perirectal stranding which may represent proctocolitis, sigmoid diverticulosis without evidence of diverticulitis, diffuse fatty infiltration of the liver. He has a small fat-con taining periumbilical ventral hernia as well. Assessment And Plan: This is a 72-year-old male, who comes in with abdominal pain and evidence of pr octocolitis. 1.IV fluid hydration. 2.Clear liquid diet. 3.Stool softeners. 4.Continue antiemetic treatment. 5.Fiber and probiotics supplementation. 6.If the patient does not have significant improvement of symptoms, we will consider sucralfate enem as for his proctocolitis. 7.I have explained risks, benefits, and alternatives of the above stated plan to the patient and his . They agrees to proceed as indicated. Thank you for this interesting consult. IGLESIA/ASHLEY Voice ID: [id number] Report ID: [id number]
[2022-11-02] MEDS: GABAPENTIN 300 MG CAP PO SCH (20:27)
[2022-11-02] MEDS: ATORVASTATIN 40 MG TAB PO SCH (20:28)
[2022-11-03] MEDS: METRONIDAZOLE 500mg IVPB 500 MG/100 ML BAG IV SCH ×3 (00:14→16:11)
[2022-11-03] MEDS: HYDROMORPHONE HCL 1 MG/ML INJ IV PRN ×6 (00:14→23:19)
[2022-11-03 02:40] LABS: Absolute Lymphocytes (CBC) 1.7 K/uL (0.7-4.9); Hematocrit 31.2 % (39.6-49.0); Lymphocytes % 25.3 % (15.3-44.8); MCV 79.5 fL (80-100); MPV 6.3 fL (7.6-11.3); Platelets 237 thou/uL (152-406); RBC Red Blood Cell Count 3.92 M/uL (4.33-5.43)
[2022-11-03 02:57] LABS: AST/SGOT 23 U/L (15-37); Albumin 2.4 g/dL (3.4-5.0); Alkaline Phosphatase 48 U/L (45-117); BUN Blood Urea Nitrogen 5 mg/dL (7-18); Bicarbonate 27 mEq/L (21-32); Bilirubin Total 0.6 mg/dL (0.2-1.0); Glomerular Filtration Rate 114 ml/min (=/>90); Glucose Level 86 mg/dL (74-106); Potassium 3.5 mEq/L (3.5-5.1); Protein, Total 5.7 g/dL (6.4-8.2); Sodium Level 136 mEq/L (136-145)
[2022-11-03 03:02] LABS: ALT/SGPT < 6 U/L (16-61)
--- NOTE | 2022-11-03 06:59 | P.PN ---
Date of Service: 11/03/22 Subjective: lower abdominal / pelvic pain feels worse today (better compared to initial pain on admission) no BM yet afebrile +nausea ROS: 10 point ROS as noted above, otherwise negative Physical Exam: GEN: Alert, oriented, uncomfortable appearing, Herrera in place HEENT: Normal conjunctiva, sclera anicteric CV: Regular rate and rhythm, trace b/l pedal edema Pulm: Nonlabored respirations at rest on 2L NC ABD: Soft, mod tendnerness, suprapubic; nondistended Neuro: Normal speech, normal affect, Paraplegia - waist down Herrera in place vitals reviewed Problem List: Sepsis, intractable abdominal pain secondary to proctocolitis UTI, gram negative bacteriuria Near syncope History of CVA, 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 Sigmoid diverticulosis with no evidence of diverticulitis. Diffuse fatty infiltration of the liver. CT abdomen (11/03): ordered Blood cultures: NGTD continue Flagyl / Rocephin (11/01-) afebrile, no leukocytosis General surgery consulted continue stool softener, fiber, probiotic consider enema if no relief continue IVF Clear liquids PRN antiemetics UTI, Klebsiella Pneumoniae patient helps him self cath at home 2-3 times per day. Herrera placed in ED urine culture: Klebsiella Pneumoniae partially resistant to cipro Cipro switched to Rocephin (11/03) continue Flagyl / Rocephin (11/01-) afebrile, no leukocytosis Near syncope Family describes what sounds like vasovagal syncope was hypotensive on arrival to ER, responded to IV fluids. trend troponins -elevated x2, monitor on telemetry Cardiology consulted Echo (11/02): 50% EF Very limited exam d/t poor windows History of CVA, spinal tumor resulting in paraplegia At baseline, 's help care for patient at home. Bilateral Lower Lung Nodule CTA (10/31): Pulmonary nodules in the lower lobes bilaterally are increased in size in the interval since the prior examination. The largest pleural-based pulmonary nodule in the posterobasal segment of the left lower lobe measures approximately 2.6cm, previously measuring approximately 2cm suspicious for metastatic disease patient states these were first noted earlier in year and have grown in size; follows with Dr. Baker Parkinson's disease continue sinemet VTE: Lovenox Code: Full Dispo: Home with HH ~2-3 days ss/cm consulted
--- NOTE | 2022-11-03 07:01 | ECHO ---
HEIGHT: 5 ft 10 in WEIGHT: 212 lb 4.8 oz DATE OF STUDY: 11/02/[address]: Familia Baker MD 2-DIMENSIONAL: YES M.MODE: YES DOPPLER: YES COLOR FLOW: YES TDS: PORTABLE: YES DEFINITY: BUBBLE STUDY: DIAGNOSIS: CHEST PAIN CARDIAC HISTORY: CATHERIZATION: YES SURGERY: YES PROSTHETIC VALVE: NO PACEMAKER: YES MEASUREMENTS (cm) DIASTOLIC (NORMALS) SYSTOLIC (NORMALS) IVSd 1.3 (0.6-1.2) LA Diam 3.6 (1.9-4.0) LVEF 50% LVIDd 4.3 (3.5-5.7) LVIDs 3.2 (2.0-3.5) %FS 25% LVPWd 1.3 (0.6-1.2) Ao Diam 3.0 (2.0-3.7) 2 DIMENSIONAL ASSESSMENT: RIGHT ATRIUM: NORMAL LEFT ATRIUM: NORMAL RIGHT VENTRICLE: NORMAL LEFT VENTRICLE: LEFT VENTRICULAR HYPERTROPHY TRICUSPID VALVE: NOT WELL SEEN MITRAL VALVE: TRACE MITRAL REGURGITATION PULMONIC VALVE: NOT WELL SEEN AORTIC VALVE: NORMAL PERICARDIAL EFFUSION: NONE AORTIC ROOT: NORMAL LEFT VENTRICULAR WALL MOTION: NOT ABLE TO EVALUATE DUE TO POOR WINDOWS DOPPLER/COLOR FLOW: SEE BELOW COMMENTS: 1. VERY LIMITED EMAM DUE TO POOR WINDOWS 2. OVERALL LEFT VENTRICULAR EJECTION FRACTION APPEARS NORMAL TECHNOLOGIST: HAMILTON MATHIS
[2022-11-03] MEDS: CITALOPRAM 10 MG TABLET PO SCH (08:29)
[2022-11-03] MEDS: DOCUSATE NA 100 MG CAP PO SCH ×2 (08:29→21:00)
[2022-11-03] MEDS: GABAPENTIN 300 MG CAP PO SCH ×2 (08:29→21:02)
[2022-11-03] MEDS: CLOPIDOGREL 75 MG TABLET PO SCH (08:29)
[2022-11-03] MEDS: CIPROFLOXACIN 400mg IV 400 MG/200 ML BAG IV SCH (08:29)
[2022-11-03] MEDS: CARBIDOPA/LEVODOPA 25/100 TAB PO SCH ×2 (08:29→21:02)
[2022-11-03] MEDS: NA CHLORIDE 0.9% 1,000 ML IV SCH ×2 (08:30→18:23)
[2022-11-03] MEDS: ENSURE CLEAR 200 ML CAN PO SCH ×2 (08:30→21:03)
[2022-11-03] MEDS: ENOXAPARIN 40 MG/0.4 ML SQ SCH (08:30)
[2022-11-03] MEDS: TAMSULOSIN 0.4 MG SR CAP PO SCH (08:30)
[2022-11-03] MEDS ORDERED: POTASSIUM CL SA 10 MEQ TAB PO ONE (09:00)
[2022-11-03] MEDS: CEFTRIAXONE 1,000 MG in NA CHLORIDE 0.9% 50 ML IVPB SCH (10:19)
--- NOTE | 2022-11-03 13:37 | RAD REPORT ---
EXAM DESCRIPTION: CTAbdomen Pelvis W/Wo Contrast - 11/03/2022 1:22 pm CLINICAL HISTORY: Proctocolitis COMPARISON: Abdomen Pelvis W Contrast dated 10/31/2022; Abdomen Pelvis W Contrast dated ; Abdomen Pelvis W Contrast dated 08/10/2021; Abdomen Pelvis W Contrast dated 05/13/2021; Chest Fo r Pe Angio dated 10/31/2022; Chest Abdomen Pelvis W Cont dated 06/09/2022 TECHNIQUE: CT of the abdomen and pelvis was performed with and without contrast. Oral contrast was a dministered. All CT scans are performed using dose optimization technique as appropriate and may include automated exposure control or mA/KV adjustment according to patient size. FINDINGS: Lower chest: Pleural based left lower lobe nodules remains suspicious for metastatic disea se. Coronary artery calcifications. Pacemaker leads. Small left pleural effusion. Liver: No acute abnormality or suspicious lesions. Biliary: No biliary ductal dilatation. Stomach: No significant focal abnormality. Duodenum: No significant focal abnormality. Pancreas: No significant abnormality. Spleen: No significant abnormality. Adrenal: No suspicious lesions. Kidney/ureter: No hydronephrosis. No renal calculi. Left lower pole renal cyst . Retroperitoneum: No retroperitoneal adenopathy. Vascular: No aneurysm. Atherosclerosis. Bowel: No bowel obstruction. Persistent rectal wall thickening. Oral contrast traversed the full bunny l. No fistula identified.. Peritoneum: No ascites or free air. Small fat containing inguinal hernias, right greater than left. Bladder: Decompressed via Herrera catheter. Bladder wall thickening may be treatment related. Reproductive: Prostate fiducial markers. Bones: No acute fracture. Similar osseous metastatic disease and postoperative changes in the spine. Sternotomy. . Other: n/a IMPRESSION: Similar mild rectal wall thickening suggestive of a proctitis. Oral contrast traversed t he entire bowel without obstruction, perforation, or fistula.
[2022-11-03] MEDS: HYDROMORPHONE HCL 0.5 MG/0.5 ML INJ IV PRN (14:09)
--- NOTE | 2022-11-03 19:24 | PN ---
Date of Progress Note: 11/03/2022 Subjective: Seen by bedside. Still having GI symptoms with significant pain and diarrhea. No chest pain. Review of Systems: No chest pain, shortness of breath, orthopnea, cough. No nausea today, but is having diarrhea. No f ever. All other systems reviewed are negative. Physical Examination: Vital signs: Reviewed. Head and Neck: Pupils are equal, reactive to light. Intact eye movements. No JVD. No cervical lym phadenopathy. Neck: Supple. Thyroid is not enlarged. Lungs: Clear to auscultation bilaterally. No rhonchi, wheezing, or crackles. No accessory muscle u se. Heart: Regular. No extra sounds. Abdomen: Soft, nontender. Bowel sounds positive. No organomegaly. No masses or hernia. No rigidi ty or rebound. Extremities: Positive edema bilaterally. No clubbing, cyanosis. Intact pulses. Skin: No rash. Neurologic: Alert, awake. No acute focal deficits appreciated. Investigations: Labs were reviewed. Assessment/recommendations: 1.Elevated troponin. I believe this is demand ischemia. Patient does not have any chest pain. He will need a stress test when his condition is stable to further risk stratify his cardiac condition. We will plan for it once his gastrointestinal issue is resolved. 2.Dyslipidemia, on a statin to be continued. SR/MODL Voice ID: [id number] Report ID: [id number]
[2022-11-03] MEDS: FENTANYL 50 MCG/PATCH TD SCH (21:00)
[2022-11-03] MEDS: methocarbamoL 500 MG TAB PO PRN (21:02)
[2022-11-03] MEDS: ATORVASTATIN 40 MG TAB PO SCH (21:03)
[2022-11-03] MEDS: ISOSORBIDE MONO SR 30 MG TAB PO SCH (21:04)
[2022-11-04] MEDS: METRONIDAZOLE 500mg IVPB 500 MG/100 ML BAG IV SCH ×3 (00:29→16:30)
[2022-11-04] MEDS: NA CHLORIDE 0.9% 1,000 ML IV SCH ×2 (04:06→14:16)
[2022-11-04 04:24] LABS: Absolute Lymphocytes (CBC) 1.6 K/uL (0.7-4.9); Hematocrit 28.8 % (39.6-49.0); Lymphocytes % 31.2 % (15.3-44.8); MCV 78.9 fL (80-100); MPV 6.1 fL (7.6-11.3); Platelets 255 thou/uL (152-406); RBC Red Blood Cell Count 3.66 M/uL (4.33-5.43)
[2022-11-04 04:29] LABS: Magnesium 1.9 mg/dL (1.6-2.4); Potassium 3.2 mEq/L (3.5-5.1)
[2022-11-04] MEDS: HYDROMORPHONE HCL 1 MG/ML INJ IV PRN ×3 (05:28→17:20)
[2022-11-04] MEDS ORDERED: POTASSIUM CL SA 10 MEQ TAB PO ONE (06:20)
--- NOTE | 2022-11-04 06:54 | P.PN ---
Date of Service: 11/04/22 Subjective: Back pain unchanged for several months Pelvic pain progressively worsening over ~3 months Tender to touch from waist down worsening over last few weeks (previously had minimal sensation) Nausea improving ROS: 10 point ROS as noted above, otherwise negative Physical Exam: GEN: Alert, oriented, uncomfortable appearing, Herrera in place HEENT: Normal conjunctiva, sclera anicteric CV: Regular rate and rhythm, trace b/l pedal edema Pulm: Nonlabored respirations at rest on room air ABD: Soft, mod tendnerness, suprapubic; nondistended Neuro: Normal speech, normal affect, Paraplegia - waist down Herrera in place vitals reviewed Problem List: Sepsis, intractable abdominal pain secondary to proctocolitis UTI, Klebsiella Pneumoniae Near syncope History of CVA, 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 Sigmoid diverticulosis with no evidence of diverticulitis. Diffuse fatty infiltration of the liver. CT abdomen (11/03): Similar mild rectal wall thickening suggestive of a proctitis. Oral contrast traversed without obstruction, perforation, or fistula Blood cultures: NGTD continue Flagyl / Rocephin (11/01-) afebrile, no leukocytosis General surgery consulted continue stool softener, fiber, probiotic consider enema if no relief continue IVF Clear liquids PRN antiemetics UTI, Klebsiella Pneumoniae helps him self cath at home 2-3 times per day. with increased risk for UTI given chronic self cathing. Likely etiology of UTI Herrera placed in ED urine culture: Klebsiella Pneumoniae partially resistant to cipro Cipro switched to Rocephin (11/03) continue Flagyl / Rocephin (11/01-) afebrile, no leukocytosis Near syncope Family describes what sounds like vasovagal syncope was hypotensive on arrival to ER, responded to IV fluids. trend troponins -elevated x2, monitor on telemetry Echo (11/02): 50% EF Very limited exam d/t poor windows Cardiology consulted stress test once stable / GI issue resolved vs. 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 Bilateral Lower Lung Nodule CTA (10/31): Pulmonary nodules in the lower lobes bilaterally are increased in size in the interval since the prior examination. The largest pleural-based pulmonary nodule in the posterobasal segment of the left lower lobe measures approximately 2.6cm, previously measuring approximately 2cm suspicious for metastatic disease patient states these were first noted earlier in year and have grown in size; follows with Dr. Baker 11/04 - Discussed code status with patient/family given worsening condition. Wo uld like more time to think about it. Chronic Back pain Back pain ~unchanged for several months PRN pain medication wean IV pain meds as tolerable Parkinson's disease continue sinemet Hyponatremia, resolved likely secondary to hypervolemia resolved with IVF VTE: Lovenox - consider switch to home eliquis Code: Full Dispo: Home with HH ~2-3 days ss/cm consulted 11/04 - Discussed code status and hospice with patient/family given worsening condition. Would like more time to think about it.
[2022-11-04] MEDS: HYDROCODONE/APAP 7.5/325 MG TAB PO PRN ×3 (09:01→21:12)
[2022-11-04] MEDS: CARBIDOPA/LEVODOPA 25/100 TAB PO SCH ×2 (09:01→21:14)
[2022-11-04] MEDS: ISOSORBIDE MONO SR 30 MG TAB PO SCH (09:01)
[2022-11-04] MEDS: DOCUSATE NA 100 MG CAP PO SCH ×2 (09:01→21:13)
[2022-11-04] MEDS: GABAPENTIN 300 MG CAP PO SCH ×2 (09:02→21:13)
[2022-11-04] MEDS: CITALOPRAM 10 MG TABLET PO SCH (09:02)
[2022-11-04] MEDS: TAMSULOSIN 0.4 MG SR CAP PO SCH (09:02)
[2022-11-04] MEDS: ENOXAPARIN 40 MG/0.4 ML SQ SCH (09:02)
[2022-11-04] MEDS: CLOPIDOGREL 75 MG TABLET PO SCH (09:02)
[2022-11-04] MEDS: ENSURE CLEAR 200 ML CAN PO SCH ×2 (09:06→21:00)
[2022-11-04] MEDS: CEFTRIAXONE 1,000 MG in NA CHLORIDE 0.9% 50 ML IVPB SCH (10:04)
--- NOTE | 2022-11-04 19:57 | PN ---
Date of Progress Note: 11/04/2022 Subjective: Seen by bedside, doing clinical well. No chest pain. Review of Systems: No chest pain, shortness of breath, orthopnea, cough. He has diarrhea with abdominal discomfort. Physical Examination: Vital signs: Reviewed. Head and Neck: Pupils are equal, reactive to light. Intact eye movements. No JVD. No cervical lym phadenopathy. Neck is supple. Thyroid is not enlarged. Lungs: Clear to auscultation bilaterally. No rhonchi, wheezing, or crackles. No accessory muscle u se. Heart: Regular rate and rhythm. No extra sounds. Abdomen: Soft, nontender. Bowel sounds positive. No organomegaly. No masses or hernia. No rigidi ty or rebound. Extremities: No clubbing, cyanosis. Intact pulses. Skin: No rash. Neurologic: Alert, awake. No acute focal deficits were appreciated. Investigations: BUN 4, creatinine 0.33. Assessment/recommendations: 1.Elevated troponin. Patient is still having significant gastrointestinal symptoms. We will plan t o revisit with him on Monday. If symptoms resolved, we will obtain a Lexiscan nuclear stress test. Meanwhile, continue aspirin 81 mg daily. 2.Dyslipidemia. Continue statin. SR/MODL Voice ID: [id number] Report ID: [id number]
[2022-11-04] MEDS: Banana Flakes/T-Galactooligos 1 Dose Packet PO SCH (21:00)
[2022-11-04] MEDS: ATORVASTATIN 40 MG TAB PO SCH (21:13)
[2022-11-05] MEDS: HYDROMORPHONE HCL 1 MG/ML INJ IV PRN ×3 (00:03→21:30)
[2022-11-05] MEDS: METRONIDAZOLE 500mg IVPB 500 MG/100 ML BAG IV SCH ×3 (00:24→17:42)
[2022-11-05] MEDS: HYDROMORPHONE HCL 0.5 MG/0.5 ML INJ IV PRN ×2 (05:31→16:53)
[2022-11-05 05:46] LABS: Absolute Lymphocytes (CBC) 1.4 K/uL (0.7-4.9); Lymphocytes % 29.3 % (15.3-44.8); MCV 78.9 fL (80-100); MPV 6.1 fL (7.6-11.3); Platelets 268 thou/uL (152-406); RBC Red Blood Cell Count 3.81 M/uL (4.33-5.43)
[2022-11-05 06:02] LABS: Magnesium 1.9 mg/dL (1.6-2.4); Potassium 3.4 mEq/L (3.5-5.1)
--- NOTE | 2022-11-05 06:54 | P.PN ---
Date of Service: 11/05/22 Subjective: sharp pelvic pain worse today - described as severe pain like "shock" for a few seconds, and taking a few minutes to improve SOB when turning on either side Overall feels like hes improving appetite improving ROS: 10 point ROS as noted above, otherwise negative Physical Exam: GEN: Alert, oriented, uncomfortable appearing, Herrera in place HEENT: Normal conjunctiva, sclera anicteric CV: Regular rate and rhythm (paced), trace b/l pedal edema Pulm: Nonlabored respirations at rest on room air ABD: Soft, mod tendnerness, suprapubic; nondistended Neuro: Normal speech, normal affect, Paraplegia - waist down Herrera in place vitals reviewed Problem List: Sepsis, intractable abdominal pain secondary to proctocolitis neuropathic pain, b/l legs and pelvis UTI, Klebsiella Pneumoniae Near syncope metastatic prostate cancer to spine/lung History of CVA, 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 Sigmoid diverticulosis with no evidence of diverticulitis. Diffuse fatty infiltration of the liver. CT abdomen (11/03): Similar mild rectal wall thickening suggestive of a proctitis. 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 with increased risk for UTI given chronic self cathing. Likely etiology of UTI Herrera placed in ED urine culture: Klebsiella Pneumoniae partially resistant to cipro Cipro switched to Rocephin (11/03) continue Flagyl / Rocephin (11/01-) afebrile, no leukocytosis Near syncope Family describes what sounds like vasovagal syncope was hypotensive on arrival to ER, responded to IV fluids. trend troponins -elevated x2, monitor on telemetry Echo (11/02): 50% EF Very limited exam d/t poor windows Cardiology consulted stress test once stable / GI issue resolved vs. 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 3 months of progressively worsening "pelvic pain" has also noted patient has been reporting pain with palpation of b/l thighs and pelvis previously had zero sensation since January - surgery suspect patient having re-myelination / return of sensation causing majority of his pain was originally taking 300mg in AM and 600mg Gabapentin at bedtime, then stopped taking most morning meds has been on 300mg in AM, 600mg at bedtime here change to 300mg am, 300mg afternoon, 600mg bedtime continue home norco, fentanyl patch will discuss with neuro; unable to get MRI here due to pacemaker; CT w/ w/o contrast of lumbar spine may be helpful to rule out any other cause metastatic prostate cancer to spine/lung Bilateral Lower Lung Nodule CTA (10/31): Pulmonary nodules in the lower lobes bilaterally are increased in size in the interval since the prior examination. largest nodule: posterobasal segment Left lower lobe: ~2.6cm , previously ~ 2cm suspicious for metastatic disease patient states these were first noted earlier in year and have grown in size; follows with Dr. Baker 11/04 - Discussed code status with patient/family given worsening condition. Would like more time to think about it. 11/05 Family reports they have decided on SNF Chronic Back pain Back pain ~unchanged for several months PRN pain medication wean IV pain meds as tolerable Parkinson's disease continue sinemet Hyponatremia, resolved likely secondary to hypervolemia resolved with IVF VTE: Lovenox - consider switch to home eliquis Code: Full Dispo: SNF ss/cm consulted 11/04 - Discussed code status and hospice with patient/family given worsening condition. Would like more time to think about it. 11/05 Family reports they have decided on residential
[2022-11-05] MEDS: POTASSIUM CL SA 10 MEQ TAB PO SCH (08:40)
[2022-11-05] MEDS: CITALOPRAM 10 MG TABLET PO SCH (08:40)
[2022-11-05] MEDS: GABAPENTIN 300 MG CAP PO SCH ×3 (08:40→21:30)
[2022-11-05] MEDS: CARBIDOPA/LEVODOPA 25/100 TAB PO SCH ×2 (08:40→21:30)
[2022-11-05] MEDS: DOCUSATE NA 100 MG CAP PO SCH ×2 (08:40→21:30)
[2022-11-05] MEDS: CLOPIDOGREL 75 MG TABLET PO SCH (08:41)
[2022-11-05] MEDS: ISOSORBIDE MONO SR 30 MG TAB PO SCH (08:41)
[2022-11-05] MEDS: ENOXAPARIN 100 MG/ML SYR SQ SCH ×2 (08:41→21:31)
[2022-11-05] MEDS: HYDROCODONE/APAP 7.5/325 MG TAB PO PRN ×2 (08:41→14:32)
[2022-11-05] MEDS: TAMSULOSIN 0.4 MG SR CAP PO SCH (08:41)
[2022-11-05] MEDS: ENSURE CLEAR 200 ML CAN PO SCH ×2 (08:52→21:00)
[2022-11-05] MEDS: Banana Flakes/T-Galactooligos 1 Dose Packet PO SCH ×2 (08:52→21:00)
[2022-11-05] MEDS: CEFTRIAXONE 1,000 MG in NA CHLORIDE 0.9% 50 ML IVPB SCH (09:55)
[2022-11-05] MEDS ORDERED: GABAPENTIN 300 MG CAP PO SCH (14:30)
[2022-11-05] MEDS: ATORVASTATIN 40 MG TAB PO SCH (21:30)
[2022-11-06] MEDS: HYDROMORPHONE HCL 0.5 MG/0.5 ML INJ IV PRN ×4 (00:44→17:37)
[2022-11-06] MEDS: METRONIDAZOLE 500mg IVPB 500 MG/100 ML BAG IV SCH ×2 (00:44→08:42)
[2022-11-06] MEDS: HYDROMORPHONE HCL 1 MG/ML INJ IV PRN (05:03)
[2022-11-06 05:53] LABS: Magnesium 1.8 mg/dL (1.6-2.4); Potassium 3.5 mEq/L (3.5-5.1)
--- NOTE | 2022-11-06 07:21 | P.PN ---
Date of Service: 11/06/22 Subjective: Feels some improvement of pain today Has been feeling more relief since increased gabapentin afebrile ROS: 10 point ROS as noted above, otherwise negative Physical Exam: GEN: Alert, oriented, uncomfortable appearing HEENT: Normal conjunctiva, sclera anicteric CV: Regular rate and rhythm (paced), trace b/l pedal edema Pulm: Nonlabored respirations at rest on room air ABD: Soft, mod tendnerness, suprapubic; nondistended Neuro: Normal speech, normal affect, Paraplegia - waist down Herrera in place vitals reviewed Problem List: Sepsis, intractable abdominal pain secondary to proctocolitis neuropathic pain, b/l legs and pelvis UTI, Klebsiella Pneumoniae Near syncope 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 Sigmoid diverticulosis with no evidence of diverticulitis. Diffuse fatty infiltration of the liver. CT abdomen (11/03): Similar mild rectal wall thickening suggestive of a proctitis. 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 with increased risk for UTI given chronic self cathing. Likely etiology of UTI Herrera placed in ED Blood cx: No growth urine culture: Klebsiella Pneumoniae partially resistant to cipro Cipro switched to Rocephin (11/03) continue Flagyl / Rocephin (11/01-) afebrile, no leukocytosis Near syncope Family describes what sounds like vasovagal syncope was hypotensive on arrival to ER, responded to IV fluids. trend troponins - elevated x2, monitor on telemetry Echo (11/02): 50% EF Very limited exam d/t poor windows Cardiology consulted stress test once stable / GI issue resolved vs. 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 3 months of progressively worsening "pelvic pain" has also noted patient has been reporting pain with palpation of b/l thighs and pelvis previously had zero sensation since January - surgery suspect patient having re-myelination / return of sensation causing majority of his pain was originally taking 300mg in AM and 600mg Gabapentin at bedtime, then stopped taking most morning meds has been on 300mg in AM, 600mg at bedtime here change to 300mg am, 300mg afternoon, 600mg bedtime increase to 600mg in AM continue home norco, fentanyl patch will discuss with neuro; unable to get MRI here due to pacemaker; CT w/ w/o contrast of lumbar spine may be helpful to rule out any other cause 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 largest nodule: posterobasal segment Left lower lobe: ~2.6cm , previously ~ 2cm suspicious for metastatic disease patient states these were first noted earlier in year and have grown in size; follows with Dr. Baker 11/04 - Discussed code status with patient/family given worsening condition. Would like more time to think about it. 11/05 Family reports they have decided on SNF Chronic Back pain Back pain ~unchanged for several months PRN pain medication wean IV pain meds as tolerable Parkinson's disease continue sinemet Hyponatremia, resolved likely secondary to hypervolemia resolved with IVF VTE: Lovenox Code: Full Dispo: SNF ss/cm consulted
[2022-11-06] MEDS: ENOXAPARIN 100 MG/ML SYR SQ SCH ×2 (08:40→22:24)
[2022-11-06] MEDS: GABAPENTIN 300 MG CAP PO SCH ×3 (08:41→22:19)
[2022-11-06] MEDS: TAMSULOSIN 0.4 MG SR CAP PO SCH (08:42)
[2022-11-06] MEDS: DOCUSATE NA 100 MG CAP PO SCH ×2 (08:42→22:17)
[2022-11-06] MEDS: CLOPIDOGREL 75 MG TABLET PO SCH (08:42)
[2022-11-06] MEDS: CEFTRIAXONE 1,000 MG in NA CHLORIDE 0.9% 50 ML IVPB SCH (08:42)
[2022-11-06] MEDS: ISOSORBIDE MONO SR 30 MG TAB PO SCH (08:42)
[2022-11-06] MEDS: CITALOPRAM 10 MG TABLET PO SCH (08:42)
[2022-11-06] MEDS: POTASSIUM CL SA 10 MEQ TAB PO SCH (08:43)
[2022-11-06] MEDS: Banana Flakes/T-Galactooligos 1 Dose Packet PO SCH ×2 (08:44→21:00)
[2022-11-06] MEDS: ENSURE CLEAR 200 ML CAN PO SCH ×2 (08:44→21:00)
[2022-11-06] MEDS ORDERED: POTASSIUM CL SA 10 MEQ TAB PO ONE (09:00)
[2022-11-06] MEDS: CARBIDOPA/LEVODOPA 25/100 TAB PO SCH ×2 (11:04→22:19)
[2022-11-06] MEDS: HYDROCODONE/APAP 7.5/325 MG TAB PO PRN ×2 (11:07→22:19)
[2022-11-06] MEDS: ATORVASTATIN 40 MG TAB PO SCH (22:19)
[2022-11-06] MEDS: FENTANYL 50 MCG/PATCH TD SCH (22:24)
[2022-11-07] MEDS: HYDROMORPHONE HCL 0.5 MG/0.5 ML INJ IV PRN (06:33)
--- NOTE | 2022-11-07 07:15 | P.PN ---
Date of Service: 11/07/22 Subjective: appears more comfortable laying in bed feels less pain when moving around; less tender today no acute events overnight +diarrhea for a few days ROS: 10 point ROS as noted above, otherwise negative Physical Exam: GEN: Alert, oriented, NAD HEENT: Normal conjunctiva, sclera anicteric CV: Regular rate and rhythm (paced), trace b/l pedal edema Pulm: Nonlabored respirations at rest on 2L NC ABD: Soft, mod tendnerness, suprapubic; nondistended Neuro: Normal speech, normal affect, Paraplegia - waist down; paresthesias in b/l thighs / lower abdomen Herrera in place vitals reviewed Problem List: Sepsis, intractable abdominal pain secondary to proctocolitis neuropathic pain, b/l legs and pelvis UTI, Klebsiella Pneumoniae Near syncope 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 Sigmoid diverticulosis with no evidence of diverticulitis. Diffuse fatty infiltration of the liver. CT abdomen (11/03): Similar mild rectal wall thickening suggestive of a proctitis. 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 with increased risk for UTI given chronic self cathing. Likely etiology of UTI Herrera placed in ED Blood cx: No growth urine culture: Klebsiella Pneumoniae partially resistant to cipro Cipro switched to Rocephin (11/03) continue Flagyl / Rocephin (11/01-) afebrile, no leukocytosis Near syncope Family describes what sounds like vasovagal syncope was hypotensive on arrival to ER, responded to IV fluids. trend troponins - elevated x2, monitor on telemetry Echo (11/02): 50% EF Very limited exam d/t poor windows Cardiology consulted stress test once stable / GI issue resolved vs. 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 3 months of progressively worsening "pelvic pain" has also noted patient has been reporting pain with palpation of b/l thighs and pelvis previously had zero sensation since January - surgery suspect patient having re-myelination / return of sensation causing majority of his pain was originally taking 300mg in AM and 600mg Gabapentin at bedtime, then stopped taking most morning meds has been on 300mg in AM, 600mg at bedtime here change to 300mg am, 300mg afternoon, 600mg bedtime increased to 600mg in AM 11/07 continue home norco, fentanyl patch wean dilaudid will discuss with neuro; unable to get MRI here due to pacemaker; CT w/ w/o contrast of lumbar spine may be helpful to rule out any other cause Neurology consutled 11/07 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 largest nodule: posterobasal segment Left lower lobe: ~2.6cm , previously ~ 2cm suspicious for metastatic disease patient states these were first noted earlier in year and have grown in size; follows with Dr. Baker 11/04 - Discussed code status with patient/family given worsening condition. Would like more time to think about it. 11/05 Family reports they have decided on SNF Chronic Back pain Back pain ~unchanged for several months PRN pain medication wean IV pain meds as tolerable Parkinson's disease continue sinemet Hyponatremia, resolved likely secondary to hypervolemia resolved with IVF VTE: Lovenox Code: Full Dispo: [facility] - [facility] - pending approval ss/cm consulted
[2022-11-07] MEDS: HYDROCODONE/APAP 7.5/325 MG TAB PO PRN (08:44)
[2022-11-07 08:45] LABS: Absolute Lymphocytes (CBC) 1.8 K/uL (0.7-4.9); Hematocrit 33.1 % (39.6-49.0); Lymphocytes % 27.2 % (15.3-44.8); MCV 78.8 fL (80-100); MPV 6.3 fL (7.6-11.3); Platelets 288 thou/uL (152-406)
[2022-11-07] MEDS: TAMSULOSIN 0.4 MG SR CAP PO SCH (08:46)
[2022-11-07] MEDS: CITALOPRAM 10 MG TABLET PO SCH (08:46)
[2022-11-07] MEDS: CARBIDOPA/LEVODOPA 25/100 TAB PO SCH ×2 (08:46→21:38)
[2022-11-07] MEDS: POTASSIUM CL SA 10 MEQ TAB PO SCH (08:46)
[2022-11-07] MEDS: ISOSORBIDE MONO SR 30 MG TAB PO SCH (08:47)
[2022-11-07] MEDS: Banana Flakes/T-Galactooligos 1 Dose Packet PO SCH ×2 (08:47→21:00)
[2022-11-07] MEDS: DOCUSATE NA 100 MG CAP PO SCH ×2 (08:47→21:00)
[2022-11-07] MEDS: GABAPENTIN 300 MG CAP PO SCH ×3 (08:48→21:38)
[2022-11-07] MEDS: ENSURE CLEAR 200 ML CAN PO SCH ×2 (08:48→21:00)
[2022-11-07] MEDS: ENOXAPARIN 100 MG/ML SYR SQ SCH ×2 (08:48→21:38)
[2022-11-07] MEDS: CEFTRIAXONE 1,000 MG in NA CHLORIDE 0.9% 50 ML IVPB SCH (08:49)
[2022-11-07] MEDS: CLOPIDOGREL 75 MG TABLET PO SCH (08:52)
[2022-11-07 08:57] LABS: Albumin 2.5 g/dL (3.4-5.0); Bilirubin Total 0.4 mg/dL (0.2-1.0); Potassium 3.2 mEq/L (3.5-5.1); Protein, Total 5.7 g/dL (6.4-8.2)
--- NOTE | 2022-11-07 21:17 | PN ---
Date of Progress Note: 11/07/2022 Subjective: Seen by bedside. His GI symptoms have improved. There is no further diarrhea, vomiting , or chest pain. No dysuria, polyuria, or urinary urgency. All other systems reviewed are negative. Physical Examination: Vital signs: Reviewed. Head and Neck: Pupils are equal, reactive to light. Intact eye movements. No JVD. No cervical lym phadenopathy. Neck is supple. Thyroid is not enlarged. Lungs: Clear to auscultation bilaterally. No rhonchi, wheezing, or crackles. No accessory muscle u se. Heart: Regular rate and rhythm. No extra sounds. Abdomen: Soft, nontender. Bowel sounds positive. No organomegaly. No masses or hernia. No rigidi ty or rebound. Extremities: No edema, clubbing, or cyanosis. Intact pulses. Neuro: Alert, awake, oriented x3. No acute focal deficits appreciated. Lymph Nodes: No cervical lymphadenopathy. Investigations: Labs were reviewed. Assessment/recommendations: 1.Elevated troponin. Since the GI symptoms have improved, we will obtain a Lexiscan nuclear stress test to further evaluate this issue. 2.Dyslipidemia. Continue statin. SR/MODL Voice ID: [id number] Report ID: [id number]
[2022-11-07] MEDS: ATORVASTATIN 40 MG TAB PO SCH (21:38)
[2022-11-08] MEDS ORDERED: REGADENOSON 0.4 MG/5 ML SYR IV ONE (07:25)
[2022-11-08] MEDS: ENSURE CLEAR 200 ML CAN PO SCH ×2 (09:00→21:00)
[2022-11-08] MEDS: DOCUSATE NA 100 MG CAP PO SCH ×2 (09:00→22:10)
[2022-11-08] MEDS: Banana Flakes/T-Galactooligos 1 Dose Packet PO SCH ×2 (09:00→21:00)
[2022-11-08] MEDS ORDERED: POTASSIUM CL SA 10 MEQ TAB PO ONE (09:00)
[2022-11-08] MEDS: HYDROCODONE/APAP 7.5/325 MG TAB PO PRN ×2 (11:02→22:11)
[2022-11-08] MEDS ORDERED: HYDROMORPHONE HCL 2 MG/ML inj IV ONE (11:41)
[2022-11-08] MEDS: ISOSORBIDE MONO SR 30 MG TAB PO SCH (12:14)
[2022-11-08] MEDS: CITALOPRAM 10 MG TABLET PO SCH (12:14)
[2022-11-08] MEDS: TAMSULOSIN 0.4 MG SR CAP PO SCH (12:15)
[2022-11-08] MEDS: CLOPIDOGREL 75 MG TABLET PO SCH (12:15)
[2022-11-08] MEDS: CARBIDOPA/LEVODOPA 25/100 TAB PO SCH ×2 (12:15→22:10)
[2022-11-08] MEDS: GABAPENTIN 300 MG CAP PO SCH ×3 (12:15→22:09)
[2022-11-08] MEDS: ENOXAPARIN 100 MG/ML SYR SQ SCH ×2 (12:18→22:09)
[2022-11-08] MEDS: CEFTRIAXONE 1,000 MG in NA CHLORIDE 0.9% 50 ML IVPB SCH (12:23)
--- NOTE | 2022-11-08 12:52 | P.PN ---
Subjective Date of Service: 11/08/22 Chief Complaint: Proctocolitis Patient states his pain is better today. He is tolerating diet. He is also tolerating room air with good oxygen saturation. He could not tolerate stress test due to pain. Physical Examination - Vital Signs Temperature: 97.1 F Blood Pressure: 149/76 Pulse: 60 Respirations: 16 Pulse Ox (%): 96 Assessment And Plan - Plan Physical Exam: GEN: Alert, oriented, NAD CV: Regular rate and rhythm, trace b/l pedal edema Pulm: Clear to auscultation bilaterally, no rhonchi or wheezes. ABD: Soft, mod tendnerness, suprapubic; nondistended Neuro: Normal speech, normal affect, Paraplegia - waist down. 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 Sigmoid diverticulosis with no evidence of diverticulitis. Diffuse fatty infiltration of the liver. CT abdomen (11/03): Similar mild rectal wall thickening suggestive of a proctitis. 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 with increased risk for UTI given chronic self cathing. Likely etiology of UTI Herrera placed in ED Blood cx: No growth urine culture: Klebsiella Pneumoniae partially resistant to cipro Cipro switched to Rocephin (11/03) continue Flagyl and Rocephin (11/01-) afebrile, no leukocytosis Near syncope Family describes what sounds like vasovagal syncope was hypotensive on arrival to ER, responded to IV fluids. trend troponins - elevated x2, monitor on telemetry Echo (11/02): 50% EF Very limited exam d/t poor windows Cardiology consulted Patient cannot do the stress test because he could not lay flat due to pain. Further assessment as outpatient. 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 was originally taking 300mg in AM and 600mg Gabapentin at bedtime, then stopped taking most morning meds Gabapentin titrated up to 600mg am, 300mg afternoon, 600mg bedtime continue home norco, fentanyl patch wean dilaudid will discuss with neuro; unable to get MRI here due to pacemaker. Discussed regional pain control. stated patient was previously assessed for pain pump but they have not gotten to it due to intercurrent illnesses and weakness. Follow-up with pain management as outpatient. Pain pump may help decrease the amount of psychotropic medications to improve his mental status. Spouse is looking at skilled rehab. 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 largest nodule: posterobasal segment Left lower lobe: ~2.6cm , previously ~ 2cm suspicious for metastatic disease patient states these were first noted earlier in year and have grown in size; follows with Dr. Baker 11/04 - Discussed code status with patient/family given worsening condition. Would like more time to think about it. Patient is a candidate for hospice. Chronic Back pain Back pain ~unchanged for several months PRN pain medication wean IV pain meds as tolerable Parkinson's disease continue sinemet Hyponatremia, resolved likely secondary to hypovolemia resolved with IVF VTE: Lovenox Code: Full Dispo: [facility] - [facility] - pending approval ss/cm consulted
[2022-11-08] MEDS: POTASSIUM CL SA 10 MEQ TAB PO SCH (13:59)
--- NOTE | 2022-11-08 17:12 | PN ---
Date of Progress Note: 11/08/2022 Subjective: Seen by bedside. Doing clinically well. No chest pain. Review of Systems: No chest pain, shortness of breath, orthopnea, cough. No nausea, vomiting, diarrhea. All other syst ems reviewed and they were negative. Physical Examination: Vital Signs: Reviewed. Head and Neck: Pupils are equal, reactive to light. Intact eye movements. No JVD. No cervical lym phadenopathy. Neck is supple. Thyroid is not enlarged. Lungs: Clear to auscultation bilaterally. No rhonchi, rales, or crackles. No accessory muscle use. Heart: Regular. No extra sounds. Abdomen: Soft, nontender. Bowel sounds positive. No organomegaly. No masses or hernia. No rigidi ty or rebound. Extremities: No clubbing or cyanosis. Intact pulses. Skin: No rash noted. Neurologic: Alert and awake. No acute focal deficits appreciated. Investigations: Labs were reviewed. BUN 3, creatinine 0.43. Assessment/recommendation: 1.Elevated troponin. Continue aspirin and Plavix. There is no active chest pain. Await on stress test. An attempt was made today, but patient could not move due to pain. Pain management is being i mplemented and we will try tomorrow. Otherwise, if it fails, then we will plan for outpatient. 2.Dyslipidemia. Continue statin. 3.Hypertension. Blood pressure is acceptable. Continue to monitor. SR/MODL Voice ID: [id number] Report ID: [id number]
[2022-11-08] MEDS: ATORVASTATIN 40 MG TAB PO SCH (22:11)
[2022-11-09] MEDS ORDERED: HYDROMORPHONE HCL 2 MG/ML inj IV ONE (07:00)
--- NOTE | 2022-11-09 08:36 | RAD REPORT ---
EXAM DESCRIPTION: NM - Rest Stress Cardiac Imaging - 11/09/2022 8:27 am CLINICAL HISTORY: Chest pain. COMPARISON: None. TECHNIQUE: The patient was administered 10. mCi of Tc 99m Sestamibi prior to resting SPECT imaging o f the heart. The patient was then administered 30. MCi of Tc 99m Sestamibi following exercise or pha rmacologic stress. Multiplanar SPECT images were reviewed. FINDINGS: A small area of diminished radiotracer activity involves the lateral left ventricular myoc ardium on stress images. It demonstrates normal radiotracer uptake on rest images. The left ventricular ejection fraction equals 37% IMPRESSION: Small apparent reversible perfusion defect involving the lateral left ventricular myoca rdium may indicate stress-induced ischemia
[2022-11-09] MEDS: Banana Flakes/T-Galactooligos 1 Dose Packet PO SCH (09:00)
[2022-11-09] MEDS: DOCUSATE NA 100 MG CAP PO SCH ×2 (09:00→21:00)
[2022-11-09] MEDS: CEFTRIAXONE 1,000 MG in NA CHLORIDE 0.9% 50 ML IVPB SCH (09:31)
[2022-11-09] MEDS: HYDROCODONE/APAP 7.5/325 MG TAB PO PRN ×2 (09:51→18:31)
[2022-11-09] MEDS: ENOXAPARIN 100 MG/ML SYR SQ SCH ×2 (10:59→21:39)
[2022-11-09] MEDS: CITALOPRAM 10 MG TABLET PO SCH (11:00)
[2022-11-09] MEDS: CARBIDOPA/LEVODOPA 25/100 TAB PO SCH ×2 (11:00→21:39)
[2022-11-09] MEDS: ISOSORBIDE MONO SR 30 MG TAB PO SCH (11:00)
[2022-11-09] MEDS: POTASSIUM CL SA 10 MEQ TAB PO SCH (11:01)
[2022-11-09] MEDS: CLOPIDOGREL 75 MG TABLET PO SCH (11:02)
[2022-11-09] MEDS: GABAPENTIN 300 MG CAP PO SCH ×3 (11:02→21:39)
[2022-11-09] MEDS: TAMSULOSIN 0.4 MG SR CAP PO SCH (11:02)
[2022-11-09] MEDS: ENSURE CLEAR 200 ML CAN PO SCH ×2 (11:04→21:00)
--- NOTE | 2022-11-09 13:07 | TREADPHA ---
DX: ELEVATED TROPONIN Date of Study: 11/08/2022 Ht: 5' 10 " Wt: 212 lb 4.8 oz Consulting Physician: RUBEN MEDICATIONS: NORCO, LIPITOR, CELEXA, PLAVIX, LOVENOX, PEPCID, NEURONTIN, IMDUR, ROBAXIN, ZOFRAN, FLOMAX HISTORY: 72 YEAR OLD MALE WITH COMPLAINTS OF PELVIC PAIN. PATIENT STATES NO KNOWN DRUG ALLERGIES. PATIENT HAS HISTORY OF CORONARY ARTERY BYPASS GRAFT, STENTS, CANCER, DIABETES MELLITUS PHYSICIAL EXAMINATION: RESTING B.P.: 162/69 RESTING H.R.: 61 RESTING EKG: PACED PROTOCOL: PHARMACOLOGIC EXERCISE TIME: 3:30 B.P. AT [place] STRESS: 196/64 IMPRESSION: LEXISCAN INJECTED. CARDIOLITE INJECTED - SEE NUCLEAR MEDICINE REPORT. OCCASIONAL PREMATURE ATRIAL COMPLEXES NOTED DURING TEST. NO SUPRAVENTRICULAR TACHYCARDIA, VENTRICULAR TACHYCARDIA, PREMATURE VENTRICULAR COMPLEXES NOTED. PATIENT DENIES CHEST PAIN. NO ELECTROCARDIOGRAM CHANGES OF ISCHEMIA WITH LEXISCAN.
--- NOTE | 2022-11-09 15:32 | P.PN ---
Subjective Date of Service: 11/09/22 Chief Complaint: Proctocolitis Patient is more awake and alert, states his pain is better today. Physical Examination - Vital Signs Temperature: 97.9 F Blood Pressure: 121/63 Pulse: 74 Respirations: 16 Pulse Ox (%): 96 Assessment And Plan - Plan Physical Exam: GEN: Alert, oriented, NAD CV: Regular rate and rhythm, trace b/l pedal edema Pulm: Clear to auscultation bilaterally, no rhonchi or wheezes. 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 Sigmoid diverticulosis with no evidence of diverticulitis. Diffuse fatty infiltration of the liver. CT abdomen (11/03): Similar mild rectal wall thickening suggestive of a proctitis. Oral contrast traversed without obstruction, perforation, or fistula Seen by General surgery. 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 UTI, Klebsiella Pneumoniae helps him self cath at home 2-3 times per day. with increased risk for UTI given chronic self cathing. Likely etiology of UTI Herrera placed in ED Blood cx: No growth urine culture: Klebsiella Pneumoniae partially resistant to cipro Cipro switched to Rocephin (11/03) continue Flagyl and Rocephin (11/01-) afebrile, no leukocytosis Near syncope Family describes what sounds like vasovagal syncope was hypotensive on arrival to ER, responded to IV fluids. trend troponins - elevated x2, monitor on telemetry Echo (11/02): 50% EF Very limited exam d/t poor windows Cardiology consulted Nuclear stress test shows small reversible ischemia. 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 was originally taking 300mg in AM and 600mg Gabapentin at bedtime, then stopped taking most morning meds Gabapentin titrated up to 600mg am, 300mg afternoon, 600mg bedtime continue home norco, fentanyl patch wean dilaudid will discuss with neuro; unable to get MRI here due to pacemaker. Discussed regional pain control. stated patient was previously assessed for pain pump but they have not gotten to it due to intercurrent illnesses and weakness. Follow-up with pain management as outpatient. Pain pump may help decrease the amount of psychotropic medications to improve his mental status. Spouse is looking at skilled rehab. 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 largest nodule: posterobasal segment Left lower lobe: ~2.6cm , previously ~ 2cm suspicious for metastatic disease patient states these were first noted earlier in year and have grown in size; follows with Dr. Baker Patient is a candidate for hospice. Chronic Back pain Back pain ~unchanged for several months PRN pain medication wean IV pain meds as tolerable Parkinson's disease continue sinemet Hyponatremia, resolved likely secondary to hypovolemia resolved with IVF VTE: Lovenox Code: Full Dispo: [facility] - [facility] - pending approval ss/cm consulted
--- NOTE | 2022-11-09 20:36 | PN ---
Date of Progress Note: 11/09/2022 Subjective: Seen by bedside. Doing clinically well. No chest pain. Stress test showed a very mild defect in the lateral wall that could be reversible. Review of Systems: No chest pain, shortness of breath, orthopnea, or cough. No nausea, vomiting, or diarrhea. All othe r systems were reviewed, they were negative. Objective: Vital Signs: Reviewed. Head and Neck: Pupils are equal, reactive to light. Intact eye movements. No JVD. No cervical lym phadenopathy. Neck is supple. Thyroid is not enlarged. Lungs: Clear to auscultation bilaterally. No rhonchi, wheezing, or crackles. No accessory muscle u se. Heart: Regular rate and rhythm. No extra sounds. Abdomen: Soft, nontender. Bowel sounds positive. No organomegaly. No masses or hernia. No rigidi ty or rebound. Extremities: No clubbing or cyanosis. Intact pulses. Skin: No rash. No nodule. Neurologic: Alert and awake. No acute focal deficits appreciated. Investigations: Labs were reviewed, and on stress test, he has a mild reversible defect at small are a and patient is asymptomatic. Assessment And Plan: 1.Borderline elevated troponin, likely due to demand ischemia from the original sickness that he pre sented in. Stress test showing a very small area of reversible ischemia. I recommend medical manage ment, baby aspirin, high-dose statin, Lipitor and beta-branden and metoprolol XL 25 mg daily and foll ow up as an outpatient. If he becomes symptomatic, then we will plan for coronary angiogram. 2.Hypertension. Blood pressure is controlled. 3.Dyslipidemia. Continue statin. Cardiology will sign off and we will follow patient on an outpatient basis. SR/MODL Voice ID: [id number] Report ID: [id number]
[2022-11-09] MEDS: ATORVASTATIN 40 MG TAB PO SCH (21:35)
[2022-11-09] MEDS: FENTANYL 50 MCG/PATCH TD SCH (21:35)
[2022-11-10] MEDS: HYDROCODONE/APAP 7.5/325 MG TAB PO PRN ×2 (01:35→20:06)
[2022-11-10 03:28] LABS: Absolute Lymphocytes (CBC) 1.7 K/uL (0.7-4.9); Hematocrit 32.8 % (39.6-49.0); Lymphocytes % 29.9 % (15.3-44.8); MCV 79.2 fL (80-100); MPV 6.6 fL (7.6-11.3); Platelets 276 thou/uL (152-406); RBC Red Blood Cell Count 4.14 M/uL (4.33-5.43)
[2022-11-10] MEDS: CEFTRIAXONE 1,000 MG in NA CHLORIDE 0.9% 50 ML IVPB SCH (08:23)
[2022-11-10] MEDS: ENOXAPARIN 100 MG/ML SYR SQ SCH ×2 (08:23→20:05)
[2022-11-10] MEDS: POTASSIUM CL SA 10 MEQ TAB PO SCH (08:25)
[2022-11-10] MEDS: CARBIDOPA/LEVODOPA 25/100 TAB PO SCH ×2 (08:25→20:05)
[2022-11-10] MEDS: GABAPENTIN 300 MG CAP PO SCH ×3 (08:26→20:05)
[2022-11-10] MEDS: CLOPIDOGREL 75 MG TABLET PO SCH (08:26)
[2022-11-10] MEDS: TAMSULOSIN 0.4 MG SR CAP PO SCH (08:26)
[2022-11-10] MEDS: CITALOPRAM 10 MG TABLET PO SCH (08:26)
[2022-11-10] MEDS: ISOSORBIDE MONO SR 30 MG TAB PO SCH (08:29)
[2022-11-10] MEDS: DOCUSATE NA 100 MG CAP PO SCH ×2 (08:47→20:05)
[2022-11-10] MEDS: ENSURE CLEAR 200 ML CAN PO SCH ×2 (08:48→20:05)
--- NOTE | 2022-11-10 14:06 | P.PN ---
Subjective Date of Service: 11/10/22 Chief Complaint: Proctocolitis Patient has no new complaint. He remain awake and alert, and reports good sleep. Physical Examination - Vital Signs Temperature: 96.5 F Blood Pressure: 167/88 Pulse: 68 Respirations: 18 Pulse Ox (%): 97 Assessment And Plan - Plan Physical Exam: GEN: Alert, oriented, NAD CV: Regular rate and rhythm, trace b/l pedal edema Pulm: Clear to auscultation bilaterally, no rhonchi or wheezes. 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 Sigmoid diverticulosis with no evidence of diverticulitis. Diffuse fatty infiltration of the liver. CT abdomen (11/03): Similar mild rectal wall thickening suggestive of a proctitis. Oral contrast traversed without obstruction, perforation, or fistula Seen by General surgery. 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 UTI, Klebsiella Pneumoniae helps him self cath at home 2-3 times per day. with increased risk for UTI given chronic self cathing. Likely etiology of UTI Herrera placed in ED Blood cx: No growth urine culture: Klebsiella Pneumoniae partially resistant to cipro Cipro switched to Rocephin (11/03) continue Flagyl and Rocephin (11/01-) afebrile, no leukocytosis Near syncope Family describes what sounds like vasovagal syncope was hypotensive on arrival to ER, responded to IV fluids. trend troponins - elevated x2, monitor on telemetry Echo (11/02): 50% EF Very limited exam d/t poor windows Cardiology consulted Nuclear stress test shows small reversible ischemia. Cardiology recommended medical management. 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 was originally taking 300mg in AM and 600mg Gabapentin at bedtime, then stopped taking most morning meds Gabapentin titrated up to 600mg am, 300mg afternoon, 600mg bedtime continue home norco, fentanyl patch wean dilaudid will discuss with neuro; unable to get MRI here due to pacemaker. Discussed regional pain control. stated patient was previously assessed for pain pump but they have not gotten to it due to intercurrent illnesses and weakness. Follow-up with pain management as outpatient. Pain pump may help decrease the amount of psychotropic medications to improve his mental status. Spouse is looking at skilled rehab. 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 largest nodule: posterobasal segment Left lower lobe: ~2.6cm , previously ~ 2cm suspicious for metastatic disease patient states these were first noted earlier in year and have grown in size; follows with Dr. Baker Patient is a candidate for hospice. Chronic Back pain Back pain ~unchanged for several months PRN pain medication wean IV pain meds as tolerable Parkinson's disease continue sinemet Hyponatremia, resolved likely secondary to hypovolemia resolved with IVF VTE: Lovenox Code: Full Dispo: SNF -[facility] [place] - pending approval ss/cm consulted
[2022-11-10] MEDS: ATORVASTATIN 40 MG TAB PO SCH (20:05)
[2022-11-11] MEDS: HYDROCODONE/APAP 7.5/325 MG TAB PO PRN ×3 (03:49→21:25)
[2022-11-11] MEDS: DOCUSATE NA 100 MG CAP PO SCH ×2 (09:00→21:00)
[2022-11-11] MEDS: CARBIDOPA/LEVODOPA 25/100 TAB PO SCH ×2 (09:00→21:25)
[2022-11-11] MEDS: CITALOPRAM 10 MG TABLET PO SCH (09:00)
[2022-11-11] MEDS: ENSURE CLEAR 200 ML CAN PO SCH ×2 (09:00→21:26)
[2022-11-11] MEDS: ISOSORBIDE MONO SR 30 MG TAB PO SCH (09:01)
[2022-11-11] MEDS: GABAPENTIN 300 MG CAP PO SCH ×3 (09:01→21:26)
[2022-11-11] MEDS: TAMSULOSIN 0.4 MG SR CAP PO SCH (09:01)
[2022-11-11] MEDS: POTASSIUM CL SA 10 MEQ TAB PO SCH (09:01)
[2022-11-11] MEDS: CEFTRIAXONE 1,000 MG in NA CHLORIDE 0.9% 50 ML IVPB SCH (09:01)
[2022-11-11] MEDS: ENOXAPARIN 100 MG/ML SYR SQ SCH ×2 (09:01→21:25)
[2022-11-11] MEDS: CLOPIDOGREL 75 MG TABLET PO SCH (09:01)
[2022-11-11] MEDS: methocarbamoL 500 MG TAB PO PRN (14:21)
--- NOTE | 2022-11-11 18:00 | P.PN ---
Subjective Date of Service: 11/11/22 Chief Complaint: Proctocolitis Patient has no new complaint. He states that he is eating well and has no problem with sleep. Physical Examination - Vital Signs Temperature: 96.8 F Blood Pressure: 115/62 Pulse: 62 Respirations: 15 Pulse Ox (%): 93 Assessment And Plan - Plan Physical Exam: GEN: Alert, oriented, NAD CV: Regular rate and rhythm, trace b/l pedal edema Pulm: Clear to auscultation bilaterally, no rhonchi or wheezes. 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 Sigmoid diverticulosis with no evidence of diverticulitis. Diffuse fatty infiltration of the liver. CT abdomen (11/03): Similar mild rectal wall thickening suggestive of a proctitis. Oral contrast traversed without obstruction, perforation, or fistula Seen by General surgery. 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 UTI, Klebsiella Pneumoniae helps him self cath at home 2-3 times per day. with increased risk for UTI given chronic self cathing. Likely etiology of UTI Herrera placed in ED Blood cx: No growth urine culture: Klebsiella Pneumoniae partially resistant to cipro Cipro switched to Rocephin (11/03) continue Flagyl and Rocephin (11/01-) afebrile, no leukocytosis Near syncope Family describes what sounds like vasovagal syncope was hypotensive on arrival to ER, responded to IV fluids. trend troponins - elevated x2, monitor on telemetry Echo (11/02): 50% EF Very limited exam d/t poor windows Cardiology consulted Nuclear stress test shows small reversible ischemia. Cardiology recommended medical management. 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 was originally taking 300mg in AM and 600mg Gabapentin at bedtime, then stopped taking most morning meds Gabapentin titrated up to 600mg am, 300mg afternoon, 600mg bedtime continue home norco, fentanyl patch Off dilaudid Unable to get MRI here due to pacemaker. Discussed regional pain control. stated patient was previously assessed for pain pump but they have not gotten to it due to intercurrent illnesses and weakness. Follow-up with pain management as outpatient. Pain pump may help decrease the amount of psychotropic medications to improve his mental status. Spouse is looking at skilled rehab. 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 largest nodule: posterobasal segment Left lower lobe: ~2.6cm , previously ~ 2cm suspicious for metastatic disease patient states these were first noted earlier in year and have grown in size; follows with Dr. Baker Patient is a candidate for hospice. Chronic Back pain Back pain ~unchanged for several months PRN pain medication Continue fentanyl patch and [place]. Parkinson's disease continue sinemet Hyponatremia, resolved likely secondary to hypovolemia resolved with IVF VTE: Lovenox Code: Full Dispo: [facility] -[place] - pending approval ss/cm is following.
[2022-11-11] MEDS: ATORVASTATIN 40 MG TAB PO SCH (21:25)
[2022-11-12] MEDS: POTASSIUM CL SA 10 MEQ TAB PO SCH (08:11)
[2022-11-12] MEDS: CARBIDOPA/LEVODOPA 25/100 TAB PO SCH ×2 (08:11→20:45)
[2022-11-12] MEDS: GABAPENTIN 300 MG CAP PO SCH ×3 (08:12→20:46)
[2022-11-12] MEDS: ISOSORBIDE MONO SR 30 MG TAB PO SCH (08:13)
[2022-11-12] MEDS: CLOPIDOGREL 75 MG TABLET PO SCH (08:13)
[2022-11-12] MEDS: DOCUSATE NA 100 MG CAP PO SCH ×2 (08:13→20:46)
[2022-11-12] MEDS: CITALOPRAM 10 MG TABLET PO SCH (08:14)
[2022-11-12] MEDS: TAMSULOSIN 0.4 MG SR CAP PO SCH (08:14)
[2022-11-12] MEDS: ENOXAPARIN 100 MG/ML SYR SQ SCH ×2 (08:15→20:45)
[2022-11-12] MEDS: HYDROCODONE/APAP 7.5/325 MG TAB PO PRN ×2 (08:15→17:00)
[2022-11-12] MEDS: ENSURE CLEAR 200 ML CAN PO SCH ×2 (08:17→20:47)
--- NOTE | 2022-11-12 12:03 | P.PN ---
Subjective Date of Service: 11/12/22 Chief Complaint: Proctocolitis Patient has no new complaint. No issues overnight. Physical Examination - Vital Signs Temperature: 97.2 F Blood Pressure: 148/72 Pulse: 72 Respirations: 16 Pulse Ox (%): 95 Assessment And Plan - Plan Physical Exam: GEN: Alert, oriented, NAD CV: Regular rate and rhythm, trace b/l pedal edema Pulm: Clear to auscultation bilaterally, no rhonchi or wheezes. 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 Sigmoid diverticulosis with no evidence of diverticulitis. Diffuse fatty infiltration of the liver. CT abdomen (11/03): Similar mild rectal wall thickening suggestive of a proctitis. Oral contrast traversed without obstruction, perforation, or fistula Seen by General surgery. 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 Patient completed antibiotics. UTI, Klebsiella Pneumoniae helps him self cath at home 2-3 times per day. with increased risk for UTI given chronic self cathing. Likely etiology of UTI Herrera placed in ED Blood cx: No growth urine culture: Klebsiella Pneumoniae partially resistant to cipro Cipro switched to Rocephin (11/03) Completed Flagyl and Rocephin (11/01-) afebrile, no leukocytosis Near syncope Family describes what sounds like vasovagal syncope was hypotensive on arrival to ER, responded to IV fluids. trend troponins - elevated x2, monitor on telemetry Echo (11/02): 50% EF Very limited exam d/t poor windows Cardiology consulted Nuclear stress test shows small reversible ischemia. Cardiology recommended medical management. 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 was originally taking 300mg in AM and 600mg Gabapentin at bedtime, then stopped taking most morning meds Gabapentin titrated up to 600mg am, 300mg afternoon, 600mg bedtime continue home norco, fentanyl patch Off dilaudid Unable to get MRI here due to pacemaker. Discussed regional pain control. stated patient was previously assessed for pain pump but they have not gotten to it due to intercurrent illnesses and weakness. Follow-up with pain management as outpatient. Pain pump may help decrease the amount of psychotropic medications to improve his mental status. Spouse is looking at skilled rehab. Patient evaluated by physical therapy. Goal for therapy is independent with transfers. 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 largest nodule: posterobasal segment Left lower lobe: ~2.6cm , previously ~ 2cm suspicious for metastatic disease patient states these were first noted earlier in year and have grown in size; follows with Dr. Baker Patient is a candidate for hospice. Chronic Back pain Back pain ~unchanged for several months PRN pain medication Continue fentanyl patch and [place]. Parkinson's disease continue sinemet Hyponatremia, resolved likely secondary to hypovolemia resolved with IVF VTE: Lovenox Code: Full Dispo: [facility] -awaiting insurance approval ss/cm is following.
[2022-11-12] MEDS: FENTANYL 50 MCG/PATCH TD SCH (20:45)
[2022-11-12] MEDS: ATORVASTATIN 40 MG TAB PO SCH (20:46)
[2022-11-13 03:27] LABS: Absolute Lymphocytes (CBC) 1.9 K/uL (0.7-4.9); Hematocrit 31.9 % (39.6-49.0); Lymphocytes % 26.4 % (15.3-44.8); MCV 79.1 fL (80-100); MPV 6.5 fL (7.6-11.3); Platelets 290 thou/uL (152-406); RBC Red Blood Cell Count 4.04 M/uL (4.33-5.43)
[2022-11-13 03:42] LABS: Potassium 3.7 mEq/L (3.5-5.1)
[2022-11-13] MEDS: ENSURE CLEAR 200 ML CAN PO SCH ×2 (09:00→20:27)
[2022-11-13] MEDS: CARBIDOPA/LEVODOPA 25/100 TAB PO SCH ×2 (10:12→20:26)
[2022-11-13] MEDS: DOCUSATE NA 100 MG CAP PO SCH ×2 (10:13→20:26)
[2022-11-13] MEDS: CITALOPRAM 10 MG TABLET PO SCH (10:13)
[2022-11-13] MEDS: CLOPIDOGREL 75 MG TABLET PO SCH (10:13)
[2022-11-13] MEDS: GABAPENTIN 300 MG CAP PO SCH ×3 (10:14→20:26)
[2022-11-13] MEDS: POTASSIUM CL SA 10 MEQ TAB PO SCH (10:14)
[2022-11-13] MEDS: TAMSULOSIN 0.4 MG SR CAP PO SCH (10:14)
[2022-11-13] MEDS: ISOSORBIDE MONO SR 30 MG TAB PO SCH (10:15)
[2022-11-13] MEDS: ENOXAPARIN 100 MG/ML SYR SQ SCH ×2 (10:15→20:26)
[2022-11-13] MEDS: HYDROCODONE/APAP 7.5/325 MG TAB PO PRN (10:19)
--- NOTE | 2022-11-13 11:45 | P.PN ---
Subjective Date of Service: 11/13/22 Chief Complaint: Proctocolitis Patient has no new complaint. No issues overnight. Patient tolerating his diet. Physical Examination - Vital Signs Temperature: 97.7 F Blood Pressure: 134/67 Pulse: 64 Respirations: 16 Pulse Ox (%): 95 Assessment And Plan - Plan Physical Exam: GEN: Alert, oriented, NAD CV: Regular rate and rhythm, trace b/l pedal edema Pulm: Clear to auscultation bilaterally, no rhonchi or wheezes. 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 Sigmoid diverticulosis with no evidence of diverticulitis. Diffuse fatty infiltration of the liver. CT abdomen (11/03): Similar mild rectal wall thickening suggestive of a proctitis. Oral contrast traversed without obstruction, perforation, or fistula Seen by General surgery. 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 Continue current dose gabapentin. Patient completed antibiotics. UTI, Klebsiella Pneumoniae helps him self cath at home 2-3 times per day. with increased risk for UTI given chronic self cathing. Likely etiology of UTI Herrera placed in ED Blood cx: No growth urine culture: Klebsiella Pneumoniae partially resistant to cipro Cipro switched to Rocephin (11/03) Completed Flagyl and Rocephin (11/01-) afebrile, no leukocytosis Near syncope Family describes what sounds like vasovagal syncope was hypotensive on arrival to ER, responded to IV fluids. trend troponins - elevated x2, monitor on telemetry Echo (11/02): 50% EF Very limited exam d/t poor windows Cardiology consulted Nuclear stress test shows small reversible ischemia. Cardiology recommended medical management. 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 was originally taking 300mg in AM and 600mg Gabapentin at bedtime, then stopped taking most morning meds Gabapentin titrated up to 600mg am, 300mg afternoon, 600mg bedtime continue home norco, fentanyl patch Off dilaudid Unable to get MRI here due to pacemaker. Discussed regional pain control. stated patient was previously assessed for pain pump but they have not gotten to it due to intercurrent illnesses and weakness. Follow-up with pain management as outpatient. Pain pump may help decrease the amount of psychotropic medications to improve his mental status. Patient evaluated by physical therapy. Goal for therapy is independent with transfers. He is slated for skilled rehab placement pending insurance authorization. 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 largest nodule: posterobasal segment Left lower lobe: ~2.6cm , previously ~ 2cm suspicious for metastatic disease patient states these were first noted earlier in year and have grown in size; follows with Dr. Baker Patient is a candidate for hospice. Chronic Back pain Back pain ~unchanged for several months PRN pain medication Continue fentanyl patch and [place]. Parkinson's disease continue sinemet Hyponatremia, resolved likely secondary to hypovolemia resolved with IVF IV fluid discontinued. VTE: Lovenox Code: Full Dispo: [facility] -awaiting insurance approval ss/cm is following.
[2022-11-13] MEDS: ATORVASTATIN 40 MG TAB PO SCH (20:26)
[2022-11-13 21:46] VITALS: O2SAT 94
[2022-11-14 08:07] VITALS: BP 141/77; TEMP 97.2
--- NOTE | 2022-11-14 08:19 | P.DS ---
Admission Date: 11/01/22 Discharge Date: 11/14/22 Disposition: TRANSFER TO SNF - REHAB Reason for Admission: Proctocolitis Brief History of Present Illness: 72-year-old male with history of metastatic prostate cancer, paraplegia presented to the emergency department with a complaint of lower abdominal pain. He reported he had a near syncopal episode prior to arrival after having a bowel movement with severe pain in his lower abdomen. Upon arrival to the ER he was hypertensive and tachycardic which improved with IV fluids. His labs were significant for WBC 9.9, Hgb 11.5, Hct 34.[address] showed proctocolitis. bp improved with ivf and antibiotics. Lactate <2, he did not meet criteria for sepsis. Patient was hospitalized for further management. 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 Sigmoid diverticulosis with no evidence of diverticulitis. Diffuse fatty infiltration of the liver. CT abdomen (11/03): Similar mild rectal wall thickening suggestive of a proctitis. Oral contrast traversed without obstruction, perforation, or fistula Seen by General surgery. 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 Abdominal pain resolved. Patient completed antibiotics. UTI, Klebsiella Pneumoniae helps him self cath at home 2-3 times per day. with increased risk for UTI given chronic self cathing. Likely etiology of UTI Herrera placed in ED Blood cx: No growth urine culture: Klebsiella Pneumoniae partially resistant to cipro Cipro switched to Rocephin (11/03) Completed Flagyl and Rocephin (11/01-) Patient has been afebrile and no leukocytosis Near syncope Family describes what sounds like vasovagal syncope. He was hypotensive on arrival to ER but responded to IV fluids. trend troponins - elevated x2, monitor on telemetry Echo (11/02): 50% EF Very limited exam d/t poor windows Cardiology consulted Nuclear stress test shows small reversible ischemia. Cardiology recommended medical management. 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 was originally taking 300mg in AM and 600mg Gabapentin at bedtime, then stopped taking most morning meds Gabapentin titrated up to 600mg am, 300mg afternoon, 600mg bedtime continued home norco, fentanyl patch She was briefly treated with IV Dilaudid. Unable to get MRI here due to pacemaker. Discussed regional pain control. stated patient was previously assessed for pain pump but they have not gotten to it due to intercurrent illnesses and weakness. Follow-up with pain management as outpatient. Pain pump may help decrease the amount of psychotropic medications to improve his mental status. Patient evaluated by physical therapy. Goal for therapy is independent with transfers. He accepted for skilled rehab placement. 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 largest nodule: posterobasal segment Left lower lobe: ~2.6cm , previously ~ 2cm suspicious for metastatic disease patient states these were first noted earlier in year and have grown in size; follows with Dr. Baker Patient is a candidate for hospice. Chronic Back pain Back pain ~unchanged for several months PRN pain medication Continue fentanyl patch and [place]. Parkinson's disease continue sinemet Hyponatremia, resolved likely secondary to hypovolemia resolved with IVF IV fluid discontinued. Vital Signs/Physical Exam: Temp Pulse Resp BP Pulse Ox 97.2 F 66 14 141/77 H 95 11/14/22 08:00 11/14/22 08:00 11/14/22 08:00 11/14/22 08:00 11/14/22 08:00 General: Alert, In no apparent distress HEENT: Mucous membr. moist/pink Neck: JVD not distended Respiratory: Clear to auscultation bilaterally, Normal air movement Cardiovascular: No edema, Regular rate/rhythm, Normal S1 S2 Gastrointestinal: Normal bowel sounds, Soft and benign, Non-distended Integumentary: No cyanosis Neurological: Other (Paraplegia.) Laboratory Data at Discharge: WBC 7.10 thou/uL (4.3-10.9) 11/13/22 03:03 Hgb 10.8 g/dL (13.6-17.9) L 11/13/22 03:03 Hct 31.9 % (39.6-49.0) L 11/13/22 03:03 Plt Count 290 thou/uL (152-406) 11/13/22 03:03 PT 12.2 SECONDS (9.5-12.5) 10/31/22 18:58 INR 1.11 10/31/22 18:58 Sodium 137 mEq/L (136-145) 11/14/22 02:40 Potassium 4.0 mEq/L (3.5-5.1) 11/14/22 02:40 BUN 7 mg/dL (7-18) 11/14/22 02:40 Creatinine 0.46 mg/dL (0.70-1.30) L 11/14/22 02:40 Glucose 110 mg/dL (74-106) H 11/14/22 02:40 Magnesium 1.8 mg/dL (1.6-2.4) 11/06/22 05:05 Total Bilirubin 0.4 mg/dL (0.2-1.0) 11/07/22 08:29 AST 21 U/L (15-37) 11/07/22 08:29 ALT 12 U/L (16-61) L 11/07/22 08:29 Alkaline Phosphatase 51 U/L (45-117) 11/07/22 08:29 Lipase 29 U/L (13-75) 10/31/22 18:58 Home Medications: Acetaminophen [Tylenol] 325 mg PO Q6H PRN 09/30/21 Aspirin [Aspirin EC 81 MG] 81 mg PO DAILY 09/30/21 Atorvastatin Calcium [Lipitor] 40 mg PO BEDTIME 09/30/21 Carbidopa/Levodopa [Sinemet 25-100 mg Tablet] 4 each PO BID 09/30/21 Clopidogrel Bisulfate [Plavix] 75 mg PO DAILY 09/30/21 Citalopram Hydrobromide [Citalopram HBr] 40 mg PO DAILY 11/01/22 Famotidine 20 mg PO Q12HP 11/01/22 Gabapentin 300 mg PO TID 11/01/22 Gabapentin 600 mg PO BEDTIME 11/01/22 Isosorbide Mononitrate [Isosorbide Mononitrate ER] 30 mg PO DAILY 11/01/22 Tamsulosin [Flomax*] 1 cap PO DAILY 11/01/22 methocarbamoL [Methocarbamol] 500 mg PO BID PRN 11/01/22 Apixaban [Eliquis] 1 tab PO BID 11/02/22 Cholecalciferol (Vitamin D3) [Vitamin D3] 1 tab PO DAILY 11/02/22 Docusate [Colace Cap*] 100 mg PO BID cap 11/14/22 Ensure Clear 237 ml PO BID can 11/14/22 Fentanyl Patch [Duragesic Patch*] 50 mcg TD Q72H #2 patch 11/14/22 Hydrocodone 7.5/APAP 325 [[place] 7.5/325 mg*] 1 tab PO TID PRN #12 tab 11/14/22 Potassium Oral Tab [Klor-Con 10 mEq Tab*] 20 meq PO DAILY tab 11/14/22 New Medications: Fentanyl Patch [Duragesic Patch*] 50 mcg TD Q72H #2 patch Hydrocodone 7.5/APAP 325 [[place] 7.5/325 mg*] 1 tab PO TID PRN #12 tab PRN Reason: Pain Scale 5-7 (Moderate) Physician Discharge Instructions: PROBLEM: Proctocolitis GOAL: Clear understanding of disease process INSTRUCTIONS: Ok to transfer to [facility] Follow up with Primary Care Provider in 1-2 weeks Take new medication as prescribed Contact physician or return to ER for any complications or concerns Call [phone] for any questions regarding hospital stay Diet: AHA Activity: Fall precautions Prescriptions sent to [facility] Services Needed: Care Home Name of Company: [facility] [phone] Date or Referral: 11/08/22 IMMUNIZATION Influenza Vaccine Indicated: Influenza Vaccine Given: Date Given: Pneumonia Vaccine Indicated: No Pneumonia Vaccine Given: Date Given: Diet: AHA Activity: Fall precautions Followup: Deion Mcgrath MD [Primary Care Provider] - Time spent managing pt's care (in minutes): 38
[2022-11-14] MEDS: ENSURE CLEAR 200 ML CAN PO SCH (09:00)
[2022-11-14] MEDS: ENOXAPARIN 100 MG/ML SYR SQ SCH (09:46)
[2022-11-14] MEDS: CITALOPRAM 10 MG TABLET PO SCH (09:47)
[2022-11-14] MEDS: CARBIDOPA/LEVODOPA 25/100 TAB PO SCH (09:47)
[2022-11-14] MEDS: GABAPENTIN 300 MG CAP PO SCH (09:48)
[2022-11-14] MEDS: ISOSORBIDE MONO SR 30 MG TAB PO SCH (09:48)
[2022-11-14] MEDS: TAMSULOSIN 0.4 MG SR CAP PO SCH (09:48)
[2022-11-14] MEDS: CLOPIDOGREL 75 MG TABLET PO SCH (09:49)
[2022-11-14] MEDS: POTASSIUM CL SA 10 MEQ TAB PO SCH (09:49)
[2022-11-14] MEDS: DOCUSATE NA 100 MG CAP PO SCH (09:50)
[2022-11-14] MEDS ORDERED: HYDROCORTISONE 1 % CREAM 30GM TOP PRN (10:05)
[2022-11-14] MEDS ORDERED: HEPARIN 500 UNIT/5 ML SYR IV PRN (12:48)
[2022-11-14] MEDS: HYDROCODONE/APAP 7.5/325 MG TAB PO PRN (13:16)
== END 2022-11-14 13:30 | DRG 698 ==
LOC: ER 17:40 → ERHOLD 11-01 01:42 → 2ND 11-01 03:30
PROVIDERS: ADMIT Hospitalist; ATTEND Internal Medicine
DX: T83.511A Infection and inflammatory reaction due to indwelling urethral catheter, initial encounter (principal); A41.9 Sepsis, unspecified organism; E87.1 Hypo-osmolality and hyponatremia; K51.50 Left sided colitis without complications; K51.30 Ulcerative (chronic) rectosigmoiditis without complications; I24.8 Other forms of acute ischemic heart disease; C79.51 Secondary malignant neoplasm of bone; C78.00 Secondary malignant neoplasm of unspecified lung; Z16.29 Resistance to other single specified antibiotic; N39.0 Urinary tract infection, site not specified; E86.1 Hypovolemia; L89.152 Pressure ulcer of sacral region, stage 2; G89.3 Neoplasm related pain (acute) (chronic); G20 Parkinson's disease; E78.5 Hyperlipidemia, unspecified; K76.0 Fatty (change of) liver, not elsewhere classified; K43.9 Ventral hernia without obstruction or gangrene; M54.9 Dorsalgia, unspecified; K42.9 Umbilical hernia without obstruction or gangrene; G83.10 Monoplegia of lower limb affecting unspecified side; K57.30 Diverticulosis of large intestine without perforation or abscess without bleeding; F17.220 Nicotine dependence, chewing tobacco, uncomplicated; B96.1 Klebsiella pneumoniae [K. pneumoniae] as the cause of diseases classified elsewhere; R91.8 Other nonspecific abnormal finding of lung field; R82.71 Bacteriuria; Z95.1 Presence of aortocoronary bypass graft; Z95.0 Presence of cardiac pacemaker; Z85.46 Personal history of malignant neoplasm of prostate; Z86.73 Personal history of transient ischemic attack (TIA), and cerebral infarction without residual deficits; Z79.82 Long term (current) use of aspirin; Z79.02 Long term (current) use of antithrombotics/antiplatelets; Z79.899 Other long term (current) drug therapy
CPT/HCPCS: 36415; 51702; 71045; 71275; 74177; 74178; 78452; 80048; 80053; 80076; 81001; 83605; 83690; 83735; 83880; 84132; 84484; 85025; 85610; 86850; 86900; 86901; 86920; 87040; 87077; 87086; 87088; 87186; 87804; 87811; 93005; 93017; 93306; 96365; 96367; 96375; 97161; 97530; 99285; A9500; J0696; J0744; J1170; J1642; J1650; J2185; J2405; J2765; J2785; J3010; J7030; Q9967

== ENCOUNTER 2022-12-29 15:18 | Inpatient (IN) | payer OTHER ==
--- OUTSIDE RECORDS SUMMARY | 2022-12-29 15:35 | XMS REPORT | Continuity of Care Document ---
:1950 Author Organization [facility] t Address [address] [place] [address] [place] [id number] Care Team Providers Name Role Phone JOSE M MARQUES Primary Care Physician Unavailable JEFFERSON BRAGG Attending Clinician Unavailable Erika Dias RN Attending Clinician Unavailable JEFFREY QUESADA Attending Clinician Unavailable Esme GONZALEZ, Etienne Smith Attending Clinician Nilo Camacho MD Attending Clinician Alexandria Henley DO Attending Clinician Jeffrey Quesada MD Attending Clinician Tarun GONZALEZ, Angel Attending Clinician Ashley GONZALEZ, Jaki Attending Clinician EDIE ELIAS Attending Clinician Unavailable Edie Elias MD Attending Clinician Provider, Unknown Attending Clinician Unavailable PATE, BROOKE Attending Clinician Unavailable Sangeeta GONZALEZ, Arron Tyson Attending Clinician XENIA BLANCHARD Attending Clinician Unavailable Janell Khan MA Attending Clinician Unavailable Kd GONZALEZ, Ramon Gonzalez Attending Clinician Lois GONZALEZ, Shree Little Attending Clinician Sandra GONZALEZ, Deshawn Attending Clinician Bill GONZALEZ, [place] Attending Clinician Radhames RT, Maite Attending Clinician Unavailable Desi GONZALEZ, Gilles Carrasquillo Attending Clinician Belem RN, Teagan Attending Clinician Doctor Unassigned, [place] Attending Clinician Unavailable STONE ADAME Attending Clinician Unavailable Hamzah Barr DO Attending Clinician Stone Adame MD Attending Clinician Ciro GONZALEZ, Demetrio Sultana Attending Clinician [phone] JEFFERSON BRAGG Attending Clinician Unavailable SAMREEN AGARWAL Attending Clinician Unavailable JOCELYN HIGGINS Attending Clinician Unavailable JEFFERSON BRAGG Admitting Clinician Unavailable JEFFREY QUESADA Admitting Clinician Unavailable Jeffrey Quesada MD Admitting Clinician SHREE KOROMA Admitting Clinician Unavailable STONE ADAME Admitting Clinician Unavailable Stone Adame MD Admitting Clinician JOSE M MARQUES Admitting Clinician Unavailable Payers Payer Name Policy Type Policy Number Effective Date Expiration Date Jessie mitchell [employer] MEDICARE [id number] 2019 PPO 00:00:00 AET[employer] PPO OPEN [id number] [facility] Problems Condition Condition Condition Status Onset Resolution Last Treating Co mments Source Name Details Category Date Date Treatment Clinician Date Other form Other form Disease Active U nivers of dyspnea of dyspnea 11-24 it y of 00:00: [place] 00 Medical Branch Pacemaker Pacemaker Disease Active Uni vers 11-24 ity of 00:00: 00 Medical Branch 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-24 ity of artery artery 00:00: [place] stenosis stenosis 00 Medica l Branch Troponin I Troponin I Disease Active U nivers above above 9-07 [place] 00 [place] PAF PAF Disease Active Univers (paroxysma (paroxysma 11-24 it y of l atrial l atrial 00:00: [place] fibrillati fibrillati 00 Me dical on) on) Branch Chest Chest Disease Active Univers pain, pain, 11-23 ity of unspecif[place] unspecif[place] d type d type 00 Medical Branch Cerebrovas Cerebrovas Disease Active M ethodi cular cular 09-21 st accident accident 00:00: Hospit a (CVA) (CVA) 00 l Sick sinus Sick sinus Disease Active Overview : Methodi syndrome syndrome 09-[address] 00:00: g of this [facility] 00 note l might be different from the original. 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 [place] Natural mother [facility] [place] Social History Social Habit Start Date Stop Date Quantity Comments Source Gender identity [facility] Sexual orientation Univer [facility] Exposure to Not sure University SARS-CoV-2 (event) [facility] History of tobacco Chews Tobacco [facility] use Hospital History SDOH [facility] Alcohol Std Drinks Medica l Center History SDOH [facility] Alcohol Binge Medical Krissy ter History SDOH [facility] Alcohol Comment Medical C enter History of Social 2022-05-25 2022-05-[address] function 00:00:00 00:00:00 Hospital Tobacco use and 2021-09-21 2021-09-21 User of Nondenominational exposure 00:00:00 00:00:00 smokeless Hospital tobacco Alcohol intake 2019-11-05 2019-11-[address] [facility] 00:[facility]:00 00:00:00 non-drinker of Medical Ce nter alcohol (finding) History SDOH 2019-10-25 2019-10-[address] [facility] Alcohol Frequency 00:00:00 00:00:00 [facility] Center Sex Assigned At [address] [facility] 00[facility] Smoking Status Start Date Stop Date Source Ex-smoker 2021-09-21 00:00:00 2021-09-21 00:00:00 [facility] Never smoked tobacco [facility] Medications Ordered Filled Start Stop Current Ordering Indication Dosage Frequency Signature Comments Components Source Medication Medication Date Date Medication? Clinician (SIG) Name Name empaglifloz Yes 1{tbl} Take 1 Un everette in-linaglip 9-12 tablet by ity of tin 21:49: mouth [place] (GLYXAMBI) 04 daily. Medical 25-5 mg Tab Branch gabapentin Yes 300mg Take 1 Univ ers 300 mg 9-12 capsule by ity of capsule 21:49: mouth in [place] 04 the Medical morning Branch and 1 capsule in the evening. isosorbide 0 Yes 30mg Take 1 Unive rs mononitrate 9-12 tablet by ity of 30 mg 24 hr 21:49: [place] tablet 04 the Medical morning. Branch carbidopa-l Yes 4{tbl} Take 4 Un everette evodopa 9-12 tablets by ity of 25-100 mg 21:49: mouth 4 [place] tablet 04 (four) Medical times [place] daily. vilazodone Yes Take by Univ ers (VIIBRYD) 9-12 mouth. ity of 10 mg Tab 21:49: [place] [address] Medical Branch eszopiclone Yes 3mg Take 3 mg U nivers 3 mg tablet 9-12 by mouth ity of 21:49: at [place] [address] bedtime. Medical Branch melatonin Yes Take by Unive rs 10 mg Tab 9-12 mouth. ity of 21:49: [place] [address] Medical Branch Cholecalcif Yes 5000U Take 1 Uni vers arjun, 9-12 capsule by ity of Vitamin D3, 21:49: mouth in [place] 125 mcg 04 the Medical (5,000 morning. Branch unit) capsule nystatin Yes 1{appli Apply 1 Uni vers 100,000 9-12 cation} Applicatio ity of unit/gram 21:49: n to [facility] 04 area(s) in Medical the Branch morning and 1 Applicatio n in the evening. For rash polyethylen Yes 17g Take 17 g U nivers e glycol 9-12 by mouth ity of 3350 21:49: in the [place] (MIRALAX) 04 morning. Medica l 17 Branch gram/dose powder Lidocaine 5 Yes 1{appli Apply 1 Univers % cream 9-12 cation} Applicatio ity of 21:49: n to [place] [address] area(s) in Medical the Branch morning and 1 Applicatio n in the evening. Apply bid to sides of neck for pain bisacodyL 3-0 Yes 10mg Insert 1 Univ ers 10 mg 9-12 Suppositor ity of suppository 21:49: y into [place] [facility] 04 rectum Medical once daily Branch as needed for Constipati on. famotidine 2022-0 Yes 20mg Take 1 Unive rs 20 mg 9-12 tablet by ity of tablet 21:49: mouth in [place] [address] the Medical morning Branch and 1 tablet in the evening. FENTANYL 3-0 Yes 50ug/h Apply 50 Uni vers TRANSDERMAL 9-12 mcg/hr to ity of 21:49: skin every [place] [address] 3 (three) Medical days. Branch docusate 2022-0 Yes 100mg Take 1 Univer s (COLACE) 9-12 capsule by ity o f 100 mg 21:49: mouth in [place] [address] the Medical morning. Branch citalopram 2022-0 Yes 40mg Take 1 Unive rs 40 mg 9-12 tablet by ity of tablet 21:49: mouth in [place] [address] the Medical morning. Branch HYDROcodone 2022-0 Yes 1{tbl} Take 1 Un everette -acetaminop 9-12 tablet by ity of hen (NORCO) 21:49: mouth [place] 7.5-325 mg 04 the Medical per tablet morning Branch and 1 tablet in the evening. pain tamsulosin 2022-0 Yes .4mg Take 1 Unive rs 0.4 mg 24 9-12 capsule by ity of hr capsule 21:49: mouth at [facility] 04 bedtime. Medical Branch methocarbam 2022-0 Yes 500mg Take 1 Uni vers oL 500 mg 9-12 tablet by ity o f tablet 21:49: mouth in [place] [address] the Medical morning Branch and 1 tablet in the evening. acetaminoph 2022-0 Yes 2{capsu Take 2 U nivers en 9-12 le} capsules ity of (TYLENOL) 21:49: [place] 325 [place] Cap 04 every 6 Medica l (six) Branch hours as needed for Pain (scale 1-3) or Fever (temp >100.4F). empaglifloz 2023-0 Yes 1{tbl} Take 1 Un everette in-linaglip 9-12 tablet by ity of tin 21:49: mouth [place] (GLYXAMBI) 04 daily. Medical 25-5 mg Tab Branch gabapentin 0 Yes 300mg Take 1 Univ ers 300 mg 9-12 capsule by ity of capsule 21:49: mouth in [place] 04 the Medical morning Branch and 1 capsule in the evening. isosorbide 0 Yes 30mg Take 1 Unive rs mononitrate 9-12 tablet by ity of 30 mg 24 hr 21:49: [place] tablet 04 the Medical morning. Branch carbidopa-l Yes 4{tbl} Take 4 Un everette evodopa 9-12 tablets by ity of 25-100 mg 21:49: mouth 4 [place] tablet 04 (four) Medical times [place] daily. vilazodone Yes Take by Univ ers (VIIBRYD) 9-12 mouth. ity of 10 mg Tab 21:49: [place] [address] Medical Branch eszopiclone Yes 3mg Take 3 mg U nivers 3 mg tablet 9-12 by mouth ity of 21:49: at [place] [address] bedtime. Medical Branch melatonin 0 Yes Take by Unive rs 10 mg Tab 9-12 mouth. ity of 21:49: [place] [address] Medical Branch Cholecalcif Yes 5000U Take 1 Uni vers arjun, 9-12 capsule by ity of Vitamin D3, 21:49: [place] 125 mcg 04 the Medical (5,000 morning. Branch unit) capsule nystatin Yes 1{appli Apply 1 Uni vers 100,000 9-12 cation} Applicatio ity of unit/gram 21:49: n to [place] cream 04 area(s) in Medical the Branch morning and 1 Applicatio n in the evening. For rash polyethylen 0 Yes 17g Take 17 g U nivers e glycol 9-12 by mouth ity of 3350 21:49: in the [place] (MIRALAX) 04 morning. Medica l 17 Branch gram/dose powder Lidocaine 5 Yes 1{appli Apply 1 Univers % cream 9-12 cation} Applicatio ity of 21:49: n to [place] 04 area(s) in Medical the Branch morning and 1 Applicatio n in the evening. Apply bid to sides of neck for pain bisacodyL 2022-0 Yes 10mg Insert 1 Univ ers 10 mg 9-12 Suppositor ity of suppository 21:49: [place] 04 rectum Medical once daily Branch as needed for Constipati on. famotidine 2022-0 Yes 20mg Take 1 Unive rs 20 mg 9-12 tablet by ity of tablet 21:49: mouth in [place] 04 the Medical morning Branch and 1 tablet in the evening. FENTANYL 3-0 Yes 50ug/h Apply 50 Uni vers TRANSDERMAL 9-12 mcg/hr to ity of 21:49: skin every [place] [address] 3 (three) Medical days. Branch docusate 2022-0 Yes 100mg Take 1 Univer s (COLACE) 9-12 capsule by ity o f 100 mg 21:49: mouth in [facility] 04 the Medical morning. Branch citalopram 2022-0 Yes 40mg Take 1 Unive rs 40 mg 9-12 tablet by ity of tablet 21:49: mouth in [place] 04 the Medical morning. Branch HYDROcodone 2022-0 Yes 1{tbl} Take 1 Un everette -acetaminop 9-12 tablet by ity of hen (NORCO) 21:49: mouth [place] 7.5-325 mg 04 the Medical per tablet morning Branch and 1 tablet in the evening. pain tamsulosin 2022-0 Yes .4mg Take 1 Unive rs 0.4 mg 24 9-12 capsule by ity of hr capsule 21:49: mouth at [facility] 04 bedtime. Medical Branch methocarbam 2022-0 Yes 500mg Take 1 Uni vers oL 500 mg 9-12 tablet by ity o f tablet 21:49: mouth in [place] 04 the Medical morning Branch and 1 tablet in the evening. acetaminoph 2022-0 Yes 2{capsu Take 2 U nivers en 9-12 le} capsules ity of (TYLENOL) 21:49: [place] 325 mg Cap 04 every 6 Medica l (six) Branch hours as needed for Pain (scale 1-3) or Fever (temp >100.4F). empaglifloz 2022-0 Yes 1{tbl} Take 1 Un everette in-linaglip 9-12 tablet by ity of tin 21:49: mouth [place] (GLYXAMBI) 04 daily. Medical 25-5 mg Tab Branch gabapentin 0 Yes 300mg Take 1 Univ ers 300 mg 9-12 capsule by ity of capsule 21:49: mouth in [place] 04 the Medical morning Branch and 1 capsule in the evening. isosorbide 2022-0 Yes 30mg Take 1 Unive rs mononitrate 9-12 tablet by ity of 30 mg 24 hr 21:49: mouth [place] tablet 04 the Medical morning. Branch carbidopa-l 0 Yes 4{tbl} Take 4 Un everette evodopa 9-12 tablets by ity of 25-100 mg 21:49: mouth 4 [place] tablet 04 (four) Medical times [place] daily. vilazodone 0 Yes Take by Univ ers (VIIBRYD) 9-12 mouth. ity of 10 mg Tab 21:49: [place] [address] Medical Branch eszopiclone 0 Yes 3mg Take 3 mg U nivers 3 mg tablet 9-12 by mouth ity of 21:49: at [place] [address] bedtime. Medical Branch melatonin 0 Yes Take by Unive rs 10 mg Tab 9-12 mouth. ity of 21:49: [place] [address] Medical Branch Cholecalcif 0 Yes 5000U Take 1 Uni vers arjun, 9-12 capsule by ity of Vitamin D3, 21:49: mouth in [place] 125 mcg 04 the [facility] (5,000 morning. Branch unit) capsule nystatin Yes 1{appli Apply 1 Uni vers 100,000 9-12 cation} Applicatio ity of unit/gram 21:49: n to [place] cream area(s) in Medical the Branch morning and 1 Applicatio n in the evening. For rash polyethylen 0 Yes 17g Take 17 g U nivers e glycol 9-12 by mouth ity of 3350 21:49: in the [place] (MIRALAX) 04 morning. Medica l 17 [place] gram/dose powder Lidocaine 5 Yes 1{appli Apply 1 Univers % cream 9-12 cation} Applicatio ity of 21:49: n to [place] [address] area(s) in Medical the Branch morning and 1 Applicatio n in the evening. Apply bid to sides of neck for pain bisacodyL 2022-0 Yes 10mg Insert 1 Univ ers 10 mg 9-12 Suppositor ity of suppository 21:49: y into [place] [facility] 04 rectum Medical once daily Branch as needed for Constipati on. famotidine 3-0 Yes 20mg Take 1 Unive rs 20 mg 9-12 tablet by ity of tablet 21:49: mouth in [place] [address] the Medical morning Branch and 1 tablet in the evening. FENTANYL 3-0 Yes 50ug/h Apply 50 Uni vers TRANSDERMAL 9-12 mcg/hr to ity of 21:49: skin every [place] [address] 3 (three) Medical days. Branch docusate 2022-0 Yes 100mg Take 1 Univer s (COLACE) 9-12 capsule by ity o f 100 mg 21:49: mouth in [facility] 04 the Medical morning. Branch citalopram 2022-0 Yes 40mg Take 1 Unive rs 40 mg 9-12 tablet by ity of tablet 21:49: mouth in [place] [address] the Medical morning. Branch HYDROcodone 2022-0 Yes 1{tbl} Take 1 Un everette -acetaminop 9-12 tablet by ity of hen (NORCO) 21:49: mouth [place] 7.5-325 mg 04 the Medical per tablet morning Branch and 1 tablet in the evening. pain tamsulosin 2022-0 Yes .4mg Take 1 Unive rs 0.4 mg 24 9-12 capsule by ity of hr capsule 21:49: mouth at [facility] 04 bedtime. Medical Branch methocarbam 2022-0 Yes 500mg Take 1 Uni vers oL 500 mg 9-12 tablet by ity o f tablet 21:49: mouth in [place] 04 the Medical morning Branch and 1 tablet in the evening. acetaminoph 3-0 Yes 2{capsu Take 2 U nivers en 9-12 le} capsules ity of (TYLENOL) 21:49: by mouth [place] 325 mg Cap 04 every 6 Medica l (six) Branch hours as needed for Pain (scale 1-3) or Fever (temp >100.4F). isosorbide 2023-0 Yes 30mg 30 mg, Unive rs mononitrate 9-12 Oral, ity of (IMDUR) 24 14:00: DAILY, [place] hr tablet 00 First dose Medi tony 30 mg on [facility] 11/29/22 at 0900, Until Discontinu ed, Routine pantoprazol 2022-0 Yes 40mg 40 mg, Univ ers e 9-12 Oral, ity of (PROTONIX) 14:00: DAILY, [place] EC tablet 00 First dose Medi tony 40 mg on [facility] 11/29/22 at 0900, Until Discontinu ed, Routine isosorbide 2022-0 Yes 30mg 30 mg, Unive rs mononitrate 9-12 Oral, ity of (IMDUR) 24 14:00: DAILY, [place] hr tablet 00 First dose Medi tony 30 mg on [facility] 11/29/22 at 0900, Until Discontinu ed, Routine pantoprazol 2022-0 Yes 40mg 40 mg, Univ ers e 9-12 Oral, ity of (PROTONIX) 14:00: DAILY, [place] EC tablet 00 First dose Medi tony 40 mg on [facility] 11/29/22 at 0900, Until Discontinu ed, Routine pantoprazol 2022-0 Yes [id number] 40mg Take 1 Univers e 40 mg EC 9-12 tablet by ity of tablet 00:00: mouth in [place] 00 the Medical morning. Branch pantoprazol 2022-0 Yes [id number] 40mg Take 1 Univers e 40 mg EC 9-12 tablet by ity of tablet 00:00: mouth in [place] 00 the Medical morning. Branch pantoprazol 2022-0 Yes [id number] 40mg Take 1 Univers e 40 mg EC 9-12 tablet by ity of tablet 00:00: mouth in [place] 00 the Medical morning. Branch pantoprazol 2022-0 Yes [id number] 40mg Take 1 Univers e 40 mg EC 9-12 tablet by ity of tablet 00:00: mouth in [place] 00 the Medical morning. Branch simvastatin 2022-0 2022- No Take by Un everette 80 mg 11-28 mouth at ity of tablet 12:05: 00:00 bedtime. [place] 50 :00 [facility] Branch predniSONE 3-0 2022- No 50mg Take 50 mg Univers 50 mg 11-28 by mouth ity of tablet 12:05: 00:00 daily. [place] 50 :00 [facility] Branch aspirin 81 2022-0 2022- No 81mg Take 1 Univ ers mg EC 11-28 tablet by ity of tablet 12:05: 00:00 mouth in [place] 50 :00 the Medical morning. Branch atorvastati 2022-2022- No 40mg Take 1 Uni vers n 40 mg 11-28 tablet by ity of tablet 12:05: 00:00 mouth at [place] 50 :00 bedtime. Medical Branch simvastatin 2022-0 2022- No Take by Un everette 80 mg 11-28 mouth at ity of tablet 12:05: 00:00 bedtime. [place] 50 :00 Medical Branch predniSONE 2022-0 2022- No 50mg Take 50 mg Univers 50 mg 11-28 by mouth ity of tablet 12:05: 00:00 daily. [place] 50 :00 Medical Branch aspirin 81 2022-2022- No 81mg Take 1 Univ ers mg EC 11-28 tablet by ity of tablet 12:05: 00:00 mouth in [place] 50 :00 the Medical morning. Branch atorvastati 2022-0 2022- No 40mg Take 1 Uni vers n 40 mg 11-28 tablet by ity of tablet 12:05: 00:00 mouth at [place] 50 :00 bedtime. Medical Branch clopidogreL 2022-0 2022- No 75mg Take 1 Uni vers 75 mg 11-28 tablet by ity of tablet 12:05: 00:00 mouth in [place] 50 :00 the Medical morning. Branch clopidogreL 2022-0 2022- No 75mg Take 1 Uni vers 75 mg 11-28 tablet by ity of tablet 12:05: 00:00 mouth in [place] 50 :00 the Medical morning. Branch polyethylen Yes 17g Take 17 g U nivers e glycol 11-28 by mouth ity of 3350 12:05: in the [place] (MIRALAX) 49 morning. Medica l 17 Branch gram/dose powder Lidocaine 5 Yes 1{appli Apply 1 Univers % cream 11-28 cation} Applicatio ity of 12:05: n to [place] 49 area(s) in Medical the Branch morning and 1 Applicatio n in the evening. Apply bid to sides of neck for pain bisacodyL Yes 10mg Insert 1 Univ ers 10 mg 11-28 Suppositor ity of suppository 12:05: y into [facility] s 49 rectum Medical once daily Branch as needed for Constipati on. famotidine 0 Yes 20mg Take 1 Unive rs 20 mg 9-11 tablet by ity of tablet 12:05: mouth in [place] 49 the Medical morning Branch and 1 tablet in the evening. FENTANYL 2022-0 Yes 50ug/h Apply 50 Uni vers TRANSDERMAL 9-11 mcg/hr to ity of 12:05: skin every [place] [address] 3 (three) Medical days. Branch docusate 2022-0 Yes 100mg Take 1 Univer s (COLACE) 9-11 capsule by ity o f 100 mg 12:05: mouth in [facility] 49 the Medical morning. Branch citalopram 0 Yes 40mg Take 1 Unive rs 40 mg 9-11 tablet by ity of tablet 12:05: mouth in [place] [address] the Medical morning. Branch HYDROcodone 2022-0 Yes 1{tbl} Take 1 Un everette -acetaminop 9-11 tablet by ity of hen (NORCO) 12:05: mouth in [place] 7.5-325 mg 49 the Medical per tablet morning Branch and 1 tablet in the evening. pain tamsulosin 2022-0 Yes .4mg Take 1 Unive rs 0.4 mg 24 9-11 capsule by ity of hr capsule 12:05: mouth at [place] [address] bedtime. Medical Branch methocarbam 2022-0 Yes 500mg Take 1 Uni vers oL 500 mg 9-11 tablet by ity o f tablet 12:05: mouth in [place] [address] the Medical morning Branch and 1 tablet in the evening. acetaminoph 2022-0 Yes 2{capsu Take 2 U nivers en 9-11 le} capsules ity of (TYLENOL) 12:05: by [place] 325 mg Cap 49 every 6 Medica l (six) Branch hours as needed for Pain (scale 1-3) or Fever (temp >100.4F). empaglifloz 2022-0 Yes 1{tbl} Take 1 Un everette in-linaglip 9-11 tablet by ity of tin 12:05: mouth [place] (GLYXAMBI) 49 daily. Medical 25-5 mg Tab Branch gabapentin 2022-0 Yes 300mg Take 1 Univ ers 300 mg 9-11 capsule by ity of capsule 12:05: mouth in [place] [address] the Medical morning Branch and 1 capsule in the evening. isosorbide 2022-0 Yes 30mg Take 1 Unive rs mononitrate 9-11 tablet by ity of 30 mg 24 hr 12:05: mouth in [place] tablet 49 the Medical morning. Branch carbidopa-l 0 Yes 4{tbl} Take 4 Un everette evodopa 9-11 tablets by ity of 25-100 mg 12:05: mouth 4 [place] tablet 49 (four) Medical times Branch daily. vilazodone 0 Yes Take by Univ ers (VIIBRYD) 9-11 mouth. ity of 10 mg Tab 12:05: [place] [address] Medical Branch eszopiclone 0 Yes 3mg Take 3 mg U nivers 3 mg tablet 9-11 by mouth ity of 12:05: at [place] [address] bedtime. Medical Branch melatonin 0 Yes Take by Unive rs 10 mg Tab 9-11 mouth. ity of 12:05: [place] [address] Medical Branch Cholecalcif 0 Yes 5000U Take 1 Uni vers arjun, 9-11 capsule by ity of Vitamin D3, 12:05: mouth in [place] 125 mcg 49 the Medical (5,000 morning. Branch unit) capsule nystatin 0 Yes 1{appli Apply 1 Uni vers 100,000 9-11 cation} Applicatio ity of unit/gram 12:05: n to [facility] 49 area(s) in Medical the Branch morning and 1 Applicatio n in the evening. For rash atorvastati 0 Yes [id number] 80mg Take 1 Univers n 80 mg 9-11 tablet by ity of tablet 00:00: mouth at [place] [address] bedtime. Medical Branch nitroglycer [id number] 1 Univers in 0.4 mg 9-11 tablet ity of sublingual 00:00: under the [place] tablet 00 tongue Medical every 5 Branch (five) minutes as needed for Chest pain. carvediloL 0 Yes [id number] 6.25mg Take 1 Univers 6.25 mg 9-11 tablet by ity of tablet 00:00: mouth in [place] 00 the Medical morning Branch and 1 tablet in the evening. Take with meals. apixaban 5 2022-0 Yes 1358 5mg Take 1 Unive rs mg tablet 9-11 tablet by ity o f 00:00: mouth in [place] the Medical morning Branch and 1 tablet in the evening. Indication s: atrial fibrillati on clopidogreL 2022-0 Yes [id number] 75mg Take 1 Univers 75 mg 9-11 tablet by ity of tablet 00:00: mouth in [place] the morning. Branch aspirin 81 2022-0 Yes [id number] 81mg Take 1 U nivers mg EC 9-11 tablet by ity of tablet 00:00: mouth in [place] the morning. Branch atorvastati 2022-0 Yes [id number] 80mg Take 1 Univers n 80 mg 9-11 tablet by ity of tablet 00:00: mouth at [place] [address] bedtime. Medical Branch nitroglycer 2022-[id number] 1 Univers in 0.4 mg 9-11 tablet ity of sublingual 00:00: under the [place] tablet 00 tongue Medical every 5 Branch (five) minutes as needed for Chest pain. carvediloL 2022-0 Yes [id number] 6.25mg Take 1 Univers 6.25 mg 9-11 tablet by ity of tablet 00:00: mouth in [place] [address] the Medical morning Branch and 1 tablet in the evening. Take with meals. apixaban 5 2022-0 Yes [id number] 5mg Take 1 Unive rs mg tablet 9-11 tablet by ity o f 00:00: mouth in [place] [address] the morning Branch and 1 tablet in the evening. Indication s: atrial fibrillati on clopidogreL 2022-0 Yes [id number] 75mg Take 1 Univers 75 mg 9-11 tablet by ity of tablet 00:00: mouth in [place] the morning. Branch aspirin 81 2022-0 Yes [id number] 81mg Take 1 U nivers mg EC 9-11 tablet by ity of tablet 00:00: mouth in [place] the Medical morning. Branch atorvastati 2022-0 Yes [id number] 80mg Take 1 Univers n 80 mg 9-11 tablet by ity of tablet 00:00: mouth at [place] [address] bedtime. Medical Branch nitroglycer 2022-[id number] 1 Univers in 0.4 mg 9-11 tablet ity of sublingual 00:00: under the [place] tablet 00 tongue Medical every 5 Branch (five) minutes as needed for Chest pain. carvediloL 3-0 Yes [id number] 6.25mg Take 1 Univers 6.25 mg 9-11 tablet by ity of tablet 00:00: mouth in [place] the Medical morning Branch and 1 tablet in the evening. Take with meals. apixaban 5 2022-0 Yes 1358 5mg Take 1 Unive rs mg tablet 9-11 tablet by ity o f 00:00: mouth in [place] the Medical morning Branch and 1 tablet in the evening. Indication s: atrial fibrillati on clopidogreL 2022-0 Yes [id number] 75mg Take 1 Univers 75 mg 9-11 tablet by ity of tablet 00:00: mouth in [place] the Medical morning. Branch aspirin 81 2022-0 Yes [id number] 81mg Take 1 U nivers mg EC 9-11 tablet by ity of tablet 00:00: mouth in [place] the morning. Branch atorvastati 2022-0 Yes [id number] 80mg Take 1 Univers n 80 mg 9-11 tablet by ity of tablet 00:00: mouth at [place] [address] bedtime. Medical Branch nitroglycer 2022-[id number] 1 Univers in 0.4 mg 9-11 tablet ity of sublingual 00:00: [place] tablet 00 tongue Medical every 5 Branch (five) minutes as needed for Chest pain. carvediloL 2022-0 Yes [id number] 6.25mg Take 1 Univers 6.25 mg 9-11 tablet by ity of tablet 00:00: mouth in [place] the Medical morning Branch and 1 tablet in the evening. Take with meals. apixaban 5 2022-0 Yes 1358 5mg Take 1 Unive rs mg tablet 9-11 tablet by ity o f 00:00: mouth in [place] the Medical morning Branch and 1 tablet in the evening. Indication s: atrial fibrillati on clopidogreL 2022-0 Yes [id number] 75mg Take 1 Univers 75 mg 9-11 tablet by ity of tablet 00:00: mouth in [place] the Medical morning. Branch aspirin 81 2022-0 Yes [id number] 81mg Take 1 U nivers mg EC 9-11 tablet by ity of tablet 00:00: mouth in [place] the Medical morning. Branch carvediloL 2022-0 Yes 6.25mg 6.25 mg, U nivers (COREG) 9-10 Oral, BID ity of tablet 6.25 22:00: MEALS, [place] mg 00 First dose Medical (after [place] last modificati on) on [place] 11/27/22 at 1700, Until Discontinu ed, Routine carvediloL 3-0 Yes 6.25mg 6.25 mg, U nivers (COREG) 9-10 Oral, BID ity of tablet 6.25 22:00: MEALS, [place] mg 00 First dose Medical (after [place] last modificati on) on [place] 11/27/22 at 1700, Until Discontinu ed, Routine apixaban 2022-0 Yes 5mg 5 mg, Univers (ELIQUIS) 9-10 Oral, BID, ity of tablet 5 mg 15:30: First dose 00 on [facility] 11/27/22 at Branch 1030, Until Discontinu ed, Routine
Indicatio ns: Non-Valvul ar Atrial Fibrillati on apixaban 2022-0 Yes 5mg 5 mg, Univers (ELIQUIS) 9-10 Oral, BID, ity of tablet 5 mg 15:30: First dose 00 on [facility] 11/27/22 at Branch 1030, Until Discontinu ed, Routine
Indicatio ns: Non-Valvul ar Atrial Fibrillati on KCL 2022-0 2022- No 40meq 40 mEq, Univers (KLOR-CON 11-27 09-10 Oral, Q4H, ity of M20) tablet 13:00: 17:31 2 doses, [place] 40 mEq 00 :00 First dose Medical on [facility] 11/27/22 at 0800, Last dose on [place] 11/27/22 at 1200, Routine gabapentin 3-0 Yes 300mg 300 mg, Uni vers (NEURONTIN) 9-10 Oral, TID, it y of capsule 300 01:00: First dose [place] mg 00 on [facility] 11/26/22 at Branch 2000, Until Discontinu ed, Routine gabapentin 2023-0 Yes 300mg 300 mg, Uni vers (NEURONTIN) 9-10 Oral, TID, it y of capsule 300 01:00: First dose [place] mg 00 on [facility] 11/26/22 at Branch 2000, Until Discontinu ed, Routine hydrOXYzine 2022- No 10mg 10 mg, Uni vers (ATARAX) 11-26 Oral, ONCE ity of tablet 10 22:30: 22:58 NOW, 1 [place] mg 00 :00 dose, On Medical 11/26/22 Branch at 1730, Routine traMADoL 2022- No 50mg 50 mg, Univer s (ULTRAM) 11-26 Oral, ONCE ity of tablet 50 22:15: 22:58 NOW, 1 [place] mg 00 :00 dose, On Medical 11/26/22 Branch at 1715, Routine HYDROcodone Yes 1{tbl} 1 tablet, Univers -acetaminop 11-26 Oral, ity of hen (NORCO 21:16: Q6HPRN, [place] 5) 5-325 mg 06 Starting Medi tony tablet 1 on Sat Branch tablet 11/26/22 at 1616, Until Discontinu ed, Routine, Pain (scale 4-6), give as needed for pain 4-6 HYDROcodone Yes 1{tbl} 1 tablet, Univers -acetaminop 11-26 Oral, ity of hen (NORCO 21:16: Q6HPRN, [place] 5) 5-325 mg 06 Starting Medi tony tablet 1 on Sat Branch tablet 11/26/22 at 1616, Until Discontinu ed, Routine, Pain (scale 4-6), give as needed for pain 4-6 iron 2022-2022- No 25mg 25 mg, IV Univers dextran 11-26 Piggyback, ity o f (INFED) 25 14:45: 15:18 ONCE, 1 [place] mg in NaCl 00 :00 dose, On Medic al 0.9% (NS) 11/26/22 Bran ch 100 mL IV at 0945, piggyback Administer over 15 Minutes, 100 mL iron 2022- No 1000mg 1,000 mg, Unive rs dextran 11-26 IV ity of (INFED) 14:15: 16:51 Infusion, [place] 1,000 mg in 00 :00 ONCE, 1 Medic al NaCl 0.9% dose, On Branch (NS) 500 mL 11/26/22 IV infusion at 0915, Administer over 1.5 Hours, 500 mL atorvastati 0 Yes 80mg 80 mg, Univ ers n (LIPITOR) 11-26 Oral, QHS, it y of tablet 80 02:00: First dose [place] mg 00 (after Medical last Branch modificati on) on Mon11/25/22 at 2100, Until Discontinu ed, Routine atorvastati 0 Yes 80mg 80 mg, Univ ers n (LIPITOR) 11-26 Oral, QHS, it y of tablet 80 02:00: First dose [place] mg 00 (after Medical last Branch modificati on) on Mon11/25/22 at 2100, Until Discontinu ed, Routine NaCl 0.9% 2022- No 1000mL at 100 Uni vers (NS) IV 11-25 mL/hr, IV ity of infusion 23:45: 02:44 Infusion, [place] 1,000 mL 00 :00 CONTINUOUS Medic al , Starting Branch on Mon11/25/22 at 1845, Until Mon11/25/22 at 2144, Routine hydrOXYzine 2022- No 10mg 10 mg, Uni vers (ATARAX) 11-25 Oral, ity of tablet 10 23:00: 22:29 ONCE, 1 [place] mg 00 :00 dose, On Medical Mon11/25/22 Branch at 1800, Routine nitroglycer 2022- No ONCE INTRA Univers in 11-25 PROCEDURE, ity of (NITROSTAT) 21:41: 21:55 [place] sublingual 59 :33 on Mon Medical tablet 11/25/22 at Branch 1641, Until Mon11/25/22 at 1655, Routine, CV Intraproce dure iopamidol 2022- No ONCE INTRA U nivers (ISOVUE 11-25 PROCEDURE, ity o f 370-500 mL) 21:29: 21:55 Starting [place] injection 39 :33 on Fri Medical 11/25/22 at Branch 1629, Until Mon11/25/22 at 1655, Routine, CV Intraproce dure nitroglycer 2022-0 2022- No ONCE INTRA Univers in (TRIDIL) 11-25 PROCEDURE, i ty of 2 mg in 10 21:12: 21:55 [place] mL D5W for 03 :33 on Fri Medical Cardiac 11/25/22 at Branch Cath 1612, Until Mon11/25/22 at 1655, Routine, CV Intraproce dure adenosine 6 2022- No ONCE INTRA Univers mg/1000 mL 11-25 PROCEDURE, it y of INTRACORONA 21:11: 21:55 [place] RY 51 :33 on Mon Medical injection 11/25/22 at [facility] h for CATH 1611, LAB Until Mon11/25/22 at 1655, Routine, CV Intraproce dure clopidogreL 2022- No ONCE INTRA Univers (PLAVIX) 11-25 PROCEDURE, ity of 300 mg 20:08: 21:55 Starting [place] tablet 23 :33 on Mon Medical 11/25/22 at Branch 1508, Until Mon11/25/22 at 1655, Routine, CV Intraproce dure heparin 2022- No ONCE INTRA Uni vers 1,000 11-25 PROCEDURE, ity of unit/mL 19:54: 21:55 Starting [place] injection 01 :33 on Fri Medical 11/25/22 at Branch 1454, Until Mon11/25/22 at 1655, Routine, CV Intraproce dure NaCl 0.9% 2022- No CONTINUOUS U nivers (NS) bolus 11-25 PRN, ity of infusion 19:46: 21:55 [place] 04 :32 on Mon Medical 11/25/22 at Branch 1446, Until Discontinu ed, STAT, CV Intraproce dure lidocaine 2022- No ONCE INTRA U nivers 1% (PF) 11-25 PROCEDURE, ity o f (XYLOCAINE) 19:31: 21:55 Starting [place] injection 07 :33 on Mon Medical 11/25/22 at Branch 1431, Until Mon11/25/22 at 1655, Routine, CV Intraproce dure midazolam 2022- No ONCE INTRA U nivers (VERSED) 11-25 PROCEDURE, ity of injection 19:24: 21:55 Starting [place] 47 :33 on Mon Medical 11/25/22 at Branch 1424, Until 9/8/23 at 1655, Routine, CV Intraproce dure FENTanyl PF 2022- No ONCE INTRA Univers (SUBLIMAZE 11-25 PROCEDURE, it y of (PF)) 19:24: 21:55 Starting [place] injection 35 :34 on Mon11/25/22 at Branch 1424, Until Mon11/25/22 at 1655, Routine, CV Intraproce dure hydrOXYzine 2022- No 10mg 10 mg, Uni vers (ATARAX) 11-25 Oral, ity of tablet 10 15:00: 14:20 ONCE, 1 [place] mg 00 :00 dose, On Mon11/25/22 Branch at 1000, Routine ceFEPIme 2022- No 1000mg 1,000 mg, U nivers (MAXIPIME) 11-25 IV ity of 1,000 mg in 13:00: 13:27 [place], [place] NaCl 0.9% 00 :39 Q8H ABX, 3 Medi tony (NS) 100 mL doses, Branch MINI-BAG First dose on Mon11/25/22 at 0800, Last dose on Mon11/26/22 at 0000, Administer over 4 Hours, 100 mL
Reas on for Anti-Infec tive: Empiric Therapy for Suspected Infection< br>Empiric Therapy Site: Respirator y
Durat ion of therapy: 72 hours KCL 20 2022- No 40meq 40 mEq, Univer s mEq/15 mL 11-25 Oral, ity of solution 40 08:45: 08:56 ONCE, 1 [place] mEq 00 :00 dose, On Mon11/25/22 Branch at 0345, Routine ceFEPIme 2022- No 1000mg 1,000 mg, U nivers (MAXIPIME) 11-25 IV ity of 1,000 mg in 05:15: 06:37 [place], [place] NaCl 0.9% 00 :00 ONCE, 1 Medical (NS) 100 mL dose, On [facility] MINI-BAG Mon11/25/22 at 0015, Administer over 30 Minutes, 100 mL
Reas on for Anti-Infec tive: Empiric Therapy for Suspected Infection< br>Empiric Therapy Site: Respirator y
Durat ion of therapy: 72 hours tamsulosin Yes .4mg 0.4 mg, [facility] ers (FLOMAX) 11-25 Oral, QHS, ity o f capsule 0.4 02:00: First dose [place] mg 00 on [facility] 11/24/22 at Branch 2100, Until Discontinu ed, Routine tamsulosin Yes .4mg 0.4 mg, [facility] ers (FLOMAX) 11-25 Oral, QHS, ity o f capsule 0.4 02:00: First dose [place] mg 00 on [facility] 11/24/22 at Branch 2100, Until Discontinu ed, Routine famotidine 2022- No 20mg 20 mg, [facility] ers (PEPCID AC) 11-25 Oral, BID, i ty of tablet 20 01:00: 14:35 First dose [place] mg 00 :12 on [facility] 11/24/22 at Branch 2000, Until Discontinu ed, Routine NaCl 0.9% 2022- No 500mL at [address] [facility] ers (NS) bolus 11-25 mL/hr, 500 it y of infusion 01:00: 04:00 mL, IV [place] 500 mL 00 :00 Piggyback, Medical ONCE, 1 Branch dose, On [facility] 11/24/22 at 2000, STAT Sliding Yes [facility] ers Scale 11-24 , TID ity of Insulin - 22:00: MEALS+HS, [place] Lispro 00 First dose Medical (HumaLOG) on [facility] 11/24/22 at 1700, Until Discontinu ed, Routine Sliding Yes Subcrustneo [facility] ers Scale 11-24 , TID ity of Insulin - 22:00: MEALS+HS, [place] Lispro 00 First dose Medical (HumaLOG) on [facility] 11/24/22 at 1700, Until Discontinu ed, Routine ceFEPIme 2022- No 1000mg 1,000 mg, U nivers (MAXIPIME) 11-24 IV ity of 1,000 mg in 20:15: 23:05 Piggyback, [place] NaCl 0.9% 00 :00 ONCE, 1 Medical (NS) 100 mL dose, On [facility] MINI-BAG [facility] 11/24/22 at 1515, Administer over 30 Minutes, 100 mL
Reas on for Anti-Infec tive: Empiric Therapy for Suspected Infection< br>Empiric Therapy Site: Abdominal< br>Duratio n of therapy: 72 hours sulfur 2022- No [id number] 5mL 5 mL, Univ ers hexafluorid 11-24 Intravenou i ty of e microsphr 19:53: 19:53 s, ONCE, 1 [place] (LUMASON) 00 :00 dose, On Medica l injection [address] [facility] 11/24/22 Br anch mL at 1453, Routine
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 Branch 11/24/22 at 1445, Until Discontinu ed, Routine glucagon Yes 1mg 1 mg, Univers (GLUCAGEN 11-24 Intramuscu ity of DIAGNOSTIC 19:31: lar, PRN, [place] KIT) 06 Starting Medical injection 1 on [facility] 11/24/22 at 1431, Until Discontinu ed, ANITA, Blood Glucose < or = 70 mg/dL and patient is NPO, unable to swallow or has mental changes. dextrose 50 Yes 25mL 25 mL, Univ ers % in water 11-24 Slow IV ity of (D50W) 19:31: Push, PRN, [place] injection 06 Starting Medica l 25 mL on [place] Branch 11/24/22 at 1431, Until Discontinu ed, ANITA, Blood Glucose < or = 70 mg/dL and patient is NPO, unable to swallow or has mental status changes. glucagon 0 Yes 1mg 1 mg, Univers (GLUCAGEN 11-24 Intramuscu ity of DIAGNOSTIC 19:31: lar, PRN, [place] KIT) 06 Starting Medical injection [address] [facility] Branch 11/24/22 at 1431, Until Discontinu ed, ANITA, Blood Glucose < or = 70 mg/dL and patient is NPO, unable to swallow or has mental changes. dextrose 50 2022-0 Yes 25mL 25 mL, Univ ers % in water 11-24 Slow IV ity of (D50W) 19:31: Push, PRN, [place] injection 06 Starting Medica l 25 mL on [place] Branch 11/24/22 at 1431, Until Discontinu ed, ANITA, Blood Glucose < or = 70 mg/dL and patient is NPO, unable to swallow or has mental status changes. aspirin 2022-0 Yes 81mg 81 mg, Univers chewable 11-24 Oral, ity of tablet 81 19:30: DAILY, [place] mg 00 First dose Medical (after Branch last modificati on) on [facility] 11/24/22 at 1430, Until Discontinu ed, Routine clopidogreL 2022-0 Yes 75mg 75 mg, Univ ers (PLAVIX) 75 11-24 Oral, ity of mg tablet 19:30: DAILY, [place] 75 mg 00 First dose Medical on [facility] Branch 11/24/22 at 1430, Until Discontinu ed, Routine aspirin 2022-0 Yes 81mg 81 mg, Univers chewable 11-24 Oral, ity of tablet 81 19:30: DAILY, [place] mg 00 First dose Medical (after Branch last modificati on) on [facility] 11/24/22 at 1430, Until Discontinu ed, Routine clopidogreL 2022-0 Yes 75mg 75 mg, Univ ers (PLAVIX) 75 11-24 Oral, ity of mg tablet 19:30: DAILY, [place] 75 mg 00 First dose Medical on [facility] Branch 11/24/22 at 1430, Until Discontinu ed, Routine nitroglycer 2022-0 Yes .4mg 0.4 mg, Uni vers in 11-24 Sublingual ity of (NITROSTAT) 19:22: , Q5MIN [place] sublingual 36 PRN, Medical tablet 0.4 Starting Branc h mg on [facility] 11/24/22 at 1422, Until Discontinu ed, Routine, Chest pain nitroglycer 2022-0 Yes .4mg 0.4 mg, Uni vers in 11-24 Sublingual ity of (NITROSTAT) 19:22: , Q5MIN [place] sublingual 36 PRN, Medical tablet 0.4 Starting Branc h mg on [facility] 11/24/22 at 1422, Until Discontinu ed, Routine, Chest pain HEPARIN 2022- No 4000U 4,000 Univers SODIUM 11-24 Units, IV ity of (PORCINE) 18:30: 19:15 Push, [place] 1,000 00 :00 ONCE, 1 Medical UNIT/ML dose, On Branch BOLUS [facility] [place] 11/24/22 ORDER SET at 1330, ANITA heparin 2022- No 0U/h 0-2,750 Univer s 25,000 11-24 Units/hr ity of Units/250 18:21: 17:32 (0-27.5 [place] mL 19 :17 mL/hr), IV Medical (Premixed Infusion, Branc h Bag) in TITRATE, 0.45 % NS Parameters in Admin. Instr., Starting on [place] 11/24/22 at 1321
In itiate dosing:&nb sp; & nbsp;&nbsp ; -Patient 83 kg or under: 1,000 Units/hr (Calculate d dose at 12 units/kg/h r) &n bsp; &nbs p; -Patient over 83 k,000 units/hr&n bsp;DO NOT Exceed the MAXIMUM 1,000 units/hr for initiation of heparin drip.&nbsp ; CAU TION - If LMWH given in ER, AVOID bolus and start next dose/drip 12 hrs after ER dosage.&nb sp; M ust program rate using programmab le infusion pump.&nbsp ; Eloise ck with the ordering provider first prior to any administra tion should the patient be on existing/a dditional anticoagul ant therapy. Rang e, Dosing and Testing: &nbs p;FOR [facility], [facility], AND [facility]USES ONLY &nbs p; - aPTT < 35: & nbsp;Bolus 5000 units, increase rate 300 units/hr&n bsp; - aPTT 35-44:&nbs p; Dwaine john 3000 units, increase rate 200 units/hr&n bsp; - aPTT 45-54:&nbs p; In crease rate 100 units/hr&n bsp; - aPTT 55-85:&nbs p; NO CHANGE&nbs p; - aPTT 86-95:&nbs p; De crease rate 100 units/hr&n bsp; - aPTT 96-120:&nb sp; H old 30 minutes, decrease rate 150 units/hr&a mp;nbsp; - aPTT > 120: Hold 60 minutes, decrease rate 200 units/hr&n bsp; Check aPTT 6 hours after initiation , then Q6H after every change, aPTT Q12H once therapeuti c levels are reached.&n bsp; &nbs p; __ &n bsp;FOR [facility] ONLY - aPTT < 40: & nbsp;Bolus 5000 units, increase rate 300 units/hr&n bsp; - aPTT 40-49:&amp ;nbsp;&nbs p;Bolus 3000 units, increase rate 200 units/hr&n bsp; - aPTT 50-59:&nbs p; In crease rate 100 units/hr&n bsp; - aPTT 60-85:&nbs p; NO CHANGE&nbs p; - aPTT 86-95:&nbs p; De crease rate 100 units/hr&n bsp; - aPTT 96-120:&nb sp; H old 30 minutes, decrease rate 150 units/hr&n bsp; - aPTT > 120: Hold 60 minutes, decrease rate 200 units/hr&n bsp; Check aPTT 6 hours after initiation , then Q6H after every change, aPTT Q12H once therapeuti c levels are reached.&n bsp; DO NOT ADJUST INITIAL BOLUS OR INITIAL INFUSION RATE.
carbidopa-l 2023-0 Yes 4{tbl} 4 tablet, Univers evodopa 11-24 Oral, QID, ity of (SINEMET-25 17:00: First dose [place] /100) [address] [facility] Medical 25-100 mg 11/24/22 at [facility] h tablet 4 1200, tablet Until Discontinu ed, Routine carbidopa-l 2023-0 Yes 4{tbl} 4 tablet, Univers evodopa 11-24 Oral, QID, ity of (SINEMET-25 17:00: First dose [place] /100) [address] [facility] Medical 25-100 mg 11/24/22 at [facility] h tablet 4 1200, tablet Until Discontinu ed, Routine FENTanyl 2022-0 Yes 1{patch 1 Patch, Un [place] (DURAGESIC) 11-24 } Transderma it y of 50 mcg/hr 14:00: l (Apply [place] patch 1 00 To Skin), Medical Patch ONCE Q Branch 3DAYS, First dose on [facility] 11/24/22 at 0900, Until Discontinu ed citalopram 2022-0 Yes 40mg 40 mg, Unive rs (CELEXA) 11-24 Oral, ity of tablet 40 14:00: DAILY, [place] mg 00 First dose Medical on [facility] Branch 11/24/22 at 0900, Until Discontinu ed, Routine FENTanyl 2022-0 Yes 1{patch 1 Patch, Un [place] (DURAGESIC) 11-24 } Transderma it y of 50 mcg/hr 14:00: l (Apply [place] patch 1 00 To Skin), Medical Patch ONCE Q Branch 3DAYS, First dose on [facility] 11/24/22 at 0900, Until Discontinu ed citalopram 2022-0 Yes 40mg 40 mg, Unive rs (CELEXA) 11-24 Oral, ity of tablet 40 14:00: DAILY, [place] mg 00 First dose Medical on [facility] 11/24/22 at 0900, Until Discontinu ed, Routine clopidogreL No 75mg 75 mg, Uni vers (PLAVIX) 75 11-24 Oral, ity of mg tablet 14:00: 18:44 DAILY, [place] 75 mg 00 :00 First dose Medical on [facility] 11/24/22 at 0900, Until Discontinu ed, Routine aspirin EC 2022- No 81mg 81 mg, Univ ers tablet 81 11-24 Oral, ity of mg 14:00: 18:44 DAILY, [place] 00 :11 First dose Medical on [facility] Branch 11/24/22 at 0900, Until Discontinu ed, Routine apixaban 5 2022- No 5mg Take 1 Univ ers mg tablet 11-24 tablet by ity of 13:22: 00:00 mouth in [place] 50 :00 the Medical morning Branch and 1 tablet in the evening. apixaban 5 2022- No 5mg Take 1 Univ ers mg tablet 11-24 tablet by ity of 13:22: 00:00 mouth in [place] 50 :00 the [facility] morning Branch and 1 tablet in the evening. bisacodyL 2022-0 Yes 10mg 10 mg, Univer s (DULCOLAX) 11-24 Rectal, ity of suppository 13:03: QDAILYPRN, [place] 10 mg 11 Starting Medical on [facility] 11/24/22 at 0803, Until Discontinu ed, Routine, Constipati on bisacodyL 0 Yes 10mg 10 mg, Univer s (DULCOLAX) 11-24 Rectal, ity of suppository 13:03: QDAILYPRN, [place] 10 mg 11 Starting Medical on [facility] Branch 11/24/22 at 0803, Until Discontinu ed, Routine, Constipati on NaCl 0.9% No 1000mL at 75 Univ ers (NS) IV 11-24 mL/hr, IV ity of infusion 11:30: 19:23 Infusion, [place] 1,000 mL 00 :07 CONTINUOUS Medic al , Starting Branch on [facility] 11/24/22 at 0630, Until [facility] 11/24/22 at 1423, Routine ondansetron 2023-0 Yes 4mg 4 mg, Slow Univers (ZOFRAN 11-24 IV Push, ity of (PF)) 11:15: Q6HPRN, [place] injection 4 Starting Medi tony mg on [facility] Branch 11/24/22 at 0615, Until Discontinu ed, Routine, Nausea and Vomiting (N/V) ondansetron 3-0 Yes 4mg 4 mg, Slow Univers (ZOFRAN 11-24 IV Push, ity of (PF)) 11:15: Q6HPRN, [place] injection 4 Starting Medi tony mg on [facility] Branch 11/24/22 at 0615, Until Discontinu ed, Routine, Nausea and Vomiting (N/V) traMADoL 2022-0 2022- No 50mg 50 mg, Univer s (ULTRAM) 11-24 Oral, ity of tablet 50 11:15: 11:14 Q8HPRN, [place] mg 11 :11 Starting Medical on [facility] Branch 11/24/22 at 0615, Until 11/26/22 at 0614, Routine, Pain (scale 4-6) acetaminoph 3-0 Yes 650mg 650 mg, Un [place] en 11-24 Oral, ity of (TYLENOL) 11:15: Q6HPRN, [place] tablet 650 09 Starting Medic al mg on [facility] Branch 11/24/22 at 0615, Until Discontinu ed, Routine, Pain (scale 1-3) acetaminoph 3-0 Yes 650mg 650 mg, Un everette en 11-24 Oral, ity of (TYLENOL) 11:15: Q6HPRN, [place] tablet 650 09 Starting Medic al mg on [facility] Branch 11/24/22 at 0615, Until Discontinu ed, Routine, Pain (scale 1-3) levoFLOXaci 3-0 2023- No 750mg 750 mg, IV Univers n in D5W 11-24 Piggyback, ity of (LEVAQUIN) 04:45: 06:38 ONCE, 1 [place] 750 mg/150 00 :00 dose, On Medic al mL 11/23/22 Branch Piggyback at 2345, 750 mg Administer over 90 Minutes, 150 mL
R [place] for Anti-Infec tive: Empiric Therapy for Suspected Infection< br>Empiric Therapy Site: Respirator y
Durat ion of therapy: 72 hours iopamidol 2022- No [id number] 50mL 50 mL, Univers (ISOVUE 11-24 Intravenou ity o f 370-500 mL) 04:45: 04:45 s, ONCE, 1 [place] injection 00 :00 dose, On Medica l 50 mL Mon11/23/22 Branch at 2345, Routine NaCl 0.9% 2022- No 1000mL at 125 Uni vers (NS) IV 11-24 mL/hr, IV ity of infusion 03:45: 11:19 Infusion, [place] 1,000 mL 00 :02 CONTINUOUS Medic al , Starting Branch on Mon11/23/22 at 2245, Until [place] 11/24/22 at 0619, Routine ipratropium 2022- No 3mL 3 mL, Univ ers -albuteroL 11-24 Inhalation it y of (DUONEB) 03:45: 03:08 , Q10M, 2 [place] 0.5 mg-3 00 :00 doses, Medical mg(2.5 mg First dose Bran ch base)/3 mL on Mon nebulizer 11/23/22 at solution 3 2245, Last mL dose on Mon11/23/22 at 2255, Routine methylpredn 2022- No 125mg 125 mg, U nivers isolone sod 11-24 Intravenou i ty of succ 03:30: 04:37 s, ONCE, 1 [place] (SOLU-MEDRO 00 :00 dose, On Medi tony L) Mon11/23/22 Branch injection at 2230, 2 125 mg mL nitroglycer 2022- No .5[in_u 0.5 Inch, Univers in (NITROL) 11-24 s] Transderma i ty of 2 % 02:45: 04:26 l (Apply [place] ointment 00 :00 To Skin), Medica l 0.5 Inch ONCE, 1 Branch dose, On Mon11/23/22 at 2145, ANITA aspirin 2022- No 325mg 325 mg, Unive rs tablet 325 11-24 Oral, ity of mg 02:45: 14:02 DAILY, [place] 00 :07 First dose Medical on Mon11/23/22 at 2145, Until Discontinu ed, Routine heparin No 10U 10 Units, Univ ers lock flush 11-22 IV Push, ity of (HEP-LOCK) 23:45: 23:45 ONCE, 1 [place] injection 00 :00 dose, On Medica l 10 Units Mon11/22/22 Bran h at 1845, ANITA acetaminoph 2022- No 650mg 650 mg, U nivers en 11-22 Oral, ity of (TYLENOL) 19:00: 18:46 ONCE, 1 [place] tablet 650 00 :00 dose, On Medic al mg Mon11/22/22 Branch at 1400, ANITA Cholecalcif Yes 5000U Take 1 Uni vers arjun, 905 capsule by ity of Vitamin D3, 18:42: mouth in [place] 125 mcg 25 [facility] (5,000 morning. Branch unit) capsule nystatin Yes 1{appli Apply 1 Uni vers 100,000 -05 cation} Applicatio ity of unit/gram 18:42: n to [facility] 25 area(s) in [facility] morning and 1 Applicatio n in the evening. For rash polyethylen Yes 17g Take 17 g U nivers e glycol 9-05 by mouth ity of 3350 18:42: in the [place] (MIRALAX) 25 morning. Medica l 17 Branch gram/dose powder Lidocaine 5 Yes 1{appli Apply 1 Univers % cream 05 cation} Applicatio ity of 18:42: n to [place] 25 area(s) in [facility] the [place] morning and 1 Applicatio n in the evening. Apply bid to sides of neck for pain bisacodyL 0 Yes 10mg Insert 1 Univ ers 10 mg 05 Suppositor ity of suppository 18:42: y into [place] 25 rectum Medical once daily [place] as needed for Constipati on. famotidine 0 Yes 20mg Take 1 Unive rs 20 mg 11-22 tablet by ity of tablet 18:42: mouth in [place] [id number] the Medical morning Branch and 1 tablet in the evening. aspirin 81 0 Yes 81mg Take 1 Unive rs mg EC 9-05 tablet by ity of tablet 18:42: mouth in [place] [address] the Medical morning. Branch FENTANYL 2022-0 Yes 50ug/h Apply 50 Uni vers TRANSDERMAL 9-05 mcg/hr to ity of 18:42: skin every [place] [address] 3 (three) Medical days. Branch docusate 2022-0 Yes 100mg Take 1 Univer s (COLACE) 9-05 capsule by ity o f 100 mg 18:42: mouth in [place] [address] the Medical morning. Branch citalopram 0 Yes 40mg Take 1 Unive rs 40 mg 9-05 tablet by ity of tablet 18:42: mouth in [place] [address] the Medical morning. Branch HYDROcodone 0 Yes 1{tbl} Take 1 Un everette -acetaminop 9-05 tablet by ity of hen (NORCO) 18:42: mouth in [place] 7.5-325 mg 25 the Medical per tablet morning Branch and 1 tablet in the evening. pain apixaban 5 0 Yes 5mg Take 1 Unive rs mg tablet 9-05 tablet by ity o f 18:42: mouth in [place] [address] the Medical morning Branch and 1 tablet in the evening. tamsulosin 0 Yes .4mg Take 1 Unive rs 0.4 mg 24 9-05 capsule by ity of hr capsule 18:42: mouth at [place] [address] bedtime. Medical Branch methocarbam 0 Yes 500mg Take 1 Uni vers oL 500 mg 9-05 tablet by ity o f tablet 18:42: mouth in [place] [address] the Medical morning Branch and 1 tablet in the evening. atorvastati 0 Yes 40mg Take 1 Univ ers n 40 mg 9-05 tablet by ity of tablet 18:42: mouth at [place] [address] bedtime. Medical Branch acetaminoph 0 Yes 2{capsu Take 2 U nivers en 9-05 le} capsules ity of (TYLENOL) 18:42: [place] mouth [place] 325 mg Cap 25 every 6 Medica l (six) Branch hours as needed for Pain (scale 1-3) or Fever (temp >100.4F). clopidogreL 2023-0 Yes 75mg Take 1 Univ ers 75 mg 9-05 tablet by ity of tablet 13:22: mouth in [place] 23 the Medical morning. Branch gabapentin 2023-0 Yes 300mg Take 1 Univ ers 300 mg 9-05 capsule by ity of capsule 13:22: mouth in [place] 23 the Medical morning Branch and 1 capsule in the evening. isosorbide 2023-0 Yes 30mg Take 1 Unive rs mononitrate 9-05 tablet by ity of 30 mg 24 hr 13:22: mouth in [place] tablet 23 the Medical morning. Branch carbidopa-l 2023-0 Yes 4{tbl} Take 4 Un everette evodopa 9-05 tablets by ity of 25-100 mg 13:22: mouth 4 [place] tablet 23 (four) Medical times Branch daily. acetaminoph 2022-0 Yes 500mg Q6H Take 500 [...] 49 daily. l 25-5 mg tablet triptorelin 2-0 Yes Q90D Inject Meth valencia pamoate 7-[address] (TRELSTAR 13:01: shoulder, Hos efren DEPOT IM) 49 thigh, or l buttocks every 3 (three) months. traMADoL 2-0 Yes [id number] 50mg Q6H Take 50 mg Me thodi (ULTRAM) 50 7-[address] mg tablet 13:01: every 6 Hospi ta 49 (six) l hours as needed for moderate pain .acute pain. valsartan 2-0 Yes 80mg QD Take 80 mg Me [...] every 3 (three) months. traMADoL 2021-0 Yes [id number] 50mg Q6H Take 50 mg Me thodi [...] every 3 (three) months. traMADoL 2021-0 Yes 04053 50mg Q6H Take 50 mg Me thodi [...] QD Take 30 mg M ethodi mononitrate -[address] (IMDUR) 30 13:01: daily. [...] every 3 (three) months. traMADoL 2021-0 Yes 58523 50mg Q6H Take 50 mg Me thodi [...] every 3 (three) months. traMADoL 2021-0 Yes 90373 50mg Q6H Take 50 mg Me thodi [...] every 3 (three) months. traMADoL 2021-0 Yes 15096 50mg Q6H Take 50 mg Me thodi [...] every 3 (three) months. traMADoL 0 Yes 89232 50mg Q6H Take 50 mg Me thodi [...] every 3 (three) months. traMADoL 2021-0 Yes 55751 50mg Q6H Take 50 mg Me thodi [...] every 3 (three) months. traMADoL 2021-0 Yes 11815 50mg Q6H Take 50 mg Me thodi [...] every 3 (three) months. traMADoL 2021-0 Yes 53982 50mg Q6H Take 50 mg Me thodi [...] every 3 (three) months. traMADoL 0 Yes 12598 50mg Q6H Take 50 mg Me thodi [...] every 3 (three) months. traMADoL 2021-0 Yes 46939 50mg Q6H Take 50 mg Me thodi [...] every 3 (three) months. traMADoL 2021-0 Yes 32697 50mg Q6H Take 50 mg Me thodi [...] every 3 (three) months. traMADoL 2021-0 Yes 98417 50mg Q6H Take 50 mg Me thodi [...] every 3 (three) months. traMADoL 0 Yes 56213 50mg Q6H Take 50 mg Me thodi [...] buttocks every 3 (three) months. traMADoL Yes 32942 50mg Q6H Take 50 mg Me thodi [...] every 3 (three) months. traMADoL 2021-0 Yes 03072 50mg Q6H Take 50 mg Me thodi [...] every 3 (three) months. traMADoL 2021-0 Yes 02114 50mg Q6H Take 50 mg Me thodi [...] every 3 (three) months. traMADoL 2021-0 Yes [id number] 50mg Q6H Take 50 mg Me thodi [...] every 3 (three) months. traMADoL 2021-0 Yes 18509 50mg Q6H Take 50 mg Me thodi [...] 13:01: nightly. [facility] l citalopram 2022-0 Yes 40mg QD Take 40 mg M ethodi (CeleXA) 40 7-[address] MG tablet 13:01: daily. Hospit [facility] 49 l eszopiclone 0 Yes 3mg QD Take 3 mg M ethodi (LUNESTA) 3 7-[address] mg tablet 13:01: nightly. [facility] 49 Take l immediatel y before bedtime eszopiclone 0 Yes 3mg QD Take 3 [...] buttocks every 3 (three) months. traMADoL Yes 67734 50mg Q6H Take 50 mg Me thodi [...] mouth st mg tablet 09:14: 00:[address] [facility] ta 12 :00 l clopidogrel 2022-0 2022- No 75mg QD Take 75 mg Methodi (PLAVIX) 75 09-24-[address] mg tablet 09:14: 00:00 daily. [facility] 12 :00 l clopidogrel 2022-0 2022- No 75mg QD Take 75 mg Methodi (PLAVIX) 75 09-24-[address] mg tablet 09:14: 00:00 daily. [facility] 12 :00 l clopidogrel 2022-0 2022- No 75mg QD Take 75 mg [facility]i (PLAVIX) 75 09-24-[address] mg tablet 09:14: 00:00 daily. [facility] 12 :00 l clopidogrel 2022-0 2022- No 75mg QD Take 75 mg [facility]i (PLAVIX) 75 09-24-[address] mg tablet 09:14: 00:00 daily. [facility] 12 :00 l clopidogrel 2022-0 2022- No 75mg QD Take 75 mg [facility] (PLAVIX) 75 09-24-[address] mg tablet 09:14: 00:00 daily. [facility] 12 :00 l clopidogrel 2022-0 2022- No 75mg QD Take 75 mg [facility] (PLAVIX) 75 09-24-[address] mg tablet 09:14: 00:00 daily. [facility] 12 :00 l clopidogrel 2022-0 2022- No 75mg QD Take 75 mg [facility] (PLAVIX) 75 09-24-[address] mg tablet 09:14: 00:00 daily. [facility] 12 :00 l clopidogrel 2022-0 2022- No 75mg QD Take 75 mg [facility] (PLAVIX) 75 09-24-[address] mg tablet 09:14: 00:00 daily. [facility] 12 :00 l clopidogrel 2022-0 2022- No 75mg QD Take 75 mg [facility] (PLAVIX) 75 09-24-[address] mg tablet 09:14: 00:00 daily. [facility] 12 :00 l clopidogrel 2022-0 2022- No [...] mg tablet per tablet insulin Yes 0U [id number] Inject Me thodi lispro -08 [id number] 0-12 Units s t (ADMELOG) 00:00: 3D [...] mg tablet per tablet insulin Yes 0U Q.[id number] Inject Me thodi lispro -08 [id number] 0-12 Units s t (ADMELOG) 00:00: 3D under the Hos efren 100 unit/mL 00 skin 3 l injection (three) times a day before meals. lidocaine 0 Yes 1{patch Q24H Place 1 Me thodi (LIDODERM) -08 } patch on st 5 % 00:00: [...] mg tablet per tablet insulin Yes 0U [id number] Inject Me thodi lispro 09-24 [id number] 0-12 Units s t (ADMELOG) 00:00: 3D [...] mg tablet per tablet insulin Yes 0U Q.[id number] Inject Me thodi lispro - [id number] 0-12 Units s t (ADMELOG) 00:00: 3D [...] tablet per tablet insulin 0 Yes 0U Q.[id number] Inject Me thodi lispro -08 [id number] 0-12 Units s t (ADMELOG) 00:00: 3D [...] efren 00 by mouth l daily. aspirin 2022-0 Yes 81mg QD Take 1 Methodi (ECOTRIN) [...] tablet per tablet insulin 0 Yes 0U Q.[id number] Inject Me thodi lispro 09-24 [id number] 0-12 Units s t (ADMELOG) 00:00: 3D [...] mg tablet per tablet insulin Yes 0U Q.[id number] Inject Me thodi lispro 7-08 [id number] 0-12 Units s t (ADMELOG) 00:00: 3D under the Hos efren 100 unit/mL 00 skin 3 l injection (three) times a day before meals. lidocaine Yes 1{patch Q24H Place 1 Me thodi (LIDODERM) -08 } patch on st 5 % 00:00: [...] mg tablet per tablet insulin Yes 0U Q.[id number] Inject Me thodi lispro 7-08 [id number] 0-12 Units s t (ADMELOG) 00:00: 3D [...] tablet per tablet insulin 0 Yes 0U Q.[id number] Inject Me thodi lispro 7-08 [id number] 0-12 Units s t (ADMELOG) 00:00: 3D [...] mg tablet per tablet insulin Yes 0U Q.[id number] Inject Me thodi lispro - [id number] 0-12 Units s t (ADMELOG) 00:00: 3D [...] tablet per tablet insulin 0 Yes 0U Q.[id number] Inject Me thodi lispro 7-08 [id number] 0-12 Units s t (ADMELOG) 00:00: 3D [...] tablet per tablet insulin 2021-0 Yes 0U Q.[id number] Inject Me thodi lispro 7-08 [id number] 0-12 Units s t (ADMELOG) 00:00: 3D [...] tablet per tablet insulin 0 Yes 0U Q.[id number] Inject Me thodi lispro -08 [id number] 0-12 Units s t (ADMELOG) 00:00: 3D [...] mg tablet per tablet insulin Yes 0U Q.[id number] Inject Me thodi lispro 09-24 [id number] 0-12 Units s t (ADMELOG) 00:00: 3D [...] mg tablet per tablet insulin Yes 0U Q.[id number] Inject Me thodi lispro 7-08 [id number] 0-12 Units s t (ADMELOG) 00:00: 3D [...] mg tablet per tablet insulin Yes 0U Q.[id number] Inject Me thodi lispro 7-08 [id number] 0-12 Units s t (ADMELOG) 00:00: 3D [...] mg tablet per tablet insulin Yes 0U Q.[id number] Inject Me thodi lispro -08 [id number] 0-12 Units s t (ADMELOG) 00:00: 3D [...] mg tablet per tablet insulin Yes 0U Q.[id number] Inject Me thodi lispro - [id number] 0-12 Units s t (ADMELOG) 00:00: 3D [...] mg tablet per tablet insulin Yes 0U Q.[id number] Inject Me thodi lispro - [id number] 0-12 Units s t (ADMELOG) 00:00: 3D [...] mg tablet per tablet insulin Yes 0U Q.[id number] Inject Me thodi lispro 7-08 [id number] 0-12 Units s t (ADMELOG) 00:00: 3D [...] mg tablet per tablet insulin Yes 0U Q.[id number] Inject Me thodi lispro 09-24 [id number] 0-12 Units s t (ADMELOG) 00:00: 3D [...] mg tablet mouth daily. traMADol 2021- No [id number] 50mg Q6H Take 50 mg M ethodi (ULTRAM) 50 09-21-[address] mg tablet 17:22: 00:00 every 6 [facility] 12 :00 (six) l hours as needed for moderate pain .Acute Pain. traMADol 2021- No 14326 50mg Q6H Take 50 mg M ethodi [...] for moderate [place] [address] 50mg Q6H Take 50 mg M ethodi (ULTRAM) 50 7-05 07-[address] mg tablet 17:22: 00:00 every 6 [facility] 12 :00 (six) l hours as needed for moderate [place] [address] 50mg Q6H Take 50 mg M ethodi (ULTRAM) 50 7-05 07-[address] mg tablet 17:22: 00:00 every 6 [facility] 12 :00 (six) l hours as needed for moderate pain [place] [address] 50mg Q6H Take 50 mg M ethodi (ULTRAM) 50 7-05 07-[address] mg tablet 17:: 00:00 every 6 [facility] 12 :00 (six) l hours as needed for moderate [place] [address] 50mg Q6H Take 50 mg M ethodi (ULTRAM) 50 7-05 07-[address] mg tablet 17:22: 00:00 every 6 [facility] 12 :00 (six) l hours as needed for moderate [place] [address] 50mg Q6H Take 50 mg M ethodi (ULTRAM) 50 7-05 07-[address] mg tablet 17:22: 00:00 every 6 [facility] 12 :00 (six) l hours as needed for moderate pain [place] [address] 50mg Q6H Take 50 mg M ethodi (ULTRAM) 50 7-05 07-[address] mg tablet 17:22: 00:00 every 6 [facility] 12 :00 (six) l hours as needed for moderate pain [place] [address] 50mg Q6H Take 50 mg M ethodi (ULTRAM) 50 7-05 07-[address] mg tablet 17:22: 00:00 every 6 [facility] 12 :00 (six) l hours as needed for moderate pain .Acute Pain. traMADol 2021- No 18641 50mg Q6H Take 50 mg M ethodi (ULTRAM) 50 7-05 07-[address] mg tablet 17:22: 00:00 every 6 [facility] 12 :00 (six) l hours as needed for moderate pain .Acute Pain. traMADol 2021-0 2021- No 223[address] 50mg Q6H Take 50 mg M ethodi [...] No Take by Me bernabe (ZOFRAN) 8 705 07-[address] MG tablet 17:21: 00:00 [...] l ondansetron 2021- No Take by Me srinivasa (ZOFRAN) 8 09-[address] MG tablet [...] leuprolide 2021- No Lupron Meth valencia (LUPRON -[address] DEPOT, 3 17:21: 00:00 11.25 [...] 24 hr 24 :00 l tablet isosorbide 2021- No 30mg QD Take 30 mg [facility] mononitrate 09-[address] (IMDUR) 30 17:21: 00:00 [...] 30mg QD Take 30 mg [facility] mononitrate 7- 07-[address] (IMDUR) 30 17:21: 00:00 daily. [facility] MG 24 hr 24 :00 l tablet isosorbide 2022-0 2022- No 30mg QD Take 30 mg [facility] mononitrate 7-05 07-[address] (IMDUR) 30 17:21: 00:00 daily. [facility] MG 24 hr 24 :00 l tablet isosorbide 2022-0 2022- No 30mg QD Take 30 mg [facility] mononitrate 7- 07-[address] (IMDUR) 30 17:21: 00:00 daily. [facility] MG 24 hr 24 :00 l tablet isosorbide 2022-0 2022- No 30mg QD Take 30 mg [facility] mononitrate 7- 07-[address] (IMDUR) 30 17:21: 00:00 daily. [facility] MG 24 hr 24 :00 l tablet isosorbide 2022-0 2022- No 30mg QD Take 30 mg [facility] mononitrate 7- 07-[address] (IMDUR) 30 17:21: 00:00 daily. [facility] MG 24 hr 24 :00 l tablet isosorbide 2022-0 2022- No 30mg QD Take 30 mg [facility] mononitrate 7- 07-[address] (IMDUR) 30 17:21: [...] 24 hr 24 :00 l tablet gabapentin 2-0 2022- No 600mg QD Take [...] :00 nightly. l gabapentin 2022-0 2022- No 300mg Q.5D Take [...] day. One tab in AM. gabapentin 2-0 2- No 300mg Q.5D Take 300 M [...] day. One tab in AM. gabapentin 2-0 2- No 300mg Q.5D Take 300 M [...] a day. One tab in AM. gabapentin 2021- No 300mg Q.5D Take 300 M ethodi (NEURONTIN) 09-21-[address] 300 mg 17:21: 00:00 [...] a 40 :00 morning. l citalopram 2021-0 2021- No 20mg QD Take 20 mg [facility] (CeleXA) 20 09-[address] MG tablet 17:20: 00:00 every Hospit a 40 :00 morning. l citalopram 2021-0 2021- No 20mg QD Take 20 mg [facility] (CeleXA) 20 09-[address] MG tablet 17:20: 00:00 every Hospit a 40 :00 morning. l citalopram 2021-0 2021- No 20mg QD Take 20 mg [facility] (CeleXA) 20 09-[address] MG tablet 17:20: 00:00 every Hospit a 40 :00 morning. l citalopram 2021-0 2021- No 20mg QD Take 20 mg [facility] (CeleXA) 20 09-[address] MG tablet 17:20: 00:00 every Hospit a 40 :00 morning. l citalopram 2021-0 2021- No 20mg QD Take 20 mg [facility] (CeleXA) 20 7-05 07-[address] MG tablet 17:20: 00:00 [...] a 40 :00 morning. l citalopram 2021-0 2021- No 20mg QD Take 20 mg [facility] (CeleXA) 09-[address] MG tablet 17:20: 00:00 every Hospit a 40 :00 morning. l citalopram 2021-2021- No 20mg QD Take 20 mg [facility] (CeleXA) 09-[address] MG tablet 17:20: 00:00 every Hospit a 40 :00 morning. l citalopram 2021-0 2021- No 20mg QD Take 20 mg [facility] (CeleXA) 09-[address] MG tablet 17:20: 00:00 every Hospit a 40 :00 morning. l citalopram 2021-0 2- No 20mg QD Take 20 mg [facility] (CeleXA) 20 09-[address] MG tablet 17:20: 00:00 every Hospit a 40 :00 morning. l citalopram 2021-0 2- No 20mg QD Take 20 mg [facility] (CeleXA) 20 7-05 07-[address] MG tablet 17:20: 00:00 [...] every l 24 hr morning. tablet buPROPion 2021-0 2021- No 300mg QD Take 300 Me thodi XL 7-05 07-[address] (WELLBUTRIN 17:19: 00:00 mouth [facility] XL) 300 MG 41 :00 every l 24 hr morning. tablet buPROPion 2021-0 2021- No 300mg QD Take 300 Me thodi XL 7-05 07-[address] (WELLBUTRIN 17:19: 00:00 mouth [facility] XL) 300 MG 41 :00 every l 24 hr morning. tablet buPROPion 2021-0 2021- No 300mg QD Take 300 Me [...] DAILY carbidopa-l 2020-03 Yes TAKE 3 Meth vlaencia evodopa 2-[address] (SINEMET) 00:00: [...] First dose [place] mg 00 on [facility] Medical 06/06/20 at Branch 2100, Until Discontinu ed, Routine empaglifloz Yes 1{tbl} Take 1 Un everette in-linaglip 3-20 tablet by ity of tin 19:26: mouth [place] (GLYXAMBI) daily. Medical 25-5 mg Tab Branch clopidogreL 0 Yes 75mg Take 75 mg Univers 75 mg 3-20 by mouth ity of tablet 19:26: daily. [place] [address] Medical Branch gabapentin 2020-0 Yes 300mg Take 300 Un everette 300 mg 3-20 mg by ity of capsule 19:26: mouth 3 [place] 49 (three) Medical times Branch daily. isosorbide 2020-0 Yes 30mg Take 30 mg U nivers mononitrate 3-20 by mouth. ity of 30 mg 24 hr 19:26: [place] tablet Medical Branch simvastatin 2020-0 Yes Take by Uni vers 80 mg 3-20 mouth at ity of tablet 19:26: bedtime. [place] [address] Medical Branch carbidopa-l 2021-0 Yes 3{tbl} Take 3 Un everette evodopa 3-20 tablets by ity of 25-100 mg 19:26: mouth 3 [place] tablet 49 (three) Medical times Branch daily. predniSONE 0 Yes 50mg Take 50 mg U nivers 50 mg 3-20 by mouth ity of tablet 19:26: daily. [place] [address] Medical Branch vilazodone Yes Take by [facility] ers (VIIBRYD) 3-20 mouth. ity of 10 mg Tab 19:26: [place] [address] Medical Branch eszopiclone Yes 3mg Take 3 mg U nivers 3 mg tablet 3-20 by mouth ity of 19:26: at [place] [address] bedtime. Medical Branch melatonin Yes Take [facility] mg Tab 3-20 mouth. ity of 19:26: [place] [address] Medical Branch empaglifloz Yes 1{tbl} Take 1 Un everette in-linaglip 3-20 tablet by ity of tin 19:26: mouth [place] (GLYXAMBI) daily. Medical 25-5 mg Tab Branch clopidogreL Yes 75mg Take 75 mg Univers 75 mg 3-20 by mouth ity of tablet 19:26: daily. [place] [address] Medical Branch gabapentin 0 Yes 300mg Take 300 Un everette 300 mg 3-20 mg by ity of capsule 19:26: mouth 3 [place] 49 (three) Medical times Branch daily. isosorbide Yes 30mg Take 30 mg U nivers mononitrate 3-20 by mouth. ity of 30 mg 24 hr 19:26: [place] [address] Medical Branch simvastatin 0 Yes Take by Uni vers 80 mg 3-20 mouth at ity of tablet 19:26: bedtime. [place] [address] Medical Branch carbidopa-l Yes 3{tbl} Take 3 Un everette evodopa 3-20 tablets by ity of 25-100 mg 19:26: mouth 3 [place] tablet 49 (three) Medical times Branch daily. predniSONE Yes 50mg Take 50 mg U nivers 50 mg 3-20 by mouth ity of tablet 19:26: daily. [place] [address] Medical Branch vilazodone Yes Take by [facility] ers (VIIBRYD) 3-20 mouth. ity of 10 mg Tab 19:26: [place] [address] Medical Branch eszopiclone Yes 3mg Take 3 mg U nivers 3 mg tablet 3-20 by mouth ity of 19:26: at [place] [address] bedtime. Medical Branch melatonin 0 Yes Take by Unive rs 10 mg Tab 3-20 mouth. ity of 19:26: [place] [address] Medical Branch empaglifloz Yes 1{tbl} Take 1 Un everette in-linaglip 3-20 tablet by ity of tin 19:26: mouth [place] (GLYXAMBI) 49 daily. Medical 25-5 mg Tab Branch clopidogreL 0 Yes 75mg Take 75 mg Univers 75 mg 3-20 by mouth ity of tablet 19:26: daily. [place] [address] Medical Branch gabapentin Yes 300mg Take 300 Un everette 300 mg 3-20 mg by ity of capsule 19:26: mouth 3 [place] [address] (three) Medical times Branch daily. isosorbide Yes 30mg Take 30 mg U nivers mononitrate 3-20 by mouth. ity of 30 mg 24 hr 19:26: [place] [address] Medical Branch simvastatin Yes Take by Uni vers 80 mg 3-20 mouth at ity of tablet 19:26: bedtime. [place] [address] Medical Branch carbidopa-l Yes 3{tbl} Take 3 Un everette evodopa 3-20 tablets by ity of 25-100 mg 19:26: mouth 3 [place] tablet 49 (three) Medical times Branch daily. predniSONE Yes 50mg Take 50 mg U nivers 50 mg 3-20 by mouth ity of tablet 19:26: daily. [place] [address] Medical Branch vilazodone Yes Take by Univ ers (VIIBRYD) 3-20 mouth. ity of 10 mg Tab 19:26: [place] [address] Medical Branch eszopiclone Yes 3mg Take 3 mg U nivers 3 mg tablet 3-20 by mouth ity of 19:26: at [place] [address] bedtime. Medical Branch melatonin Yes Take by Unive rs 10 mg Tab 3-20 mouth. ity of 19:26: [place] [address] Medical Branch empaglifloz Yes 1{tbl} Take 1 Un everette in-linaglip 3-20 tablet by ity of tin 19:26: mouth [place] (GLYXAMBI) 49 daily. Medical 25-5 mg Tab Branch clopidogreL 2020-0 Yes 75mg Take 75 mg Univers 75 mg 3-20 by mouth ity of tablet 19:26: daily. [place] [address] Medical Branch gabapentin 0 Yes 300mg Take 300 Un everette 300 mg 3-20 mg by ity of capsule 19:26: mouth 3 [place] [address] (three) Medical times Branch daily. isosorbide 0 Yes 30mg Take 30 mg U nivers mononitrate 3-20 by mouth. ity of 30 mg 24 hr 19:26: [place] [address] Medical Branch simvastatin 0 Yes Take by Uni vers 80 mg 3-20 mouth at ity of tablet 19:26: bedtime. [place] [address] Medical Branch carbidopa-l 0 Yes 3{tbl} Take 3 Un everette evodopa 3-20 tablets by ity of 25-100 mg 19:26: mouth 3 [place] tablet (three) Medical times Branch daily. predniSONE 0 Yes 50mg Take 50 mg U nivers 50 mg 3-20 by mouth ity of tablet 19:26: daily. [place] [address] Medical Branch vilazodone 0 Yes Take by [facility] ers (VIIBRYD) 3-20 mouth. ity of 10 mg Tab 19:26: [place] [address] Medical Branch eszopiclone 0 Yes 3mg Take 3 mg U nivers 3 mg tablet 3-20 by mouth ity of 19:26: at [place] [address] bedtime. Medical Branch melatonin 0 Yes Take by Unive rs 10 mg Tab 3-20 mouth. ity of 19:26: [place] [address] Medical Branch olmesartan 0 2020- No 20mg Take 20 mg Univers 20 mg 3-20 03-20 by mouth. ity of tablet 17:28: 00:00 [place] 53 :00 Medical Branch empaglifloz 0 Yes 1{tbl} Take 1 Un everette in-linaglip 3-20 tablet by ity of tin 14:26: mouth [place] (GLYXAMBI) 49 daily. Medical 25-5 mg Tab Branch simvastatin 0 Yes Take by Uni vers 80 mg 3-20 mouth at ity of tablet 14:26: bedtime. [address] predniSONE Yes 50mg Take 50 mg U nivers 50 mg 3-20 by mouth ity of tablet 14:26: daily. [place] [address] Medical Branch vilazodone Yes Take by Univ ers (VIIBRYD) 3-20 mouth. ity of 10 mg Tab 14:26: [address] eszopiclone Yes 3mg Take 3 mg U nivers 3 mg tablet 3-20 by mouth ity of 14:26: at [place] [address] bedtime. Medical Branch melatonin Yes Take by Unive rs 10 mg Tab 3-20 mouth. ity of 14:26: [address] predniSONE Yes 50mg 50 mg, Unive rs (DELTASONE) 3-20 Oral, ity of tablet 50 14:00: DAILY, [place] mg 00 First dose Medical on [facility] 06/06/20 at 0900, Until Discontinu ed, Routine isosorbide Yes 30mg 30 mg, Unive rs mononitrate 3-20 Oral, ity of (IMDUR) 24 14:00: DAILY, [place] hr tablet 00 First dose Medi tony 30 mg on [facility] 06/06/20 at 0900, Until Discontinu ed, Routine clopidogreL Yes 75mg 75 mg, Univ ers (PLAVIX) 3-20 Oral, ity of tablet 75 14:00: DAILY, [place] mg 00 First dose Medical on [facility] 06/06/20 at 0900, Until Discontinu ed, Routine ergocalcife Yes [id number] 50,000 Un everette rol 3-20 Units, ity of (vitamin 14:00: Oral, [place] d2) 00 QWEEKLY, Medical (CALCIFEROL First dose Br anch ) capsule on [facility] 50,000 06/06/20 at Units 0900, Until Discontinu ed, Routine carbidopa-l Yes 2{tbl} 2 tablet, Univers evodopa 3-20 Oral, TID, ity of (SINEMET-25 13:00: First dose [place] /100) 00 on [facility] Medical 25-100 mg 06/06/20 at Bran ch tablet 2 0800, tablet Until Discontinu ed, Routine gabapentin Yes 300mg 300 mg, Uni vers (NEURONTIN) 3-20 Oral, TID, it y of capsule 300 13:00: First dose [place] mg 00 on [facility] Medical 06/06/20 at Branch 0800, Until Discontinu ed, Routine zinc Yes 220mg 220 mg, Univers sulfate 3-20 Oral, TID, ity of (ORAZINC) 13:00: First dose [place] capsule 220 00 on [facility] Medica l mg 06/06/20 at Branch 0800, Until Discontinu ed, Routine ascorbic 2020-0 Yes 500mg 500 mg, Unive rs acid 3-20 Oral, BID, ity of (vitamin C) 13:00: First dose [place] (VITAMIN C) 00 on [facility] Medica l tablet 500 06/06/20 at [facility] mg 0800, Until Discontinu ed, Routine Sliding 0 Yes Subcutaneo Univ ers Scale 3-20 us, AC, ity of Insulin-Reg 12:30: First dose [place] ular + Fsbg 00 on [facility] Medica l Testing 06/06/20 at Branch 0730, Until Discontinu ed, Routine melatonin 0 Yes 9mg 9 mg, Univers (MELATIN) 3-20 Oral, ity of tablet 9 mg 11:42: QHSPRN, [place] as 56 Starting Medical [facility] Branch 06/06/20 at 0642, Until Discontinu ed, Insomnia heparin Yes 5000U 5,000 Univers (porcine) 3-20 Units, ity of injection 11:00: Subcutaneo [place] 5,000 Units 00 us, Q8H, Medi tony First dose Branch on [facility] 06/06/20 at 0600, Until Discontinu ed, Routine NaCl 0.9% 2020- No 1000mL at 125 Uni vers (NS) IV 3-20 03-20 mL/hr, IV ity of infusion 10:15: 11:09 Infusion, [place] as 1,000 mL 00 :00 ONCE, 1 Medical dose, [facility] Branch 06/06/20 at 0515, Routine glucagon 0 Yes 1mg 1 mg, Univers (GLUCAGEN 3-20 Intramuscu ity of DIAGNOSTIC 09:08: lar, PRN, [place] KIT) 47 Starting Medical injection 1 [facility] Branch mg 06/06/20 at 0408, Until Discontinu ed, ANITA, Blood Glucose < or = 70 mg/dL and patient is unable to swallow or has mental changes. dextrose 50 Yes 25mL 25 mL, Univ ers % in water 3-20 Slow IV ity of (D50W) 09:08: Push, PRN, [place] injection 47 Starting Medica l 25 mL Sat Branch 06/06/20 at 0408, Until Discontinu ed, ANITA, Blood Glucose < or = 70 mg/dL and patient is unable to swallow or has mental status changes. ondansetron Yes 4mg 4 mg, Slow Univers (ZOFRAN 3-20 IV Push, ity of (PF)) 09:08: Q6HPRN, [place] injection 4 00 Starting Medi tony mg Sat Branch 06/06/20 at 0408, Until Discontinu ed, Routine, Nausea and Vomiting (N/V) traMADoL 2020- No 50mg 50 mg, Univer s (ULTRAM) 06-06-22 Oral, ity of tablet 50 09:07: 09:06 Q8HPRN[place] mg 55 :55 Starting Medical Sat Branch 06/06/20 at 0407, Until 06/08/20 at 0406, Routine, Pain (scale 4-6) acetaminoph Yes 650mg 650 mg, Un everette en 3-20 Oral, ity of (TYLENOL) 09:07: Q6HPRN, [place] tablet 650 53 Starting Medic al mg Sat Branch 06/06/20 at 0407, Until Discontinu ed, Routine, Pain (scale 1-3) NaCl 0.9% 2020- No 1000mL at 999 Uni vers (NS) bolus 06-06 03-20 mL/hr, ity of infusion 05:30: 05:11 1,000 mL, Roger as 1,000 mL 00 :00 IV Medical Piggyback, Branch ONCE, 1 dose, 06/06/20 at 0030, STAT ascorbic Yes [id number] 500mg Take 1 U nivers acid, 3-20 tablet by ity of vitamin C, 00:00: mouth 2 [place] 500 mg 00 (two) Medical tablet times Branch daily. Cholecalcif Yes [id number] 1000U Take 1 Univers arjun, 3-20 capsule by ity of Vitamin D3, 00:00: mouth [place] 25 mcg 00 daily. Medical (1,000 Branch unit) capsule zinc 2020-0 Yes [id number] 220mg Take 1 Unive rs sulfate 220 3-20 capsule by it y of (50) mg 00:00: mouth 3 [place] capsule 00 (three) Medical times Branch daily. ascorbic 2021-0 Yes [id number] 500mg Take 1 U nivers acid, 3-20 tablet by ity of vitamin C, 00:00: mouth 2 [place] 500 mg 00 (two) Medical tablet times Branch daily. Cholecalcif 2020-0 Yes [id number] 1000U Take 1 [facility] arjun, 3-20 capsule by ity of Vitamin D3, 00:00: mouth [place] 25 mcg 00 daily. Medical (1,000 Branch unit) capsule zinc 2020-0 Yes [id number] 220mg Take 1 Unive rs sulfate 220 3-20 capsule by it y of (50) mg 00:00: mouth 3 [place] capsule 00 (three) Medical times Branch daily. ascorbic 2020-0 Yes [id number] 500mg Take 1 U nivers acid, 3-20 tablet by ity of vitamin C, 00:00: mouth 2 [place] 500 mg 00 (two) Medical tablet times Branch daily. Cholecalcif 2020-0 Yes [id number] 1000U Take 1 [facility] arjun, 3-20 capsule by ity of Vitamin D3, 00:00: mouth [place] 25 mcg 00 daily. Medical (1,000 Branch unit) capsule zinc 2020-0 Yes [id number] 220mg Take 1 Unive rs sulfate 220 3-20 capsule by it y of (50) mg 00:00: mouth 3 [place] capsule 00 (three) Medical times Branch daily. ascorbic 2021-0 Yes [id number] 500mg Take 1 U nivers acid, 3-20 tablet by ity of vitamin C, 00:00: mouth 2 [place] 500 mg 00 (two) Medical tablet times Branch daily. Cholecalcif 2021-0 Yes [id number] 1000U Take 1 [facility] arjun, 3-20 capsule by ity of Vitamin D3, 00:00: mouth [place] 25 mcg 00 daily. Medical (1,000 Branch unit) capsule zinc 2021-0 Yes [id number] 220mg Take 1 Unive rs sulfate 220 3-20 capsule by it y of (50) mg 00:00: mouth 3 [place] capsule 00 (three) Medical times Branch daily. ascorbic 2020-0 Yes [id number] 500mg Take 1 U nivers acid, 3-20 tablet by ity of vitamin C, 00:00: mouth 2 [place] 500 mg 00 (two) Medical tablet times Branch daily. zinc 2020-0 Yes [id number] 220mg Take 1 Unive rs sulfate 220 3-20 capsule by it y of (50) mg 00:00: mouth 3 [place] capsule 00 (three) Medical times Branch daily. ascorbic 2020-0 Yes [id number] 500mg Take 1 U nivers acid, 3-20 tablet by ity of vitamin C, 00:00: mouth 2 [place] 500 mg 00 (two) Medical tablet times Branch daily. Cholecalcif 2020-0 Yes [id number] 1000U Take 1 [facility] arjun, 3-20 capsule by ity of Vitamin D3, 00:00: mouth [place] 25 mcg 00 daily. Medical (1,000 Branch unit) capsule zinc 2020-0 Yes [id number] 220mg Take 1 Unive rs sulfate 220 3-20 capsule by it y of (50) mg 00:00: mouth 3 [place] capsule 00 (three) Medical times Branch daily. ascorbic 2020-0 Yes [id number] 500mg Take 1 U nivers acid, 3-20 tablet by ity of vitamin C, 00:00: mouth 2 [place] 500 mg 00 (two) Medical tablet times Branch daily. zinc 2020-0 Yes [id number] 220mg Take 1 Unive rs sulfate 220 3-20 capsule by it y of (50) mg 00:00: mouth 3 [place] capsule 00 (three) Medical times Branch daily. ascorbic 2020-0 Yes [id number] 500mg Take 1 U nivers acid, 3-20 tablet by ity of vitamin C, 00:00: mouth 2 [place] 500 mg 00 (two) Medical tablet times Branch daily. zinc 202-0 Yes [id number] 220mg Take 1 Unive rs sulfate 220 3-20 capsule by it y of (50) mg 00:00: mouth 3 [place] capsule 00 (three) Medical times Branch daily. ascorbic 2020-0 Yes [id number] 500mg Take 1 U nivers acid, 3-20 tablet by ity of vitamin C, 00:00: mouth 2 [place] 500 mg 00 (two) Medical tablet times Branch daily. zinc Yes [id number] 220mg Take 1 Unive rs sulfate 220 3-20 capsule by it y of (50) mg 00:00: mouth 3 [place] capsule 00 (three) Medical times Branch daily. Cholecalcif 3- No [id number] 1000U Take 1 [facility] arjun, 3-20 - capsule by ity of Vitamin D3, 00:00: 00:00 mouth [place] 25 mcg 00 :00 daily. Medical (1,000 Branch unit) capsule Cholecalcif 2022- No [id number] 1000U Take 1 [facility] arjun, 3-20 - capsule by ity of Vitamin D3, 00:00: 00:00 mouth [place] 25 mcg 00 :00 daily. Medical (1,000 Branch unit) capsule acetaminoph 2021- No [id number] 650mg Take 2 Univers en 325 mg 3-20 -21 tablets by ity of tablet 00:00: 04:59 mouth [place] 00 :00 every 6 Medical (six) Branch hours as needed for Pain (scale 1-3) or Temp > 38.5 C. acetaminoph 2021- No [id number] 650mg Take 2 Univers en 325 mg 3-20 03-21 tablets by ity of tablet 00:00: 04:59 mouth [place] 00 :00 every 6 Medical (six) Branch hours as needed for Pain (scale 1-3) or Temp > 38.5 C. acetaminoph 2021- No [id number] 650mg Take 2 Univers en 325 mg 3-20 03-21 tablets by ity of tablet 00:00: 04:59 mouth [place] 00 :00 every 6 Medical (six) Branch hours as needed for Pain (scale 1-3) or Temp > 38.5 C. acetaminoph 2021- No [id number] 650mg Take 2 Univers en 325 mg 3-20 03-21 tablets by ity of tablet 00:00: 04:59 mouth [place] 00 :00 every 6 Medical (six) Branch hours as needed for Pain (scale 1-3) or Temp > 38.5 C. ondansetron 2019-03 Yes Take by [facility] (ZOFRAN) 8 2-[address] MG tablet 13:55: Hospita 46 l ondansetron 2019-03 Yes Take by [facility] (ZUNILDAFRAN) 8 2-[address] MG tablet 13:55: [...] THEN 0.5MG EVERY WEEK FOR 4 WEEKS [facility]2019-03- No INJECT Methodi 0.25 mg or 2-01 07-[address] 0.5 mg(2 00:00: 00:00 UNDER THE Hos efren mg/1.5 mL) 00 :00 SKIN EVERY l pen WEEK FOR 4 injector WEEKS THEN 0.5MG EVERY WEEK FOR 4 WEEKS [facility]2019-03- No INJECT Methodi 0.25 mg or 2- [...] THEN 0.5MG EVERY WEEK FOR 4 WEEKS [facility]2019-03- No INJECT Methodi 0.25 mg or 2- 07-[address] 0.5 mg(2 00:00: 00:00 UNDER THE Hos efren mg/1.5 mL) 00 :00 SKIN EVERY l pen WEEK FOR 4 injector WEEKS THEN 0.5MG EVERY WEEK FOR 4 WEEKS [facility]2019-03- No INJECT Methodi 0.25 mg or - 07-[address] 0.5 mg(2 00:00: 00:00 UNDER THE Hos efren mg/1.5 mL) 00 :00 SKIN EVERY l pen WEEK FOR 4 injector WEEKS THEN 0.5MG EVERY WEEK FOR 4 WEEKS [facility]2019-03- No INJECT Methodi 0.25 mg or - 07-[address] 0.5 mg(2 00:00: 00:00 UNDER THE Hos efren mg/1.5 mL) 00 :00 SKIN EVERY l pen WEEK FOR 4 injector WEEKS THEN 0.5MG EVERY WEEK FOR 4 WEEKS [facility]2019-03- No INJECT Methodi 0.25 mg or - 07-[address] 0.5 mg(2 00:00: 00:00 [...] hr 20 l tablet traMADol 2019-03 Yes [id number] 50mg Q6H Take 50 mg Me thodi [...] hr 20 l tablet traMADol 2019-03 Yes [id number] 50mg Q6H Take 50 mg Me thodi [...] 10:22: mouth Hospita tablet 19 nightly. l mecobal/lev 2020-0 Yes Take by [facility] [...] mg tablet 16:16: daily. Medica l [address] [place] empaglifloz 2020-0 Yes 1{tbl} QD Take [address] [place] 8-19 tablet by Mathew es tin 16:16: mouth Medical (GLYXAMBI) 27 daily. Center 10-5 mg per tablet simvastatin 2020-0 Yes 80mg QD Take [address] [facility] (ZOCOR) 80 8-19 by mouth [facility] tablet 16:16: nightly. Medi tony 27 Center gabapentin 2020-0 Yes 300mg Q.[id number] Take [address] (NEURONTIN) 8-19 [id number] mg by L ukes 300 MG 16:16: [...] tony 27 Center gabapentin 2020-0 Yes 300mg Q.22321012 Take [address] (NEURONTIN) 8-19 [id number] mg by L ukes 300 MG 16:16: [...] tony 27 Center gabapentin 2020-0 Yes 300mg Q.[id number] Take [address] (NEURONTIN) 8-19 [id number] mg by L ukes 300 MG 16:16: [...] by [facility] 16:16: mouth Medical 27 daily. [place] isosorbide 2020-0 Yes 30mg Take 30 mg [...] 20 MG 16:16: daily. Medical tablet [address] [place] citalopram 2020-0 Yes 20mg QD Take [address] (CELEXA) 20 8-19 by mouth [facility] MG tablet 16:16: daily. Medica l [address] [place] citalopram 2020-0 Yes 20mg QD Take [address] (CELEXA) 20 8-19 by mouth [facility] MG tablet 16:16: daily. Medica l [address] [place] clopidogreL 2020-0 Yes 75mg QD Take [address] [facility] (PLAVIX) 75 8-19 by mouth [facility] mg tablet 16:16: daily. Medica l [address] [place] empaglifloz 2020-0 Yes 1{tbl} QD Take [address] [place] 8-19 tablet by Mathew es tin 16:16: mouth Medical (GLYXAMBI) 27 daily. [place] 10-5 mg per tablet simvastatin 2019-0 Yes 80mg QD Take [address] [facility] [address] (ZOCOR) 80 8-19 by mouth [facility] MG tablet 16:16: nightly. Medi tony [address] [place] gabapentin 2020-0 Yes 300mg Q.[id number] Take [address] (NEURONTIN) 8-19 [id number] mg by L ukes 300 MG 16:16: [...] mouth [facility] MG tablet 16:16: [facility] [address] simvastatin 2020-0 Yes 80mg QD Take [address] [facility] [address] (ZOCOR) 80 8-19 by mouth [facility] MG tablet 16:16: nightly. [address] clopidogreL 2020-0 Yes 75mg QD Take [address] [facility] [address] (PLAVIX) 75 8-19 by mouth [facility] s mg tablet 16:16: daily. Medica [address] empaglifloz 2020-0 Yes 1{tbl} QD Take [address] [place] 8-19 tablet by Mathew es tin 16:16: mouth Medical (GLYXAMBI) 27 daily. Center 10-5 mg per tablet simvastatin 2020-0 Yes 80mg QD Take [address] [facility] [address] (ZOCOR) 80 8-19 by mouth [facility] tablet 16:16: nightly. [address] gabapentin 2020-0 Yes 300mg Q.[id number] Take [address] (NEURONTIN) 8-19 [id number] mg by L ukes 300 MG 16:16: [...] 27 daily. Center gabapentin 2020-0 Yes 300mg Q.[id number] Take [address] (NEURONTIN) 8-19 [id number] mg by L ukes 300 MG 16:16: [...] tony 27 Center gabapentin 2020-0 Yes 300mg Q.[id number] Take [address] (NEURONTIN) 8-19 [id number] mg by L ukes 300 MG 16:16: [...] mouth [facility] mg tablet 16:16: [facility]. [facility] [place] empaglifloz 2020-0 Yes 1{tbl} QD Take [address] [place] 8-19 tablet by Mathew es tin 16:16: mouth Medical (GLYXAMBI) 27 daily. Center 10-5 mg per tablet simvastatin 2020-0 Yes 80mg QD Take [address] [facility] [address] (ZOCOR) 80 8-19 by mouth [facility] MG tablet 16:16: nightly. Medi tony 27 Center gabapentin 2020-0 Yes 300mg Q.[id number] Take [address] (NEURONTIN) 8-19 [id number] mg by L ukes 300 MG 16:16: [...] MG tablet 16:16: daily. Medica l [address] [place] clopidogreL 2020-0 Yes 75mg QD Take [address] [facility] [address] (PLAVIX) 75 8-19 by mouth Luke [facility] mg tablet 16:16: daily. Medica l 27 [place] empaglifloz 2020-0 Yes 1{tbl} QD Take [address] [place] 8-19 tablet by Mathew es tin 16:16: mouth Medical (GLYXAMBI) 27 daily. Center 10-5 mg per tablet simvastatin 2020-0 Yes 80mg QD Take [address] [facility] [address] (ZOCOR) 80 8-19 by mouth [facility] MG tablet 16:16: nightly. Medi tony 27 Center gabapentin 2020-0 Yes 300mg Q.[id number] Take [address] (NEURONTIN) 8-19 [id number] mg by L ukes 300 MG 16:16: [...] by mouth [facility] tablet 16:16: nightly. [address] gabapentin 2020-0 Yes 300mg Q.[id number] Take [address] (NEURONTIN) 8-19 [id number] mg by L ukes 300 MG 16:16: [...] by mouth [facility] tablet 16:16: nightly. [address] gabapentin 2020-0 Yes 300mg Q.[id number] Take [address] (NEURONTIN) 8-19 [id number] mg by Noé ukes 300 MG 16:16: [...] [facility]ukes 16:16: mouth Medical 27 daily. Center predniSONE 2020-0 Yes 5mg Q.5D Take [...] tony 27 Center gabapentin 2020-0 Yes 300mg Q.[id number] Take [address] (NEURONTIN) 8-19 [id number] mg by L ukes 300 MG 16:16: [...] tony 27 Center gabapentin 2020-0 Yes 300mg Q.[id number] Take [address] (NEURONTIN) 8-19 [id number] mg by L ukes 300 MG 16:16: [...] mg tablet 16:16: daily. Medica l [address] [place] empaglifloz 2020-0 Yes 1{tbl} QD Take [address] [place] 8-19 tablet by Mathew es tin 16:16: mouth Medical (GLYXAMBI) 27 daily. Center 10-5 mg per tablet simvastatin 2020-0 Yes 80mg QD Take [address] (ZOCOR) 80 8-19 by mouth [facility] MG tablet 16:16: nightly. Medi tony 27 Center gabapentin 2020-0 Yes 300mg Q.[id number] Take [address] (NEURONTIN) 8-19 [id number] mg by L ukes 300 MG 16:16: [...] tablet 16:16: nightly. Medi tony 27 Center clopidogreL 2020-0 Yes 75mg QD [...] tony 27 Center gabapentin 2020-0 Yes 300mg Q.[id number] Take [address] (NEURONTIN) 8-19 [id number] mg by L ukes 300 MG 16:16: [...] 27 daily. Center gabapentin 2020-0 Yes 300mg Q.[id number] Take [address] (NEURONTIN) 8-19 [id number] mg by L ukes 300 MG 16:16: [...] tony 27 Center gabapentin 2020-0 Yes 300mg Q.[id number] Take [address] (NEURONTIN) 8-19 [id number] mg by L ukes 300 MG 16:16: [...] tony 27 Center gabapentin 2020-0 Yes 300mg Q.[id number] Take [address] (NEURONTIN) 8-19 [id number] mg by L ukes 300 MG 16:16: [...] tony 27 Center gabapentin 2020-0 Yes 300mg Q.[id number] Take [address] (NEURONTIN) 8-19 [id number] mg by L ukes 300 MG 16:16: [...] mg tablet 16:16: daily. Medica l [address] [place] empaglifloz 2020-0 Yes 1{tbl} QD Take [address] [place] 8-19 tablet by Mathew es tin 16:16: mouth Medical (GLYXAMBI) 27 daily. Center 10-5 mg per tablet simvastatin 2020-0 Yes 80mg QD Take [address] (ZOCOR) 80 8-19 by mouth [facility] MG tablet 16:16: nightly. Medi tony 27 Center gabapentin 2020-0 Yes 300mg Q.45732452 Take [address] (NEURONTIN) 8-19 [id number] mg by L ukes 300 MG 16:16: [...] tony 27 Center gabapentin 2020-0 Yes 300mg Q.[id number] Take [address] (NEURONTIN) 8-19 [id number] mg by L ukes 300 MG 16:16: [...] tony 27 Center gabapentin 2020-0 Yes 300mg Q.[id number] Take [address] (NEURONTIN) 8-19 [id number] mg by L ukes 300 MG 16:16: 3D mouth 3 Medical capsule 27 (three) Center times daily. eszopiclone 2019-0 Yes 3mg Take 3 mg C HI [...] Center hours as needed for Nausea. carbidopa-l 2019-0 Yes 1{tbl} Q.5D Take [address] evodopa 8-19 tablet by Bernadette (SINEMET 16:16: mouth 2 Medica l CR) 25-100 27 (two) Center mg per times tablet daily. carbidopa-l 2019-0 2020- No 3{tbl} Q.91100014 Take 3 [facility] evodopa 08-[id number] (Sinemet) 00:00: 00:00 3D mouth 3 [facility]osp [facility] 25-100 mg 00 :00 (three) l per tablet times a day. carbidopa-l 2019-0 2020- No 3{tbl} Q.57240267 Take 3 [facility] evodopa 08-21 05-[id number] (Sinemet) 00:00: 00:00 3D [...] daily. Hospita tablet 00 :00 l olmesartan 2021- No 20mg QD Take 20 mg [facility] (BENICAR) 06-[address] 20 MG 00:00: 00:00 daily. Hospita tablet 00 :00 l predniSONE 2018- Yes 1 tab in Met [facility]odi (DELTASONE) 1-21 AM, [address] 5 mg tablet 00:00: in PM Hospi ta 00 l predniSONE 2018- Yes 1 tab in Met [facility]odi (DELTASONE) 21 AM, [address] 5 mg tablet 00:00: in PM Hospi ta 00 l predniSONE 2018-2021- No 1 tab in [facility] (DELTASONE) 04-09 07-05 AM, [address] 5 mg tablet 00:00: 00:00 in PM [facility] [place] 00 :00 l predniSONE 2018-2021- No 1 tab in [facility] (DELTASONE) 04-09 0705 AM, [address] 5 mg tablet 00:00: 00:00 in PM [facility] [place] 00 :00 l predniSONE 2018-2021- No 1 tab in [facility] (DELTASONE) 04-09 0705 AM, [address] 5 mg tablet 00:00: 00:00 in PM [facility] [place] 00 :00 l predniSONE 2018-2021- No 1 tab in [facility] (DELTASONE) 04-09-05 AM, [address] 5 mg tablet 00:00: 00:00 in PM [facility] [place] 00 :00 l predniSONE 2018-2021- No 1 tab in [facility] (DELTASONE) 04-09 07-05 AM, [address] 5 mg tablet 00:00: 00:00 in PM [facility] [place] 00 :00 l predniSONE 2018-2021- No 1 tab in [facility] (DELTASONE) 04-09 0705 AM, [address] 5 mg tablet 00:00: 00:00 in PM [facility] [place] 00 :00 l predniSONE 2018-2021- No 1 tab in [facility] (DELTASONE) 04-09 0705 AM, [address] 5 mg tablet 00:00: 00:00 in PM [facility] [place] 00 :00 l predniSONE 2018-2021- No 1 tab in [facility] (DELTASONE) 1-05 AM, [address] 5 mg tablet [...] PM [facility]osp [place] 00 :00 l predniSONE 2018-1 2- No 1 tab in [place] (DELTASONE) 04-0905 AM, [address] 5 mg tablet 00:00: 00:00 in PM [facility] [place] 00 :00 l predniSONE 2018-1 2- No 1 tab in [facility] [place] (DELTASONE) 04-0905 AM, [address] 5 mg tablet 00:00: 00:00 in PM [facility] [place] 00 :00 l predniSONE 2018-2- No 1 tab in [facility] [place] (DELTASONE) 04-0905 AM, [address] 5 mg tablet 00:00: 00:00 in PM [facility] [place] 00 :00 l predniSONE 2018-2021- No 1 tab in Me [facility]odi (DELTASONE) 04-09 07-05 AM, [address] 5 mg tablet 00:00: 00:00 in PM [facility] [place] 00 :00 l Immunizations Ordered Filled Immunization Date Status Comments [facility] e Immunization Name Name VIJI REED-19 2020-05-17 Completed [facility] VACC[facility]ATION 00:00:00 [facility] PFIZER COVID-19 2020-05-17 Completed [facility] VACCINATION 00:00:00 [facility] PFIZER COVID-19 2020-05-17 Completed [facility] VACCINATION 00:00:00 [facility] PFIZER COVID-19 2020-05-17 Completed [facility] VACCINATION 00:00:00 [facility] PFIZER COVID-19 2020-05-17 Completed [facility] VACCINATION 00:00:00 [facility] PFIZER COVID-19 2020-05-17 Completed [facility] VACCINATION 00:00:00 [facility] PFIZER COVID-19 2020-05-17 Completed [facility] VACCINATION 00:00:00 [facility] PFIZER COVID-19 2020-05-17 Completed [facility] VACCINATION 00:00:00 [facility] PFIZER COVID-19 2020-05-17 Completed [facility] VACCINATION 00:00:00 [facility] PFIZER COVID-19 2020-05-17 Completed [facility] VACCINATION 00:00:00 [facility] PFIZER COVID-19 2020-05-17 Completed [facility] VACCINATION 00:00:00 [facility] PFIZER COVID-19 2020-05-17 Completed [facility] VACCINATION 00:00:00 [facility] PFIZER COVID-19 2020-05-17 Completed [facility] VACCINATION 00:00:00 [facility] PFIZER COVID-19 2020-05-17 Completed [facility] VACCINATION 00:00:00 [facility] PFIZER COVID-19 2020-05-17 Completed [facility] VACCINATION 00:00:00 [facility] PFIZER COVID-19 2020-05-17 Completed [facility] VACCINATION 00:00:00 [facility] PFIZER COVID-19 2020-05-17 Completed [facility] VACCINATION 00:00:00 [facility] PFIZER COVID-19 2020-05-17 Completed [facility] VACCINATION 00:00:00 [facility] PFIZER COVID-19 2020-05-17 Completed [facility] VACCINATION 00:00:00 [facility] PFIZER COVID-19 2020-05-17 Completed [facility] VACCINATION 00:00:00 [facility] PFIZER COVID-19 2020-05-17 Completed [facility] VACCINATION 00:00:00 [facility] PFIZER COVID-19 2020-05-17 Completed [facility] VACCINATION 00:00:00 [facility] PFIZER COVID-19 2020-04-26 Completed [facility] VACCINATION 00:00:00 [facility] PFIZER COVID-19 2020-04-26 Completed [facility] VACCINATION 00:00:00 [facility] PFIZER COVID-19 2020-04-26 Completed [facility] VACCINATION 00:00:00 [facility] PFIZER COVID-19 2020-04-26 Completed [facility] VACCINATION 00:00:00 [facility] PFIZER COVID-19 2020-04-26 Completed [facility] VACCINATION 00:00:00 [facility] PFIZER COVID-19 2020-04-26 Completed [facility] VACCINATION 00:00:00 [facility] PFIZER COVID-19 2020-04-26 Completed [facility] VACCINATION 00:00:00 [facility] PFIZER COVID-19 2020-04-26 Completed [facility] VACCINATION 00:00:00 [facility] PFIZER COVID-19 2020-04-26 Completed [facility] VACCINATION 00:00:00 [facility] PFIZER COVID-19 2020-04-26 Completed [facility] VACCINATION 00:00:00 [facility] PFIZER COVID-19 2020-04-26 Completed [facility] VACCINATION 00:00:00 [facility] PFIZER COVID-19 2020-04-26 Completed [facility] VACCINATION 00:00:00 [facility] PFIZER COVID-19 2020-04-26 Completed [facility] VACCINATION 00:00:00 [facility] PFIZER COVID-19 2020-04-26 Completed [facility] VACCINATION 00:00:00 [facility] PFIZER COVID-19 2020-04-26 Completed [facility] VACCINATION 00:00:00 [facility] PFIZER COVID-19 2020-04-26 Completed [facility] VACCINATION 00:00:00 [facility] PFIZER COVID-19 2020-04-26 Completed [facility] VACCINATION 00:00:00 [facility] PFIZER COVID-19 2020-04-26 Completed [facility] VACCINATION 00:00:00 [facility] PFIZER COVID-19 2020-04-26 Completed [facility] VACCINATION 00:00:00 [facility] PFIZER COVID-19 2020-04-26 Completed [facility] VACCINATION 00:00:00 [facility] PFIZER COVID-19 2020-04-26 Completed [facility] VACCINATION 00:00:00 Hospital PFIZER COVID-19 2020-04-26 Completed [facility] VACCINATION 00:00:00 Hospital PFIZER COVID-19 Unknown Completed [facility] PFIZER COVID-19 Unknown Completed [facility] Vital Signs Vital Name Observation Time Observation Value Comments Source HEIGHT 2019-10-21 177.8 cm 00:00:00 WEIGHT 2019-10-21 120.203 kg 00:00:00 Systolic blood 2022-11-29 114 mm[Hg] [facility] pressure 21:21:00 [facility] Diastolic blood 2022-11-29 67 mm[Hg] University o f pressure 21:21:00 [facility] Heart rate 2022-11-29 66 /min University 21:21:00 [facility] Body temperature 2022-11-29 36.78 [facility] 21:21:00 [facility] Respiratory rate 2022-11-29 16 /min University of 21:21:00 [facility] Oxygen saturation 2022-11-29 95 /min [facility] of in Arterial blood 21:21:00 [place] [facility] by Pulse oximetry Branch Body weight 2022-11-29 87.998 kg Bed scale - pt University of 08:22:00 unable to stand [place] [facility] on scale [facility] BMI 2022-11-29 27.06 kg/m2 University of 08:22:00 [facility] Body height 2022-11-25 180.3 cm University of 03:52:00 [facility] Systolic blood 2022-11-25 155 mm[Hg] University of pressure 15:00:00 [facility] Diastolic blood 2022-11-25 76 mm[Hg] University o f pressure 15:00:00 [facility] Heart rate 2022-11-25 63 /min University of 15:00:00 [facility] Respiratory rate 2022-11-25 21 /min University of 15:00:00 [facility] Oxygen saturation 2022-11-25 99 /min [facility] of in Arterial blood 15:00:00 [place] [facility]i tony by Pulse oximetry Branch Body temperature 2022-11-25 37 [facility] of 13:00:00 [facility] Body height 2022-11-25 180.3 cm University of 03:52:00 [facility] Body weight 2022-11-25 93.895 kg University of 03:52:00 [facility] BMI 2022-11-25 27.21 kg/m2 University of 03:52:00 [facility] Systolic blood 2022-11-22 112 mm[Hg] University of pressure 23:00:00 [facility] Diastolic blood 2022-11-22 66 mm[Hg] University o f pressure 23:00:00 [facility] Heart rate 2022-11-22 60 /min University of 23:00:00 [facility] Respiratory rate 2022-11-22 15 /min University of 23:00:00 [facility] Oxygen saturation 2022-11-22 98 /min University of in Arterial blood 23:00:00 [place] [facility] Pulse oximetry Branch Body temperature 2022-11-22 36.11 Elizabet University of 16:38:00 [facility] Body height 2022-11-22 180.3 cm University of 16:38:00 [facility] Body weight 2022-11-22 95.709 kg University of 16:38:00 [facility] BMI 2022-11-22 29.43 kg/m2 University of 16:38:00 [facility] Systolic blood 2020-06-06 116 mm[Hg] University of pressure 18:01:00 [facility] Diastolic blood 2020-06-06 78 mm[Hg] University o f pressure 18:01:00 [facility] Heart rate 2020-06-06 88 /min University of 18:01:00 [facility] Respiratory rate 2020-06-06 18 /min University of 17:57:00 [facility] Oxygen saturation 2020-06-06 95 /min University of in Arterial blood 16:50:00 [place] [facility] Pulse oxim[facility] Body temperature 2020-06-06 37.06 Elizabet University of 16:34:00 [facility] Body height 2020-06-06 177.8 cm University of 09:17:00 [facility] Body weight 2020-06-06 108.5 kg University of 09:17:00 [facility] BMI 2020-06-06 34.32 kg/m2 University of 09:17:00 [facility] HEIGHT 2019-10-21 177.8 cm 00:00:00 WEIGHT 2019-10-21 120.203 kg 00:00:00 Body height 2021-10-12 177.8 cm [facility] 18:02:00 [facility] Body weight 2021-10-12 97.523 kg [facility] 18:02:00 Hospital BMI 2021-10-12 30.85 kg/m2 [facility] 18:02:00 Hospital Systolic blood 2021-09-29 133 mm[Hg] [facility] pressure 16:58:01 Hospital Diastolic blood 2021-09-29 72 mm[Hg] [facility] pressure 16:58:01 Hospital Heart rate 2021-09-29 73 /min [facility] 16:58:01 Hospital Body temperature 2021-09-29 36.17 Elizabet [facility] 16:58:01 Hospital Respiratory rate 2021-09-29 18 /min [facility] 16:58:01 Hospital Oxygen saturation 2021-09-29 91 /min [facility] in Arterial blood 16:58:01 [facility] by Pulse oximetry Procedures Procedure Date / Time Performing Clinician Source Performed POCT GLUCOSE (AUTOMATED) 2022-11-29 21:32:00 Jeffrey Quesada [facility] POCT GLUCOSE (AUTOMATED) 2022-11-29 16:53:00 Jeffrey Quesada Uni [facility] MAGNESIUM 2022-11-29 08:22:00 Keyana Billy [facility] BASIC METABOLIC PANEL (NA, 2022-11-29 08:22:00 Eugenio Billy [facility] K, CL, CO2, GLUCOSE, BUN, Medica l Branch CREATININE, CA) CBC WITH DIFF 2022-11-29 08:22:00 Keyana Billy [facility] POCT GLUCOSE (AUTOMATED) 2022-11-29 01:41:00 Jeffrey Quesada [facility] POCT GLUCOSE (AUTOMATED) 2022-11-28 22:16:00 Jeffrey Quesada [facility] POCT GLUCOSE (AUTOMATED) 2022-11-28 16:40:00 Jeffrey Quesada [facility] POCT GLUCOSE (AUTOMATED) 2022-11-28 16:40:00 Jeffrey Quesada [facility] POCT GLUCOSE (AUTOMATED) 2022-11-28 13:54:00 Jeffrey Quesada [facility] POCT GLUCOSE (AUTOMATED) 2022-11-28 13:54:00 Jeffrey Quesada Uni versity [facility] MAGNESIUM 2022-11-28 09:08:00 Degueure, [facility] BASIC METABOLIC PANEL (NA, 2022-11-28 09:08:00 Degueure, [facility] K, CL, CO2, GLUCOSE, BUN, Edilma [facility] CREATININE, CA) CBC WITH DIFF 2022-11-28 09:08:00 Degueure, [facility] MAGNESIUM 2022-11-28 09:08:00 Degueure, [facility] BASIC METABOLIC PANEL (NA, 2022-11-28 09:08:00 Degueure, [facility] K, CL, CO2, GLUCOSE, [facility] CREATININE, CA) CBC WITH DIFF 2022-11-28 09:08:00 [facility] POCT GLUCOSE (AUTOMATED) 2022-11-28 01:45:00 [facility] GLU[facility]SE (AUTOMATED) 2022-11-28 01:45:00 Jeffrey Quesada Uni versity [facility] POCT GLUCOSE (AUTOMATED) 2022-11-27 21:55:00 Jeffrey [facility] POCT GLUCOSE (AUTOMATED) 2022-11-27 21:55:00 Jeffrey Quesada versity [facility] POCT GLUCOSE (AUTOMATED) 2022-11-27 17:28:00 Jeffrey Quesada Uni versity of [facility] POCT GLUCOSE (AUTOMATED) 2022-11-27 17:28:00 Jeffrey Quesada versity [facility] POCT GLUCOSE (AUTOMATED) 2022-11-27 12:55:00 Jeffrey Quesada Uni versity [facility] POCT GLUCOSE (AUTOMATED) 2022-11-27 12:55:00 Jeffrey Quesada versity [facility] MAGNESIUM 2022-11-27 09:48:00 [facility] SPECIFIC [facility]TIGEN 2022-11-27 09:48:00 Tarun Joe eq [facility] BASIC METABOLIC PANEL (NA, 2022-11-27 09:48:00 Eugenio Billy [facility] K, CL, CO2, GLUCOSE, BUN, Medica l Branch CREATININE, CA) CBC WITHOUT DIFF 2022-11-27 09:48:00 Deb Rios [facility] MAGNESIUM 2022-11-27 09:48:00 Keyana Billy [facility] PROSTATIC SPECIFIC ANTIGEN 2022-11-27 09:48:00 Joe Mcneil eq [facility] BASIC METABOLIC PANEL (NA, 2022-11-27 09:48:00 Eugenio Billy [facility] K, CL, CO2, GLUCOSE, BUN, Medica l Branch CREATININE, CA) CBC WITHOUT DIFF 2022-11-27 09:48:00 Deb Rios [facility] POCT GLUCOSE (AUTOMATED) 2022-11-27 01:54:00 Jeffrey [facility]uesada [facility] POCT GLUCOSE (AUTOMATED) 2022-11-27 01:54:00 Jeffrey [facility]uesada [facility] POCT GLUCOSE (AUTOMATED) 2022-11-26 21:35:00 Jeffrey Quesada Uni versity of [facility] POCT GLUCOSE (AUTOMATED) 2022-11-26 21:35:00 Jeffrey Quesada Uni versity [facility] POCT GLUCOSE (AUTOMATED) 2022-11-26 18:33:00 Jeffrey Quesada Uni versity of [facility] POCT GLUCOSE (AUTOMATED) 2022-11-26 18:33:00 Jeffrey Quesada Uni versity of [facility] POCT GLUCOSE (AUTOMATED) 2022-11-26 13:59:00 Jeffrey Quesada Uni versity of [facility] POCT GLUCOSE (AUTOMATED) 2022-11-26 13:59:00 Jeffrey Quesada Uni versity of [facility] MAGNESIUM 2022-11-26 08:48:[address] [facility] BASIC METABOLIC PANEL (NA, 2022-11-26 08:48:00 Tori Jason [facility] K, CL, CO2, GLUCOSE, BUN, Medica l Branch CREATININE, CA) CBC WITH DIFF 2022-11-26 08:48:00 Eren [facility] MAGNESIUM 2022-11-26 08:48:00 Eren [facility] BASIC METABOLIC PANEL (NA, 2022-11-26 08:48:00 [facility] K, CL, CO2, GLUCOSE, BUN, Medica l Branch CREATININE, CA) CBC WITH DIFF 2022-11-26 08:48:00 Eren [facility] POCT GLUCOSE (AUTOMATED) 2022-11-26 00:33:00 Doctor Unassigned, [facility] POCT GLUCOSE (AUTOMATED) 2022-11-26 00:33:00 Doctor Unassigned, [facility] POCT GLUCOSE (AUTOMATED) 2022-11-25 22:27:00 Doctor Unassigned, [facility] POCT GLUCOSE (AUTOMATED) 2022-11-25 22:27:00 Doctor Unassigned, [facility] POCT ACT LOW RANGE 2022-11-25 21:16:00 Wilfredo [facility] POCT ACT LOW RANGE 2022-11-25 21:16:00 Alexandria Henley [facility] CARDIAC CATHETERIZATION 2022-11-25 21:15:22 Daniele Centeno [facility] CARDIAC CATHETERIZATION 2022-11-25 21:15:22 Jacobo Sanabria [facility] CARDIAC CATHETERIZATION 2022-11-25 21:15:22 Jacobo Sanabria [facility] CARDIAC CATHETERIZATION 2022-11-25 21:15:22 Daniele Centeno [facility] CARDIAC CATHETERIZATION 2022-11-25 21:15:22 Daniele Centeno [facility] CARDIAC CATHETERIZATION 2022-11-25 21:15:22 Jacobo Sanabria [facility] CARDIAC CATHETERIZATION 2022-11-25 21:15:22 Jacobo [facility] ersity of [facility] CARDIAC CATHETERIZATION 2022-11-25 21:15:22 Jacobo [facility] ersity of [facility] CARDIAC CATHETERIZATION 2022-11-25 21:15:22 Jacobo [facility] ersity of [facility] CARDIAC CATHETERIZATION 2022-11-25 21:15:22 Jacobo [facility] ersity of [facility] CARDIAC CATHETERIZATION 2022-11-25 21:15:22 Jacobo [facility] ersity of [facility] CARDIAC CATHETERIZATION 2022-11-25 21:15:22 Jacobo [facility] ersity of [facility] CARDIAC CATHETERIZATION 2022-11-25 21:15:22 Jacobo [facility] ersity of [facility] CARDIAC CATHETERIZATION 2022-11-25 21:15:22 Jacobo [facility] CATH PROCEDURE LOG 2022-11-25 19:28:56 Jacobo [facility] CATH PROCEDURE LOG 2022-11-25 19:28:56 Jacobo [facility] POCT GLUCOSE (AUTOMATED) 2022-11-25 17:14:[address] [facility] POCT GLUCOSE (AUTOMATED) 2022-11-25 17:14:00 Alexandria Henley [facility] TROPONIN I 2022-11-25 17:12:00 Eren [facility] ACTIVATED PARTIAL THRMPLAS 2022-11-25 17:12:00 Deb Rios [facility] TROPONIN I 2022-11-25 17:12:00 Eren [facility] ACTIVATED PARTIAL THRMPLAS 2022-11-25 17:12:00 Deb Rios [facility] TROPONIN I 2022-11-25 13:49:00 Eren [facility] POCT GLUCOSE (AUTOMATED) 2022-11-25 13:49:[address] [facility] TROPONIN I 2022-11-25 13:49:00 Eren [facility] POCT GLUCOSE (AUTOMATED) 2022-11-25 13:49:00 Alexandria Henley [facility] TROPONIN I 2022-11-25 09:06:00 Eren [facility] TROPONIN I 2022-11-25 09:06:00 Eren [facility] MAGNESIUM 2022-11-25 06:06:00 Alexandria Henley [facility] TROPONIN I 2022-11-25 06:06:00 Eren [facility] COMP. METABOLIC PANEL 2022-11-25 06:06:00 Alexandria Henley [facility] ([id number]) [facility] CBC WITH DIFF 2022-11-25 06:06:00 Dianna [facility] MAGNESIUM 2022-11-25 06:06:00 Alexandria Henley [facility] TROPONIN I 2022-11-25 06:06:00 Eren [facility] COMP. METABOLIC PANEL 2022-11-25 06:06:00 Alexandria Henley [facility] ([id number]) [facility] CBC WITH DIFF 2022-11-25 06:06:00 Dianna [facility] MRSA / MSSA SCREEN BY PCR, 2022-11-25 04:29:00 Alexandria Henley [facility] MRSA / MSSA SCREEN BY PCR, 2022-11-25 04:29:00 Alexandria Henley [facility] LACTIC ACID WHOLE BLOOD 2022-11-25 02:14:00 Alexandria Henley [facility] LACTIC ACID WHOLE BLOOD 2022-11-25 02:14:00 Alexandria Henley [facility] ACTIVATED PARTIAL THRMPLAS 2022-11-25 01:29:00 Deb Rios [facility] ACTIVATED PARTIAL THRMPLAS 2022-11-25 01:29:00 Deb Rios [facility] TROPONIN I 2022-11-24 23:23:00 Alexandria Henley [facility] LIPID PANEL ([id number])(TOTAL 2022-11-24 23:23:00 Nico Hall [facility] CHOLESTEROL, Medical Branch TRIGLYCERIDES, HDL) TROPONIN I 2022-11-24 23:23:00 Wilfredo [facility] LIPID PANEL ([id number])(TOTAL 2022-11-24 23:23:00 Rafael Nico [facility] TRIGLY[facility]ER[facility], HDL) URINALYSIS 2022-11-24 23:11:00 Wilfredo [facility] URINE CULTURE 2022-11-24 23:11:00 Alexandria Henley [facility] URINALYSIS 2022-11-24 23:11:00 Wilfredo [facility] URINE CULTURE 2022-11-24 23:11:00 Wilfredo [facility] POCT GLUCOSE (AUTOMATED) 2022-11-24 21:31:00 Alexandria Henley [facility] POCT GLUCOSE (AUTOMATED) 2022-11-24 21:31:00 Alexandria Henley [facility] TRANSTHORACIC ECHO (TTE) 2022-11-24 19:55:00 Alexandria Henley [facility] COMPLETE W/ CONTRAST Medical [facility] TRANSTHORACIC ECHO (TTE) 2022-11-24 19:55:00 Alexandria Henley [facility] COMPLETE W/ CONTRAST Medical [facility] PROTHROMBIN TIME / INR 2022-11-24 19:06:00 Deb Rios [facility] ACTIVATED PARTIAL THRMPLAS 2022-11-24 19:06:00 Deb Rios [facility] PROTHROMBIN TIME / INR 2022-11-24 19:06:00 Deb Rios [facility] ACTIVATED PARTIAL THRMPLAS 2022-11-24 19:06:00 Deb Rios [facility] HB ECG ROUTINE & RHYTHM 2022-11-24 18:57:26 Deb Rios [facility] HB ECG ROUTINE & RHYTHM 2022-11-24 18:57:26 Deb Rios [facility] TROPONIN I 2022-11-24 16:21:00 Dianna [facility] LACTIC ACID WHOLE BLOOD 2022-11-24 16:21:00 Deb Rios [facility] TROPONIN I 2022-11-24 16:21:00 [facility] WHOLE [facility]LOOD 2022-11-24 16:21:00 Deb Rios [facility] POCT GLUCOSE (AUTOMATED) 2022-11-24 13:14:00 Alexandria Henley [facility] POCT GLUCOSE (AUTOMATED) 2022-11-24 13:14:00 Alexandria Henley [facility] ELIZABETH AURIS SURVEILLANCE 2022-11-24 10:56:00 Edion, [facility] BY PCR (INFECTION CONTROL Medica [facility] PURPOSES) ELIZABETH AURIS SURVEILLANCE 2022-11-24 10:56:00 [facility] BY [facility] XR KUB 2022-11-24 10:16:02 [facility] XR KUB 2022-11-24 10:16:02 Edaarti, [facility] LACTIC ACID WHOLE BLOOD 2022-11-24 09:08:00 Nilo Camacho [facility] LACTIC ACID WHOLE BLOOD 2022-11-24 09:08:00 Nilo Camacho [facility] COVID-19 (ID NOW RAPID 2022-11-24 04:23:00 Etienne Hancock [facility] TESTING) Medical Branch LAB ONLY COVID 2022-11-24 04:23:00 Etienne Hancock [facility] COVID-19 (ID NOW RAPID 2022-11-24 04:23:00 Etienne Hancock [facility] TESTING) Medical Branch LAB ONLY COVID 2022-11-24 04:23:00 Etienne Hancock [facility] BLOOD CULTURE SCREEN 2022-11-24 04:22:00 Etienne Hancock [facility] TROPONIN I 2022-11-24 04:22:00 Etienne Hancock [facility] COMP. METABOLIC PANEL 2022-11-24 04:22:00 Etienne Hancock [facility] ([id number]) [facility] CBC WITH DIFF 2022-11-24 04:22:00 Etienne Hancock [facility] GLYCOSYLATED HEMOGLOBIN 2022-11-24 04:22:00 Alexandria Henley [facility] ([facility]) [facility] N-TERMINAL PRO-BNP 2022-11-24 04:22:00 Etienne Hancock [facility] BLOOD CULTURE SCREEN 2022-11-24 04:22:00 Etienne Hancock [facility] TROPONIN I 2022-11-24 04:22:00 Etienne Hancock [facility] COMP. METABOLIC PANEL 2022-11-24 04:22:00 Etienne Hancock [facility] ([id number]) [facility] CBC WITH DIFF 2022-11-24 04:22:00 Etienne Hancock [facility] GLYCOSYLATED HEMOGLOBIN 2022-11-24 04:22:00 Alexandria Henley [facility] ([facility]) [facility] N-TERMINAL PRO-BNP 2022-11-24 04:22:00 Etienne Hancock [facility] CT CHEST PULMONARY 2022-11-24 03:49:25 Etienne Hancock [facility] ANGIOGRAM [facility] CT CHEST PULMONARY 2022-11-24 03:49:25 Etienne Hancock [facility] ANGIOGRAM Medical Branch XR CHEST 1 VW 2022-11-24 03:33:46 Etienne Hancock [facility] XR CHEST 1 VW 2022-11-24 03:33:46 Etienne Hancock [facility] AC ABG + LACTIC ACID 2022-11-24 03:10:[address] [facility] AC ABG + LACTIC ACID 2022-11-24 03:10:00 Etinene Hancock [facility] HOSPITAL ADMISSION 2022-11-23 05:01:00 Doctor Unassigned, [facility] EMERGENCY DEPARTMENT 2022-11-23 05:01:00 Doctor Unassigned, [facility] DOCUMENTS [place] [facility] HOSPITAL ADMISSION 2022-11-23 05:01:00 Doctor Unassigned, [facility] Name [facility] CT THORAX WO CONTRAST 2022-11-22 20:09:06 Edie Elias [facility] ASSIGNMENT OF BENEFITS 2022-11-22 17:51:33 Doctor Unassigned, [facility] Name Medical [place] CONSENT/REFUSAL FOR 2022-11-22 17:47:48 Doctor Unassigned, [facility]EL 20 + LACTIC ACID 2022-11-22 17:00:00 Edie Elias [facility] XR CHEST 1 VW 2022-11-22 16:54:49 Edie Elias [facility] TROPONIN I 2022-11-22 16:54:00 Edie Elias [facility] COMP. METABOLIC PANEL 2022-11-22 16:54:00 Edie Elias [facility] ([id number]) [facility] CBC WITH DIFF 2022-11-22 16:54:00 Edie Elias [facility] PROTHROMBIN TIME / INR 2022-11-22 16:54:00 Edie Elias [facility] ACTIVATED PARTIAL THRMPLAS 2022-11-22 16:54:00 Edie Elias [facility] N-TERMINAL PRO-BNP 2022-11-22 16:54:00 Edie Elias [facility] RAD ONC COURSE SUMMARY 2022-07-13 17:53:10 Provider, Unknown [facility] POC GLUCOSE 2021-09-29 16:57:00 Deshawn Flores COVID-19 QUALITATIVE 2021-09-29 15:52:00 [facility] 2021-09-29 13:19:00 Deshawn Flores CBC WITH PLATELET AND 2021-09-29 09:29:00 Tiki Castle [facility] DIFFERENTIAL BASIC METABOLIC PANEL 2021-09-29 09:29:00 Tiki Castle [facility] ESTIMATED GFR 2021-09-29 09:29:[address] [facility] POC GLUCOSE 2021-09-29 01:18:00 Sandra, [facility] POC GLUCOSE 2021-09-28 20:07:00 Sandra, [facility] ECG PRE/POST OP 2021-09-28 19:07:55 [facility] 1 VW PORTABLE 2021-09-28 19:05:15 [facility]RODE 2021-09-28 18:28:03 France Khan [facility] PACEMAKER OR DEFIBRILLATOR POC GLUCOSE 2021-09-28 16:19:00 Sandra, [facility] ABO AND RH CONFIRMATION BY 2021-09-28 16:02:00 Dharmesh Gillette [facility] PROTOCOL POC GLUCOSE 2021-09-28 13:04:00 Sandra, [facility] TYPE AND SCREEN 2021-09-28 10:34:00 Leta [facility] BASIC METABOLIC PANEL 2021-09-28 10:25:00 Leta [facility] CBC WITH PLATELET AND 2021-09-28 10:25:00 [facility] DIFFERENTIAL PROTHROMBIN TIME WITH INR 2021-09-28 10:25:00 Dharmesh Gillette [facility] ESTIMATED GFR 2021-09-28 10:25:00 Leta [facility] POC GLUCOSE 2021-09-28 01:34:00 Sandra, [facility] POC GLUCOSE 2021-09-27 22:10:00 Sandra, [facility] POC GLUCOSE 2021-09-27 16:55:00 Sandra, [facility] POC GLUCOSE 2021-09-27 01:42:00 Sanrda, [facility] POC GLUCOSE 2021-09-26 22:25:00 Sandra, [facility] ECG 12-LEAD 2021-09-26 18:09:57 Sandra, [facility] POC GLUCOSE 2021-09-26 15:50:00 Sandra, [facility] POC GLUCOSE 2021-09-26 12:40:00 Sandra, [facility] POC GLUCOSE 2021-09-26 01:45:00 Sandra, [facility] POC GLUCOSE 2021-09-25 21:25:00 Sandra, [facility] POC GLUCOSE 2021-09-25 16:35:00 [facility] 2021-09-25 01:40:00 Laeeq, [facility] POC GLUCOSE 2021-09-24 21:30:00 Laeeq, [facility] POC GLUCOSE 2021-09-24 16:36:00 Laeeq, [facility] POC GLUCOSE 2021-09-24 12:29:00 Laeeq, [facility] POC GLUCOSE 2021-09-24 01:35:00 Laeeq, [facility] POC GLUCOSE 2021-09-23 22:13:00 Laeeq, [facility] POC GLUCOSE 2021-09-23 17:13:00 [facility]SPI[facility]GG 2021-09-23 08:41:00 Wilmer[facility] ANTIBODY TITER Rolando ConstantinZCOROSIBEL-19 SEROLOGY 2021-09-23 08:41:00 Wilmer, [facility] PATIENT SURVEILLANCE Rolando CBC WITH PLATELET AND 2021-09-23 08:41:00 Laeeq, [facility] DIFFERENTIAL COMPREHENSIVE METABOLIC 2021-09-23 08:41:00 Laeeq, [facility] PANEL MAGNESIUM LEVEL 2021-09-23 08:41:00 Laeeq, [facility] PHOSPHORUS LEVEL 2021-09-23 08:41:00 Laeeq, [facility] ESTIMATED GFR 2021-09-23 08:41:00 Laeeq, [facility] POC GLUCOSE 2021-09-23 01:51:00 Laeeq, [facility] TTE COMPLETE, WO CONTRAST, 2021-09-22 19:25:00 Laeeq, [facility] W DOPPLER ([id number]) POC GLUCOSE 2021-09-22 13:07:00 Laeeq, [facility] MRI BRAIN WO CONTRAST 2021-09-22 11:01:34 Laeeq, [facility] CBC WITH PLATELET AND 2021-09-22 10:09:00 Laeeq, [facility] DIFFERENTIAL COMPREHENSIVE METABOLIC 2021-09-22 10:09:00 Laeeq, [facility] PANEL MAGNESIUM LEVEL 2021-09-22 10:09:00 Laeeq, [facility] PHOSPHORUS LEVEL 2021-09-22 10:09:00 Laeeq, [facility] ESTIMATED GFR 2021-09-22 10:09:00 Laeeq, [facility] US CAROTID DUPLEX 2021-09-22 03:47:21 Sergio [facility] BILATERAL Sara POC GLUCOSE 2021-09-22 01:51:00 Laeeq, [facility] POC GLUCOSE 2021-09-21 22:20:00 Laeeq, [facility] LACTIC ACID LEVEL, SEPSIS 2021-09-21 19:31:00 Laeeq, [facility] - NOW AND REPEAT 2X EVERY 3 HOURS AMMONIA LEVEL 2021-09-21 19:31:00 Laeeq, [facility] VITAMIN B12 LEVEL 2021-09-21 19:31:00 Laeeq, [facility] THYROID STIMULATING 2021-09-21 19:31:00 Laeeq, [facility] HORMONE VITAMIN B1 LEVEL, WHOLE 2021-09-21 19:31:00 Laeeq, [facility] BLOOD SYPHILIS TREPONEMA SCREEN 2021-09-21 19:31:00 Laeeq, [facility] WITH RPR CONFIRMATION (REVERSE ALGORITHM) TROPONIN T 2021-09-21 19:31:00 Laeeq, [facility] VITAMIN D 25 HYDROXY LEVEL 2021-09-21 19:24:00 Laeeq, [facility] CT ANGIOGRAM NECK W WO 2021-09-21 18:32:06 Laeeq, [facility] [facility] CONTR[facility] CT ANGIOGRAM HEAD W WO 2021-09-21 18:30:49 Laeeq, [facility] CONTRAST COVID-19 QUALITATIVE 2021-09-21 17:59:00 Ramon Yi [facility] RT-PCR HEMOGLOBIN A1C 2021-09-21 17:59:00 [facility], [facility] POC GLUCOSE 2021-09-21 17:58:00 Lae, [facility] VENOUS BLOOD GAS 2021-09-21 17:54:00 Lae, [facility] LIPID PANEL 2021-09-21 17:52:00 Lae, [facility] XR CHEST 1 VW PORTABLE 2021-09-21 17:32:48 Ramon Yi [facility] [place] CRITICAL CARE 2021-09-21 [facility]:16[facility] 30-74 MIN ECG ED PRELIMINARY 2021-09-21 17:16:17 Ramon Yi [facility] INTERPRETATION CT HEAD WO CONTRAST 2021-09-21 16:37:26 Ramon Yi [facility] CBC WITH PLATELET AND 2021-09-21 15:55:00 [facility]IVE METABOLIC 2021-09-21 15:55:00 Ramon Yi [facility] PANEL MAGNESIUM LEVEL 2021-09-21 15:55:[address] [facility] LACTIC ACID LEVEL, SEPSIS 2021-09-21 15:55:00 [facility], [facility] - NOW AND REPEAT 2X EVERY 3 HOURS TROPONIN T 2021-09-21 15:55:00 [facility] B NATRIURETIC PEPTIDE 2021-09-21 15:55:00 [facility]FR 2021-09-21 15:55:00 [facility] 12-LEAD 2021-09-21 15:45:18 [facility] POC GLUCOSE 2021-09-21 15:41:[address] [facility] AUTHORIZATION FOR RELEASE 2020-06-09 05:01:00 Doctor Unassigned, [facility] TROPONIN I 2020-06-06 15:54:00 Arielle Mayorga [facility] LIPID PANEL ([id number])(TOTAL 2020-06-06 15:54:00 Arielle Mayorga [facility] CHOLESTEROL, [facility] TRIGLYCERIDES, HDL) N-TERMINAL PRO-BNP 2020-06-06 15:54:00 Arielle Mayorga [facility] COVID-19 (MOLECULAR 2020-06-06 08:46:00 Singer Hamzah [facility] TESTING [facility] NUCLEIC ACID AMPLIFICATION) COVID-19 (ID NOW RAPID 2020-06-06 04:41:00 Singer [facility] TESTING) [facility] [place] XR CHEST 1 VW 2020-06-06 03:04:04 [facility] TROPONIN I 2020-06-06 02:53:00 Singer [facility] COMP. METABOLIC PANEL 2020-06-06 02:53:00 Singer [facility] ([id number]) [facility] CBC WITH DIFF 2020-06-06 02:53:00 [facility] GLYCOSYLATED HEMOGLOBIN 2020-06-06 02:53:00 [facility] (A1C) [facility] URINALYSIS 2020-06-06 02:53[facility]00 [facility] NOTICE OF PRIVACY 2020-06-06 02:26:49 Doctor Unassigned, [facility] PRACTICES [place] [facility] [place] Plan of Care Planned Activity Planned Date Details Comments Source Future Scheduled 2022-12-29 Screening for [facility] Test 15:20:43 malignant neoplasm of colon (procedure) [code = [id number]] Future Scheduled 2022-12-29 Screening for [facility] Test 15:20:43 malignant neoplasm of colon (procedure) [code = [id number]] Future Scheduled 2022-12-29 Screening for [facility] Test 15:20:43 malignant neoplasm of colon (procedure) [code = 630724525] Future Scheduled 2022-12-29 Hepatitis C screening [facility] Test 15:20:43 (procedure) [code = 973122402] Future Scheduled 2022-12-29 Screening for [facility] Test 15:20:43 malignant neoplasm of colon (procedure) [code = 066479880] Future Scheduled 2022-12-29 Screening for [facility] Test 15:20:43 malignant neoplasm of colon (procedure) [code = 377931533] Future Scheduled 2022-12-29 SHINGLES VACCINES (1 [facility] Test 15:20:43 of 2) [code = SHINGLES VACCINES (1 of 2)] Future Scheduled 2022-12-29 RSV VACCINES > 60 YR [facility] Test 15:20:43 (1 - 1-dose 60+ series) [code = RSV VACCINES > 60 YR (1 - 1-dose 60+ series)] Future Scheduled 2022-12-29 65+ PNEUMOCOCCAL [facility] Test 15:20:43 VACCINE (1 - PCV) [code = 65+ PNEUMOCOCCAL VACCINE (1 - PCV)] Future Scheduled 2022-12-29 COVID-19 VACCINE (3 - [facility] Test 15:20:43 season) [code = COVID-19 VACCINE (3 - season)] Future Scheduled 2022-12-29 INFLUENZA VACCINE (#1) [facility] Test 15:20:43 [code = INFLUENZA VACCINE (#1)] Future Scheduled 2022-11-18 Influenza Vaccine (#1) [facility] Test 00:00:00 [code = Influenza Medical Ce nter Vaccine (#1)] Future Scheduled 2022-10-21 Screening for [facility] Test 05:09:04 malignant neoplasm of colon (procedure) [code = [id number]] Future Scheduled 2022-10-21 Screening for [facility] Test 05:09:04 malignant neoplasm of colon (procedure) [code = 078201611] Future Scheduled 2022-10-21 Scre[facility] Test 05:09:04 malignant neoplasm of colon (procedure) [code = 392466396] Future Scheduled 2022-10-21 Hepatitis C screening [facility] Test 05:09:04 (procedure) [code = 459482149] Future Scheduled 2022-10-21 Screening for [facility] Test 05:09:04 malignant neoplasm of colon (procedure) [code = 064042186] Future Scheduled 2022-10-21 [facility] Test 05:09:04 malignant neoplasm of colon (procedure) [code = 262215721] Future Scheduled 2022-10-21 SHINGLES VACCINES (1 [facility] Test 05:09:04 of 2) [code = SHINGLES VACCINES (1 of 2)] Future Scheduled 2022-10-21 65+ [facility]AL [facility] 05:09:04 VACCINE (1 - PCV) [code = 65+ PNEUMOCOCCAL VACCINE (1 - PCV)] Future Scheduled 2022-10-21 COVID-19 VACCINE (3 - [facility] Test 05:09:04 Pfizer series) [code = COVID-19 VACCINE (3 - Pfizer series)] Future Scheduled 2022-10-21 INFLUENZA VACCINE [facility] Test 05:09:04 [code = INFLUENZA VACCINE] Future Scheduled 2022-05-25 Hepatitis C screening [facility] Test 10:45:03 (procedure) [code = 500551086] Future Scheduled 2022-05-25 COLONOSCOPY SCREENING [facility] Test 10:45:03 [code = COLONOSCOPY SCREENING] Future Scheduled 2022-05-25 SHINGLES VACCINES (1 [facility] Test 10:45:03 of 2) [code = SHINGLES VACCINES (1 of 2)] Future Scheduled 2022-05-25 65+ [facility]OCOCCAL [facility] Test 10:45:03 VACCINE (1 - PCV) [code = 65+ PNEUMOCOCCAL VACCINE (1 - PCV)] Future Scheduled 2022-05-25 COVID-19 VACCINE (3 - [facility] Test 10:45:03 Booster for Pfizer series) [code = COVID-19 VACCINE (3 - Booster for Pfizer series)] Future Scheduled 2022-05-25 INFLUENZA VACCINE [facility] Test 10:45:03 [code = INFLUENZA VACCINE] Future Scheduled 2022-05-25 Hepatitis C screening [facility] Test 10:45:03 (procedure) [code = 772983850] Future Scheduled 2022-05-25 COLONOSCOPY SCREENING [facility] Test 10:45:03 [code = COLONOSCOPY SCREENING] Future Scheduled 2022-05-25 SHINGLES VACCINES (1 [facility] Test 10:45:03 of 2) [code = SHINGLES VACCINES (1 of 2)] Future Scheduled 2022-05-25 65+ [facility]OCOCCAL [facility] Test 10:45:03 VACCINE (1 - PCV) [code = 65+ PNEUMOCOCCAL VACCINE (1 - PCV)] Future Scheduled 2022-05-25 COVID-19 VACCINE (3 - [facility] Test 10:45:03 Booster for Pfizer series) [code = COVID-19 VACCINE (3 - Booster for Pfizer series)] Future Scheduled 2022-05-25 INFLUENZA VACCINE [facility] Test 10:45:03 [code = INFLUENZA VACCINE] Future Scheduled 2022-04-15 Hepatitis C screening [facility] Test 10:50:51 (procedure) [code = 289956992] Future Scheduled 2022-04-15 COLONOSCOPY SCREENING [facility] Test 10:50:51 [code = COLONOSCOPY SCREENING] Future Scheduled 2022-04-15 SHINGLES VACCINES (1 [facility] Test 10:50:51 of 2) [code = SHINGLES VACCINES (1 of 2)] Future Scheduled 2022-04-15 65+ [facility]OCOCCAL [facility] Test 10:50:51 VACCINE (1 - PCV) [code = 65+ PNEUMOCOCCAL VACCINE (1 - PCV)] Future Scheduled 2022-04-15 COVID-19 VACCINE (3 - [facility] Test 10:50:51 Booster for Pfizer series) [code = COVID-19 VACCINE (3 - Booster for Pfizer series)] Future Scheduled 2022-04-15 INFLUENZA VACCINE [facility] Test 10:50:51 [code = INFLUENZA VACCINE] [...] SCREENING] Future Scheduled 2022-03-04 Hepatitis C screening [facility] Test 08:17:18 (procedure) [code = 607288153] Future Scheduled 2022-03-04 COLONOSCOPY SCREENING Me [facility] Test 08:17:18 [code = COLONOSCOPY SCREENING] Future Scheduled 2022-03-04 SHINGLES VACCINES (1 [facility] Test 08:17:18 of 2) [code = SHINGLES VACCINES (1 of 2)] Future Scheduled 2022-03-04 65+ [facility] 08:17:18 VACCINE (1 - PCV) [code = 65+ PNEUMOCOCCAL VACCINE (1 - PCV)] Future Scheduled 2022-03-04 COVID-19 VACCINE (3 - Me [facility] Test 08:17:18 Booster for Pfizer series) [code = COVID-19 VACCINE (3 - Booster for Pfizer series)] Future Scheduled 2022-03-04 INFLUENZA VACCINE [facility] Test 08:17:18 [code = INFLUENZA VACCINE] Future Scheduled 2022-02-08 HEPATITIS B VACCINES [facility] Test 08:58:12 (1 of 3 - 3-dose series) [code = HEPATITIS B VACCINES (1 of 3 - 3-dose series)] Future Scheduled 2022-02-08 Hepatitis C screening [facility] Test 08:58:12 (procedure) [code = 981103725] Future Scheduled 2022-02-08 COLONOSCOPY SCREENING [facility] Test 08:58:12 [code = COLONOSCOPY SCREENING] Future Scheduled 2022-02-08 SHINGLES VACCINES (1 [facility] Test 08:58:12 of 2) [code = SHINGLES [...] Future Scheduled 2022-02-08 HEPATITIS B VACCINES [facility] Test 08:58:12 (1 of 3 - 3-dose series) [code = HEPATITIS B VACCINES (1 of 3 - 3-dose series)] Future Scheduled 2022-02-08 Hepatitis C screening [facility] Test 08:58:12 (procedure) [code = 765198744] Future Scheduled 2022-02-08 COLONOSCOPY SCREENING [facility] Test 08:58:12 [code = COLONOSCOPY SCREENING] Future Scheduled 2022-02-08 SHINGLES VACCINES (1 [facility] Test 08:58:12 of 2) [code = SHINGLES [...] Future Scheduled 2022-02-08 HEPATITIS B VACCINES [facility] Test 08:58:12 (1 of 3 - 3-dose series) [code = HEPATITIS B VACCINES (1 of 3 - 3-dose series)] Future Scheduled 2022-02-08 Hepatitis C screening [facility] Test 08:58:12 (procedure) [code = 536175528] Future Scheduled 2022-02-08 COLONOSCOPY SCREENING [facility] Test 08:58:12 [code = COLONOSCOPY SCREENING] Future Scheduled 2022-02-08 SHINGLES VACCINES (1 [facility] Test 08:58:12 of 2) [code = SHINGLES VACCINES (1 of 2)] Future Scheduled 2022-02-08 65+ [facility]OCOCCAL [facility] Test 08:58:12 VACCINE (1 - PCV) [code = 65+ PNEUMOCOCCAL VACCINE (1 - PCV)] Future Scheduled 2022-02-08 COVID-19 VACCINE (3 - [facility] Test 08:58:12 Booster for Pfizer series) [code = COVID-19 VACCINE (3 - Booster for Pfizer series)] Future Scheduled 2022-02-08 INFLUENZA VACCINE [facility] Test 08:58:12 [code = INFLUENZA VACCINE] Future Scheduled 2022-02-08 HEPATITIS B VACCINES [facility] Test 08:58:12 (1 of 3 - 3-dose series) [code = HEPATITIS B VACCINES (1 of 3 - 3-dose series)] Future Scheduled 2022-02-08 Hepatitis C screening [facility] Test 08:58:12 (procedure) [code = 521616285] Future Scheduled 2022-02-08 COLONOSCOPY SCREENING [facility] Test 08:58:12 [code = COLONOSCOPY SCREENING] Future Scheduled 2022-02-08 SHINGLES VACCINES (1 [facility] Test 08:58:12 of 2) [code = SHINGLES VACCINES (1 of 2)] Future Scheduled 2022-02-08 65+ [facility]OCOCCAL [facility] Test 08:58:12 VACCINE (1 - PCV) [code = 65+ PNEUMOCOCCAL VACCINE (1 - PCV)] Future Scheduled 2022-02-08 COVID-19 VACCINE (3 - [facility] Test 08:58:12 Booster for Pfizer series) [code = COVID-19 VACCINE (3 - Booster for Pfizer series)] Future Scheduled 2022-02-08 INFLUENZA VACCINE [facility] Test 08:58:12 [code = INFLUENZA VACCINE] Future Scheduled 2022-02-08 HEPATITIS B VACCINES [facility] Test 08:58:12 (1 of 3 - 3-dose series) [code = HEPATITIS B VACCINES (1 of 3 - 3-dose series)] Future Scheduled 2022-02-08 Hepatitis C screening [facility] Test 08:58:12 (procedure) [code = 456734894] Future Scheduled 2022-02-08 COLONOSCOPY SCREENING [facility] Test 08:58:12 [code = COLONOSCOPY SCREENING] Future Scheduled 2022-02-08 SHINGLES VACCINES (1 [facility] Test 08:58:12 of 2) [code = SHINGLES VACCINES (1 of 2)] Future Scheduled 2022-02-08 65+ [facility]OCOCCAL [facility] Test 08:58:12 VACCINE (1 - PCV) [code = 65+ PNEUMOCOCCAL VACCINE (1 - PCV)] Future Scheduled 2022-02-08 COVID-19 VACCINE (3 - Me [facility] Test 08:58:12 Booster for Pfizer series) [code = COVID-19 VACCINE (3 - Booster for Pfizer series)] Future Scheduled 2022-02-08 INFLUENZA VACCINE [facility] Test 08:58:12 [code = INFLUENZA VACCINE] Future Scheduled 2022-02-08 HEPATITIS B VACCINES [facility] Test 08:58:12 (1 of 3 - 3-dose series) [code = HEPATITIS B VACCINES (1 of 3 - 3-dose series)] Future Scheduled 2022-02-08 Hepatitis C screening [facility] Test 08:58:12 (procedure) [code = 788707277] Future Scheduled 2022-02-08 COLONOSCOPY SCREENING [facility] Test 08:58:12 [code = COLONOSCOPY SCREENING] Future Scheduled 2022-02-08 SHINGLES VACCINES (1 [facility] Test 08:58:12 of 2) [code = SHINGLES VACCINES (1 of 2)] Future Scheduled 2022-02-08 65+ [facility]OCCAL [facility] Test 08:58:12 VACCINE (1 - PCV) [code = 65+ PNEUMOCOCCAL VACCINE (1 - PCV)] Future Scheduled 2022-02-08 COVID-19 VACCINE (3 - Me [facility] Test 08:58:12 Booster for Pfizer series) [code = COVID-19 VACCINE (3 - Booster for Pfizer series)] Future Scheduled 2022-02-08 INFLUENZA VACCINE [facility] Test 08:58:12 [code = INFLUENZA VACCINE] Future Scheduled 2022-02-08 HEPATITIS B VACCINES [facility] Test 08:58:12 (1 of 3 - 3-dose series) [code = HEPATITIS B VACCINES (1 of 3 - 3-dose series)] Future Scheduled 2022-02-08 Hepatitis C screening [facility] Test 08:58:12 (procedure) [code = 682720672] Future Scheduled 2022-02-08 COLONOSCOPY SCREENING [facility] Test 08:58:12 [code = COLONOSCOPY SCREENING] Future Scheduled 2022-02-08 SHINGLES VACCINES (1 [facility] Test 08:58:12 of 2) [code = SHINGLES VACCINES (1 of 2)] Future Scheduled 2022-02-08 65+ [facility]OCOCCAL [facility] Test 08:58:12 VACCINE (1 - PCV) [code = 65+ PNEUMOCOCCAL VACCINE (1 - PCV)] Future Scheduled 2022-02-08 COVID-19 VACCINE (3 - [facility] Test 08:58:12 Booster for Pfizer series) [code = COVID-19 VACCINE (3 - Booster for Pfizer series)] Future Scheduled 2022-02-08 INFLUENZA VACCINE [facility] Test 08:58:12 [code = INFLUENZA VACCINE] Future Scheduled 2022-02-08 HEPATITIS B VACCINES [facility] Test 08:58:12 (1 of 3 - 3-dose series) [code = HEPATITIS B VACCINES (1 of 3 - 3-dose series)] Future Scheduled 2022-02-08 Hepatitis C screening [facility] Test 08:58:12 (procedure) [code = 287784009] Future Scheduled 2022-02-08 COLONOSCOPY SCREENING [facility] Test 08:58:12 [code = COLONOSCOPY SCREENING] Future Scheduled 2022-02-08 SHINGLES VACCINES (1 [facility] Test 08:58:12 of 2) [code = SHINGLES VACCINES (1 of 2)] Future Scheduled 2022-02-08 65+ [facility]OCOCCAL [facility] Test 08:58:12 VACCINE (1 - PCV) [code = 65+ PNEUMOCOCCAL VACCINE (1 - PCV)] Future Scheduled 2022-02-08 COVID-19 VACCINE (3 - [facility] Test 08:58:12 Booster for Pfizer series) [code = COVID-19 VACCINE (3 - Booster for Pfizer series)] Future Scheduled 2022-02-08 INFLUENZA VACCINE [facility] Test 08:58:12 [code = INFLUENZA VACCINE] Future Scheduled 2022-02-07 HEPATITIS B VACCINES [facility] Test 10:48:43 (1 of 3 - 3-dose series) [code = HEPATITIS B VACCINES (1 of 3 - 3-dose series)] Future Scheduled 2022-02-07 Hepatitis C screening [facility] Test 10:48:43 (procedure) [code = 257995933] Future Scheduled 2022-02-07 [facility]ING [facility] Test 10:48:43 [code = COLONOSCOPY SCREENING] Future Scheduled 2022-02-07 SHINGLES VACCINES (1 [facility] Test 10:48:43 of 2) [code = SHINGLES VACCINES (1 of 2)] Future Scheduled 2022-02-07 65+ P[facility]OCOCCAL [facility] Test 10:48:43 VACCINE (1 - PCV) [code = 65+ PNEUMOCOCCAL VACCINE (1 - PCV)] Future Scheduled 2022-02-07 COVID-19 VACCINE (3 - [facility] Test 10:48:43 Booster for Pfizer series) [code = COVID-19 VACCINE (3 - Booster for Pfizer series)] Future Scheduled 2022-02-07 INFLUENZA VACCINE [facility] Test 10:48:43 [code = INFLUENZA VACCINE] Future Scheduled 2022-02-02 HEPATITIS B VACCINES [facility] Test 16:39:32 (1 of 3 - 3-dose series) [code = HEPATITIS B VACCINES (1 of 3 - 3-dose series)] Future Scheduled 2022-02-02 Hepatitis C screening [facility] Test 16:39:32 (procedure) [code = 669998165] Future Scheduled 2022-02-02 COLONOSCOPY SCREENING [facility] Test 16:39:32 [code = COLONOSCOPY SCREENING] Future Scheduled 2022-02-02 SHINGLES VACCINES (1 [facility] Test 16:39:32 of 2) [code = SHINGLES VACCINES (1 of 2)] Future Scheduled 2022-02-02 65+ P[facility]OCOCCAL [facility] Test 16:39:32 VACCINE (1 - PCV) [code = 65+ PNEUMOCOCCAL VACCINE (1 - PCV)] Future Scheduled 2022-02-02 COVID-19 VACCINE (3 - [facility] Test 16:39:32 Booster for Pfizer series) [code = COVID-19 VACCINE (3 - Booster for Pfizer series)] Future Scheduled 2022-02-02 INFLUENZA VACCINE [facility] Test 16:39:32 [code = INFLUENZA VACCINE] Future Scheduled 2022-02-02 HEPATITIS B VACCINES [facility] Test 16:39:32 (1 of 3 - 3-dose series) [code = HEPATITIS B VACCINES (1 of 3 - 3-dose series)] Future Scheduled 2022-02-02 Hepatitis C screening [facility] Test 16:39:32 (procedure) [code = 266535909] Future Scheduled 2022-02-02 COLONOSCOPY SCREENING [facility] Test 16:39:32 [code = COLONOSCOPY SCREENING] Future Scheduled 2022-02-02 SHINGLES VACCINES (1 [facility] Test 16:39:32 of 2) [code = SHINGLES VACCINES (1 of 2)] Future Scheduled 2022-02-02 65+ [facility]OCOCCAL [facility] 16:39:32 VACCINE (1 - PCV) [code = 65+ PNEUMOCOCCAL VACCINE (1 - PCV)] Future Scheduled 2022-02-02 COVID-19 VACCINE (3 - [facility] Test 16:39:32 Booster for Pfizer series) [code = COVID-19 VACCINE (3 - Booster for Pfizer series)] Future Scheduled 2022-02-02 INFLUENZA VACCINE [facility] Test 16:39:32 [code = INFLUENZA VACCINE] Future Scheduled 2022-02-02 HEPATITIS B VACCINES [facility] Test 16:39:32 (1 of 3 - 3-dose series) [code = HEPATITIS B VACCINES (1 of 3 - 3-dose series)] Future Scheduled 2022-02-02 Hepatitis C screening [facility] Test 16:39:32 (procedure) [code = 712787450] Future Scheduled 2022-02-02 COLONOSCOPY SCREENING [facility] Test 16:39:32 [code = COLONOSCOPY SCREENING] Future Scheduled 2022-02-02 SHINGLES VACCINES (1 [facility] Test 16:39:32 of 2) [code = SHINGLES VACCINES (1 of 2)] Future Scheduled 2022-02-02 65+ [facility]OCOCCAL [facility] 16:39:32 VACCINE (1 - PCV) [code = 65+ PNEUMOCOCCAL VACCINE (1 - PCV)] Future Scheduled 2022-02-02 COVID-19 VACCINE (3 - [facility] Test 16:39:32 Booster for Pfizer series) [code = COVID-19 VACCINE (3 - Booster for Pfizer series)] Future Scheduled 2022-02-02 INFLUENZA VACCINE [facility] Test 16:39:32 [code = INFLUENZA VACCINE] Future Scheduled 2022-02-02 HEPATITIS B VACCINES [facility] Test 16:39:32 (1 of 3 - 3-dose series) [code = HEPATITIS B VACCINES (1 of 3 - 3-dose series)] Future Scheduled 2022-02-02 Hepatitis C screening [facility] Test 16:39:32 (procedure) [code = 389961787] Future Scheduled 2022-02-02 COLONOSCOPY SCREENING [facility] Test 16:39:32 [code = COLONOSCOPY SCREENING] Future Scheduled 2022-02-02 SHINGLES VACCINES (1 [facility] Test 16:39:32 of 2) [code = SHINGLES VACCINES (1 of 2)] Future Scheduled 2022-02-02 65+ [facility] 16:39:32 VACCINE (1 - PCV) [code = 65+ PNEUMOCOCCAL VACCINE (1 - PCV)] Future Scheduled 2022-02-02 COVID-19 VACCINE (3 - [facility] Test 16:39:32 Booster for Pfizer series) [code = COVID-19 VACCINE (3 - Booster for Pfizer series)] Future Scheduled 2022-02-02 INFLUENZA VACCINE [facility] Test 16:39:32 [code = INFLUENZA VACCINE] Future Scheduled 2022-01-29 HEPATITIS B VACCINES [facility] Test 09:22:42 (1 of 3 - 3-dose series) [code = HEPATITIS B VACCINES (1 of 3 - 3-dose series)] Future Scheduled 2022-01-29 Hepatitis C screening [facility] Test 09:22:42 (procedure) [code = [id number]] Future Scheduled 2022-01-29 COLONOSCOPY SCREENING [facility] Test 09:22:42 [code = COLONOSCOPY SCREENING] Future Scheduled 2022-01-29 SHINGLES VACCINES (1 [facility] Test 09:22:42 of 2) [code = SHINGLES VACCINES (1 of 2)] Future Scheduled 2022-01-29 65+ PNEUMOCOCCAL [facility] Test 09:22:42 VACCINE (1 - PCV) [code = 65+ PNEUMOCOCCAL VACCINE (1 - PCV)] Future Scheduled 2022-01-29 COVID-19 VACCINE (3 - [facility] Test 09:22:42 Booster for Pfizer series) [code = COVID-19 VACCINE (3 - Booster for Pfizer series)] Future Scheduled 2022-01-29 INFLUENZA VACCINE [facility] Test 09:22:42 [code = INFLUENZA VACCINE] Future Scheduled 2021-12-24 HEPATITIS B VACCINES [facility] Test 17:00:45 (1 of 3 - 3-dose series) [code = HEPATITIS B VACCINES (1 of 3 - 3-dose series)] Future Scheduled 2021-12-24 [facility] [facility] Test 17:00:45 (procedure) [code = 373527138] Future Scheduled 2021-12-24 COLONOSCOPY SCREENING [facility] Test 17:00:45 [code = COLONOSCOPY SCREENING] Future Scheduled 2021-12-24 SHINGLES VACCINES (1 Met [facility] Test 17:00:45 of 2) [code = SHINGLES VACCINES (1 of 2)] Future Scheduled 2021-12-24 65+ [facility] 17:00:45 VACCINE (1 - PCV) [code = 65+ PNEUMOCOCCAL VACCINE (1 - PCV)] Future Scheduled 2021-12-24 COVID-19 VACCINE (3 - [facility] Test 17:00:45 Booster for Pfizer series) [code = COVID-19 VACCINE (3 - Booster for Pfizer series)] Future Scheduled 2021-12-24 INFLUENZA VACCINE [facility] Test 17:00:45 [code = INFLUENZA VACCINE] [facility]20 (procedure) [code = 125006101] Future Scheduled 2021-04-21 [facility]20 [code = COLONOSCOPY SCREENING] Future Scheduled 2021-04-21 SHINGLES VACCINES (#1) [facility] 00:17:20 [code = SHINGLES VACCINES [...] PPSV23)] Future Scheduled 2021-04-21 [facility] 00[facility]17:20 (procedure) [code = 092351333] Future Scheduled 2021-04-21 [facility] 00:17:20 [code = COLONOSCOPY SCREENING] Future Scheduled 2021-04-21 [facility]:17:20 [code = SHINGLES VACCINES [...] 00:00:00 (1 of 1 - Medical Center [id number] PCV13) [code = PNEUMOCOCCAL 65+ YRS (1 of 1 - [id number]_Fvpetqr PCV13)] Future Scheduled 2014 PNEUMOCOCCAL 65+ YRS [...] 00:00:00 (1 of 1 - Medical Center [id number]_[id number] PCV13) [code = PNEUMOCOCCAL 65+ YRS (1 of 1 - [id number]_Xwtbtyv PCV13)] Future Scheduled 2014 PNEUMOCOCCAL 65+ YRS [...] - Tdap)] Future Scheduled 1968 DTAP/TDAP/TD [facility]ACCINES [facility]00 (1 - Tdap) [code = Medical C enter DTAP/TDAP/TD VACCINES (1 - Tdap)] Future Scheduled 1968 DTAP/TDAP/TD [facility]ACCINES [facility] 00[facility]00 (1 - [...] [facility] Center colon (procedure) [code = 035563031] Future Scheduled [address] [facility] colon (procedure) [code = 953047854] Future Scheduled [address] [facility] 00:00:00 [facility] colon (procedure) [code = 433230213] Future Scheduled [address] [facility] 00:00:00 [facility] ne[facility] colon (procedure) [code = 324615904] Future Scheduled 1949 Sigmoidoscopy [facility] Future Scheduled [address] [facility] 00:00:00 [facility] ne[facility] colon (procedure) [code = 669584484] Future Scheduled [address] [facility] 00:00:00 (combo) [code = CT Medical C enter Colonography (combo)] Future Scheduled [address] [facility] 00:00:00 [facility] colon (procedure) [code = 209054366] Future Scheduled [address] [facility] 00:00:00 [facility] colon (procedure) [code = 357364860] Future Scheduled [address] [facility] 00:00:00 [facility] colon (procedure) [code = 029485793] Future Scheduled [address] [facility] 00:00:00 malignant ne[facility] colon (procedure) [code = 852578413] Future Scheduled 1949 S[facility]oidoscopy [facility] Future Scheduled [address] [facility] 00:00:00 (combo) [code = CT Medical C enter Colonography (combo)] Future Scheduled [address] [facility] 00:00:00 malignant ne[facility] Center colon (procedure) [code = 278599891] Future Scheduled [address] [facility] 00:00:00 [facility] ne[facility] colon (procedure) [code = 048388144] Future Scheduled [address] [facility] 00:00:00 malignant ne[facility] of [facility] colon (procedure) [code = 297532905] Future Scheduled [address] [facility] 00:00:00 malignant neoplasm of [facility] colon (procedure) [code = 452305086] Future Scheduled 1949 S[facility]oidoscopy [facility] Future Scheduled [address] [facility] 00:00:00 (combo) [code = CT Medical C enter Colonography (combo)] Future Scheduled [address] [facility] 00:00:00 malignant ne[facility] colon (procedure) [code = 949491995] Future Scheduled [address] [facility] 00:00:00 malignant ne[facility] colon (procedure) [code = 775067338] Future Scheduled [address] [facility] 00:00:00 malignant neoplasm of [facility] colon (procedure) [code = 229815783] Future Scheduled [address] [facility] 00:00:00 malignant neoplasm of [facility] colon (procedure) [code = 639702854] Future Scheduled 1949 S[facility]oidoscopy [facility] Future Scheduled [address] [facility] 00:00:00 (combo) [code = CT Medical C enter Colonography (combo)] Future Scheduled [address] [facility] 00:00:00 malignant ne[facility] colon (procedure) [code = 269836731] Future Scheduled [address] [facility] 00:00:00 malignant neoplasm of [facility] colon (procedure) [code = 482787273] Future Scheduled [address] [facility] 00:00:00 malignant neoplasm of [facility] colon (procedure) [code = 459588032] Future Scheduled [address] [facility] 00:00:00 malignant neoplasm [facility] colon (procedure) [code = 427823403] Future Scheduled 1949 S[facility]oidoscopy [facility] Future Scheduled [address] [facility] 00:00:00 (combo) [code = CT Medical C enter Colonography (combo)] Future Scheduled [address] [facility] 00:00:00 malignant neoplasm [facility] colon (procedure) [code = 032282103] Future Scheduled [address] [facility] 00:00:00 malignant neoplasm [facility] colon (procedure) [code = 815920142] Future Scheduled [address] [facility] 00:00:00 malignant ne[facility] colon (procedure) [code = 566840274] Future Scheduled [address] [facility] 00:00:00 malignant neoplasm of [facility] colon (procedure) [code = 163775911] Future Scheduled 1949 S[facility]oidoscopy [facility] Future Scheduled [address] [facility] 00:00:00 (combo) [code = CT Medical C enter Colonography (combo)] Future Scheduled [address] [facility] 00:00:00 malignant neoplasm of [facility] colon (procedure) [code = 905684204] Future Scheduled [address] [facility] 00:00:00 malignant neoplasm of [facility] colon (procedure) [code = 566124296] Future Scheduled [address] [facility] 00:00:00 malignant ne[facility] of [facility] colon (procedure) [code = 570131613] Future Scheduled [address] [facility] 00:00:00 malignant ne[facility] of [facility] colon (procedure) [code = 319081379] Future Scheduled 1949 S[facility]oidoscopy [facility] Future Scheduled [address] [facility] 00:00:00 (combo) [code = CT Medical C enter Colonography (combo)] Future Scheduled [address] [facility] 00:00:00 malignant ne[facility] colon (procedure) [code = 205122045] Future Scheduled [address] [facility] 00:00:00 malignant neoplasm [facility] colon (procedure) [code = 602694539] Future Scheduled [address] [facility] 00:00:00 malignant neoplasm of [facility] colon (procedure) [code = 287036615] Future Scheduled [address] [facility] 00:00:00 malignant neoplasm of [facility] colon (procedure) [code = 740454587] Future Scheduled 1949 Sigmoidoscopy [facility] Future Scheduled [address] [facility] 00:00:00 (combo) [code = CT Medical C enter Colonography (combo)] Future Scheduled [address] [facility] 00:00:00 malignant neoplasm [facility] colon (procedure) [code = 526036310] Future Scheduled [address] [facility] 00:00:00 malignant neoplasm of [facility] colon (procedure) [code = 323512131] Future Scheduled [address] [facility] 00:00:00 malignant neoplasm of [facility] Center colon (procedure) [code = 645995867] Future Scheduled [address] [facility] 00:00:00 malignant neoplasm of [facility] colon (procedure) [code = 327211450] Future Scheduled 1949 Sigmoidoscopy [facility] Future Scheduled [address] [facility] 00:00:00 malignant neoplasm [facility] colon (procedure) [code = 372087549] Future Scheduled [address] [facility] 00:00:00 (combo) [code = CT Medical C enter Colonography (combo)] Future Scheduled [address] [facility] 00:00:00 malignant neoplasm of [facility] colon (procedure) [code = 792699504] Future Scheduled [address] [facility] 00:00:00 malignant neoplasm of [facility] colon (procedure) [code = 949087840] Future Scheduled [address] [facility] 00:00:00 malignant neoplasm of [facility] colon (procedure) [code = 872726631] Future Scheduled [address] [facility] 00:00:00 malignant neoplasm of [facility] colon (procedure) [code = 391197692] Future Scheduled 1949 Sigmoidoscopy [facility] Future Scheduled [address] [facility] 00:00:00 (combo) [code = CT Medical C enter Colonography (combo)] Future Scheduled [address] [facility] 00:00:00 malignant ne[facility] of [facility] colon (procedure) [code = 661338152] Future Scheduled [address] [facility] 00:00:00 malignant neoplasm of [facility] colon (procedure) [code = 359144870] Future Scheduled [address] [facility] 00:00:00 malignant neoplasm of [facility] colon (procedure) [code = 421043893] Future Scheduled [address] [facility] 00:00:00 malignant neoplasm of [facility] colon (procedure) [code = 673777382] Future Scheduled 1949 Sigmoidoscopy [facility] Future Scheduled [address] [facility] 00:00:00 (combo) [code = CT Medical C enter Colonography (combo)] Future Scheduled [address] [facility] 00:00:00 malignant ne[facility] colon (procedure) [code = 981964910] Future Scheduled [address] [facility] 00:00:00 malignant [facility] colon (procedure) [code = 270305197] Future Scheduled [address] [facility] 00:00:00 malignant neoplasm of [facility] colon (procedure) [code = 938235659] Future Scheduled [address] [facility] 00:00:00 malignant neoplasm of [facility] colon (procedure) [code = 192941885] Future Scheduled 1949 Sigmoidoscopy [facility] Future Scheduled [address] [facility] 00:00:00 (combo) [code = CT Medical C enter Colonography (combo)] Future Scheduled [address] [facility] 00:00:00 malignant ne[facility] of [facility] colon (procedure) [code = 646040301] Future Scheduled [address] [facility] 00:00:00 malignant neoplasm of [facility] colon (procedure) [code = 775270723] Future Scheduled [address] [facility] 00:00:00 malignant neoplasm of [facility] colon (procedure) [code = 501548602] Future Scheduled [address] [facility] 00:00:00 malignant neoplasm of [facility] colon (procedure) [code = 494433364] Future Scheduled 1949 Sigmoidoscopy [facility] Future Scheduled [address] [facility] 00:00:00 (combo) [code = CT Medical C enter Colonography (combo)] Future Scheduled [address] [facility] 00:00:00 malignant ne[facility] of [facility] Center colon (procedure) [code = 211560395] Future Scheduled [address] [facility] 00:00:00 malignant neoplasm of [facility] colon (procedure) [code = 392006552] Future Scheduled [address] [facility] 00:00:00 malignant neoplasm of [facility] colon (procedure) [code = 591576698] Future Scheduled [address] [facility] 00:00:00 malignant neoplasm of [facility] colon (procedure) [code = 414357426] Future Scheduled 1949 Sigmoidoscopy [facility] Future Scheduled [address] [facility] 00:00:00 (combo) [code = CT Medical C enter Colonography (combo)] Future Scheduled [address] [facility] 00:00:00 malignant ne[facility] of [facility] colon (procedure) [code = 500695627] Future Scheduled [address] [facility] 00:00:00 malignant neoplasm of [facility] colon (procedure) [code = 910978144] Future Scheduled [address] [facility] 00:00:00 malignant [facility] colon (procedure) [code = 836694678] Future Scheduled [address] [facility] 00:00:00 malignant ne[facility] colon (procedure) [code = 420751481] Future Scheduled 1949 S[facility]oidoscopy [facility] Future Scheduled [address] [facility] 00:00:00 (combo) [code = CT Medical C enter Colonography (combo)] Future Scheduled [address] [facility] 00:00:00 malignant ne[facility] colon (procedure) [code = 527769730] Future Scheduled [address] [facility] 00:00:00 malignant neoplasm of [facility] colon (procedure) [code = 038020967] Future Scheduled [address] [facility] 00:00:00 malignant neoplasm of [facility] colon (procedure) [code = 560910639] Future Scheduled [address] [facility] 00:00:00 malignant neoplasm of [facility] colon (procedure) [code = 848153172] Future Scheduled 1949 Sigmoidoscopy [facility] Future Scheduled [address] [facility] 00:00:00 (combo) [code = CT Medical C enter Colonography (combo)] Future Scheduled [address] [facility] 00:00:00 malignant ne[facility] of [facility] colon (procedure) [code = 983870555] Future Scheduled [address] [facility] 00:00:00 malignant neoplasm of [facility] colon (procedure) [code = 902430805] Future Scheduled [address] [facility] 00:00:00 malignant neoplasm of [facility] colon (procedure) [code = 362521435] Future Scheduled [address] [facility] 00:00:00 malignant neoplasm of [facility] colon (procedure) [code = 207997765] Future Scheduled 1949 Sigmoidoscopy [facility]code [facility] 00:[facility] Future Scheduled [address] [facility] 00:00:00 (combo) [code = CT Medical C enter Colonography (combo)] Future Scheduled [address] [facility] 00:00:00 malignant neoplasm of [facility] Center colon (procedure) [code = 271019760] Future Scheduled [address] [facility] 00:00:00 malignant neoplasm of [facility] Center colon (procedure) [code = 607070885] Future Scheduled [address] [facility] 00:00:00 malignant neoplasm of [facility] Center colon (procedure) [code = 943217676] Future Scheduled [address] [facility] 00:00:00 malignant neoplasm of [facility] Center colon (procedure) [code = 116490164] Future Scheduled 1949 Sigmoidoscopy [facility]code [facility] 00:[facility] Future Scheduled [address] [facility] 00:00:00 (combo) [code = CT Medical C enter Colonography (combo)] Future Scheduled [address] [facility] 00:00:00 malignant neoplasm of [facility] Center colon (procedure) [code = 541030520] Future Scheduled [address] [facility] 00:00:00 malignant neoplasm of [facility] Center colon (procedure) [code = 835664110] Future Scheduled [address] [facility] 00:00:00 malignant neoplasm of [facility] Center colon (procedure) [code = 674057154] Future Scheduled [address] [facility] 00:00:00 malignant neoplasm of [facility] Center colon (procedure) [code = 797458750] Future Scheduled 1949 Sigmoidoscopy [facility] Medical Cente r Encounters Start End Encounter Admission Attending Care Care Encounter Source Date/Time Date/Time Type Type Clinicians Facility Department ID 2022-11-24 [facility] [id number] [facility] 00:[facility]:00 Encounter [facility] 2022-09-22 Outpatient [facility] [id number] [place] 21:12:19 [id number] [facility] 2022-02-17 Outpatient [facility] [id number] [place] 16:19:33 [id number] [facility] 2022-02-14 Outpatient [facility] [id number] [place] 11:11:26 [id number] [facility] 2020-12-23 Outpatient JEFFERSON BRAGG [facility] Surgery [id number] [facility] 02:00:22 2022-11-30 2022-11-30 Transition YADIEL Dias 1.2.840.114 [id number] Univers 00:00:00 00:00:00 of Care Erika MOREY 350.1.13.10 it [place] [id number] [facility] [address] 2022-11-23 2022-11-29 Inpatient X SANGITA [facility] [id number] Univers 21:17:00 21:48:00 JEFFREY ity of [facility] 2022-11-23 2022-11-29 [facility] Etienne Hancock 1.2.840 .114 [id number] Univers 21:17:00 21:48:00 Encounter FelipagucciNilo 350.1.13.10 ity [facility] 4.2.7.2.686 [place] Zeeshan Quesadalshan [phone] [facility] [address] 2022-11-25 2022-11-25 Surgery LEVI Ramirez 1.2.648.190 [id number] Univers 12:55:00 13:55:00 Afaq JUDITH 350.1.13.10 [facility] 4.2.7.2.686 Roger as [id number] [facility] [address] 2022-11-22 2022-11-22 Emergency X [facility] ERT [id number] Univers 11:31:00 19:26:00 EDIE leung [facility] 2022-11-22 2022-11-22 [facility] 1.2.584.004 [id number] Univers 11:31:00 19:26:00 Edie TORRES 350.1.13.10 i ty of [place] [phone] [facility] [address] 2022-07-13 2022-07-13 Orders Provider, 1.2.840.1 [id number] Methodi 00:00:00 00:00:00 Only Unknown 29206.1.[address] 3.430.2.7 Hospit a .3.374506 l .8 2022-07-13 2022-07-13 Orders Provider, 1.2.840.1 [id number] [id number] Methodi 00:00:00 00:00:00 Only Unknown 23704.1.[address] 3.430.2.7 Hospit a .3.553199 l .8 2022-02-02 2022-02-02 Outpatient PATE, [facility] [id number] [place] 22:15:00 22:15:00 [facility] 2022-01-26 2022-01-26 Transcribe Bindal, 1.2.840.1 [id number] Methodi 00:00:00 00:00:00 Orders Arron Tyson 29104.1.[address] 3.430.2.7 Hospit a .3.254140 l .8 2022-01-26 2022-01-26 Transcribe Bindal, 1.2.840.1 [id number] 677 [id number] Methodi 00:00:00 00:00:00 Orders Arron Carrington. 57362.1.[address] 3.430.2.7 Hospit a .3.959094 l .8 2022-01-17 2022-01-17 Transcribe Bindal, 1.2.840.1 [id number] Methodi 00:00:00 00:00:00 Orders Arron Carrington. 18704.1.[address] 3.430.2.7 Hospit a .3.312783 l .8 2022-01-17 2022-01-17 Transcribe Bindal, 1.2.840.1 [id number] [id number] Methodi 00:00:00 00:00:00 Orders Arron Carrington. 64995.1.[address] 3.430.2.7 Hospit a .3.668617 l .8 2022-01-04 2022-01-04 Outpatient BRENDA BLANCHARD [employer] [id number] [place] 13:14:00 13:14:00 XENIA [id number] [facility] 2021-10-12 2021-10-12 Clinical 1.2.840.1 [id number] Methodi 14:00:00 14:29:[address] 3.430.2.7 Hospit a .3.317683 l .8 2021-10-12 2021-10-12 Travel 1.2.840.1 1.2.934.859 5539 [id number] Methodi 00:00:00 00:00:[address] 3.430.2.7 0.2.7.3.698 Ho spita .3.600454 084.8 l .8 2021-10-04 2021-10-04 Telephone Khan, 1.2.840.1 [id number] [id number] Methodi 00:00:00 00:00:[address] 3.430.2.7 Hospit a .3.155079 l .8 2021-09-21 2021-09-29 [facility] Ramon Yi 1.2.840.1 [id number] Methodi 10:38:00 18:12:00 Encounter Laemaru, Shree Sidney 08362.1.[address] Sandra, Iti 3.430.2.7 Hos efren .3.105642 l .8 2021-09-28 2021-09-28 Surgery [facility], 1.2.840.1 [id number] 9359 Methodi 12:00:00 13:35:[address] 3.430.2.7 Hospit a .3.550578 l .8 2021-09-22 2021-09-22 Documentat Provider, 1.2.840.1 [id number] Methodi 00:00:00 00:00:00 ion Unknown 22421.1.[address] 3.430.2.7 Hospit a .3.070088 l .8 2021-09-22 2021-09-22 Orders Radhames, 1.2.840.1 [id number] 9910 Methodi 00:00:00 00:00:00 Only Maite 21900.1.[address] 3.430.2.7 Hospit a .3.818415 l .8 2021-09-21 2021-09-21 Travel 1.2.840.1 1.2.363.488 6724 [id number] Methodi 00:00:00 00:00:[address] 3.430.2.7 0.2.7.3.698 Ho spita .3.497328 084.8 l .8 2021-03-03 2021-03-03 Refill Yaltho, 1.2.840.1 [id number] 1117 Methodi 00:00:00 00:00:[address] 3.430.2.7 Hospit a .3.921038 l .8 2020-07-20 2020-07-20 Refill Yaltho, 1.2.840.1 [id number] 3398 Methodi 00:00:00 00:00:[address] 3.430.2.7 Hospit a .3.191590 l .8 2020-06-11 2020-06-11 Transition Yadiel Patricia 1.2.840.114 [id number] Univers 00:00:00 00:00:00 of Care Teagan Franklin 350.1.13.10 [place] [id number] [facility] [address] 2020-06-09 2020-06-09 Orders Doctor JEFFERSON 1.2.840.114 [id number] Univers 00:00:00 00:00:00 Only Unassigned, JUDITH 350.1.13.10 ity of [facility] 4.2.7.2.686 Roger as [id number] [facility] [address] 2020-06-08 2020-06-08 Transition Yadiel Patricia 1.2.840.114 [id number] Univers 00:00:00 00:00:00 of Care Teagan Franklin 350.1.13.10 [place] [phone] [facility] [address] 2020-06-05 2020-06-06 Outpatient X EDIONWE, [facility] ANIL [id number] Univers 21:29:00 14:10:00 STONE leung [facility] 2020-06-05 2020-06-06 Emergency Hamzah Barr [facility] 1.2.840. 114 [id number] Univers 21:29:00 14:10:00 Stone Adame 350.1.13.10 [facility] 4.2.7.2.686 [facility] [id number] [place] [address] [address] 2020-05-17 2020-05-17 Clinical Garymarilu, 1.2.840.1 [id number] Methodi 16:49:22 16:52:11 Support Demetrio 79821.1.[address] P. 3.430.2.7 Hospit a .3.915262 l .8 2020-04-30 2020-04-30 Telemedici Desi, 1.2.840.1 [id number] [id number] Methodi 09:41:31 09:51:08 ne Gilles Carrasquillo 92175.1.[address] 3.430.2.7 Hospit a .3.176240 l .8 2020-04-26 2020-04-26 Clinical 1.2.840.1 [id number] 55463 Methodi 16:28:39 16:43:[address] 3.430.2.7 Hospit a .3.706228 l .8 2020-04-26 2020-04-26 Travel 1.2.840.1 1.2.818.612 3208 [id number] Methodi 00:00:00 00:00:[address] 3.430.2.7 0.2.7.3.698 Ho spita .3.200762 084.8 l .8 2020-03-03 2020-03-03 Outpatient JEFFERSON BRAGG [facility] 2100 [id number] [place] 00:00:00 00:00:[address] 2020-02-26 2020-02-26 Outpatient STEFANO [facility] [id number] [facility] [place] 00:00:00 00:00:00 SAMREEN [address] 2020-02-19 2020-02-19 Outpatient GISELA, [facility] [id number] [place] 00:00:00 00:00:00 JOCELYN [address] 2020-02-19 2020-02-19 Outpatient GISELA, [facility] [id number] [place] 00:00:00 00:00:00 JOCELYN [address] 2020-02-19 2020-02-19 Outpatient GISELA, [facility] [id number] [place] 00:00:00 00:00:00 JOCELYN [address] 2019-12-25 2019-12-25 Outpatient YALTHO, [facility] [id number] 535 [place] 00:00:00 00:00:00 GILLES [address] 2019-12-17 2019-12-17 Outpatient JEFFERSON BRAGG [facility] 2100 [id number] [place] 00:00:00 00:00:[address] 2019-11-19 2019-11-19 Outpatient JEFFERSON BRAGG [facility] 2100 [id number] [place] 00:00:00 00:00:[address] 2019-10-30 2019-10-30 Outpatient EL [facility] [id number] [facility] 00:00:00 00:00:00 2019-10-03 2019-10-03 Outpatient JEFFERSON BRAGG [facility] 2100 [id number] [place] 00:00:00 00:00:[address] 2019-10-03 2019-10-03 Outpatient JEFFERSON BRAGG [facility] 2100 [id number] [place] 00:00:00 00:00:[address] 2019-10-03 2019-10-03 Outpatient EJFFERSON BRAGG [facility] 2100 [id number] [place] 00:00:00 00:00:[address] 2019-08-22 2019-08-22 Outpatient SHREBECCA [facility] [id number] [place] 00:00:00 00:00:00 SAMREEN [address] 2019-08-22 2019-08-22 Outpatient YAADRIAN [facility] [id number] [place] 00:00:00 00:00:00 GILLES [address] 2019-08-16 2019-08-16 Outpatient GISELA, [facility] [id number] 112 [place] 00:00:00 00:00:00 JOCELYN [address] 2019-08-16 2019-08-16 Outpatient GISELA, [facility] [id number] 112 [place] 00:00:00 00:00:00 JOCELYN [address] 2019-07-19 2019-07-19 Outpatient YALTHO, [facility] [id number] 246 [place] 00:00:00 00:00:00 GILLES [address] 2019-05-03 2019-05-03 Outpatient YALTHO, [facility] [id number] 393 [place] 00:00:00 00:00:00 GILLES [address] 2019-05-03 2019-05-03 Outpatient YALTHO, [facility] [id number] 393 [place] 00:00:00 00:00:00 GILLES [address] 2019-03-09 2019-03-09 Outpatient GISELA, [facility] [id number] 924 [place] 00:00:00 00:00:00 JOCELYN [address] 2019-02-25 2019-02-25 Outpatient GISELA, [facility] [id number] 924 [place] 00:00:00 00:00:00 JOCELYN [address] 2019-02-25 2019-02-25 Outpatient GISELA, [facility] [id number] 924 [place] 00:00:00 00:00:00 JOCELYN [address] 2019-01-17 2019-01-17 Outpatient SHKEDY, [facility] [id number] 909 [place] 00:00:00 00:00:00 SAMREEN [address] 2018-12-18 2018-12-18 Outpatient SHKEDY, [facility] [id number] 925 [place] 00:00:00 00:00:00 SAMREEN [address] 2018-12-06 2018-12-06 Outpatient SHKEDY, [facility] [id number] 826 [place] 00:00:00 00:00:00 SAMREEN [address] 2018-12-04 2018-12-04 Outpatient SHKEDY, [facility] [id number] 799 [place] 00:00:00 00:00:00 SAMREEN [address] 2018-11-30 2018-11-30 Outpatient SHKEDY, [facility] [id number] 381 [place] 00:00:00 00:00:00 SAMREEN [address] 2018-11-28 2018-11-28 Outpatient STEFANO, [facility] [id number] 377 [place] 00:00:00 00:00:00 SAMREEN [address] 2018-11-26 2018-11-27 Outpatient STEFANO [facility] [id number] 460 [place] 00:00:00 00:00:00 SAMREEN [address] 2018-11-26 2018-11-26 Outpatient STEFANO [facility] [id number] 375 [place] 00:00:00 00:00:00 SAMREEN [address] Results Test Description Test Time Test Comments Results Result Comments Source POCT GLUCOSE (AUTOMATED) 2022-11-29 21:33:15 Test Item Value Reference Range Interpretation Comme nts POCT GLU (test code = 4298363119) 114 mg/dL 70-110 H Lab Interpretation (test code = 97932-0) [facility] 16:53:54 Test Item Value Reference Range Interpretation Comments POCT GLU (test code = 9785607881) 131 mg/dL 70-110 H Lab Interpretation (test code = Abnormal 95362-7) [facility] [id number] 05:01:32 Test Item Value Reference Range Interpretation Comments Blood Culture-Aerobic No organisms No growth Previo us (test code = 94497-7) isolated prelim inary verified result was Culture In Progress on 11/24/2022 at 030 1 CDTPrevious preliminary verified result was No growth a t 24 hours on 11/25/2022 at 000 1 CDTPrevious preliminary verified result was No growth a t 48 hours on 11/26/2022 at 000 1 CDTPrevious preliminary verified result was No growth a t 72 hours on 11/27/2022 at 00 01 CDT Blood No organisms No growth Previous Culture-Anaerobic isolated preliminar y (test code = 66456-9) verifi ed result was Culture In Progress on 11/24/2022 at 030 1 CDTPrevious preliminary verified result was No growth a t 24 hours on 11/25/2022 at 000 1 CDTPrevious preliminary verified result was No growth a t 48 hours on 11/26/2022 at 000 1 CDTPrevious preliminary verified result was No growth a t 72 hours on 11/27/2022 at 00 01 CDT Lab Interpretation Normal (test code = 89890-4) [facility] [id number] 05:01:32 Test Item Value Reference Range Interpretation Comments Blood Culture-Aerobic No organisms No growth Previo us (test code = 16853-3) isolated prelim inary verified result was Culture In Progress on 11/24/2022 at 030 1 CDTPrevious preliminary verified result was No growth a t 24 hours on 11/25/2022 at 000 1 CDTPrevious preliminary verified result was No growth a t 48 hours on 11/26/2022 at 000 1 CDTPrevious preliminary verified result was No growth a t 72 hours on 11/27/2022 at 00 01 CDT Blood No organisms No growth Previous Culture-Anaerobic isolated preliminar y (test code = 06463-6) verifi ed result was Culture In Progress on 11/24/2022 at 030 1 CDTPrevious preliminary verified result was No growth a t 24 hours on 11/25/2022 at 000 1 CDTPrevious preliminary verified result was No growth a t 48 hours on 11/26/2022 at 000 1 CDTPrevious preliminary verified result was No growth a t 72 hours on 11/27/2022 at 00 01 CDT Lab Interpretation Normal (test code = 66206-2) [facility] GLUCOSE (AUTOMATED)2022-11-29 01:42:25 Test Item Value Reference Range Interpretation Comments POCT GLU (test code = 5179424276) 143 mg/dL 70-110 H Lab Interpretation (test code = Abnormal 83090-8) [facility] GLUCOSE (AUTOMATED)2022-11-28 22:26:29 Test Item Value Reference Range Interpretation Comments POCT GLU (test code = 9211729854) 116 mg/dL 70-110 H Lab Interpretation (test code = Abnormal 77637-7) [facility] GLUCOSE (AUTOMATED)2022-11-28 16:40:57 Test Item Value Reference Range Interpretation Comments POCT GLU (test code = 5924446823) 107 mg/dL 70-110 Lab Interpretation (test code = Normal 86008-3) [facility] GLUCOSE (AUTOMATED)2022-11-28 16:40:57 Test Item Value Reference Range Interpretation Comments POCT GLU (test code = 2387710880) 107 mg/dL 70-110 Lab Interpretation (test code = Normal 04520-0) [facility] GLUCOSE (AUTOMATED)2022-11-28 13:55:26 Test Item Value Reference Range Interpretation Comments POCT GLU (test code = 5854202740) 97 mg/dL 70-110 Lab Interpretation (test code = Normal 58075-1) [facility] GLUCOSE (AUTOMATED)2022-11-28 13:55:26 Test Item Value Reference Range Interpretation Comments POCT GLU (test code = 6868291534) 97 mg/dL 70-110 Lab Interpretation (test code = Normal 29335-7) [facility] METABOLIC PANEL (NA, K, CL, CO2, GLUCOSE, BUN, CREATININE, CA)2022-11-28 10:43:41 Test Item Value Reference Range Interpretation Comments NA (test code = 133 mmol/L 135-145 L 9585548196) K (test code = 4.3 mmol/L 3.5-5.0 7443537643) CL (test code = 104 mmol/L 98-108 3849442715) CO2 TOTAL (test code = 24 mmol/L 23-31 1230207277) AGAP (test code = 5 2-16 9832651025) BUN (test code = 3 mg/dL 7-23 L 1996181904) GLUCOSE (test code = 108 mg/dL 70-110 0842768802) CREATININE (test code = 0.40 mg/dL 0.60-1.25 L 1489322096) CALCIUM (test code = 8.5 mg/dL 8.6-10.6 L 2844841663) eGFR (test code = 210.9 mL/min/1.73m2 4736960883) FRANK (test code = FRANK) Association of [...] tests). Lab Interpretation Abnormal (test code = 84962-9) [facility] METABOLIC PANEL (NA, K, CL, CO2, GLUCOSE, BUN, CREATININE, CA)2022-11-28 10:43:41 Test Item Value Reference Range Interpretation Comments NA (test code = 133 mmol/L 135-145 L 7949735410) K (test code = 4.3 mmol/L 3.5-5.0 3465991177) CL (test code = 104 mmol/L 98-108 0840921228) CO2 TOTAL (test code = 24 mmol/L 23-31 7596216277) AGAP (test code = 5 2-16 4818151775) BUN (test code = 3 mg/dL 7-23 L 4298057865) GLUCOSE (test code = 108 mg/dL 70-110 3448835727) CREATININE (test code = 0.40 mg/dL 0.60-1.25 L 5344862780) CALCIUM (test code = 8.5 mg/dL 8.6-10.6 L 7552834330) eGFR (test code = 210.9 mL/min/1.73m2 5204990007) FRANK (test code = FRANK) Association of [...] tests). Lab Interpretation Abnormal (test code = 51825-6) [facility] Test Item Value Reference Range Interpretation Comments MAGNESIUM (test code = 5009310767) 2.0 mg/dL 1.7-2.4 Lab Interpretation (test code = Normal 78684-8) [facility] Test Item Value Reference Range Interpretation Comments MAGNESIUM (test code = 0507246787) 2.0 mg/dL 1.7-2.4 Lab Interpretation (test code = Normal 58173-5) [facility] WITH [id number] 09:38:59 Test Item Value Reference Range Interpretation Comments WBC (test code = 5.86 See_Comment [Automated 9390-2) message] The sy stem which generated this result transmitted reference range : 4.20 - 10.70 10*3/?L. The reference range was not used to interpret this result as normal/abnormal . RBC (test code = 4.19 See_Comment L [Automated 789-8) message] The sy stem which generated this result transmitted reference range : 4.26 - 5.52 10*6/?L. The reference range was not used to interpret this result as normal/abnormal . HGB (test code = 11.2 g/dL 12.2-16.4 L 718-7) HCT (test code = 33.7 % 38.4-49.3 L 4544-3) MCV (test code = 80.4 fL 81.7-95.6 L 787-2) MCH (test code = 26.7 pg 26.1-32.7 785-6) MCHC (test code = 33.2 g/dL 31.2-35.0 786-4) RDW-SD (test code = 46.2 fL 38.5-51.6 99787-9) RDW-CV (test code = 15.9 % 12.1-15.4 H 788-0) PLT (test code = 250 See_Comment [Automated 777-3) message] The sy stem which generated this result transmitted reference range : 150 - 328 10*3/ ?L. The reference r denise was not used to interpret this result as normal/abnormal . MPV (test code = 8.5 fL 9.8-13.0 L 82944-4) NRBC/100 WBC (test 0.0 See_Comment [Automat ed code = 2362023284) message] The system which generated this result transmitted reference range : 0.0 - 10.0 /100 WBCs. The refer ence range was not u sed to interpret th is result as normal/abnormal . NRBC x10^3 (test code See_Comment [Auto mated = 8038329051) message] The s ystem which generated this result transmitted reference range : 10*3/?L. The reference range was not used to interpret this result as normal/abnormal . GRAN MAT (NEUT) % 51.5 % (test code = 770-8) IMM GRAN % (test code 0.30 % = 5766418621) LYMPH % (test code = 32.6 % 736-9) MONO % (test code = 7.7 % 5905-5) EOS % (test code = 7.2 % 713-8) BASO % (test code = 0.7 % 706-2) GRAN MAT x10^3(ANC) 3.02 10*3/uL 1.99-6.95 (test code = 0315970972) IMM GRAN x10^3 (test 0.00-0.06 code = 0310500851) LYMPH x10^3 (test code 1.91 10*3/uL 1.09-3.23 = 731-0) MONO x10^3 (test code 0.45 10*3/uL 0.36-1.02 = 742-7) EOS x10^3 (test code = 0.42 10*3/uL 0.06-0.53 711-2) BASO x10^3 (test code 0.04 10*3/uL 0.01-0.09 = 704-7) Lab Interpretation Abnormal (test code = 34256-4) [facility] WITH [id number] 09:38:59 Test Item Value Reference Range Interpretation Comments WBC (test code = 5.86 See_Comment [Automated 6690-2) message] The sy stem which generated this result transmitted reference range : 4.20 - 10.70 10*3/?L. The reference range was not used to interpret this result as normal/abnormal . RBC (test code = 4.19 See_Comment L [Automated 539-8) message] The sy stem which generated this result transmitted reference range : 4.26 - 5.52 10*6/?L. The reference range was not used to interpret this result as normal/abnormal . HGB (test code = 11.2 g/dL 12.2-16.4 L 718-7) HCT (test code = 33.7 % 38.4-49.3 L 4544-3) MCV (test code = 80.4 fL 81.7-95.6 L 787-2) MCH (test code = 26.7 pg 26.1-32.7 785-6) MCHC (test code = 33.2 g/dL 31.2-35.0 786-4) RDW-SD (test code = 46.2 fL 38.5-51.6 00018-2) RDW-CV (test code = 15.9 % 12.1-15.4 H 788-0) PLT (test code = 250 See_Comment [Automated 777-3) message] The sy stem which generated this result transmitted reference range : 150 - 328 10*3/ ?L. The reference r denise was not used to interpret this result as normal/abnormal . MPV (test code = 8.5 fL 9.8-13.0 L 26075-2) NRBC/100 WBC (test 0.0 See_Comment [Automat ed code = 2308980084) message] The system which generated this result transmitted reference range : 0.0 - 10.0 /100 WBCs. The refer ence range was not u sed to interpret th is result as normal/abnormal . NRBC x10^3 (test code See_Comment [Auto mated = 2473167689) message] The s ystem which generated this result transmitted reference range : 10*3/?L. The reference range was not used to interpret this result as normal/abnormal . GRAN MAT (NEUT) % 51.5 % (test code = 770-8) IMM GRAN % (test code 0.30 % = 6186655179) LYMPH % (test code = 32.6 % 736-9) MONO % (test code = 7.7 % 5905-5) EOS % (test code = 7.2 % 713-8) BASO % (test code = 0.7 % 706-2) GRAN MAT x10^3(ANC) 3.02 10*3/uL 1.99-6.95 (test code = 9543202041) IMM GRAN x10^3 (test 0.00-0.06 code = 1968495252) LYMPH x10^3 (test code 1.91 10*3/uL 1.09-3.23 = 731-0) MONO x10^3 (test code 0.45 10*3/uL 0.36-1.02 = 742-7) EOS x10^3 (test code = 0.42 10*3/uL 0.06-0.53 711-2) BASO x10^3 (test code 0.04 10*3/uL 0.01-0.09 = 704-7) Lab Interpretation Abnormal (test code = 55944-7) [facility] GLUCOSE (AUTOMATED)2022-11-28 01:49:18 Test Item Value Reference Range Interpretation Comments POCT GLU (test code = 1752074894) 116 mg/dL 70-110 H Lab Interpretation (test code = Abnormal 01918-2) [facility] GLUCOSE (AUTOMATED)2022-11-28 01:49:18 Test Item Value Reference Range Interpretation Comments POCT GLU (test code = 6523840053) 116 mg/dL 70-110 H Lab Interpretation (test code = Abnormal 71619-2) [facility] GLUCOSE (AUTOMATED)2022-11-27 21:56:16 Test Item Value Reference Range Interpretation Comments POCT GLU (test code = 1161505117) 105 mg/dL 70-110 Lab Interpretation (test code = Normal 91558-6) [facility] GLUCOSE (AUTOMATED)2022-11-27 21:56:16 Test Item Value Reference Range Interpretation Comments POCT GLU (test code = 8850257955) 105 mg/dL 70-110 Lab Interpretation (test code = Normal 86677-5) [facility] GLUCOSE (AUTOMATED)2022-11-27 17:31:16 Test Item Value Reference Range Interpretation Comments POCT GLU (test code = 6424437203) 139 mg/dL 70-110 H Lab Interpretation (test code = Abnormal 22272-2) [facility] GLUCOSE (AUTOMATED)2022-11-27 17:31:16 Test Item Value Reference Range Interpretation Comments POCT GLU (test code = 0311371516) 139 mg/dL 70-110 H Lab Interpretation (test code = Abnormal 93383-3) [facility] GLUCOSE (AUTOMATED)2022-11-27 12:57:08 Test Item Value Reference Range Interpretation Comments POCT GLU (test code = 8060391848) 93 mg/dL 70-110 Lab Interpretation (test code = Normal 71032-0) [facility] GLUCOSE (AUTOMATED)2022-11-27 12:57:08 Test Item Value Reference Range Interpretation Comments POCT GLU (test code = 6608869683) 93 mg/dL 70-110 Lab Interpretation (test code = Normal 79411-5) [facility] GLUCOSE (AUTOMATED)2022-11-27 01:55:09 Test Item Value Reference Range Interpretation Comments POCT GLU (test code = 3660865424) 106 mg/dL 70-110 Lab Interpretation (test code = Normal 56281-6) [facility] GLUCOSE (AUTOMATED)2022-11-27 01:55:09 Test Item Value Reference Range Interpretation Comments POCT GLU (test code = 7125618513) 106 mg/dL 70-110 Lab Interpretation (test code = Normal 46834-3) [facility] GLUCOSE (AUTOMATED)2022-11-26 21:37:09 Test Item Value Reference Range Interpretation Comments POCT GLU (test code = 6741294160) 120 mg/dL 70-110 H Lab Interpretation (test code = Abnormal 24103-5) [facility] GLUCOSE (AUTOMATED)2022-11-26 21:37:09 Test Item Value Reference Range Interpretation Comments POCT GLU (test code = 9740604196) 120 mg/dL 70-110 H Lab Interpretation (test code = Abnormal 16498-9) [facility] GLUCOSE (AUTOMATED)2022-11-26 18:35:40 Test Item Value Reference Range Interpretation Comments POCT GLU (test code = 8359640030) 118 mg/dL 70-110 H Lab Interpretation (test code = Abnormal 85107-2) [facility] GLUCOSE (AUTOMATED)2022-11-26 18:35:40 Test Item Value Reference Range Interpretation Comments POCT GLU (test code = 2498424657) 118 mg/dL 70-110 H Lab Interpretation (test code = Abnormal 76766-9) [facility] GLUCOSE (AUTOMATED)2022-11-26 14:10:05 Test Item Value Reference Range Interpretation Comments POCT GLU (test code = 6320536780) 115 mg/dL 70-110 H Lab Interpretation (test code = Abnormal 73953-1) [facility] GLUCOSE (AUTOMATED)2022-11-26 14:10:05 Test Item Value Reference Range Interpretation Comments POCT GLU (test code = 1592429308) 115 mg/dL 70-110 H Lab Interpretation (test code = Abnormal 62265-5) [facility] METABOLIC PANEL (NA, K, CL, CO2, GLUCOSE, BUN, CREATININE, CA)2022-11-26 09:26:50 Test Item Value Reference Range Interpretation Comments NA (test code = 134 mmol/L 135-145 L 6704905655) K (test code = 3.6 mmol/L 3.5-5.0 9879653968) CL (test code = 105 mmol/L 98-108 8377869815) CO2 TOTAL (test code = 23 mmol/L 23-31 1881275230) AGAP (test code = 6 2-16 0467429724) BUN (test code = 3 mg/dL 7-23 L 6042026820) GLUCOSE (test code = 104 mg/dL 70-110 4259875000) CREATININE (test code = 0.40 mg/dL 0.60-1.25 L 5169424064) CALCIUM (test code = 8.4 mg/dL 8.6-10.6 L 9737217458) eGFR (test code = 210.9 mL/min/1.73m2 8786154600) FRANK (test code = FRANK) Association of [...] tests). Lab Interpretation Abnormal (test code = 32222-4) [facility]:50 Test Item Value Reference Range Interpretation Comments MAGNESIUM (test code = 6154472440) 2.1 mg/dL 1.7-2.4 Lab Interpretation (test code = Normal 99763-0) [facility] METABOLIC PANEL (NA, K, CL, CO2, GLUCOSE, BUN, CREATININE, CA)2022-11-26 09:26:50 Test Item Value Reference Range Interpretation Comments NA (test code = 134 mmol/L 135-145 L 0380070449) K (test code = 3.6 mmol/L 3.5-5.0 5801262095) CL (test code = 105 mmol/L 98-108 3409145456) CO2 TOTAL (test code = 23 mmol/L 23-31 4141319109) AGAP (test code = 6 2-16 4115531703) BUN (test code = 3 mg/dL 7-23 L 9954811944) GLUCOSE (test code = 104 mg/dL 70-110 2542179178) CREATININE (test code = 0.40 mg/dL 0.60-1.25 L 3489405464) CALCIUM (test code = 8.4 mg/dL 8.6-10.6 L 7473550727) eGFR (test code = 210.9 mL/min/1.73m2 2158060408) FRANK (test code = FRANK) Association of [...] tests). Lab Interpretation Abnormal (test code = 50071-3) [facility] 09:26:50 Test Item Value Reference Range Interpretation Comments MAGNESIUM (test code = 9963608153) 2.1 mg/dL 1.7-2.4 Lab Interpretation (test code = Normal 93526-0) [facility] WITH [id number] 09:03:08 Test Item Value Reference Range Interpretation Comments WBC (test code = 7.58 See_Comment [Automated 6690-2) message] The sy stem which generated this result transmitted reference range : 4.20 - 10.70 10*3/?L. The reference range was not used to interpret this result as normal/abnormal . RBC (test code = 4.03 See_Comment L [Automated 049-8) message] The sy stem which generated this result transmitted reference range : 4.26 - 5.52 10*6/?L. The reference range was not used to interpret this result as normal/abnormal . HGB (test code = 10.5 g/dL 12.2-16.4 L 718-7) HCT (test code = 32.0 % 38.4-49.3 L 4544-3) MCV (test code = 79.4 fL 81.7-95.6 L 787-2) MCH (test code = 26.1 pg 26.1-32.7 785-6) MCHC (test code = 32.8 g/dL 31.2-35.0 786-4) RDW-SD (test code = 46.2 fL 38.5-51.6 64246-9) RDW-CV (test code = 15.9 % 12.1-15.4 H 788-0) PLT (test code = 256 See_Comment [Automated 777-3) message] The sy stem which generated this result transmitted reference range : 150 - 328 10*3/ ?L. The reference r denise was not used to interpret this result as normal/abnormal . MPV (test code = 8.3 fL 9.8-13.0 L 91656-6) NRBC/100 WBC (test 0.0 See_Comment [Automat ed code = 9209679372) message] The system which generated this result transmitted reference range : 0.0 - 10.0 /100 WBCs. The refer ence range was not u sed to interpret th is result as normal/abnormal . NRBC x10^3 (test code See_Comment [Auto mated = 0781103531) message] The s ystem which generated this result transmitted reference range : 10*3/?L. The reference range was not used to interpret this result as normal/abnormal . GRAN MAT (NEUT) % 64.5 % (test code = 770-8) IMM GRAN % (test code 0.40 % = 0672750476) LYMPH % (test code = 25.1 % 736-9) MONO % (test code = 6.6 % 5905-5) EOS % (test code = 3.0 % 713-8) BASO % (test code = 0.4 % 706-2) GRAN MAT x10^3(ANC) 4.89 10*3/uL 1.99-6.95 (test code = 7769722391) IMM GRAN x10^3 (test 0.03 10*3/uL 0.00-0.06 code = 5096105470) LYMPH x10^3 (test code 1.90 10*3/uL 1.09-3.23 = 731-0) MONO x10^3 (test code 0.50 10*3/uL 0.36-1.02 = 742-7) EOS x10^3 (test code = 0.23 10*3/uL 0.06-0.53 711-2) BASO x10^3 (test code 0.03 10*3/uL 0.01-0.09 = 704-7) Lab Interpretation Abnormal (test code = 80529-4) [facility] WITH [id number] 09:03:08 Test Item Value Reference Range Interpretation Comments WBC (test code = 7.58 See_Comment [Automated 6690-2) message] The sy stem which generated this result transmitted reference range : 4.20 - 10.70 10*3/?L. The reference range was not used to interpret this result as normal/abnormal . RBC (test code = 4.03 See_Comment L [Automated 789-8) message] The sy stem which generated this result transmitted reference range : 4.26 - 5.52 10*6/?L. The reference range was not used to interpret this result as normal/abnormal . HGB (test code = 10.5 g/dL 12.2-16.4 L 718-7) HCT (test code = 32.0 % 38.4-49.3 L 4544-3) MCV (test code = 79.4 fL 81.7-95.6 L 787-2) MCH (test code = 26.1 pg 26.1-32.7 785-6) MCHC (test code = 32.8 g/dL 31.2-35.0 786-4) RDW-SD (test code = 46.2 fL 38.5-51.6 54652-8) RDW-CV (test code = 15.9 % 12.1-15.4 H 788-0) PLT (test code = 256 See_Comment [Automated 777-3) message] The sy stem which generated this result transmitted reference range : 150 - 328 10*3/ ?L. The reference r denise was not used to interpret this result as normal/abnormal . MPV (test code = 8.3 fL 9.8-13.0 L 68423-7) NRBC/100 WBC (test 0.0 See_Comment [Automat ed code = 2512575632) message] The system which generated this result transmitted reference range : 0.0 - 10.0 /100 WBCs. The refer ence range was not u sed to interpret th is result as normal/abnormal . NRBC x10^3 (test code See_Comment [Auto mated = 4548062606) message] The s ystem which generated this result transmitted reference range : 10*3/?L. The reference range was not used to interpret this result as normal/abnormal . GRAN MAT (NEUT) % 64.5 % (test code = 770-8) IMM GRAN % (test code 0.40 % = 7069927554) LYMPH % (test code = 25.1 % 736-9) MONO % (test code = 6.6 % 5905-5) EOS % (test code = 3.0 % 713-8) BASO % (test code = 0.4 % 706-2) GRAN MAT x10^3(ANC) 4.89 10*3/uL 1.99-6.95 (test code = 0173971042) IMM GRAN x10^3 (test 0.03 10*3/uL 0.00-0.06 code = 4535523823) LYMPH x10^3 (test code 1.90 10*3/uL 1.09-3.23 = 731-0) MONO x10^3 (test code 0.50 10*3/uL 0.36-1.02 = 742-7) EOS x10^3 (test code = 0.23 10*3/uL 0.06-0.53 711-2) BASO x10^3 (test code 0.03 10*3/uL 0.01-0.09 = 704-7) Lab Interpretation Abnormal (test code = 20033-5) [facility] GLUCOSE (AUTOMATED)2022-11-26 00:45:34 Test Item Value Reference Range Interpretation Comments POCT GLU (test code = 2328942823) 107 mg/dL 70-110 Lab Interpretation (test code = Normal 13192-1) [facility] GLUCOSE (AUTOMATED)2022-11-26 00:45:34 Test Item Value Reference Range Interpretation Comments POCT GLU (test code = 1597635698) 107 mg/dL 70-110 Lab Interpretation (test code = Normal 35242-2) [facility] ACT LOW [id number] 23:44:31 Test Item Value Reference Range Interpretation Comments ACTLR (test code = 216 See_Comment H [Automat ed message] 0544974439) The system [employer] generated this result transmitted ref erence range: 89 - 169 Seconds. The reference range was not used to int erpret this result as normal/abnormal . Lab Interpretation (test Abnormal code = 77213-4) [facility] ACT LOW [id number] 23:44:31 Test Item Value Reference Range Interpretation Comments ACTLR (test code = 216 See_Comment H [Automat ed message] 2715662102) The system [employer] generated this result transmitted ref erence range: 89 - 169 Seconds. The reference range was not used to int erpret this result as normal/abnormal . Lab Interpretation (test Abnormal code = 28376-4) [facility] GLUCOSE (AUTOMATED)2022-11-25 22:29:12 Test Item Value Reference Range Interpretation Comments POCT GLU (test code = 5251102755) 138 mg/dL 70-110 H Lab Interpretation (test code = Abnormal 77038-0) [facility] GLUCOSE (AUTOMATED)2022-11-25 22:29:12 Test Item Value Reference Range Interpretation Comments POCT GLU (test code = 0792578496) 138 mg/dL 70-110 H Lab Interpretation (test code = Abnormal 88502-1) [facility] GLUCOSE (AUTOMATED)2022-11-25 17:15:36 Test Item Value Reference Range Interpretation Comments POCT GLU (test code = 1013003140) 128 mg/dL 70-110 H Lab Interpretation (test code = Abnormal 89179-3) [facility] GLUCOSE (AUTOMATED)2022-11-25 17:15:36 Test Item Value Reference Range Interpretation Comments POCT GLU (test code = 4763308519) 128 mg/dL 70-110 H Lab Interpretation (test code = Abnormal 85270-8) [facility] GLUCOSE (AUTOMATED)2022-11-25 13:51:57 Test Item Value Reference Range Interpretation Comments POCT GLU (test code = 0699635272) 117 mg/dL 70-110 H Lab Interpretation (test code = Abnormal 95711-7) [facility] GLUCOSE (AUTOMATED)2022-11-25 13:51:57 Test Item Value Reference Range Interpretation Comments POCT GLU (test code = 3172792819) 117 mg/dL 70-110 H Lab Interpretation (test code = Abnormal 01231-2) [id number]:03[facility]44 Test Item Value Reference Range Interpretation Comments TROPONIN I (test code = 2.670 ng/mL <=0.034 H 7217382899) FRANK (test code = FRANK) Reference (Normal) Range (defined by the 99th percentile reference limit): <= 0.034 ng/mL Note: Cardiac troponin begins to rise 3-4 hours after the onset of ischemia. Repeat in 4-6 hours if the sample was drawn within 3-4 hours of the onset of the symptom and found normal. Diagnosis of myocardial injury is made with acute changes in cTn concentrations with at least one serial sample above the 99th percentile upper reference limit (URL), taken together with the patient's clinical presentation. Biotin has been reported to cause a negative bias, interpret results relative to patient's use of biotin. Lab Interpretation Abnormal (test code = 14492-3) [facility] [id number] 10:03:44 Test Item Value Reference Range Interpretation Comments TROPONIN I (test code = 2.670 ng/mL <=0.034 H 8045554040) FRANK (test code = FRANK) Reference (Normal) Range (defined by the 99th percentile reference limit): <= 0.034 ng/mL Note: Cardiac troponin begins to rise 3-4 hours after the onset of ischemia. Repeat in 4-6 hours if the sample was drawn within 3-4 hours of the onset of the symptom and found normal. Diagnosis of myocardial injury is made with acute changes in cTn concentrations with at least one serial sample above the 99th percentile upper reference limit (URL), taken together with the patient's clinical presentation. Biotin has been reported to cause a negative bias, interpret results relative to patient's use of biotin. Lab Interpretation Abnormal (test code = 18865-1) [facility] [id number] 07:39:33 Test Item Value Reference Range Interpretation Comments TROPONIN I (test code = 3.010 ng/mL <=0.034 H 9235978113) FRANK (test code = FRANK) Reference (Normal) Range (defined by the 99th percentile reference limit): <= 0.034 ng/mL Note: Cardiac troponin begins to rise 3-4 hours after the onset of ischemia. Repeat in 4-6 hours if the sample was drawn within 3-4 hours of the onset of the symptom and found normal. Diagnosis of myocardial injury is made with acute changes in cTn concentrations with at least one serial sample above the 99th percentile upper reference limit (URL), taken together with the patient's clinical presentation. Biotin has been reported to cause a negative bias, interpret results relative to patient's use of biotin. Lab Interpretation Abnormal (test code = 85635-0) [id number] 07:39:33 Test Item Value Reference Range Interpretation Comments TROPONIN I (test code = 3.010 ng/mL <=0.034 H 1491579239) FRANK (test code = FRANK) Reference (Normal) Range (defined by the 99th percentile reference limit): <= 0.034 ng/mL Note: Cardiac troponin begins to rise 3-4 hours after the onset of ischemia. Repeat in 4-6 hours if the sample was drawn within 3-4 hours of the onset of the symptom and found normal. Diagnosis of myocardial injury is made with acute changes in cTn concentrations with at least one serial sample above the 99th percentile upper reference limit (URL), taken together with the patient's clinical presentation. Biotin has been reported to cause a negative bias, interpret results relative to patient's use of biotin. Lab Interpretation Abnormal (test code = 10773-1) [facility] (43595)2022-11-25 07:15:23 Test Item Value Reference Range Interpretation Comments NA (test code = 134 mmol/L 135-145 L 5462844451) K (test code = 3.4 mmol/L 3.5-5.0 L 3598689963) CL (test code = 101 mmol/L 98-108 8560519125) CO2 TOTAL (test code = 25 mmol/L 23-31 6610873656) AGAP (test code = 8 2-16 3536401243) BUN (test code = 6 mg/dL 7-23 L 5175848085) GLUCOSE (test code = 111 mg/dL 70-110 H 0539908581) CREATININE (test code = 0.40 mg/dL 0.60-1.25 L 8599887108) TOTAL BILI (test code = 0.8 mg/dL 0.1-1.5 3036287949) CALCIUM (test code = 8.4 mg/dL 8.6-10.6 L 3448980870) T PROTEIN (test code = 6.6 g/dL 6.3-8.2 0266614837) ALBUMIN (test code = 3.7 g/dL 3.5-5.0 1257384114) ALK PHOS (test code = 62 U/L 34-122 0058223758) ALTv (test code = 7 U/L 5-50 1742-6) AST(SGOT) (test code = 49 U/L 13-40 H 7356187272) eGFR (test code = 210.9 mL/min/1.73m2 7522257457) FRANK (test code = FRANK) Association of [...] tests). Lab Interpretation Abnormal (test code = 95738-1) [facility]23 Test Item Value Reference Range Interpretation Comments MAGNESIUM (test code = 0308038936) 2.0 mg/dL 1.7-2.4 Lab Interpretation (test code = Normal 23013-3) [facility]. METABOLIC PANEL (85045)2022-11-25 07:15:23 Test Item Value Reference Range Interpretation Comments NA (test code = 134 mmol/L 135-145 L 0029609007) K (test code = 3.4 mmol/L 3.5-5.0 L 1481014313) CL (test code = 101 mmol/L 98-108 3954280374) CO2 TOTAL (test code = 25 mmol/L 23-31 0719401407) AGAP (test code = 8 2-16 4614289184) BUN (test code = 6 mg/dL 7-23 L 4744411252) GLUCOSE (test code = 111 mg/dL 70-110 H 6037722926) CREATININE (test code = 0.40 mg/dL 0.60-1.25 L 8370973432) TOTAL BILI (test code = 0.8 mg/dL 0.1-1.5 5065306405) CALCIUM (test code = 8.4 mg/dL 8.6-10.6 L 7666659278) T PROTEIN (test code = 6.6 g/dL 6.3-8.2 9509132505) ALBUMIN (test code = 3.7 g/dL 3.5-5.0 7099332058) ALK PHOS (test code = 62 U/L 34-122 8552300779) ALTv (test code = 7 U/L 5-50 1742-6) AST(SGOT) (test code = 49 U/L 13-40 H 8014542351) eGFR (test code = 210.9 mL/min/1.73m2 5507360578) FRANK (test code = FRANK) Association of [...] tests). Lab Interpretation Abnormal (test code = 09965-2) [facility]15[facility]23 Test Item Value Reference Range Interpretation Comments MAGNESIUM (test code = 4391513894) 2.0 mg/dL 1.7-2.4 Lab Interpretation (test code = Normal 25951-7) [facility] with [id number] 06:46:48 Test Item Value Reference Range Interpretation Comments WBC (test code = 7.76 See_Comment [Automated 9090-2) message] The sy stem which generated this result transmitted reference range : 4.20 - 10.70 10*3/?L. The reference range was not used to interpret this result as normal/abnormal . RBC (test code = 4.19 See_Comment L [Automated 799-8) message] The sy stem which generated this result transmitted reference range : 4.26 - 5.52 10*6/?L. The reference range was not used to interpret this result as normal/abnormal . HGB (test code = 11.2 g/dL 12.2-16.4 L 718-7) HCT (test code = 33.4 % 38.4-49.3 L 4544-3) MCV (test code = 79.7 fL 81.7-95.6 L 787-2) MCH (test code = 26.7 pg 26.1-32.7 785-6) MCHC (test code = 33.5 g/dL 31.2-35.0 786-4) RDW-SD (test code = 45.7 fL 38.5-51.6 70541-1) RDW-CV (test code = 16.0 % 12.1-15.4 H 788-0) PLT (test code = 310 See_Comment [Automated 777-3) message] The sy stem which generated this result transmitted reference range : 150 - 328 10*3/ ?L. The reference r denise was not used to interpret this result as normal/abnormal . MPV (test code = 8.7 fL 9.8-13.0 L 76207-8) NRBC/100 WBC (test 0.0 See_Comment [Automat ed code = 4707025992) message] The system which generated this result transmitted reference range : 0.0 - 10.0 /100 WBCs. The refer ence range was not u sed to interpret th is result as normal/abnormal . NRBC x10^3 (test code See_Comment [Auto mated = 6360888877) message] The s ystem which generated this result transmitted reference range : 10*3/?L. The reference range was not used to interpret this result as normal/abnormal . GRAN MAT (NEUT) % 64.8 % (test code = 770-8) IMM GRAN % (test code 0.40 % = 1413109079) LYMPH % (test code = 25.6 % 736-9) MONO % (test code = 7.9 % 5905-5) EOS % (test code = 1.0 % 713-8) BASO % (test code = 0.3 % 706-2) GRAN MAT x10^3(ANC) 5.03 10*3/uL 1.99-6.95 (test code = 5258490742) IMM GRAN x10^3 (test 0.03 10*3/uL 0.00-0.06 code = 8956915314) LYMPH x10^3 (test code 1.99 10*3/uL 1.09-3.23 = 731-0) MONO x10^3 (test code 0.61 10*3/uL 0.36-1.02 = 742-7) EOS x10^3 (test code = 0.08 10*3/uL 0.06-0.53 711-2) BASO x10^3 (test code 0.01-0.09 = 704-7) Lab Interpretation Abnormal (test code = 86897-3) [facility] with Lbnrboryhtxt7372-09-65 06:46:48 Test Item Value Reference Range Interpretation Comments WBC (test code = 7.76 See_Comment [Automated 6690-2) message] The sy stem which generated this result transmitted reference range : 4.20 - 10.70 10*3/?L. The reference range was not used to interpret this result as normal/abnormal . RBC (test code = 4.19 See_Comment L [Automated 789-8) message] The sy stem which generated this result transmitted reference range : 4.26 - 5.52 10*6/?L. The reference range was not used to interpret this result as normal/abnormal . HGB (test code = 11.2 g/dL 12.2-16.4 L 718-7) HCT (test code = 33.4 % 38.4-49.3 L 4544-3) MCV (test code = 79.7 fL 81.7-95.6 L 787-2) MCH (test code = 26.7 pg 26.1-32.7 785-6) MCHC (test code = 33.5 g/dL 31.2-35.0 786-4) RDW-SD (test code = 45.7 fL 38.5-51.6 26653-9) RDW-CV (test code = 16.0 % 12.1-15.4 H 788-0) PLT (test code = 310 See_Comment [Automated 777-3) message] The sy stem which generated this result transmitted reference range : 150 - 328 10*3/ ?L. The reference r denise was not used to interpret this result as normal/abnormal . MPV (test code = 8.7 fL 9.8-13.0 L 50928-8) NRBC/100 WBC (test 0.0 See_Comment [Automat ed code = 8291058380) message] The system which generated this result transmitted reference range : 0.0 - 10.0 /100 WBCs. The refer ence range was not u sed to interpret th is result as normal/abnormal . NRBC x10^3 (test code See_Comment [Auto mated = 3375757662) message] The s ystem which generated this result transmitted reference range : 10*3/?L. The reference range was not used to interpret this result as normal/abnormal . GRAN MAT (NEUT) % 64.8 % (test code = 770-8) IMM GRAN % (test code 0.40 % = 6018461392) LYMPH % (test code = 25.6 % 736-9) MONO % (test code = 7.9 % 5905-5) EOS % (test code = 1.0 % 713-8) BASO % (test code = 0.3 % 706-2) GRAN MAT x10^3(ANC) 5.03 10*3/uL 1.99-6.95 (test code = 7071407359) IMM GRAN x10^3 (test 0.03 10*3/uL 0.00-0.06 code = 4932465976) LYMPH x10^3 (test code 1.99 10*3/uL 1.09-3.23 = 731-0) MONO x10^3 (test code 0.61 10*3/uL 0.36-1.02 = 742-7) EOS x10^3 (test code = 0.08 10*3/uL 0.06-0.53 711-2) BASO x10^3 (test code 0.01-0.09 = 704-7) Lab Interpretation Abnormal (test code = 16157-5) [facility]TOTAL CHOLESTEROL, TRIGLYCERIDES, HDL)2022-11-25 02:16:45 Test Item Value Reference Range Interpretation Comments CHOL (test code = 4653217351) 142 mg/dL 120-200 HDL (test code = 2112241440) 47 mg/dL >=40 HDLC RATIO (test code = 6646054205) 3.0 <=5.0 TRIG (test code = 0178515451) 96 mg/dL 30-170 LDL CHOL (test code = 42044-0) 76 mg/dL <=160 VLDL (test code = 7475999097) 19 mg/dL 5-60 Lab Interpretation (test code = Normal 60573-3) [facility]21992)(TOTAL CHOLESTEROL, TRIGLYCERIDES, HDL)2022-11-25 02:16:45 Test Item Value Reference Range Interpretation Comments CHOL (test code = 8954248461) 142 mg/dL 120-200 HDL (test code = 8158987885) 47 mg/dL >=40 HDLC RATIO (test code = 1147135617) 3.0 <=5.0 TRIG (test code = 2812575390) 96 mg/dL 30-170 LDL CHOL (test code = 52080-7) 76 mg/dL <=160 VLDL (test code = 6785577635) 19 mg/dL 5-60 Lab Interpretation (test code = Normal 98913-4) [facility] [id number] 00:05:30 Test Item Value Reference Range Interpretation Comments TROPONIN I (test code = 3.950 ng/mL <=0.034 H 4924065099) FRANK (test code = FRANK) Reference (Normal) Range (defined by the 99th percentile reference limit): <= 0.034 ng/mL Note: Cardiac troponin begins to rise 3-4 hours after the onset of ischemia. Repeat in 4-6 hours if the sample was drawn within 3-4 hours of the onset of the symptom and found normal. Diagnosis of myocardial injury is made with acute changes in cTn concentrations with at least one serial sample above the 99th percentile upper reference limit (URL), taken together with the patient's clinical presentation. Biotin has been reported to cause a negative bias, interpret results relative to patient's use of biotin. Lab Interpretation Abnormal (test code = 05783-5) [facility] [id number] 00:05:30 Test Item Value Reference Range Interpretation Comments TROPONIN I (test code = 3.950 ng/mL <=0.034 H 7272370763) FRANK (test code = FRANK) Reference (Normal) Range (defined by the 99th percentile reference limit): <= 0.034 ng/mL Note: Cardiac troponin begins to rise 3-4 hours after the onset of ischemia. Repeat in 4-6 hours if the sample was drawn within 3-4 hours of the onset of the symptom and found normal. Diagnosis of myocardial injury is made with acute changes in cTn concentrations with at least one serial sample above the 99th percentile upper reference limit (URL), taken together with the patient's clinical presentation. Biotin has been reported to cause a negative bias, interpret results relative to patient's use of biotin. Lab Interpretation Abnormal (test code = 43799-0) [facility] GLUCOSE (AUTOMATED)2022-11-24 21:32:57 Test Item Value Reference Range Interpretation Comments POCT GLU (test code = 1951186372) 162 mg/dL 70-110 H Lab Interpretation (test code = Abnormal 10003-3) [facility] GLUCOSE (AUTOMATED)2022-11-24 21:32:57 Test Item Value Reference Range Interpretation Comments POCT GLU (test code = 7720898841) 162 mg/dL 70-110 H Lab Interpretation (test code = Abnormal 73443-8) [facility]2022-11-24 21:29:19 Test Item Value Reference Range Interpretation Comments HGB A1C (test code = 5.6 % 4.0-5.7 4548-4) FRANK (test code = FRANK) Reference RangesNormal: <5.7%Prediabetes: 5.7 - 6.4%Diabetes: > 6.5% Lab Interpretation (test Normal code = 45051-1) [facility]2022-11-24 21:29:19 Test Item Value Reference Range Interpretation Comments HGB A1C (test code = 5.6 % 4.0-5.7 4548-4) FRANK (test code = FRANK) Reference RangesNormal: <5.7%Prediabetes: 5.7 - 6.4%Diabetes: > 6.5% Lab Interpretation (test Normal code = 12622-7) [facility] 20:18:15 Test Item Value Reference Range Interpretation Comments APTT Patient (test 28 See_Comment [Automat ed code = 3173-2) message] The system which generated this result transmitted reference range : 23 - 38 Seconds . The reference range was not used to interpr et this result as normal/abnormal . FRANK (test code = FRANK) The [facility] patient population mean normal value for aPTT is 30 seconds. Lab Interpretation Normal (test code = 28379-9) [facility] Test Item Value Reference Range Interpretation Comments APTT Patient (test 28 See_Comment [Automat ed code = 3173-2) message] The system which generated this result transmitted reference range : 23 - 38 Seconds . The reference range was not used to interpr et this result as normal/abnormal . FRANK (test code = FRANK) The [facility] patient population mean normal value for aPTT is 30 seconds. Lab Interpretation Normal (test code = 53011-8) [facility] / [id number] 20:12:56 Test Item Value Reference Range Interpretation Comments PROTIME PATIENT (test 16.5 See_Comment H [Auto mated message] code = 5964-2) The system [employer] generated this result transmitted ref erence range: 12.0 - 1 4.7 Seconds. The reference range was not used to int erpret this result as normal/abnormal . INR (test code = 6301-6) 1.4 Nor mal INR <1.1; Warfarin Therap eutic range 2.0 to 3. 0 or 2.5 to 3.5, dep ending upon the indica tions. Lab Interpretation (test Abnormal code = 55891-3) [facility] / [id number] 20:12:56 Test Item Value Reference Range Interpretation Comments PROTIME PATIENT (test 16.5 See_Comment H [Auto mated message] code = 5964-2) The system [employer] generated this result transmitted ref erence range: 12.0 - 1 4.7 Seconds. The reference range was not used to int erpret this result as normal/abnormal . INR (test code = 6301-6) 1.4 Nor mal INR <1.1; Warfarin Therap eutic range 2.0 to 3. 0 or 2.5 to 3.5, dep ending upon the indica tions. Lab Interpretation (test Abnormal code = 60404-7) [facility] [id number] 17:40:23 Test Item Value Reference Range Interpretation Comments TROPONIN I (test code = 3.690 ng/mL <=0.034 H 2135282176) FRANK (test code = FRANK) Reference (Normal) Range (defined by the 99th percentile reference limit): <= 0.034 ng/mL Note: Cardiac troponin begins to rise 3-4 hours after the onset of ischemia. Repeat in 4-6 hours if the sample was drawn within 3-4 hours of the onset of the symptom and found normal. Diagnosis of myocardial injury is made with acute changes in cTn concentrations with at least one serial sample above the 99th percentile upper reference limit (URL), taken together with the patient's clinical presentation. Biotin has been reported to cause a negative bias, interpret results relative to patient's use of biotin. Lab Interpretation Abnormal (test code = 84191-0) [facility] [id number] 17:40:23 Test Item Value Reference Range Interpretation Comments TROPONIN I (test code = 3.690 ng/mL <=0.034 H 1156332650) FRANK (test code = FRANK) Reference (Normal) Range (defined by the 99th percentile reference limit): <= 0.034 ng/mL Note: Cardiac troponin begins to rise 3-4 hours after the onset of ischemia. Repeat in 4-6 hours if the sample was drawn within 3-4 hours of the onset of the symptom and found normal. Diagnosis of myocardial injury is made with acute changes in cTn concentrations with at least one serial sample above the 99th percentile upper reference limit (URL), taken together with the patient's clinical presentation. Biotin has been reported to cause a negative bias, interpret results relative to patient's use of biotin. Lab Interpretation Abnormal (test code = 03240-6) [facility]aky[facility] Whole [id number] 16:32:10 Test Item Value Reference Range Interpretation Comments LACTIC ACID (test code = 5.48 mmol/L 0.50-2.20 H 5748120945) Lab Interpretation (test code = Abnormal 11540-7) [facility] Whole [id number] 16:32:10 Test Item Value Reference Range Interpretation Comments LACTIC ACID (test code = 5.48 mmol/L 0.50-2.20 H 2203680914) Lab Interpretation (test code = Abnormal 53860-7) [facility] GLUCOSE (AUTOMATED)2022-11-24 13:21:11 Test Item Value Reference Range Interpretation Comments POCT GLU (test code = 8721214907) 180 mg/dL 70-110 H Lab Interpretation (test code = Abnormal 26050-5) [facility] GLUCOSE (AUTOMATED)2022-11-24 13:21:11 Test Item Value Reference Range Interpretation Comments POCT GLU (test code = 1852798578) 180 mg/dL 70-110 H Lab Interpretation (test code = Abnormal 43394-2) [facility] [id number] 04:55:15 Test Item Value Reference Range Interpretation Comments TROPONIN I (test code = 0.019 ng/mL <=0.034 2865504375) FRANK (test code = FRANK) Reference (Normal) Range (defined by the 99th percentile reference limit): <= 0.034 ng/mL Note: Cardiac troponin begins to rise 3-4 hours after the onset of ischemia. Repeat in 4-6 hours if the sample was drawn within 3-4 hours of the onset of the symptom and found normal. Diagnosis of myocardial injury is made with acute changes in cTn concentrations with at least one serial sample above the 99th percentile upper reference limit (URL), taken together with the patient's clinical presentation. Biotin has been reported to cause a negative bias, interpret results relative to patient's use of biotin. Lab Interpretation Normal (test code = 34531-9) [facility] [id number] 04:55:15 Test Item Value Reference Range Interpretation Comments TROPONIN I (test code = 0.019 ng/mL <=0.034 9679587531) FRANK (test code = FRANK) Reference (Normal) Range (defined by the 99th percentile reference limit): <= 0.034 ng/mL Note: Cardiac troponin begins to rise 3-4 hours after the onset of ischemia. Repeat in 4-6 hours if the sample was drawn within 3-4 hours of the onset of the symptom and found normal. Diagnosis of myocardial injury is made with acute changes in cTn concentrations with at least one serial sample above the 99th percentile upper reference limit (URL), taken together with the patient's clinical presentation. Biotin has been reported to cause a negative bias, interpret results relative to patient's use of biotin. Lab Interpretation Normal (test code = 49009-9) [id number] 04:52:54 Test Item Value Reference Range Interpretation Comments NT-proBNP (test code = 484 pg/mL <=125 81976-9) FRANK (test code = FRANK) Result Indeterminate-Consid er causes of NT-proBNP elevation other than Heart failure such as acute coronary syndrome, pulmonary embolism, pulmonary hypertension, sepsis, stroke, and renal dysfunction. Lab Interpretation (test Abnormal code = 43563-2) [id number] 04:52:54 Test Item Value Reference Range Interpretation Comments NT-proBNP (test code = 484 pg/mL <=125 17842-6) FRANK (test code = FRANK) Result Indeterminate-Consid er causes of NT-proBNP elevation other than Heart failure such as acute coronary syndrome, pulmonary embolism, pulmonary hypertension, sepsis, stroke, and renal dysfunction. Lab Interpretation (test Abnormal code = 43047-6) [facility]. METABOLIC PANEL ([id number])2022-11-24 04:50:54 Test Item Value Reference Range Interpretation Comments NA (test code = 131 mmol/L 135-145 L 0421981345) K (test code = 3.4 mmol/L 3.5-5.0 L 5700281412) CL (test code = 99 mmol/L 98-108 1926593427) CO2 TOTAL (test code = 19 mmol/L 23-31 L 9110153711) AGAP (test code = 13 2-16 1241835335) BUN (test code = 6 mg/dL 7-23 L 8938768050) GLUCOSE (test code = 118 mg/dL 70-110 H 1303275477) CREATININE (test code = 0.42 mg/dL 0.60-1.25 L 7355721996) TOTAL BILI (test code = 0.9 mg/dL 0.1-1.4 6202809657) CALCIUM (test code = 8.7 mg/dL 8.6-10.6 1440900366) T PROTEIN (test code = 6.9 g/dL 6.3-8.2 8420351682) ALBUMIN (test code = 3.9 g/dL 3.5-5.0 6963744687) ALK PHOS (test code = 64 U/L 34-122 8685082698) ALTv (test code = 28 U/L 5-50 1742-6) AST(SGOT) (test code = 31 U/L 13-40 6564541352) eGFR (test code = 199.3 mL/min/1.73m2 9930938158) FRANK (test code = FRANK) Association of [...] tests). Lab Interpretation Abnormal (test code = 73687-9) [facility]. METABOLIC PANEL ([id number])2022-11-24 04:50:54 Test Item Value Reference Range Interpretation Comments NA (test code = 131 mmol/L 135-145 L 6890608379) K (test code = 3.4 mmol/L 3.5-5.0 L 9490635213) CL (test code = 99 mmol/L 98-108 9329403792) CO2 TOTAL (test code = 19 mmol/L 23-31 L 0359159886) AGAP (test code = 13 2-16 3668393439) BUN (test code = 6 mg/dL 7-23 L 1441095874) GLUCOSE (test code = 118 mg/dL 70-110 H 3403133824) CREATININE (test code = 0.42 mg/dL 0.60-1.25 L 6785044685) TOTAL BILI (test code = 0.9 mg/dL 0.1-1.9 3944018702) CALCIUM (test code = 8.7 mg/dL 8.6-10.6 0838124550) T PROTEIN (test code = 6.9 g/dL 6.3-8.2 7799069430) ALBUMIN (test code = 3.9 g/dL 3.5-5.0 1065372662) ALK PHOS (test code = 64 U/L 34-122 9681214883) ALTv (test code = 28 U/L 5-50 1742-6) AST(SGOT) (test code = 31 U/L 13-40 2808856074) eGFR (test code = 199.3 mL/min/1.73m2 4307928391) FRANK (test code = FRANK) Association of [...] tests). Lab Interpretation Abnormal (test code = 31852-3) [facility] WITH [id number] 04:31:15 Test Item Value Reference Range Interpretation Comments WBC (test code = 6.34 See_Comment [Automated 6690-2) message] The sy stem which generated this result transmitted reference range : 4.20 - 10.70 10*3/?L. The reference range was not used to interpret this result as normal/abnormal . RBC (test code = 4.33 See_Comment [Automated 789-8) message] The sy stem which generated this result transmitted reference range : 4.26 - 5.52 10*6/?L. The reference range was not used to interpret this result as normal/abnormal . HGB (test code = 11.7 g/dL 12.2-16.4 L 718-7) HCT (test code = 35.5 % 38.4-49.3 L 4544-3) MCV (test code = 82.0 fL 81.7-95.6 787-2) MCH (test code = 27.0 pg 26.1-32.7 785-6) MCHC (test code = 33.0 g/dL 31.2-35.0 786-4) RDW-SD (test code = 44.9 fL 38.5-51.6 54633-4) RDW-CV (test code = 15.1 % 12.1-15.4 788-0) PLT (test code = 260 See_Comment [Automated 777-3) message] The sy stem which generated this result transmitted reference range : 150 - 328 10*3/ ?L. The reference r denise was not used to interpret this result as normal/abnormal . MPV (test code = 8.6 fL 9.8-13.0 L 18994-9) NRBC/100 WBC (test 0.0 See_Comment [Automat ed code = 6984722208) message] The system which generated this result transmitted reference range : 0.0 - 10.0 /100 WBCs. The refer ence range was not u sed to interpret th is result as normal/abnormal . NRBC x10^3 (test code See_Comment [Auto mated = 2201176816) message] The s ystem which generated this result transmitted reference range : 10*3/?L. The reference range was not used to interpret this result as normal/abnormal . GRAN MAT (NEUT) % 66.0 % (test code = 770-8) IMM GRAN % (test code 0.60 % = 6380331912) LYMPH % (test code = 22.4 % 736-9) MONO % (test code = 6.6 % 5905-5) EOS % (test code = 3.9 % 713-8) BASO % (test code = 0.5 % 706-2) GRAN MAT x10^3(ANC) 4.18 10*3/uL 1.99-6.95 (test code = 8675831327) IMM GRAN x10^3 (test 0.04 10*3/uL 0.00-0.06 code = 1796777643) LYMPH x10^3 (test code 1.42 10*3/uL 1.09-3.23 = 731-0) MONO x10^3 (test code 0.42 10*3/uL 0.36-1.02 = 742-7) EOS x10^3 (test code = 0.25 10*3/uL 0.06-0.53 711-2) BASO x10^3 (test code 0.03 10*3/uL 0.01-0.09 = 704-7) Lab Interpretation Abnormal (test code = 05861-1) [facility] WITH [id number] 04:31:15 Test Item Value Reference Range Interpretation Comments WBC (test code = 6.34 See_Comment [Automated 3858-2) message] The sy stem which generated this result transmitted reference range : 4.20 - 10.70 10*3/?L. The reference range was not used to interpret this result as normal/abnormal . RBC (test code = 4.33 See_Comment [Automated 262-8) message] The sy stem which generated this result transmitted reference range : 4.26 - 5.52 10*6/?L. The reference range was not used to interpret this result as normal/abnormal . HGB (test code = 11.7 g/dL 12.2-16.4 L 718-7) HCT (test code = 35.5 % 38.4-49.3 L 4544-3) MCV (test code = 82.0 fL 81.7-95.6 787-2) MCH (test code = 27.0 pg 26.1-32.7 785-6) MCHC (test code = 33.0 g/dL 31.2-35.0 786-4) RDW-SD (test code = 44.9 fL 38.5-51.6 48812-5) RDW-CV (test code = 15.1 % 12.1-15.4 788-0) PLT (test code = 260 See_Comment [Automated 777-3) message] The sy stem which generated this result transmitted reference range : 150 - 328 10*3/ ?L. The reference r denise was not used to interpret this result as normal/abnormal . MPV (test code = 8.6 fL 9.8-13.0 L 31101-9) NRBC/100 WBC (test 0.0 See_Comment [Automat ed code = 7762225900) message] The system which generated this result transmitted reference range : 0.0 - 10.0 /100 WBCs. The refer ence range was not u sed to interpret th is result as normal/abnormal . NRBC x10^3 (test code See_Comment [Auto mated = 4737274249) message] The s ystem which generated this result transmitted reference range : 10*3/?L. The reference range was not used to interpret this result as normal/abnormal . GRAN MAT (NEUT) % 66.0 % (test code = 770-8) IMM GRAN % (test code 0.60 % = 0829858905) LYMPH % (test code = 22.4 % 736-9) MONO % (test code = 6.6 % 5905-5) EOS % (test code = 3.9 % 713-8) BASO % (test code = 0.5 % 706-2) GRAN MAT x10^3(ANC) 4.18 10*3/uL 1.99-6.95 (test code = 5020688860) IMM GRAN x10^3 (test 0.04 10*3/uL 0.00-0.06 code = 4535511689) LYMPH x10^3 (test code 1.42 10*3/uL 1.09-3.23 = 731-0) MONO x10^3 (test code 0.42 10*3/uL 0.36-1.02 = 742-7) EOS x10^3 (test code = 0.25 10*3/uL 0.06-0.53 711-2) BASO x10^3 (test code 0.03 10*3/uL 0.01-0.09 = 704-7) Lab Interpretation Abnormal (test code = 04415-4) [facility] [id number] 17:59:23 Test Item Value Reference Range Interpretation Comments APTT Patient (test 63 See_Comment H [Automat ed code = 3173-2) message] The system which generated this result transmitted reference range : 23 - 38 Seconds . The reference range was not used to interpr et this result as normal/abnormal . FRANK (test code = FRANK) The [facility] patient population mean normal value for aPTT is 30 seconds. Lab Interpretation Abnormal (test code = 41617-5) [facility] [id number] 17:56:44 Test Item Value Reference Range Interpretation Comments PROTIME PATIENT (test 16.7 See_Comment H [Auto mated message] code = 5964-2) The system wh ich generated this result transmitted ref erence range: 12.0 - 1 4.7 Seconds. The reference range was not used to int erpret this result as normal/abnormal . INR (test code = 6301-6) 1.4 Nor mal INR <1.1; Warfarin Therap eutic range 2.0 to 3. 0 or 2.5 to 3.5, dep ending upon the indica tions. Lab Interpretation (test Abnormal code = 75569-6) [facility] [id number] 17:52:45 Test Item Value Reference Range Interpretation Comments TROPONIN I (test code = 0.005 ng/mL <=0.034 6449998949) FRANK (test code = FRANK) Reference (Normal) Range (defined by the 99th percentile reference limit): <= 0.034 ng/mL Note: Cardiac troponin begins to rise 3-4 hours after the onset of ischemia. Repeat in 4-6 hours if the sample was drawn within 3-4 hours of the onset of the symptom and found normal. Diagnosis of myocardial injury is made with acute changes in cTn concentrations with at least one serial sample above the 99th percentile upper reference limit (URL), taken together with the patient's clinical presentation. Biotin has been reported to cause a negative bias, interpret results relative to patient's use of biotin. Lab Interpretation Normal (test code = 18179-5) [facility] [id number] 17:50:03 Test Item Value Reference Range Interpretation Comments NT-proBNP (test code = 631 pg/mL <=125 39413-1) FRANK (test code = FRANK) Result Indeterminate-Consid er causes of NT-proBNP elevation other than Heart failure such as acute coronary syndrome, pulmonary embolism, pulmonary hypertension, sepsis, stroke, and renal dysfunction. Lab Interpretation (test Abnormal code = 08942-2) [facility]OL[facility] ([id number])2022-11-22 17:43:42 Test Item Value Reference Range Interpretation Comments NA (test code = 136 mmol/L 135-145 1853254798) K (test code = 3.7 mmol/L 3.5-5.0 7910095042) CL (test code = 101 mmol/L 98-108 6378890640) CO2 TOTAL (test code = 29 mmol/L 23-31 0681937920) AGAP (test code = 6 2-16 2260891297) BUN (test code = 6 mg/dL 7-23 L 1796611479) GLUCOSE (test code = 171 mg/dL 70-110 H 2201262825) CREATININE (test code = 0.47 mg/dL 0.60-1.25 L 6173149548) TOTAL BILI (test code = 0.7 mg/dL 0.1-1.5 8619953784) CALCIUM (test code = 8.5 mg/dL 8.6-10.6 L 1043930613) T PROTEIN (test code = 6.8 g/dL 6.3-8.2 4169347213) ALBUMIN (test code = 3.9 g/dL 3.5-5.0 0653912409) ALK PHOS (test code = 69 U/L 34-122 8118081872) ALTv (test code = 9 U/L 5-50 1742-6) AST(SGOT) (test code = 28 U/L 13-40 8032768570) eGFR (test code = 175.1 mL/min/1.73m2 9869029153) FRANK (test code = FRANK) Association of [...] tests). Lab Interpretation Abnormal (test code = 29673-5) [facility] WITH [id number] 17:31:44 Test Item Value Reference Range Interpretation Comments WBC (test code = 7.71 See_Comment [Automated 5134-2) message] The sy stem which generated this result transmitted reference range : 4.20 - 10.70 10*3/?L. The reference range was not used to interpret this result as normal/abnormal . RBC (test code = 4.47 See_Comment [Automated 472-3) message] The sy stem which generated this result transmitted reference range : 4.26 - 5.52 10*6/?L. The reference range was not used to interpret this result as normal/abnormal . HGB (test code = 12.0 g/dL 12.2-16.4 L 718-7) HCT (test code = 36.8 % 38.4-49.3 L 4544-3) MCV (test code = 82.3 fL 81.7-95.6 787-2) MCH (test code = 26.8 pg 26.1-32.7 785-6) MCHC (test code = 32.6 g/dL 31.2-35.0 786-4) RDW-SD (test code = 46.0 fL 38.5-51.6 48354-0) RDW-CV (test code = 15.5 % 12.1-15.4 H 788-0) PLT (test code = 287 See_Comment [Automated 777-3) message] The sy stem which generated this result transmitted reference range : 150 - 328 10*3/ ?L. The reference r denise was not used to interpret this result as normal/abnormal . MPV (test code = 8.4 fL 9.8-13.0 L 22832-0) NRBC/100 WBC (test 0.0 See_Comment [Automat ed code = 5254588755) message] The system which generated this result transmitted reference range : 0.0 - 10.0 /100 WBCs. The refer ence range was not u sed to interpret th is result as normal/abnormal . NRBC x10^3 (test code See_Comment [Auto mated = 5688478019) message] The s ystem which generated this result transmitted reference range : 10*3/?L. The reference range was not used to interpret this result as normal/abnormal . GRAN MAT (NEUT) % 66.3 % (test code = 770-8) IMM GRAN % (test code 0.30 % = 9876342290) LYMPH % (test code = 21.7 % 736-9) MONO % (test code = 5.2 % 5905-5) EOS % (test code = 6.0 % 713-8) BASO % (test code = 0.5 % 706-2) GRAN MAT x10^3(ANC) 5.12 10*3/uL 1.99-6.95 (test code = 2932506187) IMM GRAN x10^3 (test 0.00-0.06 code = 6261489538) LYMPH x10^3 (test code 1.67 10*3/uL 1.09-3.23 = 731-0) MONO x10^3 (test code 0.40 10*3/uL 0.36-1.02 = 742-7) EOS x10^3 (test code = 0.46 10*3/uL 0.06-0.53 711-2) BASO x10^3 (test code 0.04 10*3/uL 0.01-0.09 = 704-7) Lab Interpretation Abnormal (test code = 38675-3) [facility] + Lactic [id number] 17:12:02 Test Item Value Reference Range Interpretation Comments PH (test code = 2) 7.36 7.35-7.45 PCO2 (test code = 50 See_Comment H [Automate d 7574887003) message] The sy stem which generated this result transmitted reference range : 35 - 45 mmHg. The reference range was not used to interpret this result as normal/abnormal . PO2 (test code = 99 See_Comment [Automated 0972552839) message] The sy stem which generated this result transmitted reference range : 80 - 100 mmHg. The reference range was not used to interpret this result as normal/abnormal . HCO3 (test code = 27 See_Comment H [Automate d 9946830200) message] The sy stem which generated this result transmitted reference range : 22 - 26 mEq/L. The reference range was not used to interpret this result as normal/abnormal . BE (test code = 1.1 See_Comment [Automated 9187907376) message] The sy stem which generated this result transmitted reference range : -3.0 - 3.0 mEq/ L. The reference r denise was not used to interpret this result as normal/abnormal . THB (test code = 12.7 g/dL 13.5-18.0 L 9428845981) %O2HB (test code = 96.3 % 94.0-99.0 1212690488) %COHB ART (test code = 1.3 % 0.0-1.5 8855216427) %METHB ART (test code = 0.3 % 0.4-1.5 L 2602307955) VOL%O2 ART (test code = 17.3 % 15.0-23.0 2156372464) NA (test code = 136 mmol/L 135-145 2516890821) K+ (test code = 3.7 mmol/L 3.5-5.0 9310830660) AC CA IONZ (test code = 4.70 mg/dL 4.50-5.30 8151518675) GLUCOSE (test code = 178 mg/dL 70-110 H 7341857589) LACTIC ACID (test code 1.63 mmol/L 0.50-2.20 = 6636494093) Lab Interpretation Abnormal (test code = 73068-8) [facility] [id number] 17:53:10 Test Item Value Reference Range Interpretation Comments Course ID (test code = C1 5706) Course Start Date (test 2018-11-22 @16:32 code = 5707) Treatment Elapsed Days 10 (test code = 5709) Treatment Dates (test Course End Date: code = 5685) 2018-12-06 @12:52First Treatment Date: 2018-11-26 @13:49Last Treatment Date: 2018-12-06 @13:31 Reference Point ID (test Iso_check code = 5710) Dosage Given to Date in 46.243691 Gy (test code = 5711) Plan ID (test code = SBRT_Spine 5713) Plan Name (test code = SBRT_Spine 5714) Fractions Treated to 5 of 5 Date (test code = 5715) Prescribed Dose Per 8 Fraction in Gy (test code = 5716) Prescription Dose in cGy 4000 (test code = 5717) [facility] [id number] 17:53:10 Test Item Value Reference Range Interpretation Comments Course ID (test code = C1 5706) Course Start Date (test 2018-11-22 @16:32 code = 5707) Treatment Elapsed Days 10 (test code = 5709) Treatment Dates (test Course End Date: code = 5685) 2018-12-06 @12:52First Treatment Date: 2018-11-26 @13:49Last Treatment Date: 2018-12-06 @13:31 Reference Point ID (test Iso_check code = 5710) Dosage Given to Date in 46.634754 Gy (test code = 5711) Plan ID (test code = SBRT_Spine 5713) Plan Name (test code = SBRT_Spine 5714) Fractions Treated to 5 of 5 Date (test code = 5715) Prescribed Dose Per 8 Fraction in Gy (test code = 5716) Prescription Dose in cGy 4000 (test code = 5717) [facility] Pre/Post [id number] 13:15:02 Test Item Value Reference Range Interpretation [...] Courtney MD (2024) on 10/01/2021 8:15:00 AM [facility] Pre/Post [id number] 13:15:02 Test Item Value Reference Range Interpretation [...] Courtney MD (2024) on 10/01/2021 8:15:00 AM [facility] Pre/Post [id number] 13:15:02 Test Item Value Reference Range Interpretation Comments Ventricular rate (test 60 code = 253) Atrial rate (test code = 60 255) OK interval (test code = 214 266) QRSD [...] Courtney MD (2024) on 10/01/2021 8:15:00 AM [facility] Pre/Post [id number] 13:15:02 Test Item Value Reference Range Interpretation Comments Ventricular rate (test 60 code = 253) Atrial rate (test code = 60 255) OK interval (test code = 214 266) QRSD [...] Courtney MD (2024) on 10/01/2021 8:15:00 AM [facility] Pre/Post [id number] 13:15:02 Test Item Value Reference Range Interpretation [...] Courtney MD (2024) on 10/01/2021 8:15:00 AM [facility] Pre/Post [id number] 13:15:02 Test Item Value Reference Range Interpretation [...] Courtney MD (2024) on 10/01/2021 8:15:00 AM [facility] Pre/Post [id number] 13:15:02 Test Item Value Reference Range Interpretation [...] Courtney MD (2024) on 10/01/2021 8:15:00 AM [facility] Pre/Post [id number] 13:15:02 Test Item Value Reference Range Interpretation [...] Courtney MD (2024) on 10/01/2021 8:15:00 AM [facility] Pre/Post [id number] 13:15:02 Test Item Value Reference Range Interpretation [...] Courtney MD (2024) on 10/01/2021 8:15:00 AM [facility] Pre/Post [id number] 13:15:02 Test Item Value Reference Range Interpretation [...] Courtney MD (2024) on 10/01/2021 8:15:00 AM [facility] Pre/Post [id number] 13:15:02 Test Item Value Reference Range Interpretation [...] Courtney MD (2024) on 10/01/2021 8:15:00 AM [facility] Pre/Post [id number] 13:15:02 Test Item Value Reference Range Interpretation [...] Courtney MD (2024) on 10/01/2021 8:15:00 AM [facility] Pre/Post [id number] 13:15:02 Test Item Value Reference Range Interpretation [...] Courtney MD (2024) on 10/01/2021 8:15:00 AM [facility] Pre/Post [id number] 13:15:02 Test Item Value Reference Range Interpretation [...] Courtney MD (2024) on 10/01/2021 8:15:00 AM [facility] Pre/Post [id number] 13:15:02 Test Item Value Reference Range Interpretation [...] Courtney MD (2024) on 10/01/2021 8:15:00 AM [facility] Pre/Post [id number] 13:15:02 Test Item Value Reference Range Interpretation [...] Courtney MD (2024) on 10/01/2021 8:15:00 AM [facility] Pre/Post [id number] 13:15:02 Test Item Value Reference Range Interpretation [...] Courtney MD (2024) on 10/01/2021 8:15:00 AM [facility] Pre/Post [id number] 13:15:02 Test Item Value Reference Range Interpretation [...] Courtney MD (2024) on 10/01/2021 8:15:00 AM [facility] Pre/Post [id number] 13:15:02 Test Item Value Reference Range Interpretation [...] Courtney MD (2024) on 10/01/2021 8:15:00 AM [facility]2022-07-13 17:27:00 Test Item Value Reference Range Interpretation Comments POC glucose (test code 225 mg/dL 65-99 H Opera tor Name: = 96347-7) Compa oakes ID: [id number] able: RN Notified Lab Interpretation Abnormal (test code = 69827-0) [facility]2022-07-13 17:27:00 Test Item Value Reference Range Interpretation Comments POC glucose (test code 225 mg/dL 65-99 H Opera tor Name: = 94554-8) Compa oakes ID: [id number] able: RN Notified Lab Interpretation Abnormal (test code = 18913-7) [facility]2022-07-13 17:27:00 Test Item Value Reference Range Interpretation Comments POC glucose (test code 225 mg/dL 65-99 H Opera tor Name: = 17978-2) Compa oakes ID: [id number] able: RN Notified Lab Interpretation Abnormal (test code = 43490-6) [place] [address]35[address]-07-13 17:27:00 Test Item Value Reference Range Interpretation Comments POC glucose (test code 225 mg/dL 65-99 H Opera tor Name: = 17521-7) Compa oakes ID: [id number] able: RN Notified Lab Interpretation Abnormal (test code = 61480-2) [facility]2022-07-13 17:27:00 Test Item Value Reference Range Interpretation Comments POC glucose (test code 225 mg/dL 65-99 H Opera tor Name: = 95312-6) Compa oakes ID: [id number] able: RN Notified Lab Interpretation Abnormal (test code = 87340-3) [facility]2022-07-13 17:27:00 Test Item Value Reference Range Interpretation Comments POC glucose (test code 225 mg/dL 65-99 H Opera tor Name: = 83485-1) Compa oakes ID: [id number] able: RN Notified Lab Interpretation Abnormal (test code = 22060-7) [facility]2022-07-13 17:27:00 Test Item Value Reference Range Interpretation Comments POC glucose (test code 225 mg/dL 65-99 H Opera tor Name: = 01366-6) Compa oakes ID: [id number] able: RN Notified Lab Interpretation Abnormal (test code = 22032-9) [facility]2022-07-13 17:27:00 Test Item Value Reference Range Interpretation Comments POC glucose (test code 225 mg/dL 65-99 H Opera tor Name: = 61296-2) Compa oakes ID: [id number] able: RN Notified Lab Interpretation Abnormal (test code = 22832-0) [facility]2022-07-13 17:27:00 Test Item Value Reference Range Interpretation Comments POC glucose (test code 225 mg/dL 65-99 H Opera tor Name: = 06170-9) Compa oakes ID: [id number] able: RN Notified Lab Interpretation Abnormal (test code = 27945-2) [facility]2022-07-13 17:27:00 Test Item Value Reference Range Interpretation Comments POC glucose (test code 225 mg/dL 65-99 H Opera tor Name: = 24693-8) Compa oakes ID: [id number] able: RN Notified Lab Interpretation Abnormal (test code = 62736-3) [facility] [id number] 17:27:00 Test Item Value Reference Range Interpretation Comments POC glucose (test code 225 mg/dL 65-99 H Opera tor Name: = 81916-7) Compa oakes ID: [id number] able: RN Notified Lab Interpretation Abnormal (test code = 31608-2) [facility]2022-07-13 17:27:00 Test Item Value Reference Range Interpretation Comments POC glucose (test code 225 mg/dL 65-99 H Opera tor Name: = 85076-6) Compa oakes ID: [id number] able: RN Notified Lab Interpretation Abnormal (test code = 28159-9) [facility]2022-07-13 17:27:00 Test Item Value Reference Range Interpretation Comments POC glucose (test code 225 mg/dL 65-99 H Opera tor Name: = 81256-4) Compa oakes ID: [id number] able: RN Notified Lab Interpretation Abnormal (test code = 54940-7) [facility]2022-07-13 17:27:00 Test Item Value Reference Range Interpretation Comments POC glucose (test code 225 mg/dL 65-99 H Opera tor Name: = 79887-5) Compa oakes ID: [id number] able: RN Notified Lab Interpretation Abnormal (test code = 74309-9) [facility]2022-07-13 17:27:00 Test Item Value Reference Range Interpretation Comments POC glucose (test code 225 mg/dL 65-99 H Opera tor Name: = 96438-6) Compa oakes ID: [id number] able: RN Notified Lab Interpretation Abnormal (test code = 27435-3) [facility]2022-07-13 17:27:00 Test Item Value Reference Range Interpretation Comments POC glucose (test code 225 mg/dL 65-99 H Opera tor Name: = 05818-7) [facility] ID: [id number] able: RN Notified Lab Interpretation Abnormal (test code = 11070-9) [facility] [id number] 17:27:00 Test Item Value Reference Range Interpretation Comments POC glucose (test code 225 mg/dL 65-99 H Opera tor Name: = 43238-4) Compa MonteiroLuly oakes ID: [id number] able: RN Notified Lab Interpretation Abnormal (test code = 62679-5) [facility] [id number] 17:27:00 Test Item Value Reference Range Interpretation Comments POC glucose (test code 225 mg/dL 65-99 H Opera tor Name: = 25243-0) Compa Pollard maxzackary ID: [id number] able: RN Notified Lab Interpretation Abnormal (test code = 55739-9) [facility]2022-07-13 17:27:00 Test Item Value Reference Range Interpretation Comments POC glucose (test code 225 mg/dL 65-99 H Opera tor Name: = 69775-1) Compa Pollard maxzackary ID: [id number] able: RN Notified Lab Interpretation Abnormal (test code = 26575-5) [facility] [Presence] in Respiratory specimen by SJ with probe [id number] 16:13:23 Test Item Value Reference Range Interpretation Comments SARS-CoV-2 (COVID-19) RNA Not detected [Presence] in Respiratory specimen by SJ with probe detection (test code = 44443-7) Whether patient is employed in a Unknown healthcare setting (test code = 99252-2) Whether the patient has symptoms Unknown related to condition of interest (test code = 55000-5) Whether the patient was Unknown hospitalized for condition of interest (test code = 91710-1) Whether the patient was admitted Unknown to intensive care unit (ICU) for condition of interest (test code = 13666-2) Whether patient resides in a Unknown congregate care setting (test code = 12537-6) status (test code = Unknown 62323-4) Date and time of symptom onset Unknown (test code = 83722-3) [address]2022-07-11 01:10:55 Test Item Value Reference Range [...] Iglesias MD (2064) on 09/26/2021 8:10:[address]2022-07-11 01:10:55 Test Item Value Reference Range [...] Iglesias MD (2064) on 09/26/2021 8:10:[address]2022-07-11 01:10:55 Test Item Value Reference Range Interpretation Comments Ventricular rate (test 39 code = 253) Atrial rate (test code 39 = 255) OK interval (test code 174 = 266) QRSD [...] Iglesias MD (2064) on 09/26/2021 8:10:[address]2022-07-11 01:10:55 Test Item Value Reference Range Interpretation Comments Ventricular rate (test 39 code = 253) Atrial rate (test code 39 = 255) OK interval (test code 174 = 266) QRSD [...] Iglesias MD (2064) on 09/26/2021 8:10:48 PM [place] [address] [id number] 01:10:55 Test Item Value Reference Range Interpretation [...] Iglesias MD (2064) on 09/26/2021 8:10:[address]2022-07-11 01:10:55 Test Item Value Reference Range [...] Iglesias MD (2064) on 09/26/2021 8:10:[address]2022-07-11 01:10:55 Test Item Value Reference Range [...] Iglesias MD (2064) on 09/26/2021 8:10:[address]2022-07-11 01:10:55 Test Item Value Reference Range [...] Iglesias MD (2064) on 09/26/2021 8:10:[address]2022-07-11 01:10:55 Test Item Value Reference Range [...] Iglesias MD (2064) on 09/26/2021 8:10:[address]2022-07-11 01:10:55 Test Item Value Reference Range [...] Iglesias MD (2064) on 09/26/2021 8:10:[address]2022-07-11 01:10:55 Test Item Value Reference Range [...] Iglesias MD (2064) on 09/26/2021 8:10:[address]2022-07-11 01:10:55 Test Item Value Reference Range [...] Iglesias MD (2064) on 09/26/2021 8:10:[address]2022-07-11 01:10:55 Test Item Value Reference Range [...] Iglesias MD (2064) on 09/26/2021 8:10:48 PM [place] [address] [id number] 01:10:55 Test Item Value Reference Range Interpretation [...] Iglesias MD (2064) on 09/26/2021 8:10:[address]2022-07-11 01:10:55 Test Item Value Reference Range [...] Iglesias MD (2064) on 09/26/2021 8:10:[address]2022-07-11 01:10:55 Test Item Value Reference Range [...] Iglesias MD (2064) on 09/26/2021 8:10:[address]2022-07-11 01:10:55 Test Item Value Reference Range [...] Iglesias MD (2064) on 09/26/2021 8:10:[address]2022-07-11 01:10:55 Test Item Value Reference Range [...] Iglesias MD (2064) on 09/26/2021 8:10:[address]2022-07-11 01:10:55 Test Item Value Reference Range [...] Iglesias MD (2064) on 09/26/2021 8:10:[address] [facility] [place] [place]xTransthoracic Echocardiogram Complete, (w Contrast, Strain and 3D if needed)2021-09-22 23:49:22 Test Item Value Reference Range Interpretation Comments Ao Root Diameter (test 3.52 cm code = 7085260749) AoV Area, Vmax (test 2.34 cm2 code = 8208826151) AoV Area, VTI (test 2.60 cm2 code = 1563917768) AoV Mean PG (test code 3.29 mmHg = 4572242602) AoV Peak PG (test code 7.75 mmHg = 8222209127) AoV Vmax (test code = 1.58 m/s 9637429768) AoV VTI (test code = 0.27 m 3404490152) IVS,d (test code = 1.24 cm 0.6-1.0 A 4737609897) IVS/LVPW,2D (test code 0.98 = 2235060778) Left Atrium Dimension 4.50 cm Anterior (test code = 5098062273) LV,d (test code = 5.53 cm 6657910261) LV EF,2D (test code = 61.39 % 2469926391) LV,s (test code = 4.03 cm 8337264176) LVOT area (test code = 3.17 cm2 4228115877) LVOT Diam,S (test code 2.01 cm = 7787817286) LVOT Vmax (test code = 1.02 m/s 2384097047) LVOT VTI (test code = 0.23 m 7996007095) LVPWD,d (test code = 1.26 cm 0.6-1.0 A 8887623100) PV Pk Grad (test code 7.75 mmHg = 7308966475) PV VMAX (test code = 1.39 m/s 0429710560) RVOT Vmax (test code = 0.78 m/s 6278928299) TR Vpeak (test code = 2.70 m/s 4641227621) MV E A ratio (test 0.78 code = 3399737261) TR pk grad (test code 14.89 mmHg = 6724660715) MR Vmax (test code = 3.82 m/s 4718998557) E wave decelartion 215.97 msec time (test code = 7224829482) MV Peak A Jese (test 0.80 m/s code = 0298108399) MV valve area p 1/2 3.51 cm2 method (test code = 0515638462) MV Peak E Jese (test 0.63 m/s code = 7884937092) MV stenosis pressure 62.63 ms 1/2 time (test code = 5968632492) LVOT stroke volume 0.73 ml (test code = 2875325300) AV LVOT peak gradient 4.20 mmHg (test code = 8341605039) Ascending aorta (test 3.62 cm code = 0086449665) Ao Root Diameter (test 3.52 cm code = 8147346941) MV mean gradient (test 1.49 mmHg code = 9585918548) LV SYS VOL (test code 71.15 ml 21-61 A = 1715019006) LV HANEY VOL (test code 149.32 ml 62-150 = 0636700213) LA area s A4C (test 13.11 cm2 code = 5266175110) LV SV Teich 2D (test 78.18 ml code = 0030346316) LV Vol s Teich PSAX 71.15 ml (test code = 8139912867) MR peak grad (test 3.60 mmHg code = 2860487517) MV Vmax (test code = 0.95 m 7310424985) MV VTI Tips (test code 0.32 m = 1818499235) RVOT pk grad (test 2.42 mmHg code = 1391971440) AoV Vmn (test code = 0.85 m/s 7837633715) LV FS Teich 2D (test 27.18 code = 2171131483) MV AE ratio (test code 1.28 = 9918214772) LV FS Cube 2D (test 27.18 code = 6125581107) LVOT Vmn (test code = 0.66 2416754101) Aov area Vmn (test 2.37 cm2 code = 0118006590) LVOT mean grad (test 1.99 mmHg code = 2835142505) MAX Pred HR (test code 147.89 = 8205672378) 85 of MPHR (test code 125.70 = 7171681550) Calc MPHR (test code = 147.89 bpm 0119404110) LV SV Cube 2D (test 103.85 ml code = 1803451986) LV vol d cube 2D (test 169.18 ml code = 5160370322) LV vol s cube 2D (test 65.33 ml code = 1447728664) MV Decel slope (test 2.91 m/s2 code = 5584213316) Pred Exer Dur R1 (test 6.85 code = 8662610339) Pred METS R1 (test 7.18 code = 8632030512) LA Vol MOD A4C (test 25.42 ml code = 7630520958) E miranda sept (test 0.10 code = 2109114558) E prime lat (test code 0.15 = 1959255813) Velocity Ratio (V1/V2) 0.65 m/s (test code = 4689) EF (test code = 52 % 0523304841) E/A ratio (test code = 0.79 5886047432) LVOT VTI (CM) (test 23.00 cm code = 2595719525) FRANK (test code = FRANK) Left Ventricle: [...] obtained. Lab Interpretation Abnormal (test code = 64434-4) [facility] [Presence] in Respiratory specimen by SJ with probe [id number] 18:25:31 Test Item Value Reference Range Interpretation Comments SARS-CoV-2 (COVID-19) RNA Not detected [Presence] in Respiratory specimen by SJ with probe detection (test code = 44598-9) Whether patient is employed in a Unknown healthcare setting (test code = 12009-6) Whether the patient has symptoms Unknown related to condition of interest (test code = 94852-1) Whether the patient was Unknown hospitalized for condition of interest (test code = 20018-9) Whether the patient was admitted Unknown to intensive care unit (ICU) for condition of interest (test code = 73551-6) Whether patient resides in a Unknown congregate care setting (test code = 41028-9) status (test code = Unknown 35130-7) Date and time of symptom onset Unknown (test code = 37698-4) [facility] ED Preliminary Interpretation - Not an [id number] 17:16:17 Test Item Value Reference Range Interpretation Comments FRANK (test code = FRANK) Ramon Yi MD 09/21/2021 2:20 [facility] Preliminary Interpretation - Not an OrderPerformed by: Ramon Yi, MDAuthorized by: Ramon Yi MD ECG reviewed by ED Physician in the absence of a steel tier: yes Interpretation: Interpretation: abnormal Quality: Tracing quality: Limited by artifactRate: ECG rate: 70 ECG rate assessment: normal Rhythm: Rhythm: sinus rhythm Ectopy: Ectopy: none QRS: QRS axis: Normal QRS intervals: NormalConduction: Conduction: normal ST segments: ST segments: NormalT waves: T waves: flattening and inverted Flattening: V1, V2, V3 and V4 Inverted: I and aVL Lab Interpretation Abnormal (test code = 01474-7) [facility] ED Preliminary Interpretation - Not an [id number] 17:16:17 Test Item Value Reference Range Interpretation Comments FRANK (test code = FRANK) Ramon Yi MD 09/21/2021 2:20 [facility] Preliminary Interpretation - Not an OrderPerformed by: Ramon Yi, MDAuthorized by: Ramon Yi MD ECG reviewed by ED Physician in the absence of a steel tier: yes Interpretation: Interpretation: abnormal Quality: Tracing quality: Limited by artifactRate: ECG rate: 70 ECG rate assessment: normal Rhythm: Rhythm: sinus rhythm Ectopy: Ectopy: none QRS: QRS axis: Normal QRS intervals: NormalConduction: Conduction: normal ST segments: ST segments: NormalT waves: T waves: flattening and inverted Flattening: V1, V2, V3 and V4 Inverted: I and aVL Lab Interpretation Abnormal (test code = 15697-5) [facility] Preliminary Interpretation - Not an [id number] 17:16:17 Test Item Value Reference Range Interpretation Comments FRANK (test code = FRANK) Ramon Yi MD 09/21/2021 2:20 [facility] Preliminary Interpretation - Not an OrderPerformed by: Ramon Yi, MDAuthorized by: Ramon Yi MD ECG reviewed by ED Physician in the absence of a steel tier: yes Interpretation: Interpretation: abnormal Quality: Tracing quality: Limited by artifactRate: ECG rate: 70 ECG rate assessment: normal Rhythm: Rhythm: sinus rhythm Ectopy: Ectopy: none QRS: QRS axis: Normal QRS intervals: NormalConduction: Conduction: normal ST segments: ST segments: NormalT waves: T waves: flattening and inverted Flattening: V1, V2, V3 and V4 Inverted: I and aVL Lab Interpretation Abnormal (test code = 41520-0) [facility] Preliminary Interpretation - Not an [id number] 17:16:17 Test Item Value Reference Range Interpretation Comments FRANK (test code = FRANK) Ramon Yi MD 09/21/2021 2:20 [facility] Preliminary Interpretation - Not an OrderPerformed by: Ramon Yi, MDAuthorized by: Ramon Yi MD ECG reviewed by ED Physician in the absence of a steel tier: yes Interpretation: Interpretation: abnormal Quality: Tracing quality: Limited by artifactRate: ECG rate: 70 ECG rate assessment: normal Rhythm: Rhythm: sinus rhythm Ectopy: Ectopy: none QRS: QRS axis: Normal QRS intervals: NormalConduction: Conduction: normal ST segments: ST segments: NormalT waves: T waves: flattening and inverted Flattening: V1, V2, V3 and V4 Inverted: I and aVL Lab Interpretation Abnormal (test code = 65172-5) [facility] Preliminary Interpretation - Not an [id number] 17:16:17 Test Item Value Reference Range Interpretation Comments FRANK (test code = FRANK) Ramon Yi MD 09/21/2021 2:20 [facility] Preliminary Interpretation - Not an OrderPerformed by: Ramon Yi, MDAuthorized by: Ramon Yi MD ECG reviewed by ED Physician in the absence of a steel tier: yes Interpretation: Interpretation: abnormal Quality: Tracing quality: Limited by artifactRate: ECG rate: 70 ECG rate assessment: normal Rhythm: Rhythm: sinus rhythm Ectopy: Ectopy: none QRS: QRS axis: Normal QRS intervals: NormalConduction: Conduction: normal ST segments: ST segments: NormalT waves: T waves: flattening and inverted Flattening: V1, V2, V3 and V4 Inverted: I and aVL Lab Interpretation Abnormal (test code = 39370-8) [facility] Preliminary Interpretation - Not an [id number] 17:16:17 Test Item Value Reference Range Interpretation Comments FRANK (test code = FRANK) Ramon Yi MD 09/21/2021 2:20 [facility] Preliminary Interpretation - Not an OrderPerformed by: Ramon Yi, MDAuthorized by: Ramon Yi MD ECG reviewed by ED Physician in the absence of a steel tier: yes Interpretation: Interpretation: abnormal Quality: Tracing quality: Limited by artifactRate: ECG rate: 70 ECG rate assessment: normal Rhythm: Rhythm: sinus rhythm Ectopy: Ectopy: none QRS: QRS axis: Normal QRS intervals: NormalConduction: Conduction: normal ST segments: ST segments: NormalT waves: T waves: flattening and inverted Flattening: V1, V2, V3 and V4 Inverted: I and aVL Lab Interpretation Abnormal (test code = 94015-9) [facility] Preliminary Interpretation - Not an [id number] 17:16:17 Test Item Value Reference Range Interpretation Comments FRANK (test code = FRANK) Ramon Yi MD 09/21/2021 2:20 [facility] Preliminary Interpretation - Not an OrderPerformed by: Ramon Yi MDAuthorized by: Ramon Yi MD ECG reviewed by ED Physician in the absence of a steel tier: yes Interpretation: Interpretation: abnormal Quality: Tracing quality: Limited by artifactRate: ECG rate: 70 ECG rate assessment: normal Rhythm: Rhythm: sinus rhythm Ectopy: Ectopy: none QRS: QRS axis: Normal QRS intervals: NormalConduction: Conduction: normal ST segments: ST segments: NormalT waves: T waves: flattening and inverted Flattening: V1, V2, V3 and V4 Inverted: I and aVL Lab Interpretation Abnormal (test code = 17471-3) [facility] Preliminary Interpretation - Not an [id number] 17:16:17 Test Item Value Reference Range Interpretation Comments FRANK (test code = FRANK) Ramon Yi MD 09/21/2021 2:20 [facility] Preliminary Interpretation - Not an OrderPerformed by: Ramon Yi, PAMELAuthorized by: Ramon Yi MD ECG reviewed by ED Physician in the absence of a steel tier: yes Interpretation: Interpretation: abnormal Quality: Tracing quality: Limited by artifactRate: ECG rate: 70 ECG rate assessment: normal Rhythm: Rhythm: sinus rhythm Ectopy: Ectopy: none QRS: QRS axis: Normal QRS intervals: NormalConduction: Conduction: normal ST segments: ST segments: NormalT waves: T waves: flattening and inverted Flattening: V1, V2, V3 and V4 Inverted: I and aVL Lab Interpretation Abnormal (test code = 40041-3) [facility] Preliminary Interpretation - Not an [id number] 17:16:17 Test Item Value Reference Range Interpretation Comments FRANK (test code = FRANK) Ramon Yi MD 09/21/2021 2:20 [facility] Preliminary Interpretation - Not an OrderPerformed by: Ramon Yi, MDAuthorized by: Ramon Yi MD ECG reviewed by ED Physician in the absence of a steel tier: yes Interpretation: Interpretation: abnormal Quality: Tracing quality: Limited by artifactRate: ECG rate: 70 ECG rate assessment: normal Rhythm: Rhythm: sinus rhythm Ectopy: Ectopy: none QRS: QRS axis: Normal QRS intervals: NormalConduction: Conduction: normal ST segments: ST segments: NormalT waves: T waves: flattening and inverted Flattening: V1, V2, V3 and V4 Inverted: I and aVL Lab Interpretation Abnormal (test code = 50183-4) [facility] Preliminary Interpretation - Not an [id number] 17:16:17 Test Item Value Reference Range Interpretation Comments FRANK (test code = FRANK) Ramon Yi MD 09/21/2021 2:20 [facility] Preliminary Interpretation - Not an OrderPerformed by: Ramon Yi, MDAuthorized by: Ramon Yi MD ECG reviewed by ED Physician in the absence of a steel tier: yes Interpretation: Interpretation: abnormal Quality: Tracing quality: Limited by artifactRate: ECG rate: 70 ECG rate assessment: normal Rhythm: Rhythm: sinus rhythm Ectopy: Ectopy: none QRS: QRS axis: Normal QRS intervals: NormalConduction: Conduction: normal ST segments: ST segments: NormalT waves: T waves: flattening and inverted Flattening: V1, V2, V3 and V4 Inverted: I and aVL Lab Interpretation Abnormal (test code = 64658-2) [facility] Preliminary Interpretation - Not an [id number] 17:16:17 Test Item Value Reference Range Interpretation Comments FRANK (test code = FRANK) Ramon Yi MD 09/21/2021 2:20 [facility] Preliminary Interpretation - Not an OrderPerformed by: Ramon Yi, MDAuthorized by: Ramon Yi MD ECG reviewed by ED Physician in the absence of a steel tier: yes Interpretation: Interpretation: abnormal Quality: Tracing quality: Limited by artifactRate: ECG rate: 70 ECG rate assessment: normal Rhythm: Rhythm: sinus rhythm Ectopy: Ectopy: none QRS: QRS axis: Normal QRS intervals: NormalConduction: Conduction: normal ST segments: ST segments: NormalT waves: T waves: flattening and inverted Flattening: V1, V2, V3 and V4 Inverted: I and aVL Lab Interpretation Abnormal (test code = 78111-1) [facility] Preliminary Interpretation - Not an [id number] 17:16:17 Test Item Value Reference Range Interpretation Comments FRANK (test code = FRANK) Ramon Yi MD 09/21/2021 2:20 [facility] Preliminary Interpretation - Not an OrderPerformed by: Ramon Yi, PAMELAuthorized by: Ramon Yi MD ECG reviewed by ED Physician in the absence of a steel tier: yes Interpretation: Interpretation: abnormal Quality: Tracing quality: Limited by artifactRate: ECG rate: 70 ECG rate assessment: normal Rhythm: Rhythm: sinus rhythm Ectopy: Ectopy: none QRS: QRS axis: Normal QRS intervals: NormalConduction: Conduction: normal ST segments: ST segments: NormalT waves: T waves: flattening and inverted Flattening: V1, V2, V3 and V4 Inverted: I and aVL Lab Interpretation Abnormal (test code = 44043-7) [facility] Preliminary Interpretation - Not an [id number] 17:16:17 Test Item Value Reference Range Interpretation Comments FRANK (test code = FRANK) Ramon Yi MD 09/21/2021 2:20 [facility] Preliminary Interpretation - Not an OrderPerformed by: Ramon Yi, MDAuthorized by: Ramon Yi MD ECG reviewed by ED Physician in the absence of a steel tier: yes Interpretation: Interpretation: abnormal Quality: Tracing quality: Limited by artifactRate: ECG rate: 70 ECG rate assessment: normal Rhythm: Rhythm: sinus rhythm Ectopy: Ectopy: none QRS: QRS axis: Normal QRS intervals: NormalConduction: Conduction: normal ST segments: ST segments: NormalT waves: T waves: flattening and inverted Flattening: V1, V2, V3 and V4 Inverted: I and aVL Lab Interpretation Abnormal (test code = 93559-6) [facility] Preliminary Interpretation - Not an [id number] 17:16:17 Test Item Value Reference Range Interpretation Comments FRANK (test code = FRANK) Ramon Yi MD 09/21/2021 2:20 [facility] Preliminary Interpretation - Not an OrderPerformed by: Ramon Yi, MDAuthorized by: Ramon Yi MD ECG reviewed by ED Physician in the absence of a steel tier: yes Interpretation: Interpretation: abnormal Quality: Tracing quality: Limited by artifactRate: ECG rate: 70 ECG rate assessment: normal Rhythm: Rhythm: sinus rhythm Ectopy: Ectopy: none QRS: QRS axis: Normal QRS intervals: NormalConduction: Conduction: normal ST segments: ST segments: NormalT waves: T waves: flattening and inverted Flattening: V1, V2, V3 and V4 Inverted: I and aVL Lab Interpretation Abnormal (test code = 89103-1) [facility] Preliminary Interpretation - Not an [id number] 17:16:17 Test Item Value Reference Range Interpretation Comments FRANK (test code = FRANK) Ramon Yi MD 09/21/2021 2:20 [facility] Preliminary Interpretation - Not an OrderPerformed by: Ramon Yi, PAMELAuthorized by: Ramon Yi MD ECG reviewed by ED Physician in the absence of a steel tier: yes Interpretation: Interpretation: abnormal Quality: Tracing quality: Limited by artifactRate: ECG rate: 70 ECG rate assessment: normal Rhythm: Rhythm: sinus rhythm Ectopy: Ectopy: none QRS: QRS axis: Normal QRS intervals: NormalConduction: Conduction: normal ST segments: ST segments: NormalT waves: T waves: flattening and inverted Flattening: V1, V2, V3 and V4 Inverted: I and aVL Lab Interpretation Abnormal (test code = 96809-8) [facility] Preliminary Interpretation - Not an [id number] 17:16:17 Test Item Value Reference Range Interpretation Comments FRANK (test code = FRANK) Ramon Yi MD 09/21/2021 2:20 [facility] Preliminary Interpretation - Not an OrderPerformed by: Ramon Yi, MDAuthorized by: Ramon Yi MD ECG reviewed by ED Physician in the absence of a steel tier: yes Interpretation: Interpretation: abnormal Quality: Tracing quality: Limited by artifactRate: ECG rate: 70 ECG rate assessment: normal Rhythm: Rhythm: sinus rhythm Ectopy: Ectopy: none QRS: QRS axis: Normal QRS intervals: NormalConduction: Conduction: normal ST segments: ST segments: NormalT waves: T waves: flattening and inverted Flattening: V1, V2, V3 and V4 Inverted: I and aVL Lab Interpretation Abnormal (test code = 70639-5) [facility] Preliminary Interpretation - Not an [id number] 17:16:17 Test Item Value Reference Range Interpretation Comments FRANK (test code = FRANK) Ramon Yi MD 09/21/2021 2:20 [facility] Preliminary Interpretation - Not an OrderPerformed by: Ramon Yi, MDAuthorized by: Ramon Yi MD ECG reviewed by ED Physician in the absence of a steel tier: yes Interpretation: Interpretation: abnormal Quality: Tracing quality: Limited by artifactRate: ECG rate: 70 ECG rate assessment: normal Rhythm: Rhythm: sinus rhythm Ectopy: Ectopy: none QRS: QRS axis: Normal QRS intervals: NormalConduction: Conduction: normal ST segments: ST segments: NormalT waves: T waves: flattening and inverted Flattening: V1, V2, V3 and V4 Inverted: I and aVL Lab Interpretation Abnormal (test code = 25074-5) [facility] Preliminary Interpretation - Not an [id number] 17:16:17 Test Item Value Reference Range Interpretation Comments FRANK (test code = FRANK) Ramon Yi MD 09/21/2021 2:20 [facility] Preliminary Interpretation - Not an OrderPerformed by: Ramon Yi, MDAuthorized by: Ramon Yi MD ECG reviewed by ED Physician in the absence of a steel tier: yes Interpretation: Interpretation: abnormal Quality: Tracing quality: Limited by artifactRate: ECG rate: 70 ECG rate assessment: normal Rhythm: Rhythm: sinus rhythm Ectopy: Ectopy: none QRS: QRS axis: Normal QRS intervals: NormalConduction: Conduction: normal ST segments: ST segments: NormalT waves: T waves: flattening and inverted Flattening: V1, V2, V3 and V4 Inverted: I and aVL Lab Interpretation Abnormal (test code = 80498-8) [facility] Preliminary Interpretation - Not an [id number] 17:16:17 Test Item Value Reference Range Interpretation Comments FRANK (test code = FRANK) Ramon Yi MD 09/21/2021 2:20 [facility] Preliminary Interpretation - Not an OrderPerformed by: Ramon Yi, MDAuthorized by: Ramon Yi MD ECG reviewed by ED Physician in the absence of a steel tier: yes Interpretation: Interpretation: abnormal Quality: Tracing quality: Limited by artifactRate: ECG rate: 70 ECG rate assessment: normal Rhythm: Rhythm: sinus rhythm Ectopy: Ectopy: none QRS: QRS axis: Normal QRS intervals: NormalConduction: Conduction: normal ST segments: ST segments: NormalT waves: T waves: flattening and inverted Flattening: V1, V2, V3 and V4 Inverted: I and aVL Lab Interpretation Abnormal (test code = 41381-2) [facility] [id number] 16:33:01 Test Item Value Reference Range Interpretation Comments TROPONIN I (test <0.012 See_Comment [Automated code = 5779136670) message] The system which generated this result [...] ? Lab Interpretation Normal (test code = 23672-7) [facility] [id number] 16:30:00 Test Item Value Reference Range Interpretation Comments NT-proBNP (test code 185 pg/mL See_Comment H [Autom ated = 8682829560) message] The system which generated this result transmitted reference range : <=125. The reference range was not used to interpret this result as normal/abnormal . FRANK (test code = FRANK) Biotin has been reported to cause a negative bias, interpret results relative to patient's use of biotin. Lab Interpretation Abnormal (test code = 72136-1) [facility] HospitalLIP[facility] PANEL (64143)(TOTAL CHOLESTEROL, TRIGLYCERIDES, HDL)2020-06-06 16:22:02 Test Item Value Reference Range Interpretation Comments CHOL (test code = 214 mg/dL 120-200 H 1679493992) HDL (test code = 60 mg/dL >40 7533385855) HDLC RATIO (test code = See_Comment [Au tomated message] 1188434081) The system [employer] generated this result transmit tammy reference range : <=5.0. The refe rence range was not u sed to interpret th is result as normal/abnormal . TRIG (test code = 316 mg/dL 30-170 H 5915715994) LDL CHOL (test code = 91 mg/dL See_Comment [Auto mated message] 87226-1) The system [employer] generated this result transmit tammy reference range : <=160. The refe rence range was not u sed to interpret th is result as normal/abnormal . VLDL (test code = 63 mg/dL 5-60 H 1716749367) Lab Interpretation (test Abnormal code = 68740-5) [facility]-19 [id number] 11:58:49 Test Item Value Reference Range Interpretation Comments SARS-CoV-2 NAAT (test Positive Not Detected A code = 37479-0) FRANK (test code = FRANK) [employer] Xpert ?Xpress SARS-CoV-2 Assay is a rapid, real-time RT-PCR test intended for the qualitative detection of nucleic acid from the SARS-CoV-2 in nasopharyngeal (POST GRADUATE INTERN) specimens. It is used under Emergency Use [...] indicated. Lab Interpretation Abnormal (test code = 75915-2) [facility]GLYCOSYLATED HEMOGLOBIN (A1C)2020-06-06 11:56:53 Test Item Value Reference Range Interpretation Comments HGB A1C (test code = 7.8 % 4.0-6.0 H 4548-4) FRANK (test code = FRANK) %A1C (NGSP) Interpretation (ADA)4.8-5.6 ? ? Normal or (Non-Diabetic Range)5.7-6.4 ? ? Increased Risk (Pre-Diabetic)>6.5 ?Diabetes Indicated Lab Interpretation Abnormal (test code = 35491-5) [facility]COVID[facility] (ID NOW RAPID TESTING)2020-06-06 04:57:34 Test Item Value Reference Range Interpretation Comments SARS-CoV-2 Rapid ID NOW Positive Not Detected A (test code = 47123-8) FRANK (test code = FRANK) ID NOW COVID-19 Assay is an isothermal nucleic acid amplification test intended for the qualitative detection of nucleic acid from SARS-CoV-2 viral RNA in nasopharyngeal (POST GRADUATE INTERN) specimens. It is used under Emergency Use [...] indicated. Lab Interpretation Abnormal (test code = 52260-1) [facility]BR[facility] [id number] 03:36:48 Test Item Value Reference Range Interpretation Comments TROPONIN I (test <0.012 See_Comment [Automated code = 9080193629) message] The system which generated this result [...] ? Lab Interpretation Normal (test code = 25240-1) [facility]COM. METABOLIC PANEL (94043)2020-06-06 03:23:27 Test Item Value Reference Range Interpretation Comments NA (test code = 135 mmol/L 135-145 5595651433) K (test code = 4.5 mmol/L 3.5-5.0 9942202735) CL (test code = 99 mmol/L 98-108 3027373899) CO2 TOTAL (test code = 27 mmol/L 23-31 7090171024) AGAP (test code = 2-16 5742625554) BUN (test code = 25 mg/dL 7-23 H 9503310600) GLUCOSE (test code = 203 mg/dL 70-110 H 7073432128) CREATININE (test code = 1.31 mg/dL 0.60-1.25 H 5468065611) TOTAL BILI (test code = 0.6 mg/dL 0.1-1.9 1315810214) CALCIUM (test code = 9.0 mg/dL 8.6-10.6 5434612075) T PROTEIN (test code = 6.9 g/dL 6.3-8.2 0387329666) ALBUMIN (test code = 4.3 g/dL 3.5-5.0 6903800861) ALK PHOS (test code = 54 U/L 34-122 8833293725) ALTv (test code = 12 U/L 5-50 1742-6) AST(SGOT) (test code = 25 U/L 13-40 5392353559) eGFR Calculation mL/min/1.73m2 (Non-) (test code = 7190214060) eGFR Calculation mL/min/1.73m2 () (test code = 0744546692) FRANK (test code = FRANK) Association of [...] tests). Lab Interpretation Abnormal (test code = 27834-6) [facility]URIN[facility]IS2021-[facility]-20 03:19:40 Test Item Value Reference Range Interpretation Comments APPEARANCE (test code = Hazy Clear A 4026727344) COLOR (test code = Anais Yellow A 8752066927) PH (test code = 4.8-8.0 6613998700) SP GRAVITY (test code = 1.003-1.030 4177876748) GLU U QUAL (test code = 500 mg/dL Normal A 1382518865) BLOOD (test code = Negative Negative 3522311306) KETONES (test code = 5 mg/dL Negative A 1909212930) PROTEIN (test code = 30 mg/dL Negative A 2887-8) UROBILIN (test code = 2.0 mg/dL Normal A 1495430288) BILIRUBIN (test code = Negative Negative 5195071724) NITRITE (test code = Negative Negative 3729150414) LEUK RAIN (test code = Negative Negative 7096699194) RBC/HPF (test code = See_Comment [Autom ated message] 7970301009) The system [employer] generated this result transmit tammy reference range : 0 - 3 HPF. The refe rence range was not u sed to interpret th is result as normal/abnormal . WBC/HPF (test code = See_Comment [Autom ated message] 8209655226) The system [employer] generated this result transmit tammy reference range : 0 - 5 HPF. The refe rence range was not u sed to interpret th is result as normal/abnormal . BACTERIA (test code = Few Negative A 8929003129) MUCOUS (test code = Slight Negative LPF A 1254497962) SQ EPITH (test code = HPF 7943429828) HYAL CAST (test code = See_Comment H [Aut omated message] 9919754592) The system whic h generated this result transmit tammy reference range : <=2 LPF. The refere nce range was not u sed to interpret th is result as normal/abnormal . Lab Interpretation (test Abnormal code = 27233-2) [facility] WITH [id number] 03:13:42 Test Item Value Reference Range Interpretation Comments WBC (test code = See_Comment [Automated 8490-2) message] The sy stem which generated this [...] RDW-SD (test code = 46.5 fL 38.5-51.6 38511-4) RDW-CV (test code = 14.5 % 12.1-15.4 788-0) PLT (test code = See_Comment [Automated 777-3) message] The sy stem which generated this result transmitted reference range : 150 - 328 10*3/ ?L. The reference r denise was not used to interpret this result as normal/abnormal . MPV (test code = 9.6 fL 9.8-13.0 L 32154-8) NRBC/100 WBC (test See_Comment [Automat ed code = 2163118160) message] The system which generated this result transmitted reference range : 0.0 - 10.0 /100 WBCs. The refer ence range was not u sed to interpret th is result as normal/abnormal . NRBC x10^3 (test code <0.01 See_Comment [Auto mated = 3083515073) message] The s ystem which generated this result transmitted reference range : 10*3/?L. The reference range was not used to interpret this result as normal/abnormal . GRAN MAT (NEUT) % 54.8 % (test code = 770-8) IMM GRAN % (test code 1.30 % = 7489458450) LYMPH % (test code = 27.9 % 736-9) MONO % (test code = 7.8 % 5905-5) EOS % (test code = 7.6 % 713-8) BASO % (test code = 0.6 % 706-2) GRAN MAT x10^3(ANC) 5.66 10*3/uL 1.99-6.95 (test code = 1487467621) IMM GRAN x10^3 (test 0.13 10*3/uL 0.00-0.06 H code = 2665310381) LYMPH x10^3 (test code 2.88 10*3/uL 1.09-3.23 = 731-0) MONO x10^3 (test code 0.81 10*3/uL 0.36-1.02 = 742-7) EOS x10^3 (test code = 0.78 10*3/uL 0.06-0.53 H 711-2) BASO x10^3 (test code 0.06 10*3/uL 0.01-0.09 = 704-7) Lab Interpretation Abnormal (test code = 46430-1) [facility] HospitalXR [facility]ST 1 [id number] 03:11:14 1. ?No acute cardiopulmonary abnormality.EXAM: XR [...] An ACDF partial visualized.IMPRESSION1. No acute cardiopulmonary abnormality.[facility] HospitalURINE [id number] 09:06:00 Test Item Value Reference Range Interpretation Comments CULTURE (BEAKER) (test code = 1095) No growth POCT-GLUCOSE [id number] 12:32:00 Test Item Value Reference Range Interpretation Comments POC-GLUCOSE METER 188 mg/dL 70-110 H : TESTED A T [address] [address] (BEAKER) (test code [address], = 1538) [place] [id number]: Supply Chain Development Manager/Techni eddie ID = [id number] for Obik roberta, Ifeyinwa POCT-GLUCOSE [id number] 08:42:00 Test Item Value Reference Range Interpretation Comments POC-GLUCOSE METER 135 mg/dL 70-110 H : TESTED A T [address] (BEAKER) (test code [address], = 1538) [place] [id number]: Supply Chain Development Manager/Techni eddie ID = [id number] for Obik roberta, Ifeyinwa COMPREHENSIVE METABOLIC [id number] 05:20:00 Test Item Value Reference Range Interpretation [...] S NOT APPLICABLE FOR DIALYSIS PATIEN TS. Supply Chain Development Manager ID - [id number] W/PLT COUNT & AUTO [id number] 04:56:00 Test Item Value Reference Range Interpretation [...] PERCENT (BEAKER) (test code = 2801) POCT-GLUCOSE [id number] 20:27:00 Test Item Value Reference Range Interpretation Comments POC-GLUCOSE METER 258 mg/dL 70-110 H : TESTED A T [address] (BEAKER) (test code [facility], = 1538) [place] [address]: Supply Chain Development Manager/Techni eddie ID = [id number] for Will ia, Bettina POCT-GLUCOSE [id number] 17:51:00 Test Item Value Reference Range Interpretation Comments POC-GLUCOSE METER 262 mg/dL 70-110 H : TESTED A T [facility] [address] (BEAKER) ([facility] [place] [address]: Supply Chain Development Manager/Techni eddie ID = [id number] for Bhavin Carvajal POCT-GLUCOSE [id number] 12:48:00 Test Item Value Reference Range Interpretation Comments POC-GLUCOSE METER 242 mg/dL 70-110 H : TESTED A T [facility] [address] (BEAKER) (test code [address], = 1538) [facility] [address]: Supply Chain Development Manager/Techni eddie ID = [id number] for Bhavin Carvajal PT/[id number] 10:22:00 Test Item Value Reference Range Interpretation [...] (Auto Output)Final Information (Auto Output)Final Information (Auto Output)[id number] 10:19:00 Test Item Value Reference Range Interpretation Comments MAGNESIUM (BEAKER) (test code = 2.1 mg/dL 1.5-3.0 627) Supply Chain Development Manager ID - [id number] METABOLIC [id number] 10:18:00 Test Item Value Reference Range Interpretation [...] S NOT APPLICABLE FOR DIALYSIS PATIEN TS. Supply Chain Development Manager ID - [id number] W/PLT COUNT & AUTO [id number] 10:14:00 Test Item Value Reference Range Interpretation [...] IMMATURE GRANULOCYTES-RELATIVE 1 % 0-0 H PERCENT (AKER) (test code = 2801) POCT-GLUCOSE [id number] 09:14:00 Test Item Value Reference Range Interpretation Comments POC-GLUCOSE METER 198 mg/dL 70-110 H : TESTED A T [address] ([facility]) (test code [facility], = 1538) [place] [address]: Supply Chain Development Manager/Techni eddie ID = [id number] for Bhavin Carvajal POCT-GLUCOSE [id number] 21:33:00 Test Item Value Reference Range Interpretation Comments POC-GLUCOSE METER 218 mg/dL 70-110 H : [facility] (test code [facility], = 1538) [place] [address]: Supply Chain Development Manager/Techni eddie ID = [id number] for Roney Chapa POCT-GLUCOSE [id number] 16:23:00 Test Item Value Reference Range Interpretation Comments POC-GLUCOSE METER 225 mg/dL 70-110 H : Notified RN/MD: TESTED ([facility]) (test [facility] [address] = 1538) [place] [id number]: Supply Chain Development Manager/Techni eddie ID = [id number] for Thak sheron, Christianben POCT-GLUCOSE [id number] 14:34:00 Test Item Value Reference Range Interpretation Comments POC-GLUCOSE METER 167 mg/dL 70-110 H : [facility]) (test code [facility], = 1538) [place] [address]: Supply Chain Development Manager/Techni eddie ID = [id number] for Palm er, Ealine FL, FLUORO, NON-SPECIFIC, UP TO 1 [id number] 13:30:00Reason for exam:->surgeryFluoroscopic unit utilized for a procedure performed in the OR. No interpretation was requested. Refer to the operative report for findings. Refer to PACS for patient radiation dose information.URINALYSIS WITHOUT [id number] 11:32:00 Test Item Value Reference Range Interpretation [...] 463) SOURCE(BEAKER) (test code = 2795) POCT-GLUCOSE [id number] 07:56:00 Test Item Value Reference Range Interpretation Comments POC-GLUCOSE METER 179 mg/dL 70-110 H : TESTED A T [facility] [address] (BEAKER) (test code [address], = 1538) [facility] 77 478: Supply Chain Development Manager/Techni eddie ID = [id number] for Yogesh Padilla SARS-COV2/RT-PCR ([facility])2019-10-30 13:51:00 Test Item Value Reference Range Interpretation Comments SARS-COV2/RT-PCR (test code = See reflex 6976494) SARS-COV-2 PERFORMING LAB (test code CPL = 3580113) BASIC METABOLIC [id number] 09:33:00 Test Item Value Reference Range Interpretation [...] 1092) DATA TO CALCULA TE ESTIMATED GFR. Supply Chain Development Manager ID - [id number] W/PLT COUNT & AUTO [id number] 09:03:00 Test Item Value Reference Range Interpretation [...] 0-0 PERCENT (BEAKER) (test code = 2801) Consult Notes Date/Time Note Provider Source 2022-11-28 0257-64-97L73:47:05Associated Order(s): CONSULT Evelyne Lino [facility] - 08:47:05 ADULT OCCUPATIONAL THERAPY; CONSULT ADULT OT Health OCCUPATIONAL THERAPYFormatting of this note migh t be different from the original.[id number] THERAPY NOTE:Consult received, chart reviewed. However, per [facility], patient is bed bound and lives in a nursin home. Patient appears to be at his functional baseline. Recommend SNF therapist screen patient upon return to assess for any restorative or positioning needs. OT signs off as no acute care OT needs identified. Ryan Lino OTR 81116-3Pzxjqhc xtpaYM0446-49-42D39:51:55Consult noteTXT1.2.840.031858.1.13.104.2.7.2.083904|1895 889 769AVAvailable for patient dkqn34713-5Mlhbdxt [id number] M Evans OTUTMBUTMB - Health[address] [place] [address] EukeWpjewnqlkApkhwfgkhCWYT4385523486SDNOMPVKPAID DOROTHY MGZBHED3492-98-12A50:51:551.2.840.159489.1.72.3. 15| 1.2.840.210014.1.13.104.2.7.2.727879_[id number] 2022-11-28 0541-71-40U96:12:01Associated Order(s): CONSULT IM-CARDIOVAS [facility] - 08:12:01 CARDIOLOGYFormatting of this note might be CULAR Health different from the original.Please see consult n ote DISEASE by Dr. Ross on 11/25/22. Pt admitted und er [facility] team now. Cardiology consult will sign off.Jose M Kaminski, MDCardiology Fellow, PGY-4 ssociated attestat Angel Hooper MD - 11/28/2022 10:01 PM CDTFormatting of this note might be different fr om the original. 19980-0Sjppnrx [id number]-Imjecrbo, Tareq1.2.840.828069.1.13.104.2.7.2.243938Nfd-Cnm belinda gyQwfbzEX6543-37-76Y65:01:10Consult noteTXT1.2.840.795889.1.13.104.2.7.2.085654|1895 836 801AVAvailable for patient wbln14916-3Vmjzasp noteLNIM-CARDIOVASCULAR DISEASEIM-CARDIOVASCULAR DISEASE[address] Yd[id number] DOROTHY ZUBLILG7489-75-70A91:01:101.2.840.159423.1.72.3. 15| 1.2.840.106828.1.13.104.2.7.2.727879_[id number] 2022-11-27 2482-70-04I72:52:00Associated Order(s): CONSULT Gregory Baum [facility] - 17:52:00 ADULT PHYSICAL THERAPYFormatting of this note is PT Health different from the original.Patient agreeable to working with physical therapy. Patient met semi reclined in bed.Recommend nursing staff utilize mechanical lift/cruz to safely assist patient w ith mobility out of the bed or chair.PHYSICAL THERAP Y EVALUATIONConsult received, chart reviewed and evaluation complete this date. Patient is referr ed to PT for evaluation and treatment. Patient is a 72 year old male wuth extensive past medical histor y below, who presents to hospital for Other form o f dyspnea [R06.09]NSTEMI (non-ST elevated myocardi al infarction) [I21.4] . Discharge Recommendations: Therapy Needs and Potential:Patient without any skilled PT needs at this time.Challenges to Home Transition: increased risk of fallsEquipment recommendations:no device and Patient has or acc ess to necessary equipmentCurrent Functional Status and/or Treatment: AM-PAC 6 Clicks (Raw Score 0=Dependent, 24=Independent; Low function Raw Sc ore 0= Dependent, 32=Independent):Raw Score - Basic Mobility : 8T-Scale Score - Basic Mobility : 22. 61 Bed Mobility:Supine to sit: Maximum AssistanceScooting to edge of bed: Maximum AssistanceSit to supine: Maximum Assistance Laine ent uses BUE to complete this task.Patient sat edge of bed for 1 minute with poor+ sitting balance. Patient states that this is functional baseline due to his paralysis half waist down.Transfers: defe r due to fatigue Ambulation: defer due to non-ambulatory Therapeutic exercise: patient educated in Fall prevention, Positioning, Relaxation/breathing techniques, and Safety awareness.After session, patient semi reclined i n bed and bed alarm on . Call button provided. RN notified and aware.PLAN OF CARE: PT signs off.Patient is currently at his functional basel ine which is bed bound and requires dependent mechanical lift for transfer.See below for compl ete details. Admit Date: 11/23/2022 Hospital Diagnosis:Other form of dyspnea [R06.09]NSTEMI (non-ST elevated myocardial infarction) [I21.4] PT Diagnosis: Malaise/fatigue and PainWeight Bearin g Precaution: NA General Precautions: PPE used:Gloves, Fall,Herrera catheterBracing/Cast present or required:N/APMH: Past Medical History : Diagnosis Date Acute lacunar infarction 09/2021 left basal ganglia and left internal capsule Atr ial fibrillation s/p pacemaker Chronic pain Communication deficit Coronary artery disease GE RD without esophagitis HLD (hyperlipidemia) HTN (hypertension) Hypokalemia Multiple myeloma Multiple thyroid nodules 09/2021 Muscle weakness (generalized) Pacemaker Paraplegia, unspecified Parkinson's disease Polyneuropathy Prostate canc er, primary, with metastasis from prostate to other site stereotactic body radiation therapy (SBRT) to the T11 spine completed 12/06/2018; Lupron Prosta tic hypertrophy Radiation induced proctitis Reduced mobility Sepsis, unspecified organism Type 2 diabetes mellitus without complications Ulcerati ve proctitis Urinary tract infection, site not specified Vertebral artery stenosis, left 2 PSH: Past Surgical History: Procedure Laterality Date ANTERIOR CERVICAL FUSION C4-C5, C5-C6, C6-C 7 CORONARY ARTERY BYPASS GRAFT 2001 LAPAROSCOPIC APPENDECTOMY PCI 2015 Prior Living Situation: in a halfway, DME: Wheel Chair , Hospital bedPri or level of Mobility: remains bedridden . As per patient report, uses cruz lift for transfer getting hiom out of bed.Suspected ischemic or hemorraghic stroke:NoSubjective: Patient in bed and agreeable to Physical Therapy session. Patient reports " good"Patient/Family Goals: get wellPatient/Family verbalizes understanding of condition: Yes PAIN: -Pain Description: aching-P ain Location: pelvis-Pain rating before treatment: 6 , After treatment: does not rate-Pain Management: Nursing Notified and Repositioning ProvidedCOMMUNICATIONPrimary Language: Wallisian A ble to Verbalize needs: Yes Vision:good; no issues reported Hearing:good; no issues reported ORIENTATION/COGNITION:Oriented to: person, place , date/time, and situation Awake: Yes Alert: Yes Dizzy: No Follows Commands: Yes 1-Step Yes Multi-Step Yes Inconsistent: No NEUROLOGICALLigh t Touch: within functional limits bilateral LE, He el to edwards: impaired BLETone: FLACCID BLE BALANCE:Sitting: Static: Poor+ Dynamic: PoorStanding: Static: NA Dynamic: NARANGE OF MOTION: within functional limits bilateral LE, passively done STRENGTH: 0/5 (Absent), bilateral LE ENDURANCE: Fair, Room air SKIN INTEGRITY: stage 2 pressure ulcer rectum, PROBLEM LIST: Decreased endurance, Pain, and Integument compromiseASSESSMENT: Patient is a 72 year old m whit seen secondary to the above listed diagnosis. No further inpatient PT needs identified at this time.Patient reports that he is at functional baseline base on the assessment completed today.Rehabilitation Potential: NA as no further therapy needs Goals: The following goals are to maximize independence and safety with functional mobility to eventually return to prior living situation and prior functional status. Defer as no PT needs.Treatment Plan: Evaluation only, Discha rge from PT , and Safety education, patient/caregive r educationPATIENT EDUCATION: Patient provided wit h preferred teaching of verbal information on role of PT, plan of care, . Shows readiness to learn. Verbal instruction teaching provided. Individual is able to read and verbalizes understanding of teaching provided.Total Time Tx Codes in Minutes : 0 minTotal Treatment Time in Minutes: 20 minGregory Baum PT, DPTLicenssandra # [id number] West Medical Center of Rehabilitation ServicesKindred Hospital 86676-9Dnwljls gjskOS7967-19-53P99:00:44Consu noteTXT1.2.840.010285.1.13.104.2.7.2.165739|1895 672 838AVAvailable for patient xqrh35772-5Cpqinmg [id number] Luyun PTUT47 Alvarez [id number] OREGON PSYCHIATRIC [facility] DLWKXTJ1485-03-46T63:00:441.2.840.647626.1.72.3. 15| 1.2.840.062834.1.13.104.2.7.2.727879_[id number] 2022-11-27 4340-41-16M46:43:00Associated Order(s): CONSULT [facility] - 09:43:00 ADULT PHYSICAL THERAPYFormatting of this note [facility] Health be different from the original.PHYSICAL THERAPY NOTE:Duplicate Consult received, please refer to completed evaluation today for details. Thanks.Bina Baum PT, DPT 10330-9Kjtvrns jwpqML3935-68-99H74:02:12Consult noteTXT1.2.840.851694.1.13.104.2.7.2.601336|1895 672 979AVAvailable for patient rfxv74239-4Bdengru noteLNUTMB49 Tru[address] StreetFbcuMokabmwxyHxjojenxcSVZK5462019482TYVGGXJJAPAQ NGA AJHNDGW8932-84-76D55:02:121.2.840.766750.1.72.3. 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 In [facility] labs were noted for elevate d lactic acid however here patient's lactic acid i s resolved since arrival patient denies any chest pain. Troponin peaked to 3.95. Vitals have been stable.Past Medical History: Diagnosis Date [employer]ard [employer] Was[employer] girma pain Communication deficit GERD without esophagi tis HLD (hyperlipidemia) HTN (hypertension) Hypokale lakshmi Muscle weakness (generalized) Pacemaker Parapleg ia, unspecified Parkinson's disease Polyneuropathy Prostatic hypertrophy Radiation induced proctiti s Reduced mobility Sepsis, unspecified organism Ty pe 2 diabetes mellitus without complications Ulcerative proctitis Urinary tract infection, si te not specified No Known AllergiesCurrent Facility-Administered Medications: acetaminophen (TYLENOL) tablet 650 mg, 650 mg, Oral, Q6HPRN, Stone Adame MD aspirin chewable tablet 81 mg , 81 mg, Oral, DAILY, Alexandria Henley DO atorvastat in (LIPITOR) tablet 80 mg, 80 mg, Oral, QHS, Tori Jason, bisacodyL (DULCOLAX) suppository 10 mg , 10 mg, Rectal, QDAILYPRN, Stone Adame MD carbidopa-levodopa (SINEMET-25/100) 25-100 mg tablet 4 tablet, 4 tablet, Oral, QID, Stone Adame MD, 4 tablet at 11/24/22 1734 carvediloL (COREG) tablet 3.125 mg, 3.125 mg, Oral, BID JULIAN LS, Alexandria Henley DO, 3.125 mg at 11/24/22 1734 ceFEPIme (MAXIPIME) 1,000 mg in NaCl 0.9% (NS) 1 00 mL MINI-BAG, 1,000 mg, IV Piggyback, Q8H ABX, Tori Jason DO citalopram (CELEXA) tablet 40 m g, 40 mg, Oral, DAILY, Stone Adame MD, 40 mg at 11/24/22 1108 clopidogreL (PLAVIX) 75 mg tablet 75 mg, 75 mg, Oral, DAILY, Alexandria Henley DO dextro se 50 % in water (D50W) injection 25 mL, 25 mL, Slo w IV Push, PRN, Alexandria Henley DO famotidine (PEPC ID AC) tablet 20 mg, 20 mg, Oral, BID, Flaca Adame MD FENTanyl (DURAGESIC) 50 mcg/hr patch 1 Patch, 1 Patch, Transdermal (Apply To Skin), ONCE Q 3DAYS , Stone Adame MD, 1 Patch at 11/24/22 0914 glucagon (GLUCAGEN DIAGNOSTIC KIT) injection 1 m g, 1 mg, Intramuscular, PRN, Alexandria Henley DO hepa rin (1,000 unit/mL, 10 mL vial) for Rebolusing, 3,00 0 Units, Slow IV Push, FOR REBOLUSING, Josue Rios FNP heparin 25,000 Units/250 mL (Premixed Bag) in 0.45 % NS, 0-2,750 Units/hr, IV Infusion , TITRATE, Deb Rios FNP, Paused at 11/25/22 0401 nitroglycerin (NITROSTAT) sublingu al tablet 0.4 mg, 0.4 mg, Sublingual, Q5MIN PRN, Alexandria Henley DO ondansetron (ZOFRAN (PF)) injection 4 mg, 4 mg, Slow IV Push, Q6HPRN, Stone Adame MD Sliding Scale Insulin - Lispr o (HumaLOG), , Subcutaneous, TID MEALS+HS, Alexandria Henley DO, 1 Units at 11/24/22 1740 tamsulosin (FLOMAX) capsule 0.4 mg, 0.4 mg, Oral, QHS, Stone Adame MD traMADoL (ULTRAM) tablet 50 m g, 50 mg, Oral, Q8HPRN, Stone Adame MD, 50 mg a t 11/24/22 2001Physical Examination:Temp: [35.8 ?C (96.5 ?F)-36.9 ?C (98.5 ?F)] Heart Rate (monitor ): [62-67] Pulse: [62-80] Resp: [11-18] BP: (113-174)/(64-88) MAP (mmHg): [74-117] Intake/Output Summary (Last 24 hours) at 0730Last data filed at 11/25/2022 0704Gross per 24 hour Intake 252.59 ml Output 1400 ml Net -1147.4 1 ml Cardio: no JVD, RRR, no murmurs appreciatedLungs: crackles noneExtremities: no edemaTTE: Left Ventricle: Left ventricle size is normal. Normal wall thickness. Normal wall motio n. See diagram for wall motion findings. Low normal systolic function with a visually estimated EF o f 50 - 55%. There is impaired relaxation. Right Ventricle: Right ventricle size is normal. Yin l systolic function. Tricuspid Valve: Trace transvalvular regurgitation. Insufficient tricus pid regurgitation jet to estimate RVSP. IVC not well seen. Left Atrium: Left atrium is mildly dilated . Pericardium: Trivial pericardial effusion present.Nuclear/CT: noneCardiac Cath: None on fileAssessment/Plan:Blaine Silva is a 72 year old male admitted with:NSTEMIMetastatic prostate cancer with lung metsHistory of multivessel CAD status post CABGHypertensionDiabetesHyperlipidemiaPacemaker placement status post bradycardiaPatient has NST HILDA however given that he has metastatic prostate cancer with mass to the lung. He was evaluated b y interventional burglary investigator at [facility] who deferred to the procedure given NSTEMI. Given patient's history of multivessel CAD status post CABG in 2001 most likely patient would need PCI at one-point and he will be on DAPT uninterrupted f or minimum of 6 to 12 months. Recommend primary tea m to discuss with oncology interventional pulm to see if they are going to biopsy this lesion and intermediate future and patient's prognosis and based on that further ischemic work-up can be tailoredRecommendations:Aggressive medical managementContinue aspirin 81 mg dailyHigh intensity statinHeparin dripTrend troponins unti l peakKeep patient n.p.o. we will post him for a diagnostic cath this morningPrimary team to disc uss further management of this lung mass and if biop sy is needed and need recent future and also progno sis of metastatic prostate cancer with oncologist an d interventional Peace Ross MD.Cardiovascular Disease Fellow, PGY-5Pager: [phone] Laraectronically signed by Angel Mcneil MD at 11/27/2022 1:58 PM CDTAssociated attestati on - Angel Mcneil MD - 11/27/2022 1:58 PM CDTFormatting of this note might be different fr om the original.I personally saw and examined the patient and agree with the fellow's note as writ ten . Case discussed with Dr. Soto1)NSTEMI, proceed with LHC2) Lung nodules / metastatic disease, Pt would like FU with oncologist as OP for further work up. Angel Greene MD, [facility] Cardiology [id number] [id number]-Zcbplcbo, Tareq1.2.840.649768.1.13.104.2.7.2.623864Aol-Fng rif jrAixfeNB1322-26-92G99:58:19Consult noteTXT1..840.096978.1.13.104.2.7.2.070244|1894 354 515AVAvailable for patient [id number] noteLNUT[address] Ta[id number] NGA DOMTAQP7448-32-89J05:58:191.2.840.601855.1.72.3. 15| 1.2.84[id number] 2022-11-24 3319-83-64C12:54:33Associated Order(s): CONSULT [facility] - :54:33 CARDIOLOGYFormatting of this note is different f [facility] the original.[facility] Cardiology ConsultPCP: Jose M Marques Date of Service: 3CHIEF COMPLAINT/gloria son for consult: Troponin elevationHISTORY OF PRESEN T ILLNESSEdwin is a 72 years old male with past medical history of hypertension, hyperlipidemia, pacemaker implantation for bradycardia, parapleg ia, metastatic prostate cancer, diabetes, carotid artery disease, possible atrial fibrillation, an d coronary artery disease status post CABG in 2001 and PCI stenting a few years ago. He presented t o [facility] emergency room due to abdominal pa in and chest pain. According to the patient and family, he has been having chronic lower abdomin al pain. Yesterday the pain spread to the substerna l area and lasted about 20 minutes. There was no radiation of the chest pain. There was no associated symptoms from it. The first set of troponin was negative. The second set hammad to 3. 69. Currently chest pain has resolved. About 2 weeks ago, he was admitted to a local hospital for abdominal pain. The mentioned that his troponin was elevated. He underwent echocardiogr am and nuclear stress test over there.PAST MEDICAL HISTORY Past Medical History: Diagnosis Date Chronic pain Communication deficit GERD without esophagitis HLD (hyperlipidemia) HTN (hypertensi on) Hypokalemia Muscle weakness (generalized) Pacema ker Paraplegia, unspecified Parkinson's disease Polyneuropathy Prostatic hypertrophy Radiation induced proctitis Reduced mobility Sepsis, unspecified organism Type 2 diabetes mellitus without complications Ulcerative proctitis Urina ry tract infection, site not specified History reviewed. No pertinent surgical history.No famil y history on file.ALLERGIESNo Known AllergiesMEDICATIONSNo current facility-administered medications on file prior to encounter. Current Outpatient Medications on Simón e Prior to Encounter Medication Sig Dispense Refil l acetaminophen (TYLENOL) 325 mg Cap Take 2 capsul es by mouth every 6 (six) hours as needed for Pain (scale 1-3) or Fever (temp >100.4F). aspirin 81 mg EC tablet Take 1 tablet by mouth in the morning. atorvastatin 40 mg tablet Take 1 tablet by mouth at bedtime. bisacodyL 10 mg suppository Insert 1 Suppository into rectum once daily as needed for Constipation. Cholecalciferol, Vitamin D3, 125 m cg (5,000 unit) capsule Take 1 capsule by mouth in the morning. citalopram 40 mg tablet Take 1 tablet b y mouth in the morning. docusate (COLACE) 100 mg capsule Take 1 capsule by mouth in the morning. famotidine 20 mg tablet Take 1 tablet by mouth i n the morning and 1 tablet in the evening. FENTANY L TRANSDERMAL Apply 50 mcg/hr to skin every 3 (thr ee) days. HYDROcodone-acetaminophen (NORCO) 7.5-325 mg per tablet Take 1 tablet by mouth in the morning and 1 tablet in the evening. pain Lidocaine 5 % cream Apply 1 Application to area(s) in the morn ing and 1 Application in the evening. Apply bid to sides of neck for pain methocarbamoL 500 mg tabl et Take 1 tablet by mouth in the morning and 1 tabl et in the evening. nystatin 100,000 unit/gram cream Apply 1 Application to area(s) in the morning an d 1 Application in the evening. For rash polyethylen e glycol 3350 (MIRALAX) 17 gram/dose powder Take 1 7 g by mouth in the morning. tamsulosin 0.4 mg 24 hr capsule Take 1 capsule by mouth at bedtime. ascorbic acid, vitamin C, 500 mg tablet Take 1 tablet by mouth 2 (two) times daily. carbidopa-levodopa 25-100 mg tablet Take 4 table ts by mouth 4 (four) times daily. Cholecalciferol, Vitamin D3, 25 mcg (1,000 unit) capsule Take 1 capsule by mouth daily. clopidogreL 75 mg tablet Take 1 tablet by mouth in the morning. empagliflozin-linagliptin (GLYXAMBI) 25-5 mg Tab Take 1 tablet by mouth daily. eszopiclone 3 mg tablet Take 3 mg by mouth at bedtime. gabapentin 300 mg capsule Take 1 capsule by mouth in the morning and 1 capsule in the evening. isosorbide mononitrate 30 mg 24 hr tablet Take 1 tablet by mouth in the morning. melatonin 10 mg Tab Take b y mouth. predniSONE 50 mg tablet Take 50 mg by manuel th daily. simvastatin 80 mg tablet Take by mouth at bedtime. vilazodone (VIIBRYD) 10 mg Tab Take by mouth. zinc sulfate 220 (50) mg capsule Take 1 capsule by mouth 3 (three) times daily. SOCIAL HISTORYSocial History Socioeconomic History Melinda mirta status: Tobacco Use Smoking status: Kristyn hunt Smokeless tobacco: Current Social Determinants o f Health Financial Resource Strain: Low Risk (11/24/2022) Overall Financial Resource Strain (CARDIA) Difficulty of Paying Living Expenses: N ot hard at all Food Insecurity: No Food Insecurity (11/24/2022) Hunger Vital Sign Worried About Runni ng Out of Food in the Last Year: Never true Ran Out of Food in the Last Year: Never true Transportation Needs: No Transportation Needs (11/24/2022) PRAPAR E - Transportation Lack of Transportation (Medical): No Lack of Transportation (Non-Medical): No Physica l Activity: Inactive (11/24/2022) Exercise Vital Sig n Days of Exercise per Week: 0 days Minutes of Exercise per Session: 0 min Social Connections: Unknown (11/24/2022) Social Connection and Isolati on Panel [NHANES] Frequency of Communication with Friends and Family: More than three times a week Marital Status: Housing Stability: Low R isk (11/24/2022) Housing Stability Vital Sign Unable t o Pay for Housing in the Last Year: No Number of Places Lived in the Last Year: 1 Unstable Housin g in the Last Year: No REVIEW OF SYSTEMSAt least 1 0 systems reviewed, negative except as mentioned i n HPI PHYSICAL EXAMINATIONVitals: 11/24/22 0812 11/24/22 1141 11/24/22 1625 11/24/22 1935 BP: (! ) 174/88 (!) 159/83 (!) 161/83 (!) 158/81 BP Location: Left arm Left arm Pulse: 72 78 80 71 Resp: 18 18 16 16 Temp: 36.4 ?C (97.6 ?F) 36.1 ? C (96.9 ?F) 35.8 ?C (96.5 ?F) 36.1 ?C (96.9 ?F) TempSrc: SpO2: 99% 95% 93% 95% Weight: Height: Constitutional: alert and oriented x 3 (person, place and date/time); no apparent distressENT: normocephalic atraumatic, supple, no lymphadenopathy, no bruits, no JVDLungs: clear t o auscultation bilaterallyCardiovascular: S1, S2 normal, regular; no murmurs, rubs or gallopsGI: soft; non-tender; non-distended; normoactive bow el soundsGU: not examinedMusculoskeletal: Extremiti es: no clubbing, cyanosis, or edemaSkin: no rashesLA BS - reviewed pertinent labs as below:CBC BMP PT/IN R WBC (10*3/?L) Date Value 11/23/2022 6.34 NA (mmol/L) Date Value 11/23/2022 131 (L) No result s found for: "PT" PLT (10*3/?L) Date Value 023 260 K (mmol/L) Date Value 11/23/2022 3.4 (L) INR (no units) Date Value 11/24/2022 1.4 HGB (g/dL) Date Value 11/23/2022 11.7 (L) BUN (mg/dL) Date Value 11/23/2022 6 (L) HCT (%) Date Value 11/23/2022 35.5 (L) CREATININE (mg/dL) Date Valu e 11/23/2022 0.42 (L) LIPID PROFILE GLUCOSE (mg/dL ) Date Value 11/23/2022 118 (H) CHOL (mg/dL) Date Value 06/06/2020 214 (H) TSH LDL CHOL (mg/dL) Da te Value 06/06/2020 91 No results found for: "TSH" CARDIAC ENZYMES HDL (mg/dL) Date Value 60 No results found for: "CK" TRIG (mg/dL) Date Value 06/06/2020 316 (H) LFTs No results found f or: "CKMB" AST(SGOT) (U/L) Date Value 11/23/2022 31 TROPONIN I (ng/mL) Date Value 11/24/2022 3.950 ( H) ALTv (U/L) Date Value 11/23/2022 28 No results found for: "BNP" IMAGING - reviewed, pertinent results as below: Chest u-yne-ztzrrUWI: Normal sinus rhythm, nonspecific ST-T abnormalityASSESSMENT/PLANPrincipal Problem: Oth er form of dyspneaActive Problems: Coronary artery disease involving coronary bypass graft of nativ e heart without angina pectoris Essential hypertension Dyslipidemia Pacemaker Bilateral carotid artery stenosis Troponin I above referen ce range PAF (paroxysmal atrial fibrillation)Chroni c abdominal pain-management per primary team.Chest pain, troponin elevation-given history of CAD, chest pain, dynamic troponin changes, and echocardiogram showing regional wall motion abnormality, likely type I myocardial infarction due to acute coronary syndrome. Recommend to continue aspirin, Plavix. Continue intravenous heparin anticoagulation. Continue Coreg and high intensity Lipitor. Recommend transferring to [facility] for left heart cath and possible intervention. His primary steel tier is Dr. Mehul butler in [facility].Status post pacemaker implantation for bradycardia in 2021.CAD-history of CABG and PCI stenting. According to the family, he was told b y Dr. Sánchez that at some point he might need secon d bypass surgery. Continue aspirin, Plavix, Lipito r, and Coreg.Possible paroxysmal atrial fibrillation-currently in normal sinus rhythm. Apparently he takes anticoagulant at home.Hypertension-his blood pressure is elevated . Titrate Coreg as tolerated.Hyperlipidemia-goal L DL less than 55 to 70. Continue high intensity Lipitor. Repeat fasting lipid panel.Carotid homero ry disease-medical therapy was recommended.Thank vanessa liz for allowing us to participate in the care of yo ur patient. Please feel free to contact us for any questions or if we can be of further assistance.Nico Hall MD, FACC, FASEAssociate ProfessorDivision of Cardiovascular MedicineUnCarl R. Darnall Army [facility] Center [address]-4Kqrtlfu uuboWP9627-14-85H28:04:57Consult noteTXT1.2.840.575374.1.13.104.2.7.2.745319|1894 075 479AVAvailable for patient fcrd99351-1Metupmw noteLN[address] Dp[id number] NGA NXFOPTT9158-83-43R95:04:571.2.840.077275.1.72.3. 15| 1.2.84[id number] 2022-11-24 6804-71-68Z52:28:38Associated Order(s): CONSULT IM-PULMONARY [facility] - 14:28:38 PULMONARY MEDICINEFormatting of this note might be DISEASE Health different from the original.[facility]Pulmonary/Critical Care MedicineInterventional PulmonologyChief Complain t: Abnormal CT scan of the chestSubjective: Blaine Silva is a 72 year old male who [facility]. Chest pain occurred yesterday, started in his lower body and then we nt up to his neck. Described as sharp. Pain lasted for a while yesterday and then resolved. Had some shortness of breath at the time but no shortness of breath currently. Patient is currently paralyzed from the waist down due to spinal cord injury fr om metastatic prostate cancer. Of note his oncologi st is aware of the lung lesion and as of yet no bio psy has been done.Past Histories: I have reviewed an d updated the following as appropriate: past medic al history, past surgical history, family history, social history.Objective:BP (!) 159/83 (BP Location: Left arm) | Pulse 78 | Temp 36.1 ?C (9 6.9 ?F) | Resp 18 | Ht 5' 11" (1.803 m) | Wt 207 lb 14.4 oz (94.3 kg) | SpO2 95% | BMI 29.00 kg/m? Physical ExamConstitutional: Appearance: Normal appearance. Cardiovascular: Rate and Rhythm: Nor mal rate and regular rhythm. Pulmonary: Effort: Pulmonary effort is normal. No respiratory distress. Neurological: General: No focal defici t present. Mental Status: He is alert and oriented to person, place, and time. Labs/Studies:WBC 6.34 hemoglobin 11.7 platelet 260Sodium 131 potassium 3.4 chloride 99 CO2 19 BUN 6 creatinine 0.42 glucose 118Initial troponin 0.019, hammad to 3.69Chest CT scan showed 3.2 cm pleural-based ma ss along the left lower lobeAssessment:Blaine fernandez is a 72 year old male with admission for chest p ain likely due to non-ST elevation SC. Incidentally found to have a left lower lobe lung mass. This was apparent previously documented in outside hospit al although it appears to be increased in size. Thi s is likely related to metastatic prostate cancer of the secondary malignancy cannot be ruled out.Plan:At this point will defer the need for further work-up specifically a biopsy to his primary oncologist. If at any time she feels nestor t a biopsy is required we are able to assist, jada hunt this would have to wait ideally until he recover s from his myocardial infarction, at least 6 weeksElectronically signed by Tara Manzano DO a t 11/24/2022 2:35 PM [id number] qgjaEQ5037-63-51F53:35:28Consult noteTXT1.2.840.670591.1.13.104.2.7.2.443411|1893 868 927AVAvailable for patient ungw05707-5Bscvwjp noteLNIM-PULMONARY DISEASE STAFFIM-PULMONARY DISEASE STAFFUT36 Davis StreetUg[id number] [facility] SHFMCDC0755-71-13B06:35:281.2.840.675416.1.72.3. 15| 1.2.84[id number] History and Physical Notes Date/Time Note Provider Source 2022-11-25 8000-07-97F21:19:40Formatting of -CARDIOVASCUL [facility] 14:19:40 this note might be different from DISEASE the original.Pre-Procedure Sedation [age]wtel17 year old male with PMHx of multivessel CAD status post CABG (ZHU to LAD, venous graft down per Care Everywhere note in 2016 ), hypertension hyperlipidemia, bradycardia status post pacemaker placement, diabetes, metastatic prostate cancer with possible mets to lung, CVA with left vertebral artery stenosis, Parkinson's disease admitted for NSTEMI. Plan LHC/CA +/- PCIAllergies were reviewed.NPO StatusSolids: >6 hoursClear liquids: >2 hoursHistoryHistory of anesthesia/sedation complications: NoHistory of difficult airway: NoHistory of neck problems, craniofacial abnormalities, head/neck surgery: NoIncreased risk for airway obstruction, sleep apnea, morbid obesity: No Focused Physical Exam Heart: documented in H&P NormalLung: documented in H&P NormalAirway Mallampati: IIIMouth opening: NormalRange of motion neck: NormalDentition: NormalAssessment: ASA IVPlan: Moderate sedation The risks, benefits, and treatment options of sedation were discussed with the patient/guardian and they desire to proceed. The consent form was completed and signed. Discussed with Dr.MotiwalaMohammed Mandy MD. Cardiovascular Disease Fellow ssociated attestation - Jaki Ramirez MD - 11/28/2022 11:50 AM CDT Agree with pre procedure assessment.[id number] and physical [id number], Afaq1.2.840.452570.1.13.104.2.7.2.83 2004WkhkpgbmDymhJF2847-93-98A73:50:0 5History and physical noteTXT1.2.840.378583.1.13.104.2.7.2 .225880|[id number] for patient ighg77490-6Gqqvnlx and physical noteLNIM-CARDIOVASCULAR DISEASEIM-CARDIOVASCULAR DISEASEUT[address] Ua[id number] BFOFNXCYXMVEOBCMVHSRTE6139-18-44R70: 50:051.2.840.775068.1.72.3.15|1.2.84 0.037408.1.13.104.2.7.2.727879_18948 67310 2022-11-25 0473-34-27Y66:00:00Formatting of [facility] 00:00:00 this note is different from the original.Medicine Intensive Care History and Physical Date of Service: 11/25/2022 00:35ICU Admit date: 11/24/2022 Intubation Date: NACHIEF COMPLAINT: chest painHISTORY OF PRESENT ILLNESSBlaine Silva is a 72 year old male with a PMH of CAD s/p CABG (2001), Gerd, HTN, HLD, pacemaker placement due to bradycardia, DM2, metastatic prostate cancer s/p chemo approx 2 months ago, CVA with L vertebral artery stenosis, parkinsons presenting for chest pain. Pt is transferring from [facility] for following finding of NSTEMI for [facility]. [place], labs notable for Hgb 11.7, on ABG pH 7.73, PCO2 18, PaO2 185, Lactic acid 5.5, Na 131, K 3.4, troponin of 3,69 which has uptrended to 3.95. Pt reports that chest pain began yesterday. He described chest pain as a sharp pain that is in the middle of his chest that radiates to his neck. He reports that he believes its due to stress over his prostate cancer. He reports having this pain before back when he had his triple bypass procedure. Pt reports cough that has caused him to cough up white phlegm as well. Pt does not believe chest pain comes with exertion. Denies SOB, nv, abd pain, dysuria, headache, lightheadedness, melena, hematochezia. PSurgical Hx: History reviewed. No pertinent surgical history.Family Hx:No family history on file.Social Hx:Social History Tobacco Use Smoking status: Never Smokeless tobacco: Current REVIEW OF SYSTEMSNegative except per HPIPHYSICAL EXAMINATIONVitals: 11/24/22 1141 11/24/22 1625 11/24/22 1935 11/24/22 2252 BP: (!) 159/83 (!) 161/83 (!) 158/81 (!) 149/83 BP Location: Left arm Left arm Right arm Pulse: 78 80 71 67 Resp: 18 16 16 16 Temp: 36.1 ?C (96.9 ?F) 35.8 ?C (96.5 ?F) 36.1 ?C (96.9 ?F) 36.8 ?C (98.2 ?F) TempSrc: Axillary SpO2: 95% 93% 95% 98% Weight: 93.9 kg (207 lb) Height: 1.803 m (5' 11") General: aox4, nadHEENT: eomi, mmmCardio: rrr wo mrgResp: ctabGI: abd soft, nd, nttpMSK: ngdExt: no edema, peripheral pulses intactSkin: no rash on visible skinNeuro: no focal deficitsPsych: alert & cooperative Labs (pertinent only)/Imaging:Assessment/Plan:Blaine Silva is a 72 year old male admitted for need for cath due to NSTEMI.NeuroParkinson's disease- c/w sinemetRespNo acute problemsCardiovascularChest painNSTEMI type 1 vs type 2Lactic acidosis resolvedHTNHLDPt presenting with chest pain concerning for NSTEMI. Transfer to [facility] for [facility]. Will consult cards for [facility]. - Consult cards for [facility]- trend troponin- c/w ASA 81 mg daily- c/w Plavix 75 mg daily- heparin ggt- Coreg 3.125 mg BID- Atrovastatin 40 mg daily- Cardiac diet, EKG qAM and PRN chest pain, Telemetry, O2 per protocol, Electrolytes: Keep K >4, Mg>2 GIGERD- famotidine 20 mg BIDIDLactic acidosis resolvedInfectious work up ordered at [facility]. Given one dose of cefepime and levaquin. Continue with cefepime. - Cefepime 1 g Q8H- f/u bcx, ucxRenal/LytesNo acute problemsHeme/oncHx of metastatic prostate cancerLung mass 2/2 likely mets from prostate cancerPt with hx of metastatic prostate cancer. [facility]. [facility] thorax showed pulmonary mass. Will defer plan for biopsy for now given current ischemic heart work up.EndoDiabetes Mellitus 2- SSIOtherICU packet:Ventilation / Pressors Sedation / Paralyzation Vent mode: NPPV S/T Resp (Vent Total): 30FiO2 (%): 21 % PIP observed (cmH2O): 13 cmH2O -monitor Lines/Catheters, exchange prnDIET: Pre-Procedure Clear Liquid Diet Food Sensitivity Modifiers: No Red Dye; Procedure: Cardiac CathDVT ppx- hep ggtBowel reg: DulcolaxGI ppx: FamotidinePAIN: Tramadol, FentanylCode Status: FULL addressedDispo: MICUPrognosis: Janey Jason, [facility], PGY-2[place] Team ssociated attestation - Jeffrey Quesada MD - 11/25/2022 8:32 AM CDT Attending History Supplement: I personally examined the patient on 11/25/2022 and agree with the 's note as written . I actively participated in the decision-making process. Please see the resident's note for additional details. Blaine Silva is a 72 year old male with extensive cardiac Hx admitted for NSTEMI. Labs and imaging reviewed.Plan for [facility] ASA/heparin/statin/coregOther issues;H/o prostrate Ca.Jeffrey Quesada MD, MPHProfessor, Division of Pulmonary Critical Care and Sleep MedicineDirector MICU/SMON-[phone] [id number] and physical [id number], Gulshan1.2.840.725169.1.13.104.2.7.2 .462139YmygaeKhbocavDC7773-68-01H48: 32:06History and physical noteTXT1.2.840.431733.1.13.104.2.7.2 .048995|[id number] for patient kikv82589-4Kqvskmm and physical noteLNUT[address] Tj[id number] CIWBTDPXGVQJSUXSMCHLHF8203-60-24L74: 32:061.2.840.976424.1.72.3.15|1.2.84 0.748993.1.13.104.2.7.2.727879_18940 40950 2022-11-24 6293-02-87V18:08:12Formatting of [facility] 14:08:12 this note is different from the original.Medicine History & PhysicalDate of Service: 3[facility] facilityCC: Chest painHistory of Present Illness:Blaine Silva is a 72 year old male with past md hx of GERD, hypertension, hyperlipidemia, atrial fibrillation on anticoagulation status post pacemaker placement, diabetes mellitus type 2, prostate cancer status postchemotherapy approximately 2 month ago, history of stroke with left vertebral artery stenosis (seen by vascular surgery at [facility] recommendation for medical management with aspirin Plavix and intense statin therapy), coronary disease status post CABG in 2001, Parkinson's disease that presents to the ED for pain. Of note patient was just recently in [facility] for ischemic stroke. Patient was seen in the ED for chest pain with shortness of breath for less than 1 day intermittent in nature. He was seen in the ER previously with similar symptoms. Emergency department patient was noted to be afebrile hemodynamically stable. CBC shows no elevated white blood cell count. Initial chemistry shows elevated glucose of 171 mg/dL. Kidney function is noted to be normal. Initial troponin was negative. Patient did have an elevated lactic acid of 5.5 mmol/L. Repeat chemistry showed acidosis with bicarb of 19 mmol/L. Potassium was also noted to be decreased to 3.4 mmol/L. LFTs are noted to be normal. In the emergency department he did receive a CT angio showing no PE but he was showed bilateral pleural based lesion in the left lower lobe measuring 3.2 x 1.7 x 3.7 cm with multiple small pulmonary nodules in the left lower lobe measuring up to 5 mm. He was also noted to have a mixed lytic and sclerotic lesions of T11 with evidence of prior posterior decompression. KUB was done showing no dilated bowel loops. No free air under the diaphragm. Hospitalist call for admission.On exam patient is alert denies chest pain or shortness of breath at this time. Compliant with meds.ROS: Pt denies F / N / V / D / Constipation / cough / Abd pain / dysuria / hematuria / melena / hematochezia / rashes / suicidal or homicidal ideation / All others negativeReview of Hx/Meds:PMH: Past Medical History: Diagnosis Date Chronic pain Communication deficit GERD without esophagitis HLD (hyperlipidemia) HTN (hypertension) Hypokalemia Muscle weakness (generalized) Pacemaker Paraplegia, unspecified Parkinson's disease Polyneuropathy Prostatic hypertrophy Radiation induced proctitis Reduced mobility Sepsis, unspecified organism Type 2 diabetes mellitus without complications Ulcerative proctitis Urinary tract infection, site not specified PSH: has no past surgical history on file. Family Hx: Noncontributory unless mentioned aboveSocial History Tobacco Use Smoking status: Never Smokeless tobacco: Current Current Scheduled Medications Current IV Current Facility-Administered Medications: acetaminophen (TYLENOL) tablet 650 mg, 650 mg, Oral, Q6HPRN, Stone Adame MD atorvastatin (LIPITOR) tablet 40 mg, 40 mg, Oral, QHS, Stone Adame MD bisacodyL (DULCOLAX) suppository 10 mg, 10 mg, Rectal, QDAILYPRN, Stone Adame MD carbidopa-levodopa (SINEMET-25/100) 25-100 mg tablet 4 tablet, 4 tablet, Oral, QID, Stone Adame MD, 4 tablet at 11/24/22 1110 citalopram (CELEXA) tablet 40 mg, 40 mg, Oral, DAILY, Stone Adame MD, 40 mg at 11/24/22 1108 famotidine (PEPCID AC) tablet 20 mg, 20 mg, Oral, BID, Stone Adame MD FENTanyl (DURAGESIC) 50 mcg/hr patch 1 Patch, 1 Patch, Transdermal (Apply To Skin), ONCE Q 3DAYS, Stone Adame MD, 1 Patch at 11/24/22 0914 heparin (1,000 unit/mL, 10 mL vial) for Rebolusing, 3,000 Units, Slow IV Push, FOR REBOLUSING, Deb Rios FNP heparin 25,000 Units/250 mL (Premixed Bag) in 0.45 % NS, 0-2,750 Units/hr, IV Infusion, TITRATE, Deb Rios FNP HEPARIN SODIUM (PORCINE) 1,000 UNIT/ML BOLUS ACS ORDER SET, 4,000 Units, IV Push, ONCE, Deb Rios FNP NaCl 0.9% (NS) IV infusion 1,000 mL, 1,000 mL, IV Infusion, CONTINUOUS, Stone Adame MD, Last Rate: 75 mL/hr at 11/24/22 0719, 1,000 mL at 11/24/22 0719 ondansetron (ZOFRAN (PF)) injection 4 mg, 4 mg, Slow IV Push, Q6HPRN, Stone Adame MD tamsulosin (FLOMAX) capsule 0.4 mg, 0.4 mg, Oral, QHS, Stone Adame MD traMADoL (ULTRAM) tablet 50 mg, 50 mg, Oral, Q8HPRN, Stone Adame MD, 50 mg at 11/24/22 0913Objective:Vitals:Vitals: 11/24/22 0535 11/24/22 0740 11/24/22 0812 11/24/22 1141 BP: (!) 162/92 (!) 174/88 (!) 159/83 BP Location: Left arm Pulse: 73 72 78 Resp: 18 18 Temp: 36.2 ?C (97.1 ?F) 36.4 ?C (97.6 ?F) 36.1 ?C (96.9 ?F) TempSrc: SpO2: 97% 99% 99% 95% Weight: 94.3 kg (207 lb 14.4 oz) Height: I/O's:Intake/Output Summary (Last 24 hours) at 11/24/2022 1408Last data filed at 11/24/2022 0540Gross per 24 hour Intake 150 ml Output 3550 ml Net -3400 ml Physical Exam:General: NAD, Alert, lying in bed comfortable, cogent speech, L.HEENT: anicteric, oral mucosa dryNeck: supple, no JVD, no bruits.Chest: CTA B/L, no W/R/C.Heart: RRR, S1/S2, no M/G/RAbdominal: BS normoactive, soft, ND, NT.Skin/Extremities: no rash, no cyanosis, warm and dry, no LE edema.Neurological: CN II-XII grossly intact, no focal deficits.Labs:BMP:BMP NA (mmol/L) Date Value 11/23/2022 131 (L) 11/22/2022 136 06/05/2020 135 K (mmol/L) Date Value 11/23/2022 3.4 (L) 11/22/2022 3.7 06/05/2020 4.5 CALCIUM (mg/dL) Date Value 11/23/2022 8.7 11/22/2022 8.5 (L) 06/05/2020 9.0 CL (mmol/L) Date Value 11/23/2022 99 11/22/2022 101 06/05/2020 99 BUN (mg/dL) Date Value 11/23/2022 6 (L) 11/22/2022 6 (L) 06/05/2020 25 (H) CREATININE (mg/dL) Date Value 11/23/2022 0.42 (L) 11/22/2022 0.47 (L) 06/05/2020 1.31 (H) GLUCOSE (mg/dL) Date Value 11/23/2022 118 (H) 11/22/2022 171 (H) 06/05/2020 203 (H) CO2 TOTAL (mmol/L) Date Value 11/23/2022 19 (L) 11/22/2022 29 06/05/2020 27 CBC:CBCWBC (10*3/?L) Date Value 11/23/2022 6.34 RBC (10*6/?L) Date Value 11/23/2022 4.33 PLT (10*3/?L) Date Value 11/23/2022 260 HGB (g/dL) Date Value 11/23/2022 11.7 (L) HCT (%) Date Value 11/23/2022 35.5 (L) BMP:Hepatic Function PanelALBUMIN (g/dL) Date Value 11/23/2022 3.9 T PROTEIN (g/dL) Date Value 11/23/2022 6.9 TOTAL BILI (mg/dL) Date Value 11/23/2022 0.9 ALTv (U/L) Date Value 11/23/2022 28 AST(SGOT) (U/L) Date Value 11/23/2022 31 ALK PHOS (U/L) Date Value 11/23/2022 64 Troponin: Recent Labs TROPNI 3.690* I have reviewed all relevant labsImaging:XR KUBResult Date: 11/24/2022ORDERING PHYSICIAN: ALEXANDRIA HENLEY CLINICAL HISTORY: Elevated left thoracic acid TECHNIQUE: Frontal view of abdomen COMPARISON: None available. FINDINGS: There are no dilated loops of bowel. There is no evidence for obstruction. There is no free air. There are no abnormal calcifications. Osseous structures are intact. There are no dilated loops of bowel. There is no evidence for obstruction. There is no free air. There are no abnormal calcifications. Osseous structures are intact. RL: [id number] CHEST PULMONARY ANGIOGRAMResult Date: 11/23/2022Ordering physician: ETIENNE VEGAZADI Indication: Chest pain, short of breath Comparison: Chest radiograph dated 11/23/2022, CTA chest dated 11/22/2022 Technique: CTA of the chest was performed following the administration of intravenous contrast material. Three-dimensional reformats were generated following completion of the exam. CT scan was performed according to ALARA (as low as reasonably achievable) policy. Findings: The visualized thyroid gland is within normal limits. There is no thoracic aortic aneurysm or dissection. The heart is normal in size without significant pericardial effusion. There is a multilead pacemaker. The patient is status post median sternotomy. Right internal jugular port catheter terminates in the distal SVC. No filling defect is appreciated in the pulmonary arteries to the level of the lobar pulmonary arteries. The segmental and subsegmental arteries cannot be adequately evaluated due to poor opacification. No pathologically enlarged mediastinal or hilar lymph nodes are identified. No acute process is identified in the upper abdomen. There is redemonstration of a bilobed pleural-based lesion in the left lower lobe, measuring 3.2 x 1.6 x 3.7 cm (series 6, image 86). There are additional pulmonary nodules in the left lower lobe, measuring up to 5 mm (series 9, image 143). There is redemonstration of a destructive lesion of T11 with previous posterior decompression. Impression: No large central pulmonary embolus to the level of the lobar pulmonary arteries. The segmental and subsegmental arteries cannot be adequately evaluated due to poor opacification. Redemonstration of bilateral pleural-based lesion in the left lower lobe measuring 3.2 x 1.6 x 3.7 cm. Multiple additional smaller pulmonary nodules in the left lower lobe, measuring up to 5 mm. No superimposed acute pulmonary process. Redemonstration of mixed lytic and sclerotic lesion of T11 with evidence for prior posterior decompression. RL: 460 AFC: [id number] XR CHEST 1 VWResult Date: 11/23/2022Ordering physician: ETIENNE HANCOCK Indication: Chest pain Comparison: Chest dated 11/22/2022 Technical quality: Adequate Findings: Single AP view of the chest. Right internal jugular port catheter terminates in SVC. The cardiopericardial silhouette is stably enlarged. There is a multilead pacemaker. The patient is status post median sternotomy. The lungs are clear bilaterally. The visualized bony thorax is intact. Impression: Stable cardiomegaly with multilead pacemaker. Status post median sternotomy. No radiographic evidence for acute pulmonary process. END REPORT RL: 460 AFC: [id number] CT THORAX WO CONTRASTResult Date: 11/22/2022ORDERING PROVIDER: EDIE ELIAS HISTORY: Respiratory illness, nondiagnostic xray TECHNIQUE: Axial CT images of the chest were obtained without IV contrast. Coronal and sagittal reformations were generated and evaluated. CT scan is performed using the ALARA principle. Technical Quality: Adequate COMPARISON: CXR 11/22/2022 FINDINGS: Airways: The trachea is patent. There appear to be endobronchial secretions at the left mainstem bronchus, with convex margins making a polypoid lesion difficult to entirely exclude. No bronchial obstruction. Lungs: Adequate pulmonary volumes without evidence of acute airspace disease. There is a bilobed pleural-based masslike opacity at the posterior basal left lower lobe measuring up to measuring approximately 1.5 x 3.2 x 3.1 cm (AP by TR by CC, 9:153). This is favored to be within the pulmonary parenchyma given the pattern. There is a 5 mm subpleural pulmonary nodule superior segment right lower lobe (9:110). Calcified granuloma posterior left upper lobe. Pleura: Trace left pleural effusion. No right pleural effusion. No pneumothorax. Heart and mediastinum: The heart is normal in size. No pericardial effusion. Severe coronary artery calcifications with changes of prior CABG. Indwelling pacemaker leads are seen in the right heart. No pathologically enlarged mediastinal lymph nodes are detected on this noncontrast exam. Vasculature: The aorta and pulmonary arteries have a normal noncontrast appearance. Aortic atherosclerotic disease is identified. Chest wall: The chest wall soft tissues are nonacute. No pathologically enlarged axillary lymph nodes. Partially visualized lower cervical ACDF hardware. Degenerative changes are seen in the spine. There is a mixed lucent and sclerotic lesion at the T11 posterior vertebral body and left pedicle. There are changes of prior to 10-T11 decompressive laminectomy. There is a chronic appearing anterior L1 vertebral body compression deformity Upper abdomen: The visualized upper abdomen is unremarkable. 1. No acute or consolidative airspace disease detected. 2. Bilobed pleural-based pulmonary mass along the posterior basal left lower lobe, measuring up to 3.2 cm; suspicious for malignancy or metastatic disease until proven otherwise. Trace left pleural effusion may be related. Given the thoracic spine findings described in impression #5 comparison to prior imaging recommended as available. 3. Additional indeterminate 5 mm subpleural pulmonary nodule superior segment right lower lobe. 4. Aortic atherosclerosis and severe coronary calcifications with findings of prior CABG. Indwelling dual-chamber pacemaker. 5. Mixed lytic and sclerotic osseous lesion at the posterior T11 vertebral body left pedicle. Overlying T10-T11 decompressive laminectomy changes. Comparison to prior imaging recommended to document stability. RL: [id number] End of report. XR CHEST 1 VWResult Date: 11/22/2022EXAM: XR CHEST 1 VW COMPARISON: Chest x-ray 06/05/2020 HISTORY: dyspnea FINDINGS: Left-sided pacemaker with leads projecting over the right atrium and ventricle. Right-sided chest port with catheter tip projecting over the distal SVC. ACDF of hardware is also present. The lungs are moderately well-expanded. No pneumothorax. Small right pleural effusion. There is hilar vascular congestion and mild fissural thickening. Streaky perihilar opacities are present. The cardiac silhouette appears enlarged accounting for technique. No focal osseous lesions or acute osseous findings are detected. Mild pulmonary edema. Perihilar opacities are favored to represent atelectasis accentuated by patient rotation. Preliminary Report Dictated by Resident: Larry Virk MD., have reviewed this study and agree with the above report. Assessment and plan:Principal Problem: Other form of dyspneaChest pain / NSTEMI / CAD w/ CABG: Noted rising troponin at this time EKG shows no acute ST changes, denies chest pain on exam at this time- Cardiology consult- Continue telemetry- Start heparin drip- Continue aspirin Plavix- Nitro as needed for CPLactic acidosis: Unclear etiology, patient is afebrile but noted metastatic CA status post recent chemotherapy therefore concern for possible immune suppression- Follow-up UA and culture- Start cefepime- Follow-up blood cultures- Trend fever white blood cell count- Trend lactic acidHistory of atrial fibrillation:- Not on rate control at this time- Hold Xarelto in the setting of heparin dripLung/pleural lesion:- Pulmonary consultHypertension: No medications on current list- Start CoregHyperlipidemia:- Continue statinDiabetes mellitus 2:- Start insulin sliding scaleParkinson's disease:- Continue SinemetProstate cancer:- Follow-up outpatient with primary oncology teamAddendum: Overall patient has continued to have elevated lactic acid of unclear etiology along with rising Troponin. On my repeat exam he denied any chest pain but was complaining of abdominal/pelvic pain. He did receive a CT angio of chest in the ED on admission and I have placed a CT abdomen pelvis with contrast but I am awaiting clearance of prior contrast. We will give fluid bolus for nephro protection. Continue on broad-spectrum antibiotics for unclear source of sepsis / lactic acidosis (?ischemic cause). Continue to trend lactic acid. Given multiple comorbidities and active NSTEMI thought secondary to infectious cause. Case was discussed with cardiology. He did receive a cardiac echo showing per verbal report septal and inferior wall motion abnormalities. Discussed with cardiology recommendation to transfer for possible cardiac cath along with TX of lactic acid. Case discussed with primary steel tier Dr. Sánchez who wished for him to be transferred to [facility] refused transfer there for further discussion with cardiology plan to transfer for [place]. spoke to MICU / CCU attendings in [place] who has accepted patient for continued care. Plan MICU acceptance with cards / CCU consult. DVT prophylaxis: Heparin drip [place] [employer] OPER[employer] was verifiedDisposition: Trend troponin, follow-up cardiac echo, follow-up cardiac evaluation Signed:Alexandria Henley DO11/24/2022 24285-6Xiqsmvi and physical wkdsGK1101-03-83E42:02:35History and physical noteTXT1.2.840.736491.1.13.104.2.7.2 .207873|[id number] for patient cdfl94023-0Widjkuz and physical noteLNUT47 Alvarez [id number] PGRLIGFUWVAENNOORCJTMS3916-12-81J05: 02:351.2.840.668508.1.72.3.15|1.2.84 0.118546.1.13.104.2.7.2.727879_18938 72305 Procedure Notes Date/Time Note Provider Source 2022-11-25 14:13:00 4386-27-90Q02:13:00Formatting -[facility] of this note might be CARDIOLOGY STAFF different from the original. Left Heart Cath/Coronary Angiography/PCI\\/PTCADate of Service: 11/25/2022 2:13 PMIndication/Diagnosis: 72 y M with PMH of CAD (s/p CABG), DM-2, HTN, HLD, PPM, paraplegia, metastatic prostate Ca, who presented to [facility] for abdominal pain and CP for 1 day. Trop 0.019, 3.7. TTE showed septal, inferoseptal HK. Also had lactic acidosis on admission and CXR showed a lung mass (possible mets). Fellow: Dr Morocho out completed: yesAseptic technique: ChlorprepLocal Anesthesia: 1% lidocaine without epinephrineSedation: fentanyl 125 mcg, Versed 5 mgAccess site: right femoral arteryClosure Method: PercloseComplications: noneProcedure Details:LHC5 Fr RFA5 Fr JL4, JL5 to LM5 Fr Jr4 to LV (LVEDP and pullback across aortic valve), RCA, SVG-RCA, subclavian4 Fr TJ to LIMAAttempted to engage grafts with AL-1PCI6 Fr RFA6 Fr EBU 4.0 Lesion 1 (prox Lcx 99% heavily calcified)Lesion 2 (ostial ramus 90%)RT to Lcx, BMW to ramusUnable to deliver 2.5 x 12 NC, 2.0 x 8 comp, 1.2 x [address] comp [address] LcxCould not place mike wireUsed finecross to switch to BHWStill unable to deliver2.5 x 12 NC to ramus2.5 x 24 mm synergy XDPostdil with 2.5 [address] 2[address]0 x 8 and 1.2 x 8 into Lcx using 2.5 NC anchor in ramus, however it was too tight at guide tip and balloons kinkedWe attempted to deliver corsair with spinning to Lcx but unablePredil Lcx (grenadoplasty) with 2.0 x 8 compPerclose (1st failed, 2nd at 10 oclock)250 cc contrastPost-Procedure Sedation AddendumImmediately prior to start of sedation, the patient was evaluated and there was no change from the pre-procedure evaluation. I was present and directed medical care.The patient underwent moderate sedation for the procedure. The medications administered were recorded in the MAR; oxygenation, ventilation and circulation were monitored continuously and were recorded in the EMR. I evaluated the patient after the procedure.The patient was evaluated immediately as recovering from sedation. Complications: noneFindings:Coronary dominance: rightLeft main: Mild atheroLAD: Ostial LAD 100% CREATIVE ARTS THERAPIST Mid/distal LAD mild athero and fills via LIMARI: Ostial ramus 90% (s/p PCI)LCX: Prox Lcx 99% (attempted PCI but unable to deliver anything) Distal Lcx fills a parallel Lcx with OM system via L-L collaterals OM system: Fills via L-L collateralsRCA: Ostial RCA 100% CREATIVE ARTS THERAPIST Marginals and PDA/PL fill via grade 2 L-R collaterals (from ZHU-LAD)Grafts: ZHU-LAD: PatentSVG-RCA/PDA: Occluded proxNo other grafts visualizedLVEDP: 8Right Brachiocephalic Angiogram: Patent, no CARSON visualizedLeft Subclavian Angiogram: No ostial/prox stenosisRight External Iliac angiogram: EIA tortuous, mild atheroCFA 30% heavily calcifiedImpression:Severe capitan grande band diseaseOstial LAD 100% CTOOstial ramus 90% s/p PCI (2.5 x 24 mm Synergy NATALIYA)Prox Lcx 99% heavily calcified (unable to deliver balloon/stent)Ostial RCA 100% CREATIVE ARTS THERAPIST (distal RCA fills via L-R collaterals)Bypass graftsPatent ZHU -LADOccluded SVG-RCA/PDANo other bypass grafts visualizedNormal LV filling pressuresPlan:NS 1 ml/kg/hr for 3 hoursAspirin 81 daily lifelongPlavix 75 daily 1 yearAggressive medical Rx and anti anginalsIf he continues to have anginal symptoms, PCI of Lcx would require rotational atherectomy which is risky due to small size vessel and angulationFindings and plan discussed with pt and primary team (Dr Guillen).I performed this procedure and supervised the fellow. I was present for the entire duration of the procedure. Jaki Ramirez MD 11/25/2022 2:13 PM 40528-3Cinhrqkqi zwqzKT8790-79-39C67:47:51Proce dure noteTXT1.2.840.836362.1.13.104 .[id number] [facility] gsmz03453-9Egqegiptd noteLNIM-INTERVENTIONAL CARDIOLOGY STAFFIM-INTERVENTIONAL CARDIOLOGY STAFF51 Smith StreetTXTX[address] [id number] 11-12-07T16:47:511.2.840.28253 0.1.72.3.15|1.2.840.291899.1.1 3.104.2.7.2.727879_[id number]
[2022-12-29 16:45] LABS: Absolute Lymphocytes (CBC) 1.8 K/uL (0.7-4.9); Hematocrit 33.5 % (39.6-49.0); Lymphocytes % 22.8 % (15.3-44.8); MCV 77.6 fL (80-100); MPV 5.8 fL (7.6-11.3); Platelets 435 thou/uL (152-406); RBC Red Blood Cell Count 4.31 M/uL (4.33-5.43)
[2022-12-29] MEDS ORDERED: CEFTRIAXONE 1000 MG/VIAL ONE (17:11)
[2022-12-29 17:45] LABS: AST/SGOT 17 U/L (15-37); Albumin 2.5 g/dL (3.4-5.0); Alkaline Phosphatase 70 U/L (45-117); BUN Blood Urea Nitrogen 6 mg/dL (7-18); Bicarbonate 29 mEq/L (21-32); Bilirubin Total 0.6 mg/dL (0.2-1.0); Glomerular Filtration Rate 114 ml/min (=/>90); Glucose Level 119 mg/dL (74-106); Potassium 3.8 mEq/L (3.5-5.1); Protein, Total 6.4 g/dL (6.4-8.2); Sodium Level 134 mEq/L (136-145)
[2022-12-29 17:52] LABS: ALT/SGPT < 10 U/L (16-61)
[2022-12-29] MEDS ORDERED: VANCOMYCIN 1.75 GM in NA CHLORIDE 0.9% 500 ML IVPB ONE (18:00)
--- NOTE | 2022-12-29 18:40 | RAD REPORT ---
EXAM DESCRIPTION: CT - Pelvis W/Cont - 12/29/2022 6:23 pm CLINICAL HISTORY: sacral wound Deep soft tissue sacral wound. COMPARISON: No comparisons TECHNIQUE: All CT scans are performed using dose optimization technique as appropriate and may inclu de automated exposure control or mA/KV adjustment according to patient size. FINDINGS: A deep soft tissue wound is seen midline posteroinferior to the sacrum measuring 3.2 cm in depth. No associated fluid collections. Mild fat stranding is seen in the presacral fat. Moderate re tained stool in the rectosigmoid colon. Mild diverticulosis coli. No intrapelvic abscess seen. No evidence of osteomyelitis. IMPRESSION: Deep soft tissue wound is seen the inferior to the sacrum lower posterior midline. This does not appear to extend into the intrapelvic cavity. No associated osteomyelitis or abscess evident .
--- NOTE | 2022-12-29 19:09 | EDPHYS ---
Physician Documentation [facility] Name: Blaine Silva Jr Age: 72 yrs Sex: Male : 1950 Arrival Date: 12/29/2022 Time: 15:18 Bed 13 Private MD: ED Physician Joselin Willis HPI: 12/29 15:45 This 72 yrs old Male presents to ER via EMS with unknown complaint. sd2 15:45 72 yo M presents via EMS with CC of worsening sacral wound. at reports wound sd2 present starting 3-4 weeks ago when released from hospital in [place]. She has been performing wound care at home but it worsened acutely today and "burst open" with increased drainage and depth of the wound. Denies fevers but endorses nausea. Denies vomiting, diarrhea, pain or other systemic symptoms. Pt does have Stage 4 spinal cancer which he gets injections for every [address] Baker. He is currently paralyzed from the waist down due to the cancer. . Historical: - Allergies: 15:28 No Known Allergies; ll1 - PMHx: 15:28 Prostate Cancer; Spinal Tumor; stroke; Myocardial infarction; ll1 - PSHx: 15:28 pacemaker; tripple bypass; heart stent (tripple bypass); ll1 - Immunization history:: Client reports receiving the 2nd dose of the Covid vaccine. - Social history:: Smoking status: Patient reports use of chewing tobacco. ROS: 15:45 Constitutional: Negative for fever, chills, and weight loss, Eyes: Negative for injury, sd2 pain, redness, and discharge, Cardiovascular: Negative for chest pain, palpitations, and edema, Respiratory: Negative for shortness of breath, cough, wheezing. Abdomen/GI: Negative for abdominal pain, nausea, vomiting, diarrhea. Back: Negative for injury and pain, MS/Extremity: Negative for injury and deformity, Skin: Negative for injury, rash, and discoloration, Positive for wound Exam: 15:45 Constitutional: This is a well developed, well nourished patient who is awake, alert, sd2 and in no acute distress. Head/Face: Normocephalic, atraumatic. Eyes: EOMI, normal conjunctiva bilaterally Chest/axilla: Normal chest wall appearance and motion. Nontender with no deformity. Cardiovascular: Regular rate and rhythm with a normal S1 and S2. No gallops, murmurs, or rubs. 2+ distal pulses. Respiratory: Lungs have equal breath sounds bilaterally, clear to auscultation and percussion. No rales, rhonchi or wheezes noted. No increased work of breathing, no retractions or nasal flaring. Abdomen/GI: Soft, non-tender, with normal bowel sounds. No guarding or rebound. No evidence of tenderness throughout. Skin: Stage 3 sacral decubitus ulcer noted with purulent foul smelling drainage. No surrounding significant erythema, induration or fluctuance. MS/ Extremity: Pulses equal, no cyanosis. Neurovascular intact. Full, normal range of motion. Psych: Awake, alert, with orientation to person, place and time. Behavior, mood, and affect are within normal limits. Vital Signs: 15:29 BP 120 / 64; Pulse 60; Resp 16; Temp 98.3; Pulse Ox 96% on R/A; Weight 88.45 kg; Height ll1 5 ft. 10 in. ; 16:00 BP 125 / 72; Pulse 59; Resp 16; Pulse Ox 95% ; cp4 16:30 BP 128 / 72; Pulse 56; Resp 16; Pulse Ox 92% ; cp4 17:00 BP 123 / 66; Pulse 60; Resp 18; Pulse Ox 97% ; cp4 21:07 BP 128 / 76; Pulse 59; Pulse Ox 98% on R/A; ap3 15:29 Body Mass Index 27.98 (88.45 kg, 177.8 cm) ll1 MDM: 15:34 Patient medically screened. sd2 15:45 Differential Diagnosis wound infection, osteomyelitis, cellulitis, abscess among sd2 others. Data reviewed: vital signs, nurses notes, EMS record, lab test result(s), radiologic studies. I considered the following discharge prescriptions or medication management in the emergency department Medications were administered in the Emergency Department. See MAY. 19:10 Management of patient was discussed with the following: Hospitalist: Paul Murillo NP cp will admit after discussion of today's labs and radiology studies. 12/29 15:45 Order name: CBC with Diff; Complete Time: 16:59 sd2 12/29 19:05 Interpretation: Normal except: RBC 4.31; HGB 11.3; HCT 33.5; MCV 77.6; MCH 26.2; PLT cp 435; RDW 16.9; MPV 5.8. 12/29 15:45 Order name: CMP; Complete Time: 17:59 sd2 12/29 19:05 Interpretation: Normal except: NA 134; GLUC 119; BUN 6; CRE 0.41; ALT < 10; ALB 2.5; cp GLOB 3.9; A/G 0.6. 12/29 15:45 Order name: Wound Culture sd2 12/29 15:45 Order name: Lactate w/ 2H reflex if indic.; Complete Time: 17:41 sd2 12/29 15:45 Order name: Procalcitonin; Complete Time: 17:41 sd2 12/29 15:45 Order name: Blood Culture Adult (2) sd2 12/29 18:21 Order name: Vancomycin Level Trough EDMS 12/29 15:45 Order name: CT Pelvis w cont; Complete Time: 19:03 sd2 12/29 15:45 Order name: Wound Care; Complete Time: 16:58 sd2 12/29 16:47 Order name: Labs - recollect needed: make sure the DUARTE TOP is a blood tube and not bc6 urine ; Complete Time: 17:09 Administered Medications: 17:09 Drug: Rocephin IV 1 grams IV at bolus once; Given slow IV push per pharmacy cp4 instructions Route: IV; Rate: bolus; Site: left forearm; 21:13 Follow up: Response: No adverse reaction; IV Status: Completed infusion ap3 17:56 Drug: vancoMYCIN IVPB 15 mg/kg IVPB once; once over 2 hrs; not to exceed 2 grams; (mix cp4 in 250 to 500 mL NS) Route: IVPB; Site: left antecubital; 21:55 Follow up: IV Status: Completed infusion ap3 21:07 Drug: morphine IVP or IV 2 mg IVP once over 4 mins Route: IVP; Infused Over: 4 mins; ap3 Site: left forearm; 21:54 Follow up: Response: No adverse reaction; Pain is decreased ap3 21:55 Not Given (Patient Refused): morphineor iv 2 mg IVP once over 4 mins ap3 Disposition Summary: 12/29/22 19:08 Hospitalization Ordered Notes: Hospitalization Status: Inpatient Admission cp Provider: Srinath Crawford cp Location: Telemetry/[facility]Sur (Inpatient) cp Condition: Stable cp Problem: new cp Symptoms: have improved cp Bed/Room Type: Standard cp Room Assignment: 218(12/29/22 19:55) cg Diagnosis - Pressure ulcer of buttock cp Forms: - Medication Reconciliation Form cp - SBAR form cp - Leadership Thank You Letter cp Signatures: Dispatcher [employer] Blas Barker PA PA cp Garcia, Cindy, RN RN cg Shanique Raymond RN RN ap3 Liss Jack RN RN ll1 Joselin Willis MD MD sd2 Virginia Medina6 Sharon Hatfield cp4 Corrections: (The following items were deleted from the chart) 19:55 19:08 cp cg
--- NOTE | 2022-12-29 19:09 | ER ---
Nurse's Notes [facility] Name: Blaine Silva Jr Age: 72 yrs Sex: Male : 1950 Arrival Date: 12/29/2022 Time: 15:18 Bed 13 Private MD: Diagnosis: Pressure ulcer of buttock Presentation: 12/29 15:29 Chief complaint: Patient states: Sacral bed sore for 3 weeks. Yesterday the site burst ll1 and looks very deep now. Took hydrocodone and gabapentin at 1300 for pain with a Fentanyl patch on L arm. Coronavirus screen: Vaccine status: Patient reports receiving the 2nd dose of the covid vaccine. Client denies travel out of the [place] in the last 14 days. At this time, the client does not indicate any symptoms associated with coronavirus-19. Ebola Screen: Patient denies travel to an Ebola-affected area in the 21 days before illness onset. Initial Sepsis Screen: Does the patient meet any 2 criteria? No. Patient's initial sepsis screen is negative. Does the patient have a suspected source of infection? Yes: Skin breakdown/wound. Risk Assessment: Do you want to hurt yourself or someone else? Patient reports no desire to harm self or others. Onset of symptoms was December 12, 2022. 15:29 Method Of Arrival: EMS ll1 15:29 Acuity: FAWN 2 ll1 Historical: - Allergies: 15:28 No Known Allergies; ll1 - PMHx: 15:28 Prostate Cancer; Spinal Tumor; stroke; Myocardial infarction; ll1 - PSHx: 15:28 pacemaker; tripple bypass; heart stent (tripple bypass); ll1 - Immunization history:: Client reports receiving the 2nd dose of the Covid vaccine. - Social history:: Smoking status: Patient reports use of chewing tobacco. Screenin:20 [facility] ED Fall Risk Assessment (Adult) History of falling in the last 3 months, cp4 including since admission No falls in past 3 months (0 pts) Confusion or Disorientation No (0 pts) Intoxicated or Sedated No (0 pts) Impaired Gait No (0 pts) Mobility Assist Device Used No (0 pt) Altered Elimination No (0 pt) Score/Fall Risk Level 0 - 2 = Low Risk. [facility] ED Fall Risk Assessment (Adult) Score/Fall Risk Level 0 - 2 = Low Risk Oriented to surroundings, Maintained a safe environment, Educated pt \T\ family on fall prevention, incl call for assistance when getting out of bed, Hourly rounding (assess needs \T\ fall precautionary measures) done. Abuse screen: Denies threats or abuse. Nutritional screening: No deficits noted. Tuberculosis screening: No symptoms or risk factors identified. Assessment: 17:20 General: Appears in no apparent distress. Behavior is calm, cooperative, appropriate cp4 for age. Pain: Complains of pain in buttocks. Derm: Decubitus located on sacrum. 21:08 General: Appears in no apparent distress. Behavior is cooperative, appropriate for age. ap3 Pain: Complains of pain in buttocks. Neuro: Level of Consciousness is awake, alert, obeys commands, Oriented to person, place, time. Cardiovascular: Patient's skin is warm and dry. Respiratory: Airway is patent Respiratory effort is even, unlabored, Respiratory pattern is regular, symmetrical. 21:11 General: attempted to call report. was informed the receiving nurse will return my call.ap3 Vital Signs: 15:29 BP 120 / 64; Pulse 60; Resp 16; Temp 98.3; Pulse Ox 96% on R/A; Weight 88.45 kg; Height ll1 5 ft. 10 in. ; 16:00 BP 125 / 72; Pulse 59; Resp 16; Pulse Ox 95% ; cp4 16:30 BP 128 / 72; Pulse 56; Resp 16; Pulse Ox 92% ; cp4 17:00 BP 123 / 66; Pulse 60; Resp 18; Pulse Ox 97% ; cp4 21:07 BP 128 / 76; Pulse 59; Pulse Ox 98% on R/A; ap3 15:29 Body Mass Index 27.98 (88.45 kg, 177.8 cm) ll1 ED Course: 15:28 Patient arrived in ED. ll1 15:31 Triage completed. ll1 15:31 Arm band placed on Patient placed in an exam room, on a stretcher. ll1 15:32 Maintain EMS IV. Gauge \T\ site: 20 L FA. ll1 15:34 Joselin Willis MD is Attending Physician. sd2 16:00 Sharon Hatfield is Primary Nurse. cp4 16:58 Blood Culture Adult (2) Sent. cp4 16:58 Procalcitonin Sent. cp4 16:58 Lactate w/ 2H reflex if indic. Sent. cp4 16:58 Wound Culture Sent. cp4 16:58 CMP Sent. cp4 17:20 Bed in low position. Call light in reach. Side rails up X2. cp4 17:20 No provider procedures requiring assistance completed. Maintain EMS IV. Dressing cp4 intact. Good blood return noted. Site clean \T\ dry. Gauge \T\ site: 20G left forearm . 18:01 Blas Stallings PA is PHCP. cp 18:25 CT Pelvis w cont In Process Unspecified. EDMS 19:05 Srinath Crawford MD is Hospitalizing Provider. cp 21:12 Provided Education on: medication prior to administration. ap3 21:55 Patient admitted, IV remains in place. ap3 Administered Medications: 17:09 Drug: Rocephin IV 1 grams IV at bolus once; Given slow IV push per pharmacy cp4 instructions Route: IV; Rate: bolus; Site: left forearm; 21:13 Follow up: Response: No adverse reaction; IV Status: Completed infusion ap3 17:56 Drug: vancoMYCIN IVPB 15 mg/kg IVPB once; once over 2 hrs; not to exceed 2 grams; (mix cp4 in 250 to 500 mL NS) Route: IVPB; Site: left antecubital; 21:55 Follow up: IV Status: Completed infusion ap3 21:07 Drug: morphine IVP or IV 2 mg IVP once over 4 mins Route: IVP; Infused Over: 4 mins; ap3 Site: left forearm; 21:54 Follow up: Response: No adverse reaction; Pain is decreased ap3 21:55 Not Given (Patient Refused): morphineor iv 2 mg IVP once over 4 mins ap3 Medication: 17:20 VIS not applicable for this client. cp4 Outcome: 19:08 Decision to Hospitalize by Provider. cp 21:55 Admitted to Med/surg ap3 21:55 Condition: good 21:55 Instructed on the need for admit, 21:55 Patient left the ED. ap3 Signatures: Dispatcher [employer] EDOR Blas Stallings PA PA cp Prokisch, Amanda, RN RN ap3 Liss Jack RN RN ll1 Joselin Willis MD MD ga2 Sharon Hatfield cp4
--- NOTE | 2022-12-29 20:04 | P.HP ---
Certification for Inpatient Patient admitted to: Inpatient With expected LOS: >2 Midnights Patient will require the following post-hospital care: None Practitioner: I am a practitioner with admitting privileges, knowledge of patient current condition, hospital course, and medical plan of care. Services: Services provided to patient in accordance with Admission requirements found in Title 42 Section 412.3 of the Code of Federal Regulations Patient History Date of Service: 12/29/22 Reason for admission: Sacral decubitus ulceration History of Present Illness: 72-year-old male with history of spinal tumor status post excision resulting in lower extremity paralysis, stage IV prostate cancer/lung cancer, CAD with previous CABG presents emergency department with concern for wound to the sacral area. Patient has been paralyzed from the waist down since January 2022, over the past few months has had worsening of a wound to his sacral area. Family has had a hospital bed at home but no home health or other resources, large sacral decubitus ulceration with mucoid tissue present to sacral area. His labs were significant for hemoglobin 11.3 hematocrit 33.5 sodium 134 lactic acid 1.7 procalcitonin less than 0.05 CT pelvis was performed which showed deep soft tissue wound is seen in the inferior to the sacrum lower posterior midline. This does not appear to extend into the intrapelvic cavity. No associated osteomyelitis or abscess evident. ED wishes to admit for sacral decubitus ulceration. Allergies No Known Allergies Allergy (Unverified 09/29/21 20:08) Home Medications: Acetaminophen [Tylenol] 325 mg PO Q6H PRN 09/30/21 Aspirin [Aspirin EC 81 MG] 81 mg PO DAILY 09/30/21 Atorvastatin Calcium [Lipitor] 40 mg PO BEDTIME 09/30/21 Carbidopa/Levodopa [Sinemet 25-100 mg Tablet] 4 each PO BID 09/30/21 Clopidogrel Bisulfate [Plavix] 75 mg PO DAILY 09/30/21 Citalopram Hydrobromide [Citalopram HBr] 40 mg PO DAILY 11/01/22 Famotidine 20 mg PO Q12HP 11/01/22 Gabapentin 300 mg PO TID 11/01/22 Gabapentin 600 mg PO BEDTIME 11/01/22 Isosorbide Mononitrate [Isosorbide Mononitrate ER] 30 mg PO DAILY 11/01/22 Tamsulosin [Flomax*] 1 cap PO DAILY 11/01/22 methocarbamoL [Methocarbamol] 500 mg PO BID PRN 11/01/22 Apixaban [Eliquis] 1 tab PO BID 11/02/22 Cholecalciferol (Vitamin D3) [Vitamin D3] 1 tab PO DAILY 11/02/22 Docusate [Colace Cap*] 100 mg PO BID cap 11/14/22 Ensure Clear 237 ml PO BID can 11/14/22 Fentanyl Patch [Duragesic Patch*] 50 mcg TD Q72H #2 patch 11/14/22 Hydrocodone 7.5/APAP 325 [[place] 7.5/325 mg*] 1 tab PO TID PRN #12 tab 11/14/22 Nystatin Oint [Mycostatin 100 Mu/Gm Oint*] 1 chris TP BID #1 ea 11/14/22 Potassium Oral Tab [Klor-Con 10 mEq Tab*] 20 meq PO DAILY tab 11/14/22 - Past Medical/Surgical History Diabetic: Yes -: DM -: Stroke -: prostate cancer metatasized -: Spinal tumor status post excision with resulting lower extremity paralysis -: Stage IV prostate/lung cancer -: CAD with previous CABG -: triple bypass -: multiple back surgerys Psychosocial/ Personal History: Lives at home with . - Family History Family History: Reviewed- Non-Contributory - Social History Smoking Status: Never smoker Alcohol use: No CD- Drugs: No Caffeine use: Yes Place of Residence: Home Review of Systems 10-point ROS is otherwise unremarkable Integumentary: As per HPI Physical Examination - Physical Exam General: Alert, In no apparent distress, Oriented x3 HEENT: Atraumatic, PERRLA, Mucous membr. moist/pink, EOMI, Sclerae nonicteric Neck: Supple, 2+ carotid pulse no bruit, No LAD, Without JVD or thyroid abnormality Respiratory: Clear to auscultation bilaterally, Normal air movement Cardiovascular: Regular rate/rhythm, Normal S1 S2 Capillary refill: <2 Seconds Gastrointestinal: Normal bowel sounds, No tenderness Musculoskeletal: No tenderness Integumentary: No rashes, Pressure ulcer Neurological: Normal speech, Normal tone, Normal affect, Abnormal strength (Lower ext paralysis) - Studies Laboratory Data (last 24 hrs) 12/29/22 12/29/22 16:10 16:10 WBC 8.10 Hgb 11.3 L Hct 33.5 L Plt Count 435 H Sodium 134 L Potassium 3.8 BUN 6 L Creatinine 0.41 L Glucose 119 H Total Bilirubin 0.6 AST 17 ALT < 10 L Alkaline Phosphatase 70 Assessment and Plan - Plan Assessment: Sacral decubitus ulceration History of spinal tumor resulting in lower extremity paralysis History of CAD with previous CABG Stage IV prostate cancer/lung cancer Plan: Sacral decubitus ulceration Continue IV antibiotics, general surgery consultation, n.p.o. after midnight in case of debridement. Wound healing consulted as well. History of spinal tumor resulting in lower extremity paralysis At baseline, contributing to decubitus ulceration, family has hospital bed at home but no other resources. We will consult social welfare clerk would likely benefit with home health. History of CAD with previous CABG Continue on medication Stage IV prostate cancer/lung cancer Continue outpatient follow-up with oncology. DVT PPX: SCD Code status: Full Discharge Plan: Home Plan to discharge in: Greater than 2 days - Advance Directives Does patient have a Living Will: No Does patient have a Durable POA for Healthcare: Yes - Code Status/Comfort Care Code Status Assessed: Yes (Full code) Critical Care: No Time Spent Managing Pts Care (In Minutes): 55
[2022-12-29] MEDS ORDERED: MORPHINE 2 MG/ML SYR ONE (21:14)
[2022-12-29] MEDS: NA CHLORIDE 0.9% 1,000 ML IV SCH (22:34)
[2022-12-30 03:06] LABS: Absolute Lymphocytes (CBC) 1.9 K/uL (0.7-4.9); Hematocrit 31.5 % (39.6-49.0); Lymphocytes % 17.4 % (15.3-44.8); MCV 77.6 fL (80-100); Platelets 383 thou/uL (152-406); RBC Red Blood Cell Count 4.06 M/uL (4.33-5.43)
[2022-12-30 03:19] LABS: Potassium 3.8 mEq/L (3.5-5.1)
[2022-12-30] MEDS ORDERED: CEFEPIME 1 GM in NA CHLORIDE 0.9% 100 ML IV SCH (09:00)
[2022-12-30] MEDS ORDERED: NA CHLORIDE 0.9% 100 ML ONE (10:22)
[2022-12-30] MEDS: CARBIDOPA/LEVODOPA 25/100 TAB PO SCH ×2 (10:35→20:10)
[2022-12-30] MEDS: CITALOPRAM 10 MG TABLET PO SCH (10:36)
[2022-12-30] MEDS: VITAMIN D 5,000 UNIT CAP PO SCH (10:36)
[2022-12-30] MEDS: ISOSORBIDE MONO SR 30 MG TAB PO SCH (10:36)
[2022-12-30] MEDS: TAMSULOSIN 0.4 MG SR CAP PO SCH (10:37)
[2022-12-30] MEDS: GABAPENTIN 300 MG CAP PO SCH ×2 (10:37→22:18)
--- NOTE | 2022-12-30 12:00 | P.PN ---
Subjective Date of Service: 12/30/22 Chief Complaint: Sacral decubitus ulceration No acute events since admission. He reports a chronic sacral wound. He states that his chronic pain is well-controlled. He denies any fevers or chills. Review of Systems 10-point ROS is otherwise unremarkable Integumentary: Other (sacral wound) Physical Examination - Vital Signs Temperature: 97.6 F Blood Pressure: 132/63 Pulse: 62 Respirations: 15 Pulse Ox (%): 95 - Physical Exam General: Alert, In no apparent distress, Oriented x3 HEENT: Atraumatic, Mucous membr. moist/pink, Sclerae nonicteric Neck: JVD not distended Respiratory: Clear to auscultation bilaterally, Normal air movement Cardiovascular: No edema, Regular rate/rhythm, Normal S1 S2, No gallops, No rubs, No murmurs Gastrointestinal: Normal bowel sounds, Soft and benign, Non-distended, No tenderness, No rebound, No guarding Musculoskeletal: No clubbing Integumentary: Other (large unstageable sacral wound extending into deep tissue) Neurological: Normal speech, Normal affect - Studies Laboratory Data (last 24 hrs) 12/29/22 12/29/22 16:10 16:10 WBC 8.10 Hgb 11.3 L Hct 33.5 L Plt Count 435 H Sodium 134 L Potassium 3.8 BUN 6 L Creatinine 0.41 L Glucose 119 H Total Bilirubin 0.6 AST 17 ALT < 10 L Alkaline Phosphatase 70 Microbiology Data (last 24 hrs): 12/29/22 16:36 Wound - Sacral Gram Stain - Final Assessment And Plan - Plan # Metastatic Prostate Cancer to Spine and Lung s/p Spinal Tumor Excision complicated by Paraplegia and Unstageable Sacral Wound - CT pelvis = "deep soft tissue wound is seen the inferior to the sacrum lower posterior midline. This does not appear to extend into the intrapelvic cavity. No associated osteomyelitis or abscess evident." - General Surgery consulted and spoke with Dr. Yi - He is planning for wound debridement today - Infectious Diseases consulted and spoke with [facility] Sgarbi - Continue vancomycin + cefepime for now - Continue home tamsulosin # Coronary Artery Disease s/p CABG # History of Cerebrovascular Accident # Hypertension - Continue home atorvastatin, carvedilol, clopidogrel, Imdur # Cancer-Associated Pain # Neuropathic Pain - Continue home fentanyl patch, gabapentin, hydrocodone-acetaminophen # Parkinson's Disease - Continue home carbidopa-levodopa, escitalopram Srinath Crawford M.D.
[2022-12-30] MEDS: VANCOMYCIN 1.75 GM in NA CHLORIDE 0.9% 500 ML IVPB SCH (12:46)
[2022-12-30] MEDS: NA CHLORIDE 0.9% 1,000 ML IV SCH ×2 (12:46→20:12)
[2022-12-30] MEDS: MORPHINE 2 MG/ML SYR IV PRN ×2 (12:47→20:09)
--- NOTE | 2022-12-30 15:22 | P.CNS ---
Date of Consult: 12/30/22 Reason for Consult: sacral wound infection Chief Complaint: Sacral decubitus ulceration History of Present Illness: Patient is a 72 yo male with a complicated past medical history including history of spinal tumors s/p excision, lower extremity paralysis, prostate cancer stage 4 metastasized to lung, CAD s/p CABG who presented to the ED due to concerns of worsening sacral wound. CT pelvis revealing "Deep soft tissue wound is seen the inferior to the sacrum lower posterior midline. This does not appear to extend into the intrapelvic cavity. No associated osteomyelitis or abscess evident." General surgery and infectious disease consulted. Pending debridement. Allergies No Known Allergies Allergy (Verified 12/30/22 00:17) Home medications list reviewed: Yes Home Medications: Atorvastatin Calcium [Lipitor] 40 mg PO BEDTIME 09/30/21 Carbidopa/Levodopa [Sinemet 25-100 mg Tablet] 4 each PO BID 09/30/21 Clopidogrel Bisulfate [Plavix] 75 mg PO BEDTIME 09/30/21 Gabapentin 300 mg PO DAILY 11/01/22 Gabapentin 600 mg PO BEDTIME 11/01/22 Isosorbide Mononitrate [Isosorbide Mononitrate ER] 30 mg PO DAILY 11/01/22 Apixaban [Eliquis] 1 tab PO BID 11/02/22 Cholecalciferol (Vitamin D3) [Vitamin D3] 1 tab PO DAILY 11/02/22 Fentanyl Patch [Duragesic Patch*] 50 mcg TD Q72H #2 patch 11/14/22 Hydrocodone 7.5/APAP 325 [[place] 7.5/325 mg*] 1 tab PO TID PRN #12 tab 11/14/22 Citalopram Hydrobromide [Citalopram HBr] 20 mg PO DAILY 12/30/22 Hydrocodone 5/APAP 325 [[place] 5/325*] 1 tab PO TID 12/30/22 Nitroglycerin 0.4 mg SL PRN PRN 12/30/22 Ondansetron [Ondansetron Odt] 8 mg PO Q8H PRN 12/30/22 Pantoprazole [Protonix Tab*] 40 mg PO BEDTIME 12/30/22 Tamsulosin HCl 0.4 mg PO DAILY 12/30/22 carvediloL [Carvedilol] 6.25 mg PO BEDTIME 12/30/22 - Past Medical/Surgical History Diabetic: Yes -: DM -: Stroke -: prostate cancer metatasized -: Spinal tumor status post excision with resulting lower extremity paralysis -: Stage IV prostate/lung cancer -: CAD with previous CABG -: triple bypass -: multiple back surgerys Psychosocial/ Personal History: Lives at home with . - Social History Smoking Status: Unknown if ever smoked Alcohol use: No CD- Drugs: No Caffeine use: Yes Place of Residence: Home Review of Systems 10-point ROS is otherwise unremarkable Integumentary: As per HPI Neurological: As per HPI Physical Examination Temp Pulse Resp BP Pulse Ox 97.6 F 62 18 132/63 96 12/30/22 12:28 12/30/22 12:28 12/30/22 13:17 12/30/22 12:28 12/30/22 13:17 General: In no apparent distress HEENT: Atraumatic Neck: Supple Respiratory: Clear to auscultation bilaterally, Normal air movement Cardiovascular: No edema, Regular rate/rhythm Gastrointestinal: Normal bowel sounds, Soft and benign Integumentary: Other (pressure ulcer stage 4 sacrum) Neurological: Other (paraplegic) Urinary: Herrera catheter Laboratory Data (last 24 hrs) 12/29/22 12/29/22 16:10 16:10 WBC 8.10 Hgb 11.3 L Hct 33.5 L Plt Count 435 H Sodium 134 L Potassium 3.8 BUN 6 L Creatinine 0.41 L Glucose 119 H Total Bilirubin 0.6 AST 17 ALT < 10 L Alkaline Phosphatase 70 Conclusions/Impression: Problem List Stage 4 Pressure Ulcer of Sacrum Paraplegia Hx Spinal tumors s/p excision CAD s/p CABG Hx Prostate Cancer stage 4 Lung cancer Stage 4 sacral pressure ulcer - CT pelvis 12/29 "Deep soft tissue wound is seen the inferior to the sacrum lower posterior midline. This does not appear to extend into the intrapelvic cavity. No associated osteomyelitis or abscess evident." - sacral wound culture 12/29: pending - Scheduled for debridement today 12/[address] Yi - Blood cultures 12/29: pending - No leukocytosis - Afebrile Recommendations - Continue Cefepime and Vancomycin for now (started 12/29) - Follow up with wound culture results - Follow up with debridement report. If bone involvement, patient will require 6 weeks of antibiotic therapy. - Monitor WBC and fever trends - Pressure offloading measures. Turn patient Q2H. Low air-loss mattress. - continue wound care per Dr. Yi Case discussed with Oc Guallpa
[2022-12-30] MEDS ORDERED: FENTANYL CITR 100 MCG/2 ML ONE (15:31)
[2022-12-30] MEDS ORDERED: propofoL 200 MG/20 ML VIAL IV ONE (15:31)
--- NOTE | 2022-12-30 15:59 | P.BOP ---
Preoperative diagnosis: infected necrotic sacral decubitus ulcer Postoperative diagnosis: infected necrotic sacral decubitus ulcer Primary procedure: Excisional debridement of infected necrotic sacral decubitus ulcer [id number] Secondary procedure: Pulse lavage Estimated blood loss: <20cc Specimen: necrotic tissue, culture Anesthesia: General Complications: None Drain(s): Other (kerlix roll) Transferred to: Recovery Room Condition: Good
--- NOTE | 2022-12-30 20:02 | CON ---
Diagnosis: Sacral decubitus ulcer. History Of Present Illness: This is the case of a 72-year-old patient who comes to us with a spinal tumor, lower extremity paralysis, history of prostate cancer, bone cancer, comes to us with a necroti c sacral decubitus ulcer and a surgical consult was obtained for cleaning since there is a possibilit y to be infected. He says that he has been back and forth different areas, different hospitals. Obv iously since he became paralyzed, it became difficult to be moved and that is contributing to this. The stated that he has been eating although we advised once again the importance of nutrition. Medications: Include Plavix, Sinemet, Lipitor, Tylenol. Past Medical History: Includes stroke, prostate cancer, spinal tumor, stage IV prostate cancer, CAD, triple bypass, back surgeries. Patient also has a pacemaker. Social History: He does not smoke. He does not drink alcohol. Review of Systems: Somehow limited. Most of the information is obtained from the . No chest pain. No nausea, no v omiting. Once again, paralysis of the lower extremities present. 10 points is otherwise unremarkabl e. No dysuria, hematuria, hematochezia, or melena. Physical Examination: GENERAL: Patient is awake, alert, in no distress. Oriented x3. HEENT: Pupils are equal and reactive. Anicteric. Neck: Supple. Chest: Clear. Heart: S1, S2. Abdomen: Soft and depressible. Integumentary: Shows a pressure ulcer with some necrotic tissue present. Some erythema present cons istent with infected sacral decubitus ulcer. Extremities: Good capillary refill. Once again, no motion of the lower extremity due to paralysis. Laboratory Data: WBC count of 10.7 with hemoglobin 11.0, platelets of 383. Potassium 3.8 and creati nine is 5. Assessment: A 72-year-old patient with a sacral decubitus ulcer with infection and devitalized tissu e. Patient will go for debridement. Once again, we might have to do this in stages. He has some ot her medical issues, also on anticoagulation. We discussed with the patient and the family the import ance of offloading, the importance of also nutrition to help us heal this area with subsequent [facility]. The benefits, alternatives, and risks of debridement fully explained , which include, but not limited to infection, bleeding, damage to adjacent structures, anesthesia co mplication, nonhealing wound, and even . JAYSON/ASHLEY Voice ID: [id number] Report ID: [id number]
[2022-12-30] MEDS: ATORVASTATIN 40 MG TAB PO SCH (20:10)
[2022-12-30] MEDS: PANTOPRAZOLE 40MG TABLET PO SCH (20:10)
[2022-12-30] MEDS: CLOPIDOGREL 75 MG TABLET PO SCH (20:10)
[2022-12-30] MEDS: JUVEN PACKET PO SCH (20:12)
[2022-12-30] MEDS: CEFEPIME 2 GM in NA CHLORIDE 0.9% 100 ML IV SCH (20:12)
--- NOTE | 2022-12-30 20:38 | OP ---
Date of Procedure: 12/30/2022 Surgeon: Fredy Yi MD Preoperative Diagnosis: Infected necrotic sacral decubitus ulcer. Postoperative Diagnosis: Infected necrotic sacral decubitus ulcer. Procedure: Excisional debridement of infected necrotic sacral decubitus ulcer about 11 x 9 x 2 cm. This debridement goes all the way down to muscle and bone. Bone was not debrided. We also did a pul se lavage of that area. Estimated Blood Loss: Less than 20 cc. Specimen: Necrotic tissue and culture. Anesthesia: General plus local. Packing: A Kerlix roll. Indications: This is a case of a 72-year-old patient unfortunately many events happened recently fro m having prostate cancer, also spinal surgery with losing the function of his legs with bedridden sit uation at this moment causing a decubitus ulcer. He has been busy doing some of the things at the me time decubitus ulcers getting worse to the point that shows some necrotic wound and foul smelling when he comes to this admission and a surgical consult was obtained for debridement. The benefits, a lternatives, and risks of excisional debridement of this was fully explained, which include, but not limited to infection, bleeding, damage to adjacent structures, anesthesia complication, SD, and even . He also understands and the , this may not relieve any symptoms. He might need more than one surgical intervention. He understood and signed a consent. Description Of Procedure: The patient was brought to the operating room, placed in supine position. Anesthesia was done without complication. Then the patient was placed in lateral decubitus position for proper protection. The back and sacrum area was prepped and draped in sterile fashion. Local a nesthesia was applied followed by sharp incision of the skin with a knife and all the necrotic tissue . There was foul smell coming from the area and necrotic tissue present all the way down to bone. I t just millimeter away from the bone itself, although the bone is not exposed, there is some necrotic tissue present that we removed. Then, after that we used pulse lavage to help us once again clean t he area and diminish the bioburden of bacteria in that region. Hemostasis obtained with pressure. T he patient tolerated the procedure well and the area was packed with wet-to-dry dressing. JAYSON/MODL Voice ID: [id number] Report ID: [id number]
[2022-12-30] MEDS: carvediloL 6.25 MG TAB PO SCH (22:18)
[2022-12-31] MEDS: NA CHLORIDE 0.9% 1,000 ML IV SCH ×2 (00:01→14:42)
[2022-12-31 04:07] LABS: Potassium 3.4 mEq/L (3.5-5.1)
[2022-12-31] MEDS: VANCOMYCIN 1.75 GM in NA CHLORIDE 0.9% 500 ML IVPB SCH (05:44)
[2022-12-31] MEDS: MORPHINE 2 MG/ML SYR IV PRN ×4 (06:46→22:09)
[2022-12-31] MEDS: JUVEN PACKET PO SCH ×2 (09:00→21:00)
[2022-12-31] MEDS: CEFEPIME 2 GM in NA CHLORIDE 0.9% 100 ML IV SCH ×2 (10:37→22:08)
[2022-12-31] MEDS: ISOSORBIDE MONO SR 30 MG TAB PO SCH (10:41)
[2022-12-31] MEDS: GABAPENTIN 300 MG CAP PO SCH ×2 (10:41→22:06)
[2022-12-31] MEDS: VITAMIN D 5,000 UNIT CAP PO SCH (10:41)
[2022-12-31] MEDS: TAMSULOSIN 0.4 MG SR CAP PO SCH (10:41)
[2022-12-31] MEDS: CITALOPRAM 10 MG TABLET PO SCH (10:42)
[2022-12-31] MEDS: COLLAGENASE 30 GM OINTMENT TOP SCH (10:42)
[2022-12-31] MEDS: CARBIDOPA/LEVODOPA 25/100 TAB PO SCH ×2 (13:10→22:05)
--- NOTE | 2022-12-31 15:46 | P.PN ---
Subjective Date of Service: 12/31/22 Chief Complaint: Sacral decubitus ulceration POD #1 excisional debridement of infected necrotic sacral decubitus ulcer about 11 x 9 x 2 cm. He reports mild lumbar back pain. Blood cultures have returned positive for gram-negative and gram-positive bacteremia. He denies any fevers or chills. Review of Systems 10-point ROS is otherwise unremarkable Musculoskeletal: Back Pain Physical Examination - Vital Signs Temperature: 97.1 F Blood Pressure: 126/58 Pulse: 63 Respirations: 16 Pulse Ox (%): 93 - Studies Microbiology Data (last 24 hrs): 12/29/22 16:36 Wound - Sacral Gram Stain - Final 12/29/22 16:25 Blood - Blood Blood Culture Gram Stain - Final Assessment And Plan - Plan - Physical Exam General: Alert, In no apparent distress, Oriented x3 HEENT: Atraumatic, Mucous membr. 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 This does not appear to extend into the intrapelvic cavity. No associated osteomyelitis or abscess evident." - General Surgery consulted and spoke with Dr. Yi - S/P excisional debridement of infected necrotic sacral decubitus ulcer about 11 x 9 x 2 cm. (12/30/2022) - Infectious Diseases consulted and spoke with SALES PLANNING MANAGER Sgarbi - Continue vancomycin + cefepime for now - Continue home tamsulosin - Blood cultures: 2/4 positive for gram-negative rods and 1/4 positive for gram- positive cocci in clusters - Transthoracic echocardiogram ordered to evaluate for valvular vegetations # Coronary Artery Disease s/p CABG # History of Cerebrovascular Accident # Hypertension - Continue home atorvastatin, carvedilol, clopidogrel, Imdur # Cancer-Associated Pain # Neuropathic Pain - Continue home fentanyl patch, gabapentin, hydrocodone-acetaminophen # Parkinson's Disease - Continue home carbidopa-levodopa, escitalopram Srinath Crawford M.D.
[2022-12-31] MEDS: ATORVASTATIN 40 MG TAB PO SCH (22:07)
[2022-12-31] MEDS: CLOPIDOGREL 75 MG TABLET PO SCH (22:07)
[2022-12-31] MEDS: carvediloL 6.25 MG TAB PO SCH (22:07)
[2022-12-31] MEDS: PANTOPRAZOLE 40MG TABLET PO SCH (22:07)
[2023-01-01] MEDS: VANCOMYCIN 1.75 GM in NA CHLORIDE 0.9% 500 ML IVPB SCH ×2 (01:00→18:03)
[2023-01-01] MEDS: MORPHINE 2 MG/ML SYR IV PRN ×3 (05:34→20:44)
[2023-01-01] MEDS: NA CHLORIDE 0.9% 1,000 ML IV SCH ×2 (05:34→16:01)
[2023-01-01 07:42] LABS: Bicarbonate 26 mEq/L (21-32); Glomerular Filtration Rate 126 ml/min (=/>90); Glucose Level 92 mg/dL (74-106); Sodium Level 134 mEq/L (136-145)
[2023-01-01 07:45] LABS: BUN Blood Urea Nitrogen < 3 mg/dL (7-18)
[2023-01-01] MEDS: JUVEN PACKET PO SCH ×2 (09:00→20:44)
[2023-01-01] MEDS: CITALOPRAM 10 MG TABLET PO SCH (09:00)
[2023-01-01] MEDS: TAMSULOSIN 0.4 MG SR CAP PO SCH (09:00)
[2023-01-01] MEDS: COLLAGENASE 30 GM OINTMENT TOP SCH (09:00)
[2023-01-01] MEDS: VITAMIN D 5,000 UNIT CAP PO SCH (09:26)
[2023-01-01] MEDS: GABAPENTIN 300 MG CAP PO SCH ×2 (09:26→20:43)
[2023-01-01] MEDS: ISOSORBIDE MONO SR 30 MG TAB PO SCH (09:26)
[2023-01-01] MEDS: Meropenem 1,000 MG in NA CHLORIDE 0.9% 100 ML IV SCH ×2 (09:27→16:48)
[2023-01-01] MEDS: CARBIDOPA/LEVODOPA 25/100 TAB PO SCH ×2 (09:27→20:43)
[2023-01-01] MEDS: FENTANYL 75 MCG/PATCH TD SCH (11:46)
--- NOTE | 2023-01-01 16:39 | P.PN ---
Subjective Date of Service: 01/01/23 Chief Complaint: Sacral decubitus ulceration POD #2 excisional debridement of infected necrotic sacral decubitus ulcer about 11 x 9 x 2 cm. He that his pain is well controlled. Blood cultures have returned positive for gram-negative and gram-positive bacteremia. His wound culture has returned positive for MDR Pseudomonas Aeruginosa. He denies any fevers or chills. Review of Systems 10-point ROS is otherwise unremarkable Integumentary: Other (sacral wound) Physical Examination - Vital Signs Temperature: 97.5 F Blood Pressure: 133/66 Pulse: 61 Respirations: 16 Pulse Ox (%): 97 - Studies Microbiology Data (last 24 hrs): 12/29/22 16:36 Wound - Sacral Gram Stain - Final 12/29/22 16:25 Blood - Blood Blood Culture Gram Stain - Final Assessment And Plan - Plan - Physical Exam General: Alert, In no apparent distress, Oriented x3 HEENT: Atraumatic, Mucous membr. 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 This does not appear to extend into the intrapelvic cavity. No associated osteomyelitis or abscess evident." - General Surgery consulted and spoke with Dr. Yi - S/P excisional debridement of infected necrotic sacral decubitus ulcer about 11 x 9 x 2 cm. (12/30/2022) - Infectious Diseases consulted - Continue vancomycin - Cefepime switched to meropenem - Continue home tamsulosin - Wound culture: MDR Pseudomonas Aeruginosa - Blood cultures: 2/4 positive for gram-negative rods and 1/4 positive for gram- positive cocci in clusters - Transthoracic echocardiogram ordered to evaluate for valvular vegetations # Coronary Artery Disease s/p CABG # History of Cerebrovascular Accident # Hypertension - Continue home atorvastatin, carvedilol, clopidogrel, Imdur # Cancer-Associated Pain # Neuropathic Pain - Continue home fentanyl patch, gabapentin, hydrocodone-acetaminophen # Parkinson's Disease - Continue home carbidopa-levodopa, escitalopram Srinath Crawford M.D.
[2023-01-01] MEDS: carvediloL 6.25 MG TAB PO SCH (20:43)
[2023-01-01] MEDS: PANTOPRAZOLE 40MG TABLET PO SCH (20:43)
[2023-01-01] MEDS: CLOPIDOGREL 75 MG TABLET PO SCH (20:43)
[2023-01-01] MEDS: ATORVASTATIN 40 MG TAB PO SCH (20:44)
[2023-01-02] MEDS: Meropenem 1,000 MG in NA CHLORIDE 0.9% 100 ML IV SCH ×3 (00:51→16:31)
[2023-01-02 02:54] LABS: Absolute Lymphocytes (CBC) 1.7 K/uL (0.7-4.9); Hematocrit 28.2 % (39.6-49.0); Lymphocytes % 30.4 % (15.3-44.8); MCV 76.8 fL (80-100); MPV 6.1 fL (7.6-11.3); Platelets 271 thou/uL (152-406); RBC Red Blood Cell Count 3.68 M/uL (4.33-5.43)
[2023-01-02 03:14] LABS: Potassium 3.3 mEq/L (3.5-5.1)
--- NOTE | 2023-01-02 05:14 | P.PN ---
Date of Service: 01/02/23 Subjective: Patient is doing well no new complaints. Patient with metastatic cancer to the spine. Primary site is probably prostate or lung. Continue with antibiotics. Strict blood pressure control. Continue with Parkinson's medications. Physical Exam: Vitals: reviewed GEN: Alert, oriented, NAD CV: Regular rate & rhythm, no edema Pulm: clear bilaterally ABD: Soft, nontender, nondistended MSK: Joint tenderness; low back pain; Integumentary: large unstageable sacral wound extending into deep tissue Neuro: No focal deficits; flat affect Problem List: 1. 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 MDR Pseudomonas Aeruginosa Infected Sacral Wound 3. Gram-Negative and Gram-Positive Bacteremia 4. CAD s/p CABG 5. History of CVA 6. Hypertension 7. Cancer-Associated Pain 8. Neuropathic Pain 9. Parkinson's Disease PLAN -General Surgery consulted; appreciate their assistance -s/p excisional debridement of infected necrotic sacral decubitus ulcer about 11 x 9 x 2 cm. (12/30/2022); continues with pain -ID consulted; continuing with antibiotic therapy -Continue vancomycin and merrem -Blood cultures: 2/4 positive for gram-negative rods and 1/4 positive for gram- positive cocci in clusters -wound cx: MDR pseudomonas aeruginosa and MRSA -Continue home tamsulosin -Transthoracic echocardiogramwith no vegetations -Continue home atorvastatin, carvedilol, clopidogrel, Imdur -Continue home fentanyl patch, gabapentin, hydrocodone-acetaminophen -Continue home carbidopa-levodopa, escitalopram
[2023-01-02] MEDS: NA CHLORIDE 0.9% 1,000 ML IV SCH ×2 (06:24→22:14)
[2023-01-02] MEDS: CITALOPRAM 10 MG TABLET PO SCH (08:34)
[2023-01-02] MEDS: VITAMIN D 5,000 UNIT CAP PO SCH (08:35)
[2023-01-02] MEDS: ISOSORBIDE MONO SR 30 MG TAB PO SCH (08:35)
[2023-01-02] MEDS: TAMSULOSIN 0.4 MG SR CAP PO SCH (08:35)
[2023-01-02] MEDS: CARBIDOPA/LEVODOPA 25/100 TAB PO SCH ×2 (08:38→22:16)
--- NOTE | 2023-01-02 08:41 | P.PN ---
Date of Service: 01/02/23 Chief Complaint: Sacral decubitus ulceration Subjective: Patient seen and examined at bedside. in room. He denies any new or worsening complaints at this time. In no apparent distress. Physical Examination Temp Pulse Resp BP Pulse Ox 97.3 F 59 16 135/61 93 01/02/23 04:00 01/02/23 04:00 01/02/23 04:00 01/02/23 04:00 01/02/23 04:00 General: In no apparent distress. Awake and oriented x3. HEENT: Atraumatic, normocephalic. Neck supple. Respiratory: Clear to auscultation bilaterally, Normal air movement. Unlabored respirations on room air. Cardiovascular: No edema, Regular rate/rhythm Gastrointestinal: Normal bowel sounds, Soft and benign. Integumentary: Pressure ulcer stage 4 sacrum Neurological: Paraplegic Urinary: Herrera catheter Laboratory Data: Reviewed Microbiology Data: Reviewed Imaging Data: Reviewed Medications List: Reviewed Hydrocodone Bitart/Acetaminophen (Hydrocodone/Apap 7.5/325 Mg Tab) 1 tab PO TID PRN PRN Reason: Pain scale 5-7 (Moderate) Atorvastatin Calcium (Atorvastatin 40 Mg Tab) 40 mg PO BEDTIME [facility] Last Admin: 01/01/23 20:44 Dose: 40 mg Carbidopa/Levodopa (Carbidopa/Levodopa 25/100 Tab) 4 tab PO BID [facility] Last Admin: 01/02/23 08:38 Dose: 4 tab Carvedilol (Carvedilol 6.25 Mg Tab) 6.25 mg PO BEDTIME [facility] Last Admin: 01/01/23 20:43 Dose: 6.25 mg Cholecalciferol (Vitamin D 5,000 Unit Cap) 5,000 unit PO DAILY [facility] Last Admin: 01/02/23 08:35 Dose: 5,000 unit Citalopram Hydrobromide (Citalopram 10 Mg Tablet) 20 mg PO DAILY [facility] Last Admin: 01/02/23 08:34 Dose: 20 mg Clopidogrel Bisulfate (Clopidogrel 75 Mg Tablet) 75 mg PO BEDTIME [facility] Last Admin: 01/01/23 20:43 Dose: 75 mg Collagenase (Collagenase 30 Gm Ointment) 1 appl TOP DAILY [facility] Last Admin: 01/02/23 09:00 Dose: 1 appl Fentanyl (Fentanyl 75 Mcg/Patch) 75 mcg TD Q72H [facility] Last Admin: 01/01/23 11:46 Dose: 75 mcg Gabapentin (Gabapentin 300 Mg Cap) 300 mg PO DAILY [facility] Last Admin: 01/02/23 09:00 Dose: 300 mg Gabapentin (Gabapentin 300 Mg Cap) 600 mg PO BEDTIME [facility] Last Admin: 01/01/23 20:43 Dose: 600 mg Meropenem 1,000 mg/ Sodium (Chloride) 100 mls @ 200 mls/hr IV Q8HR [facility] Last Admin: 01/02/23 08:51 Dose: 100 mls Vancomycin HCl 1.75 gm/ Sodium (Chloride) 500 mls @ 250 mls/hr IVPB Q24H [facility] Isosorbide Mononitrate (Isosorbide Coffey Sr 30 Mg Tab) 30 mg PO DAILY [facility] Last Admin: 01/02/23 08:35 Dose: 30 mg L-Arginine/L-Glutamine/HMB (Salas Packet) 1 pkt PO BID [facility] Last Admin: 01/02/23 09:00 Dose: 1 pkt Morphine Sulfate (Morphine 2 Mg/Ml Syr) 2 mg IV Q4H PRN PRN Reason: Pain scale 8-10 (Severe) Last Admin: 01/02/23 08:50 Dose: 2 mg Ondansetron HCl (Ondansetron 4 Mg/2 Ml Vial) 4 mg IV Q6HP PRN PRN Reason: NAUSEA / VOMITING Pantoprazole Sodium (Pantoprazole 40mg Tablet) 40 mg PO BEDTIME [facility]; Protocol Last Admin: 01/01/23 20:43 Dose: 40 mg Tamsulosin HCl (Tamsulosin 0.4 Mg Sr Cap) 0.4 mg PO DAILY [facility] Last Admin: 01/02/23 08:35 Dose: 0.4 mg Assessment and Plan Problem List Stage 4 Pressure Ulcer of Sacrum Paraplegia Hx Spinal tumors s/p excision CAD s/p CABG Hx Prostate Cancer stage 4 Lung cancer Infection of stage 4 sacral pressure ulcer - CT pelvis 12/29 "Deep soft tissue wound is seen the inferior to the sacrum lower posterior midline. This does not appear to extend into the intrapelvic cavity. No associated osteomyelitis or abscess evident." - sacral wound culture 12/29: Pseudomonas aeruginosa, multi-drug resistant - s/p debridement of infected necrotic sacral decubitus ulcer 12/[address] Yi - Previously on Cefepime (12/30-01/01) which was switched to Meropenem on 01/01 following wound culture/sensitivity reports - Currently on Meropenem (01/01-) and Vancomycin (12/30-) - Blood cultures 12/29: no growth to date - No leukocytosis - Afebrile Recommendations - s/p debridement of sacral pressure ulcer on 12/30 with extension down to muscle/bone. Recommend continuing Meropenem and Vancomycin for 6 weeks duration (12/30 to 02/10). - continue wound care per surgeon Dr. Yi - Monitor WBC and fever trends - Pressure offloading measures. Turn patient Q2H. Low air-loss mattress. Patient would benefit from LTAC placement due to long-term IV antibiotics, extensive wound care, paraplegia requiring assistance for optimal outcomes and wound healing. Case discussed with Oc Guallpa
[2023-01-02] MEDS: MORPHINE 2 MG/ML SYR IV PRN ×2 (08:50→18:37)
[2023-01-02] MEDS: COLLAGENASE 30 GM OINTMENT TOP SCH (09:00)
[2023-01-02] MEDS: JUVEN PACKET PO SCH ×2 (09:00→22:15)
[2023-01-02] MEDS: GABAPENTIN 300 MG CAP PO SCH ×2 (09:00→22:16)
[2023-01-02 11:00] VITALS: BMI 27.8
--- NOTE | 2023-01-02 16:10 | PN ---
Date of Progress Note: 01/02/2023 Reason For Service: Sacral decubitus ulcer. The patient doing well. He is to be here for medical r easons. From the wound standpoint, even though he has paraplegia, he still has some sensation as per and the patient in this area. The surgical site is intact. Plan: I understand we are looking for options on LTAC. I explained to the and him whenever the LTAC is finished he is welcome to come to the [facility], this is a long-term relationship that we might have to have to get this healed. In doing that, we asked him the factors that may imp rove healing which are off-loading, nutrition, antibiotics. Another point that we have at this momen t, he might need a wound VAC now. I cannot rule out osteomyelitis at this moment. The person cannot have an MRI, so we may consider a bone scan if this does not improve and I agree with Infectious Dis ease to see if he has osteomyelitis because this may affect the way we close this in the future, glo hu if we are going to use a wound VAC in that area. JAYSON/ASHLEY Voice ID: [id number] Report ID: [id number]
[2023-01-02] MEDS: VANCOMYCIN 1.75 GM in NA CHLORIDE 0.9% 500 ML IVPB SCH (18:41)
[2023-01-02] MEDS: CLOPIDOGREL 75 MG TABLET PO SCH (22:15)
[2023-01-02] MEDS: carvediloL 6.25 MG TAB PO SCH (22:15)
[2023-01-02] MEDS: PANTOPRAZOLE 40MG TABLET PO SCH (22:16)
[2023-01-02] MEDS: ATORVASTATIN 40 MG TAB PO SCH (22:17)
[2023-01-02] MEDS: HYDROCODONE/APAP 7.5/325 MG TAB PO PRN (22:20)
[2023-01-03] MEDS: Meropenem 1,000 MG in NA CHLORIDE 0.9% 100 ML IV SCH ×3 (01:39→16:50)
[2023-01-03] MEDS: MORPHINE 2 MG/ML SYR IV PRN ×2 (03:34→21:21)
[2023-01-03] MEDS: HYDROCODONE/APAP 7.5/325 MG TAB PO PRN (06:44)
[2023-01-03] MEDS: NA CHLORIDE 0.9% 1,000 ML IV SCH ×2 (08:01→18:00)
--- NOTE | 2023-01-03 08:17 | P.PN ---
Date of Service: 01/03/23 Chief Complaint: Sacral decubitus ulceration Subjective: Patient seen and examined at bedside. present in room. Patient denies any new or worsening complaints at this time. Discussed plan of care with patient and . Physical Examination Temp Pulse Resp BP Pulse Ox 97.7 F 44 L 18 148/78 H 97 01/03/23 04:00 01/03/23 04:00 01/03/23 04:00 01/03/23 04:00 01/03/23 04:00 General: In no apparent distress. Awake and oriented x3. HEENT: Atraumatic, normocephalic. Neck supple. Respiratory: Clear to auscultation bilaterally, Normal air movement. Unlabored respirations on room air. Cardiovascular: No edema, Regular rate/rhythm Gastrointestinal: Normal bowel sounds, Soft and benign. Integumentary: Pressure ulcer stage 4 sacrum Neurological: Paraplegic Urinary: Herrera catheter Laboratory Data: Reviewed Microbiology Data: Reviewed Imaging Data: Reviewed Medications List: Reviewed Assessment and Plan Problem List Stage 4 Pressure Ulcer of Sacrum Paraplegia Hx Spinal tumors s/p excision CAD s/p CABG Hx Prostate Cancer stage 4 Lung cancer Infection of stage 4 sacral pressure ulcer - CT pelvis 12/29 "Deep soft tissue wound is seen the inferior to the sacrum lower posterior midline. This does not appear to extend into the intrapelvic cavity. No associated osteomyelitis or abscess evident." - sacral wound culture 12/29: Staph aureus and Pseudomonas aeruginosa, multi-heather g resistant - s/p debridement of infected necrotic sacral decubitus ulcer~ 11 x 9 x 2 cm on 12/[address] Yi - Previously on Cefepime (12/30-01/01) which was switched to Meropenem on 01/01 following wound culture/sensitivity reports - Currently on Meropenem (01/01-) and Vancomycin (12/30-) - Transthoracic echocardiogram 01/02: no clear vegetation seen - Blood cultures 12/29: no growth to date - No leukocytosis - Afebrile Recommendations - s/p debridement of sacral pressure ulcer on 12/30 with extension down to muscle/bone. Recommend continuing Meropenem and Vancomycin for 6 weeks duration (12/30 to 02/10). - continue wound care per surgeon Dr. Yi - Monitor WBC and fever trends - Pressure offloading measures. Turn patient Q2H. Low air-loss mattress. Patient would benefit from LTAC placement due to long-term IV antibiotics, extensive wound care, paraplegia requiring assistance for optimal outcomes and wound healing. Case discussed with Oc Guallpa
[2023-01-03] MEDS: TAMSULOSIN 0.4 MG SR CAP PO SCH (09:05)
[2023-01-03] MEDS: ISOSORBIDE MONO SR 30 MG TAB PO SCH (09:05)
[2023-01-03] MEDS: CARBIDOPA/LEVODOPA 25/100 TAB PO SCH ×2 (09:05→21:07)
[2023-01-03] MEDS: CITALOPRAM 10 MG TABLET PO SCH (09:05)
[2023-01-03] MEDS: GABAPENTIN 300 MG CAP PO SCH ×2 (09:06→21:11)
[2023-01-03] MEDS: JUVEN PACKET PO SCH ×2 (10:12→21:11)
[2023-01-03] MEDS: VITAMIN D 5,000 UNIT CAP PO SCH (10:12)
[2023-01-03] MEDS: COLLAGENASE 30 GM OINTMENT TOP SCH (10:12)
--- NOTE | 2023-01-03 12:42 | ECHO ---
HEIGHT: 5 ft 10 in WEIGHT: 194 lb 0 oz DATE OF STUDY: 01/03/[address]: Srinath Crawford MD 2-DIMENSIONAL: YES M.MODE: YES DOPPLER: YES COLOR FLOW: YES TDS: YES PORTABLE: YES DEFINITY: BUBBLE STUDY: DIAGNOSIS: GRAM POSITIVE BACTEREMIA CARDIAC HISTORY: CATHERIZATION: YES SURGERY: YES PROSTHETIC VALVE: NO PACEMAKER: YES MEASUREMENTS (cm) DIASTOLIC (NORMALS) SYSTOLIC (NORMALS) IVSd 1.2 (0.6-1.2) LA Diam 2.8 (1.9-4.0) LVEF 55-60% LVIDd 4.8 (3.5-5.7) LVIDs 3.8 (2.0-3.5) %FS % LVPWd 1.2 (0.6-1.2) Ao Diam 3.0 (2.0-3.7) 2 DIMENSIONAL ASSESSMENT: RIGHT ATRIUM: NORMAL LEFT ATRIUM: NORMAL RIGHT VENTRICLE: NORMAL LEFT VENTRICLE: NORMAL TRICUSPID VALVE: MILD TRICUSPID REGURGITATION MITRAL VALVE: MILD MITRAL REGURGITATION PULMONIC VALVE: MILD PULMONIC INSUFFICIENCY AORTIC VALVE: NORMAL PERICARDIAL EFFUSION: NONE AORTIC ROOT: NORMAL LEFT VENTRICULAR WALL MOTION: NORMAL DOPPLER/COLOR FLOW: SEE BELOW COMMENTS: 1. NORMAL LEFT VENTRICULAR EJECTION FRACTION 55-60% WITH NORMAL WALL MOTION 2. GRADE I DIASTOLIC DYSFUNCTION 3. MILD MITRAL REGURGITATION, TRICUSPID REGURGITATION, PULMONIC INSUFFICIENCY 4. NO CLEAR VEGETATION IS SEEN ON THIS EXAM TECHNOLOGIST: HAMILTON MATHIS
[2023-01-03] MEDS: VANCOMYCIN 1.75 GM in NA CHLORIDE 0.9% 500 ML IVPB SCH (18:03)
[2023-01-03] MEDS: ATORVASTATIN 40 MG TAB PO SCH (21:07)
[2023-01-03] MEDS: CLOPIDOGREL 75 MG TABLET PO SCH (21:07)
[2023-01-03] MEDS: carvediloL 6.25 MG TAB PO SCH (21:08)
[2023-01-03] MEDS: PANTOPRAZOLE 40MG TABLET PO SCH (21:08)
[2023-01-04] MEDS: Meropenem 1,000 MG in NA CHLORIDE 0.9% 100 ML IV SCH ×3 (00:38→17:16)
[2023-01-04] MEDS: MORPHINE 2 MG/ML SYR IV PRN ×3 (03:31→15:47)
[2023-01-04] MEDS ORDERED: NA CHLORIDE 0.9% 100 ML ONE (07:38)
[2023-01-04] MEDS: GABAPENTIN 300 MG CAP PO SCH ×2 (07:53→22:07)
[2023-01-04] MEDS: CARBIDOPA/LEVODOPA 25/100 TAB PO SCH ×2 (07:53→22:07)
[2023-01-04] MEDS: CITALOPRAM 10 MG TABLET PO SCH (07:53)
[2023-01-04] MEDS: TAMSULOSIN 0.4 MG SR CAP PO SCH (07:53)
[2023-01-04] MEDS: ISOSORBIDE MONO SR 30 MG TAB PO SCH (07:53)
[2023-01-04] MEDS: VITAMIN D 5,000 UNIT CAP PO SCH (07:53)
[2023-01-04] MEDS: COLLAGENASE 30 GM OINTMENT TOP SCH (07:54)
[2023-01-04] MEDS: JUVEN PACKET PO SCH ×2 (07:55→22:08)
--- NOTE | 2023-01-04 09:31 | P.PN ---
Date of Service: 01/04/23 Chief Complaint: Sacral decubitus ulceration Subjective: In no apparent distress. Eating breakfast in bed. + sacrum pain + headache Denies any nausea, vomiting, diarrhea or abdominal pain. No chest pain or shortness of breath. Physical Examination Temp Pulse Resp BP Pulse Ox 98.2 F 60 16 120/58 L 98 01/04/23 08:00 01/04/23 08:00 01/04/23 08:00 01/04/23 08:00 01/04/23 08:00 General: In no apparent distress. Awake and oriented x3. HEENT: Atraumatic, normocephalic. Neck supple. Respiratory: Clear to auscultation bilaterally, Normal air movement. Unlabored respirations on room air. Cardiovascular: No edema, Regular rate/rhythm Gastrointestinal: Normal bowel sounds, Soft and benign. Integumentary: Pressure ulcer stage 4 sacrum Neurological: Paraplegic Urinary: Herrera catheter Studies Laboratory Data: Reviewed Microbiology Data: Reviewed Imaging Data: - Transthoracic echocardiogram 01/02: no clear vegetation seen Medications List: Reviewed Assessment and Plan Problem List Stage 4 Pressure Ulcer of Sacrum Paraplegia Hx Spinal tumors s/p excision CAD s/p CABG Hx Prostate Cancer stage 4 Lung cancer Infection of stage 4 sacral pressure ulcer - CT pelvis 12/29 "Deep soft tissue wound is seen the inferior to the sacrum lower posterior midline. This does not appear to extend into the intrapelvic cavity. No associated osteomyelitis or abscess evident." - s/p debridement of infected necrotic sacral decubitus ulcer~ 11 x 9 x 2 cm; down to muscle and bone on 12/[address] Yi - sacral wound culture 12/29: Staph aureus and Pseudomonas aeruginosa, multi- drug resistant - Previously on Cefepime (12/30-01/01) which was switched to Meropenem on 01/01 following wound culture/sensitivity reports - Currently on Meropenem (01/01-) and Vancomycin (12/30-) Blood cultures 12/29: updated 01/03- Bacteroides bivus in anaerobic bottles. staph hominis in 1 aerobic bottle. likely contaminants. No leukocytosis Afebrile Recommendations - s/p debridement of sacral pressure ulcer on 12/30 with extension down to muscle/bone. Concern for osteomyelitis, recommend continuing antibiotic therapy for 6 weeks duration (12/30 to 02/10) with Meropenem and Vancomycin. Recommend continuing Meropenem and Vancomycin for 6 weeks duration (12/30 to 02/10). - continue wound care per surgeon Dr. Yi - Pressure offloading measures. Turn patient Q2H. Low air-loss mattress. Patient would benefit from LTAC placement due to long-term IV antibiotics 6 weeks Meropenem and Vancomycin, extensive wound care, paraplegia requiring assistance for optimal outcomes and wound healing. Plan of care discussed with Patient and family member at bedside. Case discussed with Oc Guallpa
[2023-01-04] MEDS: NA CHLORIDE 0.9% 1,000 ML IV SCH ×2 (10:41→17:25)
[2023-01-04] MEDS: FENTANYL 75 MCG/PATCH TD SCH (12:28)
[2023-01-04] MEDS: ONDANSETRON 4 MG/2 ML VIAL IV PRN (13:19)
[2023-01-04] MEDS ORDERED: ONDANSETRON 4 MG/2 ML VIAL IV ONE (15:56)
[2023-01-04] MEDS: VANCOMYCIN 2 GM in NA CHLORIDE 0.9% 500 ML IVPB SCH (17:39)
[2023-01-04] MEDS: carvediloL 6.25 MG TAB PO SCH (22:07)
[2023-01-04] MEDS: ATORVASTATIN 40 MG TAB PO SCH (22:07)
[2023-01-04] MEDS: PANTOPRAZOLE 40MG TABLET PO SCH (22:08)
[2023-01-04] MEDS: CLOPIDOGREL 75 MG TABLET PO SCH (22:08)
[2023-01-05] MEDS: NA CHLORIDE 0.9% 1,000 ML IV SCH ×2 (00:01→12:40)
[2023-01-05] MEDS: Meropenem 1,000 MG in NA CHLORIDE 0.9% 100 ML IV SCH ×3 (00:35→15:53)
[2023-01-05] MEDS: TAMSULOSIN 0.4 MG SR CAP PO SCH (08:56)
[2023-01-05] MEDS: VITAMIN D 5,000 UNIT CAP PO SCH (08:56)
[2023-01-05] MEDS: GABAPENTIN 300 MG CAP PO SCH ×2 (08:57→21:42)
[2023-01-05] MEDS: CITALOPRAM 10 MG TABLET PO SCH (08:57)
[2023-01-05] MEDS: ISOSORBIDE MONO SR 30 MG TAB PO SCH (08:57)
[2023-01-05] MEDS: COLLAGENASE 30 GM OINTMENT TOP SCH (08:57)
[2023-01-05] MEDS: JUVEN PACKET PO SCH ×2 (09:00→21:43)
[2023-01-05] MEDS: CARBIDOPA/LEVODOPA 25/100 TAB PO SCH ×2 (09:47→21:42)
--- NOTE | 2023-01-05 14:36 | P.PN ---
Date of Service: 01/05/23 Chief Complaint: Sacral decubitus ulceration Subjective: Patient resting comfortably in bed. In no apparent distress. breathing comfortably on room air. No new or worsening complaints. at bedside. Questions answered. Physical Examination Temp Pulse Resp BP Pulse Ox 97.0 F 61 17 137/65 97 01/05/23 08:00 01/05/23 08:00 01/05/23 08:00 01/05/23 08:00 01/05/23 08:00 General: In no apparent distress. Awake and oriented x3. HEENT: Atraumatic, normocephalic. Neck supple. Respiratory: Clear to auscultation bilaterally, Normal air movement. Unlabored r espirations on room air. Cardiovascular: No edema, Regular rate/rhythm Gastrointestinal: Normal bowel sounds, Soft and benign. Integumentary: Pressure ulcer stage 4 sacrum Neurological: Paraplegic Urinary: Herrera catheter Studies Laboratory Data: Reviewed Microbiology Data: Reviewed Imaging Data: - Transthoracic echocardiogram 01/02: no clear vegetation seen Medications List: Reviewed Assessment and Plan Problem List Stage 4 Pressure Ulcer of Sacrum Paraplegia Hx Spinal tumors s/p excision CAD s/p CABG Hx Prostate Cancer stage 4 Lung cancer Infection of stage 4 sacral pressure ulcer - CT pelvis 12/29 "Deep soft tissue wound is seen the inferior to the sacrum lower posterior midline. This does not appear to extend into the intrapelvic cavity. No associated osteomyelitis or abscess evident." - s/p debridement of infected necrotic sacral decubitus ulcer~ 11 x 9 x 2 cm; down to muscle and bone on 12/[address] Yi - sacral wound culture 12/29: Staph aureus and Pseudomonas aeruginosa, multi- drug resistant - Previously on Cefepime (12/30-01/01) which was switched to Meropenem on 01/01 following wound culture/sensitivity reports - Currently on Meropenem (01/01-) and Vancomycin (12/30-) Blood cultures 12/29: updated 01/03- Bacteroides bivus in anaerobic bottles. staph hominis in 1 aerobic bottle. likely contaminants. Repeat blood cultures 01/05: pending No leukocytosis Afebrile Recommendations - s/p debridement of sacral pressure ulcer on 12/30 with extension down to muscle/bone. Concern for osteomyelitis, recommend continuing antibiotic therapy for 6 weeks duration (12/30 to 02/10) with Meropenem and Vancomycin. - continue wound care per surgeon Dr. Yi - Pressure offloading measures. Turn patient Q2H. Low air-loss mattress. - Follow up with repeat blood cultures Patient would benefit from LTAC placement due to long-term IV antibiotics 6 weeks Meropenem and Vancomycin, extensive wound care, paraplegia requiring assistance for optimal outcomes and wound healing. Case discussed with Oc Guallpa
[2023-01-05] MEDS: MORPHINE 2 MG/ML SYR IV PRN ×2 (15:49→21:56)
[2023-01-05] MEDS: ONDANSETRON 4 MG/2 ML VIAL IV PRN (17:17)
[2023-01-05] MEDS: VANCOMYCIN 2 GM in NA CHLORIDE 0.9% 500 ML IVPB SCH (17:24)
[2023-01-05] MEDS: carvediloL 6.25 MG TAB PO SCH (21:42)
[2023-01-05] MEDS: PANTOPRAZOLE 40MG TABLET PO SCH (21:43)
[2023-01-05] MEDS: CLOPIDOGREL 75 MG TABLET PO SCH (21:43)
[2023-01-05] MEDS: ATORVASTATIN 40 MG TAB PO SCH (21:43)
[2023-01-06] MEDS: Meropenem 1,000 MG in NA CHLORIDE 0.9% 100 ML IV SCH ×3 (01:57→17:01)
[2023-01-06] MEDS: NA CHLORIDE 0.9% 1,000 ML IV SCH ×2 (01:57→17:01)
[2023-01-06] MEDS: MORPHINE 2 MG/ML SYR IV PRN ×4 (03:58→22:11)
--- NOTE | 2023-01-06 08:31 | P.PN ---
Date of Service: 01/06/23 Chief Complaint: Sacral decubitus ulceration Subjective: In no apparent distress. Resting in bed. Breathing comfortably on room air. No acute events reported overnight. LTAC appeal pending. Family member at bedside. Physical Examination Temp Pulse Resp BP Pulse Ox 97.5 F 61 17 115/54 L 93 01/06/23 04:00 01/06/23 04:00 01/06/23 04:28 01/06/23 04:00 01/06/23 04:28 General: In no apparent distress. Awake and oriented x3. HEENT: Atraumatic, normocephalic. Neck supple. Respiratory: Clear to auscultation bilaterally, Normal air movement. On room air. Cardiovascular: No edema, Regular rate/rhythm Gastrointestinal: Normal bowel sounds, Soft and benign. Integumentary: Pressure ulcer stage 4 sacrum. Neurological: Paraplegic Urinary: Herrera catheter draining light yellow urine Studies Laboratory Data: Reviewed Microbiology Data: Reviewed Imaging Data: - Transthoracic echocardiogram 01/02: no clear vegetation seen Medications List: Reviewed Assessment and Plan Problem List Stage 4 Pressure Ulcer of Sacrum Paraplegia Hx Spinal tumors s/p excision CAD s/p CABG Hx Prostate Cancer stage 4 Lung cancer Infection of stage 4 sacral pressure ulcer - CT pelvis 12/29 "Deep soft tissue wound is seen the inferior to the sacrum lower posterior midline. This does not appear to extend into the intrapelvic cavity. No associated osteomyelitis or abscess evident." - s/p debridement of infected necrotic sacral decubitus ulcer~ 11 x 9 x 2 cm; down to muscle and bone on 12/[address] Yi - sacral wound culture 12/29: Staph aureus and Pseudomonas aeruginosa, multi- drug resistant - Previously on Cefepime (12/30-01/01) which was switched to Meropenem on 01/01 following wound culture/sensitivity reports - Currently on Meropenem (01/01-) and Vancomycin (12/30-) Blood cultures 12/29: updated 01/03- Bacteroides bivus in anaerobic bottles. staph hominis in 1 aerobic bottle. likely contaminants. Repeat blood cultures 01/05: pending No leukocytosis Afebrile Recommendations - s/p debridement of sacral pressure ulcer on 12/30 with extension down to muscle/bone. Concern for osteomyelitis, recommend continuing antibiotic therapy for 6 weeks duration (12/30 to 02/10) with Meropenem and Vancomycin. Patient will require PICC line. - continue wound care per surgeon Dr. Yi - Pressure offloading measures. Turn patient Q2H. Low air-loss mattress. - Follow up with repeat blood cultures Patient would benefit from LTAC placement due to long-term IV antibiotics 6 weeks Meropenem and Vancomycin, extensive wound care, paraplegia requiring assistance for optimal outcomes and wound healing. - LTAC appeal pending. CM/SW following. Case discussed with Oc Guallpa
[2023-01-06] MEDS: JUVEN PACKET PO SCH ×2 (09:00→21:00)
[2023-01-06] MEDS: TAMSULOSIN 0.4 MG SR CAP PO SCH ×3 (09:00→11:26)
[2023-01-06] MEDS: ISOSORBIDE MONO SR 30 MG TAB PO SCH ×3 (09:00→11:26)
[2023-01-06] MEDS: VITAMIN D 5,000 UNIT CAP PO SCH ×2 (09:00)
[2023-01-06] MEDS: GABAPENTIN 300 MG CAP PO SCH ×2 (10:53→21:16)
[2023-01-06] MEDS: CITALOPRAM 10 MG TABLET PO SCH (10:53)
[2023-01-06] MEDS: CARBIDOPA/LEVODOPA 25/100 TAB PO SCH ×2 (10:53→21:16)
[2023-01-06] MEDS: COLLAGENASE 30 GM OINTMENT TOP SCH (10:54)
[2023-01-06] MEDS: ENSURE ENLIVE 237 ML CAN PO SCH ×2 (14:00→21:00)
[2023-01-06] MEDS: VANCOMYCIN 2 GM in NA CHLORIDE 0.9% 500 ML IVPB SCH (18:23)
[2023-01-06] MEDS: carvediloL 6.25 MG TAB PO SCH (21:00)
[2023-01-06] MEDS: ATORVASTATIN 40 MG TAB PO SCH (21:15)
[2023-01-06] MEDS: CLOPIDOGREL 75 MG TABLET PO SCH (21:16)
[2023-01-06] MEDS: PANTOPRAZOLE 40MG TABLET PO SCH (21:16)
[2023-01-07] MEDS: Meropenem 1,000 MG in NA CHLORIDE 0.9% 100 ML IV SCH ×3 (02:13→16:16)
[2023-01-07] MEDS: MORPHINE 2 MG/ML SYR IV PRN ×2 (05:15→21:48)
[2023-01-07] MEDS: NA CHLORIDE 0.9% 1,000 ML IV SCH ×2 (05:21→10:34)
[2023-01-07] MEDS: VITAMIN D 5,000 UNIT CAP PO SCH (08:53)
[2023-01-07] MEDS: CITALOPRAM 10 MG TABLET PO SCH (08:53)
[2023-01-07] MEDS: CARBIDOPA/LEVODOPA 25/100 TAB PO SCH ×2 (08:53→20:52)
[2023-01-07] MEDS: GABAPENTIN 300 MG CAP PO SCH ×2 (08:53→20:52)
[2023-01-07] MEDS: ISOSORBIDE MONO SR 30 MG TAB PO SCH (08:53)
[2023-01-07] MEDS: TAMSULOSIN 0.4 MG SR CAP PO SCH (08:53)
[2023-01-07] MEDS: COLLAGENASE 30 GM OINTMENT TOP SCH (08:54)
[2023-01-07] MEDS: ENSURE ENLIVE 237 ML CAN PO SCH ×3 (08:54→20:52)
[2023-01-07] MEDS: JUVEN PACKET PO SCH ×2 (08:54→20:52)
[2023-01-07] MEDS: FENTANYL 75 MCG/PATCH TD SCH (10:34)
[2023-01-07] MEDS: VANCOMYCIN 2 GM in NA CHLORIDE 0.9% 500 ML IVPB SCH (17:09)
--- NOTE | 2023-01-07 18:18 | PN ---
Date of Progress Note: 01/07/2023 Reason For Service: Decubitus ulcer. Subjective: Patient is doing well. No complaint. Has been treated from medical standpoint. Objective: Chest: Clear. Abdomen: Soft and depressible. Integumentary: We checked the decubitus ulcer. It is drum cleaner than when we saw him before, although we noticed the patient has some bone exposed in that area now that the devitalized tissue was removed . That will go consistent with clinical osteomyelitis. Plan: From the surgical standpoint, we are going to notify once again Infectious Disease to make the necessary adjustment. 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 Now, there is a problem with MRIs in him because of the pacemaker, which is supposed to be not compatible with MRI as per patient's family. In that case, the Infectious Disease may have to have a clinical decision and treat him accordingly for his osteomyelitis and then find out the ways how to follow that may inc lude imaging in the sense of a bone scan. JAYSON/ASHLEY Voice ID: [id number] Report ID: [id number]
[2023-01-07] MEDS: carvediloL 6.25 MG TAB PO SCH (20:50)
[2023-01-07] MEDS: PANTOPRAZOLE 40MG TABLET PO SCH (20:52)
[2023-01-07] MEDS: CLOPIDOGREL 75 MG TABLET PO SCH (20:52)
[2023-01-07] MEDS: ATORVASTATIN 40 MG TAB PO SCH (20:52)
[2023-01-08] MEDS: Meropenem 1,000 MG in NA CHLORIDE 0.9% 100 ML IV SCH ×3 (01:27→16:04)
[2023-01-08] MEDS: NA CHLORIDE 0.9% 1,000 ML IV SCH ×2 (08:01→13:07)
[2023-01-08] MEDS: ONDANSETRON 4 MG/2 ML VIAL IV PRN ×2 (08:13→23:16)
[2023-01-08] MEDS: MORPHINE 2 MG/ML SYR IV PRN ×3 (08:14→21:07)
[2023-01-08] MEDS: ISOSORBIDE MONO SR 30 MG TAB PO SCH (08:20)
[2023-01-08] MEDS: CARBIDOPA/LEVODOPA 25/100 TAB PO SCH ×2 (08:20→20:39)
[2023-01-08] MEDS: GABAPENTIN 300 MG CAP PO SCH ×2 (08:20→20:39)
[2023-01-08] MEDS: VITAMIN D 5,000 UNIT CAP PO SCH (08:21)
[2023-01-08] MEDS: ENSURE ENLIVE 237 ML CAN PO SCH ×3 (08:21→20:40)
[2023-01-08] MEDS: CITALOPRAM 10 MG TABLET PO SCH (08:21)
[2023-01-08] MEDS: TAMSULOSIN 0.4 MG SR CAP PO SCH (08:21)
[2023-01-08] MEDS: JUVEN PACKET PO SCH ×2 (08:39→20:40)
[2023-01-08] MEDS: HYDROCODONE/APAP 7.5/325 MG TAB PO PRN ×2 (08:42→16:56)
[2023-01-08] MEDS: COLLAGENASE 30 GM OINTMENT TOP SCH (09:00)
[2023-01-08] MEDS: VANCOMYCIN 2 GM in NA CHLORIDE 0.9% 500 ML IVPB SCH (17:00)
[2023-01-08] MEDS: PANTOPRAZOLE 40MG TABLET PO SCH (20:39)
[2023-01-08] MEDS: carvediloL 6.25 MG TAB PO SCH (20:39)
[2023-01-08] MEDS: ATORVASTATIN 40 MG TAB PO SCH (20:40)
[2023-01-08] MEDS: CLOPIDOGREL 75 MG TABLET PO SCH (20:40)
[2023-01-09] MEDS: Meropenem 1,000 MG in NA CHLORIDE 0.9% 100 ML IV SCH ×3 (01:04→16:19)
[2023-01-09] MEDS: NA CHLORIDE 0.9% 1,000 ML IV SCH ×3 (05:06→16:19)
--- NOTE | 2023-01-09 06:38 | P.PN ---
Date of Service: 01/03/23 Subjective: Patient is stable. Awaiting for LTAC placement. Patient with nausea. Otherwise, no new complaints Physical Exam: Vitals: reviewed GEN: Alert, oriented, NAD CV: Regular rate & rhythm, no edema Pulm: clear bilaterally ABD: Soft, nontender, nondistended MSK: Joint tenderness; low back pain; Integumentary: large unstageable sacral wound extending into deep tissue Neuro: No focal deficits; flat affect Problem List: 1. 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 MDR Pseudomonas Aeruginosa Infected Sacral Wound 3. Gram-Negative and Gram-Positive Bacteremia 4. CAD s/p CABG 5. History of CVA 6. Hypertension 7. Cancer-Associated Pain 8. Neuropathic Pain 9. Parkinson's Disease PLAN -General Surgery consulted; appreciate their assistance -s/p excisional debridement of infected necrotic sacral decubitus ulcer about 11 x 9 x 2 cm. (12/30/2022); continues with pain -ID consulted; continuing with antibiotic therapy -Continue vancomycin and merrem; cultures positive for Pseudomonas and MRSA. Also with bacteroids sensitive to vancomycin. -Blood cultures: 2/4 positive for gram-negative rods and 1/4 positive for gram- positive cocci in clusters -wound cx: MDR pseudomonas aeruginosa and MRSA -Continue home tamsulosin -Transthoracic echocardiogramwith no vegetations -Continue home atorvastatin, carvedilol, clopidogrel, Imdur -Continue home fentanyl patch, gabapentin, hydrocodone-acetaminophen -Continue home carbidopa-levodopa, escitalopram
--- NOTE | 2023-01-09 06:40 | P.PN ---
Date of Service: 01/04/23 Subjective: Patient is doing well with no new complaints. Clinical symptoms are stable. Patient is a little more awake today. States his nausea is improved. Patient's is at bedside. Physical Exam: Vitals: reviewed GEN: Alert, oriented, NAD CV: Regular rate & rhythm, no edema Pulm: clear bilaterally ABD: Soft, nontender, nondistended MSK: Joint tenderness; low back pain; Integumentary: large unstageable sacral wound extending into deep tissue Neuro: No focal deficits; flat affect Problem List: 1. 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 MDR Pseudomonas Aeruginosa Infected Sacral Wound 3. Gram-Negative and Gram-Positive Bacteremia 4. CAD s/p CABG 5. History of CVA 6. Hypertension 7. Cancer-Associated Pain 8. Neuropathic Pain 9. Parkinson's Disease PLAN -General Surgery consulted; appreciate their assistance with wound care -s/p excisional debridement of infected necrotic sacral decubitus ulcer about 11 x 9 x 2 cm. (12/30/2022); continues with pain -ID consulted; continuing with antibiotic therapy -Continue vancomycin and merrem; cultures positive for Pseudomonas and MRSA. Also with bacteroids sensitive to vancomycin. -Continue home tamsulosin -Transthoracic echocardiogramwith no vegetations -Continue home atorvastatin, carvedilol, clopidogrel, Imdur -Continue home fentanyl patch, gabapentin, hydrocodone-acetaminophen -Continue home carbidopa-levodopa, escitalopram
--- NOTE | 2023-01-09 06:42 | P.PN ---
Date of Service: 01/05/23 Subjective: Patient is doing well no new complaints. Physical Exam: Vitals: reviewed GEN: Alert, oriented, NAD CV: Regular rate & rhythm, no edema Pulm: Cear bilaterally ABD: Soft, nontender, nondistended MSK: Joint tenderness; low back pain; Integumentary: large unstageable sacral wound extending into deep tissue Neuro: No focal deficits; flat affect Problem List: 1. 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 MDR Pseudomonas Aeruginosa Infected Sacral Wound 3. Gram-Negative and Gram-Positive Bacteremia 4. CAD s/p CABG 5. History of CVA 6. Hypertension 7. Cancer-Associated Pain 8. Neuropathic Pain 9. Parkinson's Disease PLAN -General Surgery consulted; appreciate their assistance with wound care -s/p excisional debridement of infected necrotic sacral decubitus ulcer about 11 x 9 x 2 cm. (12/30/2022); continues with pain; Continue with wound care -ID consulted; continuing with antibiotic therapy as below: -Continue vancomycin and merrem; cultures positive for Pseudomonas and MRSA. Also with bacteroids sensitive to vancomycin. -Continue home tamsulosin -Transthoracic echocardiogramwith no vegetations -Continue home atorvastatin, carvedilol, clopidogrel, Imdur -Continue home fentanyl patch, gabapentin, hydrocodone-acetaminophen -Continue home carbidopa-levodopa, escitalopram
--- NOTE | 2023-01-09 06:44 | P.PN ---
Date of Service: 01/06/23 Subjective: Patient without new complaints. Patient is doing well with no symptomatic distress. Physical Exam: Vitals: reviewed GEN: Alert, oriented, NAD CV: Regular rate & rhythm, no edema Pulm: Cear bilaterally ABD: Soft, nontender, nondistended MSK: Joint tenderness; low back pain; Integumentary: large unstageable sacral wound extending into deep tissue Neuro: No focal deficits; flat affect Problem List: 1. 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 MDR Pseudomonas Aeruginosa Infected Sacral Wound 3. Gram-Negative and Gram-Positive Bacteremia 4. CAD s/p CABG 5. History of CVA 6. Hypertension 7. Cancer-Associated Pain 8. Neuropathic Pain 9. Parkinson's Disease PLAN -General Surgery consultation appreciated/assistance with wound care -s/p excisional debridement of infected necrotic sacral decubitus ulcer about 11 x 9 x 2 cm. (12/30/2022); continues with pain; Continue with wound care -ID consulted; continuing with antibiotic therapy as below: -Continue vancomycin and merrem; cultures positive for Pseudomonas and MRSA. Also with bacteroids sensitive to vancomycin. -Continue home tamsulosin -Transthoracic echocardiogramwith no vegetations -Continue home atorvastatin, carvedilol, clopidogrel, Imdur -Continue home fentanyl patch, gabapentin, hydrocodone-acetaminophen -Continue home carbidopa-levodopa, escitalopram
--- NOTE | 2023-01-09 06:45 | P.PN ---
Date of Service: 01/07/23 Subjective: patient is doing well no new complaints. Clinical symptoms are stable. Denied with LTAC placement; will do an expedited appeal and if patient is not accepted them will try for nursing home placement. Physical Exam: Vitals: reviewed GEN: Alert, oriented, NAD CV: Regular rate & rhythm, no edema Pulm: Cear bilaterally ABD: Soft, nontender, nondistended MSK: Joint tenderness; low back pain; Integumentary: large unstageable sacral wound extending into deep tissue Neuro: No focal deficits; flat affect Problem List: 1. 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 MDR Pseudomonas Aeruginosa Infected Sacral Wound 3. Gram-Negative and Gram-Positive Bacteremia 4. CAD s/p CABG 5. History of CVA 6. Hypertension 7. Cancer-Associated Pain 8. Neuropathic Pain 9. Parkinson's Disease PLAN -General Surgery consultation appreciated/assistance with wound care -s/p excisional debridement of infected necrotic sacral decubitus ulcer about 11 x 9 x 2 cm. (12/30/2022); continues with pain; Continue with wound care -ID consulted; continuing with antibiotic therapy as below: -Continue vancomycin and merrem; cultures positive for Pseudomonas and MRSA. Also with bacteroids sensitive to vancomycin. -Continue home tamsulosin -Transthoracic echocardiogramwith no vegetations -Continue home atorvastatin, carvedilol, clopidogrel, Imdur -Continue home fentanyl patch, gabapentin, hydrocodone-acetaminophen -Continue home carbidopa-levodopa, escitalopram -pending LTAC placement; waiting for expedited appeal to go through
--- NOTE | 2023-01-09 06:48 | P.PN ---
Date of Service: 01/08/23 Subjective: patient continues to improve. Patient denies any new complaints. Patient's clinical symptoms are stable. Expedited appeal has almost gone through. If we do not hear anything by today than anticipated tomorrow. If not accepted than [facility] facility placement Physical Exam: Vitals: reviewed GEN: Alert, oriented, NAD CV: Regular rate & rhythm, no edema Pulm: Cear bilaterally ABD: Soft, nontender, nondistended MSK: Joint tenderness; low back pain; Integumentary: large unstageable sacral wound extending into deep tissue Neuro: No focal deficits; flat affect Problem List: 1. 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 MDR Pseudomonas Aeruginosa Infected Sacral Wound 3. Gram-Negative and Gram-Positive Bacteremia 4. CAD s/p CABG 5. History of CVA 6. Hypertension 7. Cancer-Associated Pain 8. Neuropathic Pain 9. Parkinson's Disease PLAN -General Surgery consultation appreciated/assistance with wound care -s/p excisional debridement of infected necrotic sacral decubitus ulcer about 11 x 9 x 2 cm. (12/30/2022); continues with pain; Continue with wound care -ID consulted; continuing with antibiotic therapy as below: -Continue vancomycin and merrem; cultures positive for Pseudomonas and MRSA. Also with bacteroids sensitive to vancomycin. -Continue home tamsulosin -Transthoracic echocardiogramwith no vegetations -Continue home atorvastatin, carvedilol, clopidogrel, Imdur -Continue home fentanyl patch, gabapentin, hydrocodone-acetaminophen -Continue home carbidopa-levodopa, escitalopram -pending LTAC placement; waiting for expedited appeal to go through
--- NOTE | 2023-01-09 08:09 | P.PN ---
Date of Service: 01/09/23 Chief Complaint: Sacral decubitus ulceration Subjective: Patient seen at bedside. Resting comfortably in bed at this time. In no apparent distress. Denies any new or worsening complaints. LTAC appeal in progress. tube worker following. Physical Examination Temp Pulse Resp BP Pulse Ox 97.1 F 62 17 108/61 96 01/09/23 04:00 01/09/23 04:00 01/09/23 04:00 01/09/23 04:00 01/09/23 04:00 General: In no apparent distress. HEENT: Atraumatic, normocephalic. Neck supple. Respiratory: Clear to auscultation bilaterally, Normal air movement. On room air. Cardiovascular: No edema, Regular rate/rhythm Gastrointestinal: Normal bowel sounds, Soft and benign. Integumentary: Pressure ulcer stage 4 sacrum. Neurological: Paraplegic Urinary: Herrera catheter Studies Laboratory Data: Reviewed Microbiology Data: Reviewed Imaging Data: - Transthoracic echocardiogram 01/02: no clear vegetation seen Medications List: Reviewed Assessment and Plan Problem List Stage 4 Pressure Ulcer of Sacrum Paraplegia Hx Spinal tumors s/p excision CAD s/p CABG Hx Prostate Cancer stage 4 Lung cancer Infection of stage 4 sacral pressure ulcer - CT pelvis 12/29 "Deep soft tissue wound is seen the inferior to the sacrum lower posterior midline. This does not appear to extend into the intrapelvic cavity. No associated osteomyelitis or abscess evident." - s/p debridement of infected necrotic sacral decubitus ulcer~ 11 x 9 x 2 cm; down to muscle and bone on 12/[address] Yi - sacral wound culture 12/29: Staph aureus and Pseudomonas aeruginosa, multi- drug resistant - Previously on Cefepime (12/30-01/01) which was switched to Meropenem on 01/01 following wound culture/sensitivity reports - Currently on Meropenem (01/01-) and Vancomycin (12/30-) Blood cultures 12/29: updated 01/03- Bacteroides bivus in anaerobic bottles. staph hominis in 1 aerobic bottle. Contamination likely. Repeat blood cultures 01/05: No growth to date. No leukocytosis Afebrile Recommendations - s/p debridement of sacral pressure ulcer on 12/30 with extension down to muscle/bone. Concern for osteomyelitis, recommend continuing antibiotic therapy for 6 weeks duration (12/30 to 02/10) with Meropenem and Vancomycin. Patient will require PICC line. - continue wound care per surgeon Dr. Yi - Pressure offloading measures. Turn patient Q2H. Low air-loss mattress. - Follow up with repeat blood cultures Patient would benefit from LTAC placement due to long-term IV antibiotics 6 weeks Meropenem and Vancomycin, extensive wound care, paraplegia requiring assistance for optimal outcomes and wound healing. - LTAC appeal pending. CM/SW following. Case discussed with Oc Guallpa
[2023-01-09] MEDS: ENSURE ENLIVE 237 ML CAN PO SCH ×3 (08:31→20:48)
[2023-01-09] MEDS: JUVEN PACKET PO SCH ×2 (08:32→20:49)
[2023-01-09] MEDS: VITAMIN D 5,000 UNIT CAP PO SCH (08:34)
[2023-01-09] MEDS: GABAPENTIN 300 MG CAP PO SCH ×2 (08:34→20:47)
[2023-01-09] MEDS: CITALOPRAM 10 MG TABLET PO SCH (08:34)
[2023-01-09] MEDS: ISOSORBIDE MONO SR 30 MG TAB PO SCH (08:34)
[2023-01-09] MEDS: TAMSULOSIN 0.4 MG SR CAP PO SCH (08:35)
[2023-01-09] MEDS: COLLAGENASE 30 GM OINTMENT TOP SCH (08:36)
[2023-01-09] MEDS: CARBIDOPA/LEVODOPA 25/100 TAB PO SCH ×2 (10:18→20:48)
--- NOTE | 2023-01-09 13:34 | P.PN ---
Subjective Date of Service: 01/09/23 Chief Complaint: Sacral decubitus ulceration POD #9 excisional debridement of infected necrotic sacral decubitus ulcer about 11 x 9 x 2 cm. He that his pain is well controlled. LTAC expedited appeal is pending. He denies any fevers or chills. Review of Systems 10-point ROS is otherwise unremarkable Musculoskeletal: Back Pain (minimal) Physical Examination - Vital Signs Temperature: 97.1 F Blood Pressure: 122/65 Pulse: 61 Respirations: 16 Pulse Ox (%): 97 Assessment And Plan - Plan - Physical Exam General: Alert, In no apparent distress, Oriented x3 HEENT: Atraumatic, Sclerae nonicteric Respiratory: Clear to auscultation bilaterally, Normal air movement Cardiovascular: No edema, Regular rate/rhythm, No murmurs Gastrointestinal: Normal bowel sounds, Soft, Non-distended, No tenderness Integumentary: Other (large unstageable sacral wound extending into deep tissue) Neurological: Normal speech, Normal affect # 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 This does not appear to extend into the intrapelvic cavity. No associated osteomyelitis or abscess evident." - General Surgery consulted and spoke with Dr. Yi - S/P excisional debridement of infected necrotic sacral decubitus ulcer about 11 x 9 x 2 cm. (12/30/2022) - Infectious Diseases consulted and spoke with SPUD SORTER Sgarbi - Continue vancomycin + meropenem - Continue home tamsulosin - Wound culture: MDR Pseudomonas Aeruginosa, MSSA - Blood cultures: 2/4 positive for Bacterioides Bivius and 1/4 positive for Staphyloccocus Hominis - Transthoracic echocardiogram = "1. normal left ventricular ejection fraction 55-60% with normal wall motion 2. grade I diastolic dysfunction 3. mild mitral regurgitation, tricuspid regurgitation, pulmonic insufficiency 4. no clear vegetation is seen on this exam" # Coronary Artery Disease s/p CABG # History of Cerebrovascular Accident # Hypertension - Continue home atorvastatin, carvedilol, clopidogrel, Imdur # Cancer-Associated Pain # Neuropathic Pain - Continue home fentanyl patch, gabapentin, hydrocodone-acetaminophen # Parkinson's Disease - Continue home carbidopa-levodopa, escitalopram Srinath Crawford M.D.
[2023-01-09] MEDS: HYDROCODONE/APAP 7.5/325 MG TAB PO PRN (14:29)
[2023-01-09 15:35] LABS: Absolute Lymphocytes (CBC) 2.4 K/uL (0.7-4.9); Hematocrit 33.7 % (39.6-49.0); MCV 78.5 fL (80-100); MPV 6.1 fL (7.6-11.3); Platelets 283 thou/uL (152-406); RBC Red Blood Cell Count 4.29 M/uL (4.33-5.43)
[2023-01-09 15:51] LABS: AST/SGOT 18 U/L (15-37); Albumin 2.3 g/dL (3.4-5.0); Alkaline Phosphatase 87 U/L (45-117); BUN Blood Urea Nitrogen 11 mg/dL (7-18); Bicarbonate 33 mEq/L (21-32); Bilirubin Total 0.5 mg/dL (0.2-1.0); Glomerular Filtration Rate 114 ml/min (=/>90); Glucose Level 117 mg/dL (74-106); Potassium 4.5 mEq/L (3.5-5.1); Protein, Total 5.7 g/dL (6.4-8.2); Sodium Level 141 mEq/L (136-145)
[2023-01-09 15:52] LABS: ALT/SGPT < 10 U/L (16-61)
[2023-01-09] MEDS: ONDANSETRON 4 MG/2 ML VIAL IV PRN (17:10)
[2023-01-09] MEDS: MORPHINE 2 MG/ML SYR IV PRN ×2 (17:11→20:41)
[2023-01-09] MEDS: VANCOMYCIN 2 GM in NA CHLORIDE 0.9% 500 ML IVPB SCH (18:31)
[2023-01-09] MEDS: PANTOPRAZOLE 40MG TABLET PO SCH (20:47)
[2023-01-09] MEDS: ATORVASTATIN 40 MG TAB PO SCH (20:48)
[2023-01-09] MEDS: CLOPIDOGREL 75 MG TABLET PO SCH (20:48)
[2023-01-09] MEDS: carvediloL 6.25 MG TAB PO SCH (20:55)
[2023-01-10] MEDS: MORPHINE 2 MG/ML SYR IV PRN ×3 (00:21→13:25)
[2023-01-10] MEDS: Meropenem 1,000 MG in NA CHLORIDE 0.9% 100 ML IV SCH ×3 (00:26→16:58)
[2023-01-10] MEDS: NA CHLORIDE 0.9% 1,000 ML IV SCH ×2 (05:32→16:56)
[2023-01-10 06:15] LABS: AST/SGOT 18 U/L (15-37); Albumin 1.9 g/dL (3.4-5.0); Alkaline Phosphatase 80 U/L (45-117); BUN Blood Urea Nitrogen 9 mg/dL (7-18); Bicarbonate 31 mEq/L (21-32); Bilirubin Total 0.4 mg/dL (0.2-1.0); Glomerular Filtration Rate 133 ml/min (=/>90); Glucose Level 114 mg/dL (74-106); Potassium 3.3 mEq/L (3.5-5.1); Protein, Total 5.2 g/dL (6.4-8.2); Sodium Level 136 mEq/L (136-145)
[2023-01-10 06:16] LABS: ALT/SGPT < 6 U/L (16-61)
[2023-01-10 06:18] LABS: Absolute Lymphocytes (CBC) 2.4 K/uL (0.7-4.9); Hematocrit 30.2 % (39.6-49.0); Lymphocytes % 33.7 % (15.3-44.8); MCV 77.9 fL (80-100); MPV 6.5 fL (7.6-11.3); Platelets 280 thou/uL (152-406); RBC Red Blood Cell Count 3.88 M/uL (4.33-5.43)
--- NOTE | 2023-01-10 08:03 | P.PN ---
Date of Service: 01/10/23 Chief Complaint: Sacral decubitus ulceration Subjective: No acute events reported overnight. patient reports sacral pain, especially when turning or wound care. at bedside. LTAC appeal denied. Pending SNF placement. CM/SW following. Physical Examination Temp Pulse Resp BP Pulse Ox 97.5 F 64 18 149/68 H 93 01/10/23 04:00 01/10/23 04:00 01/10/23 04:00 01/10/23 04:00 01/10/23 04:00 General: In no apparent distress. HEENT: Atraumatic, normocephalic. Neck supple. Respiratory: Clear to auscultation bilaterally, Normal air movement. On room air. Cardiovascular: No edema, Regular rate/rhythm Gastrointestinal: Normal bowel sounds, Soft and benign. Integumentary: Pressure ulcer stage 4 sacrum. Neurological: Paraplegic Urinary: Herrera catheter Studies Laboratory Data: Reviewed Microbiology Data: Reviewed Imaging Data: - Transthoracic echocardiogram 01/02: no clear vegetation seen Medications List: Reviewed Assessment and Plan Problem List Stage 4 Pressure Ulcer of Sacrum Paraplegia Hx Spinal tumors s/p excision CAD s/p CABG Hx Prostate Cancer stage 4 Lung cancer Infection of stage 4 sacral pressure ulcer - CT pelvis 12/29 "Deep soft tissue wound is seen the inferior to the sacrum lower posterior midline. This does not appear to extend into the intrapelvic cavity. No associated osteomyelitis or abscess evident." - s/p debridement of infected necrotic sacral decubitus ulcer~ 11 x 9 x 2 cm; down to muscle and bone on 12/[address] Yi - sacral wound culture 12/29: Staph aureus and Pseudomonas aeruginosa, multi- drug resistant - Previously on Cefepime (12/30-01/01) which was switched to Meropenem on 01/01 following wound culture/sensitivity reports - Currently on Meropenem (01/01-) and Vancomycin (12/30-) Blood cultures 12/29: updated 01/03- Bacteroides bivus in anaerobic bottles. staph hominis in 1 aerobic bottle. Contamination likely. Repeat blood cultures 01/05: No growth to date. No leukocytosis Afebrile Recommendations - s/p debridement of sacral pressure ulcer on 12/30 with extension down to muscle/bone. Concern for osteomyelitis, recommend continuing antibiotic therapy for 6 weeks duration (12/30 to 02/10) with Meropenem and Vancomycin. Patient will require PICC line. - continue wound care per surgeon Dr. Yi - Pressure offloading measures. Turn patient Q2H. Low air-loss mattress. - LTAC appeal denied. Pending SNF placement. CM/SW following. Plan of care discussed with patient and at bedside. Case discussed with Oc Guallpa
[2023-01-10] MEDS: ISOSORBIDE MONO SR 30 MG TAB PO SCH (08:26)
[2023-01-10] MEDS: VITAMIN D 5,000 UNIT CAP PO SCH (08:27)
[2023-01-10] MEDS: CARBIDOPA/LEVODOPA 25/100 TAB PO SCH ×2 (08:27→20:35)
[2023-01-10] MEDS: TAMSULOSIN 0.4 MG SR CAP PO SCH (08:27)
[2023-01-10] MEDS: CITALOPRAM 10 MG TABLET PO SCH (08:27)
[2023-01-10] MEDS: GABAPENTIN 300 MG CAP PO SCH ×2 (08:27→20:35)
[2023-01-10] MEDS: ENSURE ENLIVE 237 ML CAN PO SCH ×3 (08:29→20:37)
[2023-01-10] MEDS: COLLAGENASE 30 GM OINTMENT TOP SCH (08:30)
[2023-01-10] MEDS: JUVEN PACKET PO SCH ×2 (08:34→20:38)
[2023-01-10] MEDS: FENTANYL 75 MCG/PATCH TD SCH (12:25)
[2023-01-10] MEDS ORDERED: NA CHLORIDE 0.9% 100 ML ONE (16:35)
[2023-01-10] MEDS ORDERED: Meropenem 1000 MG/VIAL IV ONE (16:37)
[2023-01-10] MEDS ORDERED: NA CHLORIDE 0.9% 500 ML IV ONE (16:55)
[2023-01-10] MEDS ORDERED: VANCOMYCIN 1.75 GM in NA CHLORIDE 0.9% 500 ML IVPB SCH (18:00)
--- NOTE | 2023-01-10 20:12 | P.PN ---
Subjective Date of Service: 01/10/23 Chief Complaint: Sacral decubitus ulceration POD #10 excisional debridement of infected necrotic sacral decubitus ulcer about 11 x 9 x 2 cm. He states that his pain is well controlled. LTAC has been denied by insurance. CM currently working on SNF placement. He denies any fevers or ch ills. Review of Systems 10-point ROS is otherwise unremarkable General: Weakness (generalized) Physical Examination - Vital Signs Temperature: 97.0 F Blood Pressure: 92/42 Pulse: 65 Respirations: 16 Pulse Ox (%): 91 Assessment And Plan - Plan - Physical Exam General: Alert, In no apparent distress, Oriented x3 HEENT: Atraumatic, Sclerae nonicteric Respiratory: Clear to auscultation bilaterally, Normal air movement Cardiovascular: No edema, Regular rate/rhythm, No murmurs Gastrointestinal: Normal bowel sounds, Soft, Non-distended, No tenderness Integumentary: Other (large unstageable sacral wound extending into deep tissue) Neurological: Normal speech, Normal affect # 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 This does not appear to extend into the intrapelvic cavity. No associated osteomyelitis or abscess evident." - General Surgery consulted and spoke with Dr. Yi - S/P excisional debridement of infected necrotic sacral decubitus ulcer about 11 x 9 x 2 cm. (12/30/2022) - Infectious Diseases consulted and spoke with SCALEMAKER Sgarbi - Continue vancomycin + meropenem - Continue home tamsulosin - Wound culture: MDR Pseudomonas Aeruginosa, MSSA - Blood cultures: 2/4 positive for Bacterioides Bivius and 1/4 positive for Staphyloccocus Hominis - Transthoracic echocardiogram = "1. normal left ventricular ejection fraction 55-60% with normal wall motion 2. grade I diastolic dysfunction 3. mild mitral regurgitation, tricuspid regurgitation, pulmonic insufficiency 4. no clear vegetation is seen on this exam" # Coronary Artery Disease s/p CABG # History of Cerebrovascular Accident # Hypertension - Continue home atorvastatin, carvedilol, clopidogrel, Imdur # Cancer-Associated Pain # Neuropathic Pain - Continue home fentanyl patch, gabapentin, hydrocodone-acetaminophen # Parkinson's Disease - Continue home carbidopa-levodopa, escitalopram Disposition: LTAC denied. CM working on SNF placement. Srinath Crawford M.D.
[2023-01-10] MEDS: ATORVASTATIN 40 MG TAB PO SCH (20:35)
[2023-01-10] MEDS: PANTOPRAZOLE 40MG TABLET PO SCH (20:35)
[2023-01-10] MEDS: carvediloL 6.25 MG TAB PO SCH (20:35)
[2023-01-10] MEDS: CLOPIDOGREL 75 MG TABLET PO SCH (20:37)
[2023-01-11] MEDS: Meropenem 1,000 MG in NA CHLORIDE 0.9% 100 ML IV SCH ×2 (00:34→07:51)
[2023-01-11] MEDS: NA CHLORIDE 0.9% 1,000 ML IV SCH (04:10)
[2023-01-11] MEDS: MORPHINE 2 MG/ML SYR IV PRN (04:10)
[2023-01-11 04:26] LABS: Phosphorus 1.9 mg/dL (2.5-4.9); Potassium 3.5 mEq/L (3.5-5.1)
[2023-01-11] MEDS: ENSURE ENLIVE 237 ML CAN PO SCH ×2 (07:50→14:00)
[2023-01-11] MEDS: JUVEN PACKET PO SCH (07:50)
[2023-01-11] MEDS: TAMSULOSIN 0.4 MG SR CAP PO SCH (07:51)
[2023-01-11] MEDS: CITALOPRAM 10 MG TABLET PO SCH (07:51)
[2023-01-11] MEDS: VITAMIN D 5,000 UNIT CAP PO SCH (07:52)
[2023-01-11] MEDS: ISOSORBIDE MONO SR 30 MG TAB PO SCH (07:52)
[2023-01-11] MEDS: COLLAGENASE 30 GM OINTMENT TOP SCH (07:52)
[2023-01-11] MEDS: GABAPENTIN 300 MG CAP PO SCH ×3 (07:52→15:12)
[2023-01-11] MEDS: CARBIDOPA/LEVODOPA 25/100 TAB PO SCH (08:01)
--- NOTE | 2023-01-11 09:06 | P.PN ---
Date of Service: 01/11/23 Chief Complaint: Sacral decubitus ulceration Subjective: Patient reports sacrum pain. In no apparent distress. No acute events reported overnight. at bedside. Plan of care discussed with patient and . Pending discharge to [facility]. Physical Examination Temp Pulse Resp BP Pulse Ox 97 F 60 18 113/58 L 95 01/11/23 04:00 01/11/23 04:00 01/11/23 04:40 01/11/23 04:00 01/11/23 04:40 General: In no apparent distress. HEENT: Atraumatic, normocephalic. Neck supple. Respiratory: Clear to auscultation bilaterally, Normal air movement. On room air. Cardiovascular: No edema, Regular rate/rhythm Gastrointestinal: Normal bowel sounds, Soft and benign. Integumentary: Pressure ulcer stage 4 sacrum. Neurological: Paraplegic Urinary: Herrera catheter Studies Laboratory Data: Reviewed Microbiology Data: Reviewed Imaging Data: - Transthoracic echocardiogram 01/02: no clear vegetation seen Medications List: Reviewed Assessment and Plan Problem List Stage 4 Pressure Ulcer of Sacrum Paraplegia Hx Spinal tumors s/p excision CAD s/p CABG Hx Prostate Cancer stage 4 Lung cancer Infection of stage 4 sacral pressure ulcer Suspected Osteomyelitis - CT pelvis 12/29 "Deep soft tissue wound is seen the inferior to the sacrum lower posterior midline. This does not appear to extend into the intrapelvic cavity. No associated osteomyelitis or abscess evident." - s/p debridement of infected necrotic sacral decubitus ulcer~ 11 x 9 x 2 cm; down to muscle and bone on 12/[address] Yi - sacral wound culture 12/29: Staph aureus and Pseudomonas aeruginosa, multi- drug resistant - Previously on Cefepime (12/30-01/01) which was switched to Meropenem on 01/01 following wound culture/sensitivity reports - Currently on Meropenem (01/01-) and Vancomycin (12/30-) Blood cultures 12/29: updated 01/03- Bacteroides bivus in anaerobic bottles. staph hominis in 1 aerobic bottle. Contamination likely. Repeat blood cultures 01/05: No growth to date. No leukocytosis Afebrile Recommendations - s/p debridement of sacral pressure ulcer on 12/30 with extension down to muscle/bone. Concern for osteomyelitis, recommend continuing Meropenem and Vancomycin for 6 weeks duration (12/30 to 02/10). Obtain CBC, BMP and vanco trough at least 2 times per week (monday and ) while on IV antibiotics. - Continue wound care per Dr. Yi - Pressure offloading measures. Turn patient Q2H. Low air-loss mattress. Wedge pillows. Pending discharge to [facility]. Case discussed with Oc Guallpa
--- NOTE | 2023-01-11 10:32 | P.DS ---
Admission Date: 12/29/22 Discharge Date: 01/11/23 Disposition: TRANSFER TO [facility] Comment: [facility] Discharge Condition: GOOD Reason for Admission: Sacral decubitus ulceration Consultations: 1. General Surgery 2. 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 Blaine Silva is a pleasant 72 year old male with a past medical history significant for metastatic prostate cancer to spine and lung s/p spinal tumor excision complicated by paraplegia and unstageable sacral wound, coronary artery disease s/p CABG, prior cerebrovascular accident, Parkinson's disease, and hypertension who was admitted to the [facility] on 12/29/2022 for concerns of an infected sacral ulcer. He was admitted to the Medicine service. Upon further evaluation, his CT pelvis revealed, "deep soft tissue wound is seen the inferior to the sacrum lower posterior midline. This does not appear to extend into the intrapelvic cavity. No associated osteomyelitis or abscess evident." General Surgery was consulted and he was evaluated by Dr. Yi. On 12/30/2022, he underwent an excisional debridement of infected necrotic sacral decubitus ulcer. His wound cultures wound return positive for multi-drug resistant Pseudomonas Aeruginosa and Methicillin-Sensitive Staphylococcus Aureus. 2 of his 4 his blood cultures would return positive for Bacterioides Bivius and 1 of his 4 blood cultures would return positive for Staphylococcus Hominis. A transthoraic echocardiogram re vealed, "1. normal left ventricular ejection fraction 55-60% with normal wall motion 2. grade I diastolic dysfunction 3. mild mitral regurgitation, tricuspid regurgitation, pulmonic insufficiency 4. no clear vegetation is seen on this exam." Infectious Diseases was consulted and he was evaluated by Dr. Beasley. He has cleared him for discharge with 6 weeks of vancomycin + meropenem (end date: 02/10/2023). Initially, the plan was for discharge to LTAC, but this was denied by insurance. With the assistance of case management, he was accepted to [facility]. On 01/11/2023, he was seen on morning rounds and deemed medically stable for discharge. He was discharged with instructions to schedule follow-up appointments with his PCP and with General Surgery (Dr. Yi). He and his family members were given the opportunity to ask questions and reported no further questions. Furthermore, all questions were answered to the best of my ability. A copy of this discharge summary will be sent to the above providers to facilitate continuity of care. Today, I personally spent 25 minutes on his case, of which greater than 50% of the time was spent in patient education, counseling, and coordination of care as described above. - Physical Exam General: Alert, In no apparent distress, Oriented x3 HEENT: Atraumatic, Sclerae nonicteric Respiratory: Clear to auscultation bilaterally, Normal air movement Cardiovascular: No edema, Regular rate/rhythm, No murmurs Gastrointestinal: Normal bowel sounds, Soft, Non-distended, No tenderness Integumentary: Other (large unstageable sacral wound covered in clean dressing) Neurological: Normal speech, Normal affect Vital Signs/Physical Exam: Temp Pulse Resp BP Pulse Ox 97 F 60 18 113/58 L 95 01/11/23 04:00 01/11/23 04:00 01/11/23 04:40 01/11/23 04:00 01/11/23 04:40 Laboratory Data at Discharge: WBC 7.10 thou/uL (4.3-10.9) 01/10/23 05:35 Hgb 10.4 g/dL (13.6-17.9) L 01/10/23 05:35 Hct 30.2 % (39.6-49.0) L 01/10/23 05:35 Plt Count 280 thou/uL (152-406) 01/10/23 05:35 Sodium 139 mEq/L (136-145) 01/11/23 03:50 Potassium 3.5 mEq/L (3.5-5.1) 01/11/23 03:50 BUN 10 mg/dL (7-18) 01/11/23 03:50 Creatinine 0.27 mg/dL (0.70-1.30) L 01/11/23 03:50 Glucose 89 mg/dL (74-106) 01/11/23 03:50 Phosphorus 1.9 mg/dL (2.5-4.9) L 01/11/23 03:50 Magnesium 2.0 mg/dL (1.6-2.4) 01/11/23 03:50 Total Bilirubin 0.4 mg/dL (0.2-1.0) 01/10/23 05:35 AST 18 U/L (15-37) 01/10/23 05:35 ALT < 6 U/L (16-61) L 01/10/23 05:35 Alkaline Phosphatase 80 U/L (45-117) 01/10/23 05:35 Home Medications: Atorvastatin Calcium [Lipitor] 40 mg PO BEDTIME 09/30/21 Carbidopa/Levodopa [Sinemet 25-100 mg Tablet] 4 each PO BID 09/30/21 Clopidogrel Bisulfate [Plavix] 75 mg PO BEDTIME 09/30/21 Gabapentin 300 mg PO DAILY 11/01/22 Gabapentin 600 mg PO BEDTIME 11/01/22 Isosorbide Mononitrate [Isosorbide Mononitrate ER] 30 mg PO DAILY 11/01/22 Apixaban [Eliquis] 1 tab PO BID 11/02/22 Cholecalciferol (Vitamin D3) [Vitamin D3] 1 tab PO DAILY 11/02/22 Fentanyl Patch [Duragesic Patch*] 50 mcg TD Q72H #2 patch 11/14/22 Hydrocodone 7.5/APAP 325 [[place] 7.5/325 mg*] 1 tab PO TID PRN #12 tab 11/14/22 Citalopram Hydrobromide [Citalopram HBr] 20 mg PO DAILY 12/30/22 Nitroglycerin 0.4 mg SL PRN PRN 12/30/22 Ondansetron [Ondansetron Odt] 8 mg PO Q8H PRN 12/30/22 Pantoprazole [Protonix Tab*] 40 mg PO BEDTIME 12/30/22 Tamsulosin HCl 0.4 mg PO DAILY 12/30/22 carvediloL [Carvedilol] 6.25 mg PO BEDTIME 12/30/22 Collagenase [Santyl Ointment*] 1 appl TOP DAILY tube 01/11/23 Ensure Enlive 237 ml PO TID can 01/11/23 Salas [Salas*] 1 pkt PO BID 01/11/23 Meropenem-0.9% Sodium Chloride [Meropenem-0.9% NaCl 1 Gram/50] 1 gm IV Q8H 30 Days #1 01/11/23 Vancomycin/0.9 % Sod Chloride [Vanco 1.75 gm/500 ml-0.9% NaCl] 1.75 gm IV Q24H 30 Days #1 01/11/23 New Medications: Meropenem-0.9% Sodium Chloride [Meropenem-0.9% NaCl 1 Gram/50] 1 gm IV Q8H 30 Days #1 Vancomycin/0.9 % Sod Chloride [Vanco 1.75 gm/500 ml-0.9% NaCl] 1.75 gm IV Q24H 30 Days #1 Physician Discharge Instructions: - Continue care at [facility] - While there, please have your physician order a CBC, BMP, and vancomycin level 2 times per week Diet: AHA Activity: Fall precautions Followup: NONE,NONE [Primary Care Provider] - Fredy Yi MD [ACTIVE - CAN ADMIT] - Time spent managing pt's care (in minutes): 25
[2023-01-11] MEDS: ONDANSETRON 4 MG/2 ML VIAL IV PRN (12:43)
[2023-01-11] MEDS ORDERED: HYDROCODONE/APAP 7.5/325 MG TAB PO ONE (12:45)
[2023-01-12 12:42] VITALS: BP 125/57; TEMP 98.7
[2023-01-12 13:34] VITALS: O2SAT 94
== END 2023-01-11 15:55 | DRG 580 ==
LOC: ER 15:18 → 2ND 19:53 → ERHOLD 19:53 → UNDOADMIN 19:53 → ERHOLD 20:51 → 2ND 20:51
PROVIDERS: ADMIT Internal Medicine; ATTEND Internal Medicine
PROC: 0QB10ZZ Excision of Sacrum, Open Approach (ICD-10-PCS; 2022-12-30)
PROC: 0JD70ZZ Extraction of Back Subcutaneous Tissue and Fascia, Open Approach (ICD-10-PCS; principal; 2022-12-30 16:15)
DX: L89.154 Pressure ulcer of sacral region, stage 4 (principal); C78.00 Secondary malignant neoplasm of unspecified lung; C79.51 Secondary malignant neoplasm of bone; G82.20 Paraplegia, unspecified; R78.81 Bacteremia; Z16.24 Resistance to multiple antibiotics; C61 Malignant neoplasm of prostate; G89.3 Neoplasm related pain (acute) (chronic); I08.1 Rheumatic disorders of both mitral and tricuspid valves; G62.9 Polyneuropathy, unspecified; F17.220 Nicotine dependence, chewing tobacco, uncomplicated; I25.10 Atherosclerotic heart disease of native coronary artery without angina pectoris; I25.2 Old myocardial infarction; B95.62 Methicillin resistant Staphylococcus aureus infection as the cause of diseases classified elsewhere; B96.5 Pseudomonas (aeruginosa) (mallei) (pseudomallei) as the cause of diseases classified elsewhere; Z95.5 Presence of coronary angioplasty implant and graft; Z95.1 Presence of aortocoronary bypass graft; Z95.0 Presence of cardiac pacemaker; Z85.46 Personal history of malignant neoplasm of prostate; Z86.73 Personal history of transient ischemic attack (TIA), and cerebral infarction without residual deficits; Z79.02 Long term (current) use of antithrombotics/antiplatelets; Z79.01 Long term (current) use of anticoagulants; Z79.899 Other long term (current) drug therapy
CPT/HCPCS: 36415; 72193; 80048; 80053; 80202; 82947; 83605; 83735; 84100; 84145; 85025; 87040; 87070; 87075; 87077; 87185; 87186; 87205; 88304; 92526; 92610; 93306; 99285; J0692; J0696; J2185; J2270; J2405; J2704; J3010; J3590; J7030; J7040; Q9967